=== PATIENT | female | born 1955 | race Caucasian/White ===

== ENCOUNTER → 2016-12-16 | Outpatient (CLI) | payer MEDICARE, BC ==
--- NOTE | 2016-12-16 14:08 | XR ---
EXAMINATION TYPE: XR chest 2V DATE OF EXAM: 12/16/2016 2:02 PM HISTORY: J20.9 Acute bronchitis. REFERENCE: Previous study dated 07/08/2013. FINDINGS: The lungs are overinflated. The heart is enlarged. There is some scarring in the right midl jaz. Lungs otherwise clear. Pleural spaces are clear. IMPRESSION: 1. COPD. 2. CARDIOMEGALY.
== END | disposition home or self-care (01) ==
LOC: RADXRMAIN 13:45
PROVIDERS: ATTEND Family Medicine
DX: J44.9 Chronic obstructive pulmonary disease, unspecified (principal); I51.7 Cardiomegaly
CPT/HCPCS: 71020

== ENCOUNTER 2017-05-22 16:06 | Inpatient (IN) | payer MEDICARE, BC ==
[2017-05-22] MEDS ORDERED: SODIUM CHLORIDE 0.9% 1,000 ML IV STA (16:34)
[2017-05-22] MEDS ORDERED: methylPREDNISolone SOD SUCCI 125 MG/2 ML VIAL IV STA (16:34)
[2017-05-22] MEDS ORDERED: ALBUTEROL NEBULIZED 15 MG, IPRATROPIUM NEBULIZED 0.5 MG INHALATION ONE ×2 (16:35)
--- NOTE | 2017-05-22 16:39 | ED ---
General Adult HPI - General Chief complaint: Shortness of Breath Stated complaint: SOB Time Seen by Provider: 05/22/17 16:29 Source: EMS, RN notes reviewed Mode of arrival: EMS Limitations: no limitations - History of Present Illness Initial comments: Patient 61-year-old female significant past ALLERGIC for COPD, who presents emergency room today with chief complaint of increased cough congestion. Does not that she saw her family doctor yesterday was started on antibiotics for sinus infection. States not started antibiotic. Patient does have breathing treatments at home has not used one at home. States she did call EMS because she has had increased cough congestion and some chest pain that started this morning approximately 10:30 AM. States breathing treatment given by EMS to give her some relief. States still feeling short of breath still having cough with positive sputum production that is green in color. Patient denies any recent fever, chills, chest pain, back pain, abdominal pain, nausea or vomiting , numbness or tingling, dysuria or hematuria, constipation or diarrhea, headaches or visual changes, or any other complaints. - Related Data Home Medications Medication Instructions Recorded Confirmed Digoxin [Lanoxin] 125 mcg PO DAILY 05/22/17 05/22/17 Escitalopram [Lexapro] 10 mg PO DAILY 05/22/17 05/22/17 Furosemide [Lasix] 40 mg PO BID 05/22/17 05/22/17 Loratadine [Claritin] 10 mg PO DAILY 05/22/17 05/22/17 Temazepam [Restoril] 30 mg PO HS 05/22/17 05/22/17 Warfarin [Coumadin] 2 mg PO DAILY 05/22/17 05/22/17 oxyCODONE-APAP 10-325MG [Percocet 1 tab PO Q4H PRN 05/22/17 05/22/17 10-325 mg] Allergies Allergy/AdvReac Type Severity Reaction Status Date / Time ciprofloxacin [From Cipro] Allergy Rash/Hives Verified 05/22/17 16:28 Sulfa (Sulfonamide Allergy Rash/Hives Verified 05/22/17 16:28 Antibiotics) Review of Systems ROS Statement: Those systems with pertinent positive or pertinent negative responses have been documented in the HPI. ROS Other: All systems not noted in ROS Statement are negative. Past Medical History Past Medical History: Heart Failure, CVA/TIA, Hypertension Additional Past Medical History / Comment(s): COPD, Back issues History of Any Multi-Drug Resistant Organisms: None Reported Past Surgical History: Cholecystectomy Additional Past Surgical History / Comment(s): ankle surgery (right ankle), Bilateral hand surgery- Carap Tunnel. D'C for miscarriage. Past Psychological History: No Psychological Hx Reported Smoking Status: Current every day smoker Past Alcohol Use History: None Reported Past Drug Use History: None Reported General Exam - General Exam Comments Initial Comments: General: The patient is awake and alert, in no distress, and does not appear acutely ill. Eye: Pupils are equal, round and reactive to light, extra-ocular movements are intact. No nystagmus. There is normal conjunctiva bilaterally. No signs of icterus. Ears, nose, mouth and throat: There are moist mucous membranes and no oral lesions. Neck: The neck is supple, there is no tenderness or JVD. Cardiovascular: There is a regular rate and rhythm. No murmur, rub or gallop is appreciated. Respiratory: Bilateral expiratory wheeze and scattered rhonchi. respirations are non-labored, breath sounds are equal. No stridor, rales. Musculoskeletal: Normal ROM, no tenderness. Strength 5/5. Sensation intact. Pulses equal bilaterally 2+. Neurological: A&O x 3. CN II-XII intact, There are no obvious motor or sensory deficits. Coordination appears grossly intact. Speech is normal. Skin: Skin is warm and dry and no rashes or lesions are noted. Psychiatric: Cooperative, appropriate mood & affect, normal judgment. Limitations: no limitations Course Vital Signs 05/22/17 05/22/17 05/22/17 16:23 16:46 16:59 Temperature 98.1 F Pulse Rate 83 85 83 Respiratory 24 18 Rate Blood Pressure 131/86 117/75 O2 Sat by Pulse 91 L 97 Oximetry 05/22/17 05/22/17 05/22/17 17:02 17:18 17:50 Temperature Pulse Rate 95 94 103 H Respiratory Rate Blood Pressure O2 Sat by Pulse Oximetry 05/22/17 05/22/17 17:59 18:29 Temperature 98.6 F Pulse Rate 114 H 125 H Respiratory 26 H 30 H Rate Blood Pressure 139/90 144/63 O2 Sat by Pulse 96 94 L Oximetry EKG Findings - EKG Comments: EKG Findings:: EKG performed at 1619: Shows atrial fibrillation at 89 bpm. QRS 78. QT/QTC 368/447. No acute ST changes. Medical Decision Making - Medical Decision Making Patient's chest x-ray does show an infiltrate. Patient's labs been reviewed. Patient was given breathing treatment here in the emergency room does admit some improvement. Patient will be admitted or on antibiotics and continued on steroids and breathing treatments. - Lab Data Result diagrams: 05/22/17 16:51 05/22/17 16:51 Lab Results 05/22/17 05/22/17 05/22/17 Range/Units 16:51 16:51 16:51 WBC 9.6 (3.8-10.6) k/uL RBC 4.90 (3.80-5.40) m/uL Hgb 15.5 (11.4-16.0) gm/dL Hct 45.2 (34.0-46.0) % MCV 92.1 (80.0-100.0) fL MCH 31.6 (25.0-35.0) pg MCHC 34.3 (31.0-37.0) g/dL RDW 14.1 (11.5-15.5) % Plt Count 198 (150-450) k/uL Neutrophils % 81 % Lymphocytes % 10 % Monocytes % 7 % Eosinophils % 0 % Basophils % 1 % Neutrophils # 7.8 H (1.3-7.7) k/uL Lymphocytes # 1.0 (1.0-4.8) k/uL Monocytes # 0.6 (0-1.0) k/uL Eosinophils # 0.0 (0-0.7) k/uL Basophils # 0.1 (0-0.2) k/uL PT (9.0-12.0) sec INR (<1.2) APTT (22.0-30.0) sec Sodium 143 (137-145) mmol/L Potassium 4.0 (3.5-5.1) mmol/L Chloride 107 (98-107) mmol/L Carbon Dioxide 24 (22-30) mmol/L Anion Gap 12 mmol/L BUN 8 (7-17) mg/dL Creatinine 0.69 (0.52-1.04) mg/dL Est GFR (MDRD) Af Amer >60 (>60 ml/min/1.73 sqM) Est GFR (MDRD) Non-Af >60 (>60 ml/min/1.73 sqM) Glucose 109 H (74-99) mg/dL Calcium 9.4 (8.4-10.2) mg/dL Total Bilirubin 2.2 H (0.2-1.3) mg/dL AST 44 H (14-36) U/L ALT 35 (9-52) U/L Alkaline Phosphatase 140 H (38-126) U/L Total Creatine Kinase 255 H (30-135) U/L CK-MB (CK-2) 1.0 (0.0-2.4) ng/mL CK-MB (CK-2) Rel Index 0.4 Troponin I <0.012 (0.000-0.034) ng/mL Total Protein 7.5 (6.3-8.2) g/dL Albumin 4.5 (3.5-5.0) g/dL 05/22/17 Range/Units 16:51 WBC (3.8-10.6) k/uL RBC (3.80-5.40) m/uL Hgb (11.4-16.0) gm/dL Hct (34.0-46.0) % MCV (80.0-100.0) fL MCH (25.0-35.0) pg MCHC (31.0-37.0) g/dL RDW (11.5-15.5) % Plt Count (150-450) k/uL Neutrophils % % Lymphocytes % % Monocytes % % Eosinophils % % Basophils % % Neutrophils # (1.3-7.7) k/uL Lymphocytes # (1.0-4.8) k/uL Monocytes # (0-1.0) k/uL Eosinophils # (0-0.7) k/uL Basophils # (0-0.2) k/uL PT 19.3 H (9.0-12.0) sec INR 2.0 H (<1.2) APTT 31.1 H (22.0-30.0) sec Sodium (137-145) mmol/L Potassium (3.5-5.1) mmol/L Chloride (98-107) mmol/L Carbon Dioxide (22-30) mmol/L Anion Gap mmol/L BUN (7-17) mg/dL Creatinine (0.52-1.04) mg/dL Est GFR (MDRD) Af Amer (>60 ml/min/1.73 sqM) Est GFR (MDRD) Non-Af (>60 ml/min/1.73 sqM) Glucose (74-99) mg/dL Calcium (8.4-10.2) mg/dL Total Bilirubin (0.2-1.3) mg/dL AST (14-36) U/L ALT (9-52) U/L Alkaline Phosphatase (38-126) U/L Total Creatine Kinase (30-135) U/L CK-MB (CK-2) (0.0-2.4) ng/mL CK-MB (CK-2) Rel Index Troponin I (0.000-0.034) ng/mL Total Protein (6.3-8.2) g/dL Albumin (3.5-5.0) g/dL Disposition Clinical Impression: Community acquired pneumonia, COPD (chronic obstructive pulmonary disease) Disposition: ADMITTED IP TO THIS HOSP Condition: Stable Referrals: Raphael Egan MD [Primary Care Provider] - 1-2 days Time of Disposition: 18:56
[2017-05-22 17:58] LABS: Basophils # (A) 0.1 k/uL (0-0.2); Basophils % (A) 1 %; CH 30.9; CHCM 33.8; Eosinophils % (A) 0 %; HCT 45.2 % (34.0-46.0); HDW 2.73; HGB 15.5 gm/dL (11.4-16.0); Luc # (Auto) 0.15; Luc % (Auto) 2; Lymphocytes % (A) 10 %; MCH 31.6 pg (25.0-35.0); MCHC 34.3 g/dL (31.0-37.0); MCV 92.1 fL (80.0-100.0); Mean Platelet Volume 7.9; Monocytes # (A) 0.6 k/uL (0-1.0); Monocytes % (A) 7 %; Neutrophils # (A) 7.8 k/uL (1.3-7.7); Neutrophils % (A) 81 %; RDW 14.1 % (11.5-15.5); WBC 9.6 k/uL (3.8-10.6)
[2017-05-22] MEDS ORDERED: oxyCODONE-APAP 10-325MG 1 EACH TAB PO STA (18:01)
[2017-05-22 18:09] LABS: Partial Thromboplastin Time 31.1 sec (22.0-30.0); Prothrombin Time 19.3 sec (9.0-12.0)
[2017-05-22 18:14] LABS: ALT 35 U/L (9-52); AST 44 U/L (14-36); Alkaline Phosphatase 140 U/L (38-126); Anion Gap 12 mmol/L; Blood Urea Nitrogen 8 mg/dL (7-17); Calcium 9.4 mg/dL (8.4-10.2); Carbon Dioxide 24 mmol/L (22-30); Chloride 107 mmol/L (98-107); Creatine Kinase 255 U/L (30-135); Glucose 109 mg/dL (74-99); Non-African American GFR(MDRD) >60 (>60 ml/min/1.73 sqM); Sodium 143 mmol/L (137-145); Total Bilirubin 2.2 mg/dL (0.2-1.3); Total Protein 7.5 g/dL (6.3-8.2)
[2017-05-22 18:26] LABS: Troponin I <0.012 ng/mL (0.000-0.034)
--- NOTE | 2017-05-22 18:29 | XR ---
EXAMINATION TYPE: XR chest 2V DATE OF EXAM: 05/22/2017 COMPARISON: 12/16/2016 HISTORY: Cough TECHNIQUE: Frontal and lateral views of the chest are obtained. FINDINGS: Heart is enlarged. There is coarsening of interstitial markings. There is some patchy infi ltrate in the right lower lobe. There is also a 2 cm infiltrate in the right midlung. There is no hea rt failure. There is no definite pleural effusion. Bony thorax is intact. IMPRESSION: New Pulmonary infiltrates in the right lung compared to last exam. Pulmonary fibrotic changes. Stable cardiomegaly. No gross heart failure.
[2017-05-22] MEDS ORDERED: PNEUMONIA PROTOCOL UTILIZED 1 EACH MISC PO PRN (19:06)
[2017-05-22] MEDS ORDERED: AZITHROMYCIN 500 MG in SODIUM CHLORIDE 0.9% 250 ML IVPB STA (19:06)
[2017-05-22] MEDS: SODIUM CHLORIDE 0.9% 1,000 ML IV SCH (19:36)
[2017-05-22] MEDS ORDERED: FUROSEMIDE 40 MG TAB PO SCH (19:45)
[2017-05-22 20:12] LABS: VBG PH 7.4 (7.31-7.41)
[2017-05-22] MEDS: IPRATROPIUM-ALBUTEROL 3 ML NEB INHALATION SCH (20:17)
[2017-05-22] MEDS: TEMAZEPAM 30 MG CAP PO SCH (22:09)
[2017-05-22] MEDS: WARFARIN 2 MG TAB PO SCH (22:10)
[2017-05-22] MEDS: oxyCODONE-APAP 10-325MG 1 EACH TAB PO PRN (22:12)
[2017-05-23] MEDS: methylPREDNISolone SOD SUCCI 125 MG/2 ML VIAL IV SCH ×5 (00:23→23:49)
[2017-05-23] MEDS: IPRATROPIUM-ALBUTEROL 3 ML NEB INHALATION SCH ×7 (00:33→22:35)
[2017-05-23] MEDS ORDERED: SODIUM CHLORIDE 0.9% 1,000 ML IV ONE (01:15)
[2017-05-23 01:32] LABS: Glucose,Whole Blood 219 mg/dL (75-99)
[2017-05-23 01:57] LABS: Glucose,Whole Blood 173 mg/dL (75-99)
[2017-05-23] MEDS: oxyCODONE-APAP 10-325MG 1 EACH TAB PO PRN ×6 (02:17→23:50)
[2017-05-23] MEDS: ALPRAZolam 0.25 MG TAB PO PRN ×3 (02:17→18:46)
[2017-05-23] MEDS: SODIUM CHLORIDE 0.9% 1,000 ML IV SCH (02:19)
[2017-05-23] MEDS ORDERED: NALOXONE 0.4 MG/ML 1 ML VIAL IV PRN (04:02)
[2017-05-23 04:23] LABS: Basophils % (A) 0 %; CH 31.9; CHCM 33.8; Eosinophils % (A) 1 %; HCT 39.7 % (34.0-46.0); HDW 2.77; HGB 13.1 gm/dL (11.4-16.0); Luc # (Auto) 0.04; Luc % (Auto) 1; Lymphocytes # (A) 0.5 k/uL (1.0-4.8); Lymphocytes % (A) 7 %; MCH 31.4 pg (25.0-35.0); MCV 94.9 fL (80.0-100.0); Mean Platelet Volume 8.4; Monocytes # (A) 0.1 k/uL (0-1.0); Monocytes % (A) 2 %; Neutrophils # (A) 5.7 k/uL (1.3-7.7); Neutrophils % (A) 90 %; RBC 4.19 m/uL (3.80-5.40); RDW 15.1 % (11.5-15.5); WBC 6.3 k/uL (3.8-10.6); WBC (Perox) 6.73
[2017-05-23 04:29] LABS: INR 2.2 (<1.2)
[2017-05-23 04:43] LABS: ALT 31 U/L (9-52); AST 30 U/L (14-36); Alkaline Phosphatase 110 U/L (38-126); Anion Gap 9 mmol/L; Blood Urea Nitrogen 11 mg/dL (7-17); Calcium 8.1 mg/dL (8.4-10.2); Carbon Dioxide 22 mmol/L (22-30); Chloride 111 mmol/L (98-107); Glucose 178 mg/dL (74-99); Magnesium 1.8 mg/dL (1.6-2.3); Non-African American GFR(MDRD) >60 (>60 ml/min/1.73 sqM); Phosphorous 3.5 mg/dL (2.5-4.5); Potassium 3.3 mmol/L (3.5-5.1); Sodium 142 mmol/L (137-145); Total Bilirubin 0.9 mg/dL (0.2-1.3); Total Protein 5.9 g/dL (6.3-8.2)
[2017-05-23] MEDS: MAGNESIUM SULFATE-D5W PMX 1 GM in DEXTROSE/WATER 1 100ML.BAG IVPB SCH ×2 (06:13→07:19)
[2017-05-23] MEDS: POTASSIUM CHLORIDE 10 MEQ, LIDOCAINE 2% INJ 10 MG in SODIUM CHLORIDE 0.9% 100 ML IV SCH ×2 (06:14→07:19)
--- NOTE | 2017-05-23 07:14 | XR ---
EXAMINATION TYPE: XR chest 1V DATE OF EXAM: 05/23/2017 CLINICAL HISTORY: Difficulty breathing progress study. TECHNIQUE: Single AP portable upright view of the chest is obtained. COMPARISON: Chest x-ray from one day earlier FINDINGS: Cardiac silhouette size is stable and enlarged. There is chronic minimal change with right midlung and bibasilar opacity redemonstrated. Increased central vascular congestion is present. Osse ous structures are intact. IMPRESSION: Overall stable findings, cardiomegaly and chronic parenchymal change with mild central vascular congestion and bibasilar infiltrate and/or atelectasis with small bilateral pleural effusion s and patchy right midlung infiltrate all redemonstrated.
[2017-05-23] MEDS: INSULIN LISPRO (humaLOG) 300 UNIT/3 ML VIAL SQ SCH ×4 (09:38→21:22)
[2017-05-23] MEDS: NICOTINE 14MG/24HR PATCH TRANSDERM SCH ×2 (09:40→10:33)
[2017-05-23] MEDS: DIGOXIN 125 MCG TAB PO SCH (09:41)
[2017-05-23] MEDS: PANTOPRAZOLE 40 MG TABLET PO SCH (09:41)
--- NOTE | 2017-05-23 10:05 | P.CNPUL ---
History of Present Illness Consult date: 05/23/17 Reason for consult: dyspnea History of present illness: A 61-year-old female patient, previous history of mitral valve stenosis and chronic atrial fibrillation and COPD, presented to the hospital because of increased shortness of breath, cough and chest congestion. No reported fever or chills. She started off with some sinus infection for which she was given antibiotics on outpatient basis through her primary care physician. Subsequently she started having increased dyspnea. No pleurisy. No hemoptysis. Denied having any fever or chills. Denied having any chest pain or back pain or shoulder pain. Her chest x-ray shows right upper lobe and the right infrahilar pulmonary infiltrate. The patient was placed on a BiPAP initially and she got moved to the intensive care unit. This morning the BiPAP is off and she is currently on oxygen at 2 L and pulse ox around 98%. Hemodynamically stable. No nausea. No vomiting. No change in mental status. No other complaints otherwise. She remains in atrial fibrillation with a controlled rate. Her PT/INR is therapeutic for now. Review of Systems Constitutional: Reports weakness Eyes: denies blurred vision, denies bulging eye, denies decreased vision Ears: deny: decreased hearing, ear discharge, earache Ears, nose, mouth and throat: Denies headache, Denies sore throat Cardiovascular: Reports dyspnea on exertion, Reports shortness of breath Respiratory: Reports cough, Reports dyspnea, Reports wheezing Gastrointestinal: Denies abdominal pain, Denies diarrhea, Denies nausea, Denies vomiting Genitourinary: Denies dysuria, Denies hematuria Musculoskeletal: Denies myalgias Musculoskeletal: absent: ankle pain, ankle stiffness, ankle swelling Integumentary: Denies pruritus, Denies rash Neurological: Reports weakness, Denies numbness Psychiatric: Denies anxiety, Denies depression Endocrine: Denies fatigue, Denies weight change Past Medical History Past Medical History: Heart Failure, CVA/TIA, Hypertension Additional Past Medical History / Comment(s): COPD, chronic atrial fibrillation , chronic back pain, CVA/multiple TIA, and issues weakness and shuffling of bilateral feet due to previous stroke, CHF, valvular heart disease-possibly Mitral valve stenosis post valvuloplasty (2012), ASD closure, depression, previous pneumonias 2011 and 2015 History of Any Multi-Drug Resistant Organisms: None Reported Past Surgical History: Cholecystectomy Additional Past Surgical History / Comment(s): ankle surgery (right ankle), Bilateral hand surgery- Carap Tunnel. D'C for miscarriage. Past Anesthesia/Blood Transfusion Reactions: No Reported Reaction Past Psychological History: No Psychological Hx Reported Smoking Status: Current every day smoker Past Alcohol Use History: None Reported Past Drug Use History: None Reported - Past Family History Mother Family Medical History: No Reported History Father Additional Family Medical History / Comment(s): heart failure, from heart attack at 74 Medications and Allergies Home Medications Medication Instructions Recorded Confirmed Type Digoxin [Lanoxin] 125 mcg PO DAILY 05/22/17 05/22/17 History Escitalopram [Lexapro] 10 mg PO DAILY 05/22/17 05/22/17 History Furosemide [Lasix] 40 mg PO BID 05/22/17 05/22/17 History Loratadine [Claritin] 10 mg PO DAILY 05/22/17 05/22/17 History Temazepam [Restoril] 30 mg PO HS 05/22/17 05/22/17 History Warfarin [Coumadin] 2 mg PO DAILY 05/22/17 05/22/17 History oxyCODONE-APAP 10-325MG [Percocet 1 tab PO Q4H PRN 05/22/17 05/22/17 History 10-325 mg] Allergies Allergy/AdvReac Type Severity Reaction Status Date / Time ciprofloxacin [From Cipro] Allergy Rash/Hives Verified 05/22/17 16:28 Sulfa (Sulfonamide Allergy Rash/Hives Verified 05/22/17 16:28 Antibiotics) Physical Exam Vitals: Vital Signs Temp Pulse Pulse Resp BP BP Pulse Ox 05/23/17 08:03 75 05/23/17 07:52 97 05/23/17 06:00 83 13 98/53 99 05/23/17 05:00 69 20 80/55 98 05/23/17 04:00 97.9 F 70 86 21 84/55 97 05/23/17 03:32 76 05/23/17 03:23 76 05/23/17 03:00 73 13 105/64 98 05/23/17 02:00 97.9 F 95 21 104/58 99 05/23/17 01:53 92 05/23/17 01:16 97.6 F 86 14 99/61 97 05/23/17 01:00 97.4 F L 100 14 95/57 100 05/23/17 00:52 97 05/23/17 00:34 96 05/23/17 00:07 98.1 F 101 H 14 74/50 97 05/23/17 00:00 104 H 05/22/17 23:05 107 H 05/22/17 23:00 98.1 F 107 H 18 93/56 97 05/22/17 20:34 90 05/22/17 20:30 98.1 F 107 H 18 109/65 100 05/22/17 20:24 98 05/22/17 19:37 98.2 F 115 H 26 H 158/88 95 05/22/17 19:11 95 26 H 92 L 05/22/17 19:09 95 05/22/17 18:29 98.6 F 125 H 30 H 144/63 94 L 05/22/17 17:59 114 H 26 H 139/90 96 05/22/17 17:50 103 H 05/22/17 17:18 94 05/22/17 17:02 95 05/22/17 16:59 83 18 117/75 97 05/22/17 16:46 85 05/22/17 16:23 98.1 F 83 24 131/86 91 L Intake and Output 05/22/17 05/23/17 05/23/17 22:59 06:59 14:59 Intake Total 0 1225 200 Output Total 200 40 Balance 0 1025 160 Intake: IV 1225 200 Magnesium Sulfate-D5w Pmx 100 1 gm In Dextrose/Water 1 100ml.bag @ 100 mls/hr IVPB Q1H JUAN A Rx#: [id number] Potassium Chloride 10 meq 100 Lidocaine 2% Inj 10 mg In Sodium Chloride 0.9% 100 ml @ 100 mls/hr IV Q1HR JUAN A Rx#:[id number] Sodium Chloride 0.9% 1, 1225 000 ml @ 75 mls/hr IV . [id number] STA Rx#:[id number] Oral 0 Output: Urine 200 40 Other: Voiding Method Indwelling Catheter Weight 64.41 kg 68.6 kg The patient appeared well nourished and normally developed. Vital signs as documented. Head exam is unremarkable. No scleral icterus or corneal arcus noted. Neck is without jugular venous distension, thyromegaly, or carotid bruits. Carotid upstrokes are brisk bilaterally. Lungs are diminished bilaterally and there are some scattered expiratory wheezes.. Cardiac exam reveals the PMI to be normally sized and situated. Rhythm is irregular. First and second heart sounds normal. No murmurs, rubs or gallops. There is a faint systolic ejection murmur/diastolic murmur related to mitral stenosis. Abdominal exam reveals normal bowel sounds, no masses, no organomegaly and no aortic enlargement. Extremities are nonedematous and both femoral and pedal pulses are normal. Neurologically the patient is awake and alert. There is some chronic left-sided weakness compared to the right. Speech is within normal. No confusion. No change in mental status. Results - Laboratory Findings CBC and BMP: 05/23/17 04:16 05/23/17 04:12 PT/INR, D-dimer PT 21.0 sec (9.0-12.0) H 05/23/17 04:12 INR 2.2 (<1.2) H 05/23/17 04:12 Abnormal lab findings: Abnormal Labs 05/22/17 05/22/17 05/22/17 16:51 16:51 16:51 Neutrophils # 7.8 H Lymphocytes # PT INR APTT VBG pCO2 VBG HCO3 Potassium Chloride Glucose 109 H POC Glucose (mg/dL) Plasma Lactic Acid Ulises Calcium Total Bilirubin 2.2 H AST 44 H Alkaline Phosphatase 140 H Total Creatine Kinase 255 H Total Protein 05/22/17 05/22/17 05/23/17 16:51 19:50 00:04 Neutrophils # Lymphocytes # PT 19.3 H INR 2.0 H APTT 31.1 H VBG pCO2 35 L VBG HCO3 21 L Potassium Chloride Glucose POC Glucose (mg/dL) Plasma Lactic Acid Ulises 5.1 H* Calcium Total Bilirubin AST Alkaline Phosphatase Total Creatine Kinase Total Protein 05/23/17 05/23/17 05/23/17 01:12 01:53 04:12 Neutrophils # Lymphocytes # PT INR APTT VBG pCO2 VBG HCO3 Potassium 3.3 L Chloride 111 H Glucose 178 H POC Glucose (mg/dL) 219 H 173 H Plasma Lactic Acid Ulises Calcium 8.1 L Total Bilirubin AST Alkaline Phosphatase Total Creatine Kinase Total Protein 5.9 L 05/23/17 05/23/17 05/23/17 04:12 04:12 04:16 Neutrophils # Lymphocytes # 0.5 L PT 21.0 H INR 2.2 H APTT VBG pCO2 VBG HCO3 Potassium Chloride Glucose POC Glucose (mg/dL) Plasma Lactic Acid Ulises 2.3 H* Calcium Total Bilirubin AST Alkaline Phosphatase Total Creatine Kinase Total Protein - Diagnostic Findings Chest x-ray: image reviewed Assessment and Plan Plan: Assessment 1 acute COPD exacerbation with secondary shortness of breath 2 acute right lung pneumonia with patchy infiltration involving the right midlung of the right lower lobe infrahilar area. 3 chronic atrial fibrillation, rate controlled and the patient is fully anticoagulated 4 chronic mitral stenosis 5 history of CVA and multiple TIAs with some residual left-sided weakness 6 smoker 7 history of ASD closure 8 lactic acidosis improving Plan The patient is improving. The patient would have a sputum Gram stain and culture. We will have a blood culture. We will continue Rocephin and Zithromax. Continue bronchodilator [id number]. IV Solu-Medrol. Discontinue the BiPAP. Smoking cessation counseling. Nicotine patch. Lactic acid level is improved and the patient can be transferred out of the intensive care unit. We'll continue warfarin with daily PT/INR monitoring. Repeat chest x-ray with next 24-48 hours. We'll follow.
[2017-05-23] MEDS: ESCITALOPRAM 10 MG TAB PO SCH (10:28)
[2017-05-23] MEDS: LORATADINE 10 MG TAB PO SCH (10:28)
[2017-05-23 10:40] LABS: Appearance,Urine Clear (Clear); Bacteria,Urine Rare /hpf; Bilirubin,Urine Negative (Negative); Glucose,Urine (UA) Trace (Negative); Ketones,Urine 1+ (Negative); Leukocyte Esterase,Urine Small (Negative); Mucus,Urine Rare /hpf; Nitrite,Urine Negative (Negative); PH, Urine 5.5 (5.0-8.0); Particle Count 4367; Protein,Urine Trace (Negative); RBC,Urine 20 /hpf (0-5); UA Billing (MACRO vs. MICRO) MICRO; Urobilinogen,Urine <2.0 mg/dL (<2.0); WBC,Urine 9 /hpf (0-5)
[2017-05-23 11:01] LABS: Hemoglobin A1C 5.7 % (4.2-6.1)
--- NOTE | 2017-05-23 11:14 | HP ---
HISTORY AND PHYSICAL I am covering for Dr. Raphael Egan DATE OF SERVICE: 05/23/2017 CHIEF COMPLAINT: Shortness of breath and cough. HISTORY OF PRESENT ILLNESS: This 61-year-old woman with a past history of CVA, TIA, hypertension, history of CHF, history of COPD, history cholecystectomy being followed by Dr. Raphael Egan in the outpatient setting, was not feeling well over the past 3 days. The patient had increasing cough and congestion. The patient was recently started on antibiotics for sinus infection. Because the lack of improvement the patient came to [facility] Emergency Room and was admitted for further evaluation and treatment. Admission chest x-ray, which was personally reviewed by me, showed evidence of possible right-sided pneumonia. The patient admitted for further evaluation and treatment. The patient is on BiPAP also. The BiPAP settings are EPAP of 10 and IPAP of 5 with and 40% FIO2. There is no history of fever or rigors. No history of headache, loss of consciousness or seizures. PAST MEDICAL HISTORY: History of CHF, history of CVA, TIA, hypertension, COPD and back pain. MEDICATIONS: Medications prior to admission include: 1. Coumadin 2 mg p.o. daily. 2. Restoril 30 mg a day. 3. Claritin 10 mg p.o. daily. 4. Lasix 40 mg b.i.d. 5. Lexapro 10 mg daily. 6. Lanoxin 120 mcg p.o. daily. 7. Oxycodone 10 mg q.4h p.r.n. ALLERGIES: CIPRO AND SULFA. FAMILY HISTORY: History of CHF. SOCIAL HISTORY: History of smoking. No history of alcohol intake. REVIEW OF SYSTEMS: ENT: No diminished hearing or vision. CARDIOVASCULAR: As mentioned earlier. RESPIRATORY: As mentioned earlier. GI: No nausea, vomiting or diarrhea. : No dysuria. NERVOUS SYSTEM: No numbness or weakness. ALLERGY/IMMUNOLOGY: No asthma or hayfever. MUSCULOSKELETAL: As mentioned earlier. HEMATOLOGY/ONCOLOGY: No history of anemia. ENDOCRINE: No history of diabetes or hypothyroidism. CONSTITUTIONAL: As mentioned earlier. DERMATOLOGY: Negative. RHEUMATOLOGY: Negative. PSYCHIATRY: As mentioned earlier. PHYSICAL EXAM: Patient is alert, oriented x3. The pulse is 107, blood pressure 93/56, respiration 18, temperature is 98.1, pulse ox 97% on BiPAP settings as above. HEENT: Conjunctivae normal. Oral mucosa moist. NECK: No jugular venous distention. No thyroid enlargement. No carotid bruit. Axillary muscle of respirations are acting. CARDIOVASCULAR: S1, S2 irregular. Ejection systolic murmur present. No S3 or S4. RESPIRATORY: Breathing efforts are markedly increased. Bilateral scattered rhonchi and expiratory wheezing and prolonged wheezing also present. Crackles also present. ABDOMEN: Soft, nontender, no mass palpable. LEGS: No edema, no swelling. NERVOUS SYSTEM: Higher function as mentioned. Moves all four limbs. No focal motor sensory deficits. LYMPHATICS: No lymphadenopathy in the neck, axillae or groin. SKIN: No rash, ulcer or bleeding. LABS: CBC within normal limits. INR is 2, otherwise bilirubin is 2.2. AST is 44, alkaline phosphatase 140. ASSESSMENT: 1. Chronic obstructive pulmonary disease acute exacerbation with acute right lower lobe pneumonia possibly gram-negative present on admission with failure of outpatient treatment with acute hypoxic respiratory failure on BiPAP. 2. History of Cerebrovascular accident, transient ischemic attack. 3. Hypertension. 4. History of back pain. 5. History of congestive heart failure. 6. History cholecystectomy. 7. History of continued ongoing nicotine dependence. RECOMMENDATIONS AND DISCUSSION: I recommend to continue current medication. Continue symptomatic treatment. The patient was started on broad-spectrum IV antibiotics. I will follow the cultures and also consult Dr. Wiley as well. IV steroids. Monitor blood sugars closely. Otherwise continue the BiPAP at this time. Guarded prognosis because of multiple complex medication. DVT prophylaxis. Further recommendations to follow. Will also check a lactate and if it is high we will continue with IV fluids and continue the antibiotics. Further recommendations to follow. Copy of dictation being forwarded to Dr. Egan who is the primary care physician. Smoking cessation advised. We will monitor PT and INRs closely. MMODL / IJN: [id number] / DERRELL
[2017-05-23] MEDS: AZITHROMYCIN 500 MG in SODIUM CHLORIDE 0.9% 250 ML IVPB SCH (12:07)
[2017-05-23 12:50] LABS: Glucose,Whole Blood 155 mg/dL (75-99)
[2017-05-23] MEDS: guaiFENesin SYRUP 100MG/5ML 200 MG/10 ML CUP PO PRN (16:53)
[2017-05-23 17:28] LABS: Glucose,Whole Blood 145 mg/dL (75-99)
[2017-05-23] MEDS ORDERED: WARFARIN 2 MG TAB PO SCH (18:00)
[2017-05-23 20:50] LABS: Glucose,Whole Blood 183 mg/dL (75-99)
[2017-05-23] MEDS: WARFARIN 2 MG TAB PO SCH (21:21)
[2017-05-23] MEDS: TEMAZEPAM 30 MG CAP PO SCH (21:21)
[2017-05-24] MEDS: ALPRAZolam 0.25 MG TAB PO PRN ×3 (01:51→20:13)
[2017-05-24] MEDS: guaiFENesin SYRUP 100MG/5ML 200 MG/10 ML CUP PO PRN ×4 (01:53→20:13)
[2017-05-24] MEDS: IPRATROPIUM-ALBUTEROL 3 ML NEB INHALATION PRN (02:28)
[2017-05-24 05:40] LABS: Glucose,Whole Blood 164 mg/dL (75-99)
[2017-05-24] MEDS: oxyCODONE-APAP 10-325MG 1 EACH TAB PO PRN ×4 (05:40→20:13)
[2017-05-24] MEDS: methylPREDNISolone SOD SUCCI 125 MG/2 ML VIAL IV SCH ×3 (05:45→17:11)
[2017-05-24] MEDS: INSULIN LISPRO (humaLOG) 300 UNIT/3 ML VIAL SQ SCH ×4 (05:48→21:37)
[2017-05-24] MEDS ORDERED: FUROSEMIDE 10 MG/ML 4 ML VIAL IV STA (05:52)
[2017-05-24] MEDS: PANTOPRAZOLE 40 MG TABLET PO SCH (05:59)
[2017-05-24 06:23] LABS: Basophils % (A) 0 %; CH 31.7; CHCM 32.9; Eosinophils % (A) 0 %; HCT 41.3 % (34.0-46.0); HDW 2.86; HGB 13.2 gm/dL (11.4-16.0); Luc # (Auto) 0.15; Luc % (Auto) 1; Lymphocytes # (A) 0.8 k/uL (1.0-4.8); Lymphocytes % (A) 4 %; MCH 30.9 pg (25.0-35.0); MCHC 31.9 g/dL (31.0-37.0); MCV 96.9 fL (80.0-100.0); Monocytes # (A) 0.7 k/uL (0-1.0); Monocytes % (A) 3 %; Neutrophils # (A) 19.6 k/uL (1.3-7.7); Neutrophils % (A) 93 %; RBC 4.26 m/uL (3.80-5.40); RDW 15.4 % (11.5-15.5); WBC 21.2 k/uL (3.8-10.6); WBC (Perox) 21.76
[2017-05-24] MEDS: DIGOXIN 125 MCG TAB PO SCH (06:32)
[2017-05-24 06:43] LABS: INR 3.4 (<1.2); Prothrombin Time 33.2 sec (9.0-12.0)
[2017-05-24 06:48] LABS: ALT 35 U/L (9-52); AST 43 U/L (14-36); Alkaline Phosphatase 106 U/L (38-126); Anion Gap 12 mmol/L; Blood Urea Nitrogen 18 mg/dL (7-17); Calcium 8.8 mg/dL (8.4-10.2); Carbon Dioxide 20 mmol/L (22-30); Chloride 104 mmol/L (98-107); Glucose 140 mg/dL (74-99); Magnesium 2.2 mg/dL (1.6-2.3); Non-African American GFR(MDRD) >60 (>60 ml/min/1.73 sqM); Phosphorous 3.5 mg/dL (2.5-4.5); Potassium 4.3 mmol/L (3.5-5.1); Sodium 136 mmol/L (137-145); Total Bilirubin 0.6 mg/dL (0.2-1.3); Total Protein 6.4 g/dL (6.3-8.2)
[2017-05-24] MEDS: IPRATROPIUM-ALBUTEROL 3 ML NEB INHALATION SCH ×4 (07:41→19:21)
--- NOTE | 2017-05-24 07:43 | XR ---
EXAMINATION TYPE: XR chest 1V DATE OF EXAM: 05/24/2017 CLINICAL HISTORY: Difficulty breathing and pneumonia progress study. TECHNIQUE: Single AP portable upright view of the chest is obtained. COMPARISON: Chest x-ray from one day earlier and older studies. FINDINGS: Cardiac silhouette size is stable and enlarged. There is chronic parenchymal change with r ight midlung and right greater than left bibasilar opacity redemonstrated. Increased central vascular congestion is present. Osseous structures are demineralized. IMPRESSION: Overall stable findings, chronic parenchymal change and cardiomegaly with mild central vascular congestion as well as right greater than left and right midlung infiltrate and/or atelectasi s with probable small bilateral pleural effusions all redemonstrated.
[2017-05-24] MEDS: LORATADINE 10 MG TAB PO SCH (08:34)
[2017-05-24] MEDS: NICOTINE 14MG/24HR PATCH TRANSDERM SCH (08:34)
[2017-05-24] MEDS: ESCITALOPRAM 10 MG TAB PO SCH (08:34)
--- NOTE | 2017-05-24 09:00 | CONS ---
CONSULTATION DATE OF SERVICE: 05/23/2017. REASON FOR CONSULTATION: Pneumonia. HISTORY OF PRESENT ILLNESS: The patient is 61 -year-old female with past medical history significant for COPD who came to the [facility] ER on 05/22/2017 with chief complaints of increasing shortness of breath, cough and congestion. Her symptoms have been going on for a day or 2 prior to admission to the Hospital. Initially started with a sinus infection. The patient did have sinus congestion and sore throat. Subsequently went down to her chest and the patient was having more shortness of breath. She did have a cough and productive phlegm. Greenish sputum and no hemoptysis. She did have some left lower chest pain especially the patient taking deep breath and coughing. With these symptoms, the patient has been evaluated by the ER physician. The patient did have a chest x-ray that was reported to be a new infiltrate in the right mid lung compared to the previous exam. The patient has been admitted to the hospital. She has been started on the Rocephin and azithromycin. ID was consulted for further recommendation regarding antibiotic therapy. REVIEW OF SYSTEMS: Constitutional: Positive for weakness and chills. Eyes no complaint. ENT as per HPI. RESPIRATORY: Per HPI. Cardiovascular: No complaint. Genitourinary: No complaint. Gastrointestinal: No complaint. MUSCULOSKELETAL: No complaint. Integument: No complaint. Psychological: No complaint. Endocrine: No complaint. Neurological: No complaint. PAST MEDICAL HISTORY: Significant for hypertension, CVA, TIA, COPD, chronic back pain . PAST SURGICAL HISTORY: Cholecystectomy, carpal tunnel release, D&C for miscarriage, right ankle surgery. SOCIAL HISTORY: The patient is currently an everyday smoker. No drinking or any drug use. FAMILY HISTORY: No pertinent findings noted. ALLERGIES: CIPROFLOXACIN AND SULFA DRUGS. MEDICATIONS: Include the patient is currently on: 1. Rocephin 1 g daily. 2. She is on azithromycin. 3. Narcan. 4. Nicotine patch. 5. Percocet. 6. Protonix. 7. Restoril. 8. Coumadin. 9. Lexapro. 10.Lanoxin. 11.Xanax. PHYSICAL EXAMINATION: Blood pressure is 115/79 with a pulse of 100, temperature 96.5, she is 97% on 3 L nasal cannula. General description is a middle aged female, lying in bed, in no distress. No tachypnea or accessory muscles of respiration use. HEENT examination no pallor or scleral icterus. Oral mucosa membranes dry. Neck trachea is central. No thyromegaly. Lungs unlabored breathing. Some coarse breath sounds bilaterally. Occasional wheeze. Heart is S1, S2. Regular rate and rhythm. ABDOMEN: Soft, no tenderness. No guarding or rigidity. EXTREMITIES: No edema of feet. Skin examination: No rash or mass palpable. Neurological: Patient is awake, alert, oriented times three. Mood and affect normal. LABS: Hemoglobin is 13.1 with a white count of 6.3, BUN of 11, creatinine 0.70. The potassium was 3.3, lactic acid was 2.3. Liver enzymes are normal. Urine has been slightly positive. Blood culture obtained currently pending. Chest x-ray report as mentioned above. DIAGNOSTIC IMPRESSION AND PLAN: Patient admitted to the hospital with increasing shortness of breath. She did have a cough productive of sputum with right middle infiltrates likely a community-acquired pneumonia in patient who did have apparent response to initial antibiotic therapy started by the primary team in the form of Rocephin and azithromycin. PLAN: 1. We will try to obtain sputum for Gram stain, culture and sensitivity. 2. The patient continue Rocephin 1 g daily. In addition to Azithromycin. 3. Depending upon clinical response and culture, we will adjust her medications further if needed. Thank you for this consultation. Will follow this patient along with you. MMODL / IJN: [id number] /
--- NOTE | 2017-05-24 10:15 | PN ---
PROGRESS NOTE DATE OF SERVICE: 05/23/17 I am covering for Dr. Egan. This 61-year-old woman who was admitted with COPD exacerbation also had right lower lobe pneumonia. Patient also had features of acute hypoxic respiratory failure. Patient is on BiPAP at this time. The patient is slightly improved and the patient has been closely monitored, still in ICU. Blood sugars are being monitored. Patient started on broad-spectrum IV antibiotics. The cultures are negative so far. Dr. Wiley is consulted. PAST MEDICAL HISTORY: Reviewed. REVIEW OF SYSTEMS: Cardiovascular system: No angina or palpitations. Respiratory: As mentioned earlier. GI: No nausea or vomiting. : No dysuria. Central nervous system: No numbness or weakness. MEDICATIONS: Reviewed and include: 1. DuoNeb q.i.d. and p.r.n. 2. Xanax. 3. Zithromax. 4. Rocephin. 5. Lanoxin 125 mcg. 6. Lexapro 10 mg. 7. Robitussin. 8. Claritin. 9. Solu-Medrol 60 IV q.6h. 10.Narcan. 11.Habitrol. 12.Percocet. 13.Protonix. 14.Restoril. 15.Coumadin. PHYSICAL EXAMINATION: The patient is alert and oriented times three. Pulse 100, blood pressure 115/76 , respirations 22, temperature 98.4, pulse ox 97% on 2 L. HEENT: Conjunctivae normal. Oral mucosa moist. Neck is no jugular venous distention. No carotid bruit. No lymph node enlargement. Cardiovascular system is S1, S2 muffled. Respirations: Breath sounds diminished at the bases and scattered rhonchi and crackles. ABDOMEN: Soft, nontender. No mass palpable. Legs no edema. No swelling. Nervous system: Higher functions as mentioned earlier. Moves all four extremities. No focal deficits. Lymphatics: No lymph nodes palpable in the neck, axillae or groin. SKIN: No ulcer, rash or bleeding. LABS: WBC 6.2, hemoglobin 13.1. Other labs and glucose noted. ASSESSMENT: 1. Chronic obstructive pulmonary disease acute exacerbation with acute right lower lobe pneumonia possibly gram-negative present on admission with failure of outpatient treatment with acute hypoxic respiratory failure status post BiPAP. 2. History cerebrovascular accident/transient ischemic attack. 3. Hypertension. 4. Back pain. 5. History of congestive heart failure. 6. History of cholecystectomy. 7. Continued ongoing nicotine dependence. RECOMMENDATIONS AND DISCUSSION: Continue current medications. Continue broad-spectrum IV antibiotics. Monitor blood pressures closely. Continue the high-dose IV steroids. Monitor closely in ICU. Further recommendations to follow. BILL / GABRIELLAN: [id number] / DERRELL
[2017-05-24] MEDS: AZITHROMYCIN 500 MG in SODIUM CHLORIDE 0.9% 250 ML IVPB SCH (11:54)
[2017-05-24 12:01] LABS: Glucose,Whole Blood 178 mg/dL (75-99)
[2017-05-24] MEDS ORDERED: SODIUM CHLORIDE 0.9% 1,000 ML IV ONE (12:18)
--- NOTE | 2017-05-24 14:31 | P.PN ---
Subjective A 61-year-old female patient, previous history of mitral valve stenosis and chronic atrial fibrillation and COPD, presented to the hospital because of increased shortness of breath, cough and chest congestion. No reported fever or chills. She started off with some sinus infection for which she was given antibiotics on outpatient basis through her primary care physician. Subsequently she started having increased dyspnea. No pleurisy. No hemoptysis. Denied having any fever or chills. Denied having any chest pain or back pain or shoulder pain. Her chest x-ray shows right upper lobe and the right infrahilar pulmonary infiltrate. The patient was placed on a BiPAP initially and she got moved to the intensive care unit. This morning the BiPAP is off and she is currently on oxygen at 2 L and pulse ox around 98%. Hemodynamically stable. No nausea. No vomiting. No change in mental status. No other complaints otherwise. She remains in atrial fibrillation with a controlled rate. Her PT/INR is therapeutic for now. On 05/24/2017, the patient is being seen in the follow-up. The patient is still somewhat short of breath and bronchospastic and wheezy secondary to COPD exacerbation. She also has a right lung pneumonia and follow-up chest x-ray from today still showing a right mid/basilar pulmonary infiltrate and small bilateral pleural effusion is again demonstrated. He also has chronic parenchymal change with some background cardiomegaly and pulmonary vessel congestion. As mentioned earlier the patient suffers from chronic microvascular noted and she is feeling chronic atrial fibrillation. Her white cell count came up to 21,000. INR is therapeutic at 3.4. The patient is on broad-spectrum antibiotics and she is receiving Rocephin and Zithromax. Objective - Vital Signs Vital signs: Vital Signs Temp 97.7 F 05/24/17 12:00 Pulse 90 05/24/17 12:00 Resp 24 05/24/17 12:00 BP 98/52 05/24/17 12:00 Pulse Ox 95 05/24/17 12:00 Intake & Output 05/23/17 05/24/17 05/24/17 18:59 06:59 18:59 Intake Total 1770 760 Output Total 510 800 Balance 1260 -40 Weight 68.6 kg 78 kg Intake: IV 950 760 Magnesium Sulfate-D5w Pmx 100 1 gm In Dextrose/Water 1 100ml.bag @ 100 mls/hr IVPB Q1H JUAN A Rx#: [id number] Potassium Chloride 10 meq 100 Lidocaine 2% Inj 10 mg In Sodium Chloride 0.9% 100 ml @ 100 mls/hr IV Q1HR JUAN A Rx#:[id number] Sodium Chloride 0.9% 1, 160 000 ml @ 20 mls/hr IV . Q24H JUAN A Rx#:[id number] Sodium Chloride 0.9% 1, 750 600 000 ml @ 75 mls/hr IV . [id number] STA Rx#:[id number] Intake, IV Titration 100 Amount cefTRIAXone 1,000 mg In 100 Sodium Chloride 0.9% 50 ml @ 100 mls/hr IVPB Q24HR@1800 JUAN A Rx#: [id number] Oral 720 Output: Urine 510 800 Straight 500 Uretheral ([place]) 300 Other: Voiding Method Indwelling Catheter Indwelling Catheter - Exam The patient appeared well nourished and normally developed. Vital signs as documented. Head exam is unremarkable. No scleral icterus or corneal arcus noted. Neck is without jugular venous distension, thyromegaly, or carotid bruits. Carotid upstrokes are brisk bilaterally. Lungs are diminished bilaterally and there are some scattered expiratory wheezes.. Cardiac exam reveals the PMI to be normally sized and situated. Rhythm is irregular. First and second heart sounds normal. No murmurs, rubs or gallops. There is a faint systolic ejection murmur/diastolic murmur related to mitral stenosis. Abdominal exam reveals normal bowel sounds, no masses, no organomegaly and no aortic enlargement. Extremities are nonedematous and both femoral and pedal pulses are normal. Neurologically the patient is awake and alert. There is some chronic left-sided weakness compared to the right. Speech is within normal. No confusion. No change in mental status. - Labs CBC & Chem 7: 05/24/17 05:29 05/24/17 05:29 Labs: Abnormal Lab Results - Last 24 Hours (Table) 05/23/17 05/23/17 05/24/17 Range/Units 17:27 20:48 05:29 WBC 21.2 H (3.8-10.6) k/uL Neutrophils # 19.6 H (1.3-7.7) k/uL Lymphocytes # 0.8 L (1.0-4.8) k/uL PT (9.0-12.0) sec INR (<1.2) Sodium (137-145) mmol/L Carbon Dioxide (22-30) mmol/L BUN (7-17) mg/dL Glucose (74-99) mg/dL POC Glucose (mg/dL) 145 H 183 H (75-99) mg/dL Plasma Lactic Acid Ulises (0.7-2.0) mmol/L AST (14-36) U/L 05/24/17 05/24/17 05/24/17 Range/Units 05:29 05:29 05:39 WBC (3.8-10.6) k/uL Neutrophils # (1.3-7.7) k/uL Lymphocytes # (1.0-4.8) k/uL PT 33.2 H (9.0-12.0) sec INR 3.4 H (<1.2) Sodium 136 L (137-145) mmol/L Carbon Dioxide 20 L (22-30) mmol/L BUN 18 H (7-17) mg/dL Glucose 140 H (74-99) mg/dL POC Glucose (mg/dL) 164 H (75-99) mg/dL Plasma Lactic Acid Ulises (0.7-2.0) mmol/L AST 43 H (14-36) U/L 05/24/17 05/24/17 05/24/17 Range/Units 07:07 11:17 11:49 WBC (3.8-10.6) k/uL Neutrophils # (1.3-7.7) k/uL Lymphocytes # (1.0-4.8) k/uL PT (9.0-12.0) sec INR (<1.2) Sodium (137-145) mmol/L Carbon Dioxide (22-30) mmol/L BUN (7-17) mg/dL Glucose (74-99) mg/dL POC Glucose (mg/dL) 178 H (75-99) mg/dL Plasma Lactic Acid Ulises 2.5 H* 3.2 H* (0.7-2.0) mmol/L AST (14-36) U/L Microbiology - Last 24 Hours (Table) 05/23/17 03:36 Urine Culture - Final Urine,Catheterized 05/22/17 16:51 Blood Culture - Preliminary Blood No Growth after 24 hours Assessment and Plan Plan: Assessment 1 acute COPD exacerbation with secondary shortness of breath 2 acute right lung pneumonia with patchy infiltration involving the right midlung of the right lower lobe infrahilar area. 3 chronic atrial fibrillation, rate controlled and the patient is fully anticoagulated 4 chronic mitral stenosis 5 history of CVA and multiple TIAs with some residual left-sided weakness 6 smoker 7 history of ASD closure 8 lactic acidosis improving Plan Continue same treatment for now. Continue DuoNeb neb last treatments, IV Rocephin and Zithromax, IV Solu-Medrol. Continue articulation with warfarin. Chest x-ray was noted. Improvement is limited for now. The patient is still bronchospastic and wheezy. For that reason we'll continue the treatment I will anticipate some improvement over the next 24-48 hours.
--- NOTE | 2017-05-24 16:26 | XR ---
Three-view lumbar spine INDICATION: Pain FINDINGS: Lumbar spine is examined in 3 projections. Adjacent to the right L5 transverse processes 0.95 cm calc ification. A mid ureteral stone could be considered. Right side surgical clips are present. Psoas mar gins are normal. There 5 lumbar-type vertebral bodies. The pedicles are intact. There is loss of disc height L4-5 and L5-S1. Vascular calcification is aorta. Vertebral body heights are preserved. IMPRESSIONS: 1. Degenerative disc changes L4-5 L5-S1. 2. Possible right ureteral stone.
[2017-05-24 17:05] LABS: Glucose,Whole Blood 173 mg/dL (75-99)
[2017-05-24] MEDS: PIPERACILLIN-TAZOBACTAM 3.375 GM in DEXTROSE/WATER 1 50ML.BAG IVPB SCH (17:10)
--- NOTE | 2017-05-24 20:15 | PN ---
PROGRESS NOTE DATE OF SERVICE: 05/24/2017 I am covering for Dr. Egan. This 61-year-old woman was admitted to the hospital with COPD exacerbation and right lower lobe pneumonia possibly gram-negative. Still complaining of increasing shortness of breath. The patient was complaining of back pain also. The patient on broad-spectrum IV antibiotics. Lactate is still elevated. PAST MEDICAL HISTORY: Past medical history reviewed. REVIEW OF SYSTEMS: Cardio system: No angina or palpations. Respiratory: As mentioned. GI: No nausea, vomiting, diarrhea. no dysuria, or retention. Nervous system: No numbness. Generalized weakness present. Musculoskeletal as mentioned earlier. CURRENT MEDICATIONS ARE: Reviewed which include the current medications reviewed include: 1. DuoNeb q.i.d. and p.r.n. 2. Xanax 0.5 t.i.d. 3. Zithromax 5 mg daily. 4. Rocephin. 5. Lanoxin. 6. Lexapro 10 mg daily. 7. Robitussin. 8. Humalog. 9. Claritin. 10.Solu-Medrol 60 IV q.6h. 11.Pneumonia protocol. 12.Habitrol. 13.Percocet. 14.Protonix. 15.Zestril. 16.Coumadin. PHYSICAL EXAMINATION: Patient is alert and oriented times three. Pulse 98, blood pressure 98/52, respirations 16, temp 97.7, pulse ox 94% on 2 L. HEENT: Conjunctivae normal. Oral mucosa moist. Neck is no jugular venous distention. No carotid bruit. No lymph node enlargement. Cardio system: S1, S2 muffled. Breath sounds diminished at the bases. A few scattered rhonchi and crackles. Abdomen is soft, nontender. Legs no edema. No swelling. Central nervous system: No focal deficits. LABS: WBC 21.2, sodium 133, lactate noted. ASSESSMENT: 1. Chronic obstructive pulmonary disease acute exacerbation secondary to pneumonia possibly gram-negative with sepsis present on admission with failure of outpatient treatment with acute hypoxic respiratory failure status post BiPAP. 2. History cerebrovascular accident, transient ischemic attack. 3. Hypertension. 4. History back surgery. 5. History of congestive heart failure. 6. History of cholecystectomy. 7. Continued ongoing nicotine dependence. RECOMMENDATIONS AND DISCUSSION: Continue current management and treatment. Continue symptomatic treatment. Otherwise at this time recommend antibiotics changed to Zosyn. Continue follow the cultures. Guarded prognosis because of multiple complex medical issues. Further recommendations to follow. MMODL / IJN: [id number] /
[2017-05-24 20:36] LABS: Glucose,Whole Blood 135 mg/dL (75-99)
[2017-05-24] MEDS: SODIUM CHLORIDE 0.9% 1,000 ML IV SCH (21:37)
[2017-05-24] MEDS: TEMAZEPAM 30 MG CAP PO SCH (21:38)
[2017-05-24] MEDS: WARFARIN 2 MG TAB PO SCH (21:38)
[2017-05-25] MEDS: oxyCODONE-APAP 10-325MG 1 EACH TAB PO PRN ×5 (00:11→23:47)
[2017-05-25] MEDS: PIPERACILLIN-TAZOBACTAM 3.375 GM in DEXTROSE/WATER 1 50ML.BAG IVPB SCH ×4 (00:12→23:47)
[2017-05-25] MEDS: methylPREDNISolone SOD SUCCI 125 MG/2 ML VIAL IV SCH ×5 (00:12→23:41)
[2017-05-25] MEDS: guaiFENesin SYRUP 100MG/5ML 200 MG/10 ML CUP PO PRN ×2 (04:45→11:52)
[2017-05-25 05:44] LABS: Glucose,Whole Blood 145 mg/dL (75-99)
[2017-05-25] MEDS: INSULIN LISPRO (humaLOG) 300 UNIT/3 ML VIAL SQ SCH ×4 (06:30→20:50)
[2017-05-25] MEDS: PANTOPRAZOLE 40 MG TABLET PO SCH (06:31)
[2017-05-25 06:34] LABS: Basophils % (A) 0 %; CH 30.5; CHCM 32.3; Eosinophils % (A) 0 %; HCT 40.2 % (34.0-46.0); HDW 2.85; HGB 13.2 gm/dL (11.4-16.0); Luc # (Auto) 0.12; Luc % (Auto) 1; Lymphocytes # (A) 0.6 k/uL (1.0-4.8); Lymphocytes % (A) 4 %; MCH 31.2 pg (25.0-35.0); MCHC 32.8 g/dL (31.0-37.0); MCV 95.3 fL (80.0-100.0); Mean Platelet Volume 8.4; Monocytes # (A) 0.4 k/uL (0-1.0); Monocytes % (A) 3 %; Neutrophils # (A) 13.1 k/uL (1.3-7.7); Neutrophils % (A) 92 %; RBC 4.22 m/uL (3.80-5.40); RDW 14.7 % (11.5-15.5); WBC 14.2 k/uL (3.8-10.6); WBC (Perox) 15.56
[2017-05-25 06:45] LABS: ALT 46 U/L (9-52); AST 52 U/L (14-36); Alkaline Phosphatase 113 U/L (38-126); Anion Gap 9 mmol/L; Blood Urea Nitrogen 17 mg/dL (7-17); Carbon Dioxide 23 mmol/L (22-30); Chloride 107 mmol/L (98-107); Glucose 134 mg/dL (74-99); Magnesium 2.2 mg/dL (1.6-2.3); Non-African American GFR(MDRD) >60 (>60 ml/min/1.73 sqM); Phosphorous 3.1 mg/dL (2.5-4.5); Sodium 139 mmol/L (137-145); Total Protein 6.2 g/dL (6.3-8.2)
[2017-05-25 06:54] LABS: Prothrombin Time 51.4 sec (9.0-12.0)
[2017-05-25 07:00] LABS: INR 5.2 (<1.2)
--- NOTE | 2017-05-25 07:42 | XR ---
EXAMINATION TYPE: XR chest 1V DATE OF EXAM: 05/25/2017 CLINICAL HISTORY: Difficulty breathing and cough progress study. TECHNIQUE: Single AP portable upright view of the chest is obtained. COMPARISON: Chest x-ray from one day earlier and older studies. FINDINGS: Cardiac silhouette size is stable and enlarged. There is chronic parenchymal change with i mproved aeration right midlung and persistent right greater than left bibasilar opacity redemonstrate d. Increased central vascular congestion is felt redemonstrated. Osseous structures are demineralized . IMPRESSION: Persistent cardiomegaly with suspected mild central vascular congestion and right greater than left bibasilar atelectasis and/or infiltrate. Improved aeration right midlung is noted.
[2017-05-25] MEDS: IPRATROPIUM-ALBUTEROL 3 ML NEB INHALATION SCH ×4 (08:25→19:58)
[2017-05-25] MEDS: LORATADINE 10 MG TAB PO SCH (09:14)
[2017-05-25] MEDS: ESCITALOPRAM 10 MG TAB PO SCH (09:14)
[2017-05-25] MEDS: NICOTINE 14MG/24HR PATCH TRANSDERM SCH (09:14)
[2017-05-25] MEDS: AZITHROMYCIN 500 MG TAB PO SCH (09:14)
[2017-05-25] MEDS: DIGOXIN 125 MCG TAB PO SCH (09:14)
[2017-05-25] MEDS ORDERED: FUROSEMIDE 10 MG/ML 4 ML VIAL IV STA (11:19)
[2017-05-25 11:42] LABS: Glucose,Whole Blood 152 mg/dL (75-99)
[2017-05-25] MEDS: ALPRAZolam 0.25 MG TAB PO PRN ×2 (11:53→20:50)
--- NOTE | 2017-05-25 12:52 | PN ---
PROGRESS NOTE DATE OF SERVICE: 05/24/2017 REASON FOR FOLLOWUP: Pneumonia. INTERVAL HISTORY: The patient is afebrile. She is breathing comfortably. Still having a cough but less productive. No new chest pain. No abdominal pain. No nausea, vomiting, diarrhea. EXAMINATION: Blood pressure 130/75 with a pulse of 121, temperature of 96.9. She is 96% on 2 liters nasal cannula. GENERAL DESCRIPTION: Middle-aged female lying in bed, in no distress. RESPIRATORY SYSTEM: Unlabored breathing. Bilateral expiratory wheeze. Heart is S1, S2 regular. ABDOMEN: Soft. No tenderness. LAB: Hemoglobin is 13 with a white cell count of 21.2. DIAGNOSTIC IMPRESSION: Patient admitted to the hospital with difficulty breathing, likely multifactorial with a component of chronic obstructive pulmonary exacerbation, tracheobronchitis and pneumonia, community acquired. Still has significant wheeze. Blood cultures negative. The patient mentioned sputum was provided, unfortunately, not finalized bu the micro lab. Will follow the results. Keep the patient on the Rocephin and erythromycin. Still has elevated white count, likely secondary to steroid effect. MMODL / IJN: [id number] /
--- NOTE | 2017-05-25 13:19 | P.PN ---
Subjective A 61-year-old female patient, previous history of mitral valve stenosis and chronic atrial fibrillation and COPD, presented to the hospital because of increased shortness of breath, cough and chest congestion. No reported fever or chills. She started off with some sinus infection for which she was given antibiotics on outpatient basis through her primary care physician. Subsequently she started having increased dyspnea. No pleurisy. No hemoptysis. Denied having any fever or chills. Denied having any chest pain or back pain or shoulder pain. Her chest x-ray shows right upper lobe and the right infrahilar pulmonary infiltrate. The patient was placed on a BiPAP initially and she got moved to the intensive care unit. This morning the BiPAP is off and she is currently on oxygen at 2 L and pulse ox around 98%. Hemodynamically stable. No nausea. No vomiting. No change in mental status. No other complaints otherwise. She remains in atrial fibrillation with a controlled rate. Her PT/INR is therapeutic for now. On 05/24/2017, the patient is being seen in the follow-up. The patient is still somewhat short of breath and bronchospastic and wheezy secondary to COPD exacerbation. She also has a right lung pneumonia and follow-up chest x-ray from today still showing a right mid/basilar pulmonary infiltrate and small bilateral pleural effusion is again demonstrated. He also has chronic parenchymal change with some background cardiomegaly and pulmonary vessel congestion. As mentioned earlier the patient suffers from chronic microvascular noted and she is feeling chronic atrial fibrillation. Her white cell count came up to 21,000. INR is therapeutic at 3.4. The patient is on broad-spectrum antibiotics and she is receiving Rocephin and Zithromax. On 05/25/2017 I'm seeing this patient in follow-up. She is doing slightly better compared to yesterday. The chest x-ray shows improvement in the aeration of the right lung and resolution of the right midlung pulmonary infiltrate. There is however still some pulmonary vessel congestion. The patient will be given another dose of IV Lasix. She currently has a Owusu catheter in place. She remains in atrial fibrillation. PT/INR is subtherapeutic. The Coumadin is currently on hold. She remains on broad- spectrum antibiotics and she still covered with a combination of Zosyn and Zithromax. She is also on DuoNeb nebulized treatments around the clock and she is also on IV Solu-Medrol. Her white cell count is dropping down to 14.2. INR is at 5.2. Objective - Vital Signs Vital signs: Vital Signs Temp 96.8 F L 05/25/17 08:00 Pulse 118 H 05/25/17 12:39 Resp 20 05/25/17 08:00 BP 139/69 05/25/17 08:00 Pulse Ox 92 L 05/25/17 08:28 Intake & Output 05/24/17 05/25/17 05/25/17 18:59 06:59 18:59 Intake Total 1970 607 240 Output Total 3500 3600 Balance -1530 -2993 240 Weight 78 kg Intake: IV 140 320 Sodium Chloride 0.9% 1, 140 320 000 ml @ 20 mls/hr IV . Q24H [facility] Rx#:[id number] Intake, IV Titration 1250 50 Amount Azithromycin 500 mg In 250 Sodium Chloride 0.9% 250 ml @ 125 mls/hr IVPB DAILY@1200 [facility] Rx#: [id number] Piperacillin-Tazobactam 3 50 .375 gm In Dextrose/Water 1 50ml.bag @ 12.5 mls/hr IVPB Q8HR [facility] Rx#: [id number] Sodium Chloride 0.9% 1, 1000 000 ml @ 999 mls/hr IV . Q1H1M [facility] Rx#:[id number] Oral 580 237 240 Output: Urine 3500 3600 Other: Voiding Method Indwelling Catheter Indwelling Catheter Indwelling Catheter - Exam The patient appeared well nourished and normally developed. Vital signs as documented. Head exam is unremarkable. No scleral icterus or corneal arcus noted. Neck is without jugular venous distension, thyromegaly, or carotid bruits. Carotid upstrokes are brisk bilaterally. Lungs are diminished bilaterally and there are some scattered expiratory wheezes.. Cardiac exam reveals the PMI to be normally sized and situated. Rhythm is irregular. First and second heart sounds normal. No murmurs, rubs or gallops. There is a faint systolic ejection murmur/diastolic murmur related to mitral stenosis. Abdominal exam reveals normal bowel sounds, no masses, no organomegaly and no aortic enlargement. Extremities are nonedematous and both femoral and pedal pulses are normal. Neurologically the patient is awake and alert. There is some chronic left-sided weakness compared to the right. Speech is within normal. No confusion. No change in mental status. - Labs CBC & Chem 7: 05/25/17 05:09 05/25/17 05:09 Labs: Abnormal Lab Results - Last 24 Hours (Table) 05/24/17 05/24/17 05/25/17 Range/Units 16:59 20:34 05:09 WBC 14.2 H (3.8-10.6) k/uL Neutrophils # 13.1 H (1.3-7.7) k/uL Lymphocytes # 0.6 L (1.0-4.8) k/uL PT (9.0-12.0) sec INR (<1.2) Glucose (74-99) mg/dL POC Glucose (mg/dL) 173 H 135 H (75-99) mg/dL Plasma Lactic Acid Ulises (0.7-2.0) mmol/L AST (14-36) U/L Total Protein (6.3-8.2) g/dL 05/25/17 05/25/17 05/25/17 Range/Units 05:09 05:09 05:26 WBC (3.8-10.6) k/uL Neutrophils # (1.3-7.7) k/uL Lymphocytes # (1.0-4.8) k/uL PT 51.4 H (9.0-12.0) sec INR 5.2 H* (<1.2) Glucose 134 H (74-99) mg/dL POC Glucose (mg/dL) (75-99) mg/dL Plasma Lactic Acid Ulises 2.5 H* (0.7-2.0) mmol/L AST 52 H (14-36) U/L Total Protein 6.2 L (6.3-8.2) g/dL 05/25/17 05/25/17 05/25/17 Range/Units 05:38 09:05 11:39 WBC (3.8-10.6) k/uL Neutrophils # (1.3-7.7) k/uL Lymphocytes # (1.0-4.8) k/uL PT (9.0-12.0) sec INR (<1.2) Glucose (74-99) mg/dL POC Glucose (mg/dL) 145 H 152 H (75-99) mg/dL Plasma Lactic Acid Ulises 3.2 H* (0.7-2.0) mmol/L AST (14-36) U/L Total Protein (6.3-8.2) g/dL Microbiology - Last 24 Hours (Table) 05/24/17 04:25 Gram Stain - Preliminary Sputum Sputum Culture - Preliminary Gram Neg Bacilli 05/22/17 16:51 Blood Culture - Preliminary Blood No Growth after 48 hours 05/23/17 03:36 Urine Culture - Final Urine,Catheterized Assessment and Plan Plan: Assessment 1 acute COPD exacerbation with secondary shortness of breath, improving slowly 2 acute right lung pneumonia with patchy infiltration involving the right midlung of the right lower lobe infrahilar area, and today's chest x-ray shows improvement of the aeration of the right lung and there is some residual pulmonary vascular congestion/CHF picture on today's chest x-ray. The patient is being diuresis with IV Lasix. 3 chronic atrial fibrillation, rate controlled and the patient is fully anticoagulated, in fact the PT/INR is supratherapeutic 4 chronic mitral stenosis 5 history of CVA and multiple TIAs with some residual left-sided weakness 6 smoker 7 history of ASD closure 8 lactic acidosis improving Plan Continue same treatment for now. Continue DuoNeb neb last treatments, IV Rocephin and Zithromax, IV Solu-Medrol. Give the patient an additional dose of 40 mg of IV Lasix. Keep the Coumadin on hold and monitor the PT/INR. Start tapering steroids as of tomorrow. We'll continue to follow. She will need a cardiothoracic evaluation to later stage regarding her chronic mitral stenosis.
[2017-05-25 17:02] LABS: Glucose,Whole Blood 205 mg/dL (75-99)
[2017-05-25] MEDS: SENNOSIDES 8.6 MG TAB PO PRN (17:13)
[2017-05-25] MEDS ORDERED: PHYTONADIONE ORAL 5 MG/5 ML ORAL.SYRG PO STA (17:38)
[2017-05-25] MEDS: SODIUM CHLORIDE 0.9% 1,000 ML IV SCH ×2 (19:42→20:51)
[2017-05-25 20:27] LABS: Glucose,Whole Blood 122 mg/dL (75-99)
[2017-05-25] MEDS: TEMAZEPAM 30 MG CAP PO SCH (20:50)
[2017-05-26] MEDS: IPRATROPIUM-ALBUTEROL 3 ML NEB INHALATION PRN (00:26)
[2017-05-26] MEDS: oxyCODONE-APAP 10-325MG 1 EACH TAB PO PRN ×5 (04:03→21:14)
[2017-05-26] MEDS: ALPRAZolam 0.25 MG TAB PO PRN ×3 (04:04→21:14)
[2017-05-26] MEDS: guaiFENesin SYRUP 100MG/5ML 200 MG/10 ML CUP PO PRN ×3 (04:11→21:14)
[2017-05-26 05:40] LABS: Glucose,Whole Blood 149 mg/dL (75-99)
[2017-05-26 06:05] LABS: Basophils % (A) 0 %; CHCM 34.2; Eosinophils % (A) 0 %; HCT 41.4 % (34.0-46.0); HGB 13.5 gm/dL (11.4-16.0); Luc # (Auto) 0.14; Luc % (Auto) 1; Lymphocytes # (A) 0.7 k/uL (1.0-4.8); Lymphocytes % (A) 7 %; MCH 30.7 pg (25.0-35.0); MCHC 32.6 g/dL (31.0-37.0); MCV 94.2 fL (80.0-100.0); Mean Platelet Volume 8.8; Monocytes # (A) 0.4 k/uL (0-1.0); Monocytes % (A) 4 %; Neutrophils # (A) 9.5 k/uL (1.3-7.7); Neutrophils % (A) 88 %; RDW 15.1 % (11.5-15.5); WBC 10.8 k/uL (3.8-10.6); WBC (Perox) 11.11
[2017-05-26] MEDS: INSULIN LISPRO (humaLOG) 300 UNIT/3 ML VIAL SQ SCH ×4 (06:11→22:21)
[2017-05-26] MEDS: methylPREDNISolone SOD SUCCI 125 MG/2 ML VIAL IV SCH ×4 (06:11→23:38)
[2017-05-26 06:12] LABS: INR 4.5 (<1.2)
[2017-05-26] MEDS: PANTOPRAZOLE 40 MG TABLET PO SCH (06:12)
[2017-05-26 06:24] LABS: ALT 57 U/L (9-52); AST 60 U/L (14-36); Alkaline Phosphatase 102 U/L (38-126); Anion Gap 11 mmol/L; Blood Urea Nitrogen 18 mg/dL (7-17); Calcium 9.2 mg/dL (8.4-10.2); Carbon Dioxide 26 mmol/L (22-30); Chloride 101 mmol/L (98-107); Glucose 134 mg/dL (74-99); Non-African American GFR(MDRD) >60 (>60 ml/min/1.73 sqM); Phosphorous 3.5 mg/dL (2.5-4.5); Potassium 3.9 mmol/L (3.5-5.1); Sodium 138 mmol/L (137-145); Total Bilirubin 1.2 mg/dL (0.2-1.3); Total Protein 6.3 g/dL (6.3-8.2)
[2017-05-26] MEDS: PIPERACILLIN-TAZOBACTAM 3.375 GM in DEXTROSE/WATER 1 50ML.BAG IVPB SCH ×3 (08:10→23:39)
[2017-05-26] MEDS: ESCITALOPRAM 10 MG TAB PO SCH (08:11)
[2017-05-26] MEDS: LORATADINE 10 MG TAB PO SCH (08:11)
[2017-05-26] MEDS: AZITHROMYCIN 500 MG TAB PO SCH (08:11)
[2017-05-26] MEDS: DIGOXIN 125 MCG TAB PO SCH (08:11)
[2017-05-26] MEDS: NICOTINE 14MG/24HR PATCH TRANSDERM SCH (08:40)
[2017-05-26] MEDS: IPRATROPIUM-ALBUTEROL 3 ML NEB INHALATION SCH ×4 (08:41→19:40)
--- NOTE | 2017-05-26 09:15 | XR ---
EXAMINATION TYPE: XR chest 1V DATE OF EXAM: 05/26/2017 COMPARISON: Prior chest x-ray 05/25/2017 HISTORY: Pneumonia, COPD TECHNIQUE: Single frontal view of the chest is obtained. FINDINGS: The heart remains enlarged. Patient is rotated. No evident pneumothorax. Patchy basilar de nsity persists on the right. There are overlying cardiac leads. Pulmonary vascularity and trini are st able. IMPRESSION: Right lower lobe atelectasis versus pneumonia, correlate. Stable cardiomegaly. Follow-up recommended.
--- NOTE | 2017-05-26 10:05 | PN ---
PROGRESS NOTE DATE OF SERVICE: 05/25/2017 I am covering for Dr. Egan. This 61-year-old woman was admitted with COPD acute exacerbation. Also, had pneumonia. The patient is feeling slightly better. Patient is on broad spectrum IV antibiotics. No chest pain, no palpitation. PHYSICAL EXAM: Alert and oriented x3. Pulse is 98, blood pressure 1/48/100, temperature 96.8, pulse ox 98% on 2 L. HEENT: Conjunctivae normal. Oral mucosa moist. NECK: No jugular venous distention. No carotid bruit. No lymph node enlargement. CARDIOVASCULAR: S1/S2 normal RESPIRATORY: Diminished breath sounds especially at the bases. A few scattered rhonchi and crackles. ABDOMEN: Soft, nontender. LEGS: No swelling. NERVOUS SYSTEM: No focal deficits. LABS: INR is 5.2. Lactic acid still elevated. ASSESSMENT: 1. Chronic obstructive pulmonary disease acute exacerbation secondary to right-sided pneumonia, possibly gram-negative with sepsis, present on admission with failure of outpatient treatment. 2. Acute hypoxic respiratory failure status post BiPAP. 3. History of cerebrovascular accident, transient ischemic attack. 4. Coumadin coagulopathy. 5. Hypertension. 6. History back pain. 7. History of congestive heart failure. 8. History of cholecystectomy. 9. Continued ongoing nicotine dependence. RECOMMENDATION AND DISCUSSION: Recommend to continue current medication, continue to monitor, continue symptomatic treatment. Otherwise, at this time I would recommend continue with antibiotics, continue with the rest of the medications. I would also recommend 2.5 mg vitamin K once and continue to monitor. The patient is at high risk for coagulopathy. Otherwise, continue the rest of medications and Dr. Egan will follow. See orders for further details. MMODL / IJN: [id number] /
--- NOTE | 2017-05-26 10:11 | PN ---
PROGRESS NOTE DATE OF SERVICE: 05/25/2017. REASON FOR FOLLOWUP: Pneumonia. INTERVAL HISTORY: The patient is afebrile. Her breathing has slightly improved. She does have a cough, but bringing anything very minimal sputum and no hemoptysis. No chest pain. No abdominal pain or any diarrhea. EXAMINATION: Blood pressure 117/67 with a pulse of 62, temperature 96.4. She is 100% on 2L nasal cannula. General description is an elderly female lying in bed in no distress. RESPIRATORY SYSTEM: Unlabored breathing. Bilateral expiratory wheeze. HEART: S1, S2. Regular rate and rhythm. ABDOMEN: Soft. No tenderness. LAB: Hemoglobin 13.2, white count is down to 14.2. DIAGNOSTIC IMPRESSION AND PLAN: Patient with pneumonia with sputum culture showed a gram-negative. Antibiotic has been adjusted to Zosyn. That will be continued. Will discontinue Zithromax. Adjust antibiotics further based on the culture report. Continue supportive care. MMODL / IJN: [id number] /
--- NOTE | 2017-05-26 10:19 | P.PN ---
Subjective Patient resting comfortably in bed states some improvement in respiratory status patient has had consultation with Dr. Wiley and infectious disease Objective - Vital Signs Vital signs: Vital Signs Temp 98.1 F 05/26/17 08:00 Pulse 130 H 05/26/17 10:00 Resp 16 05/26/17 08:00 BP 107/70 05/26/17 08:00 Pulse Ox 91 L 05/26/17 10:00 Intake & Output 05/25/17 05/26/17 05/26/17 18:59 06:59 18:59 Intake Total 960 732 240 Output Total 2900 3875 Balance -1940 -3143 240 Weight 77.8 kg Intake: IV 160 Sodium Chloride 0.9% 1, 160 000 ml @ 20 mls/hr IV . Q24H [facility] Rx#:[id number] Intake, IV Titration 50 Amount Piperacillin-Tazobactam 3 50 .375 gm In Dextrose/Water 1 50ml.bag @ 12.5 mls/hr IVPB Q8HR [facility] Rx#: [id number] Oral 960 522 240 Output: Urine 2900 3875 Other: Voiding Method Indwelling Catheter Indwelling Catheter Indwelling Catheter # Bowel Movements 0 - Constitutional General appearance: Present: mild distress - EENT Eyes: Present: PERRLA Ears: bilateral: normal - Neck Neck: Present: normal ROM - Respiratory Respiratory: bilateral: diminished, rhonchi - Cardiovascular Rhythm: irregularly irregular - Gastrointestinal General gastrointestinal: Present: soft - Integumentary Integumentary: Present: normal - Neurologic Neurologic: Present: CNII-XII intact - Musculoskeletal Musculoskeletal: Present: generalized weakness - Psychiatric Psychiatric: Present: A&O x's 3, appropriate affect, intact judgment & insight - Labs CBC & Chem 7: 05/26/17 05:21 05/26/17 05:21 Labs: Abnormal Lab Results - Last 24 Hours (Table) 05/25/17 05/25/17 05/25/17 Range/Units 11:39 17:00 20:25 WBC (3.8-10.6) k/uL Neutrophils # (1.3-7.7) k/uL Lymphocytes # (1.0-4.8) k/uL PT (9.0-12.0) sec INR (<1.2) BUN (7-17) mg/dL Glucose (74-99) mg/dL POC Glucose (mg/dL) 152 H 205 H 122 H (75-99) mg/dL AST (14-36) U/L ALT (9-52) U/L 05/26/17 05/26/17 05/26/17 Range/Units 05:21 05:21 05:21 WBC 10.8 H (3.8-10.6) k/uL Neutrophils # 9.5 H (1.3-7.7) k/uL Lymphocytes # 0.7 L (1.0-4.8) k/uL PT 44.0 H (9.0-12.0) sec INR 4.5 H (<1.2) BUN 18 H (7-17) mg/dL Glucose 134 H (74-99) mg/dL POC Glucose (mg/dL) (75-99) mg/dL AST 60 H (14-36) U/L ALT 57 H (9-52) U/L 05/26/17 Range/Units 05:39 WBC (3.8-10.6) k/uL Neutrophils # (1.3-7.7) k/uL Lymphocytes # (1.0-4.8) k/uL PT (9.0-12.0) sec INR (<1.2) BUN (7-17) mg/dL Glucose (74-99) mg/dL POC Glucose (mg/dL) 149 H (75-99) mg/dL AST (14-36) U/L ALT (9-52) U/L Microbiology - Last 24 Hours (Table) 05/24/17 04:25 Gram Stain - Final Sputum Sputum Culture - Final Barbara albicans Pseudomonas fluorescens/putida 05/22/17 16:51 Blood Culture - Preliminary Blood No Growth after 72 hours - Imaging and Cardiology Chest x-ray: report reviewed Assessment and Plan Plan: Assessment Acute on chronic COPD with pneumonia with sepsis with hypoxic respiratory failure post BiPAP History of a CVA/TIA with left-sided weakness Hypertension history of back surgery lumbar opioid dependence History of congestive heart failure diastolic dysfunction acute on chronic pulmonary hypertension Chronic atrial fibrillation mitral valve stenosis Plan Continue consultation with pulmonology and infectious disease Patient on Rocephin and Zithromax and steroids
[2017-05-26 11:49] LABS: Glucose,Whole Blood 147 mg/dL (75-99)
--- NOTE | 2017-05-26 13:43 | P.PN ---
Subjective Principal diagnosis: Acute exacerbation of COPD and right lung pneumonia A 61-year-old female patient, previous history of mitral valve stenosis and chronic atrial fibrillation and COPD, presented to the hospital because of increased shortness of breath, cough and chest congestion. No reported fever or chills. She started off with some sinus infection for which she was given antibiotics on outpatient basis through her primary care physician. Subsequently she started having increased dyspnea. No pleurisy. No hemoptysis. Denied having any fever or chills. Denied having any chest pain or back pain or shoulder pain. Her chest x-ray shows right upper lobe and the right infrahilar pulmonary infiltrate. The patient was placed on a BiPAP initially and she got moved to the intensive care unit. This morning the BiPAP is off and she is currently on oxygen at 2 L and pulse ox around 98%. Hemodynamically stable. No nausea. No vomiting. No change in mental status. No other complaints otherwise. She remains in atrial fibrillation with a controlled rate. Her PT/INR is therapeutic for now. On 05/24/2017, the patient is being seen in the follow-up. The patient is still somewhat short of breath and bronchospastic and wheezy secondary to COPD exacerbation. She also has a right lung pneumonia and follow-up chest x-ray from today still showing a right mid/basilar pulmonary infiltrate and small bilateral pleural effusion is again demonstrated. He also has chronic parenchymal change with some background cardiomegaly and pulmonary vessel congestion. As mentioned earlier the patient suffers from chronic microvascular noted and she is feeling chronic atrial fibrillation. Her white cell count came up to 21,000. INR is therapeutic at 3.4. The patient is on broad-spectrum antibiotics and she is receiving Rocephin and Zithromax. On 05/25/2017 I'm seeing this patient in follow-up. She is doing slightly better compared to yesterday. The chest x-ray shows improvement in the aeration of the right lung and resolution of the right midlung pulmonary infiltrate. There is however still some pulmonary vessel congestion. The patient will be given another dose of IV Lasix. She currently has a Owusu catheter in place. She remains in atrial fibrillation. PT/INR is subtherapeutic. The Coumadin is currently on hold. She remains on broad- spectrum antibiotics and she still covered with a combination of Zosyn and Zithromax. She is also on DuoNeb nebulized treatments around the clock and she is also on IV Solu-Medrol. Her white cell count is dropping down to 14.2. INR is at 5.2. On 05/26/2017, I'm seeing this patient on follow-up. She is doing a bit better, she is gradually improving, but not quite ready for discharge at this point. Chest x-ray is also showing some improvement. Clinically she is about 40% better. Continues to have intermittent cough and wheezing. No fever no chills no hemoptysis and no chest pain. CBC is relatively unremarkable, basic metabolic profile is relatively normal. Chest x-ray continues to show some opacity in the right lower lobe suspicious for pneumonia, doubt atelectasis. Objective - Vital Signs Vital signs: Vital Signs Temp 97.2 F L 05/26/17 11:57 Pulse 94 05/26/17 12:44 Resp 20 05/26/17 11:57 BP 133/73 05/26/17 11:57 Pulse Ox 97 05/26/17 11:57 Intake & Output 05/25/17 05/26/17 05/26/17 18:59 06:59 18:59 Intake Total 960 732 690 Output Total 2900 3875 Balance -1940 -0984 690 Weight 77.8 kg Intake: IV 160 160 Sodium Chloride 0.9% 1, 160 160 000 ml @ 20 mls/hr IV . Q24H [facility] Rx#:[id number] Intake, IV Titration 50 50 Amount Piperacillin-Tazobactam 3 50 50 .375 gm In Dextrose/Water 1 50ml.bag @ 12.5 mls/hr IVPB Q8HR [facility] Rx#: [id number] Oral 960 522 480 Output: Urine 2900 3875 Other: Voiding Method Indwelling Catheter Indwelling Catheter Indwelling Catheter # Bowel Movements 0 - Exam Physical Exam: Revealed a 61-year-old female in no distress. HEENT:[Neck is supple.] [No neck masses.] [No thyromegaly.] [No JVD.] Chest: [Crackles and rhonchi and wheezes noted bilaterally more so on the right side.] Cardiac Exam: Irregular irregular rhythm [Normal S1 and S2, no S3 gallop, no murmur.] Abdomen: [Soft, nontender, no megaly, no rebound, no guarding, normal bowel sounds.] Extremities: [No clubbing, no edema, no cyanosis.] Neurological Exam: [No focal neurologic deficit.] - Labs CBC & Chem 7: 05/26/17 05:21 05/26/17 05:21 Labs: Abnormal Lab Results - Last 24 Hours (Table) 05/25/17 05/25/17 05/26/17 Range/Units 17:00 20:25 05:21 WBC 10.8 H (3.8-10.6) k/uL Neutrophils # 9.5 H (1.3-7.7) k/uL Lymphocytes # 0.7 L (1.0-4.8) k/uL PT (9.0-12.0) sec INR (<1.2) BUN (7-17) mg/dL Glucose (74-99) mg/dL POC Glucose (mg/dL) 205 H 122 H (75-99) mg/dL AST (14-36) U/L ALT (9-52) U/L 05/26/17 05/26/17 05/26/17 Range/Units 05:21 05:21 05:39 WBC (3.8-10.6) k/uL Neutrophils # (1.3-7.7) k/uL Lymphocytes # (1.0-4.8) k/uL PT 44.0 H (9.0-12.0) sec INR 4.5 H (<1.2) BUN 18 H (7-17) mg/dL Glucose 134 H (74-99) mg/dL POC Glucose (mg/dL) 149 H (75-99) mg/dL AST 60 H (14-36) U/L ALT 57 H (9-52) U/L 05/26/17 Range/Units 11:46 WBC (3.8-10.6) k/uL Neutrophils # (1.3-7.7) k/uL Lymphocytes # (1.0-4.8) k/uL PT (9.0-12.0) sec INR (<1.2) BUN (7-17) mg/dL Glucose (74-99) mg/dL POC Glucose (mg/dL) 147 H (75-99) mg/dL AST (14-36) U/L ALT (9-52) U/L Microbiology - Last 24 Hours (Table) 05/24/17 04:25 Gram Stain - Final Sputum Sputum Culture - Final Barbara albicans Pseudomonas fluorescens/putida 05/22/17 16:51 Blood Culture - Preliminary Blood No Growth after 72 hours Assessment and Plan Plan: 1 acute COPD exacerbation with secondary shortness of breath, improving slowly 2 acute right lung pneumonia with patchy infiltration involving the right midlung of the right lower lobe infrahilar area, and today's chest x-ray shows improvement of the aeration of the right lung and there is some residual pulmonary vascular congestion/CHF picture on today's chest x-ray. The patient is being diuresis with IV Lasix. Pneumonia is most likely community-acquired in nature. Possibly gram-negative pneumonia considering her underlying COPD. 3 chronic atrial fibrillation, rate controlled and the patient is fully anticoagulated, in fact the PT/INR is supratherapeutic 4 chronic mitral stenosis 5 history of CVA and multiple TIAs with some residual left-sided weakness 6 smoker 7 history of ASD closure 8 lactic acidosis improving Recommendation: Continue present treatment plan, antibiotics, bronchodilators, steroids, diuretics, Coumadin, will possibly clear for discharge in the next 24 or 48 hours. Time with Patient: Less than 30
[2017-05-26 16:56] LABS: Glucose,Whole Blood 127 mg/dL (75-99)
[2017-05-26 21:07] LABS: Glucose,Whole Blood 177 mg/dL (75-99)
--- NOTE | 2017-05-26 22:58 | PN ---
PROGRESS NOTE DATE OF SERVICE: 05/26/2017. REASON FOR FOLLOWUP: Pneumonia. INTERVAL HISTORY: The patient is afebrile. He is still complaining of shortness of breath. He did have a cough, bringing up some sputum. No hemoptysis and no chest pain. No abdominal pain. No diarrhea. EXAMINATION: Blood pressure is 124/80 with a pulse of 100, temperature 98.2, she is 96% on 2 L nasal cannula. General description is a middle aged female sitting up in bed, in no distress. RESPIRATORY SYSTEM: Unlabored breathing. Coarse breath sounds bilaterally. Occasional wheeze. Heart is S1, S2. Regular rate and rhythm. Abdomen soft, no tenderness. LABORATORY DATA: Hemoglobin 13.5, white count 10.8 with a BUN of 18, creatinine 0.90. Sputum with Barbara and Pseudomonas fluorescens. DIAGNOSTIC IMPRESSION AND PLAN: Patient admitted to the hospital with pneumonia sputum showing Barbara and pseudomonas fluorescens more likely contamination, repeat sputum cultures was ordered. Keep the patient on Zosyn that was started yesterday. Continue supportive care. MMODL / IJN: [id number] /
[2017-05-26] MEDS: SODIUM CHLORIDE 0.9% 1,000 ML IV SCH (23:39)
[2017-05-26] MEDS: TEMAZEPAM 30 MG CAP PO SCH (23:39)
[2017-05-27] MEDS: SENNOSIDES 8.6 MG TAB PO PRN ×3 (03:56→21:05)
[2017-05-27] MEDS: guaiFENesin SYRUP 100MG/5ML 200 MG/10 ML CUP PO PRN ×3 (03:56→21:04)
[2017-05-27] MEDS: oxyCODONE-APAP 10-325MG 1 EACH TAB PO PRN ×5 (03:56→21:04)
[2017-05-27 06:21] LABS: Glucose,Whole Blood 139 mg/dL (75-99)
[2017-05-27 06:22] LABS: Basophils % (A) 0 %; CHCM 34.1; Eosinophils % (A) 0 %; HCT 40.1 % (34.0-46.0); HGB 13.6 gm/dL (11.4-16.0); Luc % (Auto) 1; Lymphocytes # (A) 0.7 k/uL (1.0-4.8); Lymphocytes % (A) 8 %; MCH 31.9 pg (25.0-35.0); MCHC 33.8 g/dL (31.0-37.0); MCV 94.4 fL (80.0-100.0); Mean Platelet Volume 8.8; Monocytes # (A) 0.4 k/uL (0-1.0); Monocytes % (A) 4 %; Neutrophils # (A) 8.2 k/uL (1.3-7.7); Neutrophils % (A) 87 %; RBC 4.25 m/uL (3.80-5.40); RDW 14.8 % (11.5-15.5); WBC 9.5 k/uL (3.8-10.6); WBC (Perox) 9.45
[2017-05-27 06:29] LABS: ALT 70 U/L (9-52); AST 54 U/L (14-36); Alkaline Phosphatase 91 U/L (38-126); Anion Gap 12 mmol/L; Blood Urea Nitrogen 19 mg/dL (7-17); Calcium 9.1 mg/dL (8.4-10.2); Carbon Dioxide 25 mmol/L (22-30); Chloride 102 mmol/L (98-107); Glucose 154 mg/dL (74-99); Magnesium 2.2 mg/dL (1.6-2.3); Non-African American GFR(MDRD) >60 (>60 ml/min/1.73 sqM); Phosphorous 3.7 mg/dL (2.5-4.5); Potassium 4.1 mmol/L (3.5-5.1); Sodium 139 mmol/L (137-145); Total Protein 6.4 g/dL (6.3-8.2)
[2017-05-27] MEDS: PANTOPRAZOLE 40 MG TABLET PO SCH (06:30)
[2017-05-27] MEDS: ALPRAZolam 0.25 MG TAB PO PRN ×3 (06:30→23:59)
[2017-05-27] MEDS: INSULIN LISPRO (humaLOG) 300 UNIT/3 ML VIAL SQ SCH ×4 (06:30→22:35)
[2017-05-27] MEDS: methylPREDNISolone SOD SUCCI 125 MG/2 ML VIAL IV SCH ×4 (06:30→23:59)
[2017-05-27 06:34] LABS: INR 1.8 (<1.2); Prothrombin Time 17.7 sec (9.0-12.0)
--- NOTE | 2017-05-27 07:41 | XR ---
EXAMINATION TYPE: XR chest 1V DATE OF EXAM: 05/27/2017 COMPARISON: 05/26/2017 INDICATION: Pneumonia TECHNIQUE: Single frontal view of the chest is obtained. FINDINGS: The heart size is mildly prominent. The pulmonary vasculature is slightly prominent. Mild infiltrate is at the right base. Mild resolving pneumonia or atelectasis could be considered. IMPRESSION: 1. Resolving right lower lobe pneumonia. 2. Cardiomegaly with prominent pulmonary vascular markings. Clinical consideration for volume overloa d or developing congestive heart failure is recommended
[2017-05-27] MEDS: IPRATROPIUM-ALBUTEROL 3 ML NEB INHALATION SCH ×4 (08:18→20:33)
--- NOTE | 2017-05-27 08:35 | P.CRDCN ---
History of Present Illness Consult date: 05/27/17 Consult reason: atrial fibrillation History of present illness: 61-year-old lady with history of rheumatic heart disease with mitral stenosis and chronic atrial fibrillation is admitted to hospital with possible pneumonia. She developed worsening shortness of breath and is admitted to hospital because of failed outpatient therapy. Cardiology is consulted because of atrial fibrillation with rapid ventricular rate. At the time of my evaluation this morning she appears comfortable at rest. She has had an episode of fluid overload yesterday when she went into congestive heart failure probably acute diastolic heart failure secondary to fluid overload and underlying valvular heart disease and atrial fibrillation. She was treated with IV diuretics with resolution of her symptoms. Patient was on oral Lasix at home which was not resumed on this admission. She is on Coumadin INR was elevated on admission this morning it is 1.8 and I will resume Coumadin. I'm going to adjust her medications to better control her heart rate. I will review her outpatient records. Patient had a JACLYN and cardiac catheterization and is awaiting mitral valve surgery. Review of Systems Constitutional: Denies chills. Denies fever. Eyes: Denies blurred vision. Denies pain. Ears, nose, mouth and throat: Denies headache. Denies sore throat. Cardiovascular: Denies chest pain. shortness of breath. Respiratory: Denies cough.#shortness of breath Gastrointestinal: Denies abdominal pain. Denies diarrhea. Denies nausea. Denies vomiting. Musculoskeletal: Denies myalgias. Integumentary: Denies pruritus. Denies rash. Neurological: Denies numbness. Denies weakness. Psychiatric: Denies anxiety. Denies depression. Endocrine: Denies fatigue. Denies weight change. Genitourinary: Denies burning, hematuria, frequency of urination. Hematological: No anemia or excess bleeding. Past Medical History Past Medical History: Heart Failure, CVA/TIA, Hypertension Additional Past Medical History / Comment(s): COPD, chronic atrial fibrillation , chronic back pain, CVA/multiple TIA, and issues weakness and shuffling of bilateral feet due to previous stroke, CHF, valvular heart disease-possibly Mitral valve stenosis post valvuloplasty (2012), ASD closure, depression, previous pneumonias 2011 and 2016 History of Any Multi-Drug Resistant Organisms: None Reported Past Surgical History: Cholecystectomy Additional Past Surgical History / Comment(s): ankle surgery (right ankle), Bilateral hand surgery- Carap Tunnel. D'C for miscarriage. Past Anesthesia/Blood Transfusion Reactions: No Reported Reaction Past Psychological History: No Psychological Hx Reported Smoking Status: Current every day smoker Past Alcohol Use History: None Reported Past Drug Use History: None Reported - Past Family History Mother Family Medical History: No Reported History Father Additional Family Medical History / Comment(s): heart failure, from heart attack at 74 Medications and Allergies Home Medications Medication Instructions Recorded Confirmed Type Digoxin [Lanoxin] 125 mcg PO DAILY 05/22/17 05/22/17 History Escitalopram [Lexapro] 10 mg PO DAILY 05/22/17 05/22/17 History Furosemide [Lasix] 40 mg PO BID 05/22/17 05/22/17 History Loratadine [Claritin] 10 mg PO DAILY 05/22/17 05/22/17 History Temazepam [Restoril] 30 mg PO HS 05/22/17 05/22/17 History Warfarin [Coumadin] 2 mg PO DAILY 05/22/17 05/22/17 History oxyCODONE-APAP 10-325MG [Percocet 1 tab PO Q4H PRN 05/22/17 05/22/17 History 10-325 mg] Allergies Allergy/AdvReac Type Severity Reaction Status Date / Time ciprofloxacin [From Cipro] Allergy Rash/Hives Verified 05/22/17 16:28 Sulfa (Sulfonamide Allergy Rash/Hives Verified 05/22/17 16:28 Antibiotics) Physical Exam Vitals: Vital Signs Temp Pulse Pulse Resp BP Pulse Ox 05/27/17 08:18 94 18 05/27/17 04:00 96.4 F L 86 18 112/80 96 05/26/17 23:30 96.5 F L 104 H 18 141/85 95 05/26/17 20:50 97.0 F L 98 18 142/84 97 05/26/17 19:57 98 05/26/17 19:41 98 05/26/17 16:00 100 20 05/26/17 15:59 98.2 F 100 20 124/80 96 05/26/17 12:44 94 05/26/17 12:30 96 05/26/17 11:57 97.2 F L 93 20 133/73 97 05/26/17 10:00 130 H 91 L 05/26/17 08:51 92 05/26/17 08:45 80 97 Intake and Output 05/26/17 05/27/17 05/27/17 22:59 06:59 14:59 Intake Total 222 160 240 Output Total 1700 2600 Balance -1478 -2440 240 Intake: IV 160 Sodium Chloride 0.9% 1, 160 000 ml @ 20 mls/hr IV . Q24H [facility] Rx#:[id number] Oral 222 240 Output: Urine 1700 2600 Other: Voiding Method Indwelling Catheter Indwelling Catheter Weight 73.1 kg General: The patient is awake and alert, in no distress, and does not appear acutely ill. Skin: Skin is warm and dry and no rashes or lesions are noted. Eye: Pupils are equal, round and reactive to light, extra-ocular movements are intact; there is normal conjunctiva bilaterally. Ears, nose, mouth and throat: There are moist mucous membranes and no oral lesions. Neck: The neck is supple, there is no tenderness or JVD. Cardiovascular: [irregular][ diastolic murmur at the apex systolic murmur at the left lower sternal border.] Respiratory: Lungs are clear to auscultation, respirations are non-labored, breath sounds are equal. Gastrointestinal: Soft, non-distended, non-tender abdomen without masses or organomegaly noted. There is no rebound or guarding present. Bowel sounds are unremarkable. Back: There is no tenderness to palpation in the midline. There is no obvious deformity. Musculoskeletal: Normal ROM, no tenderness, There is no pedal edema. There is no calf tenderness or swelling. Extremities:[ No edema.] Vascular: [Femoral pulse is normal.][ Posterior tibial pulses are normal .][ Dorsalis pedis is palpable.] Neurological: CN II-XII intact. There are no obvious motor or sensory deficits. Speech is normal. Psychiatric: Cooperative, appropriate mood & affect, normal judgment. Results 05/27/17 05:33 05/27/17 05:33 Cardiac Enzymes 05/27/17 Range/Units 05:33 AST 54 H (14-36) U/L Coagulation 05/27/17 Range/Units 05:33 PT 17.7 H (9.0-12.0) sec CBC 05/27/17 Range/Units 05:33 WBC 9.5 (3.8-10.6) k/uL RBC 4.25 (3.80-5.40) m/uL Hgb 13.6 (11.4-16.0) gm/dL Hct 40.1 (34.0-46.0) % Plt Count 206 (150-450) k/uL Comprehensive Metabolic Panel 05/27/17 Range/Units 05:33 Sodium 139 (137-145) mmol/L Potassium 4.1 (3.5-5.1) mmol/L Chloride 102 (98-107) mmol/L Carbon Dioxide 25 (22-30) mmol/L BUN 19 H (7-17) mg/dL Creatinine 0.88 (0.52-1.04) mg/dL Glucose 154 H (74-99) mg/dL Calcium 9.1 (8.4-10.2) mg/dL AST 54 H (14-36) U/L ALT 70 H (9-52) U/L Alkaline Phosphatase 91 (38-126) U/L Total Protein 6.4 (6.3-8.2) g/dL Albumin 3.9 (3.5-5.0) g/dL Current Medications Generic Name Dose Route Start Last Admin Trade Name Freq PRN Reason Stop Dose Admin Albuterol/Ipratropium 3 ml 05/24/17 08:00 05/27/17 08:18 Duoneb 0.5 Mg-3 Mg/3 Ml Soln INHALATION 3 ml RT-QID JUAN A Administration Albuterol/Ipratropium 3 ml 05/23/17 22:35 05/26/17 00:26 Duoneb 0.5 Mg-3 Mg/3 Ml Soln INHALATION 3 ml RT-Q2H PRN Administration Shortness Of Breath Or Wheezing Alprazolam 0.25 mg 05/23/17 00:32 05/27/17 06:30 Xanax PO 0.25 mg TID PRN Administration Anxiety Azithromycin 500 mg 05/25/17 09:00 05/26/17 08:11 Zithromax PO 500 mg DAILY JUAN A Administration Digoxin 125 mcg 05/23/17 09:00 05/26/17 08:11 Lanoxin PO 125 mcg DAILY JUAN A Administration Escitalopram Oxalate 10 mg 05/23/17 09:00 05/26/17 08:11 Lexapro PO 10 mg DAILY JUAN A Administration Furosemide 40 mg 05/27/17 09:00 Lasix PO DAILY JUAN A Guaifenesin 200 mg 05/23/17 15:25 05/27/17 03:56 Robitussin PO 200 mg Q6H PRN Administration Cough Sodium Chloride 1,000 mls @ 20 mls/hr 05/22/17 19:15 05/26/17 23:39 Saline 0.9% IV 20 mls/hr .Q24H JUAN A Administration Piperacillin/Tazobactam/ 50 mls @ 12.5 mls/hr 05/24/17 16:00 05/26/17 23:39 Dextrose 3.375 gm/ IV Solution IVPB 12.5 mls/hr Q8HR JUAN A Administration Insulin Human Lispro 0 unit 05/23/17 07:30 05/27/17 06:30 Humalog SQ 1 unit ACHS JUAN A Administration Protocol Loratadine 10 mg 05/23/17 09:00 05/26/17 08:11 Claritin PO 10 mg DAILY JUAN A Administration Methylprednisolone Sodium Succinate 60 mg 05/23/17 00:00 05/27/17 06:30 Solu-Medrol IV 60 mg Q6HR JUAN A Administration Metoprolol Succinate 25 mg 05/27/17 09:00 Toprol Xl PO DAILY [facility] Miscellaneous Information 1 each 05/22/17 19:06 Pneumonia Protocol Utilized PO ONCE PRN Per Protocol Naloxone HCl 0.2 mg 05/23/17 04:02 Narcan IV Q2M PRN Opioid Reversal Nicotine 1 patch 05/23/17 09:00 05/26/17 08:40 Habitrol 14mg/24hr Patch TRANSDERM 1 patch DAILY JUAN A Administration Oxycodone/Acetaminophen 1 each 05/22/17 19:15 05/27/17 03:56 Percocet 10-325 PO 1 each Q4H PRN Administration Pain Pantoprazole Sodium 40 mg 05/23/17 07:30 05/27/17 06:30 Protonix PO 40 mg AC-[id number] JUAN A Administration Senna 8.6 mg 05/25/17 12:38 05/27/17 03:56 Senokot PO 8.6 mg BID PRN Administration Constipation Temazepam 30 mg 05/22/17 21:00 05/26/17 23:39 Restoril PO 30 mg HS JUAN A Administration Warfarin Sodium 2.5 mg 05/27/17 18:00 Coumadin PO 05/27/17 18:01 ONCE@1800 ONE Intake and Output 05/26/17 05/27/17 05/27/17 22:59 06:59 14:59 Intake Total 222 160 240 Output Total 1700 2600 Balance -1478 -2440 240 Intake: IV 160 Sodium Chloride 0.9% 1, 160 000 ml @ 20 mls/hr IV . Q24H [facility] Rx#:[id number] Oral 222 240 Output: Urine 1700 2600 Other: Voiding Method Indwelling Catheter Indwelling Catheter Weight 73.1 kg 05/27/17 05:33 05/27/17 05:33 EKG Interpretations (text) atrial fibrillation with nonspecific ST-T wave changes Assessment and Plan Plan: chronic atrial fibrillation with poorly controlled ventricular rate Rheumatic heart disease with mitral stenosis Acute exacerbation of chronic diastolic heart failure Pneumonia I'm going to review outpatient records. Start the patient on a beta tay for better rate control. Resume Coumadin. Resume by mouth Lasix.
[2017-05-27] MEDS: DIGOXIN 125 MCG TAB PO SCH (08:52)
[2017-05-27] MEDS: ESCITALOPRAM 10 MG TAB PO SCH (08:52)
[2017-05-27] MEDS: AZITHROMYCIN 500 MG TAB PO SCH (08:52)
[2017-05-27] MEDS: NICOTINE 14MG/24HR PATCH TRANSDERM SCH (08:52)
[2017-05-27] MEDS: LORATADINE 10 MG TAB PO SCH (08:53)
[2017-05-27] MEDS: FUROSEMIDE 40 MG TAB PO SCH (08:56)
[2017-05-27] MEDS: METOPROLOL SUCCINATE (ER) 25 MG TAB.ER.24H PO SCH (08:56)
[2017-05-27] MEDS: PIPERACILLIN-TAZOBACTAM 3.375 GM in DEXTROSE/WATER 1 50ML.BAG IVPB SCH ×3 (09:30→23:59)
--- NOTE | 2017-05-27 10:52 | P.PN ---
Subjective Principal diagnosis: Patient sitting at side of bed. Had cardiology consultation regarding Carly prince with RVR and heart failure. Beta tay and Lasix adjusted Objective - Vital Signs Vital signs: Vital Signs Temp 98 F 05/27/17 08:45 Pulse 83 05/27/17 08:45 Resp 16 05/27/17 08:45 BP 131/89 05/27/17 08:45 Pulse Ox 97 05/27/17 08:45 Intake & Output 05/26/17 05/27/17 05/27/17 18:59 06:59 18:59 Intake Total 912 160 240 Output Total 1700 2600 Balance -788 -2440 240 Weight 73.1 kg Intake: IV 160 160 Sodium Chloride 0.9% 1, 160 160 000 ml @ 20 mls/hr IV . Q24H [facility] Rx#:[id number] Intake, IV Titration 50 Amount Piperacillin-Tazobactam 3 50 .375 gm In Dextrose/Water 1 50ml.bag @ 12.5 mls/hr IVPB Q8HR JUAN A Rx#: [id number] Oral 702 240 Output: Urine 1700 2600 Other: Voiding Method Indwelling Catheter Indwelling Catheter Indwelling Catheter - Constitutional General appearance: Present: mild distress - EENT Eyes: Present: PERRLA Ears: bilateral: normal - Neck Neck: Present: normal ROM - Respiratory Respiratory: bilateral: diminished - Cardiovascular Rhythm: irregularly irregular - Peripheral edema ankle Peripheral Edema: bilateral: 1+ - Gastrointestinal General gastrointestinal: Present: soft - Integumentary Integumentary: Present: normal - Neurologic Neurologic: Present: CNII-XII intact - Musculoskeletal Musculoskeletal: Present: generalized weakness - Psychiatric Psychiatric: Present: A&O x's 3, appropriate affect, intact judgment & insight - Labs CBC & Chem 7: 05/27/17 05:33 05/27/17 05:33 Labs: Abnormal Lab Results - Last 24 Hours (Table) 05/26/17 05/26/17 05/26/17 Range/Units 11:46 16:47 21:06 Neutrophils # (1.3-7.7) k/uL Lymphocytes # (1.0-4.8) k/uL PT (9.0-12.0) sec INR (<1.2) BUN (7-17) mg/dL Glucose (74-99) mg/dL POC Glucose (mg/dL) 147 H 127 H 177 H (75-99) mg/dL AST (14-36) U/L ALT (9-52) U/L 05/27/17 05/27/17 05/27/17 Range/Units 05:33 05:33 05:33 Neutrophils # 8.2 H (1.3-7.7) k/uL Lymphocytes # 0.7 L (1.0-4.8) k/uL PT 17.7 H (9.0-12.0) sec INR 1.8 H (<1.2) BUN 19 H (7-17) mg/dL Glucose 154 H (74-99) mg/dL POC Glucose (mg/dL) (75-99) mg/dL AST 54 H (14-36) U/L ALT 70 H (9-52) U/L 05/27/17 Range/Units 06:19 Neutrophils # (1.3-7.7) k/uL Lymphocytes # (1.0-4.8) k/uL PT (9.0-12.0) sec INR (<1.2) BUN (7-17) mg/dL Glucose (74-99) mg/dL POC Glucose (mg/dL) 139 H (75-99) mg/dL AST (14-36) U/L ALT (9-52) U/L Microbiology - Last 24 Hours (Table) 05/22/17 16:51 Blood Culture - Preliminary Blood No Growth after 96 hours 05/24/17 04:25 Gram Stain - Final Sputum Sputum Culture - Final Barbara albicans Pseudomonas fluorescens/putida - Imaging and Cardiology Chest x-ray: report reviewed Assessment and Plan Plan: Assessment Chronic obstructive pulmonary disease with acute exacerbation secondary to pneumonia with sepsis acute hypoxic respiratory failure post BiPAP History of CVA/TIA with left-sided weakness Hypertension History of back surgery opioid dependence Congestive heart failure diastolic dysfunction pulmonary hypertension acute on chronic Continued nicotine dependence Atrial flutter with RVR mitral valve stenosis Plan Continue consultation with pulmonology infectious disease and cardiology Patient requesting physical therapy for weakness
--- NOTE | 2017-05-27 11:03 | P.PN ---
Subjective Principal diagnosis: Acute exacerbation of COPD and right lung pneumonia A 61-year-old female patient, previous history of mitral valve stenosis and chronic atrial fibrillation and COPD, presented to the hospital because of increased shortness of breath, cough and chest congestion. No reported fever or chills. She started off with some sinus infection for which she was given antibiotics on outpatient basis through her primary care physician. Subsequently she started having increased dyspnea. No pleurisy. No hemoptysis. Denied having any fever or chills. Denied having any chest pain or back pain or shoulder pain. Her chest x-ray shows right upper lobe and the right infrahilar pulmonary infiltrate. The patient was placed on a BiPAP initially and she got moved to the intensive care unit. This morning the BiPAP is off and she is currently on oxygen at 2 L and pulse ox around 98%. Hemodynamically stable. No nausea. No vomiting. No change in mental status. No other complaints otherwise. She remains in atrial fibrillation with a controlled rate. Her PT/INR is therapeutic for now. On 05/24/2017, the patient is being seen in the follow-up. The patient is still somewhat short of breath and bronchospastic and wheezy secondary to COPD exacerbation. She also has a right lung pneumonia and follow-up chest x-ray from today still showing a right mid/basilar pulmonary infiltrate and small bilateral pleural effusion is again demonstrated. He also has chronic parenchymal change with some background cardiomegaly and pulmonary vessel congestion. As mentioned earlier the patient suffers from chronic microvascular noted and she is feeling chronic atrial fibrillation. Her white cell count came up to 21,000. INR is therapeutic at 3.4. The patient is on broad-spectrum antibiotics and she is receiving Rocephin and Zithromax. On 05/25/2017 I'm seeing this patient in follow-up. She is doing slightly better compared to yesterday. The chest x-ray shows improvement in the aeration of the right lung and resolution of the right midlung pulmonary infiltrate. There is however still some pulmonary vessel congestion. The patient will be given another dose of IV Lasix. She currently has a Owusu catheter in place. She remains in atrial fibrillation. PT/INR is subtherapeutic. The Coumadin is currently on hold. She remains on broad- spectrum antibiotics and she still covered with a combination of Zosyn and Zithromax. She is also on DuoNeb nebulized treatments around the clock and she is also on IV Solu-Medrol. Her white cell count is dropping down to 14.2. INR is at 5.2. On 05/26/2017, I'm seeing this patient on follow-up. She is doing a bit better, she is gradually improving, but not quite ready for discharge at this point. Chest x-ray is also showing some improvement. Clinically she is about 40% better. Continues to have intermittent cough and wheezing. No fever no chills no hemoptysis and no chest pain. CBC is relatively unremarkable, basic metabolic profile is relatively normal. Chest x-ray continues to show some opacity in the right lower lobe suspicious for pneumonia, doubt atelectasis. Patient was reevaluated today on 05/27/2017, continues to have intermittent episodes of cough wheezing and shortness of breath. Cough is productive with whitish phlegm, no fever no chills no hemoptysis and no chest pain. CBC was relatively normal. INR is still subtherapeutic at 1.8. Basic metabolic profile is normal. Objective - Vital Signs Vital signs: Vital Signs Temp 98 F 05/27/17 08:45 Pulse 83 05/27/17 08:45 Resp 16 05/27/17 08:45 BP 131/89 05/27/17 08:45 Pulse Ox 97 05/27/17 08:45 Intake & Output 05/26/17 05/27/17 05/27/17 18:59 06:59 18:59 Intake Total 912 160 240 Output Total 1700 2600 Balance -788 -2440 240 Weight 73.1 kg Intake: IV 160 160 Sodium Chloride 0.9% 1, 160 160 000 ml @ 20 mls/hr IV . Q24H [facility] Rx#:[id number] Intake, IV Titration 50 Amount Piperacillin-Tazobactam 3 50 .375 gm In Dextrose/Water 1 50ml.bag @ 12.5 mls/hr IVPB Q8HR [facility] A Rx#: [id number] Oral 702 240 Output: Urine 1700 2600 Other: Voiding Method Indwelling Catheter Indwelling Catheter Indwelling Catheter - Exam Physical Exam: Revealed a 61-year-old female in no distress. HEENT:[Neck is supple.] [No neck masses.] [No thyromegaly.] [No JVD.] Chest: [Crackles and rhonchi and wheezes noted bilaterally more so on the right side.] Cardiac Exam: Irregular irregular rhythm [Normal S1 and S2, no S3 gallop, no murmur.] Abdomen: [Soft, nontender, no megaly, no rebound, no guarding, normal bowel sounds.] Extremities: [No clubbing, no edema, no cyanosis.] Neurological Exam: [No focal neurologic deficit.] - Labs CBC & Chem 7: 05/27/17 05:33 05/27/17 05:33 Labs: Abnormal Lab Results - Last 24 Hours (Table) 05/26/17 05/26/17 05/26/17 Range/Units 11:46 16:47 21:06 Neutrophils # (1.3-7.7) k/uL Lymphocytes # (1.0-4.8) k/uL PT (9.0-12.0) sec INR (<1.2) BUN (7-17) mg/dL Glucose (74-99) mg/dL POC Glucose (mg/dL) 147 H 127 H 177 H (75-99) mg/dL AST (14-36) U/L ALT (9-52) U/L 05/27/17 05/27/17 05/27/17 Range/Units 05:33 05:33 05:33 Neutrophils # 8.2 H (1.3-7.7) k/uL Lymphocytes # 0.7 L (1.0-4.8) k/uL PT 17.7 H (9.0-12.0) sec INR 1.8 H (<1.2) BUN 19 H (7-17) mg/dL Glucose 154 H (74-99) mg/dL POC Glucose (mg/dL) (75-99) mg/dL AST 54 H (14-36) U/L ALT 70 H (9-52) U/L 05/27/17 Range/Units 06:19 Neutrophils # (1.3-7.7) k/uL Lymphocytes # (1.0-4.8) k/uL PT (9.0-12.0) sec INR (<1.2) BUN (7-17) mg/dL Glucose (74-99) mg/dL POC Glucose (mg/dL) 139 H (75-99) mg/dL AST (14-36) U/L ALT (9-52) U/L Microbiology - Last 24 Hours (Table) 05/22/17 16:51 Blood Culture - Preliminary Blood No Growth after 96 hours 05/24/17 04:25 Gram Stain - Final Sputum Sputum Culture - Final Barbara albicans Pseudomonas fluorescens/putida Assessment and Plan Plan: 1 acute COPD exacerbation with secondary shortness of breath, improving slowly 2 acute right lung pneumonia with patchy infiltration involving the right midlung of the right lower lobe infrahilar area, improving. 3 chronic atrial fibrillation, rate controlled and the patient is fully anticoagulated, in fact the PT/INR is supratherapeutic 4 chronic mitral stenosis 5 history of CVA and multiple TIAs with some residual left-sided weakness 6 smoker 7 history of ASD closure 8 lactic acidosis improving Recommendation: Continue present treatment plan, antibiotics, bronchodilators, steroids, diuretics, Coumadin. Symbicort was added today. Patient will remain on Solu-Medrol, not ready for discharge planning at this point. Time with Patient: Less than 30
--- NOTE | 2017-05-27 11:33 | ECHOF ---
Referral Reason:sob MEASUREMENTS -------- HEIGHT: 167.6 cm WEIGHT: 73.0 kg BP: 112/80 RVIDd: 2.8 cm (< 3.3) IVSd: 0.9 cm (0.6 - 1.1) LVIDd: 4.9 cm (3.9 - 5.3) LVPWd: 1.1 cm (0.6 - 1.1) IVSs: 1.7 cm LVIDs: 2.9 cm LVPWs: 1.5 cm LA Diam: 5.4 cm (2.7 - 3.8) LAESV Index (A-L): 75.90 ml/m Ao Diam: 3.2 cm (2.0 - 3.7) AV Cusp: 2.1 cm (1.5 - 2.6) MV EXCURSION: 13.015 mm (> 18.000) MV EF SLOPE: 16 mm/s (70 - 150) EPSS: 0.3 cm AV maxP.91 mmHg AV meanP.19 mmHg RAP: 5.00 mmHg RVSP: 81.61 mmHg FINDINGS -------- This was a technically good study. The left ventricular size is normal. There is borderline concentric left ventricular hypertrophy. Overall left ventricular systolic function is low-normal with, an EF between 50 - 55 %. The right ventricle is normal in size. LA is severely dilated >40 ml/m2 The right atrium is normal in size. There is an interatrial closure device in place without evidence of shunt. There is mild aortic valve sclerosis. There is mild aortic regurgitation. The mitral valve leaflets are moderately thickened. Moderate mitral annular calcification present. Moderate mitral regurgitation is present. The peak and mean MV gradients are 38.13mmHg 17.15mmHg as measured by doppler. Severe mitral stenosis. Moderate to severe tricuspid regurgitation present. There is severe pulmonary hypertension. The right ventricular systolic pressure, as measured by Doppler, is 81.61mmHg. Trace/mild (physiologic) pulmonic regurgitation. The aortic root size is normal. CONCLUSIONS -------- 1. This was a technically good study. 2. There is mild aortic regurgitation. 3. The mitral valve leaflets are moderately thickened. 4. Moderate mitral annular calcification present. 5. Moderate mitral regurgitation is present. 6. The peak and mean MV gradients are 38.13mmHg 17.15mmHg as measured by doppler. 7. Severe mitral stenosis. 8. Moderate to severe tricuspid regurgitation present. 9. There is severe pulmonary hypertension. 10. The right ventricular systolic pressure, as measured by Doppler, is 81.61mmHg. 11. Trace/mild (physiologic) pulmonic regurgitation. 12. The left ventricular size is normal. 13. The aortic root size is normal. 14. There is borderline concentric left ventricular hypertrophy. 15. Overall left ventricular systolic function is low-normal with, an EF between 50 - 55 %. 16. The right ventricle is normal in size. 17. LA is severely dilated >40 ml/m2 18. The right atrium is normal in size. 19. There is an interatrial closure device in place without evidence of shunt. 20. There is mild aortic valve sclerosis. [employer]NAL OFFICER: Wilma Warner RDCS
[2017-05-27 12:14] LABS: Glucose,Whole Blood 155 mg/dL (75-99)
[2017-05-27 16:35] LABS: Glucose,Whole Blood 131 mg/dL (75-99)
[2017-05-27] MEDS ORDERED: WARFARIN 2.5 MG TAB PO ONE (18:00)
[2017-05-27] MEDS: SYMBICORT 160-4.5 MCG INHALER INHALATION SCH (20:33)
[2017-05-27 21:11] LABS: Glucose,Whole Blood 154 mg/dL (75-99)
[2017-05-27] MEDS ORDERED: WARFARIN 2 MG TAB PO SCH ×2 (22:00)
[2017-05-27] MEDS: TEMAZEPAM 30 MG CAP PO SCH (23:59)
[2017-05-28 06:06] LABS: Glucose,Whole Blood 132 mg/dL (75-99)
[2017-05-28] MEDS: methylPREDNISolone SOD SUCCI 125 MG/2 ML VIAL IV SCH ×4 (06:27→23:52)
[2017-05-28] MEDS: PANTOPRAZOLE 40 MG TABLET PO SCH (06:27)
[2017-05-28] MEDS: INSULIN LISPRO (humaLOG) 300 UNIT/3 ML VIAL SQ SCH ×4 (06:27→21:33)
[2017-05-28] MEDS: oxyCODONE-APAP 10-325MG 1 EACH TAB PO PRN ×4 (06:27→21:40)
[2017-05-28 06:46] LABS: Basophils % (A) 0 %; CHCM 34.2; Eosinophils % (A) 0 %; HDW 2.61; HGB 14.3 gm/dL (11.4-16.0); Luc # (Auto) 0.12; Luc % (Auto) 1; Lymphocytes # (A) 0.8 k/uL (1.0-4.8); Lymphocytes % (A) 7 %; MCH 31.2 pg (25.0-35.0); MCHC 33.2 g/dL (31.0-37.0); MCV 93.9 fL (80.0-100.0); Mean Platelet Volume 8.9; Monocytes # (A) 0.5 k/uL (0-1.0); Monocytes % (A) 5 %; Neutrophils # (A) 9.4 k/uL (1.3-7.7); Neutrophils % (A) 87 %; RBC 4.58 m/uL (3.80-5.40); RDW 14.8 % (11.5-15.5); WBC 10.8 k/uL (3.8-10.6); WBC (Perox) 10.79
[2017-05-28 06:58] LABS: Anion Gap 12 mmol/L; Blood Urea Nitrogen 26 mg/dL (7-17); Calcium 9.2 mg/dL (8.4-10.2); Carbon Dioxide 24 mmol/L (22-30); Chloride 100 mmol/L (98-107); Glucose 122 mg/dL (74-99); Magnesium 2.2 mg/dL (1.6-2.3); Non-African American GFR(MDRD) >60 (>60 ml/min/1.73 sqM); Phosphorous 4.4 mg/dL (2.5-4.5); Potassium 4.1 mmol/L (3.5-5.1); Sodium 136 mmol/L (137-145)
[2017-05-28] MEDS: SYMBICORT 160-4.5 MCG INHALER INHALATION SCH ×2 (07:14→21:10)
[2017-05-28] MEDS: IPRATROPIUM-ALBUTEROL 3 ML NEB INHALATION SCH ×4 (07:14→21:10)
--- NOTE | 2017-05-28 08:56 | PN ---
PROGRESS NOTE DATE OF SERVICE: 05/27/2017 REASON FOR FOLLOWUP: Pneumonia. INTERVAL HISTORY: The patient is afebrile. She is breathing slightly comfortably, continues to have some cough but bringing up less sputum. No chest pain. No abdominal pain. Repeat sputum was ordered, not done and no diarrhea. PHYSICAL EXAMINATION: Blood pressure is 130/73 with a pulse of 70, temperature 97.6. She is 95% on 2 L nasal cannula. General description is a middle-aged female up in the bed, in no distress. RESPIRATORY SYSTEM: Unlabored breathing with bilateral expiratory wheeze. HEART: S1, S2. Regular rate and rhythm. ABDOMEN: Soft, no tenderness. LABS: Hemoglobin is 13.6, white count of 9.5. BUN of 19, creatinine of 0.88. DIAGNOSTIC IMPRESSION AND PLAN: Patient with a right lower lobe pneumonia. Sputum with Barbara pseudomonas but likely contamination. Repeat sputum has been ordered as chest x-ray did show improvement. Continue the patient on Zosyn. Continue supportive care. MMODL / IJN: [id number] /
[2017-05-28] MEDS: PIPERACILLIN-TAZOBACTAM 3.375 GM in DEXTROSE/WATER 1 50ML.BAG IVPB SCH ×3 (09:09→23:51)
[2017-05-28] MEDS: ESCITALOPRAM 10 MG TAB PO SCH (09:09)
[2017-05-28] MEDS: LORATADINE 10 MG TAB PO SCH (09:09)
[2017-05-28] MEDS: NICOTINE 14MG/24HR PATCH TRANSDERM SCH (09:09)
[2017-05-28] MEDS: FUROSEMIDE 40 MG TAB PO SCH (09:09)
[2017-05-28] MEDS: guaiFENesin SYRUP 100MG/5ML 200 MG/10 ML CUP PO PRN ×3 (09:09→21:40)
[2017-05-28] MEDS: DIGOXIN 125 MCG TAB PO SCH (09:09)
[2017-05-28] MEDS: METOPROLOL SUCCINATE (ER) 25 MG TAB.ER.24H PO SCH (09:09)
[2017-05-28] MEDS: ALPRAZolam 0.25 MG TAB PO PRN ×3 (09:53→21:40)
--- NOTE | 2017-05-28 10:43 | P.PN ---
Subjective Principal diagnosis: Acute exacerbation of COPD and right lung pneumonia A 61-year-old female patient, previous history of mitral valve stenosis and chronic atrial fibrillation and COPD, presented to the hospital because of increased shortness of breath, cough and chest congestion. No reported fever or chills. She started off with some sinus infection for which she was given antibiotics on outpatient basis through her primary care physician. Subsequently she started having increased dyspnea. No pleurisy. No hemoptysis. Denied having any fever or chills. Denied having any chest pain or back pain or shoulder pain. Her chest x-ray shows right upper lobe and the right infrahilar pulmonary infiltrate. The patient was placed on a BiPAP initially and she got moved to the intensive care unit. This morning the BiPAP is off and she is currently on oxygen at 2 L and pulse ox around 98%. Hemodynamically stable. No nausea. No vomiting. No change in mental status. No other complaints otherwise. She remains in atrial fibrillation with a controlled rate. Her PT/INR is therapeutic for now. On 05/24/2017, the patient is being seen in the follow-up. The patient is still somewhat short of breath and bronchospastic and wheezy secondary to COPD exacerbation. She also has a right lung pneumonia and follow-up chest x-ray from today still showing a right mid/basilar pulmonary infiltrate and small bilateral pleural effusion is again demonstrated. He also has chronic parenchymal change with some background cardiomegaly and pulmonary vessel congestion. As mentioned earlier the patient suffers from chronic microvascular noted and she is feeling chronic atrial fibrillation. Her white cell count came up to 21,000. INR is therapeutic at 3.4. The patient is on broad-spectrum antibiotics and she is receiving Rocephin and Zithromax. On 05/25/2017 I'm seeing this patient in follow-up. She is doing slightly better compared to yesterday. The chest x-ray shows improvement in the aeration of the right lung and resolution of the right midlung pulmonary infiltrate. There is however still some pulmonary vessel congestion. The patient will be given another dose of IV Lasix. She currently has a Owusu catheter in place. She remains in atrial fibrillation. PT/INR is subtherapeutic. The Coumadin is currently on hold. She remains on broad- spectrum antibiotics and she still covered with a combination of Zosyn and Zithromax. She is also on DuoNeb nebulized treatments around the clock and she is also on IV Solu-Medrol. Her white cell count is dropping down to 14.2. INR is at 5.2. On 05/26/2017, I'm seeing this patient on follow-up. She is doing a bit better, she is gradually improving, but not quite ready for discharge at this point. Chest x-ray is also showing some improvement. Clinically she is about 40% better. Continues to have intermittent cough and wheezing. No fever no chills no hemoptysis and no chest pain. CBC is relatively unremarkable, basic metabolic profile is relatively normal. Chest x-ray continues to show some opacity in the right lower lobe suspicious for pneumonia, doubt atelectasis. Patient was reevaluated today on 05/27/2017, continues to have intermittent episodes of cough wheezing and shortness of breath. Cough is productive with whitish phlegm, no fever no chills no hemoptysis and no chest pain. CBC was relatively normal. INR is still subtherapeutic at 1.8. Basic metabolic profile is normal. The patient is seen again today 05/28/2017 in follow-up on the selective care unit. She is awake and alert in no acute distress. She states she is breathing easier today as compared to yesterday. She continues with a loose nonproductive cough. She is maintaining O2 saturations in the low 90s on room air. She's been hemodynamically stable. Afebrile. White count 10.8. Her sputum was positive for Pseudomonas fluorescens/[place] which is sensitive to Zosyn. Azithromycin was discontinued. Her chest x-ray does show evidence of central venous congestion. She's currently in a negative balance. She is on Lasix 40 mg daily. Objective - Vital Signs Vital signs: Vital Signs Temp 97.3 F L 05/28/17 04:00 Pulse 84 05/28/17 07:25 Resp 20 05/28/17 04:00 BP 136/66 05/28/17 04:00 Pulse Ox 93 L 05/28/17 04:00 Intake & Output 05/27/17 05/28/17 05/28/17 18:59 06:59 18:59 Intake Total 702 700 360 Output Total 1750 700 Balance -1048 0 360 Weight 73.3 kg Intake: Intake, IV Titration 100 Amount Piperacillin-Tazobactam 3 100 .375 gm In Dextrose/Water 1 50ml.bag @ 12.5 mls/hr IVPB Q8HR [facility] Rx#: [id number] Oral 702 600 360 Output: Urine 1750 700 Uretheral (Owusu) 350 Other: Voiding Method Indwelling Catheter Toilet - Exam GENERAL EXAM: Alert, comfortable in no apparent distress. HEAD: Normocephalic. EYES: Normal reaction of pupils, equal size. NOSE: Clear with pink turbinates. THROAT: No erythema or exudates. NECK: No masses, no JVD. CHEST: No chest wall deformity. LUNGS: Equal air entry with basilar crackles more so on the right. Diminished. CVS: S1 and S2 normal with an audible murmurs, irregular rhythm. ABDOMEN: No hepatosplenomegaly, normal bowel sounds, no guarding or rigidity. SPINE: No scoliosis or deformity SKIN: No rashes CENTRAL NERVOUS SYSTEM: No focal deficits, tone is normal in all 4 extremities. Extremities: There is no significant peripheral edema. No clubbing, no cyanosis. Peripheral pulses are intact. - Labs CBC & Chem 7: 05/28/17 05:42 05/28/17 05:42 Labs: Abnormal Lab Results - Last 24 Hours (Table) 05/27/17 05/27/17 05/27/17 Range/Units 12:07 16:28 21:09 WBC (3.8-10.6) k/uL Neutrophils # (1.3-7.7) k/uL Lymphocytes # (1.0-4.8) k/uL Sodium (137-145) mmol/L BUN (7-17) mg/dL Glucose (74-99) mg/dL POC Glucose (mg/dL) 155 H 131 H 154 H (75-99) mg/dL 05/28/17 05/28/17 05/28/17 Range/Units 05:42 05:42 06:03 WBC 10.8 H (3.8-10.6) k/uL Neutrophils # 9.4 H (1.3-7.7) k/uL Lymphocytes # 0.8 L (1.0-4.8) k/uL Sodium 136 L (137-145) mmol/L BUN 26 H (7-17) mg/dL Glucose 122 H (74-99) mg/dL POC Glucose (mg/dL) 132 H (75-99) mg/dL Microbiology - Last 24 Hours (Table) 05/27/17 12:55 Gram Stain - Preliminary Sputum Sputum Culture - Preliminary 05/22/17 16:51 Blood Culture - Preliminary Blood No Growth after 120 hours Assessment and Plan Plan: Impression: #1 Acute exacerbation of chronic obstructive pulmonary disease complicated by acute right lung pneumonia secondary to Pseudomonas fluorescens/putida, sensitive to Zosyn. #2 Acute exacerbation of diastolic congestive heart failure. Preserved left ventricular systolic function with estimated ejection fraction 50-55%. #3 Acute hypoxic respiratory failure secondary to above. #4 Severe mitral stenosis. #5 Severe pulmonary hypertension with an RVSP of 81 mmHg. #6 Chronic atrial fibrillation, anticoagulated with warfarin, last INR 1.8. #7 Chronic and ongoing tobacco dependence. 8 History of CVA/TIA with residual left-sided weakness. #9 History of ASD closure. Plan: The patient was seen and evaluated by Dr. Vu. We'll continue with her COPD treatment. She is still dyspneic on minimal exertion. We'll continue with her bronchodilators, Symbicort, IV Solu-Medrol, antibiotics in the form of Zosyn. Continue with diuretics. Continue with anticoagulation.
[2017-05-28 10:47] VITALS: BMI 26.0
--- NOTE | 2017-05-28 11:03 | XR ---
EXAMINATION TYPE: XR chest 1V DATE OF EXAM: 05/28/2017 HISTORY: Shortness of breath. COMPARISON: 05/27/2017 TECHNIQUE: Single view of the chest is submitted. FINDINGS: Demonstrated are scattered senescent parenchymal change. Persistent right lower lobe infiltrate and/or atelectasis. No significant change. The heart is stable. Hilar and mediastinal structures are within normal limits. Degenerative changes are seen of the dorsal spine. IMPRESSION: 1. Persistent right lower lobe infiltrate and/or atelectasis. No significant change.
--- NOTE | 2017-05-28 11:23 | P.PN ---
Subjective Patient up ambulating noted to have a shuffling gait lung sounds improving. Chest x-ray continues to show pneumonia. Patient had evaluation by physical therapy for her weakness Objective - Vital Signs Vital signs: Vital Signs Temp 97.8 F 05/28/17 08:00 Pulse 80 05/28/17 10:57 Resp 18 05/28/17 08:00 BP 144/68 05/28/17 08:00 Pulse Ox 96 05/28/17 08:00 Intake & Output 05/27/17 05/28/17 05/28/17 18:59 06:59 18:59 Intake Total 702 700 480 Output Total 1750 700 Balance -1048 0 480 Weight 73.3 kg 73.3 kg Intake: IV 120 Sodium Chloride 0.9% 1, 120 000 ml @ 20 mls/hr IV . Q24H [facility] Rx#:[id number] Intake, IV Titration 100 Amount Piperacillin-Tazobactam 3 100 .375 gm In Dextrose/Water 1 50ml.bag @ 12.5 mls/hr IVPB Q8HR [facility] Rx#: [id number] Oral 702 600 360 Output: Urine 1750 700 Uretheral (Owusu) 350 Other: Voiding Method Indwelling Catheter Toilet # Voids 1 - Constitutional General appearance: Present: mild distress - EENT Eyes: Present: PERRLA Ears: bilateral: normal - Neck Neck: Present: normal ROM - Respiratory Respiratory: bilateral: diminished, wheezing - Cardiovascular Rhythm: irregularly irregular - Gastrointestinal General gastrointestinal: Present: soft - Integumentary Integumentary: Present: normal - Neurologic Neurologic: Present: CNII-XII intact - Musculoskeletal Musculoskeletal Comment(s): Shuffling gait noted - Psychiatric Psychiatric: Present: A&O x's 3, appropriate affect, intact judgment & insight - Labs CBC & Chem 7: 05/28/17 05:42 05/28/17 05:42 Labs: Abnormal Lab Results - Last 24 Hours (Table) 05/27/17 05/27/17 05/27/17 Range/Units 12:07 16:28 21:09 WBC (3.8-10.6) k/uL Neutrophils # (1.3-7.7) k/uL Lymphocytes # (1.0-4.8) k/uL Sodium (137-145) mmol/L BUN (7-17) mg/dL Glucose (74-99) mg/dL POC Glucose (mg/dL) 155 H 131 H 154 H (75-99) mg/dL 05/28/17 05/28/17 05/28/17 Range/Units 05:42 05:42 06:03 WBC 10.8 H (3.8-10.6) k/uL Neutrophils # 9.4 H (1.3-7.7) k/uL Lymphocytes # 0.8 L (1.0-4.8) k/uL Sodium 136 L (137-145) mmol/L BUN 26 H (7-17) mg/dL Glucose 122 H (74-99) mg/dL POC Glucose (mg/dL) 132 H (75-99) mg/dL Microbiology - Last 24 Hours (Table) 05/27/17 12:55 Gram Stain - Preliminary Sputum Sputum Culture - Preliminary 05/22/17 16:51 Blood Culture - Preliminary Blood No Growth after 120 hours - Imaging and Cardiology Chest x-ray: report reviewed Assessment and Plan Plan: Assessment Chronic obstructive pulmonary disease acute exacerbation secondary to pneumonia with sepsis acute hypoxic respiratory failure post BiPAP History of CVA/TIA with left-sided weakness Hypertension History of back surgery opioid dependent Congestive heart failure diastolic dysfunction acute on chronic with pulmonary hypertension Continued ongoing nicotine dependence Atrial fibrillation Severe mitral valve stenosis Plan Continue consultation with pulmonology and infectious disease and cardiology Patient on Zosyn at this time
--- NOTE | 2017-05-28 11:26 | P.PN ---
Subjective Principal diagnosis: COPD exacerbation and pneumonia This is a 61-year-old female with history of mitral valve stenosis and chronic atrial fibrillation, COPD, who presented to the hospital with symptoms of progressively worsening shortness of breath. Chest x-ray revealed right upper lobe infiltrate, repeat chest x-ray this morning revealed persistent right lobe infiltrate. She did have some mild congestive heart failure, currently on by mouth Lasix. Sputum positive for Pseudomonas, sensitive to Zosyn, patient has chronic persistent atrial fibrillation, continues to be in atrial fibrillation this morning. Heart rate in the 80s to 90s. INR yesterday was 1.8 we will check an INR today as well. Patient seen and examined this morning, sitting up at bedside. States that her breathing is significantly improved. Still coughing up mild amounts of productive sputum. Echocardiogram with Doppler study was performed which revealed an ejection fraction of 50-55%, moderate to severe TR, severe pulmonary hypertension, moderate mitral regurgitation. Severe mitral stenosis. Blood pressure this morning 142/68 with a heart rate in the 80s. Objective - Vital Signs Vital signs: Vital Signs Temp 97.8 F 05/28/17 08:00 Pulse 80 05/28/17 10:57 Resp 18 05/28/17 08:00 BP 144/68 05/28/17 08:00 Pulse Ox 96 05/28/17 08:00 Intake & Output 05/27/17 05/28/17 05/28/17 18:59 06:59 18:59 Intake Total 702 700 480 Output Total 1750 700 Balance -1048 0 480 Weight 73.3 kg 73.3 kg Intake: IV 120 Sodium Chloride 0.9% 1, 120 000 ml @ 20 mls/hr IV . Q24H [facility] Rx#:[id number] Intake, IV Titration 100 Amount Piperacillin-Tazobactam 3 100 .375 gm In Dextrose/Water 1 50ml.bag @ 12.5 mls/hr IVPB Q8HR [facility] Rx#: [id number] Oral 702 600 360 Output: Urine 1750 700 Uretheral (Owusu) 350 Other: Voiding Method Indwelling Catheter Toilet # Voids 1 - Exam PHYSICAL EXAMINATION: HEENT: Head is atraumatic, normocephalic. Pupils equal, round. Neck is supple. There is no elevated jugular venous pressure. HEART EXAMINATION: Heart S1 and S2 irregularly irregular systolic and diastolic murmur heard. CHEST EXAMINATION: Lungs reveal expiratory wheezes. With coarse rales to bilateral bases. ABDOMEN: Soft, nontender. Bowel sounds are heard. No organomegaly noted. EXTREMITIES: 2+ peripheral pulses with no evidence of peripheral edema and no calf tenderness noted. NEUROLOGIC patient is awake, alert and oriented -3. . - Labs CBC & Chem 7: 05/28/17 05:42 05/28/17 05:42 Labs: Abnormal Lab Results - Last 24 Hours (Table) 05/27/17 05/27/17 05/27/17 Range/Units 12:07 16:28 21:09 WBC (3.8-10.6) k/uL Neutrophils # (1.3-7.7) k/uL Lymphocytes # (1.0-4.8) k/uL Sodium (137-145) mmol/L BUN (7-17) mg/dL Glucose (74-99) mg/dL POC Glucose (mg/dL) 155 H 131 H 154 H (75-99) mg/dL 05/28/17 05/28/17 05/28/17 Range/Units 05:42 05:42 06:03 WBC 10.8 H (3.8-10.6) k/uL Neutrophils # 9.4 H (1.3-7.7) k/uL Lymphocytes # 0.8 L (1.0-4.8) k/uL Sodium 136 L (137-145) mmol/L BUN 26 H (7-17) mg/dL Glucose 122 H (74-99) mg/dL POC Glucose (mg/dL) 132 H (75-99) mg/dL Microbiology - Last 24 Hours (Table) 05/27/17 12:55 Gram Stain - Preliminary Sputum Sputum Culture - Preliminary 05/22/17 16:51 Blood Culture - Preliminary Blood No Growth after 120 hours Assessment and Plan (1) COPD exacerbation Status: Acute (2) Pneumonia Status: Acute (3) Diastolic CHF, acute on chronic Status: Acute (4) Mitral valve stenosis, severe Status: Acute (5) Pulmonary HTN Status: Acute (6) Chronic a-fib Status: Acute (7) Nicotine dependence Status: Acute (8) History of CVA (cerebrovascular accident) Status: Acute (9) Status post patch closure of ASD Status: Acute Plan: From cardiology's perspective, we'll continue current dose of beta tay. Give the patient 2-1/2 mg of Coumadin today. Continue dose of by mouth Lasix. DNP note has been reviewed, I agree with a documented findings and plan of care. Patient was seen and examined.
[2017-05-28 12:04] LABS: Glucose,Whole Blood 120 mg/dL (75-99)
[2017-05-28 12:23] LABS: Prothrombin Time 18.9 sec (9.0-12.0)
[2017-05-28 17:08] LABS: Glucose,Whole Blood 137 mg/dL (75-99)
[2017-05-28] MEDS: SODIUM CHLORIDE 0.9% 1,000 ML IV SCH (17:27)
[2017-05-28] MEDS: SENNOSIDES 8.6 MG TAB PO PRN (17:27)
[2017-05-28 20:50] LABS: Glucose,Whole Blood 133 mg/dL (75-99)
[2017-05-28] MEDS: TEMAZEPAM 30 MG CAP PO SCH (21:33)
[2017-05-29] MEDS: guaiFENesin SYRUP 100MG/5ML 200 MG/10 ML CUP PO PRN (05:38)
[2017-05-29] MEDS: ALPRAZolam 0.25 MG TAB PO PRN (05:38)
[2017-05-29] MEDS: oxyCODONE-APAP 10-325MG 1 EACH TAB PO PRN ×3 (05:38→14:08)
[2017-05-29] MEDS: methylPREDNISolone SOD SUCCI 125 MG/2 ML VIAL IV SCH (05:38)
[2017-05-29 05:44] LABS: Prothrombin Time 19.5 sec (9.0-12.0)
[2017-05-29 05:45] LABS: Glucose,Whole Blood 130 mg/dL (75-99)
[2017-05-29] MEDS: INSULIN LISPRO (humaLOG) 300 UNIT/3 ML VIAL SQ SCH (05:50)
[2017-05-29 05:53] LABS: ALT 103 U/L (9-52); AST 69 U/L (14-36); Alkaline Phosphatase 102 U/L (38-126); Anion Gap 11 mmol/L; Blood Urea Nitrogen 27 mg/dL (7-17); Calcium 9.2 mg/dL (8.4-10.2); Carbon Dioxide 30 mmol/L (22-30); Chloride 96 mmol/L (98-107); Glucose 126 mg/dL (74-99); Magnesium 2.4 mg/dL (1.6-2.3); Non-African American GFR(MDRD) >60 (>60 ml/min/1.73 sqM); Potassium 3.6 mmol/L (3.5-5.1); Sodium 137 mmol/L (137-145); Total Bilirubin 1.6 mg/dL (0.2-1.3)
[2017-05-29 06:05] LABS: Basophils % (A) 0 %; CH 30.4; CHCM 32.7; Eosinophils % (A) 0 %; HCT 45.7 % (34.0-46.0); HDW 2.58; HGB 15.3 gm/dL (11.4-16.0); Luc # (Auto) 0.13; Luc % (Auto) 1; Lymphocytes # (A) 0.7 k/uL (1.0-4.8); Lymphocytes % (A) 6 %; MCH 31.3 pg (25.0-35.0); MCHC 33.4 g/dL (31.0-37.0); MCV 93.6 fL (80.0-100.0); Mean Platelet Volume 7.5; Monocytes # (A) 0.6 k/uL (0-1.0); Monocytes % (A) 5 %; Neutrophils # (A) 10.1 k/uL (1.3-7.7); Neutrophils % (A) 87 %; RBC 4.88 m/uL (3.80-5.40); RDW 14.1 % (11.5-15.5); WBC 11.6 k/uL (3.8-10.6); WBC (Perox) 11.93
[2017-05-29] MEDS: PANTOPRAZOLE 40 MG TABLET PO SCH (06:07)
[2017-05-29] MEDS: IPRATROPIUM-ALBUTEROL 3 ML NEB INHALATION SCH ×2 (08:41→12:06)
[2017-05-29] MEDS: SYMBICORT 160-4.5 MCG INHALER INHALATION SCH (08:41)
--- NOTE | 2017-05-29 08:57 | PN ---
PROGRESS NOTE DATE OF SERVICE: 05/28/2017. REASON FOR FOLLOWUP VISIT: Pneumonia. INTERVAL HISTORY: The patient is afebrile. She is breathing comfortably. The cough has decreased in intensity. No chest pain. No abdominal pain. No nausea, vomiting, or any diarrhea. EXAMINATION: Blood pressure 135/86 with a pulse of 79, temperature 97.8%. She is 99% on room air. General description is a middle-aged female up in the bed in no distress. RESPIRATORY SYSTEM: Unlabored breathing with some expiratory wheeze. HEART: S1, S2. Regular rate and rhythm. ABDOMEN: Soft, no tenderness. LABS: Hemoglobin is 14.8, white count 10.8 with a BUN of 26, creatinine 0.90. Initial sputum with Barbara and Pseudomonas fluorescens. DIAGNOSTIC IMPRESSION AND PLAN: Patient admitted to the hospital with pneumonia right-sided with question of possible gram negative. Sputum with Barbara and Pseudomonas fluorescens usually a colonizer rather than true pathogen. Repeat sputum culture currently pending. She will continue Zosyn with adjustment further based on the repeat culture. Continue supportive care. MMODL / IJN: [id number] /
[2017-05-29] MEDS: PIPERACILLIN-TAZOBACTAM 3.375 GM in DEXTROSE/WATER 1 50ML.BAG IVPB SCH (09:07)
[2017-05-29] MEDS: DIGOXIN 125 MCG TAB PO SCH (09:18)
[2017-05-29] MEDS: ESCITALOPRAM 10 MG TAB PO SCH (09:19)
[2017-05-29] MEDS: FUROSEMIDE 40 MG TAB PO SCH (09:19)
[2017-05-29] MEDS: LORATADINE 10 MG TAB PO SCH (09:19)
[2017-05-29] MEDS: METOPROLOL SUCCINATE (ER) 25 MG TAB.ER.24H PO SCH (09:19)
[2017-05-29] MEDS: NICOTINE 14MG/24HR PATCH TRANSDERM SCH (09:19)
[2017-05-29 11:33] LABS: Glucose,Whole Blood 147 mg/dL (75-99)
--- NOTE | 2017-05-29 12:40 | P.PN ---
Subjective Principal diagnosis: COPD exacerbation This is a pleasant 61-year-old female with history of mitral valve stenosis, chronic atrial fibrillation and COPD. She presented to the hospital with symptoms of progressively worsening shortness of breath. Chest chest revealed right upper lobe infiltrate with some mild congestive heart failure. Sputum was positive for Pseudomonas. She's been on IV antibiotics. Her INR is therapeutic at 2.0. Echocardiogram with Doppler study revealed an ejection fraction of 55%, moderate to severe TR, severe pulmonary hypertension, severe mitral stenosis and moderate mitral regurgitation. Vital signs stable. Upon examination, the patient is sitting up in bed. She is feeling quite a bit better today. Denies complaints of palpitations, dizziness or chest discomfort. She feels her breathing is better compared to Yesterday. Objective - Vital Signs Vital signs: Vital Signs Temp 97.0 F L 05/29/17 04:00 Pulse 91 05/29/17 12:18 Resp 20 05/29/17 04:00 BP 137/70 05/29/17 04:00 Pulse Ox 100 05/29/17 04:00 Intake & Output 05/28/17 05/29/17 05/29/17 18:59 06:59 18:59 Intake Total 480 1220 180 Balance 480 1220 180 Weight 73.3 kg 73.5 kg Intake: IV 120 240 Sodium Chloride 0.9% 1, 120 240 000 ml @ 20 mls/hr IV . Q24H [facility] Rx#:[id number] Oral 360 980 180 Other: Voiding Method Toilet # Voids 4 1 # Bowel Movements 3 - Exam PHYSICAL EXAMINATION: HEENT: Head is atraumatic, normocephalic. Pupils equal, round. Neck is supple. There is no elevated jugular venous pressure. HEART EXAMINATION: Heart sounds irregularly irregular, S1 and S2 normal, with a systolic and diastolic murmur heard. CHEST EXAMINATION: Lungs reveal expiratory wheezing throughout. No chest wall tenderness is noted on palpation or with deep breathing. ABDOMEN: Soft, nontender. Bowel sounds are heard. No organomegaly noted. EXTREMITIES: 2+ peripheral pulses with no evidence of peripheral edema and no calf tenderness noted. NEUROLOGIC patient is awake, alert and oriented x3. . - Labs CBC & Chem 7: 05/29/17 05:22 05/29/17 05:22 Labs: Abnormal Lab Results - Last 24 Hours (Table) 05/28/17 05/28/17 05/29/17 Range/Units 17:05 20:49 05:22 WBC (3.8-10.6) k/uL Neutrophils # (1.3-7.7) k/uL Lymphocytes # (1.0-4.8) k/uL PT 19.5 H (9.0-12.0) sec INR 2.0 H (<1.2) Chloride (98-107) mmol/L BUN (7-17) mg/dL Glucose (74-99) mg/dL POC Glucose (mg/dL) 137 H 133 H (75-99) mg/dL Magnesium (1.6-2.3) mg/dL Total Bilirubin (0.2-1.3) mg/dL AST (14-36) U/L ALT (9-52) U/L 05/29/17 05/29/17 05/29/17 Range/Units 05:22 05:22 05:43 WBC 11.6 H (3.8-10.6) k/uL Neutrophils # 10.1 H (1.3-7.7) k/uL Lymphocytes # 0.7 L (1.0-4.8) k/uL PT (9.0-12.0) sec INR (<1.2) Chloride 96 L (98-107) mmol/L BUN 27 H (7-17) mg/dL Glucose 126 H (74-99) mg/dL POC Glucose (mg/dL) 130 H (75-99) mg/dL Magnesium 2.4 H (1.6-2.3) mg/dL Total Bilirubin 1.6 H (0.2-1.3) mg/dL AST 69 H (14-36) U/L ALT 103 H (9-52) U/L 05/29/17 Range/Units 11:24 WBC (3.8-10.6) k/uL Neutrophils # (1.3-7.7) k/uL Lymphocytes # (1.0-4.8) k/uL PT (9.0-12.0) sec INR (<1.2) Chloride (98-107) mmol/L BUN (7-17) mg/dL Glucose (74-99) mg/dL POC Glucose (mg/dL) 147 H (75-99) mg/dL Magnesium (1.6-2.3) mg/dL Total Bilirubin (0.2-1.3) mg/dL AST (14-36) U/L ALT (9-52) U/L Microbiology - Last 24 Hours (Table) 05/22/17 16:51 Blood Culture - Final Blood No Growth after 144 hours Assessment and Plan Plan: Assessment and plan #1 COPD exacerbation #2 pneumonia, sputum positive for Pseudomonas #3 acute on chronic diastolic congestive heart failure #4 mitral valve stenosis, severe #5 pulmonary hypertension #6 chronic atrial fibrillation, anticoagulated on Coumadin #7 nicotine dependence From Cardiology's perspective, we will continue digoxin 125 g by mouth daily, Lasix 40 mg by mouth daily, Toprol succinate 25 mg by mouth daily and Coumadin to keep INR between 2 and 3. Follow-up with the patient. The above dictated assessment and findings were discussed with signing physician. The impression and plan of care have been directed as dictated. Yelena Soria, Nurse Practitioner, acting as scribe for signing physician.
--- NOTE | 2017-05-29 13:36 | P.PN ---
Subjective Principal diagnosis: Acute exacerbation of COPD and right lung pneumonia A 61-year-old female patient, previous history of mitral valve stenosis and chronic atrial fibrillation and COPD, presented to the hospital because of increased shortness of breath, cough and chest congestion. No reported fever or chills. She started off with some sinus infection for which she was given antibiotics on outpatient basis through her primary care physician. Subsequently she started having increased dyspnea. No pleurisy. No hemoptysis. Denied having any fever or chills. Denied having any chest pain or back pain or shoulder pain. Her chest x-ray shows right upper lobe and the right infrahilar pulmonary infiltrate. The patient was placed on a BiPAP initially and she got moved to the intensive care unit. This morning the BiPAP is off and she is currently on oxygen at 2 L and pulse ox around 98%. Hemodynamically stable. No nausea. No vomiting. No change in mental status. No other complaints otherwise. She remains in atrial fibrillation with a controlled rate. Her PT/INR is therapeutic for now. On 05/24/2017, the patient is being seen in the follow-up. The patient is still somewhat short of breath and bronchospastic and wheezy secondary to COPD exacerbation. She also has a right lung pneumonia and follow-up chest x-ray from today still showing a right mid/basilar pulmonary infiltrate and small bilateral pleural effusion is again demonstrated. He also has chronic parenchymal change with some background cardiomegaly and pulmonary vessel congestion. As mentioned earlier the patient suffers from chronic microvascular noted and she is feeling chronic atrial fibrillation. Her white cell count came up to 21,000. INR is therapeutic at 3.4. The patient is on broad-spectrum antibiotics and she is receiving Rocephin and Zithromax. On 05/25/2017 I'm seeing this patient in follow-up. She is doing slightly better compared to yesterday. The chest x-ray shows improvement in the aeration of the right lung and resolution of the right midlung pulmonary infiltrate. There is however still some pulmonary vessel congestion. The patient will be given another dose of IV Lasix. She currently has a Owusu catheter in place. She remains in atrial fibrillation. PT/INR is subtherapeutic. The Coumadin is currently on hold. She remains on broad- spectrum antibiotics and she still covered with a combination of Zosyn and Zithromax. She is also on DuoNeb nebulized treatments around the clock and she is also on IV Solu-Medrol. Her white cell count is dropping down to 14.2. INR is at 5.2. On 05/26/2017, I'm seeing this patient on follow-up. She is doing a bit better, she is gradually improving, but not quite ready for discharge at this point. Chest x-ray is also showing some improvement. Clinically she is about 40% better. Continues to have intermittent cough and wheezing. No fever no chills no hemoptysis and no chest pain. CBC is relatively unremarkable, basic metabolic profile is relatively normal. Chest x-ray continues to show some opacity in the right lower lobe suspicious for pneumonia, doubt atelectasis. Patient was reevaluated today on 05/27/2017, continues to have intermittent episodes of cough wheezing and shortness of breath. Cough is productive with whitish phlegm, no fever no chills no hemoptysis and no chest pain. CBC was relatively normal. INR is still subtherapeutic at 1.8. Basic metabolic profile is normal. The patient is seen again today 05/28/2017 in follow-up on the selective care unit. She is awake and alert in no acute distress. She states she is breathing easier today as compared to yesterday. She continues with a loose nonproductive cough. She is maintaining O2 saturations in the low 90s on room air. She's been hemodynamically stable. Afebrile. White count 10.8. Her sputum was positive for Pseudomonas fluorescens/[place] which is sensitive to Zosyn. Azithromycin was discontinued. Her chest x-ray does show evidence of central venous congestion. She's currently in a negative balance. She is on Lasix 40 mg daily. Reevaluated on 05/29/2017, patient seems to be doing better, breathing a lot easier, less cough and less wheezing less shortness of breath. Her Zosyn will be changed to Augmentin, and possibly the patient could be discharged home today. Must have follow-up on outpatient basis. However because of the cost of the drugs, we'll arrange for social secretary to evaluate the patient to help with the cost of the drugs. Labs were reviewed and they seem to be relatively unremarkable. Objective - Vital Signs Vital signs: Vital Signs Temp 97.0 F L 05/29/17 04:00 Pulse 91 05/29/17 12:18 Resp 20 05/29/17 04:00 BP 137/70 05/29/17 04:00 Pulse Ox 100 05/29/17 04:00 Intake & Output 05/28/17 05/29/17 05/29/17 18:59 06:59 18:59 Intake Total 480 1220 180 Balance 480 1220 180 Weight 73.3 kg 73.5 kg Intake: IV 120 240 Sodium Chloride 0.9% 1, 120 240 000 ml @ 20 mls/hr IV . Q24H [facility] Rx#:[id number] Oral 360 980 180 Other: Voiding Method Toilet # Voids 4 1 # Bowel Movements 3 - Exam Physical Exam: Revealed a 61-year-old female in no distress. HEENT:[Neck is supple.] [No neck masses.] [No thyromegaly.] [No JVD.] Chest: [Wheezing on forced expiratory maneuver was noted.] Cardiac Exam: Irregular irregular rhythm [Normal S1 and S2, no S3 gallop, no murmur.] Abdomen: [Soft, nontender, no megaly, no rebound, no guarding, normal bowel sounds.] Extremities: [No clubbing, no edema, no cyanosis.] Neurological Exam: [No focal neurologic deficit.] - Labs CBC & Chem 7: 05/29/17 05:22 05/29/17 05:22 Labs: Abnormal Lab Results - Last 24 Hours (Table) 05/28/17 05/28/17 05/29/17 Range/Units 17:05 20:49 05:22 WBC (3.8-10.6) k/uL Neutrophils # (1.3-7.7) k/uL Lymphocytes # (1.0-4.8) k/uL PT 19.5 H (9.0-12.0) sec INR 2.0 H (<1.2) Chloride (98-107) mmol/L BUN (7-17) mg/dL Glucose (74-99) mg/dL POC Glucose (mg/dL) 137 H 133 H (75-99) mg/dL Magnesium (1.6-2.3) mg/dL Total Bilirubin (0.2-1.3) mg/dL AST (14-36) U/L ALT (9-52) U/L 05/29/17 05/29/17 05/29/17 Range/Units 05:22 05:22 05:43 WBC 11.6 H (3.8-10.6) k/uL Neutrophils # 10.1 H (1.3-7.7) k/uL Lymphocytes # 0.7 L (1.0-4.8) k/uL PT (9.0-12.0) sec INR (<1.2) Chloride 96 L (98-107) mmol/L BUN 27 H (7-17) mg/dL Glucose 126 H (74-99) mg/dL POC Glucose (mg/dL) 130 H (75-99) mg/dL Magnesium 2.4 H (1.6-2.3) mg/dL Total Bilirubin 1.6 H (0.2-1.3) mg/dL AST 69 H (14-36) U/L ALT 103 H (9-52) U/L 05/29/17 Range/Units 11:24 WBC (3.8-10.6) k/uL Neutrophils # (1.3-7.7) k/uL Lymphocytes # (1.0-4.8) k/uL PT (9.0-12.0) sec INR (<1.2) Chloride (98-107) mmol/L BUN (7-17) mg/dL Glucose (74-99) mg/dL POC Glucose (mg/dL) 147 H (75-99) mg/dL Magnesium (1.6-2.3) mg/dL Total Bilirubin (0.2-1.3) mg/dL AST (14-36) U/L ALT (9-52) U/L Microbiology - Last 24 Hours (Table) 05/22/17 16:51 Blood Culture - Final Blood No Growth after 144 hours Assessment and Plan Plan: 1 acute COPD exacerbation with secondary shortness of breath, improving slowly 2 acute right lung pneumonia with patchy infiltration involving the right midlung of the right lower lobe infrahilar area, improving. 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 Follow-up on outpatient basis. Time with Patient: Less than 30
[2017-05-29 14:02] VITALS: BP 114/72; PULSE 83; RESP 16; TEMP 97
--- NOTE | 2017-05-29 15:24 | PN ---
PROGRESS NOTE DATE OF SERVICE: 05/29/2017 REASON FOR FOLLOWUP: Pneumonia. INTERVAL HISTORY: The patient was seen on rounds early this afternoon. The patient's overall breathing has improved. The patient denies having any chest pain. Cough has decreased in intensity. No abdominal pain. No diarrhea. PHYSICAL EXAMINATION: Blood pressure is 114/72 with a pulse of 83, temperature 97. She is 100% on 2 L nasal cannula. General description is a middle-aged female up in the bed in no distress. RESPIRATORY SYSTEM: Unlabored breathing. Minimal wheeze. HEART: S1, S2. Regular rate and rhythm. ABDOMEN: Soft. No tenderness. LABS: Hemoglobin 15.3, white count 11.6 with a BUN of 27, creatinine 0.90. Repeat sputum so far was contaminated. Initial sputum with blessing and Pseudomonas fluorescens, likely a colonizer or contamination. DIAGNOSTIC IMPRESSION AND PLAN: Patient admitted to hospital with right lower lobe pneumonia with chronic obstructive pulmonary disease exacerbation has shown overall improvement with Zosyn. Plan to finish therapy with p.o. Augmentin 875 b.i.d. for another 10 days with close outpatient followup. MMODL / IJN: [id number] /
[2017-05-29] MEDS ORDERED: WARFARIN 2.5 MG TAB PO ONE (18:00)
--- NOTE | 2017-05-29 19:49 | P.DS ---
Providers Date of admission: 05/22/17 19:12 Attending physician: Raphael Egan Consults: 05/22/17 19:06 Consult Physician Stat Consulting Provider: Katy Wiley Consult Reason/Comments: Pneumonia, COPD Do you want consulting provider notified?: Yes 05/23/17 14:05 Consult Physician Routine Consulting Provider: Elida Trevino Consult Reason/Comments: sepsis Do you want consulting provider notified?: Yes 05/26/17 13:35 Consult Physician Urgent Consulting Provider: Fidel Mehta Consult Reason/Comments: afib rvr Do you want consulting provider notified?: Yes Primary care physician: Raphael Egan Hospital Course: 21-year-old woman who was admitted with COPD acute exacerbation as well as CHF acute exacerbation was treated symptomatically. Patient was seen by pulmonology and cardiology. Patient improved significantly. Patient had significant right stenosis. Recommended close outpatient follow-up. The patient also apparently had needed dental workup before any surgical procedures be contemplated. On exam vitals are stable. S1 and S2 normal. Respiratory system few crackles. Abdomen soft nontender. Patient be discharged in a stable condition with guarded prognosis. Patient is cleared by cardiology and pulmonology. Final diagnoses 1. Shortness with multifactorial with a COPD acute exacerbation as well as CHF exacerbation with acute on chronic diastolic dysfunction. 2. pneumonia possibly gram-negative sepsis present on admission to failure of outpatient treatment 3. acute hypoxic respiratory failure status post BiPAP present on admission multifactorial 4. History of CVA TIA 5. Mitral stenosis 6. Coumadin variably 7. Hypertension 8. History of back pain 9. History of CHF 10. History of cholecystectomy 11. Continue nicotine dependence Patient Condition at Discharge: Stable Plan - Discharge Summary New Discharge Prescriptions: New ALPRAZolam [Xanax] 0.25 mg PO TID PRN #20 tab PRN Reason: Anxiety Amoxic-Pot Clav 875-125Mg [Augmentin 875-125] 1 tab PO Q12HR #14 tablet Budesonide-Formot 160-4.5 Mcg [Symbicort 160-4.5 Mcg Inhaler] 2 puff INHALATION RT-BID #1 inh Ipratropium-Albuterol Nebulize [Duoneb 0.5 mg-3 mg/3 ml Soln] 3 ml INHALATION RT-QID #120 neb Metoprolol Succinate (ER) [Toprol XL] 25 mg PO DAILY #30 tab Nicotine 14Mg/24Hr Patch [Habitrol] 1 patch TRANSDERM DAILY #30 patch Pantoprazole [Protonix] 40 mg PO AC-BRKFST #30 tab predniSONE 10 mg PO DIRECTED #30 tab Sennosides [Senokot] 8.6 mg PO BID PRN #60 tab PRN Reason: Constipation Continue oxyCODONE-APAP 10-325MG [Percocet 10-325 mg] 1 tab PO Q4H PRN PRN Reason: Pain Warfarin [Coumadin] 2 mg PO DAILY Temazepam [Restoril] 30 mg PO HS Loratadine [Claritin] 10 mg PO DAILY Digoxin [Lanoxin] 125 mcg PO DAILY Escitalopram [Lexapro] 10 mg PO DAILY #30 Changed Furosemide [Lasix] 40 mg PO DAILY #0 Discharge Medication List Digoxin [Lanoxin] 125 mcg PO DAILY 05/22/17 [History] Loratadine [Claritin] 10 mg PO DAILY 05/22/17 [History] Temazepam [Restoril] 30 mg PO HS 05/22/17 [History] Warfarin [Coumadin] 2 mg PO DAILY 05/22/17 [History] oxyCODONE-APAP 10-325MG [Percocet 10-325 mg] 1 tab PO Q4H PRN 05/22/17 [History] ALPRAZolam [Xanax] 0.25 mg PO TID PRN #20 tab 05/29/17 [Rx] Amoxic-Pot Clav 875-125Mg [Augmentin 875-125] 1 tab PO Q12HR #14 tablet [Rx] Budesonide-Formot 160-4.5 Mcg [Symbicort 160-4.5 Mcg Inhaler] 2 puff INHALATION RT-BID #1 inh 05/29/17 [Rx] Escitalopram [Lexapro] 10 mg PO DAILY #30 05/29/17 [Rx] Furosemide [Lasix] 40 mg PO DAILY #0 05/29/17 [Rx] Ipratropium-Albuterol Nebulize [Duoneb 0.5 mg-3 mg/3 ml Soln] 3 ml INHALATION RT -QID #120 neb 05/29/17 [Rx] Metoprolol Succinate (ER) [Toprol XL] 25 mg PO DAILY #30 tab 05/29/17 [Rx] Nicotine 14Mg/24Hr Patch [Habitrol] 1 patch TRANSDERM DAILY #30 patch 05/29/17 [ Rx] Pantoprazole [Protonix] 40 mg PO AC-BRKFST #30 tab 05/29/17 [Rx] Sennosides [Senokot] 8.6 mg PO BID PRN #60 tab 05/29/17 [Rx] predniSONE 10 mg PO DIRECTED #30 tab 05/29/17 [Rx] Follow up Appointment(s)/Referral(s): Raphael Egan MD [Primary Care Provider] - 06/02/17 12:30 pm Tanmay Dave MD [STAFF PHYSICIAN] - 06/11/17 1:00 pm Margarita Nichole MD [STAFF PHYSICIAN] - 1 Week (Office will call to make appointment) [facility], [NON-STAFF] - Ambulatory/Diagnostic Orders: Prothrombin Time INR [LAB.AMB] Time Frame: 06/01/17, Location: Determined By Patient Activity/Diet/Wound Care/Special Instructions: Confirm cardiology follow-up appointment per to discharge. Diet"Coumadin diet" Activity: Limited until follow up Discharge Disposition: HOME SELF-CARE
== END 2017-05-29 14:23 | disposition home or self-care (01) | DRG 871 ==
LOC: EC 16:06 → 4MS4W 19:12 → 6ICU 05-23 01:07 → 6SEL 05-23 19:17
PROVIDERS: ADMIT Family Medicine; ATTEND Family Medicine
PROC: 0T9B70Z Drainage of Bladder with Drainage Device, Via Natural or Artificial Opening (ICD-10-PCS; principal; 2017-05-23)
DX: A41.50 Gram-negative sepsis, unspecified (principal); J96.01 Acute respiratory failure with hypoxia; I50.33 Acute on chronic diastolic (congestive) heart failure; E87.2 Acidosis; J18.9 Pneumonia, unspecified organism; F11.20 Opioid dependence, uncomplicated; I27.2 Other secondary pulmonary hypertension; I11.0 Hypertensive heart disease with heart failure; J44.0 Chronic obstructive pulmonary disease with (acute) lower respiratory infection; J44.1 Chronic obstructive pulmonary disease with (acute) exacerbation; I48.1 Persistent atrial fibrillation; I69.354 Hemiplegia and hemiparesis following cerebral infarction affecting left non-dominant side; I48.2 Chronic atrial fibrillation; I08.1 Rheumatic disorders of both mitral and tricuspid valves; G89.29 Other chronic pain; M54.9 Dorsalgia, unspecified; F32.9 Major depressive disorder, single episode, unspecified; T38.0X5A Adverse effect of glucocorticoids and synthetic analogues, initial encounter; T45.515A Adverse effect of anticoagulants, initial encounter; F17.200 Nicotine dependence, unspecified, uncomplicated; Z71.3 Dietary counseling and surveillance; Z88.1 Allergy status to other antibiotic agents; Z88.2 Allergy status to sulfonamides; Z86.19 Personal history of other infectious and parasitic diseases; Z87.01 Personal history of pneumonia (recurrent); Z90.49 Acquired absence of other specified parts of digestive tract; Z79.899 Other long term (current) drug therapy; Z79.01 Long term (current) use of anticoagulants; Z82.49 Family history of ischemic heart disease and other diseases of the circulatory system; Z87.74 Personal history of (corrected) congenital malformations of heart and circulatory system; Z71.6 Tobacco abuse counseling; Z51.81 Encounter for therapeutic drug level monitoring; Z87.39 Personal history of other diseases of the musculoskeletal system and connective tissue
CPT/HCPCS: 36415; 71010; 71020; 72100; 77063; 80048; 80053; 80162; 81001; 82550; 82553; 82803; 83036; 83605; 83735; 84100; 84484; 85025; 85610; 85730; 87040; 87070; 87077; 87086; 87186; 87205; 87449; 93005; 93306; 94640; 94644; 94660; 94760; 96361; 96374; 96375; 99285

== ENCOUNTER → 2017-05-29 | Outpatient (CLI) | payer MEDICARE, BC ==
--- NOTE | 2017-06-01 10:54 | MM ---
Reason for exam: screening (asymptomatic). Last mammogram was performed 1 year and 2 months ago. History: Patient is postmenopausal. Took hormonal contraceptives for 1 year beginning at age 20. Physical Findings: A clinical breast exam by your physician is recommended on an annual basis and results should be correlated with mammographic findings. MG 3D Screening Mammo W/Cad Bilateral CC and MLO view(s) were taken. Prior study comparison: April 02, 2016, bilateral MG 3d screening mammo w/cad. March 08, 2013, bilateral digital screening mammo w/CAD. March 20, 2011, bilateral digital screening mammo w/CAD. The breast tissue is heterogeneously dense. This may lower the sensitivity of mammography. No significant changes when compared with prior studies. ASSESSMENT: Benign, BI-RAD 2 RECOMMENDATION: Routine screening mammogram of both breasts in 1 year.
== END | disposition home or self-care (01) ==
LOC: RADMAMWWP 14:17
PROVIDERS: ATTEND Family Medicine
DX: Z12.31 Encounter for screening mammogram for malignant neoplasm of breast (principal); Z80.3 Family history of malignant neoplasm of breast
CPT/HCPCS: 77063; G0202

== ENCOUNTER 2017-07-04 13:55 | Inpatient (IN) | payer MEDICARE, BC ==
[2017-07-04] MEDS ORDERED: ALBUTEROL NEBULIZED 2.5 MG/3 ML INHALATION STA (14:08)
[2017-07-04] MEDS ORDERED: DEXAMETHASONE SOD PHOSPHATE 10 MG/ML 1 ML VIAL IV STA (14:08)
[2017-07-04] MEDS ORDERED: ACETAMINOPHEN TAB 500 MG TAB PO STA (14:20)
[2017-07-04] MEDS ORDERED: DILTIAZEM 125 MG in SODIUM CHLORIDE 0.9% 100 ML IV ONE (14:27)
--- NOTE | 2017-07-04 14:27 | ED ---
General Adult HPI - General Chief complaint: Shortness of Breath Stated complaint: ANN Time Seen by Provider: 07/04/17 14:00 Source: patient, EMS, RN notes reviewed, old records reviewed Mode of arrival: EMS - History of Present Illness Initial comments: 61-year-old female with history COPD, atrial fibrillation on Coumadin, congestive heart failure, and current tobacco smoker presents with 2 days of worsening cough and dyspnea. Patient has had subjective fever and chills. She was recently admitted for pneumonia. States her cough has been productive. She also complains of some intermittent chest tightness. She does have chest pain which is worse with cough. Denies any radiating symptoms. Patient also complains of some abdominal fullness, she states she believes she may be , however she states she has had a tubal ligation and is postmenopausal. Patient does report lower extremity swelling over the past several days. - Related Data Home Medications Medication Instructions Recorded Confirmed Digoxin [Lanoxin] 125 mcg PO DAILY 05/22/17 07/04/17 Loratadine [Claritin] 10 mg PO DAILY 05/22/17 07/04/17 Temazepam [Restoril] 30 mg PO HS 05/22/17 07/04/17 Warfarin [Coumadin] 2 mg PO HS 05/22/17 07/04/17 oxyCODONE-APAP 10-325MG [Percocet 1 tab PO Q4H PRN 05/22/17 07/04/17 10-325 mg] L.acidoph,Paracasei, B.lactis 1 cap PO DAILY 07/04/17 07/04/17 [Probiotic] Previous Rx's Medication Instructions Recorded ALPRAZolam [Xanax] 0.25 mg PO TID PRN #20 tab 05/29/17 Budesonide-Formot 160-4.5 Mcg 2 puff INHALATION RT-BID #1 inh 05/29/17 [Symbicort 160-4.5 Mcg Inhaler] Escitalopram [Lexapro] 10 mg PO DAILY #30 05/29/17 Furosemide [Lasix] 40 mg PO DAILY #0 05/29/17 Ipratropium-Albuterol Nebulize 3 ml INHALATION RT-QID #120 neb 05/29/17 [Duoneb 0.5 mg-3 mg/3 ml Soln] Metoprolol Succinate (ER) [Toprol 25 mg PO DAILY #30 tab 05/29/17 XL] Nicotine 14Mg/24Hr Patch [Habitrol] 1 patch TRANSDERM DAILY #30 patch 05/29/17 Pantoprazole [Protonix] 40 mg PO AC-BRKFST #30 tab 05/29/17 Sennosides [Senokot] 8.6 mg PO BID PRN #60 tab 05/29/17 Allergies Allergy/AdvReac Type Severity Reaction Status Date / Time ciprofloxacin [From Cipro] Allergy Rash/Hives Verified 07/04/17 14:49 Sulfa (Sulfonamide Allergy Rash/Hives Verified 07/04/17 14:49 Antibiotics) Review of Systems ROS Statement: Those systems with pertinent positive or pertinent negative responses have been documented in the HPI. ROS Other: All systems not noted in ROS Statement are negative. Past Medical History Past Medical History: Heart Failure, CVA/TIA, Hypertension Additional Past Medical History / Comment(s): COPD, chronic atrial fibrillation , chronic back pain, CVA/multiple TIA, and issues weakness and shuffling of bilateral feet due to previous stroke, CHF, valvular heart disease-possibly Mitral valve stenosis post valvuloplasty (2012), ASD closure, depression, previous pneumonias 2011 and 2015 History of Any Multi-Drug Resistant Organisms: None Reported Past Surgical History: Cholecystectomy Additional Past Surgical History / Comment(s): ankle surgery (right ankle), Bilateral hand surgery- Carap Tunnel. D'C for miscarriage. Past Anesthesia/Blood Transfusion Reactions: No Reported Reaction Past Psychological History: No Psychological Hx Reported Smoking Status: Current every day smoker Past Alcohol Use History: None Reported Past Drug Use History: None Reported - Past Family History Mother Family Medical History: No Reported History Father Additional Family Medical History / Comment(s): heart failure, from heart attack at 74 General Exam General appearance: alert, in distress Head exam: Present: atraumatic, normocephalic Eye exam: Present: normal appearance ENT exam: Present: normal exam, mucous membranes dry Neck exam: Present: normal inspection. Absent: tenderness, meningismus Respiratory exam: Present: respiratory distress, wheezes, rhonchi, accessory muscle use, decreased breath sounds, prolonged expiratory Cardiovascular Exam: Present: tachycardia, irregular rhythm GI/Abdominal exam: Present: soft. Absent: distended, tenderness, guarding, rebound Extremities exam: Present: normal capillary refill, pedal edema (Trace) Neurological exam: Present: alert, oriented X3, CN II-XII intact. Absent: motor sensory deficit Psychiatric exam: Present: normal affect, normal mood Skin exam: Present: warm, dry, intact. Absent: cyanosis, diaphoretic Course Vital Signs 07/04/17 07/04/17 07/04/17 14:00 15:02 15:24 Temperature 101.9 F H Pulse Rate 122 H 122 H Respiratory 117 H 26 H Rate Blood Pressure 148/70 146/80 O2 Sat by Pulse 95 91 L Oximetry 07/04/17 07/04/17 07/04/17 15:46 15:50 15:52 Temperature 101.5 F H Pulse Rate 123 H 107 H Respiratory 26 H Rate Blood Pressure 120/74 O2 Sat by Pulse 92 L Oximetry - Reevaluation(s) Reevaluation #1: 07/04/17 17:07 Patient's R rate improves with Cardizem drip, breathing improves with albuterol Atrovent and steroids. EKG Findings - EKG Comments: EKG Findings:: EKG shows atrial fibrillation with rapid ventricular response, there is rightward axis, ventricular rate 1:30, castration 74, QTC 456, no ST segment elevation or depression Medical Decision Making - Medical Decision Making 61-year-old female presenting with dyspnea and cough. She is found to be in A. fib with RVR, ventricular rate 1:30 to 150. Patient is in severe respiratory distress, decreased breath sounds, and extremely wheeze, diffuse rhonchi. Patient had recent diagnosis of pneumonia. Repeat chest x-ray does show right lower lobe pneumonia. Patient is febrile. She is started on antibiotics for healthcare associated pneumonia. She is treated with Cardizem regarding her atrial fibrillation with rapid ventricular response. INR is subtherapeutic at 1.3. She is started on heparin drip. Potassium is 3.2 and is replaced. Troponin is elevated at 0.042, this will be trended. Diagnosis: Healthcare associated pneumonia, A. fib with RVR, troponin elevation likely demand ischemia, hypokalemia - Lab Data Result diagrams: 07/04/17 15:07 07/04/17 15:07 Lab Results 07/04/17 07/04/17 07/04/17 Range/Units 15:07 15:07 15:07 WBC 5.1 (3.8-10.6) k/uL RBC 3.90 (3.80-5.40) m/uL Hgb 12.0 D (11.4-16.0) gm/dL Hct 37.4 (34.0-46.0) % MCV 96.1 (80.0-100.0) fL MCH 30.9 (25.0-35.0) pg MCHC 32.2 (31.0-37.0) g/dL RDW 16.5 H (11.5-15.5) % Plt Count 201 (150-450) k/uL Neutrophils % 77 % Lymphocytes % 12 % Monocytes % 7 % Eosinophils % 0 % Basophils % 1 % Neutrophils # 3.9 (1.3-7.7) k/uL Lymphocytes # 0.6 L (1.0-4.8) k/uL Monocytes # 0.4 (0-1.0) k/uL Eosinophils # 0.0 (0-0.7) k/uL Basophils # 0.0 (0-0.2) k/uL Anisocytosis Slight PT (9.0-12.0) sec INR (<1.2) APTT (22.0-30.0) sec VBG pH (7.31-7.41) VBG pCO2 (37-51) mmHg VBG HCO3 (24-28) mmol/L Sodium 139 (137-145) mmol/L Potassium 3.2 L (3.5-5.1) mmol/L Chloride 105 (98-107) mmol/L Carbon Dioxide 22 (22-30) mmol/L Anion Gap 12 mmol/L BUN 7 (7-17) mg/dL Creatinine 0.70 (0.52-1.04) mg/dL Est GFR (MDRD) Af Amer >60 (>60 ml/min/1.73 sqM) Est GFR (MDRD) Non-Af >60 (>60 ml/min/1.73 sqM) Glucose 103 H (74-99) mg/dL Plasma Lactic Acid Ulises (0.7-2.0) mmol/L Calcium 8.5 (8.4-10.2) mg/dL Magnesium 1.8 (1.6-2.3) mg/dL Total Bilirubin 0.8 (0.2-1.3) mg/dL AST 42 H (14-36) U/L ALT 35 (9-52) U/L Alkaline Phosphatase 89 (38-126) U/L Total Creatine Kinase 90 (30-135) U/L CK-MB (CK-2) 1.3 (0.0-2.4) ng/mL CK-MB (CK-2) Rel Index 1.4 Troponin I 0.042 H* (0.000-0.034) ng/mL NT-Pro-B Natriuret Pep pg/mL Total Protein 6.1 L (6.3-8.2) g/dL Albumin 3.4 L (3.5-5.0) g/dL Lipase 59 (23-300) U/L HCG, Quant 6.3 mIU/mL Stool Occult Blood (Negative) 07/04/17 07/04/17 07/04/17 Range/Units 15:07 15:07 15:07 WBC (3.8-10.6) k/uL RBC (3.80-5.40) m/uL Hgb (11.4-16.0) gm/dL Hct (34.0-46.0) % MCV (80.0-100.0) fL MCH (25.0-35.0) pg MCHC (31.0-37.0) g/dL RDW (11.5-15.5) % Plt Count (150-450) k/uL Neutrophils % % Lymphocytes % % Monocytes % % Eosinophils % % Basophils % % Neutrophils # (1.3-7.7) k/uL Lymphocytes # (1.0-4.8) k/uL Monocytes # (0-1.0) k/uL Eosinophils # (0-0.7) k/uL Basophils # (0-0.2) k/uL Anisocytosis PT 12.6 H (9.0-12.0) sec INR 1.3 H (<1.2) APTT 24.8 (22.0-30.0) sec VBG pH (7.31-7.41) VBG pCO2 (37-51) mmHg VBG HCO3 (24-28) mmol/L Sodium (137-145) mmol/L Potassium (3.5-5.1) mmol/L Chloride (98-107) mmol/L Carbon Dioxide (22-30) mmol/L Anion Gap mmol/L BUN (7-17) mg/dL Creatinine (0.52-1.04) mg/dL Est GFR (MDRD) Af Amer (>60 ml/min/1.73 sqM) Est GFR (MDRD) Non-Af (>60 ml/min/1.73 sqM) Glucose (74-99) mg/dL Plasma Lactic Acid Ulises 2.5 H* (0.7-2.0) mmol/L Calcium (8.4-10.2) mg/dL Magnesium (1.6-2.3) mg/dL Total Bilirubin (0.2-1.3) mg/dL AST (14-36) U/L ALT (9-52) U/L Alkaline Phosphatase (38-126) U/L Total Creatine Kinase (30-135) U/L CK-MB (CK-2) (0.0-2.4) ng/mL CK-MB (CK-2) Rel Index Troponin I (0.000-0.034) ng/mL NT-Pro-B Natriuret Pep 5460 pg/mL Total Protein (6.3-8.2) g/dL Albumin (3.5-5.0) g/dL Lipase (23-300) U/L HCG, Quant mIU/mL Stool Occult Blood (Negative) 07/04/17 07/04/17 Range/Units 15:07 15:46 WBC (3.8-10.6) k/uL RBC (3.80-5.40) m/uL Hgb (11.4-16.0) gm/dL Hct (34.0-46.0) % MCV (80.0-100.0) fL MCH (25.0-35.0) pg MCHC (31.0-37.0) g/dL RDW (11.5-15.5) % Plt Count (150-450) k/uL Neutrophils % % Lymphocytes % % Monocytes % % Eosinophils % % Basophils % % Neutrophils # (1.3-7.7) k/uL Lymphocytes # (1.0-4.8) k/uL Monocytes # (0-1.0) k/uL Eosinophils # (0-0.7) k/uL Basophils # (0-0.2) k/uL Anisocytosis PT (9.0-12.0) sec INR (<1.2) APTT (22.0-30.0) sec VBG pH 7.29 L (7.31-7.41) VBG pCO2 49 (37-51) mmHg VBG HCO3 23 L (24-28) mmol/L Sodium (137-145) mmol/L Potassium (3.5-5.1) mmol/L Chloride (98-107) mmol/L Carbon Dioxide (22-30) mmol/L Anion Gap mmol/L BUN (7-17) mg/dL Creatinine (0.52-1.04) mg/dL Est GFR (MDRD) Af Amer (>60 ml/min/1.73 sqM) Est GFR (MDRD) Non-Af (>60 ml/min/1.73 sqM) Glucose (74-99) mg/dL Plasma Lactic Acid Ulises (0.7-2.0) mmol/L Calcium (8.4-10.2) mg/dL Magnesium (1.6-2.3) mg/dL Total Bilirubin (0.2-1.3) mg/dL AST (14-36) U/L ALT (9-52) U/L Alkaline Phosphatase (38-126) U/L Total Creatine Kinase (30-135) U/L CK-MB (CK-2) (0.0-2.4) ng/mL CK-MB (CK-2) Rel Index Troponin I (0.000-0.034) ng/mL NT-Pro-B Natriuret Pep pg/mL Total Protein (6.3-8.2) g/dL Albumin (3.5-5.0) g/dL Lipase (23-300) U/L HCG, Quant mIU/mL Stool Occult Blood Negative (Negative) Critical Care Time Critical Care Time: Yes Total Critical Care Time: 35 Disposition Clinical Impression: Acute exacerbation of chronic obstructive airways disease, HCAP (healthcare- associated pneumonia), Atrial fibrillation with rapid ventricular response Disposition: ADMITTED IP TO THIS [facility] Condition: Serious Referrals: Raphael Egan MD [Primary Care Provider] - 1-2 days Decision to Admit Reason: Admit from EC Decision Date: 07/04/17 Decision Time: 16:45
[2017-07-04] MEDS ORDERED: CEFEPIME 2 GM in SODIUM CHLORIDE 0.9% 50 ML IVPB STA (15:07)
[2017-07-04] MEDS ORDERED: IV VANCOMYCIN PER PHARMACY 1 EACH MISC MISCELLANE PRN (15:07)
[2017-07-04] MEDS ORDERED: VANCOMYCIN 1,250 MG in SODIUM CHLORIDE 0.9% 250 ML IVPB STA (15:10)
[2017-07-04 15:17] LABS: Anisocytosis Slight; Basophils % (A) 1 %; CH 32.2; CHCM 33.8; Eosinophils % (A) 0 %; HCT 37.4 % (34.0-46.0); HDW 3.32; Luc % (Auto) 2; Lymphocytes # (A) 0.6 k/uL (1.0-4.8); Lymphocytes % (A) 12 %; MCH 30.9 pg (25.0-35.0); MCHC 32.2 g/dL (31.0-37.0); MCV 96.1 fL (80.0-100.0); Mean Platelet Volume 8.9; Monocytes # (A) 0.4 k/uL (0-1.0); Monocytes % (A) 7 %; Neutrophils # (A) 3.9 k/uL (1.3-7.7); Neutrophils % (A) 77 %; RDW 16.5 % (11.5-15.5); VBG PH 7.29 (7.31-7.41); WBC 5.1 k/uL (3.8-10.6); WBC (Perox) 5.56
[2017-07-04 15:26] LABS: ALT 35 U/L (9-52); AST 42 U/L (14-36); Alkaline Phosphatase 89 U/L (38-126); Anion Gap 12 mmol/L; Blood Urea Nitrogen 7 mg/dL (7-17); Calcium 8.5 mg/dL (8.4-10.2); Carbon Dioxide 22 mmol/L (22-30); Chloride 105 mmol/L (98-107); Glucose 103 mg/dL (74-99); Magnesium 1.8 mg/dL (1.6-2.3); Non-African American GFR(MDRD) >60 (>60 ml/min/1.73 sqM); Potassium 3.2 mmol/L (3.5-5.1); Sodium 139 mmol/L (137-145); Total Bilirubin 0.8 mg/dL (0.2-1.3); Total Protein 6.1 g/dL (6.3-8.2)
[2017-07-04 15:27] LABS: INR 1.3 (<1.2); Partial Thromboplastin Time 24.8 sec (22.0-30.0); Prothrombin Time 12.6 sec (9.0-12.0)
[2017-07-04] MEDS ORDERED: SODIUM CHLORIDE 0.9% 250 ML IV SCH (15:45)
[2017-07-04] MEDS: SODIUM CHLORIDE 0.9% 1,000 ML IV SCH (15:50)
[2017-07-04 15:56] LABS: Creatine Kinase MB 1.3 ng/mL (0.0-2.4)
[2017-07-04] MEDS ORDERED: MORPHINE SULFATE 2 MG/ML SYRINGE IVP STA (15:57)
[2017-07-04 16:05] LABS: Troponin I 0.042 ng/mL (0.000-0.034)
[2017-07-04] MEDS ORDERED: HEPARIN SODIUM,PORCINE 5,000 UNIT/ML 1 ML VIAL IV ONE (16:23)
[2017-07-04] MEDS ORDERED: HEPARIN SODIUM,PORCINE 5,000 UNIT/ML 1 ML VIAL IV PRN (16:23)
[2017-07-04] MEDS: POTASSIUM CHLORIDE 10 MEQ, LIDOCAINE 2% INJ 10 MG in SODIUM CHLORIDE 0.9% 100 ML IVPB SCH ×4 (16:51→20:47)
[2017-07-04] MEDS ORDERED: MORPHINE SULFATE 2 MG/ML SYRINGE IV PRN (17:03)
[2017-07-04] MEDS ORDERED: ONDANSETRON 4 MG/2 ML VIAL IVP PRN (17:03)
[2017-07-04] MEDS ORDERED: IPRATROPIUM-ALBUTEROL 3 ML NEB INHALATION PRN (17:03)
[2017-07-04] MEDS ORDERED: NALOXONE 0.4 MG/ML 1 ML VIAL IV PRN (17:03)
[2017-07-04] MEDS ORDERED: ACETAMINOPHEN TAB 325 MG TAB PO PRN (17:03)
--- NOTE | 2017-07-04 17:09 | XR ---
EXAMINATION TYPE: XR chest 1V portable DATE OF EXAM: 07/04/2017 Comparison: 06/30/2017 Clinical History: 61-year-old female chest pain Findings: Heart remains mild to moderately enlarged. Diffuse interstitial prominence and hyperinflation. Bands of probable scarring are present in the mid to lower lungs. Prominence to the pulmonary vasculature. Impression: Moderate cardiomegaly and extensive interstitial changes which appear to be in part chronic. Correlat e to exclude mild CHF, possible superimposed on COPD. Severe bronchitis or interstitial pneumonitis a re additional considerations.
[2017-07-04] MEDS: HEPARIN SODIUM,PORCINE/D5W PMX 25,000 UNIT in DEXTROSE/WATER 1 500ML.BAG IV SCH (17:45)
[2017-07-04] MEDS: methylPREDNISolone SOD SUCCI 125 MG/2 ML VIAL IV SCH (18:54)
[2017-07-04 22:06] LABS: Troponin I 0.031 ng/mL (0.000-0.034)
[2017-07-04] MEDS: oxyCODONE-APAP 10-325MG 1 EACH TAB PO PRN (22:17)
[2017-07-04] MEDS: ALPRAZolam 0.25 MG TAB PO PRN (22:17)
[2017-07-04] MEDS: FUROSEMIDE 40 MG TAB PO SCH (22:18)
[2017-07-05] MEDS: CEFEPIME 2 GM in SODIUM CHLORIDE 0.9% 50 ML IVPB SCH ×3 (00:33→17:08)
[2017-07-05] MEDS: methylPREDNISolone SOD SUCCI 125 MG/2 ML VIAL IV SCH ×4 (00:35→18:43)
[2017-07-05] MEDS: oxyCODONE-APAP 10-325MG 1 EACH TAB PO PRN ×5 (00:52→21:34)
[2017-07-05 03:03] LABS: Basophils % (A) 0 %; CH 31.3; CHCM 32.6; Eosinophils % (A) 0 %; HCT 35.2 % (34.0-46.0); HDW 3.59; HGB 11.1 gm/dL (11.4-16.0); Hypochromasia Slight; Luc # (Auto) 0.05; Luc % (Auto) 2; Lymphocytes # (A) 0.4 k/uL (1.0-4.8); Lymphocytes % (A) 15 %; MCH 30.7 pg (25.0-35.0); MCHC 31.6 g/dL (31.0-37.0); MCV 97.2 fL (80.0-100.0); Mean Platelet Volume 7.9; Monocytes # (A) 0.1 k/uL (0-1.0); Monocytes % (A) 3 %; Neutrophils # (A) 2.2 k/uL (1.3-7.7); Neutrophils % (A) 80 %; Poikilocytosis Slight; RBC 3.63 m/uL (3.80-5.40); RDW 15.6 % (11.5-15.5); WBC 2.8 k/uL (3.8-10.6); WBC (Perox) 2.72
[2017-07-05 03:16] LABS: ALT 39 U/L (9-52); AST 37 U/L (14-36); Alkaline Phosphatase 85 U/L (38-126); Anion Gap 11 mmol/L; Blood Urea Nitrogen 7 mg/dL (7-17); Carbon Dioxide 18 mmol/L (22-30); Chloride 109 mmol/L (98-107); Glucose 218 mg/dL (74-99); Non-African American GFR(MDRD) >60 (>60 ml/min/1.73 sqM); Potassium 3.6 mmol/L (3.5-5.1); Sodium 138 mmol/L (137-145); Total Bilirubin 0.6 mg/dL (0.2-1.3); Total Protein 5.4 g/dL (6.3-8.2)
[2017-07-05 03:37] LABS: Troponin I 0.019 ng/mL (0.000-0.034)
[2017-07-05 03:48] LABS: Creatine Kinase MB 2.6 ng/mL (0.0-2.4)
[2017-07-05] MEDS: SODIUM CHLORIDE 0.9% 1,000 ML IV SCH (04:26)
[2017-07-05] MEDS: VANCOMYCIN 1,250 MG in SODIUM CHLORIDE 0.9% 250 ML IVPB SCH ×2 (05:42→18:44)
[2017-07-05] MEDS: guaiFENesin-DM 100-10MG/5ML 10 ML CUP PO PRN ×2 (05:42→18:44)
[2017-07-05 06:03] LABS: Glucose,Whole Blood 222 mg/dL (75-99)
[2017-07-05] MEDS: INSULIN LISPRO (humaLOG) 300 UNIT/3 ML VIAL SQ SCH ×4 (06:48→21:35)
[2017-07-05] MEDS: FUROSEMIDE 40 MG TAB PO SCH (09:39)
[2017-07-05] MEDS: IPRATROPIUM-ALBUTEROL 3 ML NEB INHALATION SCH ×4 (09:52→21:38)
[2017-07-05 11:42] LABS: Glucose,Whole Blood 96 mg/dL (75-99)
[2017-07-05] MEDS ORDERED: SENNOSIDES 8.6 MG TAB PO PRN (12:04)
[2017-07-05] MEDS ORDERED: METOPROLOL SUCCINATE (ER) 25 MG TAB.ER.24H PO SCH (12:15)
--- NOTE | 2017-07-05 12:30 | P.CRDCN ---
History of Present Illness Consult date: 07/05/17 Requesting physician: Kayla Adorno Consult reason: atrial fibrillation Chief complaint: Shortness of breath with productive cough History of present illness: This is a 61-year-old female with history of hypertension, prior CVA, multiple TIAs, chronic persistent atrial fibrillation, COPD, rheumatic heart disease, hypertension, mitral valve stenosis with prior valvoplasty in 2013, prior ASD closure, depression. Patient also went a cardiac catheterization as well as transesophageal echocardiographic study, and was told that she will require a valve replacement. She also stated that her heart catheterization did not reveal any significant obstructive disease. She states that she needs to have several teeth fixed prior to the surgery and is waiting for insurance to kick in. who presented to the hospital with symptoms of progressively worsening shortness of breath with associated productive cough of yellow to green sputum and fever and chills at home. Blood pressure on arrival here 148/ 70, heart rate 120, temperature 101.9, 95% on 4 L of oxygen. White blood cell count on admission 5.1, 2.8 this morning, hemoglobin 12.0, 11.1 this morning, platelet count 201 on admission, 174 this morning. PH 7.2, HCO3 23, pCO2 49. Potassium on admission 3.2, 3.6 this morning. BUN 7, creatinine 0.5. INR 1.3. Troponin 0.042, 0.031. 0.019. BNP level 5460. Stool for occult blood negative. EKG on admission shows atrial fibrillation with a rapid ventricular response and occasional PVC. Chest x-ray shows moderate cardiomegaly and extensive interstitial changes which appear to be in part chronic. Correlate to exclude mild congestive heart failure, possible superimposed on COPD. Severe bronchitis or interstitial pneumonitis additional considerations. Patient is currently on IV heparin. She has also been initiated on IV antibiotics. On Cardizem drip at 5 mg per hour. Patient was taking 2 mg of Coumadin daily at home, INR subtherapeutic, we will give her 5 mg of Coumadin today. Continue IV heparin. Past Medical History Past Medical History: Atrial Fibrillation, Coronary Artery Disease (CAD), Heart Failure, CVA/TIA, Hypertension, Pneumonia Additional Past Medical History / Comment(s): COPD, chronic atrial fibrillation , chronic back pain, CVA/multiple TIA, and issues weakness and shuffling of bilateral feet due to previous stroke, CHF, valvular heart disease-possibly Mitral valve stenosis post valvuloplasty (2013), ASD closure, depression, previous pneumonias 2011 and 2016 History of Any Multi-Drug Resistant Organisms: None Reported Past Surgical History: Cholecystectomy, Heart Catheterization, Orthopedic Surgery, Tonsillectomy Additional Past Surgical History / Comment(s): ankle surgery (right ankle), Bilateral hand surgery- Carap Tunnel. D'C for miscarriage. Past Anesthesia/Blood Transfusion Reactions: No Reported Reaction Past Psychological History: Depression Additional Psychological History / Comment(s): Depression since 2013 due to her son overdosing on her pain medication. Smoking Status: Current every day smoker Past Alcohol Use History: None Reported Past Drug Use History: None Reported - Past Family History Mother Family Medical History: No Reported History, Blood Disorder, Dementia Additional Family Medical History / Comment(s): at age 84 from dementia and blood infection Father Family Medical History: Congestive Heart Failure (CHF), Myocardial Infarction ( MS) Additional Family Medical History / Comment(s): heart failure, from heart attack at 74 in 1999 Sister(s) Family Medical History: No Reported History Additional Family Medical History / Comment(s): from car accident Medications and Allergies Home Medications Medication Instructions Recorded Confirmed Type Digoxin [Lanoxin] 125 mcg PO DAILY 05/22/17 07/04/17 History Loratadine [Claritin] 10 mg PO DAILY 05/22/17 07/04/17 History Temazepam [Restoril] 30 mg PO HS 05/22/17 07/04/17 History Warfarin [Coumadin] 2 mg PO HS 05/22/17 07/04/17 History oxyCODONE-APAP 10-325MG [Percocet 1 tab PO Q4H PRN 05/22/17 07/04/17 History 10-325 mg] ALPRAZolam [Xanax] 0.25 mg PO TID PRN #20 tab 05/29/17 07/04/17 Rx Budesonide-Formot 160-4.5 Mcg 2 puff INHALATION RT-BID #1 inh 05/29/17 07/04/17 Rx [Symbicort 160-4.5 Mcg Inhaler] Escitalopram [Lexapro] 10 mg PO DAILY #30 05/29/17 07/04/17 Rx Furosemide [Lasix] 40 mg PO DAILY #0 05/29/17 07/04/17 Rx Ipratropium-Albuterol Nebulize 3 ml INHALATION RT-QID #120 neb 05/29/17 Rx [Duoneb 0.5 mg-3 mg/3 ml Soln] Metoprolol Succinate (ER) [Toprol 25 mg PO DAILY #30 tab 05/29/17 07/04/17 Rx XL] Nicotine 14Mg/24Hr Patch [Habitrol] 1 patch TRANSDERM DAILY #30 patch 05/29/17 07/04/17 Rx Pantoprazole [Protonix] 40 mg PO AC-BRKFST #30 tab 05/29/17 07/04/17 Rx Sennosides [Senokot] 8.6 mg PO BID PRN #60 tab 05/29/17 07/04/17 Rx L.acidoph,Paracasei, B.lactis 1 cap PO DAILY 07/04/17 07/04/17 History [Probiotic] Allergies Allergy/AdvReac Type Severity Reaction Status Date / Time ciprofloxacin [From Cipro] Allergy Rash/Hives Verified 07/04/17 14:49 Sulfa (Sulfonamide Allergy Rash/Hives Verified 07/04/17 14:49 Antibiotics) Physical Exam Vitals: Vital Signs Temp Pulse Pulse Resp BP BP Pulse Ox 07/05/17 11:34 96 07/05/17 08:00 98.3 F 78 20 98/58 92 L 07/05/17 04:00 97.3 F L 52 L 16 99/55 92 L 07/05/17 00:00 97.1 F L 77 19 126/76 97 07/04/17 21:54 108 H 07/04/17 21:44 104 H 07/04/17 20:00 97.0 F L 100 19 111/71 90 L 07/04/17 17:36 97.0 F L 100 18 111/71 90 L 07/04/17 17:22 98.8 F 116 H 24 156/95 91 L 07/04/17 15:52 101.5 F H 07/04/17 15:50 107 H 26 H 120/74 92 L 07/04/17 15:46 123 H 07/04/17 15:24 122 H 07/04/17 15:02 122 H 26 H 146/80 91 L 07/04/17 14:00 101.9 F H 117 H 148/70 95 Intake and Output 07/04/17 07/05/17 07/05/17 22:59 06:59 14:59 Intake Total 1143.385 Output Total 1600 0 Balance -456.615 0 Intake: Intake, IV Titration 1143.385 Amount Cefepime 2 gm In Sodium 50 Chloride 0.9% 50 ml @ 100 mls/hr IVPB Q8HR [facility] Rx# :[id number] Diltiazem 125 mg In 35 Sodium Chloride 0.9% 100 ml @ 5 MG/HR 5 mls/hr IV .Q24H ONE Rx#:[id number] Heparin Sodium,Porcine/ 133.385 D5w Pmx 25,000 unit In Dextrose/Water 1 500ml. bag @ 12 UNITS/KG/HR 15. 45 mls/hr IV .Q24H [facility] Rx #:[id number] Potassium Chloride 10 meq 400 Lidocaine 2% Inj 10 mg In Sodium Chloride 0.9% 100 ml @ 100 mls/hr IVPB Q1HR [facility] Rx#:[id number] Sodium Chloride 0.9% 1, 525 000 ml @ 75 mls/hr IV . [id number] [facility] Rx#:[id number] Output: Urine 1600 0 Straight 800 Other: Voiding Method Bedside Commode Bedside Commode Bedside Commode # Voids 1 Weight 64.41 kg 69.5 kg PHYSICAL EXAMINATION: HEENT: Head is atraumatic, normocephalic. Pupils equal, round. Neck is supple. There is no elevated jugular venous pressure. HEART EXAMINATION: Heart S1 and S2 irregularly irregular, diastolic murmur heard , systolic murmur also heard. CHEST EXAMINATION: Lungs reveal crackles bilaterally with expiratory wheezes bilaterally. ABDOMEN: Soft, nontender. Bowel sounds are heard. No organomegaly noted. EXTREMITIES: 2+ peripheral pulses with no evidence of peripheral edema and no calf tenderness noted. NEUROLOGIC patient is awake, alert and oriented -3. . Results 07/05/17 02:44 07/05/17 02:44 Cardiac Enzymes 07/04/17 07/04/17 07/04/17 Range/Units 15:07 15:07 21:03 AST 42 H (14-36) U/L CK-MB (CK-2) 1.3 2.0 (0.0-2.4) ng/mL Troponin I 0.042 H* 0.031 (0.000-0.034) ng/mL 07/05/17 07/05/17 Range/Units 02:44 02:44 AST 37 H (14-36) U/L CK-MB (CK-2) 2.6 H* (0.0-2.4) ng/mL Troponin I 0.019 (0.000-0.034) ng/mL Coagulation 07/04/17 07/04/17 07/05/17 Range/Units 15:07 23:34 08:16 PT 12.6 H (9.0-12.0) sec APTT 24.8 37.4 H 49.1 H (22.0-30.0) sec CBC 07/04/17 07/05/17 Range/Units 15:07 02:44 WBC 5.1 2.8 L (3.8-10.6) k/uL RBC 3.90 3.63 L (3.80-5.40) m/uL Hgb 12.0 D 11.1 L (11.4-16.0) gm/dL Hct 37.4 35.2 (34.0-46.0) % Plt Count 201 174 (150-450) k/uL Comprehensive Metabolic Panel 07/04/17 07/05/17 Range/Units 15:07 02:44 Sodium 139 138 (137-145) mmol/L Potassium 3.2 L 3.6 (3.5-5.1) mmol/L Chloride 105 109 H (98-107) mmol/L Carbon Dioxide 22 18 L (22-30) mmol/L BUN 7 7 (7-17) mg/dL Creatinine 0.70 0.50 L (0.52-1.04) mg/dL Glucose 103 H 218 H (74-99) mg/dL Calcium 8.5 8.0 L (8.4-10.2) mg/dL AST 42 H 37 H (14-36) U/L ALT 35 39 (9-52) U/L Alkaline Phosphatase 89 85 (38-126) U/L Total Protein 6.1 L 5.4 L (6.3-8.2) g/dL Albumin 3.4 L 2.9 L (3.5-5.0) g/dL Current Medications Generic Name Dose Route Start Last Admin Trade Name Freq PRN Reason Stop Dose Admin Acetaminophen 650 mg 07/04/17 17:03 Tylenol Tab PO Q6HR PRN Mild Pain or Fever > 100.5 Albuterol/Ipratropium 3 ml 07/04/17 17:03 07/04/17 21:44 Duoneb 0.5 Mg-3 Mg/3 Ml Soln INHALATION 3 ml RT-Q4H PRN Administration Shortness Of Breath Or Wheezing Albuterol/Ipratropium 3 ml 07/05/17 08:00 07/05/17 11:27 Duoneb 0.5 Mg-3 Mg/3 Ml Soln INHALATION 3 ml RT-QID JUAN A Administration Alprazolam 0.25 mg 07/04/17 21:30 07/04/17 22:17 Xanax PO 0.25 mg TID PRN Administration Anxiety Furosemide 40 mg 07/04/17 21:30 07/05/17 09:39 Lasix PO 40 mg DAILY JUAN A Administration Guaifenesin/Dextromethorphan 10 ml 07/05/17 01:11 07/05/17 05:42 Robitussin Dm PO 10 ml Q6H PRN Administration Cough Heparin Sodium (Porcine) 0 unit 07/04/17 16:23 Heparin IV PER PROTOCOL PRN Low PTT Protocol Diltiazem HCl 125 mg/ Sodium 125 mls @ 5 mls/hr 07/04/17 14:27 07/04/17 15:02 Chloride IV 07/05/17 14:26 5 mg/hr .Q24H ONE 5 mls/hr Protocol Administration 5 MG/HR Cefepime HCl 2 gm/ Sodium 50 mls @ 100 mls/hr 07/05/17 00:00 07/05/17 09:40 Chloride IVPB 100 mls/hr Q8HR JUAN A Administration Vancomycin HCl 1,250 mg/ 250 mls @ 125 mls/hr 07/05/17 06:00 07/05/17 05:42 Sodium Chloride IVPB 125 mls/hr Q12H JUAN A Administration Sodium Chloride 1,000 mls @ 75 mls/hr 07/04/17 15:45 07/05/17 04:26 Saline 0.9% IV Not Given .[id number] JUAN A Heparin Sodium/Dextrose 25,000 500 mls @ 15.45 mls/hr 07/04/17 16:30 02:23 unit/ IV Solution IV 15 units/kg/hr .Q24H [facility] 19.32 mls/hr Protocol Titration 12 UNITS/KG/HR Insulin Human Lispro 0 unit 07/05/17 07:30 07/05/17 06:48 Humalog SQ 7 unit ACHS JUAN A Administration Protocol Methylprednisolone Sodium Succinate 60 mg 07/04/17 18:00 07/05/17 05:42 Solu-Medrol IV 60 mg Q6HR JUAN A Administration Morphine Sulfate 4 mg 07/04/17 17:03 Morphine Sulfate (Inj) IV Q4HR PRN Severe Pain Naloxone HCl 0.2 mg 07/04/17 17:03 Narcan IV Q2M PRN Opioid Reversal Ondansetron HCl 4 mg 07/04/17 17:03 Zofran IVP Q8HR PRN Nausea And Vomiting Oxycodone/Acetaminophen 1 each 07/04/17 21:30 07/05/17 09:39 Percocet 10-325 PO 1 each Q4H PRN Administration Pain Intake and Output 07/04/17 07/05/17 07/05/17 22:59 06:59 14:59 Intake Total 1143.385 Output Total 1600 0 Balance -456.615 0 Intake: Intake, IV Titration 1143.385 Amount Cefepime 2 gm In Sodium 50 Chloride 0.9% 50 ml @ 100 mls/hr IVPB Q8HR [facility] Rx# :[id number] Diltiazem 125 mg In 35 Sodium Chloride 0.9% 100 ml @ 5 MG/HR 5 mls/hr IV .Q24H ONE Rx#:[id number] Heparin Sodium,Porcine/ 133.385 D5w Pmx 25,000 unit In Dextrose/Water 1 500ml. bag @ 12 UNITS/KG/HR 15. 45 mls/hr IV .Q24H [facility] Rx #:[id number] Potassium Chloride 10 meq 400 Lidocaine 2% Inj 10 mg In Sodium Chloride 0.9% 100 ml @ 100 mls/hr IVPB Q1HR [facility] Rx#:[id number] Sodium Chloride 0.9% 1, 525 000 ml @ 75 mls/hr IV . [id number] [facility] Rx#:[id number] Output: Urine 1600 0 Straight 800 Other: Voiding Method Bedside Commode Bedside Commode Bedside Commode # Voids 1 Weight 64.41 kg 69.5 kg 07/05/17 02:44 07/05/17 02:44 EKG Interpretations (text) EKG shows atrial fibrillation with nonspecific ST-T wave changes and occasional PVC Assessment and Plan Plan: Assessment and plan #1 symptoms of progressively worsening shortness of breath with associated productive cough of yellow and green sputum, positive associated fever and chills. Evidence of pneumonia on chest x-ray, currently on IV antibiotics. Temperature 101.9 on admission #2 mild congestive heart failure, diastolic in nature, acute and chronic #3 nicotine dependence #4 COPD #5 chronic persistent atrial fibrillation, on Coumadin for anticoagulation, subtherapeutic INR #6 prior CVA and TIAs #7 hypertension #8 history of ASD closure #9 prior mitral valvoplasty, patient did undergo a cardiac catheterization and JACLYN, this was performed in June 2016 and revealed evidence of severe degree of mitral stenosis and moderate degree of tricuspid regurg. Patient is scheduled to undergo mitral valve surgery once her teeth have been fixed, she's also awaiting health insurance coverage. Plan We'll give the patient 5 mg of Coumadin today, continue heparin until her INR is therapeutic. We will also give the patient some IV Lasix, increase dose of beta tay to 50 mg daily and discontinue the IV Cardizem drip. We will also obtain blood cultures 3 check daily lytes BUN and creatinine, daily weights and intake and output. Further recommendations to follow. DNP note has been reviewed, I agree with a documented findings and plan of care. Patient was seen and examined.
[2017-07-05 13:09] LABS: Appearance,Urine Clear (Clear); Bilirubin,Urine Negative (Negative); Glucose,Urine (UA) Negative (Negative); Ketones,Urine Negative (Negative); Leukocyte Esterase,Urine Negative (Negative); Nitrite,Urine Negative (Negative); Protein,Urine Negative (Negative); Specific Gravity,Urine 1.007 (1.001-1.035); UA Billing (MACRO vs. MICRO) CHEM; Urobilinogen,Urine <2.0 mg/dL (<2.0)
--- NOTE | 2017-07-05 13:40 | P.HPIM ---
History of Present Illness 61-year-old female came in with comments of shortness of breath cough fever has been going on for 3-4 days patient is found to have pneumonia, patient does have diffuse infiltrate concerns of congestive heart failure as well chronic diastolic dysfunction although patient had fever and leukopenia because of which patient was started on treatment with transfer antibiotics cefepime and vancomycin which I believe is appropriate patient denied any dysuria, urinalysis is negative cardiology a valid the patient and they started patient on IV Lasix. IV fluids will be discontinued. Patient does have history of COPD was comparing of shortness of breath when she came in denied any significant orthopnea PND patient is on systemic steroids and nasal treatments patient does have expiratory wheezing patient can use to actively smoke patient was apparently smoking even the hospital with oxygen. Patient does wear 2 L of oxygen at home. Patient was complaining of cough with greenish sputum production Review of Systems REVIEW OF SYSTEMS: CONSTITUTIONAL: No fever, no malaise, no fatigue. HEENT: No recent visual problems or hearing problems. Denied any sore throat. CARDIOVASCULAR: No chest pain, orthopnea, PND, no palpitations, no syncope. PULMONARY: As mentioned in HPI GASTROINTESTINAL: No diarrhea, no nausea, no vomiting, no abdominal pain. Normoactive bowel sounds. NEUROLOGICAL: No headaches, no weakness, no numbness. HEMATOLOGICAL: Denies any bleeding or petechiae. GENITOURINARY: Denies any burning micturition, frequency, or urgency. MUSCULOSKELETAL/RHEUMATOLOGICAL: Denies any joint pain, swelling, or any muscle pain. ENDOCRINE: Denies any polyuria or polydipsia. The rest of the 14-point review of systems is negative. Past Medical History Past Medical History: Atrial Fibrillation, Coronary Artery Disease (CAD), Heart Failure, CVA/TIA, Hypertension, Pneumonia Additional Past Medical History / Comment(s): COPD, chronic atrial fibrillation , chronic back pain, CVA/multiple TIA, and issues weakness and shuffling of bilateral feet due to previous stroke, CHF, valvular heart disease-possibly Mitral valve stenosis post valvuloplasty (2012), ASD closure, depression, previous pneumonias 2011 and 2015 History of Any Multi-Drug Resistant Organisms: None Reported Past Surgical History: Cholecystectomy, Heart Catheterization, Orthopedic Surgery, Tonsillectomy Additional Past Surgical History / Comment(s): ankle surgery (right ankle), Bilateral hand surgery- Carap Tunnel. D'C for miscarriage. Past Anesthesia/Blood Transfusion Reactions: No Reported Reaction Past Psychological History: Depression Additional Psychological History / Comment(s): Depression since 2013 due to her son overdosing on her pain medication. Smoking Status: Current every day smoker Past Alcohol Use History: None Reported Past Drug Use History: None Reported - Past Family History Mother Family Medical History: No Reported History, Blood Disorder, Dementia Additional Family Medical History / Comment(s): at age 84 from dementia and blood infection Father Family Medical History: Congestive Heart Failure (CHF), Myocardial Infarction ( ND) Additional Family Medical History / Comment(s): heart failure, from heart attack at 74 in 1999 Sister(s) Family Medical History: No Reported History Additional Family Medical History / Comment(s): from car accident Medications and Allergies Home Medications Medication Instructions Recorded Confirmed Type Digoxin [Lanoxin] 125 mcg PO DAILY 05/22/17 07/04/17 History Loratadine [Claritin] 10 mg PO DAILY 05/22/17 07/04/17 History Temazepam [Restoril] 30 mg PO HS 05/22/17 07/04/17 History Warfarin [Coumadin] 2 mg PO HS 05/22/17 07/04/17 History oxyCODONE-APAP 10-325MG [Percocet 1 tab PO Q4H PRN 05/22/17 07/04/17 History 10-325 mg] ALPRAZolam [Xanax] 0.25 mg PO TID PRN #20 tab 05/29/17 07/04/17 Rx Budesonide-Formot 160-4.5 Mcg 2 puff INHALATION RT-BID #1 inh 05/29/17 07/04/17 Rx [Symbicort 160-4.5 Mcg Inhaler] Escitalopram [Lexapro] 10 mg PO DAILY #30 05/29/17 07/04/17 Rx Furosemide [Lasix] 40 mg PO DAILY #0 05/29/17 07/04/17 Rx Ipratropium-Albuterol Nebulize 3 ml INHALATION RT-QID #120 neb 05/29/17 Rx [Duoneb 0.5 mg-3 mg/3 ml Soln] Metoprolol Succinate (ER) [Toprol 25 mg PO DAILY #30 tab 05/29/17 07/04/17 Rx XL] Nicotine 14Mg/24Hr Patch [Habitrol] 1 patch TRANSDERM DAILY #30 patch 05/29/17 07/04/17 Rx Pantoprazole [Protonix] 40 mg PO AC-BRKFST #30 tab 05/29/17 07/04/17 Rx Sennosides [Senokot] 8.6 mg PO BID PRN #60 tab 05/29/17 07/04/17 Rx L.acidoph,Paracasei, B.lactis 1 cap PO DAILY 07/04/17 07/04/17 History [Probiotic] Allergies Allergy/AdvReac Type Severity Reaction Status Date / Time ciprofloxacin [From Cipro] Allergy Rash/Hives Verified 07/04/17 14:49 Sulfa (Sulfonamide Allergy Rash/Hives Verified 07/04/17 14:49 Antibiotics) Physical Exam Vitals: Vital Signs Temp Pulse Pulse Resp BP BP Pulse Ox 07/05/17 11:46 96 07/05/17 11:34 96 07/05/17 08:00 98.3 F 78 20 98/58 92 L 07/05/17 04:00 97.3 F L 52 L 16 99/55 92 L 07/05/17 00:00 97.1 F L 77 19 126/76 97 07/04/17 21:54 108 H 07/04/17 21:44 104 H 07/04/17 20:00 97.0 F L 100 19 111/71 90 L 07/04/17 17:36 97.0 F L 100 18 111/71 90 L 07/04/17 17:22 98.8 F 116 H 24 156/95 91 L 07/04/17 15:52 101.5 F H 07/04/17 15:50 107 H 26 H 120/74 92 L 07/04/17 15:46 123 H 07/04/17 15:24 122 H 07/04/17 15:02 122 H 26 H 146/80 91 L 07/04/17 14:00 101.9 F H 117 H 148/70 95 Intake and Output 07/04/17 07/05/17 07/05/17 22:59 06:59 14:59 Intake Total 1143.385 240 Output Total 1600 300 Balance -456.615 -60 Intake: Intake, IV Titration 1143.385 Amount Cefepime 2 gm In Sodium 50 Chloride 0.9% 50 ml @ 100 mls/hr IVPB Q8HR [facility] Rx# :[id number] Diltiazem 125 mg In 35 Sodium Chloride 0.9% 100 ml @ 5 MG/HR 5 mls/hr IV .Q24H [facility] Rx#:[id number] Heparin Sodium,Porcine/ 133.385 D5w Pmx 25,000 unit In Dextrose/Water 1 500ml. bag @ 12 UNITS/KG/HR 15. 45 mls/hr IV .Q24H [facility] Rx #:[id number] Potassium Chloride 10 meq 400 Lidocaine 2% Inj 10 mg In Sodium Chloride 0.9% 100 ml @ 100 mls/hr IVPB Q1HR [facility] Rx#:[id number] Sodium Chloride 0.9% 1, 525 000 ml @ 75 mls/hr IV . [id number] [facility] Rx#:[id number] Oral 240 Output: Urine 1600 300 Straight 800 Other: Voiding Method Bedside Commode Bedside Commode Bedside Commode # Voids 1 # Bowel Movements 0 Weight 64.41 kg 69.5 kg PHYSICAL EXAMINATION: GENERAL: The patient is alert and oriented x3, not in any acute distress. Well developed, well nourished. HEENT: Pupils are round and equally reacting to light. EOMI. No scleral icterus. No conjunctival pallor. Normocephalic, atraumatic. No pharyngeal erythema. No thyromegaly. CARDIOVASCULAR: S1 and S2 present. No murmurs, rubs, or gallops. PULMONARY: Expiratory wheezing and bibasilar crackles were appreciated. ABDOMEN: Soft, nontender, nondistended, normoactive bowel sounds. No palpable organomegaly. MUSCULOSKELETAL: No joint swelling or deformity. EXTREMITIES: No cyanosis, clubbing, or pedal edema. NEUROLOGICAL: Gross neurological examination did not reveal any focal deficits. SKIN: No rashes. Results CBC & Chem 7: 07/05/17 02:44 07/05/17 02:44 Labs: Abnormal Lab Results - Last 24 Hours (Table) 07/04/17 07/04/17 07/04/17 Range/Units 15:07 15:07 15:07 WBC (3.8-10.6) k/uL RBC (3.80-5.40) m/uL Hgb (11.4-16.0) gm/dL RDW 16.5 H (11.5-15.5) % Lymphocytes # 0.6 L (1.0-4.8) k/uL PT (9.0-12.0) sec INR (<1.2) APTT (22.0-30.0) sec VBG pH (7.31-7.41) VBG HCO3 (24-28) mmol/L Potassium 3.2 L (3.5-5.1) mmol/L Chloride (98-107) mmol/L Carbon Dioxide (22-30) mmol/L Creatinine (0.52-1.04) mg/dL Glucose 103 H (74-99) mg/dL POC Glucose (mg/dL) (75-99) mg/dL Plasma Lactic Acid Ulises (0.7-2.0) mmol/L Calcium (8.4-10.2) mg/dL AST 42 H (14-36) U/L CK-MB (CK-2) (0.0-2.4) ng/mL Troponin I 0.042 H* (0.000-0.034) ng/mL Total Protein 6.1 L (6.3-8.2) g/dL Albumin 3.4 L (3.5-5.0) g/dL TSH (0.465-4.680) mIU/L 07/04/17 07/04/17 07/04/17 Range/Units 15:07 15:07 15:07 WBC (3.8-10.6) k/uL RBC (3.80-5.40) m/uL Hgb (11.4-16.0) gm/dL RDW (11.5-15.5) % Lymphocytes # (1.0-4.8) k/uL PT 12.6 H (9.0-12.0) sec INR 1.3 H (<1.2) APTT (22.0-30.0) sec VBG pH 7.29 L (7.31-7.41) VBG HCO3 23 L (24-28) mmol/L Potassium (3.5-5.1) mmol/L Chloride (98-107) mmol/L Carbon Dioxide (22-30) mmol/L Creatinine (0.52-1.04) mg/dL Glucose (74-99) mg/dL POC Glucose (mg/dL) (75-99) mg/dL Plasma Lactic Acid Ulises 2.5 H* (0.7-2.0) mmol/L Calcium (8.4-10.2) mg/dL AST (14-36) U/L CK-MB (CK-2) (0.0-2.4) ng/mL Troponin I (0.000-0.034) ng/mL Total Protein (6.3-8.2) g/dL Albumin (3.5-5.0) g/dL TSH (0.465-4.680) mIU/L 07/04/17 07/05/17 07/05/17 Range/Units 23:34 02:44 02:44 WBC 2.8 L (3.8-10.6) k/uL RBC 3.63 L (3.80-5.40) m/uL Hgb 11.1 L (11.4-16.0) gm/dL RDW 15.6 H (11.5-15.5) % Lymphocytes # 0.4 L (1.0-4.8) k/uL PT (9.0-12.0) sec INR (<1.2) APTT 37.4 H (22.0-30.0) sec VBG pH (7.31-7.41) VBG HCO3 (24-28) mmol/L Potassium (3.5-5.1) mmol/L Chloride (98-107) mmol/L Carbon Dioxide (22-30) mmol/L Creatinine (0.52-1.04) mg/dL Glucose (74-99) mg/dL POC Glucose (mg/dL) (75-99) mg/dL Plasma Lactic Acid Ulises (0.7-2.0) mmol/L Calcium (8.4-10.2) mg/dL AST (14-36) U/L CK-MB (CK-2) 2.6 H* (0.0-2.4) ng/mL Troponin I (0.000-0.034) ng/mL Total Protein (6.3-8.2) g/dL Albumin (3.5-5.0) g/dL TSH (0.465-4.680) mIU/L 07/05/17 07/05/17 07/05/17 Range/Units 02:44 02:44 05:59 WBC (3.8-10.6) k/uL RBC (3.80-5.40) m/uL Hgb (11.4-16.0) gm/dL RDW (11.5-15.5) % Lymphocytes # (1.0-4.8) k/uL PT (9.0-12.0) sec INR (<1.2) APTT (22.0-30.0) sec VBG pH (7.31-7.41) VBG HCO3 (24-28) mmol/L Potassium (3.5-5.1) mmol/L Chloride 109 H (98-107) mmol/L Carbon Dioxide 18 L (22-30) mmol/L Creatinine 0.50 L (0.52-1.04) mg/dL Glucose 218 H (74-99) mg/dL POC Glucose (mg/dL) 222 H (75-99) mg/dL Plasma Lactic Acid Ulises (0.7-2.0) mmol/L Calcium 8.0 L (8.4-10.2) mg/dL AST 37 H (14-36) U/L CK-MB (CK-2) (0.0-2.4) ng/mL Troponin I (0.000-0.034) ng/mL Total Protein 5.4 L (6.3-8.2) g/dL Albumin 2.9 L (3.5-5.0) g/dL TSH 0.270 L (0.465-4.680) mIU/L 07/05/17 Range/Units 08:16 WBC (3.8-10.6) k/uL RBC (3.80-5.40) m/uL Hgb (11.4-16.0) gm/dL RDW (11.5-15.5) % Lymphocytes # (1.0-4.8) k/uL PT (9.0-12.0) sec INR (<1.2) APTT 49.1 H (22.0-30.0) sec VBG pH (7.31-7.41) VBG HCO3 (24-28) mmol/L Potassium (3.5-5.1) mmol/L Chloride (98-107) mmol/L Carbon Dioxide (22-30) mmol/L Creatinine (0.52-1.04) mg/dL Glucose (74-99) mg/dL POC Glucose (mg/dL) (75-99) mg/dL Plasma Lactic Acid Ulises (0.7-2.0) mmol/L Calcium (8.4-10.2) mg/dL AST (14-36) U/L CK-MB (CK-2) (0.0-2.4) ng/mL Troponin I (0.000-0.034) ng/mL Total Protein (6.3-8.2) g/dL Albumin (3.5-5.0) g/dL TSH (0.465-4.680) mIU/L Thrombosis Risk Factor Assmnt - Choose All That Apply Any of the Below Risk Factors Present?: Yes Each Factor Represents 1 point: Abnormal pulmonary function (COPD), Age 41-60 years, Swollen legs (current) Other Risk Factors: No Other congenital or acquired thrombophilia - If yes, enter type in comment: No Thrombosis Risk Factor Assessment Total Risk Factor Score: 3 Thrombosis Risk Factor Assessment Level: Moderate Risk Assessment and Plan Plan: #1 sepsis: Possibility of healthcare associated pneumonia patient on broad spectrum antibiotics, obtain blood cultures and sputum cultures. #2 acute on chronic hypercapnic respiratory failure secondary to COPD exacerbation continue with systemic steroids inhalational treatments. #3 possible congestive heart failure chronic diastolic dysfunction with acute exacerbation patient is on IV Lasix #4 atrial fibrillation: Presently rate controlled resume her rate control medications and patient was started back on Coumadin patient missed a couple doses of Coumadin because of which her INR is subtherapeutic and repeat INR tomorrow. #5 continued nicotine dependence: Counseling was provided #6 prior CVAs and TIAs next and #1 hypertension For above-mentioned chronic medical problems patient will be continued on appropriate medications from home
[2017-07-05 16:45] LABS: Glucose,Whole Blood 197 mg/dL (75-99)
[2017-07-05] MEDS: ALPRAZolam 0.25 MG TAB PO PRN (17:08)
[2017-07-05] MEDS: HEPARIN SODIUM,PORCINE/D5W PMX 25,000 UNIT in DEXTROSE/WATER 1 500ML.BAG IV SCH ×2 (17:09→21:29)
[2017-07-05] MEDS: FUROSEMIDE 10 MG/ML 4 ML VIAL IV SCH (18:49)
[2017-07-05 20:45] LABS: Glucose,Whole Blood 166 mg/dL (75-99)
[2017-07-05] MEDS ORDERED: WARFARIN 2 MG TAB PO SCH (21:00)
[2017-07-05] MEDS: TEMAZEPAM 30 MG CAP PO SCH (21:34)
[2017-07-05] MEDS: SYMBICORT 160-4.5 MCG INHALER INHALATION SCH (21:38)
[2017-07-06] MEDS: CEFEPIME 2 GM in SODIUM CHLORIDE 0.9% 50 ML IVPB SCH ×3 (00:56→16:17)
[2017-07-06] MEDS: methylPREDNISolone SOD SUCCI 125 MG/2 ML VIAL IV SCH ×4 (00:56→17:34)
[2017-07-06] MEDS: oxyCODONE-APAP 10-325MG 1 EACH TAB PO PRN ×3 (04:33→22:05)
[2017-07-06] MEDS: guaiFENesin-DM 100-10MG/5ML 10 ML CUP PO PRN ×2 (05:21→22:15)
[2017-07-06] MEDS: FUROSEMIDE 10 MG/ML 4 ML VIAL IV SCH ×2 (05:21→17:34)
[2017-07-06] MEDS: VANCOMYCIN 1,250 MG in SODIUM CHLORIDE 0.9% 250 ML IVPB SCH ×2 (05:21→17:33)
[2017-07-06 06:01] LABS: Basophils % (A) 0 %; CH 31.2; Eosinophils % (A) 0 %; HCT 36.4 % (34.0-46.0); HDW 3.53; HGB 11.9 gm/dL (11.4-16.0); Hypochromasia Slight; Luc # (Auto) 0.17; Luc % (Auto) 1; Lymphocytes # (A) 0.7 k/uL (1.0-4.8); Lymphocytes % (A) 5 %; MCH 31.1 pg (25.0-35.0); MCHC 32.7 g/dL (31.0-37.0); MCV 95.4 fL (80.0-100.0); Mean Platelet Volume 8.4; Monocytes # (A) 0.5 k/uL (0-1.0); Monocytes % (A) 4 %; Neutrophils # (A) 11.3 k/uL (1.3-7.7); Neutrophils % (A) 90 %; Poikilocytosis Slight; RBC 3.82 m/uL (3.80-5.40); RDW 15.7 % (11.5-15.5); WBC 12.6 k/uL (3.8-10.6); WBC (Perox) 12.99
[2017-07-06 06:04] LABS: Glucose,Whole Blood 162 mg/dL (75-99)
[2017-07-06 06:11] LABS: Anion Gap 13 mmol/L; Blood Urea Nitrogen 15 mg/dL (7-17); Carbon Dioxide 22 mmol/L (22-30); Chloride 103 mmol/L (98-107); Glucose 154 mg/dL (74-99); Non-African American GFR(MDRD) >60 (>60 ml/min/1.73 sqM); Potassium 3.4 mmol/L (3.5-5.1); Sodium 138 mmol/L (137-145)
[2017-07-06 06:16] LABS: INR 1.5 (<1.2); Partial Thromboplastin Time 30.1 sec (22.0-30.0); Prothrombin Time 14.2 sec (9.0-12.0)
[2017-07-06] MEDS: PANTOPRAZOLE 40 MG TABLET PO SCH (06:50)
[2017-07-06] MEDS: INSULIN LISPRO (humaLOG) 300 UNIT/3 ML VIAL SQ SCH ×4 (06:50→22:05)
[2017-07-06] MEDS: SYMBICORT 160-4.5 MCG INHALER INHALATION SCH ×2 (08:20→19:47)
[2017-07-06] MEDS: IPRATROPIUM-ALBUTEROL 3 ML NEB INHALATION SCH ×4 (08:20→19:47)
[2017-07-06] MEDS ORDERED: METOPROLOL SUCCINATE (ER) 50 MG TAB.ER.24H PO SCH (09:00)
[2017-07-06] MEDS: ESCITALOPRAM 10 MG TAB PO SCH (09:26)
[2017-07-06] MEDS: DIGOXIN 125 MCG TAB PO SCH (09:26)
[2017-07-06] MEDS: NICOTINE 14MG/24HR PATCH TRANSDERM SCH (09:27)
--- NOTE | 2017-07-06 10:51 | ECHOF ---
Referral Reason:afib MEASUREMENTS -------- HEIGHT: 167.6 cm WEIGHT: 70.8 kg BP: 128/76 RVIDd: 3.0 cm (< 3.3) IVSd: 1.0 cm (0.6 - 1.1) LVIDd: 4.1 cm (3.9 - 5.3) LVPWd: 1.0 cm (0.6 - 1.1) IVSs: 1.5 cm LVIDs: 3.0 cm LVPWs: 1.5 cm LA Diam: 5.6 cm (2.7 - 3.8) LAESV Index (A-L): 76.53 ml/m Ao Diam: 2.7 cm (2.0 - 3.7) AV Cusp: 1.6 cm (1.5 - 2.6) AV maxP.12 mmHg AV meanP.20 mmHg AR PHT: 213 ms RAP: 5.00 mmHg RVSP: 71.99 mmHg FINDINGS -------- Atrial fibrillation. This was a technically good study. The left ventricular size is normal. Left ventricular wall thickness is normal. Overall left ventricular systolic function is normal with, an EF between 55 - 60 %. There is septal flattening in diastole and systole which is consistent with right ventricular pressure and volume overload. The right ventricle is normal in size. LA is severely dilated >40 ml/m2 The right atrium is normal in size. There is an interatrial closure device in place without evidence of shunt. Aortic valve is trileaflet and is mildly thickened. The mitral valve leaflets are moderately thickened. Moderate mitral annular calcification present. Severe mitral regurgitation is present. The peak and mean MV gradients are 28.46mmHg 15.21mmHg as measured by doppler. Severe mitral stenosis. Severe tricuspid regurgitation present. There is severe pulmonary hypertension. The right ventricular systolic pressure, as measured by Doppler, is 71.99mmHg. Trace/mild (physiologic) pulmonic regurgitation. The aortic root size is normal. The inferior vena cava is mildly dilated. There is no pericardial effusion. CONCLUSIONS -------- 1. Atrial fibrillation. 2. There is an interatrial closure device in place without evidence of shunt. 3. Aortic valve is trileaflet and is mildly thickened. 4. The mitral valve leaflets are moderately thickened. 5. Moderate mitral annular calcification present. 6. Severe mitral regurgitation is present. 7. The peak and mean MV gradients are 28.46mmHg 15.21mmHg as measured by doppler. 8. Severe mitral stenosis. 9. Severe tricuspid regurgitation present. 10. There is severe pulmonary hypertension. 11. The right ventricular systolic pressure, as measured by Doppler, is 71.99mmHg. 12. This was a technically good study. 13. Trace/mild (physiologic) pulmonic regurgitation. 14. The aortic root size is normal. 15. The inferior vena cava is mildly dilated. 16. There is no pericardial effusion. 17. The left ventricular size is normal. 18. Left ventricular wall thickness is normal. 19. Overall left ventricular systolic function is normal with, an EF between 55 - 60 %. 20. There is septal flattening in diastole and systole which is consistent with right ventricular pressure and volume overload. 21. The right ventricle is normal in size. 22. LA is severely dilated >40 ml/m2 23. The right atrium is normal in size. [employer] SUPERVISOR: Wilma Warner RDCS
[2017-07-06 11:52] LABS: Glucose,Whole Blood 172 mg/dL (75-99)
--- NOTE | 2017-07-06 14:32 | PN ---
PROGRESS NOTE This patient is admitted with symptoms suggestive of acute bronchitis and underlying mild failure. Patient has a history of severe mitral stenosis and moderate to severe regurgitation. Left ventricular systolic function is normal. The patient's heart rate is remaining in the range of 90-120, first and second heart sounds are normal. There is a systolic murmur noted. Lungs examination reveals bilateral scattered wheezes. IMPRESSION: 1. This patient is admitted with acute respiratory distress and cough. The patient may have underlying mild heart failure. The patient has a severe mitral stenosis. 2. Atrial fibrillation with a moderately rapid ventricular response. I will increase the metoprolol to 50 mg in the morning and 25 mg in the evening. Continue the rest of the medications. INR still remains in the subtherapeutic range. MMODL / IJN: [id number] /
--- NOTE | 2017-07-06 14:49 | P.PN ---
Subjective 61-year-old female was admitted for COPD exacerbation has come associated pneumonia and mild can start failure exacerbation chronic diastolic dysfunction. Patient's EF is 50-55% with the mildly dilated inferior vena cava. Patient IV Lasix which probably can be switched to oral now. Patient is doing much better patient is not wearing oxygen wheezing completely resolved. Constitutional: Denied any fatigue denied any fever. Cardio vascular: denied any chest pain, palpitations Gastrointestinal denied any nausea vomiting Pulmonary: Denied any shortness of breath cough Neurologic denied any new focal deficits Objective - Vital Signs Vital signs: Vital Signs Temp 97.8 F 07/06/17 08:00 Pulse 98 07/06/17 12:00 Resp 18 07/06/17 12:00 BP 111/63 07/06/17 12:00 Pulse Ox 95 07/06/17 12:00 Intake & Output 07/05/17 07/06/17 07/06/17 18:59 06:59 18:59 Intake Total 240 956.615 557.386 Output Total 1100 450 Balance -860 956.615 107.386 Weight 69.5 kg 71 kg Intake: Intake, IV Titration 476.615 197.386 Amount Cefepime 2 gm In Sodium 50 Chloride 0.9% 50 ml @ 100 mls/hr IVPB Q8HR [facility] Rx# :[id number] Heparin Sodium,Porcine/ 366.615 197.386 D5w Pmx 25,000 unit In Dextrose/Water 1 500ml. bag @ 12 UNITS/KG/HR 15. 45 mls/hr IV .Q24H [facility] Rx #:[id number] Vancomycin 1,250 mg In 60 Sodium Chloride 0.9% 250 ml @ 125 mls/hr IVPB Q12H [facility] Rx#:[id number] Oral 240 480 360 Output: Urine 1100 450 Stool 0 0 Other: Voiding Method Bedside Commode Bedside Commode Bedside Commode # Voids 4 # Bowel Movements 0 1 - Exam PHYSICAL EXAMINATION: GENERAL: The patient is alert and oriented x3, not in any acute distress. Well developed, well nourished. HEENT: Pupils are round and equally reacting to light. EOMI. No scleral icterus. No conjunctival pallor. Normocephalic, atraumatic. No pharyngeal erythema. No thyromegaly. CARDIOVASCULAR: S1 and S2 present. No murmurs, rubs, or gallops. PULMONARY: Chest is clear to auscultation, no wheezing or crackles. ABDOMEN: Soft, nontender, nondistended, normoactive bowel sounds. No palpable organomegaly. MUSCULOSKELETAL: No joint swelling or deformity. EXTREMITIES: No cyanosis, clubbing, or pedal edema. NEUROLOGICAL: Gross neurological examination did not reveal any focal deficits. SKIN: No rashes. - Labs CBC & Chem 7: 07/06/17 05:28 07/06/17 05:28 Labs: Abnormal Lab Results - Last 24 Hours (Table) 07/05/17 07/05/17 07/06/17 Range/Units 16:20 20:44 05:28 WBC 12.6 H (3.8-10.6) k/uL RDW 15.7 H (11.5-15.5) % Neutrophils # 11.3 H (1.3-7.7) k/uL Lymphocytes # 0.7 L (1.0-4.8) k/uL PT (9.0-12.0) sec INR (<1.2) APTT (22.0-30.0) sec Potassium (3.5-5.1) mmol/L Glucose (74-99) mg/dL POC Glucose (mg/dL) 197 H 166 H (75-99) mg/dL 07/06/17 07/06/17 07/06/17 Range/Units 05:28 05:28 06:02 WBC (3.8-10.6) k/uL RDW (11.5-15.5) % Neutrophils # (1.3-7.7) k/uL Lymphocytes # (1.0-4.8) k/uL PT 14.2 H (9.0-12.0) sec INR 1.5 H (<1.2) APTT 30.1 H (22.0-30.0) sec Potassium 3.4 L (3.5-5.1) mmol/L Glucose 154 H (74-99) mg/dL POC Glucose (mg/dL) 162 H (75-99) mg/dL 07/06/17 Range/Units 11:32 WBC (3.8-10.6) k/uL RDW (11.5-15.5) % Neutrophils # (1.3-7.7) k/uL Lymphocytes # (1.0-4.8) k/uL PT (9.0-12.0) sec INR (<1.2) APTT (22.0-30.0) sec Potassium (3.5-5.1) mmol/L Glucose (74-99) mg/dL POC Glucose (mg/dL) 172 H (75-99) mg/dL Microbiology - Last 24 Hours (Table) 07/04/17 15:07 Blood Culture - Preliminary Blood No Growth after 24 hours Assessment and Plan Plan: #1 sepsis: Possibility of healthcare associated pneumonia patient on broad spectrum antibiotics, obtain blood cultures and sputum cultures.patient probably can be discharged on Augmentin for a week tomorrow #2 acute on chronic hypercapnic respiratory failure secondary to COPD exacerbation continue with systemic steroids inhalational treatments. #3 possible congestive heart failure chronic diastolic dysfunction with acute exacerbation patient is on IV Lasix, can be switched to oral Lasix with addition to cardiology #4 atrial fibrillation: Presently rate controlled resume her rate control medications and patient was started back on Coumadin patient missed a couple doses of Coumadin because of which her INR is subtherapeutic and repeat INR tomorrow. #5 continued nicotine dependence: Counseling was provided #6 prior CVAs and TIAs #7 hypertension For above-mentioned chronic medical problems patient will be continued on appropriate medications from home
[2017-07-06 17:23] LABS: Glucose,Whole Blood 126 mg/dL (75-99)
[2017-07-06] MEDS ORDERED: WARFARIN 5 MG TAB PO ONE (18:00)
[2017-07-06 21:05] LABS: Glucose,Whole Blood 130 mg/dL (75-99)
[2017-07-06] MEDS: TEMAZEPAM 30 MG CAP PO SCH (22:04)
[2017-07-06] MEDS: METOPROLOL SUCCINATE (ER) 25 MG TAB.ER.24H PO SCH (22:04)
[2017-07-06] MEDS: HEPARIN SODIUM,PORCINE/D5W PMX 25,000 UNIT in DEXTROSE/WATER 1 500ML.BAG IV SCH (22:15)
[2017-07-07] MEDS: CEFEPIME 2 GM in SODIUM CHLORIDE 0.9% 50 ML IVPB SCH ×4 (01:31→23:12)
[2017-07-07] MEDS: methylPREDNISolone SOD SUCCI 125 MG/2 ML VIAL IV SCH ×5 (01:32→23:12)
[2017-07-07] MEDS: oxyCODONE-APAP 10-325MG 1 EACH TAB PO PRN ×4 (03:13→21:57)
[2017-07-07 04:49] LABS: Basophils % (A) 0 %; CH 31.2; CHCM 32.8; Eosinophils % (A) 0 %; HCT 35.8 % (34.0-46.0); HDW 3.51; HGB 11.6 gm/dL (11.4-16.0); Hypochromasia Slight; Luc # (Auto) 0.38; Luc % (Auto) 3; Lymphocytes # (A) 0.8 k/uL (1.0-4.8); Lymphocytes % (A) 6 %; MCH 31.3 pg (25.0-35.0); MCHC 32.6 g/dL (31.0-37.0); Monocytes # (A) 0.6 k/uL (0-1.0); Monocytes % (A) 5 %; Neutrophils # (A) 11.4 k/uL (1.3-7.7); Neutrophils % (A) 86 %; Poikilocytosis Slight; RBC 3.73 m/uL (3.80-5.40); RDW 15.7 % (11.5-15.5); WBC 13.3 k/uL (3.8-10.6); WBC (Perox) 13.63
[2017-07-07 04:54] LABS: INR 2.7 (<1.2)
[2017-07-07] MEDS ORDERED: VANCOMYCIN TROUGH DUE 1 EACH MISC MISCELLANE ONE (05:00)
[2017-07-07] MEDS: FUROSEMIDE 10 MG/ML 4 ML VIAL IV SCH ×2 (06:04→16:59)
[2017-07-07] MEDS: VANCOMYCIN 1,000 MG in SODIUM CHLORIDE 0.9% 250 ML IVPB SCH ×2 (07:09→19:57)
[2017-07-07 07:21] LABS: Glucose,Whole Blood 144 mg/dL (75-99)
[2017-07-07] MEDS: NICOTINE 14MG/24HR PATCH TRANSDERM SCH (07:56)
[2017-07-07] MEDS: INSULIN LISPRO (humaLOG) 300 UNIT/3 ML VIAL SQ SCH ×4 (07:57→21:51)
[2017-07-07] MEDS: ESCITALOPRAM 10 MG TAB PO SCH (07:57)
[2017-07-07] MEDS: DIGOXIN 125 MCG TAB PO SCH (07:57)
[2017-07-07] MEDS: PANTOPRAZOLE 40 MG TABLET PO SCH (07:57)
[2017-07-07] MEDS: METOPROLOL SUCCINATE (ER) 50 MG TAB.ER.24H PO SCH (07:59)
[2017-07-07] MEDS ORDERED: METOPROLOL SUCCINATE (ER) 25 MG TAB.ER.24H PO SCH (09:00)
[2017-07-07] MEDS: IPRATROPIUM-ALBUTEROL 3 ML NEB INHALATION SCH ×4 (09:32→20:21)
[2017-07-07] MEDS: SYMBICORT 160-4.5 MCG INHALER INHALATION SCH ×2 (09:33→20:21)
[2017-07-07 11:29] LABS: Glucose,Whole Blood 151 mg/dL (75-99)
--- NOTE | 2017-07-07 12:20 | P.PN ---
Subjective Principal diagnosis: Patient resting in bed continues with scattered rhonchi and wheezing. States edema improving to lower extremities Objective - Vital Signs Vital signs: Vital Signs Temp 97.5 F L 07/07/17 07:00 Pulse 96 07/07/17 09:38 Resp 18 07/07/17 08:00 BP 106/82 07/07/17 07:00 Pulse Ox 93 L 07/07/17 07:00 Intake & Output 07/06/17 07/07/17 07/07/17 18:59 06:59 18:59 Intake Total 872.484 107.516 Output Total 850 400 Balance 22.484 -292.484 Intake: Intake, IV Titration 392.484 107.516 Amount Heparin Sodium,Porcine/ 392.484 107.516 D5w Pmx 25,000 unit In Dextrose/Water 1 500ml. bag @ 12 UNITS/KG/HR 15. 45 mls/hr IV .Q24H [facility] Rx #:[id number] Oral 480 0 Output: Urine 850 400 Stool 0 Other: Voiding Method Bedside Commode Toilet Toilet # Voids 2 # Bowel Movements 0 - Constitutional General appearance: Present: mild distress - EENT Eyes: Present: PERRLA Ears: bilateral: normal - Respiratory Respiratory: bilateral: rhonchi, wheezing - Cardiovascular Rhythm: irregularly irregular - Peripheral edema leg Peripheral Edema: bilateral: 1+ - Gastrointestinal General gastrointestinal: Present: soft - Integumentary Integumentary: Present: normal - Neurologic Neurologic: Present: CNII-XII intact - Musculoskeletal Musculoskeletal: Present: generalized weakness - Psychiatric Psychiatric: Present: A&O x's 3, appropriate affect, intact judgment & insight - Labs CBC & Chem 7: 07/07/17 04:31 07/06/17 05:28 Labs: Abnormal Lab Results - Last 24 Hours (Table) 07/06/17 07/06/17 07/06/17 Range/Units 14:49 17:00 21:01 WBC (3.8-10.6) k/uL RBC (3.80-5.40) m/uL RDW (11.5-15.5) % Neutrophils # (1.3-7.7) k/uL Lymphocytes # (1.0-4.8) k/uL PT (9.0-12.0) sec INR (<1.2) APTT 41.1 H (22.0-30.0) sec POC Glucose (mg/dL) 126 H 130 H (75-99) mg/dL 07/06/17 07/07/17 07/07/17 Range/Units 22:21 04:31 04:31 WBC 13.3 H (3.8-10.6) k/uL RBC 3.73 L (3.80-5.40) m/uL RDW 15.7 H (11.5-15.5) % Neutrophils # 11.4 H (1.3-7.7) k/uL Lymphocytes # 0.8 L (1.0-4.8) k/uL PT 26.0 H (9.0-12.0) sec INR 2.7 H (<1.2) APTT 57.6 H (22.0-30.0) sec POC Glucose (mg/dL) (75-99) mg/dL 07/07/17 07/07/17 Range/Units 07:01 11:06 WBC (3.8-10.6) k/uL RBC (3.80-5.40) m/uL RDW (11.5-15.5) % Neutrophils # (1.3-7.7) k/uL Lymphocytes # (1.0-4.8) k/uL PT (9.0-12.0) sec INR (<1.2) APTT (22.0-30.0) sec POC Glucose (mg/dL) 144 H 151 H (75-99) mg/dL Microbiology - Last 24 Hours (Table) 07/04/17 15:07 Blood Culture - Preliminary Blood No Growth after 48 hours 07/05/17 13:13 Blood Culture - Preliminary Blood No Growth after 24 hours - Imaging and Cardiology Chest x-ray: report reviewed Assessment and Plan Plan: Assessment Sepsis secondary to pneumonia Acute on chronic hypercapnic respiratory failure secondary to COPD exacerbation Chronic diastolic dysfunction pulmonary hypertension Chronic atrial fibrillation Nicotine dependence History of CVA/TIA Hypertension Severe mitral stenosis Plan Continue consultation with cardiology Consultation requested for Dr. Dave regarding pneumonia and COPD
--- NOTE | 2017-07-07 13:46 | P.PN ---
Subjective Progress Note Date: 07/07/17 Mrs Gordon is being seen today in follow-up. She follows regularly with Dr. Nichole as an outpatient. She was admitted with symptoms of acute bronchitis and underlying exacerbation of heart failure. She had severe lower extremity edema that is improving. She has been maintained on lasix 40 mg IV BID. She is -270 for diuresis and her weight has remained relatively the same. She has past medical history significant for mitral stenosis with previous balloon valvuloplasty, chronic persistent atrial fibrillation, pulmonary hypertension, prior ASD closure, rheumatic heart disease and chronic tobacco abuse. Upon exam she is seen sitting up in bed talking on her phone. She is in no acute distress. Her lower extremity edema is still evident but greatly improved. Objective - Vital Signs Vital signs: Vital Signs Temp 97.5 F L 07/07/17 07:00 Pulse 96 07/07/17 09:38 Resp 18 07/07/17 08:00 BP 106/82 07/07/17 07:00 Pulse Ox 93 L 07/07/17 07:00 Intake & Output 07/06/17 07/07/17 07/07/17 18:59 06:59 18:59 Intake Total 872.484 107.516 Output Total 850 400 Balance 22.484 -292.484 Intake: Intake, IV Titration 392.484 107.516 Amount Heparin Sodium,Porcine/ 392.484 107.516 D5w Pmx 25,000 unit In Dextrose/Water 1 500ml. bag @ 12 UNITS/KG/HR 15. 45 mls/hr IV .Q24H JUAN A Rx #:[id number] Oral 480 0 Output: Urine 850 400 Stool 0 Other: Voiding Method Bedside Commode Toilet Toilet # Voids 2 # Bowel Movements 0 - Exam GENERAL: Well-appearing, well-nourished and in no acute distress. NECK: Supple without JVD or thyromegaly. LUNGS: Respiration equal and unlabored. Diminished air entry. Bibasilar rales with faint expiratory wheeze. HEART: Irregular rate and rhythm with systolic ejection type murmur at the apex , rubs or gallops. S1 and S2 heard. Unable to hear diastolic mitral murmur secondary to wheezing. Will reassess tomorrow. EXTREMITIES: Normal range of motion, b/l lower extremity non-pitting edema. No clubbing or cyanosis. Peripheral pulses intact and strong. - Labs CBC & Chem 7: 07/07/17 04:31 07/06/17 05:28 Labs: Abnormal Lab Results - Last 24 Hours (Table) 07/06/17 07/06/17 07/06/17 Range/Units 11:32 14:49 17:00 WBC (3.8-10.6) k/uL RBC (3.80-5.40) m/uL RDW (11.5-15.5) % Neutrophils # (1.3-7.7) k/uL Lymphocytes # (1.0-4.8) k/uL PT (9.0-12.0) sec INR (<1.2) APTT 41.1 H (22.0-30.0) sec POC Glucose (mg/dL) 172 H 126 H (75-99) mg/dL 07/06/17 07/06/17 07/07/17 Range/Units 21:01 22:21 04:31 WBC 13.3 H (3.8-10.6) k/uL RBC 3.73 L (3.80-5.40) m/uL RDW 15.7 H (11.5-15.5) % Neutrophils # 11.4 H (1.3-7.7) k/uL Lymphocytes # 0.8 L (1.0-4.8) k/uL PT (9.0-12.0) sec INR (<1.2) APTT 57.6 H (22.0-30.0) sec POC Glucose (mg/dL) 130 H (75-99) mg/dL 07/07/17 07/07/17 Range/Units 04:31 07:01 WBC (3.8-10.6) k/uL RBC (3.80-5.40) m/uL RDW (11.5-15.5) % Neutrophils # (1.3-7.7) k/uL Lymphocytes # (1.0-4.8) k/uL PT 26.0 H (9.0-12.0) sec INR 2.7 H (<1.2) APTT (22.0-30.0) sec POC Glucose (mg/dL) 144 H (75-99) mg/dL Microbiology - Last 24 Hours (Table) 07/04/17 15:07 Blood Culture - Preliminary Blood No Growth after 48 hours 07/05/17 13:13 Blood Culture - Preliminary Blood No Growth after 24 hours Assessment and Plan Plan: ASSESSMENT 1. Acute on chronic diastolic heart failure 2. Chronic persistent atrial fibrillation on watermelon inspector anticoagulation 3. Mitral stenosis with prior balloon valvuloplasty 4. History of ASD closure 5. Chronic tobacco abuse 6. Pulmonary hypertension RSVP 71.99 mmHg PLAN INR therapeutic at 2.7, heparin drip can be discontinued. Continue with coumadin at 2 mg daily as was previously ordered. Continue with active diuresis with lasix 40 mg IV BID. Keep legs elevated while sitting. Increase ambulation and activity as tolerated. Nurse Practitioner note has been reviewed, I agree with a documented findings and plan of care. Patient was seen and examined.
[2017-07-07] MEDS: guaiFENesin-DM 100-10MG/5ML 10 ML CUP PO PRN (14:35)
--- NOTE | 2017-07-07 16:36 | P.CNPUL ---
History of Present Illness Consult date: 07/07/17 Requesting physician: Raphael Egan Reason for consult: COPD, pneumonia Chief complaint: Shortness of breath and productive cough History of present illness: This is a 61-year-old female with history of severe COPD, FEV1 is in the range of 57% at best, patient continues to smoke in spite of her COPD, she was last seen in my office about a week ago, and she was seen mostly for follow-up on her previous episode of pneumonia involving the right lower lobe and episode of exacerbation of COPD. Patient was doing quite well, clinically she recovered fully from her pneumonia, but her chest x-ray continued to show some postinflammatory changes in the right lower lobe. Patient did not require any further courses of antibiotics, and she was treated for a two-week period with Augmentin. On 07/04/2017, patient was readmitted with 1 day history of fever, cough, cough is productive with yellow phlegm, shortness of breath, and wheezing. Patient had a follow-up chest x-ray showing as a disease involving the right lower lobe, not clear whether this is a postinflammatory change or actually recurrent pneumonia involving the right lower lobe again. Patient was placed on antibiotics, bronchodilators, steroids, does not seem to be improving much over the last a few days. Hence this consult was initiated. I evaluated the patient, I felt that the patient needs to be bronchoscoped. However considering the patient is on Coumadin, will hold the Coumadin for the next few days, and I will tentatively planned bronchoscopy on Thursday of this week. In the meantime patient could be given Lovenox as a bridge, will replace Coumadin temporarily. Unfortunately, the patient continues to smoke in spite of her severe COPD and recurrent symptoms of possible right lower lobe pneumonia. Review of Systems 14 point review of systems were obtained, patient is mostly complaining of cough , fever , wheezing. No weight loss, no hemoptysis, no chest pain, remaining review of systems are negative unless stated in the HPI. Past Medical History Past Medical History: Atrial Fibrillation, Coronary Artery Disease (CAD), Heart Failure, CVA/TIA, Hypertension, Pneumonia Additional Past Medical History / Comment(s): COPD, chronic atrial fibrillation , chronic back pain, CVA/multiple TIA, and issues weakness and shuffling of bilateral feet due to previous stroke, CHF, valvular heart disease-possibly Mitral valve stenosis post valvuloplasty (2012), ASD closure, depression, previous pneumonias 2011 and 2015 History of Any Multi-Drug Resistant Organisms: None Reported Past Surgical History: Cholecystectomy, Heart Catheterization, Orthopedic Surgery, Tonsillectomy Additional Past Surgical History / Comment(s): ankle surgery (right ankle), Bilateral hand surgery- Carap Tunnel. D'C for miscarriage. Past Anesthesia/Blood Transfusion Reactions: No Reported Reaction Past Psychological History: Depression Additional Psychological History / Comment(s): Depression since 2013 due to her son overdosing on her pain medication. Smoking Status: Current every day smoker Past Alcohol Use History: None Reported Past Drug Use History: None Reported - Past Family History Mother Family Medical History: No Reported History, Blood Disorder, Dementia Additional Family Medical History / Comment(s): at age 84 from dementia and blood infection Father Family Medical History: Congestive Heart Failure (CHF), Myocardial Infarction ( MA) Additional Family Medical History / Comment(s): heart failure, from heart attack at 74 in 1999 Sister(s) Family Medical History: No Reported History Additional Family Medical History / Comment(s): from car accident Medications and Allergies Home Medications Medication Instructions Recorded Confirmed Type Digoxin [Lanoxin] 125 mcg PO DAILY 05/22/17 07/04/17 History Loratadine [Claritin] 10 mg PO DAILY 05/22/17 07/04/17 History Temazepam [Restoril] 30 mg PO HS 05/22/17 07/04/17 History Warfarin [Coumadin] 2 mg PO HS 05/22/17 07/04/17 History oxyCODONE-APAP 10-325MG [Percocet 1 tab PO Q4H PRN 05/22/17 07/04/17 History 10-325 mg] ALPRAZolam [Xanax] 0.25 mg PO TID PRN #20 tab 05/29/17 07/04/17 Rx Budesonide-Formot 160-4.5 Mcg 2 puff INHALATION RT-BID #1 inh 05/29/17 07/04/17 Rx [Symbicort 160-4.5 Mcg Inhaler] Escitalopram [Lexapro] 10 mg PO DAILY #30 05/29/17 07/04/17 Rx Furosemide [Lasix] 40 mg PO DAILY #0 05/29/17 07/04/17 Rx Ipratropium-Albuterol Nebulize 3 ml INHALATION RT-QID #120 neb 05/29/17 Rx [Duoneb 0.5 mg-3 mg/3 ml Soln] Metoprolol Succinate (ER) [Toprol 25 mg PO DAILY #30 tab 05/29/17 07/04/17 Rx XL] Nicotine 14Mg/24Hr Patch [Habitrol] 1 patch TRANSDERM DAILY #30 patch 05/29/17 07/04/17 Rx Pantoprazole [Protonix] 40 mg PO AC-BRKFST #30 tab 05/29/17 07/04/17 Rx Sennosides [Senokot] 8.6 mg PO BID PRN #60 tab 05/29/17 07/04/17 Rx L.acidoph,Paracasei, B.lactis 1 cap PO DAILY 07/04/17 07/04/17 History [Probiotic] Allergies Allergy/AdvReac Type Severity Reaction Status Date / Time ciprofloxacin [From Cipro] Allergy Rash/Hives Verified 07/04/17 14:49 Sulfa (Sulfonamide Allergy Rash/Hives Verified 07/04/17 14:49 Antibiotics) Physical Exam Vitals: Vital Signs Temp Pulse Pulse Resp BP BP Pulse Ox 07/07/17 16:10 98 07/07/17 15:26 89 20 07/07/17 14:20 97.9 F 89 20 110/78 94 L 07/07/17 13:18 100 07/07/17 13:06 100 07/07/17 09:38 96 07/07/17 09:26 92 07/07/17 08:00 98 18 07/07/17 07:00 97.5 F L 98 18 106/82 93 L 07/07/17 04:00 97.1 F L 81 18 112/62 90 L 07/07/17 00:00 97.0 F L 88 18 97/65 93 L 07/06/17 20:01 110 H 07/06/17 20:00 97.3 F L 100 20 90/50 94 L 07/06/17 19:47 108 H 07/06/17 16:17 110 H Intake and Output 07/07/17 07/07/17 07/07/17 06:59 14:59 22:59 Intake Total 0 300 Balance 0 300 Intake: Intake, IV Titration 300 Amount Cefepime 2 gm In Sodium 50 Chloride 0.9% 50 ml @ 100 mls/hr IVPB Q8HR JUAN A Rx# :[id number] Vancomycin 1,000 mg In 250 Sodium Chloride 0.9% 250 ml @ 125 mls/hr IVPB Q12H JUAN A Rx#:[id number] Oral 0 Other: Voiding Method Toilet Toilet # Voids 6 Physical Exam: Revealed a 61-year-old female in no distress. HEENT:[Neck is supple.] [No neck masses.] [No thyromegaly.] [No JVD.] Chest: [Diffuse rhonchi and wheezes noted bilaterally, crackles and rhonchi were more prominent over the right lower lobe area. No chest wall tenderness, symmetrical expansion noted.] Cardiac Exam: [Irregular irregular Normal S1 and S2, no S3 gallop, 2/6 systolic murmur throughout the precordium.] Abdomen: [Soft, nontender, no megaly, no rebound, no guarding, normal bowel sounds.] Extremities: [No clubbing, no edema, no cyanosis.] Neurological Exam: [No focal neurologic deficit.] Psychiatric: Normal mood, normal affect, normal mental status examination Lymphatics: No lymphadenopathy. Results - Laboratory Findings CBC and BMP: 07/07/17 04:31 07/06/17 05:28 PT/INR, D-dimer PT 26.0 sec (9.0-12.0) H 07/07/17 04:31 INR 2.7 (<1.2) H 07/07/17 04:31 Abnormal lab findings: Abnormal Labs 07/04/17 07/04/17 07/04/17 15:07 15:07 15:07 WBC RBC Hgb RDW 16.5 H Neutrophils # Lymphocytes # 0.6 L PT INR APTT VBG pH VBG HCO3 Potassium 3.2 L Chloride Carbon Dioxide Creatinine Glucose 103 H POC Glucose (mg/dL) Plasma Lactic Acid Ulises Calcium AST 42 H CK-MB (CK-2) Troponin I 0.042 H* Total Protein 6.1 L Albumin 3.4 L TSH 07/04/17 07/04/17 07/04/17 15:07 15:07 15:07 WBC RBC Hgb RDW Neutrophils # Lymphocytes # PT 12.6 H INR 1.3 H APTT VBG pH 7.29 L VBG HCO3 23 L Potassium Chloride Carbon Dioxide Creatinine Glucose POC Glucose (mg/dL) Plasma Lactic Acid Ulises 2.5 H* Calcium AST CK-MB (CK-2) Troponin I Total Protein Albumin TSH 07/04/17 07/05/17 07/05/17 23:34 02:44 02:44 WBC 2.8 L RBC 3.63 L Hgb 11.1 L RDW 15.6 H Neutrophils # Lymphocytes # 0.4 L PT INR APTT 37.4 H VBG pH VBG HCO3 Potassium Chloride Carbon Dioxide Creatinine Glucose POC Glucose (mg/dL) Plasma Lactic Acid Ulises Calcium AST CK-MB (CK-2) 2.6 H* Troponin I Total Protein Albumin TSH 07/05/17 07/05/17 07/05/17 02:44 02:44 05:59 WBC RBC Hgb RDW Neutrophils # Lymphocytes # PT INR APTT VBG pH VBG HCO3 Potassium Chloride 109 H Carbon Dioxide 18 L Creatinine 0.50 L Glucose 218 H POC Glucose (mg/dL) 222 H Plasma Lactic Acid Ulises Calcium 8.0 L AST 37 H CK-MB (CK-2) Troponin I Total Protein 5.4 L Albumin 2.9 L TSH 0.270 L 07/05/17 07/05/17 07/05/17 08:16 16:20 20:44 WBC RBC Hgb RDW Neutrophils # Lymphocytes # PT INR APTT 49.1 H VBG pH VBG HCO3 Potassium Chloride Carbon Dioxide Creatinine Glucose POC Glucose (mg/dL) 197 H 166 H Plasma Lactic Acid Ulises Calcium AST CK-MB (CK-2) Troponin I Total Protein Albumin TSH 07/06/17 07/06/17 07/06/17 05:28 05:28 05:28 WBC 12.6 H RBC Hgb RDW 15.7 H Neutrophils # 11.3 H Lymphocytes # 0.7 L PT 14.2 H INR 1.5 H APTT 30.1 H VBG pH VBG HCO3 Potassium 3.4 L Chloride Carbon Dioxide Creatinine Glucose 154 H POC Glucose (mg/dL) Plasma Lactic Acid Ulises Calcium AST CK-MB (CK-2) Troponin I Total Protein Albumin TSH 07/06/17 07/06/17 07/06/17 06:02 11:32 14:49 WBC RBC Hgb RDW Neutrophils # Lymphocytes # PT INR APTT 41.1 H VBG pH VBG HCO3 Potassium Chloride Carbon Dioxide Creatinine Glucose POC Glucose (mg/dL) 162 H 172 H Plasma Lactic Acid Ulises Calcium AST CK-MB (CK-2) Troponin I Total Protein Albumin [facility] 07/06/17 07/06/17 07/06/17 17:00 21:01 22:21 WBC RBC Hgb RDW Neutrophils # Lymphocytes # PT INR APTT 57.6 H VBG pH VBG HCO3 Potassium Chloride Carbon Dioxide Creatinine Glucose POC Glucose (mg/dL) 126 H 130 H Plasma Lactic Acid Ulises Calcium AST CK-MB (CK-2) Troponin I Total Protein Albumin [facility] 07/07/17 07/07/17 07/07/17 04:31 04:31 07:01 WBC 13.3 H RBC 3.73 L Hgb RDW 15.7 H Neutrophils # 11.4 H Lymphocytes # 0.8 L PT 26.0 H INR 2.7 H APTT VBG pH VBG HCO3 Potassium Chloride Carbon Dioxide Creatinine Glucose POC Glucose (mg/dL) 144 H Plasma Lactic Acid Ulises Calcium AST CK-MB (CK-2) Troponin I Total Protein Albumin [facility] 07/07/17 11:06 WBC RBC Hgb RDW Neutrophils # Lymphocytes # PT INR APTT VBG pH VBG HCO3 Potassium Chloride Carbon Dioxide Creatinine Glucose POC Glucose (mg/dL) 151 H Plasma Lactic Acid Ulises Calcium AST CK-MB (CK-2) Troponin I Total Protein Albumin TSH - Diagnostic Findings Chest x-ray: image reviewed (Estimated disease noted in the right lower lobe, possible postinflammatory, cannot rule out acute pneumonia in the right lower lobe.) Assessment and Plan Plan: Impression: 1 acute exacerbation of COPD 2 possible acute and recurrent right lower lobe pneumonia 3 chronic atrial fibrillation, strongly doubt congestive heart failure. 4 tobacco dependence syndrome, patient was counseled regarding smoking cessation 5 history of previous CVAs and TIAs. 6 history of ASD closure 7 history of chronic mitral stenosis Recommendation: Considering the persistent abnormality in the right lower lobe, although improved, but I'm a bit concerned about the possibility of postobstructive pneumonitis, we'll arrange for the patient to have a high- resolution CT of the chest, we'll hold Coumadin, and I would likely arrange for bronchoscopy and lavage of the right lower lobe once INR is below 1.5. We'll continue to follow, continue present antibiotics including cefepime continue bronchodilators and steroids. Time with Patient: Greater than 30
[2017-07-07 17:02] LABS: Glucose,Whole Blood 149 mg/dL (75-99)
--- NOTE | 2017-07-07 17:07 | CT ---
EXAMINATION TYPE: CT chest wo con DATE OF EXAM: 07/07/2017 COMPARISON: 07/02/2013 HISTORY: cough for 2-[address] DLP: 412 mGycm. Automated Exposure Control for Dose Reduction was Utilized. TECHNIQUE: CT scan of the thorax is performed without IV contrast. FINDINGS: Exam significantly limited due to lack of contrast. LUNGS: There are vague areas of groundglass peribronchial subsegmental consolidation somewhat there i s nodular component. Findings are greatest noted in the upper lobe lung zones. More confluent density seen in the lower lung field. Dural based mass or density along the lateral chest on the right measu ring 1.4 cm. Additional areas of linear changes are more typical of scar or atelectasis. No overt failure. The hea rt is markedly enlarged. Correlate for previous valvular intervention. Aorta of normal caliber. Coronary artery calcification noted. There is a stable tiny right pleural ef fusion. IMPRESSION: 1. Bilateral ill-defined infiltrate with a nodular pattern. Differential diagnosis would include an o pportunistic infection or granulomatous disease. Atypical pneumonia or neoplasm not entirely excluded . Follow-up to resolution. 2. Marked cardiomegaly correlate clinically. A density seen in the heart likely related to previous v alvular replacement surgery correlate clinically for confirmation. 3. there is a more masslike or nodular peripheral based 1.4 cm lesion. Located in the lower upper lob e. Although this could perhaps be postinflammatory but recommend a short-term follow-up is seen. Neop lasm also be in the differential diagnosis.
[2017-07-07 20:54] LABS: Glucose,Whole Blood 184 mg/dL (75-99)
[2017-07-07] MEDS: METOPROLOL SUCCINATE (ER) 25 MG TAB.ER.24H PO SCH (21:51)
[2017-07-07] MEDS: TEMAZEPAM 30 MG CAP PO SCH (21:57)
[2017-07-08] MEDS: oxyCODONE-APAP 10-325MG 1 EACH TAB PO PRN ×4 (02:06→22:39)
[2017-07-08] MEDS: FUROSEMIDE 10 MG/ML 4 ML VIAL IV SCH ×2 (05:54→19:45)
[2017-07-08] MEDS: methylPREDNISolone SOD SUCCI 125 MG/2 ML VIAL IV SCH ×3 (06:17→19:42)
[2017-07-08 07:14] LABS: Glucose,Whole Blood 153 mg/dL (75-99)
[2017-07-08] MEDS: IPRATROPIUM-ALBUTEROL 3 ML NEB INHALATION SCH ×4 (07:51→20:25)
[2017-07-08] MEDS: SYMBICORT 160-4.5 MCG INHALER INHALATION SCH ×2 (07:51→20:25)
[2017-07-08 07:56] LABS: Basophils % (A) 0 %; CH 31.7; CHCM 33.4; Eosinophils % (A) 0 %; HCT 39.2 % (34.0-46.0); HDW 3.36; HGB 12.8 gm/dL (11.4-16.0); Luc # (Auto) 0.52; Luc % (Auto) 4; Lymphocytes # (A) 0.8 k/uL (1.0-4.8); Lymphocytes % (A) 6 %; MCH 31.2 pg (25.0-35.0); MCHC 32.6 g/dL (31.0-37.0); MCV 95.7 fL (80.0-100.0); Mean Platelet Volume 7.9; Monocytes # (A) 0.7 k/uL (0-1.0); Monocytes % (A) 5 %; Neutrophils # (A) 11.4 k/uL (1.3-7.7); Neutrophils % (A) 85 %; RDW 15.2 % (11.5-15.5); WBC 13.5 k/uL (3.8-10.6); WBC (Perox) 13.52
[2017-07-08 08:02] LABS: INR 3.9 (<1.2); Prothrombin Time 38.5 sec (9.0-12.0)
[2017-07-08] MEDS: NICOTINE 14MG/24HR PATCH TRANSDERM SCH (08:04)
[2017-07-08] MEDS: VANCOMYCIN 1,000 MG in SODIUM CHLORIDE 0.9% 250 ML IVPB SCH ×2 (08:05→19:43)
[2017-07-08] MEDS: INSULIN LISPRO (humaLOG) 300 UNIT/3 ML VIAL SQ SCH ×4 (08:06→22:40)
[2017-07-08] MEDS: PANTOPRAZOLE 40 MG TABLET PO SCH (08:07)
[2017-07-08] MEDS: DIGOXIN 125 MCG TAB PO SCH (08:09)
[2017-07-08] MEDS: ESCITALOPRAM 10 MG TAB PO SCH (08:09)
[2017-07-08] MEDS: ENOXAPARIN 60 MG/0.6 ML SYRINGE SQ SCH ×2 (08:09→22:40)
[2017-07-08] MEDS: METOPROLOL SUCCINATE (ER) 50 MG TAB.ER.24H PO SCH (08:10)
[2017-07-08] MEDS: ALPRAZolam 0.25 MG TAB PO PRN ×3 (08:22→22:45)
[2017-07-08] MEDS: CEFEPIME 2 GM in SODIUM CHLORIDE 0.9% 50 ML IVPB SCH ×2 (10:37→15:28)
--- NOTE | 2017-07-08 10:48 | P.PN ---
Subjective Patient resting in bed states she is at some improvement rest her status. Patient is booked for a bronchoscopy today noted INR 3.9 maybe on hold Objective - Vital Signs Vital signs: Vital Signs Temp 98.1 F 07/08/17 08:40 Pulse 98 07/08/17 08:41 Resp 18 07/08/17 07:00 BP 112/65 07/08/17 07:00 Pulse Ox 88 L 07/08/17 07:00 Intake & Output 07/07/17 07/08/17 07/08/17 18:59 06:59 18:59 Intake Total 300 Balance 300 Intake: Intake, IV Titration 300 Amount Cefepime 2 gm In Sodium 50 Chloride 0.9% 50 ml @ 100 mls/hr IVPB Q8HR JUAN A Rx# :[id number] Vancomycin 1,000 mg In 250 Sodium Chloride 0.9% 250 ml @ 125 mls/hr IVPB Q12H JUAN A Rx#:[id number] Other: Voiding Method Toilet Toilet Toilet # Voids 6 2 - Constitutional General appearance: Present: mild distress - EENT Eyes: Present: PERRLA Ears: bilateral: normal - Neck Neck: Present: normal ROM - Respiratory Respiratory: bilateral: diminished, rhonchi - Cardiovascular Rhythm: irregularly irregular - Gastrointestinal General gastrointestinal: Present: soft - Integumentary Integumentary: Present: normal - Neurologic Neurologic: Present: CNII-XII intact - Psychiatric Psychiatric: Present: A&O x's 3, appropriate affect, intact judgment & insight - Labs CBC & Chem 7: 07/08/17 07:28 07/06/17 05:28 Labs: Abnormal Lab Results - Last 24 Hours (Table) 07/07/17 07/07/17 07/07/17 Range/Units 11:06 17:00 20:52 WBC (3.8-10.6) k/uL Neutrophils # (1.3-7.7) k/uL Lymphocytes # (1.0-4.8) k/uL PT (9.0-12.0) sec INR (<1.2) POC Glucose (mg/dL) 151 H 149 H 184 H (75-99) mg/dL 07/08/17 07/08/17 07/08/17 Range/Units 07:11 07:28 07:28 WBC 13.5 H (3.8-10.6) k/uL Neutrophils # 11.4 H (1.3-7.7) k/uL Lymphocytes # 0.8 L (1.0-4.8) k/uL PT 38.5 H (9.0-12.0) sec INR 3.9 H (<1.2) POC Glucose (mg/dL) 153 H (75-99) mg/dL Microbiology - Last 24 Hours (Table) 07/04/17 15:07 Blood Culture - Preliminary Blood No Growth after 72 hours 07/05/17 13:13 Blood Culture - Preliminary Blood No Growth after 48 hours - Imaging and Cardiology CT scan - chest: report reviewed Assessment and Plan Assessment: Assessment Pneumonia sepsis Acute on chronic hypercapnic rest trach failure secondary to COPD exacerbation History of congestive heart failure chronic diastolic dysfunction pulmonary hypertension Chronic atrial fibrillation Continued nicotine dependence History of CVA/TIA Hypertension Severe mitral stenosis Plan Continue consultation with cardiology and pulmonology Bronchoscopy scheduled
--- NOTE | 2017-07-08 11:43 | P.PN ---
Subjective Progress Note Date: 07/08/17 Mrs Gordon is being seen today in follow-up. She follows regularly with Dr. Nichole as an outpatient. She was admitted with symptoms of acute bronchitis and underlying exacerbation of heart failure. She had severe lower extremity edema that is improving. She has been maintained on lasix 40 mg IV BID. She has past medical history significant for severe mitral stenosis with previous balloon valvuloplasty, chronic persistent atrial fibrillation, pulmonary hypertension, prior ASD closure, rheumatic heart disease and chronic tobacco abuse. Upon exam she is seen sitting up in bed talking on her phone. She is scheduled for a bronchoscopy today with pulmonology. She is in no acute distress. Her lower extremity edema is still evident but greatly improved. INR today is 3.9. Heparin was discontinued yesterday. Objective - Vital Signs Vital signs: Vital Signs Temp 98.1 F 07/08/17 08:40 Pulse 98 07/08/17 08:41 Resp 18 07/08/17 07:00 BP 112/65 07/08/17 07:00 Pulse Ox 88 L 07/08/17 07:00 Intake & Output 07/07/17 07/08/17 07/08/17 18:59 06:59 18:59 Intake Total 300 Balance 300 Weight 71 kg Intake: Intake, IV Titration 300 Amount Cefepime 2 gm In Sodium 50 Chloride 0.9% 50 ml @ 100 mls/hr IVPB Q8HR JUAN A Rx# :[id number] Vancomycin 1,000 mg In 250 Sodium Chloride 0.9% 250 ml @ 125 mls/hr IVPB Q12H JUAN A Rx#:[id number] Other: Voiding Method Toilet Toilet Toilet # Voids 6 2 2 - Exam GENERAL: Well-appearing, well-nourished and in no acute distress. NECK: Supple without JVD or thyromegaly. LUNGS: Respiration equal and unlabored. Diminished air entry. Bibasilar rales with expiratory wheeze. Course rhonchi. HEART: Irregular rate and rhythm with systolic ejection type murmur at the apex , no rubs or gallops. S1 and S2 heard. EXTREMITIES: Normal range of motion, b/l lower extremity non-pitting edema improving from previous exam. No clubbing or cyanosis. Peripheral pulses intact and strong. - Labs CBC & Chem 7: 07/08/17 07:28 07/06/17 05:28 Labs: Abnormal Lab Results - Last 24 Hours (Table) 07/07/17 07/07/17 07/07/17 Range/Units 11:06 17:00 20:52 WBC (3.8-10.6) k/uL Neutrophils # (1.3-7.7) k/uL Lymphocytes # (1.0-4.8) k/uL PT (9.0-12.0) sec INR (<1.2) POC Glucose (mg/dL) 151 H 149 H 184 H (75-99) mg/dL 07/08/17 07/08/17 07/08/17 Range/Units 07:11 07:28 07:28 WBC 13.5 H (3.8-10.6) k/uL Neutrophils # 11.4 H (1.3-7.7) k/uL Lymphocytes # 0.8 L (1.0-4.8) k/uL PT 38.5 H (9.0-12.0) sec INR 3.9 H (<1.2) POC Glucose (mg/dL) 153 H (75-99) mg/dL Microbiology - Last 24 Hours (Table) 07/04/17 15:07 Blood Culture - Preliminary Blood No Growth after 72 hours 07/05/17 13:13 Blood Culture - Preliminary Blood No Growth after 48 hours Assessment and Plan Plan: ASSESSMENT 1. Acute on chronic diastolic heart failure 2. Chronic persistent atrial fibrillation on terminologist anticoagulation 3. Mitral stenosis with prior balloon valvuloplasty 4. History of ASD closure 5. Chronic tobacco abuse 6. Pulmonary hypertension RSVP 71.99 mmHg PLAN Coumadin dosing pharmacy. Continue with diuresis as previously ordered. Keep legs elevated while sitting. Increase ambulation and activity as tolerated. Nurse Practitioner note has been reviewed, I agree with a documented findings and plan of care. Patient was seen and examined.
[2017-07-08 12:00] LABS: Glucose,Whole Blood 140 mg/dL (75-99)
--- NOTE | 2017-07-08 13:58 | P.PN ---
Subjective Progress Note Date: 07/08/17 Principal diagnosis: Shortness of breath and productive cough This is a 61-year-old female with history of severe COPD, FEV1 is in the range of 57% at best, patient continues to smoke in spite of her COPD, she was last seen in my office about a week ago, and she was seen mostly for follow-up on her previous episode of pneumonia involving the right lower lobe and episode of exacerbation of COPD. Patient was doing quite well, clinically she recovered fully from her pneumonia, but her chest x-ray continued to show some postinflammatory changes in the right lower lobe. Patient did not require any further courses of antibiotics, and she was treated for a two-week period with Augmentin. On 07/04/2017, patient was readmitted with 1 day history of fever, cough, cough is productive with yellow phlegm, shortness of breath, and wheezing. Patient had a follow-up chest x-ray showing as a disease involving the right lower lobe, not clear whether this is a postinflammatory change or actually recurrent pneumonia involving the right lower lobe again. Patient was placed on antibiotics, bronchodilators, steroids, does not seem to be improving much over the last a few days. Hence this consult was initiated. I evaluated the patient, I felt that the patient needs to be bronchoscoped. However considering the patient is on Coumadin, will hold the Coumadin for the next few days, and I will tentatively planned bronchoscopy on Thursday of this week. In the meantime patient could be given Lovenox as a bridge, will replace Coumadin temporarily. Unfortunately, the patient continues to smoke in spite of her severe COPD and recurrent symptoms of possible right lower lobe pneumonia. On 07/08/2017 patient is seen in follow-up. She states some improvement in her chest congestion, she still has productive cough with moderate amount of thin yellow sputum. Microbiology results were reviewed and showed no growth in the blood cultures after 72 hours. Patient did desaturate to 88% on room air this morning. She is currently on 2 L of oxygen per nasal cannula with O2 saturation of 96%. Her respirations are even and unlabored, but she does become dyspneic with activity. On the examination lung sounds are positive for few scattered wheezes and rhonchi bilaterally however this is much improved improved from previous exam. CT of the chest from 07/07/2017 was reviewed and showed bilateral infiltrates with a nodular pattern, cardiomegaly and a left upper lobe nodule or a mass 1.4 cm. The exam was significantly limited due to the lack of contrast. Patient will be scheduled for bronchoscopy on Thursday, pending INR is down to 1.2-1.4 range. Coumadin is on hold, Lovenox was initiated for prophylaxis for chronic A. fib. Objective - Vital Signs Vital signs: Vital Signs Temp 98.1 F 07/08/17 08:40 Pulse 102 H 07/08/17 11:42 Resp 18 07/08/17 07:00 BP 112/65 07/08/17 07:00 Pulse Ox 88 L 07/08/17 07:00 Intake & Output 07/07/17 07/08/17 07/08/17 18:59 06:59 18:59 Intake Total 300 Balance 300 Weight 71 kg Intake: Intake, IV Titration 300 Amount Cefepime 2 gm In Sodium 50 Chloride 0.9% 50 ml @ 100 mls/hr IVPB Q8HR JUAN A Rx# :[id number] Vancomycin 1,000 mg In 250 Sodium Chloride 0.9% 250 ml @ 125 mls/hr IVPB Q12H JUAN A Rx#:[id number] Other: Voiding Method Toilet Toilet Toilet # Voids 6 2 2 - Exam Physical Exam: Revealed a 61-year-old female in no distress. HEENT:[Neck is supple.] [No neck masses.] [No thyromegaly.] [No JVD.] Chest: [Diffuse rhonchi and wheezes noted bilaterally, crackles and rhonchi were more prominent over the right lower lobe area. No chest wall tenderness, symmetrical expansion noted.] Cardiac Exam: [Irregular irregular Normal S1 and S2, no S3 gallop, 2/6 systolic murmur throughout the precordium.] Abdomen: [Soft, nontender, no megaly, no rebound, no guarding, normal bowel sounds.] Extremities: [No clubbing, no edema, no cyanosis.] Neurological Exam: [No focal neurologic deficit.] Psychiatric: Normal mood, normal affect, normal mental status examination Lymphatics: No lymphadenopathy. - Labs CBC & Chem 7: 07/08/17 07:28 07/06/17 05:28 Labs: Abnormal Lab Results - Last 24 Hours (Table) 07/07/17 07/07/1707/08/17 Range/Units 17:00 20:52 07:11 WBC (3.8-10.6) k/uL Neutrophils # (1.3-7.7) k/uL Lymphocytes # (1.0-4.8) k/uL PT (9.0-12.0) sec INR (<1.2) POC Glucose (mg/dL) 149 H 184 H 153 H (75-99) mg/dL 07/08/17 07/08/17 07/08/17 Range/Units 07:28 07:28 11:37 WBC 13.5 H (3.8-10.6) k/uL Neutrophils # 11.4 H (1.3-7.7) k/uL Lymphocytes # 0.8 L (1.0-4.8) k/uL PT 38.5 H (9.0-12.0) sec INR 3.9 H (<1.2) POC Glucose (mg/dL) 140 H (75-99) mg/dL Microbiology - Last 24 Hours (Table) 07/04/17 15:07 Blood Culture - Preliminary Blood No Growth after 72 hours 07/05/17 13:13 Blood Culture - Preliminary Blood No Growth after 48 hours - Imaging and Cardiology Chest x-ray: report reviewed CT scan - chest: report reviewed Assessment and Plan Plan: Impression: 1 acute exacerbation of COPD 2 possible acute and recurrent right lower lobe pneumonia 3 chronic atrial fibrillation, strongly doubt congestive heart failure. 4 tobacco dependence syndrome, patient was counseled regarding smoking cessation 5 history of previous CVAs and TIAs. 6 history of ASD closure 7 history of chronic mitral stenosis Recommendation: Patient is making modest improvement from pulmonary standpoint, she continues with chest congestion although slightly better from yesterday. Patient's sputum culture from 05/24/2017 was positive for Barbara albicans and Pseudomonas fluorescence/putida, which showed sensitivity to cefepime. Hence we 'll continue with IV cefepime at this time until new sputum culture results are available. Continue holding coumadin, and I would likely arrange for bronchoscopy and lavage of the right lower lobe once INR is below 1.5. We'll continue to follow, continue bronchodilators and steroids. I performed a history & physical examination of the patient and discussed their management with my nurse practitioner, Noemi Donald. I reviewed the nurse practitioner's note and agree with the documented findings and plan of care. Lung sounds are positive for scattered rhonchi and rales with some diffuse wheezing. I attest the documentation by the nurse practitioner
[2017-07-08 17:12] LABS: Glucose,Whole Blood 174 mg/dL (75-99)
[2017-07-08] MEDS: METOPROLOL SUCCINATE (ER) 25 MG TAB.ER.24H PO SCH (22:40)
[2017-07-08 22:50] LABS: Glucose,Whole Blood 144 mg/dL (75-99)
[2017-07-09] MEDS: TEMAZEPAM 30 MG CAP PO SCH (03:09)
[2017-07-09] MEDS: CEFEPIME 2 GM in SODIUM CHLORIDE 0.9% 50 ML IVPB SCH ×4 (03:14→23:23)
[2017-07-09] MEDS: methylPREDNISolone SOD SUCCI 125 MG/2 ML VIAL IV SCH ×5 (03:16→23:23)
[2017-07-09] MEDS: oxyCODONE-APAP 10-325MG 1 EACH TAB PO PRN ×2 (03:41→20:17)
[2017-07-09] MEDS ORDERED: VANCOMYCIN TROUGH DUE 1 EACH MISC MISCELLANE ONE (06:00)
[2017-07-09] MEDS: FUROSEMIDE 10 MG/ML 4 ML VIAL IV SCH (06:17)
[2017-07-09] MEDS: ALPRAZolam 0.25 MG TAB PO PRN (06:21)
[2017-07-09 06:47] LABS: Basophils % (A) 0 %; CH 31.5; CHCM 33.4; Eosinophils % (A) 0 %; HCT 38.4 % (34.0-46.0); HDW 3.28; HGB 12.6 gm/dL (11.4-16.0); Luc # (Auto) 0.23; Luc % (Auto) 2; Lymphocytes # (A) 0.8 k/uL (1.0-4.8); Lymphocytes % (A) 8 %; MCH 31.1 pg (25.0-35.0); MCHC 32.8 g/dL (31.0-37.0); MCV 94.8 fL (80.0-100.0); Mean Platelet Volume 7.9; Monocytes # (A) 0.6 k/uL (0-1.0); Monocytes % (A) 6 %; Neutrophils # (A) 8.7 k/uL (1.3-7.7); Neutrophils % (A) 84 %; RBC 4.05 m/uL (3.80-5.40); RDW 14.8 % (11.5-15.5); WBC 10.5 k/uL (3.8-10.6); WBC (Perox) 10.47
[2017-07-09 06:53] LABS: INR 3.4 (<1.2); Prothrombin Time 33.3 sec (9.0-12.0)
[2017-07-09 07:08] LABS: Non-African American GFR(MDRD) >60 (>60 ml/min/1.73 sqM)
[2017-07-09] MEDS: SYMBICORT 160-4.5 MCG INHALER INHALATION SCH ×2 (07:18→19:36)
[2017-07-09] MEDS: IPRATROPIUM-ALBUTEROL 3 ML NEB INHALATION SCH ×4 (07:18→19:36)
[2017-07-09] MEDS: PANTOPRAZOLE 40 MG TABLET PO SCH (07:36)
[2017-07-09] MEDS: ENOXAPARIN 60 MG/0.6 ML SYRINGE SQ SCH ×2 (07:37→07:41)
[2017-07-09] MEDS: METOPROLOL SUCCINATE (ER) 50 MG TAB.ER.24H PO SCH (07:37)
[2017-07-09] MEDS: ESCITALOPRAM 10 MG TAB PO SCH (07:37)
[2017-07-09] MEDS: DIGOXIN 125 MCG TAB PO SCH (07:38)
[2017-07-09] MEDS: NICOTINE 14MG/24HR PATCH TRANSDERM SCH (07:38)
[2017-07-09 07:51] LABS: Glucose,Whole Blood 162 mg/dL (75-99)
[2017-07-09] MEDS: VANCOMYCIN 1,000 MG in SODIUM CHLORIDE 0.9% 250 ML IVPB SCH ×2 (08:58→19:20)
[2017-07-09] MEDS: INSULIN LISPRO (humaLOG) 300 UNIT/3 ML VIAL SQ SCH ×4 (09:03→21:19)
[2017-07-09 11:30] LABS: Glucose,Whole Blood 143 mg/dL (75-99)
--- NOTE | 2017-07-09 12:22 | P.PN ---
Subjective Patient sitting at side of bed noted improvement with rest her status. Awaiting for INR to decrease to 1.[address] Dave to do bronchoscopy Objective - Vital Signs Vital signs: Vital Signs Temp 97.6 F 07/09/17 07:00 Pulse 88 07/09/17 11:32 Resp 16 07/09/17 07:00 BP 105/76 07/09/17 07:00 Pulse Ox 94 L 07/09/17 07:00 Intake & Output 07/08/17 07/09/17 07/09/17 18:59 06:59 18:59 Intake Total 450 Output Total 0 0 Balance 0 450 0 Weight 71 kg 71 kg Intake: IV 450 Vancomycin 1,000 mg In 250 Sodium Chloride 0.9% 250 ml @ 125 mls/hr IVPB Q12H JUAN A Rx#:[id number] ns@20 200 Output: Stool 0 0 Other: Voiding Method Toilet Toilet # Voids 2 2 - Constitutional General appearance: Present: mild distress - EENT Eyes: Present: PERRLA Ears: bilateral: normal - Neck Neck: Present: normal ROM - Respiratory Respiratory: bilateral: diminished, rhonchi - Cardiovascular Rhythm: irregularly irregular - Peripheral edema leg Peripheral Edema: bilateral: 1+ - Gastrointestinal General gastrointestinal: Present: soft - Integumentary Integumentary: Present: normal - Neurologic Neurologic: Present: CNII-XII intact - Psychiatric Psychiatric: Present: A&O x's 3, appropriate affect, intact judgment & insight - Labs CBC & Chem 7: 07/09/17 06:22 07/09/17 06:22 Labs: Abnormal Lab Results - Last 24 Hours (Table) 07/08/17 07/08/17 07/09/17 Range/Units 17:09 22:38 06:22 Neutrophils # 8.7 H (1.3-7.7) k/uL Lymphocytes # 0.8 L (1.0-4.8) k/uL PT (9.0-12.0) sec INR (<1.2) POC Glucose (mg/dL) 174 H 144 H (75-99) mg/dL 07/09/17 07/09/17 07/09/17 Range/Units 06:22 07:48 11:28 Neutrophils # (1.3-7.7) k/uL Lymphocytes # (1.0-4.8) k/uL PT 33.3 H (9.0-12.0) sec INR 3.4 H (<1.2) POC Glucose (mg/dL) 162 H 143 H (75-99) mg/dL Microbiology - Last 24 Hours (Table) 07/04/17 15:07 Blood Culture - Preliminary Blood No Growth after 96 hours 07/05/17 13:13 Blood Culture - Preliminary Blood No Growth after 72 hours - Imaging and Cardiology CT scan - chest: report reviewed Assessment and Plan Assessment: Assessment Sepsis associated with pneumonia Acute on chronic hypercapnic respiratory failure secondary to COPD exacerbation History of chronic diastolic dysfunction with acute exacerbation pulmonary hypertension Chronic atrial fibrillation controlled RVR Continued nicotine dependence History of CVA/TIA Hypertension Severe mitral stenosis Plan Continue consultation with cardiology and pulmonology Bronchoscopy when INR 1.5 or less
--- NOTE | 2017-07-09 12:30 | P.PN ---
Subjective Progress Note Date: 07/09/17 Mrs Gordon is being seen today in follow-up. She follows regularly with Dr. Nichole as an outpatient. She was admitted with symptoms of acute bronchitis and underlying exacerbation of heart failure. She had severe lower extremity edema that is improving. She has been maintained on lasix 40 mg IV BID. She has past medical history significant for severe mitral stenosis with previous balloon valvuloplasty, chronic persistent atrial fibrillation, pulmonary hypertension, prior ASD closure, rheumatic heart disease and chronic tobacco abuse. Upon exam she is seen sitting up in the chair in no acute distress. Her lower extremity edema is still evident but greatly improved. INR today is 3.4. Coumadin has been on hold for possible bronchoscopy with Dr. García once INR less than 1.5. She is on SQ lovenox to bridge. Blood pressure today 105/76 with heart rate of 97. She has been controlled rate atrial fibrillation on telemetry with no episodes of rapid ventricular response. She is currently chest pain free, denies palpitations, denies dizziness, denies extreme shortness of breath. She is currently maintained on room air. Objective - Vital Signs Vital signs: Vital Signs Temp 97.6 F 07/09/17 07:00 Pulse 94 07/09/17 07:28 Resp 16 07/09/17 07:00 BP 105/76 07/09/17 07:00 Pulse Ox 94 L 07/09/17 07:00 Intake & Output 07/08/17 07/09/17 07/09/17 18:59 06:59 18:59 Intake Total 450 Output Total 0 Balance 0 450 Weight 71 kg Intake: IV 450 Vancomycin 1,000 mg In 250 Sodium Chloride 0.9% 250 ml @ 125 mls/hr IVPB Q12H JUAN A Rx#:[id number] ns@20 200 Output: Stool 0 Other: Voiding Method Toilet Toilet # Voids 2 - Exam GENERAL: Well-appearing, well-nourished and in no acute distress. NECK: Supple without JVD or thyromegaly. LUNGS: Respiration equal and unlabored. Diminished air entry. No wheezes. Scattered rhonchi left lower lobe. Right clear to auscultation. HEART: Irregular rate and rhythm with systolic ejection type murmur at the apex , no rubs or gallops. S1 and S2 heard. EXTREMITIES: Normal range of motion, b/l lower extremity non-pitting edema improving from previous exam. No clubbing or cyanosis. Peripheral pulses intact and strong. - Labs CBC & Chem 7: 07/09/17 06:22 07/09/17 06:22 Labs: Abnormal Lab Results - Last 24 Hours (Table) 07/08/17 07/08/17 07/08/17 Range/Units 11:37 17:09 22:38 Neutrophils # (1.3-7.7) k/uL Lymphocytes # (1.0-4.8) k/uL PT (9.0-12.0) sec INR (<1.2) POC Glucose (mg/dL) 140 H 174 H 144 H (75-99) mg/dL 07/09/17 07/09/17 07/09/17 Range/Units 06:22 06:22 07:48 Neutrophils # 8.7 H (1.3-7.7) k/uL Lymphocytes # 0.8 L (1.0-4.8) k/uL PT 33.3 H (9.0-12.0) sec INR 3.4 H (<1.2) POC Glucose (mg/dL) 162 H (75-99) mg/dL Microbiology - Last 24 Hours (Table) 07/04/17 15:07 Blood Culture - Preliminary Blood No Growth after 96 hours 07/05/17 13:13 Blood Culture - Preliminary Blood No Growth after 72 hours Assessment and Plan Plan: ASSESSMENT 1. Acute on chronic diastolic heart failure 2. 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 Mitral stenosis with prior balloon valvuloplasty 4. History of ASD closure 5. Chronic tobacco abuse 6. Pulmonary hypertension RSVP 71.99 mmHg PLAN Change lasix to PO at home dose. Recommend to the patient that she continue with ROSALIE hose and elevate her legs while she is sitting or in bed. She is agreeable and has been compliant with this. She has been in controlled rate atrial fibrillation with no ectopy or rapid rate. Telemetry can be discontinued at this time. Continue with medical management. We will continue to see her on an as needed basis. Nurse Practitioner note has been reviewed, I agree with a documented findings and plan of care. Patient was seen and examined.
--- NOTE | 2017-07-09 14:24 | P.PN ---
Subjective Progress Note Date: 07/09/17 Principal diagnosis: Shortness of breath and productive cough This is a 61-year-old female with history of severe COPD, FEV1 is in the range of 57% at best, patient continues to smoke in spite of her COPD, she was last seen in my office about a week ago, and she was seen mostly for follow-up on her previous episode of pneumonia involving the right lower lobe and episode of exacerbation of COPD. Patient was doing quite well, clinically she recovered fully from her pneumonia, but her chest x-ray continued to show some postinflammatory changes in the right lower lobe. Patient did not require any further courses of antibiotics, and she was treated for a two-week period with Augmentin. On 07/04/2017, patient was readmitted with 1 day history of fever, cough, cough is productive with yellow phlegm, shortness of breath, and wheezing. Patient had a follow-up chest x-ray showing as a disease involving the right lower lobe, not clear whether this is a postinflammatory change or actually recurrent pneumonia involving the right lower lobe again. Patient was placed on antibiotics, bronchodilators, steroids, does not seem to be improving much over the last a few days. Hence this consult was initiated. I evaluated the patient, I felt that the patient needs to be bronchoscoped. However considering the patient is on Coumadin, will hold the Coumadin for the next few days, and I will tentatively planned bronchoscopy on Thursday of this week. In the meantime patient could be given Lovenox as a bridge, will replace Coumadin temporarily. Unfortunately, the patient continues to smoke in spite of her severe COPD and recurrent symptoms of possible right lower lobe pneumonia. On 07/08/2017 patient is seen in follow-up. She states some improvement in her chest congestion, she still has productive cough with moderate amount of thin yellow sputum. Microbiology results were reviewed and showed no growth in the blood cultures after 72 hours. Patient did desaturate to 88% on room air this morning. She is currently on 2 L of oxygen per nasal cannula with O2 saturation of 96%. Her respirations are even and unlabored, but she does become dyspneic with activity. On the examination lung sounds are positive for few scattered wheezes and rhonchi bilaterally however this is much improved improved from previous exam. CT of the chest from 07/07/2017 was reviewed and showed bilateral infiltrates with a nodular pattern, cardiomegaly and a left upper lobe nodule or a mass 1.4 cm. The exam was significantly limited due to the lack of contrast. Patient will be scheduled for bronchoscopy on Thursday, pending INR is down to 1.2-1.4 range. Coumadin is on hold, Lovenox was initiated for prophylaxis for chronic A. fib. On 07/09/2017 patient continues to improve from pulmonary standpoint. Lung sounds are positive for inspiratory crackles bilaterally, more so on the right posterior lung cuadra. She states her cough has subsided with significantly less sputum production. No febrile episodes, she remains on 3 L oxygen with O2 sat at 94%. Less short of breath. INR today is 3.4, in view of patient's continued improvement the bronchoscopy will be held. Coumadin will be restarted today continue on oral Ceftin, and nebulized treatments. Objective - Vital Signs Vital signs: Vital Signs Temp 97.6 F 07/09/17 07:00 Pulse 88 07/09/17 11:32 Resp 16 07/09/17 08:00 BP 105/76 07/09/17 07:00 Pulse Ox 94 L 07/09/17 07:00 Intake & Output 07/08/17 07/09/17 07/09/17 18:59 06:59 18:59 Intake Total 450 1475 Output Total 0 0 Balance 0 450 1475 Weight 71 kg 71 kg Intake: IV 450 Vancomycin 1,000 mg In 250 Sodium Chloride 0.9% 250 ml @ 125 mls/hr IVPB Q12H JUAN A Rx#:[id number] ns@20 200 Intake, IV Titration 975 Amount Cefepime 2 gm In Sodium 100 Chloride 0.9% 50 ml @ 100 mls/hr IVPB Q8HR JUAN A Rx# :[id number] Vancomycin 1,000 mg In 875 Sodium Chloride 0.9% 250 ml @ 125 mls/hr IVPB Q12H JUAN A Rx#:[id number] Oral 500 Output: Stool 0 0 Other: Voiding Method Toilet Toilet Toilet # Voids 2 3 - Exam Physical Exam: Revealed a 61-year-old female in no distress. HEENT:[Neck is supple.] [No neck masses.] [No thyromegaly.] [No JVD.] Chest: [Inspiratory crackles and more prominent over the right lower lobe area. No chest wall tenderness, symmetrical expansion noted.] Cardiac Exam: [Irregular irregular Normal S1 and S2, no S3 gallop, 2/6 systolic murmur throughout the precordium.] Abdomen: [Soft, nontender, no megaly, no rebound, no guarding, normal bowel sounds.] Extremities: [No clubbing, no edema, no cyanosis.] Neurological Exam: [No focal neurologic deficit.] Psychiatric: Normal mood, normal affect, normal mental status examination Lymphatics: No lymphadenopathy. - Labs CBC & Chem 7: 07/09/17 06:22 07/09/17 06:22 Labs: Abnormal Lab Results - Last 24 Hours (Table) 07/08/17 07/08/17 07/09/17 Range/Units 17:09 22:38 06:22 Neutrophils # 8.7 H (1.3-7.7) k/uL Lymphocytes # 0.8 L (1.0-4.8) k/uL PT (9.0-12.0) sec INR (<1.2) POC Glucose (mg/dL) 174 H 144 H (75-99) mg/dL 07/09/17 07/09/17 07/09/17 Range/Units 06:22 07:48 11:28 Neutrophils # (1.3-7.7) k/uL Lymphocytes # (1.0-4.8) k/uL PT 33.3 H (9.0-12.0) sec INR 3.4 H (<1.2) POC Glucose (mg/dL) 162 H 143 H (75-99) mg/dL Microbiology - Last 24 Hours (Table) 07/04/17 15:07 Blood Culture - Preliminary Blood No Growth after 96 hours 07/05/17 13:13 Blood Culture - Preliminary Blood No Growth after 72 hours Assessment and Plan Plan: Impression: 1 acute exacerbation of COPD 2 possible acute and recurrent right lower lobe pneumonia 3 chronic atrial fibrillation, strongly doubt congestive heart failure. 4 tobacco dependence syndrome, patient was counseled regarding smoking cessation 5 history of previous CVAs and TIAs. 6 history of ASD closure 7 history of chronic mitral stenosis Recommendation: Patient is making improvement from pulmonary standpoint, decreased chest congestion with decreased sputum production. Patient's sputum culture from 05/24/2017 was positive for Barbara albicans and Pseudomonas fluorescence/putida, which showed sensitivity to cefepime. Hence we'll continue with IV cefepime at this time until new sputum culture results are available. Coumadin will be restarted today, hold bronchoscopy for now as the patient improving. Continue with oral prednisone. I performed a history & physical examination of the patient and discussed their management with my nurse practitioner, Noemi Donald. I reviewed the nurse practitioner's note and agree with the documented findings and plan of care. Lung sounds are positive for respiratory crackles more prominent on the right. Improved air entry noted today. I attest the documentation by the nurse practitioner
[2017-07-09 17:22] LABS: Glucose,Whole Blood 220 mg/dL (75-99)
[2017-07-09] MEDS: WARFARIN 2 MG TAB PO SCH ×2 (19:03→19:50)
[2017-07-09] MEDS: METOPROLOL TARTRATE 50 MG TAB PO SCH (20:17)
[2017-07-09 20:27] LABS: Glucose,Whole Blood 163 mg/dL (75-99)
[2017-07-09] MEDS: guaiFENesin-DM 100-10MG/5ML 10 ML CUP PO PRN (21:19)
[2017-07-10] MEDS: TEMAZEPAM 30 MG CAP PO SCH (00:44)
[2017-07-10] MEDS: ALPRAZolam 0.25 MG TAB PO PRN ×2 (03:41→12:57)
[2017-07-10] MEDS: oxyCODONE-APAP 10-325MG 1 EACH TAB PO PRN ×4 (03:41→17:03)
[2017-07-10] MEDS: methylPREDNISolone SOD SUCCI 125 MG/2 ML VIAL IV SCH ×3 (06:11→17:33)
[2017-07-10] MEDS: SYMBICORT 160-4.5 MCG INHALER INHALATION SCH (07:26)
[2017-07-10] MEDS: IPRATROPIUM-ALBUTEROL 3 ML NEB INHALATION SCH ×3 (07:27→16:10)
[2017-07-10 07:38] LABS: Glucose,Whole Blood 114 mg/dL (75-99)
[2017-07-10 07:47] VITALS: RESP 18
[2017-07-10] MEDS: INSULIN LISPRO (humaLOG) 300 UNIT/3 ML VIAL SQ SCH ×3 (07:48→17:33)
[2017-07-10 08:05] LABS: Basophils % (A) 0 %; CH 32.8; CHCM 33.6; Eosinophils % (A) 0 %; HCT 38.7 % (34.0-46.0); HDW 3.11; HGB 12.3 gm/dL (11.4-16.0); Luc # (Auto) 0.19; Luc % (Auto) 2; Lymphocytes # (A) 0.6 k/uL (1.0-4.8); Lymphocytes % (A) 5 %; MCH 31.3 pg (25.0-35.0); MCHC 31.9 g/dL (31.0-37.0); MCV 98.3 fL (80.0-100.0); Macrocytosis Slight; Mean Platelet Volume 8.4; Monocytes # (A) 0.8 k/uL (0-1.0); Monocytes % (A) 7 %; Neutrophils # (A) 10.4 k/uL (1.3-7.7); Neutrophils % (A) 86 %; RBC 3.94 m/uL (3.80-5.40); RDW 15.8 % (11.5-15.5); WBC 12.1 k/uL (3.8-10.6); WBC (Perox) 12.49
[2017-07-10 08:36] LABS: INR 2.3 (<1.2); Prothrombin Time 22.2 sec (9.0-12.0)
[2017-07-10] MEDS: NICOTINE 14MG/24HR PATCH TRANSDERM SCH (08:54)
[2017-07-10] MEDS: METOPROLOL TARTRATE 50 MG TAB PO SCH (08:59)
[2017-07-10] MEDS ORDERED: FUROSEMIDE 40 MG TAB PO SCH (09:00)
[2017-07-10] MEDS: PANTOPRAZOLE 40 MG TABLET PO SCH (09:00)
[2017-07-10] MEDS: ESCITALOPRAM 10 MG TAB PO SCH (09:00)
[2017-07-10] MEDS: DIGOXIN 125 MCG TAB PO SCH (09:00)
[2017-07-10 10:40] VITALS: BMI 25.2
[2017-07-10] MEDS: VANCOMYCIN 1,000 MG in SODIUM CHLORIDE 0.9% 250 ML IVPB SCH (11:11)
[2017-07-10] MEDS: CEFEPIME 2 GM in SODIUM CHLORIDE 0.9% 50 ML IVPB SCH ×2 (11:12→16:55)
[2017-07-10 11:27] LABS: Glucose,Whole Blood 106 mg/dL (75-99)
--- NOTE | 2017-07-10 13:28 | P.PN ---
Subjective Progress Note Date: 07/10/17 Principal diagnosis: Shortness of breath and productive cough This is a 61-year-old female with history of severe COPD, FEV1 is in the range of 57% at best, patient continues to smoke in spite of her COPD, she was last seen in my office about a week ago, and she was seen mostly for follow-up on her previous episode of pneumonia involving the right lower lobe and episode of exacerbation of COPD. Patient was doing quite well, clinically she recovered fully from her pneumonia, but her chest x-ray continued to show some postinflammatory changes in the right lower lobe. Patient did not require any further courses of antibiotics, and she was treated for a two-week period with Augmentin. On 07/04/2017, patient was readmitted with 1 day history of fever, cough, cough is productive with yellow phlegm, shortness of breath, and wheezing. Patient had a follow-up chest x-ray showing as a disease involving the right lower lobe, not clear whether this is a postinflammatory change or actually recurrent pneumonia involving the right lower lobe again. Patient was placed on antibiotics, bronchodilators, steroids, does not seem to be improving much over the last a few days. Hence this consult was initiated. I evaluated the patient, I felt that the patient needs to be bronchoscoped. However considering the patient is on Coumadin, will hold the Coumadin for the next few days, and I will tentatively planned bronchoscopy on Thursday of this week. In the meantime patient could be given Lovenox as a bridge, will replace Coumadin temporarily. Unfortunately, the patient continues to smoke in spite of her severe COPD and recurrent symptoms of possible right lower lobe pneumonia. On 07/08/2017 patient is seen in follow-up. She states some improvement in her chest congestion, she still has productive cough with moderate amount of thin yellow sputum. Microbiology results were reviewed and showed no growth in the blood cultures after 72 hours. Patient did desaturate to 88% on room air this morning. She is currently on 2 L of oxygen per nasal cannula with O2 saturation of 96%. Her respirations are even and unlabored, but she does become dyspneic with activity. On the examination lung sounds are positive for few scattered wheezes and rhonchi bilaterally however this is much improved improved from previous exam. CT of the chest from 07/07/2017 was reviewed and showed bilateral infiltrates with a nodular pattern, cardiomegaly and a left upper lobe nodule or a mass 1.4 cm. The exam was significantly limited due to the lack of contrast. Patient will be scheduled for bronchoscopy on Thursday, pending INR is down to 1.2-1.4 range. Coumadin is on hold, Lovenox was initiated for prophylaxis for chronic A. fib. On 07/09/2017 patient continues to improve from pulmonary standpoint. Lung sounds are positive for inspiratory crackles bilaterally, more so on the right posterior lung cuadra. She states her cough has subsided with significantly less sputum production. No febrile episodes, she remains on 3 L oxygen with O2 sat at 94%. Less short of breath. INR today is 3.4, in view of patient's continued improvement the bronchoscopy will be held. Coumadin will be restarted today continue on oral Ceftin, and nebulized treatments. On 07/10/2017 patient has made a significant improvement in her pulmonary status since admission. Lung sounds are with a few scattered crackles over left lower base, but no wheezing, no rhonchi. No cough. No febrile episodes. She is on room air, sats around 90-93%. Signs of respiratory difficulty. Patient is stable for discharge home today from pulmonary standpoint. Objective - Vital Signs Vital signs: Vital Signs Temp 98.9 F 07/10/17 07:00 Pulse 80 07/10/17 11:27 Resp 18 07/10/17 07:00 BP 121/72 07/10/17 07:00 Pulse Ox 90 L 07/10/17 07:00 Intake & Output 07/09/17 07/10/17 07/10/17 18:59 06:59 18:59 Intake Total 1475 290 Output Total 0 0 Balance 1475 290 0 Weight 71 kg 71 kg Intake: IV 290 Vancomycin 1,000 mg In 250 Sodium Chloride 0.9% 250 ml @ 125 mls/hr IVPB Q12H JUAN A Rx#:[id number] ns@20 40 Intake, IV Titration 975 Amount Cefepime 2 gm In Sodium 100 Chloride 0.9% 50 ml @ 100 mls/hr IVPB Q8HR JUAN A Rx# :[id number] Vancomycin 1,000 mg In 875 Sodium Chloride 0.9% 250 ml @ 125 mls/hr IVPB Q12H JUAN A Rx#:[id number] Oral 500 Output: Stool 0 0 Other: Voiding Method Toilet Toilet Toilet # Voids 2 1 3 - Exam Physical Exam: Revealed a 61-year-old female in no distress. HEENT:[Neck is supple.] [No neck masses.] [No thyromegaly.] [No JVD.] Chest: [Inspiratory crackles and more prominent over the right lower lobe area. No chest wall tenderness, symmetrical expansion noted.] Cardiac Exam: [Irregular irregular Normal S1 and S2, no S3 gallop, 2/6 systolic murmur throughout the precordium.] Abdomen: [Soft, nontender, no megaly, no rebound, no guarding, normal bowel sounds.] Extremities: [No clubbing, no edema, no cyanosis.] Neurological Exam: [No focal neurologic deficit.] Psychiatric: Normal mood, normal affect, normal mental status examination Lymphatics: No lymphadenopathy. - Labs CBC & Chem 7: 07/10/17 07:41 07/09/17 06:22 Labs: Abnormal Lab Results - Last 24 Hours (Table) 07/09/17 07/09/17 07/10/17 Range/Units 17:20 20:25 07:34 WBC (3.8-10.6) k/uL RDW (11.5-15.5) % Neutrophils # (1.3-7.7) k/uL Lymphocytes # (1.0-4.8) k/uL PT (9.0-12.0) sec INR (<1.2) POC Glucose (mg/dL) 220 H 163 H 114 H (75-99) mg/dL 07/10/17 07/10/17 07/10/17 Range/Units 07:41 07:41 11:25 WBC 12.1 H (3.8-10.6) k/uL RDW 15.8 H (11.5-15.5) % Neutrophils # 10.4 H (1.3-7.7) k/uL Lymphocytes # 0.6 L (1.0-4.8) k/uL PT 22.2 H (9.0-12.0) sec INR 2.3 H (<1.2) POC Glucose (mg/dL) 106 H (75-99) mg/dL Microbiology - Last 24 Hours (Table) 07/04/17 15:07 Blood Culture - Preliminary Blood No Growth after 120 hours 07/05/17 13:13 Blood Culture - Preliminary Blood No Growth after 96 hours Assessment and Plan Plan: Impression: 1 acute exacerbation of COPD 2 possible acute and recurrent right lower lobe pneumonia 3 chronic atrial fibrillation, strongly doubt congestive heart failure. 4 tobacco dependence syndrome, patient was counseled regarding smoking cessation 5 history of previous CVAs and TIAs. 6 history of ASD closure 7 history of chronic mitral stenosis Recommendation: Patient is making improvement from pulmonary standpoint, decreased chest congestion with decreased sputum production. Patient is stable for discharge home today from pulmonary standpoint on 10 day course of Ceftin 500 mg by mouth twice a day and prednisone taper. Follow-up with Dr. Arellano in the office in one week I performed a history & physical examination of the patient and discussed their management with my nurse practitioner, Noemi Donald. I reviewed the nurse practitioner's note and agree with the documented findings and plan of care. Lung sounds are positive for respiratory crackles more prominent on the right. Improved air entry noted today. I attest the documentation by the nurse practitioner
[2017-07-10] MEDS ORDERED: MORPHINE SULFATE 10 MG/ML SYRINGE IV PRN (13:50)
[2017-07-10 14:34] VITALS: BP 113/64; TEMP 98
--- NOTE | 2017-07-10 16:17 | P.DS ---
Providers Date of admission: 07/04/17 17:03 Expected date of discharge: 07/10/17 Attending physician: Raphael Madrid Consults: 07/07/17 12:17 Consult Physician Urgent Consulting Provider: Tanmay Dave Consult Reason/Comments: copd pneumonia Do you want consulting provider notified?: Yes Primary care physician: Raphael Egan Hospital Course: Final Diagnoses: 1. Acute COPD exacerbation 2. Possible acute, recurrent right lower lobe pneumonia 3. Chronic atrial fibrillation, doubt congestive heart failure 4. Nicotine dependence, 5. Chronic mitral stenosis with prior balloon valvuloplasty, history of ASD closure 6. History of CVAs and TIAs 7. Pulmonary hypertension Hospital course: This is a 61-year-old female admitted with acute COPD exacerbation, possible recurrent right lower lobe pneumonia and multiple other medical issues. Maintained on IV antibiotics, IV steroids, nebulized bronchodilators. Evaluated by pulmonary and cardiology. Significant clinical improvement. Patient has been cleared for discharge by all consults. Patient is being discharged home in a stable condition with guarded prognosis. The impression and plan of care has been dictated as directed. : I performed a history and examination of this patient, discussed the same with the dictator. I agree with the dictator's note ,documented as a scribe. Any additional findings or plans will be noted. Plan - Discharge Summary Discharge Rx Participant: No New Discharge Prescriptions: New Cefuroxime Axetil [Ceftin] 500 mg PO BID #20 tab Metoprolol Tartrate [Lopressor] 50 mg PO BID #60 tab predniSONE 10 mg PO DIRECTED #30 tab Continue oxyCODONE-APAP 10-325MG [Percocet 10-325 mg] 1 tab PO Q4H PRN PRN Reason: Pain Warfarin [Coumadin] 2 mg PO HS Temazepam [Restoril] 30 mg PO HS Loratadine [Claritin] 10 mg PO DAILY Digoxin [Lanoxin] 125 mcg PO DAILY ALPRAZolam [Xanax] 0.25 mg PO TID PRN #20 tab PRN Reason: Anxiety Budesonide-Formot 160-4.5 Mcg [Symbicort 160-4.5 Mcg Inhaler] 2 puff INHALATION RT-BID #1 inh Ipratropium-Albuterol Nebulize [Duoneb 0.5 mg-3 mg/3 ml Soln] 3 ml INHALATION RT-QID #120 neb Nicotine 14Mg/24Hr Patch [Habitrol] 1 patch TRANSDERM DAILY #30 patch Pantoprazole [Protonix] 40 mg PO AC-BRKFST #30 tab Sennosides [Senokot] 8.6 mg PO BID PRN #60 tab PRN Reason: Constipation Escitalopram [Lexapro] 10 mg PO DAILY #30 Furosemide [Lasix] 40 mg PO DAILY #0 L.acidoph,Paracasei, B.lactis [Probiotic] 1 cap PO DAILY Discontinued Metoprolol Succinate (ER) [Toprol XL] 25 mg PO DAILY #30 tab Discharge Medication List Digoxin [Lanoxin] 125 mcg PO DAILY 05/22/17 [History] Loratadine [Claritin] 10 mg PO DAILY 05/22/17 [History] Temazepam [Restoril] 30 mg PO HS 05/22/17 [History] Warfarin [Coumadin] 2 mg PO HS 05/22/17 [History] oxyCODONE-APAP 10-325MG [Percocet 10-325 mg] 1 tab PO Q4H PRN 05/22/17 [History] ALPRAZolam [Xanax] 0.25 mg PO TID PRN #20 tab 05/29/17 [Rx] Budesonide-Formot 160-4.5 Mcg [Symbicort 160-4.5 Mcg Inhaler] 2 puff INHALATION RT-BID #1 inh 05/29/17 [Rx] Escitalopram [Lexapro] 10 mg PO DAILY #30 05/29/17 [Rx] Furosemide [Lasix] 40 mg PO DAILY #0 05/29/17 [Rx] Ipratropium-Albuterol Nebulize [Duoneb 0.5 mg-3 mg/3 ml Soln] 3 ml INHALATION RT -QID #120 neb 05/29/17 [Rx] Nicotine 14Mg/24Hr Patch [Habitrol] 1 patch TRANSDERM DAILY #30 patch 05/29/17 [ Rx] Pantoprazole [Protonix] 40 mg PO AC-BRKFST #30 tab 05/29/17 [Rx] Sennosides [Senokot] 8.6 mg PO BID PRN #60 tab 05/29/17 [Rx] L.acidoph,Paracasei, B.lactis [Probiotic] 1 cap PO DAILY 07/04/17 [History] Cefuroxime Axetil [Ceftin] 500 mg PO BID #20 tab 07/10/17 [Rx] Metoprolol Tartrate [Lopressor] 50 mg PO BID #60 tab 07/10/17 [Rx] predniSONE 10 mg PO DIRECTED #30 tab 07/10/17 [Rx] Follow up Appointment(s)/Referral(s): Raphael Egan MD [Primary Care Provider] - 3 Days Tanmay Dave MD [STAFF PHYSICIAN] - [facility], [NON-STAFF] - 1 Week Ambulatory/Diagnostic Orders: Complete Blood Count w/diff [LAB.AMB] Time Frame: 3 Days, Location: Determined By Patient Patient Instructions/Handouts: COPD (Chronic Obstructive Pulmonary Disease) (DC ), Chronic Lung Disease and Infection Prevention (DC) Activity/Diet/Wound Care/Special Instructions: Confirm cardiology follow up appointment prior to discharge.
[2017-07-10 16:19] VITALS: PULSE 79
[2017-07-10 16:52] LABS: Glucose,Whole Blood 115 mg/dL (75-99)
[2017-07-10] MEDS: WARFARIN 2 MG TAB PO SCH (17:34)
--- NOTE | 2017-07-12 16:02 | CONS ---
CONSULTATION Mrs. Warren is a 61-year-old female, who was seen in the emergency room early in the morning for consideration of possible STEMI. This patient presented to the emergency room with a complaint of back pain and chest pain. The patient also has been having cough with whitish yellow expectoration. She denied any fever or chills. EKG showed evidence of atrial fibrillation with diffuse ST-segment depression. On further questioning, this patient has a known history of mitral stenosis. She was recently admitted in the hospital with acute exacerbation of COPD. The patient has a prior history of mitral valvuloplasty. Echocardiogram done during the last admission showed evidence of severe mitral stenosis. The patient does not have any history of coronary artery disease. Last cardiac catheterization done in June of 2016 revealing normal coronary arteries. The patient's overall picture was not suggestive for acute myocardial infarction. ST-segment depression is probably due to atrial fibrillation and rapid ventricular response. In view of that the patient was not taken for the cardiac catheterization. The patient has been having some difficulty in shortness of breath. This patient has a prior history of stroke, chronic persistent atrial fibrillation, ASD closure, valvuloplasty. The patient has a severe mitral stenosis. She was supposed to have mitral valve replacement but it has been delayed for over the last several months. PAST MEDICAL HISTORY: Includes COPD, chronic atrial fibrillation. The patient has a chronic back pain. History of CVA and multiple TIAs. Prior history of mitral valvuloplasty, cholecystectomy, cardiac catheterization in June of 2016, bilateral hand surgery and ankle surgery. HOME MEDICATIONS: Include prednisone, Coumadin, Restoril, Senokot, Claritin, Lasix 40 mg daily, Lexapro, Lanoxin, and Xanax. The patient was also on Lopressor 50 mg b.i.d. PHYSICAL EXAMINATION: At present reveals a 61-year-old female, who is thinly built, in the emergency room. The patient's heart rate initially was 130-140. Blood pressure was 110/65 mmHg. HEENT examination was negative. Neck was supple. Jugular venous pressure was elevated. HEART: There was a mild left parasternal heave. First and second heart sounds are normal. There is a systolic murmur heard. Lungs examination reveals bilateral scattered wheezes. Abdomen is soft. EXTREMITIES: Peripheral pulses 1+. EKG showed evidence of atrial fibrillation with diffuse ST-T changes. LABORATORY TESTS: Done in the emergency room reveals hemoglobin of 14.4. INR was 1.3. Electrolytes were normal. Creatinine was 0.6. An initial troponin was 0.085. Chest x-ray was suggestive of mild congestive heart failure. IMPRESSION: This patient is admitted with atypical back pain and chest pain. EKG is suggestive of atrial fibrillation with rapid ventricular response and ST changes secondary to it. Overall picture is not suggestive of acute ST-segment elevation myocardial infarction. The patient has evidence of severe mitral stenosis and pulmonary hypertension. The patient has a probably acute bronchitis and mild congestive cardiac failure. RECOMMENDATIONS: We will recommend to start the patient on heparin drip as her INR is low and we will start her on Cardizem drip to control the rate. The patient will be started on antibiotics as well as the Lasix. Patient's overall long-term prognosis is poor. BILL / FATOUMATA: [id number] /
--- NOTE | 2017-07-15 09:31 | CDI ---
In responding to this query, please exercise your independent professional judgment. The [facility] Coding Staff and Clinical Documentation Specialists appreciate your assistance in clarifying documentation, maintaining compliance with coding guidelines, accurately documenting patients condition and capturing severity of illness. The fact that a question is asked does not imply that any particular answer is desired or expected. Communication forms are a method of clarifying documentation and are not made part of the Legal Health Record. Thank you in advance for your clarification. Last Revision, July 2015 Rach Lizarraga [address] [facility] [place] [address] Documentation Clarification Form Date: 07/15/2017 8:40:00 AM From: Destini Sanchez Phone: Admit Date: 07/04/2017 5:03:00 PM Patient Name: Vinicio Warren Visit Number: [id number] Discharge Date: Pauline Sue Sepsis was documented in the H&P, Dr. Baumann's 07/06 progress note and Vaishali Chavez's 07/07 - 07/09 progress notes but not in the discharge summary. Patient history/risk factors: Patient was admitted with possible healthcare associated pneumonia. and COPD exacerbation. Clinical Indicators: fever and cough Lab findings: WBCs 5.1 on admission and down to 2.8 the next morning, Lactic acid was 2.5 on admission, Blood cultures showed no growth. Vital Signs: T. 101.9, P. 102, R. 117, BP 111/71 Treatment: IV Cefepime on 07/04 changed to IV Vancomycin on 07/04 In your professional opinion, can you please clarify if Sepsis was Ruled In or Ruled Out? Other Unable to determine Please document in your discharge summary in order to capture severity of illness and risk of mortality. Include clinical findings that support your diagnosis. FYI: Press F11 to launch patient chart. If you have a question about this query, please contact Yael Sargent territory account manager at [phone] between 8am and 5pm. DERRELL
--- NOTE | 2017-07-15 09:50 | CDI ---
In responding to this query, please exercise your independent professional judgment. The [facility] Coding Staff and Clinical Documentation Specialists appreciate your assistance in clarifying documentation, maintaining compliance with coding guidelines, accurately documenting patients condition and capturing severity of illness. The fact that a question is asked does not imply that any particular answer is desired or expected. Communication forms are a method of clarifying documentation and are not made part of the Legal Health Record. Thank you in advance for your clarification. Last Revision, July 2015 Rachbetty Lizarraga [address] [facility] [place] [address] Documentation Clarification Form Date: 07/15/2017 9:34:00 AM From: Destini Laura Phone: Admit Date: 07/04/2017 5:03:00 PM Patient Name: Vinicio Warren Visit Number: [id number] Discharge Date: Pauline Sue Pneumonia was documented throughout the chart. History/Risk Factors: Patient has a history of COPD which was exacerbated on admission. Patient is on oxygen at home. Patient has had pneumonia previously but not on antibiotics on admit. Clinical Indicators: fever and cough. WBC/Left shift: WBCs on admit were 5.1 then down to 2.8 the next morning, Neutrophils 3.9 on admit then up to 11.3 on 07/06. X-ray: Moderate cardiomegaly and extensive interstitial changes which appear to be in part chronic. Correlate to exclude mild CHF, possible superimposed on COPD. Severe bronchitis or interstitial pneumonitis are additional considerations. Lung/Breathing assessment: Shortness of breath on admission, expiratory wheezing, bibasilar crackles, rhonchi and accessory muscle use. Treatment: Antibiotics: IV Cefepime on 07/04 and changed to IV Vancomycin on 07/04. O2: 4 liters Breathing Tx: Ventolin nebulized and Duoneb inhalation on 07/04 then Symbicort inhalation. In order to capture the severity of condition, please clarify if the condition signifies and you are treating for: Aspiration Pneumonia, identify if: Due to solids or liquids Due to anesthesia during L/D Due to anesthesia during puerperium Bacterial Pneumonia, specify causal organism (if known) Gram Negative Pneumonia Due to Strep Due to Staph Due to E. Coli Other bacteria (specify) Viral Pneumonia, specify casual organism (if known) Ventilator Associated Pneumonia Healthcare Acquired Pneumonia/Pneumonia, unspecified Unable to determine Link any associated conditions to the pneumonia: Influenza with secondary gram negative pneumonia Sepsis due to pneumonia Acute respiratory failure due to pneumonia Other, please specify Please document in your discharge summary in order to capture severity of illness and risk of mortality. Include clinical findings that support your diagnosis. FYI: Press F11 to launch patient chart. If you have a question about this query, please contact Yael Sargent, capacity manager at [phone]. [facility]
== END 2017-07-10 18:21 | disposition home health service (06) | DRG 871 ==
LOC: EC 13:55 → 6SEL 17:03 → 5MS5E 07-07 05:27
PROVIDERS: ADMIT Family Medicine; ATTEND Family Medicine
DX: A41.9 Sepsis, unspecified organism (principal); J18.9 Pneumonia, unspecified organism; J96.22 Acute and chronic respiratory failure with hypercapnia; I50.32 Chronic diastolic (congestive) heart failure; J44.1 Chronic obstructive pulmonary disease with (acute) exacerbation; I48.1 Persistent atrial fibrillation; J44.0 Chronic obstructive pulmonary disease with (acute) lower respiratory infection; I11.0 Hypertensive heart disease with heart failure; I27.20 Pulmonary hypertension, unspecified; I48.2 Chronic atrial fibrillation; I08.1 Rheumatic disorders of both mitral and tricuspid valves; F17.200 Nicotine dependence, unspecified, uncomplicated; F32.9 Major depressive disorder, single episode, unspecified; I25.10 Atherosclerotic heart disease of native coronary artery without angina pectoris; G89.29 Other chronic pain; M54.9 Dorsalgia, unspecified; R91.1 Solitary pulmonary nodule; E87.6 Hypokalemia; R74.8 Abnormal levels of other serum enzymes; I69.998 Other sequelae following unspecified cerebrovascular disease; Z99.81 Dependence on supplemental oxygen; Z79.01 Long term (current) use of anticoagulants; Z79.899 Other long term (current) drug therapy; Z88.1 Allergy status to other antibiotic agents; Z88.2 Allergy status to sulfonamides; Z82.49 Family history of ischemic heart disease and other diseases of the circulatory system
CPT/HCPCS: 36415; 71010; 71250; 80048; 80053; 80202; 81003; 82272; 82550; 82553; 82565; 82803; 83605; 83690; 83735; 83880; 84443; 84484; 84702; 85025; 85610; 85730; 87040; 93005; 93306; 94640; 94760; 96365; 96366; 96368; 96375; 96376; 99291

== ENCOUNTER 2017-07-26 18:30 | Inpatient (IN) | payer MEDICARE, BC ==
[2017-07-26] MEDS ORDERED: SODIUM CHLORIDE 0.9% 1,000 ML IV STA (18:32)
[2017-07-26] MEDS ORDERED: MAGNESIUM SULFATE-D5W PMX 1 GM in DEXTROSE/WATER 1 100ML.BAG IVPB STA (18:32)
[2017-07-26] MEDS ORDERED: ALBUTEROL NEBULIZED 2.5 MG/3 ML INHALATION STA (18:32)
[2017-07-26] MEDS ORDERED: IPRATROPIUM 0.5 MG/2.5 ML NEBU INHALATION STA (18:32)
--- NOTE | 2017-07-26 18:43 | ED ---
SOB HPI - General Stated Complaint: Chest Pain Time Seen by Provider: 07/26/17 18:32 Source: patient, EMS Mode of arrival: EMS - History of Present Illness Initial Comments: This is a 61-year-old female with a history of bronchitis smoker who started developing some chest pains or set of her chest and shortness of breath while driving. She also has a history of atrial fibrillation. She was brought in by EMS and noted to be in rapid ventricular response. She was given 2 updrafts as well as IV Solu-Medrol with minimal relief. She states she still feels very short of breath. She barely does seek desaturate easily. He does complaints of fevers chills and sweats. She has been coughing up white phlegm. She recently was treated for bronchitis. MD Complaint: shortness of breath, cough - Related Data Home Medications Medication Instructions Recorded Confirmed Digoxin [Lanoxin] 125 mcg PO DAILY 05/22/17 07/26/17 Loratadine [Claritin] 10 mg PO DAILY 05/22/17 07/26/17 Temazepam [Restoril] 30 mg PO HS 05/22/17 07/26/17 Warfarin [Coumadin] 2 mg PO HS 05/22/17 07/26/17 L.acidoph,Paracasei, B.lactis 1 cap PO DAILY 07/04/17 07/26/17 [Probiotic] methylPREDNISolone [Medrol Dose See Taper PO DIRECTED 07/26/17 07/26/17 Pack] Previous Rx's Medication Instructions Recorded ALPRAZolam [Xanax] 0.25 mg PO TID PRN #20 tab 05/29/17 Escitalopram [Lexapro] 10 mg PO DAILY #30 05/29/17 Furosemide [Lasix] 40 mg PO DAILY #0 05/29/17 Ipratropium-Albuterol Nebulize 3 ml INHALATION RT-QID #120 neb 05/29/17 [Duoneb 0.5 mg-3 mg/3 ml Soln] Nicotine 14Mg/24Hr Patch [Habitrol] 1 patch TRANSDERM DAILY #30 patch 05/29/17 Pantoprazole [Protonix] 40 mg PO AC-BRKFST #30 tab 05/29/17 Sennosides [Senokot] 8.6 mg PO BID PRN #60 tab 05/29/17 Metoprolol Tartrate [Lopressor] 50 mg PO BID #60 tab 07/10/17 Budesonide-Formot 160-4.5 Mcg 2 puff INHALATION RT-BID #1 inh 07/16/17 [Symbicort 160-4.5 Mcg Inhaler] Calcium Carbonate [Tums] 500 mg PO TID PRN chew 07/16/17 Levofloxacin [Levaquin] 500 mg PO DAILY #5 tab 07/16/17 guaiFENesin SYRUP 100MG/5ML 200 mg PO Q6H PRN cup 07/16/17 [Robitussin] traMADol HCl [Ultram] 50 mg PO Q6H PRN #20 tab 07/16/17 Allergies Allergy/AdvReac Type Severity Reaction Status Date / Time ciprofloxacin [From Cipro] Allergy Rash/Hives Verified 07/26/17 19:46 Sulfa (Sulfonamide Allergy Rash/Hives Verified 07/26/17 19:46 Antibiotics) Review of Systems ROS Statement: Those systems with pertinent positive or pertinent negative responses have been documented in the HPI. ROS Other: All systems not noted in ROS Statement are negative. Past Medical History Past Medical History: Atrial Fibrillation, Coronary Artery Disease (CAD), Heart Failure, CVA/TIA, Hypertension, Pneumonia Additional Past Medical History / Comment(s): COPD, chronic atrial fibrillation , chronic back pain, CVA/multiple TIA, and issues weakness and shuffling of bilateral feet due to previous stroke, CHF, valvular heart disease-possibly Mitral valve stenosis post valvuloplasty (2012), ASD closure, depression, previous pneumonias 2011 and 2015 History of Any Multi-Drug Resistant Organisms: None Reported Past Surgical History: Cholecystectomy, Heart Catheterization, Orthopedic Surgery, Tonsillectomy Additional Past Surgical History / Comment(s): ankle surgery (right ankle), Bilateral hand surgery- Carap Tunnel. D'C for miscarriage. Past Anesthesia/Blood Transfusion Reactions: No Reported Reaction Past Psychological History: No Psychological Hx Reported, Depression Smoking Status: Current every day smoker Past Alcohol Use History: None Reported Past Drug Use History: None Reported - Past Family History Mother Family Medical History: No Reported History, Blood Disorder, Dementia Additional Family Medical History / Comment(s): at age 84 from dementia and blood infection Father Family Medical History: Congestive Heart Failure (CHF), Myocardial Infarction ( [place]) Additional Family Medical History / Comment(s): heart failure, from heart attack at 74 in 1999 Sister(s) Family Medical History: No Reported History Additional Family Medical History / Comment(s): from car accident General Exam - General Exam Comments Initial Comments: This is a well-developed well-nourished awake alert oriented 3 female she is in obvious respiratory distress General appearance: alert, anxious, in distress Head exam: Present: atraumatic, normocephalic, normal inspection Eye exam: Present: normal appearance, PERRL, EOMI. Absent: scleral icterus, conjunctival injection, periorbital swelling ENT exam: Present: normal exam, mucous membranes moist Neck exam: Present: normal inspection. Absent: tenderness, meningismus, lymphadenopathy Respiratory exam: Present: wheezes, chest wall tenderness, accessory muscle use , decreased breath sounds. Absent: respiratory distress, rales, rhonchi, stridor Cardiovascular Exam: Present: regular rate, normal rhythm, tachycardia, normal heart sounds. Absent: systolic murmur, diastolic murmur, rubs, gallop, clicks GI/Abdominal exam: Present: soft, normal bowel sounds. Absent: distended, tenderness, guarding, rebound, rigid Extremities exam: Present: normal inspection, full ROM, normal capillary refill. Absent: tenderness, pedal edema, joint swelling, calf tenderness Back exam: Present: normal inspection Neurological exam: Present: alert, oriented X3, CN II-XII intact Psychiatric exam: Present: normal affect, normal mood Skin exam: Present: warm, intact, normal color, diaphoretic. Absent: rash Course Vital Signs 07/26/17 07/26/17 07/26/17 18:35 18:40 18:55 Temperature 99.4 F Pulse Rate 132 H 150 H 140 H Respiratory 28 H Rate Blood Pressure O2 Sat by Pulse 94 L Oximetry 07/26/17 07/26/17 07/26/17 19:04 19:21 19:40 Temperature Pulse Rate 131 H 122 H 130 H Respiratory 40 H Rate Blood Pressure 162/103 O2 Sat by Pulse 90 L Oximetry 07/26/17 07/26/17 07/26/17 20:00 20:11 20:17 Temperature Pulse Rate 147 H 134 H 121 H Respiratory 36 H 36 H 38 H Rate Blood Pressure 191/102 182/139 113/66 O2 Sat by Pulse 88 L 89 L 92 L Oximetry 07/26/17 07/26/17 20:21 21:26 Temperature 98.9 F Pulse Rate 132 H 140 H Respiratory 38 H 42 H Rate Blood Pressure 111/72 136/66 O2 Sat by Pulse 91 L 90 L Oximetry - Reevaluation(s) Reevaluation #1: 07/26/17 22:12 Reevaluation patient reveals she was still dyspneic initially. IV Lasix and nitro paste started as it was suspected that the patient has CHF in addition to A. fib RVR. Her rate was variable. Reevaluation #2: 07/26/17 22:14 I did discuss smoking cessation with the patient and 2 occasions the total time 3.1 minutes. We did discuss risks and benefits. Medical Decision Making - Medical Decision Making I did discuss findings with patient and with Dr. Manning who is covering Dr. Egan. Patient be admitted with cardiology consultation. - Lab Data Result diagrams: 07/26/17 19:51 07/26/17 19:08 Lab Results 07/26/17 07/26/17 07/26/17 Range/Units 19:08 19:08 19:08 WBC (3.8-10.6) k/uL RBC (3.80-5.40) m/uL Hgb (11.4-16.0) gm/dL Hct (34.0-46.0) % MCV (80.0-100.0) fL MCH (25.0-35.0) pg MCHC (31.0-37.0) g/dL RDW (11.5-15.5) % Plt Count (150-450) k/uL Neutrophils % % Lymphocytes % % Monocytes % % Eosinophils % % Basophils % % Neutrophils # (1.3-7.7) k/uL Lymphocytes # (1.0-4.8) k/uL Monocytes # (0-1.0) k/uL Eosinophils # (0-0.7) k/uL Basophils # (0-0.2) k/uL Hypochromasia Macrocytosis PT 11.4 (9.0-12.0) sec INR 1.1 (<1.2) APTT 18.5 L (22.0-30.0) sec D-Dimer 1.28 H (<0.60) mg/L FEU Sodium 141 (137-145) mmol/L Potassium 4.6 (3.5-5.1) mmol/L Chloride 113 H (98-107) mmol/L Carbon Dioxide 17 L (22-30) mmol/L Anion Gap 11 mmol/L BUN 10 (7-17) mg/dL Creatinine 0.70 (0.52-1.04) mg/dL Est GFR (MDRD) Af Amer >60 (>60 ml/min/1.73 sqM) Est GFR (MDRD) Non-Af >60 (>60 ml/min/1.73 sqM) Glucose 226 H (74-99) mg/dL Calcium 8.9 (8.4-10.2) mg/dL Magnesium 1.9 (1.6-2.3) mg/dL Total Bilirubin 1.2 (0.2-1.3) mg/dL AST 41 H (14-36) U/L ALT 38 (9-52) U/L Alkaline Phosphatase 123 (38-126) U/L Total Creatine Kinase 44 (30-135) U/L CK-MB (CK-2) 1.9 (0.0-2.4) ng/mL CK-MB (CK-2) Rel Index 4.3 Troponin I 0.018 (0.000-0.034) ng/mL NT-Pro-B Natriuret Pep pg/mL Total Protein 6.9 (6.3-8.2) g/dL Albumin 4.0 (3.5-5.0) g/dL Digoxin ng/mL 07/26/17 07/26/17 07/26/17 Range/Units 19:08 19:51 19:51 WBC 21.4 H (3.8-10.6) k/uL RBC 4.33 (3.80-5.40) m/uL Hgb 13.7 (11.4-16.0) gm/dL Hct 44.2 (34.0-46.0) % MCV 101.9 H (80.0-100.0) fL MCH 31.6 (25.0-35.0) pg MCHC 31.0 (31.0-37.0) g/dL RDW 15.5 (11.5-15.5) % Plt Count 171 (150-450) k/uL Neutrophils % 93 % Lymphocytes % 2 % Monocytes % 4 % Eosinophils % 1 % Basophils % 0 % Neutrophils # 19.9 H (1.3-7.7) k/uL Lymphocytes # 0.5 L (1.0-4.8) k/uL Monocytes # 0.8 (0-1.0) k/uL Eosinophils # 0.1 (0-0.7) k/uL Basophils # 0.1 (0-0.2) k/uL Hypochromasia Slight Macrocytosis Slight PT (9.0-12.0) sec INR (<1.2) APTT (22.0-30.0) sec D-Dimer (<0.60) mg/L FEU Sodium (137-145) mmol/L Potassium (3.5-5.1) mmol/L Chloride (98-107) mmol/L Carbon Dioxide (22-30) mmol/L Anion Gap mmol/L BUN (7-17) mg/dL Creatinine (0.52-1.04) mg/dL Est GFR (MDRD) Af Amer (>60 ml/min/1.73 sqM) Est GFR (MDRD) Non-Af (>60 ml/min/1.73 sqM) Glucose (74-99) mg/dL Calcium (8.4-10.2) mg/dL Magnesium (1.6-2.3) mg/dL Total Bilirubin (0.2-1.3) mg/dL AST (14-36) U/L ALT (9-52) U/L Alkaline Phosphatase (38-126) U/L Total Creatine Kinase (30-135) U/L CK-MB (CK-2) (0.0-2.4) ng/mL CK-MB (CK-2) Rel Index Troponin I (0.000-0.034) ng/mL NT-Pro-B Natriuret Pep 4460 pg/mL Total Protein (6.3-8.2) g/dL Albumin (3.5-5.0) g/dL Digoxin 0.5 ng/mL - EKG Data -: EKG Interpreted by Me (Atrial fibrillation rate of 143 QRS 80 QT since QTC of 314/484 right scott a) - Radiology Data Radiology results: report reviewed (Imaging shows evidence of congestive failure CT showed no evidence of PE though was a poor study there is evidence of pulmonary edema CHF.), image reviewed Critical Care Time Critical Care Time: Yes Critical Care Time: 39 minutes of critical care time which includes initial monitoring of the EMS run and discussed with paramedics history physical labs x-rays. Multiple reevaluation the patient to responsive therapy. Documentation the above. Discussion with the admitting physician. Admission orders. Disposition Clinical Impression: Pulmonary edema, Congestive heart failure, Rapid atrial fibrillation, COPD exacerbation, Hypoxemia, Bronchospasm, acute Disposition: ADMITTED IP TO THIS HOSP Condition: Stable Referrals: Raphael Egan MD [Primary Care Provider] - 1-2 days
[2017-07-26] MEDS ORDERED: LORazepam 2 MG/ML INJ IV STA (19:23)
--- NOTE | 2017-07-26 19:28 | XR ---
EXAMINATION TYPE: XR chest 1V portable DATE OF EXAM: 07/26/2017 Comparison: 07/14/2017 Clinical History: 61 year-old female shortness of breath and dyspnea Findings: Heart is borderline to mildly enlarged. Diffuse interstitial and patchy confluent airspace opacity pa rticularly in the right perihilar region. Suggestion of some septal lines suggest that the peripheral left lower lung. There may be a trace right effusion. Impression: Interstitial developing patchy airspace opacity, right greater than left. There may be a trace right effusion. Correlate for moderate CHF.
[2017-07-26 19:32] LABS: ALT 38 U/L (9-52); AST 41 U/L (14-36); Alkaline Phosphatase 123 U/L (38-126); Anion Gap 11 mmol/L; Blood Urea Nitrogen 10 mg/dL (7-17); Calcium 8.9 mg/dL (8.4-10.2); Carbon Dioxide 17 mmol/L (22-30); Chloride 113 mmol/L (98-107); Glucose 226 mg/dL (74-99); Magnesium 1.9 mg/dL (1.6-2.3); Non-African American GFR(MDRD) >60 (>60 ml/min/1.73 sqM); Potassium 4.6 mmol/L (3.5-5.1); Sodium 141 mmol/L (137-145); Total Bilirubin 1.2 mg/dL (0.2-1.3); Total Protein 6.9 g/dL (6.3-8.2)
[2017-07-26] MEDS ORDERED: HYDROcodone/APAP 5-325MG 1 EACH TAB PO STA (19:42)
[2017-07-26 19:57] LABS: Creatine Kinase MB 1.9 ng/mL (0.0-2.4); Troponin I 0.018 ng/mL (0.000-0.034)
[2017-07-26 20:01] LABS: Basophils # (A) 0.1 k/uL (0-0.2); Basophils % (A) 0 %; CH 31.6; CHCM 31.2; Eosinophils # (A) 0.1 k/uL (0-0.7); Eosinophils % (A) 1 %; HCT 44.2 % (34.0-46.0); HDW 2.77; HGB 13.7 gm/dL (11.4-16.0); Hypochromasia Slight; Luc # (Auto) 0.06; Luc % (Auto) 0; Lymphocytes # (A) 0.5 k/uL (1.0-4.8); Lymphocytes % (A) 2 %; MCH 31.6 pg (25.0-35.0); MCV 101.9 fL (80.0-100.0); Macrocytosis Slight; Mean Platelet Volume 7.7; Monocytes # (A) 0.8 k/uL (0-1.0); Monocytes % (A) 4 %; Neutrophils # (A) 19.9 k/uL (1.3-7.7); Neutrophils % (A) 93 %; RBC 4.33 m/uL (3.80-5.40); RDW 15.5 % (11.5-15.5); WBC 21.4 k/uL (3.8-10.6); WBC (Perox) 22.07
[2017-07-26] MEDS ORDERED: FUROSEMIDE 10 MG/ML 4 ML VIAL IV STA (20:03)
[2017-07-26] MEDS ORDERED: DIGOXIN 250 MCG/ML 2 ML AMP IVP ONE (20:04)
[2017-07-26] MEDS ORDERED: NITROGLYCERIN OINT 1 INCH/GM PACKET TOPICAL STA (20:04)
[2017-07-26 20:15] LABS: INR 1.1 (<1.2); Prothrombin Time 11.4 sec (9.0-12.0)
[2017-07-26 20:29] LABS: Partial Thromboplastin Time 18.5 sec (22.0-30.0)
[2017-07-26] MEDS ORDERED: RX INFO: IV CONTRAST WAS GIVEN 1 EACH MISC MISCELLANE PRN (20:35)
--- NOTE | 2017-07-26 21:27 | CT ---
EXAMINATION TYPE: CT angio chest DATE OF EXAM: 07/26/2017 COMPARISON: Radiograph same day and CT 07/07/2017 HISTORY: 61 year-old female shortness of breath and chest pain TECHNIQUE: Contiguous axial scanning of the chest performed with IV Contrast, patient injected with 8 5 mL of Omnipaque 350. Coronal/sagittal MIP reconstructions performed. CT DLP: 191.7 mGycm Automated exposure control for dose reduction was used. FINDINGS: The heart is enlarged but there is marked left atrial dilatation. Coronary vessel calcifications are present in remarkable for coronary artery disease. Aorta is normal caliber with conventional arch vessel branching anatomy. Mediastinal lymph nodes measure up to 1.2 cm in the pretracheal region, slightly larger from prior, p robably reactive. Large caliber to the main right and left pulmonary arteries is 3.4 and 3.2 cm, respectively, suggesti ve of pulmonary arterial hypertension. There is motion artifact at the lung bases. Many of the basilar segmental lower lobe arterial branche s are nondiagnostic. Otherwise, no evidence for pulmonary embolus in the upper midlungs. There are small effusions, right greater than left and mild diffuse anasarca-type change. Focal right middle lobe opacity. Strandy areas of scarring in the lower lungs. Septal lines with patc hy and confluent right greater than left groundglass opacities. Mild diffuse anasarca type changes. Visualized upper abdomen shows cholecystectomy clips. Cortical defect lateral left kidney suggests pr ior vascular or infectious insult. Bones: No osseous destructive process. Motion artifacts along the sternum. IMPRESSION: 1. MOTION ARTIFACTS DEGRADING ASSESSMENT FOR PULMONARY EMBOLUS. MANY OF THE SEGMENTAL BASILAR LOWER L OBE BRANCHES ARE NONDIAGNOSTIC. NO EVIDENCE FOR PULMONARY EMBOLUS IN THE UPPER AND MIDLUNGS. 2. CARDIOMEGALY ESPECIALLY WITH MARKED LEFT ATRIAL DILATATION, PULMONARY ARTERIAL HYPERTENSION, SMALL RIGHT GREATER THAN LEFT EFFUSIONS, ANASARCA-TYPE CHANGE, AND PATCHY AND CONFLUENT GROUNDGLASS. CONST ELLATION OF FINDINGS SUGGEST CHF WITH MILD PULMONARY EDEMA. 3. FOCAL OPACITY RIGHT MIDDLE LOBE COULD REPRESENT A MORE CONFLUENT AREA OF PULMONARY EDEMA. CORRELAT E TO EXCLUDE PNEUMONIA. FOLLOW-UP AFTER TREATMENT TO ASSESS FOR CLEARANCE.
[2017-07-26] MEDS ORDERED: FUROSEMIDE 10 MG/ML 4 ML VIAL IV SCH (22:15)
[2017-07-26] MEDS ORDERED: CALCIUM CARBONATE 500 MG CHEWABLE PO PRN (22:18)
[2017-07-26] MEDS ORDERED: SENNOSIDES 8.6 MG TAB PO PRN (22:18)
[2017-07-26] MEDS ORDERED: traMADol 50 MG TAB PO PRN (22:18)
[2017-07-26] MEDS ORDERED: guaiFENesin SYRUP 100MG/5ML 200 MG/10 ML CUP PO PRN (22:18)
[2017-07-26] MEDS ORDERED: DILTIAZEM 125 MG in SODIUM CHLORIDE 0.9% 100 ML IV ONE (22:20)
[2017-07-26] MEDS ORDERED: KETOROLAC 30 MG/ML 1 ML VIAL IVP STA (22:44)
[2017-07-26] MEDS ORDERED: HYDROmorphone 1 MG/ML 1 ML SYRINGE IVP STA (22:44)
[2017-07-26] MEDS ORDERED: IPRATROPIUM-ALBUTEROL 3 ML NEB INHALATION PRN (23:00)
[2017-07-26] MEDS: SODIUM CHLORIDE 0.9% 1,000 ML IV SCH (23:28)
[2017-07-27] MEDS ORDERED: IPRATROPIUM-ALBUTEROL 3 ML NEB INHALATION SCH
[2017-07-27 00:12] VITALS: BMI 22.7
[2017-07-27] MEDS: ALPRAZolam 0.25 MG TAB PO PRN ×2 (00:20→17:31)
[2017-07-27] MEDS: methylPREDNISolone SOD SUCCI 125 MG/2 ML VIAL IV SCH ×2 (00:20→06:18)
[2017-07-27] MEDS: FUROSEMIDE 10 MG/ML 4 ML VIAL IV SCH ×3 (03:47→21:24)
[2017-07-27] MEDS: PANTOPRAZOLE 40 MG TABLET PO SCH (06:19)
[2017-07-27 06:32] LABS: Glucose,Whole Blood 258 mg/dL (75-99)
[2017-07-27] MEDS: INSULIN LISPRO (humaLOG) 300 UNIT/3 ML VIAL SQ SCH ×4 (06:50→21:24)
[2017-07-27] MEDS: IPRATROPIUM-ALBUTEROL 3 ML NEB INHALATION SCH ×4 (07:21→21:02)
[2017-07-27] MEDS: oxyCODONE-APAP 5-325MG 1 EACH TAB PO PRN ×3 (08:16→23:30)
[2017-07-27] MEDS: LEVOFLOXACIN 500 MG TAB PO SCH (08:17)
[2017-07-27] MEDS: NICOTINE 14MG/24HR PATCH TRANSDERM SCH (08:17)
[2017-07-27] MEDS: ESCITALOPRAM 10 MG TAB PO SCH (08:17)
[2017-07-27] MEDS: LACTOBACILLUS ACIDOPH & BULGAR 1 EACH PACKET PO SCH (08:17)
[2017-07-27] MEDS: DIGOXIN 125 MCG TAB PO SCH (08:17)
[2017-07-27] MEDS: LORATADINE 10 MG TAB PO SCH (08:17)
[2017-07-27] MEDS: METOPROLOL TARTRATE 50 MG TAB PO SCH ×2 (08:17→21:24)
[2017-07-27] MEDS: NITROGLYCERIN OINT 1 INCH/GM PACKET TOPICAL SCH ×4 (08:18→21:32)
[2017-07-27] MEDS ORDERED: FUROSEMIDE 40 MG TAB PO SCH (09:00)
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
[2017-07-27 11:49] LABS: Glucose,Whole Blood 92 mg/dL (75-99)
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
[2017-07-27 16:47] LABS: Glucose,Whole Blood 183 mg/dL (75-99)
[2017-07-27] MEDS: methylPREDNISolone SOD SUCCI 40 MG/ML 1 ML VIAL IV SCH ×2 (17:30→23:33)
[2017-07-27] MEDS: WARFARIN 2 MG TAB PO SCH (17:31)
[2017-07-27 20:50] LABS: Glucose,Whole Blood 145 mg/dL (75-99)
[2017-07-27] MEDS: TEMAZEPAM 30 MG CAP PO SCH (21:23)
[2017-07-27] MEDS ORDERED: ASPIRIN 325 MG TAB PO SCH (22:16)
[2017-07-27] MEDS: SODIUM CHLORIDE 0.9% 1,000 ML IV SCH (23:29)
[2017-07-28] MEDS: FUROSEMIDE 10 MG/ML 4 ML VIAL IV SCH ×3 (05:16→21:43)
[2017-07-28] MEDS: oxyCODONE-APAP 5-325MG 1 EACH TAB PO PRN ×4 (05:23→21:41)
[2017-07-28] MEDS: ALPRAZolam 0.25 MG TAB PO PRN ×2 (05:45→21:41)
[2017-07-28 06:06] LABS: Glucose,Whole Blood 156 mg/dL (75-99)
[2017-07-28 06:21] LABS: Basophils % (A) 0 %; CH 31.6; CHCM 32.4; Eosinophils % (A) 0 %; HCT 37.5 % (34.0-46.0); HDW 2.85; HGB 11.9 gm/dL (11.4-16.0); Luc # (Auto) 0.07; Luc % (Auto) 0; Lymphocytes # (A) 0.5 k/uL (1.0-4.8); Lymphocytes % (A) 3 %; MCH 31.1 pg (25.0-35.0); MCHC 31.7 g/dL (31.0-37.0); MCV 98.2 fL (80.0-100.0); Macrocytosis Slight; Mean Platelet Volume 7.8; Monocytes # (A) 0.6 k/uL (0-1.0); Monocytes % (A) 3 %; Neutrophils # (A) 17.4 k/uL (1.3-7.7); Neutrophils % (A) 93 %; RBC 3.81 m/uL (3.80-5.40); RDW 15.5 % (11.5-15.5); WBC 18.7 k/uL (3.8-10.6); WBC (Perox) 19.36
[2017-07-28 06:32] LABS: Prothrombin Time 10.6 sec (9.0-12.0)
[2017-07-28 06:42] LABS: Anion Gap 12 mmol/L; Blood Urea Nitrogen 20 mg/dL (7-17); Calcium 9.2 mg/dL (8.4-10.2); Carbon Dioxide 24 mmol/L (22-30); Chloride 103 mmol/L (98-107); Glucose 123 mg/dL (74-99); Non-African American GFR(MDRD) >60 (>60 ml/min/1.73 sqM); Sodium 139 mmol/L (137-145)
[2017-07-28] MEDS: INSULIN LISPRO (humaLOG) 300 UNIT/3 ML VIAL SQ SCH ×4 (06:47→21:39)
[2017-07-28] MEDS: PANTOPRAZOLE 40 MG TABLET PO SCH (06:47)
[2017-07-28] MEDS: IPRATROPIUM-ALBUTEROL 3 ML NEB INHALATION SCH ×4 (08:26→21:23)
[2017-07-28] MEDS: METOPROLOL TARTRATE 50 MG TAB PO SCH ×2 (09:10→21:42)
[2017-07-28] MEDS: NICOTINE 14MG/24HR PATCH TRANSDERM SCH (09:10)
[2017-07-28] MEDS: LACTOBACILLUS ACIDOPH & BULGAR 1 EACH PACKET PO SCH (09:10)
[2017-07-28] MEDS: LORATADINE 10 MG TAB PO SCH (09:10)
[2017-07-28] MEDS: NITROGLYCERIN OINT 1 INCH/GM PACKET TOPICAL SCH ×4 (09:10→21:51)
[2017-07-28] MEDS: DIGOXIN 125 MCG TAB PO SCH (09:11)
[2017-07-28] MEDS: LEVOFLOXACIN 500 MG TAB PO SCH (09:11)
[2017-07-28] MEDS: ESCITALOPRAM 10 MG TAB PO SCH (09:11)
[2017-07-28] MEDS: methylPREDNISolone SOD SUCCI 40 MG/ML 1 ML VIAL IV SCH ×3 (09:11→23:14)
--- NOTE | 2017-07-28 10:47 | P.PN ---
Subjective patient resting in bed without complaint at this time. Discussed mitral valve repair replacement. Patient states she needs dental care and needs to quit smoking. States she has plans to go to dental clinic after discharge Objective - Vital Signs Vital signs: Vital Signs Temp 97.2 F L 07/28/17 08:00 Pulse 92 07/28/17 08:38 Resp 18 07/28/17 08:00 BP 115/52 07/28/17 08:00 Pulse Ox 93 L 07/28/17 08:00 Intake & Output 07/27/17 07/28/17 07/28/17 18:59 06:59 18:59 Intake Total 720 20 200 Output Total 2800 2500 Balance -2080 -2480 200 Weight 64 kg 61.6 kg Intake: Intake, IV Titration 20 Amount Sodium Chloride 0.9% 1, 20 000 ml @ 20 mls/hr IV . Q24H [facility] Rx#:[id number] Oral 720 200 Output: Urine 2800 2500 Other: Voiding Method Bedside Commode - Constitutional General appearance: Present: mild distress - EENT Eyes: Present: PERRLA Ears: bilateral: normal - Neck Neck: Present: normal ROM - Respiratory Respiratory: bilateral: wheezing - Cardiovascular Rhythm: irregularly irregular Abnormal Heart Sounds: Present: systolic murmur - Gastrointestinal General gastrointestinal: Present: soft - Integumentary Integumentary: Present: normal - Neurologic Neurologic: Present: CNII-XII intact - Musculoskeletal Musculoskeletal: Present: generalized weakness - Psychiatric Psychiatric: Present: A&O x's 3, appropriate affect, intact judgment & insight - Labs CBC & Chem 7: 07/28/17 05:53 07/28/17 05:53 Labs: Abnormal Lab Results - Last 24 Hours (Table) 07/27/17 07/27/17 07/28/17 Range/Units 16:42 20:49 05:53 WBC 18.7 H (3.8-10.6) k/uL Neutrophils # 17.4 H (1.3-7.7) k/uL Lymphocytes # 0.5 L (1.0-4.8) k/uL BUN (7-17) mg/dL Glucose (74-99) mg/dL POC Glucose (mg/dL) 183 H 145 H (75-99) mg/dL 07/28/17 07/28/17 Range/Units 05:53 06:03 WBC (3.8-10.6) k/uL Neutrophils # (1.3-7.7) k/uL Lymphocytes # (1.0-4.8) k/uL BUN 20 H (7-17) mg/dL Glucose 123 H (74-99) mg/dL POC Glucose (mg/dL) 156 H (75-99) mg/dL - Imaging and Cardiology Chest x-ray: report reviewed CT scan - chest: report reviewed Assessment and Plan Plan: assessment Acute on chronic congestive heart failure with diastolic dysfunction Severe mitral valve regurgitation Chronic severe mitral stenosis Atrial fibrillation with RVR Acute exacerbation of severe COPD right middle lobe pneumonia History of CVA and chronic weakness and ataxia ASD closure Impression Plan Continue cardiology consultation Discussed future of valve replacement or repair mitral valve
[2017-07-28 12:00] LABS: Glucose,Whole Blood 128 mg/dL (75-99)
--- NOTE | 2017-07-28 14:29 | P.PN ---
Subjective Progress Note Date: 07/28/17 Principal diagnosis: Congestive heart failure This is a 61-year-old female who follows with Dr. Susannah Nichole in the office. She has a history of persistent atrial fibrillation, severe mitral stenosis and severe mitral regurgitation with preserved left ventricular systolic function, she's had multiple readmissions to the hospital with difficulty in breathing. Patient still has yet to follow-up with a dentist as an outpatient, but she does state that she has an appointment with one week. She diuresed well on IV Lasix. Admitted with congestive cardiac failure, diastolic in nature. She also was noted to be in atrial fibrillation with rapid ventricular response on presentation here. diuresed well through the night last night, her weight today is down 3 kg from admission. White blood cell count 18.7, hemoglobin 11.9, platelet count 166. Sodium 139, potassium 4.0, BUN 20, creatinine 0.7. Blood pressure 116/50 heart rate in the 80s. Objective - Vital Signs Vital signs: Vital Signs Temp 97.2 F L 07/28/17 08:00 Pulse 88 07/28/17 12:22 Resp 18 07/28/17 08:00 BP 115/52 07/28/17 08:00 Pulse Ox 93 L 07/28/17 08:00 Intake & Output 07/27/17 07/28/17 07/28/17 18:59 06:59 18:59 Intake Total 720 20 200 Output Total 2800 2500 850 Balance -2387 -0919 -665 Weight 64 kg 61.6 kg Intake: Intake, IV Titration 20 Amount Sodium Chloride 0.9% 1, 20 000 ml @ 20 mls/hr IV . Q24H [facility] Rx#:[id number] Oral 720 200 Output: Urine 2800 2500 850 Other: Voiding Method Bedside Commode Toilet # Voids 2 - Exam PHYSICAL EXAMINATION: HEENT: [Head is atraumatic, normocephalic. Pupils equal, round. Neck is supple. There is no elevated jugular venous pressure.] HEART EXAMINATION: Heart S1 and S2 irregularly irregular systolic murmur is heard. Mild left parasternal heave noted CHEST EXAMINATION: Lungs reveal rales to bilateral bases. ABDOMEN: [ Soft, nontender. Bowel sounds are heard. No organomegaly noted]. EXTREMITIES:[ 2+ peripheral pulses with no evidence of peripheral edema and no calf tenderness noted]. NEUROLOGIC [patient is awake, alert and oriented -3.] . - Labs CBC & Chem 7: 07/28/17 05:53 07/28/17 05:53 Labs: Abnormal Lab Results - Last 24 Hours (Table) 07/27/17 07/27/17 07/28/17 Range/Units 16:42 20:49 05:53 WBC 18.7 H (3.8-10.6) k/uL Neutrophils # 17.4 H (1.3-7.7) k/uL Lymphocytes # 0.5 L (1.0-4.8) k/uL BUN (7-17) mg/dL Glucose (74-99) mg/dL POC Glucose (mg/dL) 183 H 145 H (75-99) mg/dL 07/28/17 07/28/17 07/28/17 Range/Units 05:53 06:03 11:38 WBC (3.8-10.6) k/uL Neutrophils # (1.3-7.7) k/uL Lymphocytes # (1.0-4.8) k/uL BUN 20 H (7-17) mg/dL Glucose 123 H (74-99) mg/dL POC Glucose (mg/dL) 156 H 128 H (75-99) mg/dL Assessment and Plan Plan: Assessment and plan #1 diastolic congestive heart failure acute on chronic #2 severe mitral regurg and mitral stenosis. #3 persistent atrial fibrillation #4 htn #5 COPD Plan We will continue current dose of IV Lasix. We will also repeat the chest x-ray in the morning. DNP note has been reviewed, I agree with a documented findings and plan of care. Patient was seen and examined.
--- NOTE | 2017-07-28 14:55 | XR ---
EXAMINATION TYPE: XR chest 2V DATE OF EXAM: 07/28/2017 COMPARISON: Prior chest x-ray and CT 07/26/2017 HISTORY: Congestive heart failure, chest pain and shortness of breath TECHNIQUE: Frontal and lateral views of the chest are obtained. FINDINGS: The heart remains enlarged. There is improvement in aeration as compared to previous exam. Bandlike area of increased density the right lung base may reflect atelectasis. Patient is rotated. No evident pneumothorax or sizable effusion. There are overlying cardiac leads. Atrial septal defect repair device present over the heart is on prior exam. Hyperinflation compatible with underlying COPD . IMPRESSION: Improvement in patient's volume status.
[2017-07-28 17:06] LABS: Glucose,Whole Blood 161 mg/dL (75-99)
[2017-07-28] MEDS: WARFARIN 2 MG TAB PO SCH (17:28)
[2017-07-28 20:48] LABS: Glucose,Whole Blood 130 mg/dL (75-99)
[2017-07-28] MEDS: TEMAZEPAM 30 MG CAP PO SCH (21:41)
[2017-07-28] MEDS: SODIUM CHLORIDE 0.9% 1,000 ML IV SCH (23:03)
[2017-07-29] MEDS: oxyCODONE-APAP 5-325MG 1 EACH TAB PO PRN ×2 (01:48→06:50)
[2017-07-29] MEDS: FUROSEMIDE 10 MG/ML 4 ML VIAL IV SCH (04:31)
[2017-07-29 06:04] LABS: Glucose,Whole Blood 180 mg/dL (75-99)
[2017-07-29] MEDS: PANTOPRAZOLE 40 MG TABLET PO SCH (06:09)
[2017-07-29] MEDS: INSULIN LISPRO (humaLOG) 300 UNIT/3 ML VIAL SQ SCH ×2 (06:10→12:05)
[2017-07-29 06:26] LABS: Anisocytosis Slight; Basophils % (A) 0 %; CH 30.8; CHCM 32.4; Eosinophils % (A) 0 %; HCT 35.8 % (34.0-46.0); HDW 2.79; Luc # (Auto) 0.06; Luc % (Auto) 1; Lymphocytes # (A) 0.4 k/uL (1.0-4.8); Lymphocytes % (A) 3 %; MCH 32.1 pg (25.0-35.0); MCHC 33.5 g/dL (31.0-37.0); MCV 95.8 fL (80.0-100.0); Mean Platelet Volume 8.4; Monocytes # (A) 0.4 k/uL (0-1.0); Monocytes % (A) 3 %; Neutrophils # (A) 11.7 k/uL (1.3-7.7); Neutrophils % (A) 93 %; RBC 3.74 m/uL (3.80-5.40); RDW 16.5 % (11.5-15.5); WBC 12.5 k/uL (3.8-10.6); WBC (Perox) 13.51
[2017-07-29 06:35] LABS: Anion Gap 11 mmol/L; Blood Urea Nitrogen 24 mg/dL (7-17); Carbon Dioxide 30 mmol/L (22-30); Chloride 99 mmol/L (98-107); Glucose 149 mg/dL (74-99); Non-African American GFR(MDRD) >60 (>60 ml/min/1.73 sqM); Potassium 3.5 mmol/L (3.5-5.1); Sodium 140 mmol/L (137-145)
[2017-07-29 06:36] LABS: INR 1.2 (<1.2); Prothrombin Time 12.1 sec (9.0-12.0)
[2017-07-29] MEDS: IPRATROPIUM-ALBUTEROL 3 ML NEB INHALATION SCH ×2 (08:06→11:25)
[2017-07-29] MEDS: NITROGLYCERIN OINT 1 INCH/GM PACKET TOPICAL SCH ×3 (08:24→12:05)
[2017-07-29] MEDS: methylPREDNISolone SOD SUCCI 40 MG/ML 1 ML VIAL IV SCH (08:24)
[2017-07-29] MEDS: ESCITALOPRAM 10 MG TAB PO SCH (08:25)
[2017-07-29] MEDS: LEVOFLOXACIN 500 MG TAB PO SCH (08:25)
[2017-07-29] MEDS: NICOTINE 14MG/24HR PATCH TRANSDERM SCH (08:25)
[2017-07-29] MEDS: METOPROLOL TARTRATE 50 MG TAB PO SCH (08:25)
[2017-07-29] MEDS: LACTOBACILLUS ACIDOPH & BULGAR 1 EACH PACKET PO SCH (08:25)
[2017-07-29] MEDS: LORATADINE 10 MG TAB PO SCH (08:25)
[2017-07-29] MEDS: DIGOXIN 125 MCG TAB PO SCH (08:25)
[2017-07-29 08:33] VITALS: RESP 18
--- NOTE | 2017-07-29 10:29 | P.PN ---
Subjective Principal diagnosis: Resting in bed sitting up. Complaining of epigastric pain that radiates to the neck note nurse notified EKG ordered. Reinforced the need for getting dental work done and cessation of smoking so that she can have the valve replacement and repair Objective - Vital Signs Vital signs: Vital Signs Temp 97.4 F L 07/29/17 10:07 Pulse 82 07/29/17 10:07 Resp 18 07/29/17 10:07 BP 118/71 07/29/17 10:07 Pulse Ox 97 07/29/17 10:07 Intake & Output 07/28/17 07/29/17 07/29/17 18:59 06:59 18:59 Intake Total 450 240 Output Total 850 1800 Balance -400 -1800 240 Weight 60.7 kg Intake: Oral 450 240 Output: Urine 850 1800 Other: Voiding Method Toilet Toilet Toilet Bedside Commode Bedside Commode # Voids 2 - Constitutional General appearance: Present: mild distress - EENT Eyes: Present: PERRLA Ears: bilateral: normal - Neck Neck: Present: normal ROM - Respiratory Respiratory: bilateral: CTA - Cardiovascular Rhythm: irregularly irregular Abnormal Heart Sounds: Present: systolic murmur - Gastrointestinal General gastrointestinal: Present: soft - Integumentary Integumentary: Present: normal - Neurologic Neurologic: Present: CNII-XII intact - Musculoskeletal Musculoskeletal: Present: generalized weakness - Psychiatric Psychiatric: Present: A&O x's 3, appropriate affect, intact judgment & insight - Labs CBC & Chem 7: 07/29/17 05:40 07/29/17 05:40 Labs: Abnormal Lab Results - Last 24 Hours (Table) 07/28/17 07/28/17 07/28/17 Range/Units 11:38 16:37 20:46 WBC (3.8-10.6) k/uL RBC (3.80-5.40) m/uL RDW (11.5-15.5) % Neutrophils # (1.3-7.7) k/uL Lymphocytes # (1.0-4.8) k/uL PT (9.0-12.0) sec INR (<1.2) BUN (7-17) mg/dL Glucose (74-99) mg/dL POC Glucose (mg/dL) 128 H 161 H 130 H (75-99) mg/dL 07/29/17 07/29/17 07/29/17 Range/Units 05:40 05:40 05:40 WBC 12.5 H (3.8-10.6) k/uL RBC 3.74 L (3.80-5.40) m/uL RDW 16.5 H (11.5-15.5) % Neutrophils # 11.7 H (1.3-7.7) k/uL Lymphocytes # 0.4 L (1.0-4.8) k/uL PT 12.1 H (9.0-12.0) sec INR 1.2 H (<1.2) BUN 24 H (7-17) mg/dL Glucose 149 H (74-99) mg/dL POC Glucose (mg/dL) (75-99) mg/dL 07/29/17 Range/Units 06:03 WBC (3.8-10.6) k/uL RBC (3.80-5.40) m/uL RDW (11.5-15.5) % Neutrophils # (1.3-7.7) k/uL Lymphocytes # (1.0-4.8) k/uL PT (9.0-12.0) sec INR (<1.2) BUN (7-17) mg/dL Glucose (74-99) mg/dL POC Glucose (mg/dL) 180 H (75-99) mg/dL - Imaging and Cardiology Chest x-ray: report reviewed Assessment and Plan Plan: Assessment Acute on chronic congestive heart failure with diastolic dysfunction Atrial fibrillation with RVR Acute exacerbation is to severe COPD Right middle lobe pneumonia History of CVA with chronic weakness and ataxia Chronic mitral stenosis mitral regurgitation severe Nicotine use Depression Plan Continued consultation with cardiology Patient has plan to get dental work done and smoking sensation Needs mitral valve repair or replacement
[2017-07-29 11:41] VITALS: BP 112/70; PULSE 90; TEMP 97
[2017-07-29 11:41] LABS: Glucose,Whole Blood 179 mg/dL (75-99)
--- NOTE | 2017-07-29 12:45 | P.PN ---
Subjective Progress Note Date: 07/29/17 Principal diagnosis: Congestive heart failure This is a 61-year-old female who follows with Dr. Susannah Nichole in the office. She has a history of persistent atrial fibrillation, severe mitral stenosis and severe mitral regurgitation with preserved left ventricular systolic function, she's had multiple readmissions to the hospital with difficulty in breathing. Patient still has yet to follow-up with a dentist as an outpatient, but she does state that she has an appointment with one week. She diuresed well on IV Lasix. Admitted with congestive cardiac failure, diastolic in nature. She also was noted to be in atrial fibrillation with rapid ventricular response on presentation here. Patient diuresed well through the night last night, her weight today is down 3 kg from admission. White blood cell count 18.7, hemoglobin 11.9, platelet count 166. Sodium 139, potassium 4.0, BUN 20, creatinine 0.7. Blood pressure 116/50 heart rate in the 80s. 07/29/2017 Patient seen and examined this morning, feeling much better overall. Breathing is stable. Pressure 118/70, heart rate in the 80s. Weight is down 1 kg today. WBC 12.5, hemoglobin 12.0, platelet count 189, potassium 3.5, BUN 24, creatinine 0.9. We will discontinue the IV Lasix today and start the patient on oral diuretics. Cardiology's perspective she should be able to be discharged home today to follow-up post discharge. She's also been instructed to keep her dental appointment. Objective - Vital Signs Vital signs: Vital Signs Temp 97 F L 07/29/17 11:41 Pulse 90 07/29/17 11:41 Resp 18 07/29/17 11:41 BP 112/70 07/29/17 11:41 Pulse Ox 96 07/29/17 11:41 Intake & Output 07/28/17 07/29/17 07/29/17 18:59 06:59 18:59 Intake Total 450 240 Output Total 850 1800 Balance -400 -1800 240 Weight 60.7 kg Intake: Oral 450 240 Output: Urine 850 1800 Other: Voiding Method Toilet Toilet Toilet Bedside Commode Bedside Commode # Voids 2 - Exam PHYSICAL EXAMINATION: HEENT: [Head is atraumatic, normocephalic. Pupils equal, round. Neck is supple. There is no elevated jugular venous pressure.] HEART EXAMINATION: Heart S1 and S2 irregularly irregular systolic murmur is heard. Mild left parasternal heave noted CHEST EXAMINATION: Lungs reveal rales to bilateral bases. ABDOMEN: [ Soft, nontender. Bowel sounds are heard. No organomegaly noted]. EXTREMITIES:[ 2+ peripheral pulses with no evidence of peripheral edema and no calf tenderness noted]. NEUROLOGIC [patient is awake, alert and oriented -3.] . - Labs CBC & Chem 7: 07/29/17 05:40 07/29/17 05:40 Labs: Abnormal Lab Results - Last 24 Hours (Table) 07/28/17 07/28/17 07/29/17 Range/Units 16:37 20:46 05:40 WBC 12.5 H (3.8-10.6) k/uL RBC 3.74 L (3.80-5.40) m/uL RDW 16.5 H (11.5-15.5) % Neutrophils # 11.7 H (1.3-7.7) k/uL Lymphocytes # 0.4 L (1.0-4.8) k/uL PT (9.0-12.0) sec INR (<1.2) BUN (7-17) mg/dL Glucose (74-99) mg/dL POC Glucose (mg/dL) 161 H 130 H (75-99) mg/dL 07/29/17 07/29/17 07/29/17 Range/Units 05:40 05:40 06:03 WBC (3.8-10.6) k/uL RBC (3.80-5.40) m/uL RDW (11.5-15.5) % Neutrophils # (1.3-7.7) k/uL Lymphocytes # (1.0-4.8) k/uL PT 12.1 H (9.0-12.0) sec INR 1.2 H (<1.2) BUN 24 H (7-17) mg/dL Glucose 149 H (74-99) mg/dL POC Glucose (mg/dL) 180 H (75-99) mg/dL 07/29/17 Range/Units 11:27 WBC (3.8-10.6) k/uL RBC (3.80-5.40) m/uL RDW (11.5-15.5) % Neutrophils # (1.3-7.7) k/uL Lymphocytes # (1.0-4.8) k/uL PT (9.0-12.0) sec INR (<1.2) BUN (7-17) mg/dL Glucose (74-99) mg/dL POC Glucose (mg/dL) 179 H (75-99) mg/dL Assessment and Plan Plan: Assessment and plan #1 diastolic congestive heart failure acute on chronic #2 severe mitral regurg and mitral stenosis. #3 persistent atrial fibrillation #4 htn #5 COPD Plan We'll discontinue the IV Lasix and start the patient on oral diuretics today. Follow-up appointment will be made with Dr. Susannah Nichole in the office post discharge. Patient has been advised to keep her outpatient scheduled dental appointment. DNP note has been reviewed, I agree with a documented findings and plan of care. Patient was seen and examined.
--- NOTE | 2017-07-29 13:06 | P.DS ---
Providers Date of admission: 07/26/17 22:15 Expected date of discharge: 07/29/17 Attending physician: Raphael Egan Consults: 07/26/17 22:15 Consult Physician Routine Consulting Provider: [place] Shankar Consult Reason/Comments: Rapid atrial fibrillation and CHF Do you want consulting provider notified?: Yes Primary care physician: Raphael Egan Hospital Course: 61-year-old female presented to the emergency room with complaints of increasing shortness of breath and chest discomfort patient was evaluated by cardiology patient was stabilized and ready for discharge. Assessment acute and chronic congestive heart failure diastolic dysfunction atrial fit with RVR acute exacerbations severe COPD history of the CVA chronic weakness ataxia pneumonia excluded severe mitral valve regurgitation and stenosis depression Plan stable for discharge follow up with cardiology family physician was encouraged to have dental visit stop smoking plan for mitral valve replacement or repair Patient Condition at Discharge: Stable Plan - Discharge Summary Discharge Rx Participant: Yes New Discharge Prescriptions: New Furosemide [Lasix] 40 mg PO BID@0900,1600 tab INSULIN LISPRO (humaLOG) [humaLOG (formulary)] 0 unit SQ ACHS vial Continue Warfarin [Coumadin] 2 mg PO HS Temazepam [Restoril] 30 mg PO HS Loratadine [Claritin] 10 mg PO DAILY Digoxin [Lanoxin] 125 mcg PO DAILY ALPRAZolam [Xanax] 0.25 mg PO TID PRN #20 tab PRN Reason: Anxiety Ipratropium-Albuterol Nebulize [Duoneb 0.5 mg-3 mg/3 ml Soln] 3 ml INHALATION RT-QID #120 neb Nicotine 14Mg/24Hr Patch [Habitrol] 1 patch TRANSDERM DAILY #30 patch Pantoprazole [Protonix] 40 mg PO AC-BRKFST #30 tab Sennosides [Senokot] 8.6 mg PO BID PRN #60 tab PRN Reason: Constipation Escitalopram [Lexapro] 10 mg PO DAILY #30 L.acidoph,Paracasei, B.lactis [Probiotic] 1 cap PO DAILY Metoprolol Tartrate [Lopressor] 50 mg PO BID #60 tab traMADol HCl [Ultram] 50 mg PO Q6H PRN #20 tab PRN Reason: Moderate Pain Calcium Carbonate [Tums] 500 mg PO TID PRN chew PRN Reason: Heartburn Budesonide-Formot 160-4.5 Mcg [Symbicort 160-4.5 Mcg Inhaler] 2 puff INHALATION RT-BID #1 inh oxyCODONE-APAP 5-325MG [Percocet 5-325 mg] 1 tab PO Q6HR PRN PRN Reason: Pain Scale 1 To 5 Discontinued Furosemide [Lasix] 40 mg PO DAILY #0 Levofloxacin [Levaquin] 500 mg PO DAILY #5 tab guaiFENesin SYRUP 100MG/5ML [Robitussin] 200 mg PO Q6H PRN cup PRN Reason: Cough methylPREDNISolone [Medrol Dose Pack] See Taper PO DIRECTED Discharge Medication List Digoxin [Lanoxin] 125 mcg PO DAILY 05/22/17 [History] Loratadine [Claritin] 10 mg PO DAILY 05/22/17 [History] Temazepam [Restoril] 30 mg PO HS 05/22/17 [History] Warfarin [Coumadin] 2 mg PO HS 05/22/17 [History] ALPRAZolam [Xanax] 0.25 mg PO TID PRN #20 tab 05/29/17 [Rx] Escitalopram [Lexapro] 10 mg PO DAILY #30 05/29/17 [Rx] Ipratropium-Albuterol Nebulize [Duoneb 0.5 mg-3 mg/3 ml Soln] 3 ml INHALATION RT -QID #120 neb 05/29/17 [Rx] Nicotine 14Mg/24Hr Patch [Habitrol] 1 patch TRANSDERM DAILY #30 patch 05/29/17 [ Rx] Pantoprazole [Protonix] 40 mg PO AC-BRKFST #30 tab 05/29/17 [Rx] Sennosides [Senokot] 8.6 mg PO BID PRN #60 tab 05/29/17 [Rx] L.acidoph,Paracasei, B.lactis [Probiotic] 1 cap PO DAILY 07/04/17 [History] Metoprolol Tartrate [Lopressor] 50 mg PO BID #60 tab 07/10/17 [Rx] Budesonide-Formot 160-4.5 Mcg [Symbicort 160-4.5 Mcg Inhaler] 2 puff INHALATION RT-BID #1 inh 07/16/17 [Rx] Calcium Carbonate [Tums] 500 mg PO TID PRN chew 07/16/17 [Rx] traMADol HCl [Ultram] 50 mg PO Q6H PRN #20 tab 07/16/17 [Rx] oxyCODONE-APAP 5-325MG [Percocet 5-325 mg] 1 tab PO Q6HR PRN 07/27/17 [History] Furosemide [Lasix] 40 mg PO BID@0900,1600 tab 07/29/17 [Rx] INSULIN LISPRO (humaLOG) [humaLOG (formulary)] 0 unit SQ ACHS vial 07/29/17 [Rx ] Follow up Appointment(s)/Referral(s): Raphael Egan MD [Primary Care Provider] - 1-2 days Margarita Nichole MD [STAFF PHYSICIAN] - 1 Week [facility], [NON-STAFF] -
[2017-07-29] MEDS ORDERED: FUROSEMIDE 40 MG TAB PO SCH (16:00)
== END 2017-07-29 14:30 | disposition home or self-care (01) | DRG 291 ==
LOC: EC 18:30 → 6SEL 22:15
PROVIDERS: ADMIT Family Medicine; ATTEND Family Medicine
DX: I11.0 Hypertensive heart disease with heart failure (principal); J96.21 Acute and chronic respiratory failure with hypoxia; I48.1 Persistent atrial fibrillation; J44.1 Chronic obstructive pulmonary disease with (acute) exacerbation; I50.33 Acute on chronic diastolic (congestive) heart failure; I48.2 Chronic atrial fibrillation; I34.0 Nonrheumatic mitral (valve) insufficiency; R00.0 Tachycardia, unspecified; F17.200 Nicotine dependence, unspecified, uncomplicated; F32.9 Major depressive disorder, single episode, unspecified; I25.10 Atherosclerotic heart disease of native coronary artery without angina pectoris; Z79.51 Long term (current) use of inhaled steroids; Z79.899 Other long term (current) drug therapy; I69.959 Hemiplegia and hemiparesis following unspecified cerebrovascular disease affecting unspecified side; Z79.01 Long term (current) use of anticoagulants; Z82.49 Family history of ischemic heart disease and other diseases of the circulatory system; I69.993 Ataxia following unspecified cerebrovascular disease; Z88.1 Allergy status to other antibiotic agents; Z88.2 Allergy status to sulfonamides; Z81.8 Family history of other mental and behavioral disorders; Z71.6 Tobacco abuse counseling; Z90.49 Acquired absence of other specified parts of digestive tract
CPT/HCPCS: 36415; 71010; 71020; 71275; 80048; 80053; 80162; 82550; 82553; 83036; 83735; 83880; 84484; 85025; 85379; 85610; 85730; 93005; 94640; 94644; 94760; 96361; 96365; 96375; 99291

== ENCOUNTER 2017-09-27 06:00 | Inpatient (IN) | payer MEDICARE ==
[2017-09-27] MEDS ORDERED: ALBUTEROL NEBULIZED 2.5 MG/3 ML INHALATION STA (06:20)
[2017-09-27] MEDS ORDERED: AZITHROMYCIN 500 MG in SODIUM CHLORIDE 0.9% 250 ML IVPB STA (06:20)
[2017-09-27] MEDS ORDERED: methylPREDNISolone SOD SUCCI 125 MG/2 ML VIAL IV STA (06:20)
[2017-09-27] MEDS ORDERED: IPRATROPIUM 0.5 MG/2.5 ML NEBU INHALATION STA (06:20)
[2017-09-27] MEDS ORDERED: MORPHINE SULFATE 5 MG/ML SYRINGE IVP STA (06:28)
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
[2017-09-27 06:49] LABS: Basophils # (A) 0.1 k/uL (0-0.2); Basophils % (A) 2 %; Eosinophils # (A) 0.1 k/uL (0-0.7); Eosinophils % (A) 1 %; HCT 47.9 % (34.0-46.0); HGB 14.7 gm/dL (11.4-16.0); Hypochromasia Slight; Lymphocytes # (A) 0.9 k/uL (1.0-4.8); Lymphocytes % (A) 10 %; MCH 28.7 pg (25.0-35.0); MCHC 30.6 g/dL (31.0-37.0); Monocytes # (A) 0.8 k/uL (0-1.0); Monocytes % (A) 10 %; Neutrophils # (A) 6.4 k/uL (1.3-7.7); Neutrophils % (A) 73 %; Platelet Count 313 k/uL (150-450); RBC 5.11 m/uL (3.80-5.40); RDW 15.8 % (11.5-15.5); WBC 8.7 k/uL (3.8-10.6)
[2017-09-27] MEDS ORDERED: DILTIAZEM 5 MG/ML 5 ML VIAL IVP STA (06:49)
[2017-09-27 06:54] LABS: MCV 93.8 fL (80.0-100.0)
--- NOTE | 2017-09-27 07:06 | XR ---
EXAMINATION TYPE: XR chest 1V portable DATE OF EXAM: 09/27/2017 HISTORY: sob. REFERENCE: Previous study dated 09/18/2017. FINDINGS: Lung volumes are prominent. The heart is enlarged. The lungs appear clear. Pleural spaces a re clear. IMPRESSION: 1. COPD. 2. MILD CARDIOMEGALY.
[2017-09-27 07:10] LABS: ALT 34 U/L (9-52); AST 31 U/L (14-36); Albumin 4.3 g/dL (3.5-5.0); Alkaline Phosphatase 137 U/L (38-126); Anion Gap 10 mmol/L; Blood Urea Nitrogen 17 mg/dL (7-17); Calcium 9.9 mg/dL (8.4-10.2); Carbon Dioxide 26 mmol/L (22-30); Chloride 103 mmol/L (98-107); Glucose 112 mg/dL (74-99); INR 1.6 (<1.2); Magnesium 1.7 mg/dL (1.6-2.3); Partial Thromboplastin Time 25.6 sec (22.0-30.0); Potassium 3.9 mmol/L (3.5-5.1); Prothrombin Time 14.7 sec (9.0-12.0); Sodium 139 mmol/L (137-145); Total Bilirubin 1.1 mg/dL (0.2-1.3); Total Protein 7.3 g/dL (6.3-8.2)
[2017-09-27] MEDS ORDERED: SODIUM CHLORIDE 0.9% 1,000 ML IV SCH (07:30)
[2017-09-27 07:35] LABS: Creatine Kinase MB 0.4 ng/mL (0.0-2.4); Troponin I 0.024 ng/mL (0.000-0.034)
[2017-09-27] MEDS: NICOTINE 21MG/24HR PATCH TRANSDERM SCH (10:16)
[2017-09-27] MEDS: IPRATROPIUM-ALBUTEROL 3 ML NEB INHALATION SCH ×3 (11:16→19:13)
[2017-09-27] MEDS ORDERED: ALPRAZolam 0.25 MG TAB PO PRN (11:16)
[2017-09-27 12:02] LABS: Glucose,Whole Blood 245 mg/dL (75-99)
[2017-09-27] MEDS: cefTRIAXone IN SWFI 1,000 MG/10 ML SYRINGE IVP SCH (13:42)
[2017-09-27] MEDS: DIGOXIN 125 MCG TAB PO SCH (13:42)
[2017-09-27] MEDS: AMIODARONE 200 MG TAB PO SCH ×2 (13:42→20:45)
[2017-09-27] MEDS: INSULIN ASPART 100 UNIT/ML 1 ML 10 ML VIAL SQ SCH ×3 (13:50→22:11)
[2017-09-27] MEDS: guaiFENesin SYRUP 100MG/5ML 200 MG/10 ML CUP PO PRN ×2 (14:58→22:23)
[2017-09-27] MEDS: methylPREDNISolone SOD SUCCI 125 MG/2 ML VIAL IV SCH ×3 (14:58→23:53)
--- NOTE | 2017-09-27 15:16 | P.CNPUL ---
History of Present Illness Consult date: 09/27/17 Reason for consult: dyspnea History of present illness: 61-year-old female patient who is well-known to us. The patient is known to have COPD, mitral stenosis, chronic atrial fibrillation, severe pulmonary hypertension, was coming into the hospital because of worsening shortness of breath. The patient was being Complaint for valvular surgery and mitral valve replacement however based on her COPD and her comorbidities and her poor dental condition the surgery got delayed at this point. The patient has had multiple hospitalization for CHF, A. fib and complications of heart failure and COPD exacerbation. She came into the ED last night because of increased shortness of breath and she was mainly bronchospastic and wheezy during this current hospitalization. The BNP was mildly elevated. The patient's INR was subtherapeutic at 1.6. The chest x-ray was stable with COPD and mild cardiomegaly. The patient apparently had seen Dr. Hare and she was told that her teeth condition has been adequate at this point for any form of cardiac or valve surgery. Review of Systems Constitutional: Reports fatigue, Reports poor appetite Eyes: denies blurred vision, denies bulging eye, denies decreased vision Ears: deny: decreased hearing, ear discharge, earache Ears, nose, mouth and throat: Denies headache, Denies sore throat Cardiovascular: Reports decreased exercise tolerance, Reports dyspnea on exertion, Reports palpitations, Reports rapid heart beat, Reports shortness of breath Respiratory: Reports cough, Reports dyspnea, Reports wheezing Gastrointestinal: Denies abdominal pain, Denies diarrhea, Denies nausea, Denies vomiting Genitourinary: Denies dysuria, Denies hematuria Musculoskeletal: Denies myalgias Musculoskeletal: absent: ankle pain, ankle stiffness, ankle swelling Integumentary: Denies pruritus, Denies rash Neurological: Denies numbness, Denies weakness Psychiatric: Denies anxiety, Denies depression Endocrine: Denies fatigue, Denies weight change Past Medical History Past Medical History: Atrial Fibrillation, Coronary Artery Disease (CAD), Heart Failure, COPD, CVA/TIA, Hypertension, Osteoarthritis (OA), Pneumonia Additional Past Medical History / Comment(s): Chronic atrial fibrillation, COPD , mitral stenosis, chronic low back pain, DDD, CVA/multiple TIAs and issues with weakness and shuffling of bilateral feet due to previous stroke, mitral valve heart disease-valve stenosis/regurg previous valvuloplasty (2012), ASD closure, pneumonias, R ankle fracture x 2 with chronic edema. History of Any Multi-Drug Resistant Organisms: None Reported Past Surgical History: Cholecystectomy, Heart Catheterization, Orthopedic Surgery, Tonsillectomy Additional Past Surgical History / Comment(s): 06/2017 cardiac cath, 2013 mitral valvuloplasty/ASD closure, R ankle surgery with pins, bilateral carpal tunnel sx, D&C for miscarriage, colonoscopy. Past Anesthesia/Blood Transfusion Reactions: No Reported Reaction Past Psychological History: Depression Additional Psychological History / Comment(s): Pt resides with her spouse. She uses a cane or walker to ambulate. She drives. She has a nebulizer. She receives home care thru [facility]. Depression since 2013 due to her son overdosing on her pain medication. Smoking Status: Current every day smoker Past Alcohol Use History: None Reported Additional Past Alcohol Use History / Comment(s): Pt started smoking in 1971 and is less than a ppd smoker. Past Drug Use History: None Reported - Past Family History Mother Family Medical History: Blood Disorder, Dementia Additional Family Medical History / Comment(s): at age 84 from dementia and blood infection Father Family Medical History: Congestive Heart Failure (CHF), Myocardial Infarction ( MS) Additional Family Medical History / Comment(s): heart failure, from heart attack at 74 in 1999 Sister(s) Family Medical History: No Reported History Additional Family Medical History / Comment(s): from car accident Medications and Allergies Home Medications Medication Instructions Recorded Confirmed Type Digoxin [Lanoxin] 125 mcg PO DAILY 05/22/17 09/27/17 History Loratadine [Claritin] 10 mg PO DAILY 05/22/17 09/27/17 History Pantoprazole [Protonix] 40 mg PO AC-BRKFST #30 tab 05/29/17 09/27/17 Rx Budesonide-Formot 160-4.5 Mcg 2 puff INHALATION RT-BID #1 inh 07/16/17 09/27/17 Rx [Symbicort 160-4.5 Mcg Inhaler] Albuterol Inhaler [Ventolin Hfa 1 - 2 puff INHALATION RT-QID PRN 09/01/17 History Inhaler] Furosemide [Lasix] 40 mg PO DAILY 09/01/17 09/27/17 History Oxycontin Er 5mg 5 mg PO DAILY 09/01/17 09/27/17 History clonazePAM [Klonopin ODT Wafer] 0.25 mg PO TID PRN 09/01/17 09/27/17 History ALPRAZolam [Xanax] 0.25 mg PO TID PRN #15 tab 09/06/17 09/27/17 Rx Amiodarone [Cordarone] 200 mg PO BID #60 tab 09/06/17 09/27/17 Rx Cefuroxime Axetil [Ceftin] 500 mg PO BID #8 tab 09/06/17 09/27/17 Rx Escitalopram [Lexapro] 10 mg PO HS #30 09/06/17 09/27/17 Rx Ipratropium-Albuterol Nebulize 3 ml INHALATION RT-QID #120 09/06/17 09/27/17 Rx [Duoneb 0.5 mg-3 mg/3 ml Soln] ampul.neb Metoprolol Tartrate [Lopressor] 25 mg PO DAILY #30 tab 09/06/17 09/27/17 Rx Temazepam [Restoril] 15 mg PO HS #1 09/06/17 09/27/17 Rx Warfarin [Coumadin] 1 mg PO HS #30 09/06/17 09/27/17 Rx oxyCODONE-APAP 5-325MG [Percocet 1 tab PO Q6HR PRN 09/27/17 09/27/17 History 5-325 mg] Allergies Allergy/AdvReac Type Severity Reaction Status Date / Time ciprofloxacin [From Cipro] Allergy Rash/Hives Verified 09/27/17 08:48 Sulfa (Sulfonamide Allergy Rash/Hives Verified 09/27/17 08:48 Antibiotics) tramadol [From Ultram] AdvReac Rash/Hives Verified 09/27/17 08:48 Physical Exam Vitals: Vital Signs Temp Pulse Pulse Resp BP BP Pulse Ox 09/27/17 11:28 76 09/27/17 11:19 68 92 L 09/27/17 11:16 98.9 F 107 H 18 108/63 91 L 09/27/17 09:36 99 F 99 20 126/80 90 L 09/27/17 09:18 99 20 126/80 90 L 09/27/17 07:50 64 09/27/17 07:35 62 01/07/18 07:32 94 18 111/67 95 09/27/17 07:20 64 09/27/17 07:05 66 09/27/17 06:50 64 09/27/17 06:09 99 F 97 22 113/81 92 L Intake and Output 09/27/17 09/27/17 09/27/17 06:59 14:59 22:59 Other: # Voids 1 Weight 58.967 kg 58.96 kg Patient Weight 09/28/17 06:59 Weight 58.96 kg GENERAL EXAM: Alert, active, comfortable in no apparent distress. HEAD: Normocephalic. EYES: Normal reaction of pupils, equal size. NOSE: Clear with pink turbinates. THROAT: No erythema or exudates. NECK: No masses, no JVD. CHEST: No chest wall deformity. LUNGS: Equal air entry with crackles in the posterior bases. Diminished.. There are diffuse expiratory wheezes throughout the lung cuadra bilaterally. CVS: Irregular S1 and S2 normal with an audible murmur, and a diastolic rumble and the patient's cardiac rhythm is irregular secondary his atrial fibrillation. ABDOMEN: No hepatosplenomegaly, normal bowel sounds, no guarding or rigidity. SPINE: No scoliosis or deformity SKIN: No rashes CENTRAL NERVOUS SYSTEM: No focal deficits, tone is normal in all 4 extremities. EXTREMITIES: There is trace peripheral edema. No clubbing, no cyanosis. Peripheral pulses are intact. Results - Laboratory Findings CBC and BMP: 09/27/17 06:32 09/27/17 06:32 PT/INR, D-dimer PT 14.7 sec (9.0-12.0) H 09/27/17 06:32 INR 1.6 (<1.2) H 09/27/17 06:32 Abnormal lab findings: Abnormal Labs 09/27/17 09/27/17 09/27/17 06:32 06:32 06:32 Hct 47.9 H MCHC 30.6 L RDW 15.8 H Lymphocytes # 0.9 L PT 14.7 H INR 1.6 H Glucose 112 H POC Glucose (mg/dL) Alkaline Phosphatase 137 H 09/27/17 12:00 Hct MCHC RDW Lymphocytes # PT INR Glucose POC Glucose (mg/dL) 245 H Alkaline Phosphatase - Diagnostic Findings Chest x-ray: image reviewed Assessment and Plan Plan: Assessment 1 acute COPD exacerbation with secondary shortness of breath. The patient has chronic dyspnea and her shortness of breath is multifactorial knowing that she has also severe mitral stenosis, severe pulmonary hypertension and diastolic heart failure in addition to her COPD. Nevertheless, the acute exacerbating factor for now as the COPD exacerbation. CHF seems to be currently inactive and stable. 2 CHF with diastolic dysfunction 3 severe mitral stenosis with previous valvuloplasty. The patient was being contemplated for mitral valve replacement. She has severe pulmonary hypertension with a PA pressure estimated to be in the mid 70s. 4 chronic atrial fibrillation, rate is controlled and the patient is anticoagulated with a subtherapeutic PT/INR 5 chronic smoker and the patient claims that she hasn't smoked for the past 2 weeks 6 CVA/TIA, history of 7 severe pulmonary hypertension with a right ventricular systolic pressure of 71.9 mmHg 8 poor dental condition and the patient has been given clearance by dental surgery 9 hypertension 10 history of ASD closure Plan Proceed the acute COPD exacerbation. Put the patient on DuoNeb nebulized treatment and IV Solu-Medrol. Empiric antibiotic coverage. Management of chronic exacerbation and CHF. Reconsult cardiology early consult cardiothoracic surgery in regards to further input regarding this patient mitral valve disease and surgery. I'm convinced that this patient carries an increased risk based on her comorbidities. However it's reasonable to be reevaluated by cardiothoracic surgery at this point. We'll continue to follow.
[2017-09-27] MEDS ORDERED: METOPROLOL SUCCINATE (ER) 25 MG TAB.ER.24H PO STA (15:52)
--- NOTE | 2017-09-27 16:30 | HP ---
HISTORY AND PHYSICAL I am covering for Dr. Egan. DATE OF SERVICE: 09/27/2017 CHIEF COMPLAINT: Shortness of breath. HISTORY OF PRESENT ILLNESS: This 61-year-old woman with a past medical history of severe mitral stenosis, CHF, and respiratory problems with multiple admissions recently. The patient had significant history of noncompliance also. Apparently the cardiothoracic surgery would like to have dental clearance before the surgery for severe mitral stenosis, but apparently patient has not compliant of late. I discussed with daughter during the past admission and of late there is a dental consultation on of this month. Currently the patient is complaining of shortness of breath and cough and congestion. The patient is significantly short of breath. After a period of improvement the patient came to the ER and was admitted for further evaluation and treatment. The chest x-ray on admission showed evidence of significant mitral stenosis, very prominent pulmonary window and as well as COPD and mild cardiomegaly also. There is no history of fevers, rigors. No history of headache, loss of consciousness, seizures at this time. Mostly COPD acute exacerbation has been suspected at this time. PAST MEDICAL HISTORY: History atrial fibrillation, CHF, COPD, history of CVA, TIA, hypertension, history of DJD, history of pneumonia, cholecystectomy, cardiac catheterization, history of depression. MEDICATIONS: Prior to admission include home medications are: 1. Oxycodone 5 mg q.6h p.r.n. 2. Klonopin 0.5 mg t.i.d. p.r.n. 3. Coumadin 1 mg p.o. q.h.s. 4. Restoril 15 mg q.h.s. 5. Protonix 40 mg at breakfast. 6. Oxycodone 5 mg p.o. daily. 7. Lopressor 25 mg p.o. daily. 8. Claritin 10 mg p.o. daily. 9. DuoNeb q.i.d. 10.Lasix 40 mg daily. 12.Lanoxin 125 mcg p.o. daily. 13.Ceftin 500 mg p.o. b.i.d. 14.Symbicort 160/4.5 two puffs b.i.d. 15.Cordarone 200 mg p.o. b.i.d. 16.Albuterol 1-2 puffs q.i.d. p.r.n. 17.Xanax 0.5 t.i.d. p.r.n. ALLERGIES: CIPRO, SULFA, ULTRAM. FAMILY HISTORY: History of dementia in the family. SOCIAL HISTORY: History of smoking. REVIEW OF SYSTEMS: ENT: No diminished hearing or vision. CARDIOVASCULAR: As mentioned. RESPIRATORY: As mentioned earlier. GI: No nausea. : No dysuria. NERVOUS SYSTEM: No numbness, weakness. ALLERGY/IMMUNOLOGY: No history of asthma. MUSCULOSKELETAL: As mentioned earlier. HEMATOLOGY/ONCOLOGY: No history of anemia. ENDOCRINE: No history of diabetes or hypothyroidism. CONSTITUTIONAL: As mentioned. DERMATOLOGY: Negative. RHEUMATOLOGY: Negative. PSYCHIATRY: As mentioned earlier. EXAMINATION: Alert and oriented x3. Pulse is 76, blood pressure is 108/60, respiration 18, temperature 98.2, pulse ox 91% on room air. HEENT: Conjunctivae normal. Oral mucosa moist. Neck is no jugular venous distention. No carotid bruit. No lymph node enlargement. CARDIOVASCULAR: S1, S2. Ejection systolic murmur. No S3, no S4. RESPIRATORY: Breath sounds diminished in the bases. Bilateral scattered rhonchi and crackles. Expiratory wheezing also present. ABDOMEN: Soft, nontender. No mass palpable. LEGS: No edema, no swelling. NERVOUS SYSTEM: Higher functions as mentioned earlier, moves all 4 limbs, no focal motor deficits. LYMPHATICS: No lymphadenopathy in the neck, axillae, groin. SKIN: No ulcer, rash, bleeding. LABS: At this time shows WBC 8.2, hemoglobin 14.7. INR is 1.6. ASSESSMENT: 1. Chronic obstructive pulmonary disease acute exacerbation with acute purulent tracheobronchitis. 2. History of congestive heart failure with chronic diastolic dysfunction. 3. Severe mitral stenosis. 4. History of nicotine dependence. 5. History of noncompliance. 6. History of persistent atrial fibrillation with rapid ventricular rate. 7. History of severe mitral regurgitation. 8. History of pulmonary hypertension. 9. Cerebrovascular accident, transient ischemic attack. RECOMMENDATIONS AND DISCUSSION: This 61-year-old woman presented with multiple complex medical issues, will monitor the patient closely. Continue the current management and symptomatic treatment. The patient also possibly also has steroid induced diabetes mellitus also. At this time I recommend continue bronchodilators, empiric antibiotics. Closely follow with Dr. Wiley. Cardiothoracic Surgery also will be consulted. Otherwise resume the home medications. Guarded prognosis because of multiple complex medical issues. Further recommendations to follow. MMODL / IJN: [id number] / DERRELL
[2017-09-27 16:34] LABS: Appearance,Urine Clear (Clear); Bilirubin,Urine Negative (Negative); Blood,Urine Negative (Negative); Color,Urine Yellow; Glucose,Urine (UA) Negative (Negative); Hyaline Casts,Urine 19 /lpf (0-2); Ketones,Urine Negative (Negative); Leukocyte Esterase,Urine Negative (Negative); Mucus,Urine Rare /hpf; Nitrite,Urine Negative (Negative); PH, Urine 5.5 (5.0-8.0); Protein,Urine 1+ (Negative); RBC,Urine <1 /hpf (0-5); Urobilinogen,Urine <2.0 mg/dL (<2.0); WBC,Urine 5 /hpf (0-5)
[2017-09-27 17:03] LABS: Glucose,Whole Blood 205 mg/dL (75-99)
[2017-09-27] MEDS: SYMBICORT 160-4.5 MCG INHALER INHALATION SCH (19:13)
[2017-09-27 19:40] LABS: Hemoglobin A1C 5.1 % (4.0-6.0)
[2017-09-27] MEDS: ESCITALOPRAM 10 MG TAB PO SCH (20:45)
[2017-09-27] MEDS: TEMAZEPAM 30 MG CAP PO SCH (20:45)
[2017-09-27] MEDS: METOPROLOL TARTRATE 25 MG TAB PO SCH (20:46)
[2017-09-27] MEDS: WARFARIN 1 MG TAB PO SCH (20:46)
[2017-09-27 21:08] LABS: Glucose,Whole Blood 203 mg/dL (75-99)
[2017-09-27] MEDS: oxyCODONE-APAP 5-325MG 1 EACH TAB PO PRN (22:25)
[2017-09-28] MEDS: guaiFENesin SYRUP 100MG/5ML 200 MG/10 ML CUP PO PRN ×3 (04:53→17:48)
[2017-09-28] MEDS: oxyCODONE-APAP 5-325MG 1 EACH TAB PO PRN ×3 (04:53→19:43)
[2017-09-28] MEDS: methylPREDNISolone SOD SUCCI 125 MG/2 ML VIAL IV SCH ×4 (05:08→23:54)
[2017-09-28 07:17] LABS: Glucose,Whole Blood 139 mg/dL (75-99)
[2017-09-28] MEDS: IPRATROPIUM-ALBUTEROL 3 ML NEB INHALATION SCH ×4 (07:27→21:01)
[2017-09-28] MEDS: SYMBICORT 160-4.5 MCG INHALER INHALATION SCH ×2 (07:27→21:01)
[2017-09-28] MEDS: METOPROLOL TARTRATE 25 MG TAB PO SCH ×2 (08:12→20:59)
[2017-09-28] MEDS: AZITHROMYCIN 500 MG TAB PO SCH (08:12)
[2017-09-28] MEDS: INSULIN ASPART 100 UNIT/ML 1 ML 10 ML VIAL SQ SCH ×4 (08:13→21:09)
[2017-09-28] MEDS: LORATADINE 10 MG TAB PO SCH (08:13)
[2017-09-28] MEDS: AMIODARONE 200 MG TAB PO SCH ×2 (08:13→20:59)
[2017-09-28] MEDS: NICOTINE 21MG/24HR PATCH TRANSDERM SCH (08:13)
[2017-09-28] MEDS: DIGOXIN 125 MCG TAB PO SCH (08:13)
[2017-09-28] MEDS: PANTOPRAZOLE 40 MG TABLET PO SCH (08:13)
[2017-09-28] MEDS: clonazePAM 0.5 MG TAB PO PRN ×2 (08:18→19:49)
[2017-09-28] MEDS: OXYCONTIN PO SCH (08:19)
[2017-09-28] MEDS ORDERED: METOPROLOL TARTRATE 25 MG TAB PO SCH (09:00)
[2017-09-28 09:16] LABS: Anion Gap 14 mmol/L; Blood Urea Nitrogen 16 mg/dL (7-17); Calcium 9.6 mg/dL (8.4-10.2); Carbon Dioxide 20 mmol/L (22-30); Chloride 105 mmol/L (98-107); Glucose 167 mg/dL (74-99); Sodium 139 mmol/L (137-145)
[2017-09-28 09:23] LABS: Potassium 4.5 mmol/L (3.5-5.1)
[2017-09-28 09:36] LABS: Basophils % (A) 0 %; Eosinophils % (A) 0 %; Hypochromasia Slight; Lymphocytes # (A) 0.8 k/uL (1.0-4.8); Lymphocytes % (A) 8 %; MCH 30.3 pg (25.0-35.0); MCHC 31.6 g/dL (31.0-37.0); Mean Platelet Volume 7.5; Monocytes # (A) 0.3 k/uL (0-1.0); Monocytes % (A) 3 %; Neutrophils % (A) 88 %; Platelet Count 251 k/uL (150-450); Poikilocytosis Slight; RBC 4.27 m/uL (3.80-5.40); RDW 14.3 % (11.5-15.5); WBC 10.2 k/uL (3.8-10.6)
--- NOTE | 2017-09-28 10:50 | P.GSCN ---
<Toya Keating - Last Filed: 09/28/17 10:29> History of Present Illness Consult date: 09/28/17 Reason for Consult: Severe mitral stenosis, surgical recommendations. Requesting physician: Kayla Adorno History of present illness: This 61-year-old female who follows with Dr. Frias on an outpatient basis and has a history of mitral valve stenosis, mitral valve valvuloplasty in 2012, ASD closure, chronic atrial fibrillation on Coumadin for anticoagulation, CVA 2 with residual left-sided weakness, hypertension, hyperlipidemia, CHF, myocardial infarction, chronic tobacco dependence, pneumonia requiring intubation, and noncompliance presented to the emergency room with complaints of increasing shortness of breath associated with a productive cough and intermittent chest pain. She states her shortness of breath has been progressive over the last month and occurs at rest. She has a known history of severe mitral valve stenosis and was seen by cardiothoracic surgery in August 2016, she was told to obtain dental clearance, she has seen a dentist but to date does not have clearance for surgery. She denies any fevers, syncope, palpitations, or sick contacts. She was admitted for treatment with antibiotics and steroids. Dr. Nunn from cardiothoracic surgery was consulted regarding her mitral stenosis and further recommendations for surgery. Review of Systems 14 point review systems was completed and was negative except as noted. - Constitutional Reports fatigue - Cardiovascular Reports as per HPI, Reports irregular heart beat - Respiratory Reports as per HPI, Reports congestion, Reports cough with sputum, Reports respiratory infections - Neurological Reports weakness Past Medical History Past Medical History: Atrial Fibrillation, Coronary Artery Disease (CAD), Heart Failure, COPD, CVA/TIA, Hypertension, Myocardial Infarction ([place]), Osteoarthritis (OA), Pneumonia, Respiratory Disorder Additional Past Medical History / Comment(s): Chronic atrial fibrillation, COPD , mitral stenosis, chronic low back pain, DDD, CVA/multiple TIAs and issues with weakness and shuffling of bilateral feet due to previous stroke, mitral valve heart disease-valve stenosis/regurg previous valvuloplasty (2012), ASD closure, pneumonias, R ankle fracture x 2 with chronic edema. History of Any Multi-Drug Resistant Organisms: None Reported Past Surgical History: Cholecystectomy, Heart Catheterization, Orthopedic Surgery, Tonsillectomy Additional Past Surgical History / Comment(s): 06/2017 cardiac cath, 2013 mitral valvuloplasty/ASD closure, R ankle surgery with pins, bilateral carpal tunnel sx, D&C for miscarriage, colonoscopy. Past Anesthesia/Blood Transfusion Reactions: No Reported Reaction Past Psychological History: Depression Additional Psychological History / Comment(s): Pt resides with her spouse. She uses a cane or walker to ambulate. She drives. She has a nebulizer. She receives home care thru [facility]. Depression since 2013 due to her son overdosing on her pain medication. Smoking Status: Current every day smoker Past Alcohol Use History: None Reported Additional Past Alcohol Use History / Comment(s): Pt started smoking in 1971 and is less than a ppd smoker. Past Drug Use History: None Reported - Past Family History Mother Family Medical History: Blood Disorder, Dementia Additional Family Medical History / Comment(s): at age 84 from dementia and blood infection Father Family Medical History: Congestive Heart Failure (CHF), Myocardial Infarction ( [place]) Additional Family Medical History / Comment(s): heart failure, from heart attack at 74 in 1999 Sister(s) Family Medical History: No Reported History Additional Family Medical History / Comment(s): from car accident Medications and Allergies Home Medications Medication Instructions Recorded Confirmed Type Digoxin [Lanoxin] 125 mcg PO DAILY 05/22/17 09/27/17 History Loratadine [Claritin] 10 mg PO DAILY 05/22/17 09/27/17 History Pantoprazole [Protonix] 40 mg PO AC-BRKFST #30 tab 05/29/17 09/27/17 Rx Budesonide-Formot 160-4.5 Mcg 2 puff INHALATION RT-BID #1 inh 07/16/17 09/27/17 Rx [Symbicort 160-4.5 Mcg Inhaler] Albuterol Inhaler [Ventolin Hfa 1 - 2 puff INHALATION RT-QID PRN 09/01/17 History Inhaler] Furosemide [Lasix] 40 mg PO DAILY 09/01/17 09/27/17 History Oxycontin Er 5mg 5 mg PO DAILY 09/01/17 09/27/17 History clonazePAM [Klonopin ODT Wafer] 0.25 mg PO TID PRN 09/01/17 09/27/17 History ALPRAZolam [Xanax] 0.25 mg PO TID PRN #15 tab 09/06/17 09/27/17 Rx Amiodarone [Cordarone] 200 mg PO BID #60 tab 09/06/17 09/27/17 Rx Cefuroxime Axetil [Ceftin] 500 mg PO BID #8 tab 09/06/17 09/27/17 Rx Escitalopram [Lexapro] 10 mg PO HS #30 09/06/17 09/27/17 Rx Ipratropium-Albuterol Nebulize 3 ml INHALATION RT-QID #120 09/06/17 09/27/17 Rx [Duoneb 0.5 mg-3 mg/3 ml Soln] ampul.neb Metoprolol Tartrate [Lopressor] 25 mg PO DAILY #30 tab 09/06/17 09/27/17 Rx Temazepam [Restoril] 15 mg PO HS #1 09/06/17 09/27/17 Rx Warfarin [Coumadin] 1 mg PO HS #30 09/06/17 09/27/17 Rx oxyCODONE-APAP 5-325MG [Percocet 1 tab PO Q6HR PRN 09/27/17 09/27/17 History 5-325 mg] Allergies Allergy/AdvReac Type Severity Reaction Status Date / Time ciprofloxacin [From Cipro] Allergy Rash/Hives Verified 09/27/17 08:48 Sulfa (Sulfonamide Allergy Rash/Hives Verified 09/27/17 08:48 Antibiotics) tramadol [From Ultram] AdvReac Rash/Hives Verified 09/27/17 08:48 Surgical - Exam Vital Signs Temp Pulse Resp BP Pulse Ox 99 F 97 22 113/81 92 L 09/27/17 06:09 09/27/17 06:09 09/27/17 06:09 09/27/17 06:09 09/27/17 06:09 - General well developed, no distress, no pain, chronically ill - Eyes PERRL, normal ocular movement - ENT no hearing loss, poor fpc - Neck trachea midline - Respiratory Lungs sounds diminished bilaterally with coarse breath sounds at the bases and expiratory wheezes present. Respirations even, nonlabored. Currently on 3 L nasal cannula with oxygen saturation 93%. - Cardiovascular S1, S2 present. Irregular rate and rhythm, controlled atrial fibrillation on telemetry. Palpable peripheral pulses bilaterally. No edema present. - Abdomen Abdomen: soft, non tender, bowel sounds - Genitourinary Deferred - Rectum Deferred - Integumentary no rash, no growths - Musculoskeletal Left-sided is slightly weaker than the right side, patient walks with a cane. - Psychiatric oriented to time, oriented to person, oriented to place, speech is normal, memory intact Results - Labs 09/28/17 08:12 09/28/17 08:12 Abnormal Lab Results - Last 24 Hours (Table) 09/27/17 09/27/17 09/27/17 Range/Units 12:00 16:00 17:02 Neutrophils # (1.3-7.7) k/uL Lymphocytes # (1.0-4.8) k/uL PT (9.0-12.0) sec INR (<1.2) Carbon Dioxide (22-30) mmol/L Glucose (74-99) mg/dL POC Glucose (mg/dL) 245 H 205 H (75-99) mg/dL Urine Protein 1+ H (Negative) Hyaline Casts 19 H (0-2) /lpf Urine Mucus Rare H (None) /hpf 09/27/17 09/28/17 09/28/17 Range/Units 20:44 07:07 08:12 Neutrophils # 9.0 H (1.3-7.7) k/uL Lymphocytes # 0.8 L (1.0-4.8) k/uL PT (9.0-12.0) sec INR (<1.2) Carbon Dioxide (22-30) mmol/L Glucose (74-99) mg/dL POC Glucose (mg/dL) 203 H 139 H (75-99) mg/dL Urine Protein (Negative) Hyaline Casts (0-2) /lpf Urine Mucus (None) /hpf 09/28/17 09/28/17 Range/Units 08:12 08:12 Neutrophils # (1.3-7.7) k/uL Lymphocytes # (1.0-4.8) k/uL PT 18.0 H (9.0-12.0) sec INR 2.0 H (<1.2) Carbon Dioxide 20 L (22-30) mmol/L Glucose 167 H (74-99) mg/dL POC Glucose (mg/dL) (75-99) mg/dL Urine Protein (Negative) Hyaline Casts (0-2) /lpf Urine Mucus (None) /hpf Microbiology - Last 24 Hours (Table) 09/27/17 06:32 Blood Culture - Preliminary Blood No Growth after 24 hours 09/27/17 16:00 Urine Culture - Preliminary Urine,Catheterized Diabetes panel 09/27/17 09/28/17 Range/Units 06:32 08:12 Sodium 139 (137-145) mmol/L Potassium 4.5 (3.5-5.1) mmol/L Chloride 105 (98-107) mmol/L Carbon Dioxide 20 L (22-30) mmol/L BUN 16 (7-17) mg/dL Creatinine 0.64 (0.52-1.04) mg/dL Glucose 167 H (74-99) mg/dL Hemoglobin A1c 5.1 (4.0-6.0) % Calcium 9.6 (8.4-10.2) mg/dL Calcium panel 09/28/17 Range/Units 08:12 Calcium 9.6 (8.4-10.2) mg/dL Pituitary panel 09/28/17 Range/Units 08:12 Sodium 139 (137-145) mmol/L Potassium 4.5 (3.5-5.1) mmol/L Chloride 105 (98-107) mmol/L Carbon Dioxide 20 L (22-30) mmol/L BUN 16 (7-17) mg/dL Creatinine 0.64 (0.52-1.04) mg/dL Glucose 167 H (74-99) mg/dL Calcium 9.6 (8.4-10.2) mg/dL Adrenal panel 09/28/17 Range/Units 08:12 Sodium 139 (137-145) mmol/L Potassium 4.5 (3.5-5.1) mmol/L Chloride 105 (98-107) mmol/L Carbon Dioxide 20 L (22-30) mmol/L BUN 16 (7-17) mg/dL Creatinine 0.64 (0.52-1.04) mg/dL Glucose 167 H (74-99) mg/dL Calcium 9.6 (8.4-10.2) mg/dL - Imaging Chest x-ray: report reviewed, image reviewed EKG: image reviewed Assessment and Plan (1) History of pneumonia Current Visit: Yes Status: Acute Code(s): Z87.01 - PERSONAL HISTORY OF PNEUMONIA (RECURRENT) SNOMED Code(s): 148297335 (2) COPD (chronic obstructive pulmonary disease) Current Visit: Yes Status: Chronic Code(s): J44.9 - CHRONIC OBSTRUCTIVE PULMONARY DISEASE, UNSPECIFIED SNOMED Code(s): 65040884 (3) Chronic a-fib Current Visit: Yes Status: Chronic Code(s): I48.2 - CHRONIC ATRIAL FIBRILLATION SNOMED Code(s): 530980936 (4) History of CVA (cerebrovascular accident) Current Visit: Yes Status: Chronic Code(s): Z86.73 - PRSNL HX OF TIA (TIA), AND CEREB INFRC W/O RESID DEFICITS SNOMED Code(s): 321740646 (5) Mitral valve stenosis, severe Current Visit: Yes Status: Chronic Code(s): I05.0 - RHEUMATIC MITRAL STENOSIS SNOMED Code(s): 27477459 (6) Nicotine dependence Current Visit: No Status: Resolved Code(s): F17.200 - NICOTINE DEPENDENCE, UNSPECIFIED, UNCOMPLICATED SNOMED Code(s): 73083657 (7) Noncompliance Current Visit: Yes Status: Chronic Code(s): Z91.19 - PATIENT'S NONCOMPLIANCE W OTH MEDICAL TREATMENT AND REGIMEN SNOMED Code(s): 7141583 Plan: The patient was seen and examined at the bedside. Chart/diagnostics are reviewed. Recommend maximizing her respiratory status. I did call the patient' s dentist, [facility] at [phone]. They stated that the patient had been in to see them in August but did not receive dental clearance. In fact, she has an appointment October 01 for cleaning and recommendations for further workup. Again, patient will need dental clearance prior to any valve surgery. This has been discussed with the patient. She may follow-up with us once dental clearance is obtained to make further plans for mitral valve surgery. She's been counseled to refrain from smoking. Thank you Dr. Adorno for this consult. Please call us with any further questions. Time with Patient: Greater than 30 <Yann Nunn - Last Filed: 09/29/17 10:26> Surgical - Exam Vital Signs Temp Pulse Resp BP Pulse Ox 99 F 97 22 113/81 92 L 09/27/17 06:09 09/27/17 06:09 09/27/17 06:09 09/27/17 06:09 09/27/17 06:09 Results - Labs 09/29/17 08:21 09/29/17 08:21 Abnormal Lab Results - Last 24 Hours (Table) 09/28/17 09/28/17 09/28/17 Range/Units 11:50 16:41 20:32 WBC (3.8-10.6) k/uL RDW (11.5-15.5) % Neutrophils # (1.3-7.7) k/uL Lymphocytes # (1.0-4.8) k/uL PT (9.0-12.0) sec INR (<1.2) Glucose (74-99) mg/dL POC Glucose (mg/dL) 144 H 192 H 184 H (75-99) mg/dL 09/29/17 09/29/17 09/29/17 Range/Units 06:49 08:21 08:21 WBC 14.9 H (3.8-10.6) k/uL RDW 15.7 H (11.5-15.5) % Neutrophils # 13.6 H (1.3-7.7) k/uL Lymphocytes # 0.6 L (1.0-4.8) k/uL PT 23.1 H (9.0-12.0) sec INR 2.6 H (<1.2) Glucose (74-99) mg/dL POC Glucose (mg/dL) 168 H (75-99) mg/dL 09/29/17 Range/Units 08:21 WBC (3.8-10.6) k/uL RDW (11.5-15.5) % Neutrophils # (1.3-7.7) k/uL Lymphocytes # (1.0-4.8) k/uL PT (9.0-12.0) sec INR (<1.2) Glucose 160 H (74-99) mg/dL POC Glucose (mg/dL) (75-99) mg/dL Microbiology - Last 24 Hours (Table) 09/27/17 06:32 Blood Culture - Preliminary Blood No Growth after 48 hours 09/27/17 16:00 Urine Culture - Final Urine,Catheterized Diabetes panel 09/29/17 Range/Units 08:21 Sodium 139 (137-145) mmol/L Potassium 4.2 (3.5-5.1) mmol/L Chloride 102 (98-107) mmol/L Carbon Dioxide 25 (22-30) mmol/L BUN 17 (7-17) mg/dL Creatinine 0.74 (0.52-1.04) mg/dL Glucose 160 H (74-99) mg/dL Calcium 9.7 (8.4-10.2) mg/dL Calcium panel 09/29/17 Range/Units 08:21 Calcium 9.7 (8.4-10.2) mg/dL Pituitary panel 09/29/17 Range/Units 08:21 Sodium 139 (137-145) mmol/L Potassium 4.2 (3.5-5.1) mmol/L Chloride 102 (98-107) mmol/L Carbon Dioxide 25 (22-30) mmol/L BUN 17 (7-17) mg/dL Creatinine 0.74 (0.52-1.04) mg/dL Glucose 160 H (74-99) mg/dL Calcium 9.7 (8.4-10.2) mg/dL Adrenal panel 09/29/17 Range/Units 08:21 Sodium 139 (137-145) mmol/L Potassium 4.2 (3.5-5.1) mmol/L Chloride 102 (98-107) mmol/L Carbon Dioxide 25 (22-30) mmol/L BUN 17 (7-17) mg/dL Creatinine 0.74 (0.52-1.04) mg/dL Glucose 160 H (74-99) mg/dL Calcium 9.7 (8.4-10.2) mg/dL Assessment and Plan Plan: The patient was seen and examined. I agree with the above assessment and plan. The patient is a 61-year-old female, well-known to our service, who was initially evaluated over one year ago for mitral stenosis and tricuspid regurgitation. At that point there was discussion regarding surgery however the patient was lost to follow-up. In the meantime she has had multiple admissions to the hospital for CHF. She reports shortness of breath with minimal exertion. She is currently on antibiotics and steroids per the primary service. Overall, the patient has multiple medical problems including previous strokes, atrial fibrillation on Coumadin, tobacco use, and noncompliance. We will continue with medical management for now. Upon discharge from the hospital she will need dental clearance. She may follow-up with me in the office as an outpatient for discussion regarding mitral valve replacement and tricuspid valve repair.
--- NOTE | 2017-09-28 11:29 | P.CRDCN ---
History of Present Illness Consult date: 09/28/17 History of present illness: Mrs. Kirkland is a pleasant 61-year-old female with past medical history significant for severe mitral stenosis s/p valvuloplasty (2012) , diastolic heart failure, COPD, chronic persistent atrial fibrillation on fpc anti-coagulation with coumadin, severe pulmonary hypertension, CVA/TIA and mild non-obstructive coronary artery disease. She is awaiting mitral valve repair once she completes necessary dental repair. She follows with Dr. BRODIE Nichole as an outpatient. She has presented to the hospital with increased shortness of breath with exertion and cough. Upon arrival she was in atrial fibrillation with mildly elevated ventricular response. Beta tay has been adjusted per medical team by discontinuing toprol and ordering lopressor 25 mg BID. Heart rate has been much better controlled 60-80's. Lasix was not continued on admission for some reason and she had an episode of urinary retention yesterday which required straight cath of 800cc. She denies chest pain, palpitations, dizziness, nausea or vomiting. She states her next dental cleaning is scheduled for 10/01. EKG on arrival shows atrial fibrillation with non-specific ST changes may be secondary to fast rate, will repeat. Most recent echocardiogram 06/2017 revealed preserved LV function with severe mitral stenosis, mitral regurgitation, tricuspid regurgitation, interarterial closure device without evidence of shunt, mildly thickened aortic valve and severe pulmonary hypertension with RVSP 71.99 mmHg. Chest xray shows evidence of COPD and cardiomegaly. Laboratory data reviewed, INR 2.0, hgb 14.7, plt 313, potassium 3.9, cr 0.88, proBNP 2850, magnesium 1.7. Current cardiac medications include coumadin 1mg, lopressor 25mg, lasix 40mg, digoxin 125mcg, amiodarone 200mg BID. Review of Systems At the time of my exam CONSTITUTIONAL: Denies fever. Denies chills. EYES: Denies blurred vision. Denies vision changes. Denies eye pain. EARS, NOSE, MOUTH & THROAT: Denies headache. Denies sore throat. Denies ear pain. CARDIOVASCULAR: Denies chest pain. Complains of exertional shortness of breath. Denies orthopnea. Denies PND. Denies palpitations. RESPIRATORY: Complains of dry cough. GASTROINTESTINAL: Denies abdominal pain. Denies diarrhea. Denies constipation. Denies nausea. Denies vomiting. MUSCULOSKELETAL: Denies myalgias. INTEGUMENTARY: Denies pruitis. Denies rash. NEUROLOGIC: Denies numbness. Denies tingling. Denies weakness. PSYCHIATRIC: Denies anxiety. Denies depression. ENDOCRINE: Denies fatigue. Denies weight change. Denies polydipsia. Denies polyurina. GENITOURINARY: Denies burning, hematuria or urgency with micturation. Complains of inability to urinate. HEMATOLOGIC: Denies history of anemia. Denies bleeding. Past Medical History Past Medical History: Atrial Fibrillation, Coronary Artery Disease (CAD), Heart Failure, COPD, CVA/TIA, Hypertension, Osteoarthritis (OA), Pneumonia Additional Past Medical History / Comment(s): Chronic atrial fibrillation, COPD , mitral stenosis, chronic low back pain, DDD, CVA/multiple TIAs and issues with weakness and shuffling of bilateral feet due to previous stroke, mitral valve heart disease-valve stenosis/regurg previous valvuloplasty (2012), ASD closure, pneumonias, R ankle fracture x 2 with chronic edema. History of Any Multi-Drug Resistant Organisms: None Reported Past Surgical History: Cholecystectomy, Heart Catheterization, Orthopedic Surgery, Tonsillectomy Additional Past Surgical History / Comment(s): 06/2017 cardiac cath, 2013 mitral valvuloplasty/ASD closure, R ankle surgery with pins, bilateral carpal tunnel sx, D&C for miscarriage, colonoscopy. Past Anesthesia/Blood Transfusion Reactions: No Reported Reaction Past Psychological History: Depression Additional Psychological History / Comment(s): Pt resides with her spouse. She uses a cane or walker to ambulate. She drives. She has a nebulizer. She receives home care thru [facility]. Depression since 2013 due to her son overdosing on her pain medication. Smoking Status: Current every day smoker Past Alcohol Use History: None Reported Additional Past Alcohol Use History / Comment(s): Pt started smoking in 1971 and is less than a ppd smoker. Past Drug Use History: None Reported - Past Family History Mother Family Medical History: Blood Disorder, Dementia Additional Family Medical History / Comment(s): at age 84 from dementia and blood infection Father Family Medical History: Congestive Heart Failure (CHF), Myocardial Infarction ( PR) Additional Family Medical History / Comment(s): heart failure, from heart attack at 74 in 1999 Sister(s) Family Medical History: No Reported History Additional Family Medical History / Comment(s): from car accident Medications and Allergies Home Medications Medication Instructions Recorded Confirmed Type Digoxin [Lanoxin] 125 mcg PO DAILY 05/22/17 09/27/17 History Loratadine [Claritin] 10 mg PO DAILY 05/22/17 09/27/17 History Pantoprazole [Protonix] 40 mg PO AC-BRKFST #30 tab 05/29/17 09/27/17 Rx Budesonide-Formot 160-4.5 Mcg 2 puff INHALATION RT-BID #1 inh 07/16/17 09/27/17 Rx [Symbicort 160-4.5 Mcg Inhaler] Albuterol Inhaler [Ventolin Hfa 1 - 2 puff INHALATION RT-QID PRN 09/01/17 History Inhaler] Furosemide [Lasix] 40 mg PO DAILY 09/01/17 09/27/17 History Oxycontin Er 5mg 5 mg PO DAILY 09/01/17 09/27/17 History clonazePAM [Klonopin ODT Wafer] 0.25 mg PO TID PRN 09/01/17 09/27/17 History ALPRAZolam [Xanax] 0.25 mg PO TID PRN #15 tab 09/06/17 09/27/17 Rx Amiodarone [Cordarone] 200 mg PO BID #60 tab 09/06/17 09/27/17 Rx Cefuroxime Axetil [Ceftin] 500 mg PO BID #8 tab 09/06/17 09/27/17 Rx Escitalopram [Lexapro] 10 mg PO HS #30 09/06/17 09/27/17 Rx Ipratropium-Albuterol Nebulize 3 ml INHALATION RT-QID #120 09/06/17 09/27/17 Rx [Duoneb 0.5 mg-3 mg/3 ml Soln] ampul.neb Metoprolol Tartrate [Lopressor] 25 mg PO DAILY #30 tab 09/06/17 09/27/17 Rx Temazepam [Restoril] 15 mg PO HS #1 09/06/17 09/27/17 Rx Warfarin [Coumadin] 1 mg PO HS #30 09/06/17 09/27/17 Rx oxyCODONE-APAP 5-325MG [Percocet 1 tab PO Q6HR PRN 09/27/17 09/27/17 History 5-325 mg] Allergies Allergy/AdvReac Type Severity Reaction Status Date / Time ciprofloxacin [From Cipro] Allergy Rash/Hives Verified 09/27/17 08:48 Sulfa (Sulfonamide Allergy Rash/Hives Verified 09/27/17 08:48 Antibiotics) tramadol [From Ultram] AdvReac Rash/Hives Verified 09/27/17 08:48 Physical Exam Vitals: Vital Signs Temp Pulse Pulse Resp BP BP BP 09/28/17 08:11 101/61 09/28/17 07:43 76 09/28/17 07:28 76 09/28/17 06:45 09/28/17 06:40 96.9 F L 71 18 85/61 09/27/17 23:00 97.3 F L 76 18 97/56 09/27/17 20:40 92 121/68 09/27/17 19:30 70 09/27/17 19:13 72 09/27/17 15:33 74 09/27/17 15:21 72 09/27/17 15:00 97.1 F L 107 H 18 141/67 09/27/17 11:28 76 09/27/17 11:19 68 09/27/17 11:16 98.9 F 107 H 18 108/63 09/27/17 09:36 99 F 99 20 126/80 09/27/17 09:18 99 20 126/80 Pulse Ox 09/28/17 08:11 09/28/17 07:43 09/28/17 07:28 09/28/17 06:45 93 L 09/28/17 06:40 85 L 09/27/17 23:00 90 L 09/27/17 20:40 09/27/17 19:30 09/27/17 19:13 09/27/17 15:33 09/27/17 15:21 09/27/17 15:00 93 L 09/27/17 11:28 09/27/17 11:19 92 L 09/27/17 11:16 91 L 09/27/17 09:36 90 L 09/27/17 09:18 90 L Intake and Output 09/27/17 09/28/1709/28/18 22:59 06:59 14:59 Intake Total 300 400 Balance 300 400 Intake: Oral 300 400 Other: # Voids 0 2 Blood pressure 101/61, heart rate of 76 afebrile GENERAL: This is a 61-year-old female in no apparent distress at the time of my examination. HEENT: Head is atraumatic, normocephalic. Pupils are equal, round. Sclerae anicteric. Conjunctivae are clear. Mucous membranes of the mouth are moist. Neck is supple. There is no jugular venous distention. No carotid bruit is heard. LUNGS: Expiratory wheezes throughout, no rales or rhonchi. No chest wall tenderness is noted on palpation or with deep breathing. HEART: Irregular rate and rhythm with systolic murmur at the base and diastolic murmur at the apex. No rubs or gallops. S1 and S2 heard. ABDOMEN: Soft, nontender. Bowel sounds are heard. No organomegaly noted. EXTREMITIES: 1+ peripheral pulses with no evidence of peripheral edema and no calf tenderness noted. NEUROLOGIC: Patient is awake, alert and oriented x3. Results 09/28/17 08:12 09/28/17 08:12 Current Medications Generic Name Dose Route Start Last Admin Trade Name Freq PRN Reason Stop Dose Admin Albuterol/Ipratropium 3 ml 09/27/17 12:00 09/28/17 07:27 Duoneb 0.5 Mg-3 Mg/3 Ml Soln INHALATION 3 ml RT-QID JUAN A Administration Alprazolam 0.25 mg 09/27/17 11:16 Xanax PO TID PRN Anxiety Amiodarone HCl 200 mg 09/27/17 11:30 09/28/17 08:13 Cordarone PO 200 mg BID JUAN A Administration Azithromycin 500 mg 09/28/17 09:00 09/28/17 08:12 Zithromax PO 500 mg DAILY JUAN A Administration Budesonide/Formoterol Fumarate 2 puff 09/27/17 20:00 09/28/17 07:27 Symbicort 160-4.5 Mcg Inhaler INHALATION 2 puff RT-BID JUAN A Administration Ceftriaxone Sodium 1,000 mg 09/27/17 12:00 09/27/17 13:42 Rocephin IVP 1,000 mg Q24H JUAN A Administration Clonazepam 0.25 mg 09/27/17 11:17 09/28/17 08:18 Klonopin PO 0.25 mg TID PRN Administration Anxiety Digoxin 125 mcg 09/27/17 11:30 09/28/17 08:13 Lanoxin PO 125 mcg DAILY JUAN A Administration Escitalopram Oxalate 10 mg 09/27/17 21:00 09/27/17 20:45 Lexapro PO 10 mg HS JUAN A Administration Guaifenesin 200 mg 09/27/17 14:46 09/28/17 04:53 Robitussin PO 200 mg Q6H PRN Administration Cough Insulin Aspart 0 unit 09/27/17 12:30 09/28/17 08:13 Novolog SQ 1 unit ACHS JUAN A Administration Protocol Loratadine 10 mg 09/28/17 09:00 09/28/17 08:13 Claritin PO 10 mg DAILY JUAN A Administration Methylprednisolone Sodium Succinate 60 mg 09/27/17 12:00 09/28/17 05:08 Solu-Medrol IV 60 mg Q6HR JUAN A Administration Metoprolol Tartrate 25 mg 09/27/17 21:00 09/28/17 08:12 Lopressor PO 25 mg BID JUAN A Administration Nicotine 1 patch 09/27/17 09:00 09/28/17 08:13 Habitrol 21mg/24hr Patch TRANSDERM 1 patch DAILY [facility] Administration Non-Formulary Medication 5 mg 09/28/17 09:00 09/28/17 08:19 Oxycontin Er 5mg PO Not Given DAILY [facility] Oxycodone/Acetaminophen 1 each 09/27/17 11:17 09/28/17 04:53 Percocet 5-325 PO 1 each Q6HR PRN Administration Pain Pantoprazole Sodium 40 mg 09/28/17 07:30 09/28/17 08:13 Protonix PO 40 mg AC-BRKFST JUAN A Administration Temazepam 15 mg 09/27/17 21:00 09/27/17 20:45 Restoril PO 15 mg HS JUAN A Administration Warfarin Sodium 1 mg 09/27/17 21:00 09/27/17 20:46 Coumadin PO 1 mg HS JUAN A Administration Intake and Output 09/27/17 09/28/17 09/28/17 22:59 06:59 14:59 Intake Total 300 400 Balance 300 400 Intake: Oral 300 400 Other: # Voids 0 2 09/27/17 06:32 09/27/17 06:32 Assessment and Plan Assessment: ASSESSMENT 1. Chronic persistent atrial fibrillation with poorly controlled ventricular response on long-term anticoagulation with Coumadin 2. Multi-valvular heart disease with severe mitral stenosis and regurgitation s /p valvuloplasty. Currently awaiting valve repair. 3. Severe pulmonary hypertension, RVSP 71.99 mmHg 4. Chronic stable non-obstructive coronary artery disease PLAN Repeat manual blood pressure. Resume lasix 40 mg PO daily. Continue with amiodarone, digoxin and lopressor for heart rate control. Thank you kindly for this consultation. The above impression and plan of care have been discussed and directed by the signing physician. Sofía Hubbard, nurse practitioner, acting as a scribe for signing physician.
[2017-09-28] MEDS: FUROSEMIDE 40 MG TAB PO SCH (11:44)
[2017-09-28 11:52] LABS: Glucose,Whole Blood 144 mg/dL (75-99)
[2017-09-28] MEDS: cefTRIAXone IN SWFI 1,000 MG/10 ML SYRINGE IVP SCH (12:07)
--- NOTE | 2017-09-28 12:27 | P.PN ---
Subjective Progress Note Date: 09/28/17 Principal diagnosis: Acute COPD exacerbation. Dyspnea, multifactorial, history of severe mitral stenosis, severe pulmonary hypertension, diastolic heart failure, COPD. 61-year-old female patient who is well-known to us. The patient is known to have COPD, mitral stenosis, chronic atrial fibrillation, severe pulmonary hypertension, was coming into the hospital because of worsening shortness of breath. The patient was being Complaint for valvular surgery and mitral valve replacement however based on her COPD and her comorbidities and her poor dental condition the surgery got delayed at this point. The patient has had multiple hospitalization for CHF, A. fib and complications of heart failure and COPD exacerbation. She came into the ED last night because of increased shortness of breath and she was mainly bronchospastic and wheezy during this current hospitalization. The BNP was mildly elevated. The patient's INR was subtherapeutic at 1.6. The chest x-ray was stable with COPD and mild cardiomegaly. The patient apparently had seen Dr. Hare and she was told that her teeth condition has been adequate at this point for any form of cardiac or valve surgery. On 09/28/2017 patient seen in follow-up on medical surgical floor. Denies any acute distress. She is currently resting comfortably in bed, no signs of discomfort, oral residue distress noted. Lung sounds are positive for faint wheezes, and crackles over posterior bases. Become short of breath with any activity. Continues to be hypoxemic, on room air her O2 sat is 85%. On 3 L she is up to 93%. Afebrile, blood pressure this morning is marginally low, 85/ 61. Patient is asymptomatic with that. Microbiology results have been reviewed , urine and blood culture show no growth. Today's lab work shows no evidence of leukocytosis, WBCs 10.2, hemoglobin is 13, INR is 2.0, B1 is 16, creatinine 0.64. Patient remains in A. fib with a controlled rate. Patient was seen in consultation by cardiology, who will be resuming her home dose oral Lasix, patient continues on amiodarone, digoxin and Lopressor for heart rate control. Cardiothoracic surgery has also seen patient in evaluation, patient is still in need of dental clearance. Objective - Vital Signs Vital signs: Vital Signs Temp 96.9 F L 09/28/17 06:40 Pulse 72 09/28/17 11:38 Resp 18 09/28/17 06:40 BP 92/60 09/28/17 10:44 Pulse Ox 93 L 09/28/17 06:45 Intake & Output 09/27/17 09/28/17 09/28/17 18:59 06:59 18:59 Intake Total 700 Balance 700 Weight 58.96 kg Intake: Oral 700 Other: # Voids 1 2 - Exam GENERAL EXAM: Alert, active, comfortable in no apparent distress. HEAD: Normocephalic. EYES: Normal reaction of pupils, equal size. NOSE: Clear with pink turbinates. THROAT: No erythema or exudates. NECK: No masses, no JVD. CHEST: No chest wall deformity. LUNGS: Equal air entry with crackles in the posterior bases. Diminished.. There are diffuse expiratory wheezes throughout the lung cuadra bilaterally. CVS: Irregular S1 and S2 normal with an audible murmur, and a diastolic rumble and the patient's cardiac rhythm is irregular secondary his atrial fibrillation. ABDOMEN: No hepatosplenomegaly, normal bowel sounds, no guarding or rigidity. SPINE: No scoliosis or deformity SKIN: No rashes CENTRAL NERVOUS SYSTEM: No focal deficits, tone is normal in all 4 extremities. EXTREMITIES: There is trace peripheral edema. No clubbing, no cyanosis. Peripheral pulses are intact. - Labs CBC & Chem 7: 09/28/17 08:12 09/28/17 08:12 Labs: Abnormal Lab Results - Last 24 Hours (Table) 09/27/17 09/27/17 09/27/17 Range/Units 16:00 17:02 20:44 Neutrophils # (1.3-7.7) k/uL Lymphocytes # (1.0-4.8) k/uL PT (9.0-12.0) sec INR (<1.2) Carbon Dioxide (22-30) mmol/L Glucose (74-99) mg/dL POC Glucose (mg/dL) 205 H 203 H (75-99) mg/dL Urine Protein 1+ H (Negative) Hyaline Casts 19 H (0-2) /lpf Urine Mucus Rare H (None) /hpf 09/28/17 09/28/17 09/28/17 Range/Units 07:07 08:12 08:12 Neutrophils # 9.0 H (1.3-7.7) k/uL Lymphocytes # 0.8 L (1.0-4.8) k/uL PT 18.0 H (9.0-12.0) sec INR 2.0 H (<1.2) Carbon Dioxide (22-30) mmol/L Glucose (74-99) mg/dL POC Glucose (mg/dL) 139 H (75-99) mg/dL Urine Protein (Negative) Hyaline Casts (0-2) /lpf Urine Mucus (None) /hpf 09/28/17 09/28/17 Range/Units 08:12 11:50 Neutrophils # (1.3-7.7) k/uL Lymphocytes # (1.0-4.8) k/uL PT (9.0-12.0) sec INR (<1.2) Carbon Dioxide 20 L (22-30) mmol/L Glucose 167 H (74-99) mg/dL POC Glucose (mg/dL) 144 H (75-99) mg/dL Urine Protein (Negative) Hyaline Casts (0-2) /lpf Urine Mucus (None) /hpf Microbiology - Last 24 Hours (Table) 09/27/17 06:32 Blood Culture - Preliminary Blood No Growth after 24 hours 09/27/17 16:00 Urine Culture - Preliminary Urine,Catheterized Assessment and Plan Plan: Assessment 1 acute COPD exacerbation with secondary shortness of breath. The patient has chronic dyspnea and her shortness of breath is multifactorial knowing that she has also severe mitral stenosis, severe pulmonary hypertension and diastolic heart failure in addition to her COPD. Nevertheless, the acute exacerbating factor for now as the COPD exacerbation. CHF seems to be currently inactive and stable. 2 CHF with diastolic dysfunction 3 severe mitral stenosis with previous valvuloplasty. The patient was being contemplated for mitral valve replacement. She has severe pulmonary hypertension with a PA pressure estimated to be in the mid 70s. 4 chronic atrial fibrillation, rate is controlled and the patient is anticoagulated with a subtherapeutic PT/INR 5 chronic smoker and the patient claims that she hasn't smoked for the past 2 weeks 6 CVA/TIA, history of 7 severe pulmonary hypertension with a right ventricular systolic pressure of 71.9 mmHg 8 poor dental condition and the patient has been given clearance by dental surgery 9 hypertension 10 history of ASD closure Plan We will continue with treatment of her acute COPD exacerbation. Continue nebulized treatments, continue IV Solu-Medrol at 60 mg every 6 hours. Empiric antibiotic coverage in the form of Rocephin and Zithromax. Management of chronic exacerbation and CHF. Her INR is therapeutic today, 2.0, she remains in A. fib, with a controlled rate. Cardiology and cardiothoracic surgery input were noted and appreciated. Patient is still in need of dental clearance before proceeding with valve surgery I performed a history & physical examination of the patient and discussed their management with my nurse practitioner, Noemi Donald. I reviewed the nurse practitioner's note and agree with the documented findings and plan of care. Lung sounds are positive for diffuse wheezes and bibasilar crackles. The findings and the impression was discussed with the patient. I attest to the documentation by the nurse practitioner. Time with Patient: Less than 30
[2017-09-28 16:47] LABS: Glucose,Whole Blood 192 mg/dL (75-99)
[2017-09-28 20:51] LABS: Glucose,Whole Blood 184 mg/dL (75-99)
[2017-09-28] MEDS: WARFARIN 1 MG TAB PO SCH (20:59)
[2017-09-28] MEDS: ESCITALOPRAM 10 MG TAB PO SCH (20:59)
[2017-09-28] MEDS ORDERED: TEMAZEPAM 15 MG CAP PO SCH (21:09)
[2017-09-29] MEDS ORDERED: TEMAZEPAM 30 MG CAP PO ONE (00:10)
[2017-09-29] MEDS: TEMAZEPAM 30 MG CAP PO SCH ×2 (01:29→22:53)
[2017-09-29] MEDS: oxyCODONE-APAP 5-325MG 1 EACH TAB PO PRN ×4 (02:07→22:52)
[2017-09-29] MEDS: methylPREDNISolone SOD SUCCI 125 MG/2 ML VIAL IV SCH ×4 (06:08→22:59)
[2017-09-29] MEDS: guaiFENesin SYRUP 100MG/5ML 200 MG/10 ML CUP PO PRN ×3 (06:11→18:04)
[2017-09-29] MEDS: IPRATROPIUM-ALBUTEROL 3 ML NEB INHALATION SCH ×4 (07:07→19:06)
[2017-09-29] MEDS: SYMBICORT 160-4.5 MCG INHALER INHALATION SCH ×2 (07:07→19:06)
[2017-09-29 07:25] LABS: Glucose,Whole Blood 168 mg/dL (75-99)
[2017-09-29] MEDS: PANTOPRAZOLE 40 MG TABLET PO SCH (08:08)
[2017-09-29] MEDS: INSULIN ASPART 100 UNIT/ML 1 ML 10 ML VIAL SQ SCH ×4 (08:08→21:09)
[2017-09-29] MEDS: AMIODARONE 200 MG TAB PO SCH ×2 (08:08→21:08)
[2017-09-29] MEDS: DIGOXIN 125 MCG TAB PO SCH (08:09)
[2017-09-29] MEDS: AZITHROMYCIN 500 MG TAB PO SCH (08:09)
[2017-09-29] MEDS: LORATADINE 10 MG TAB PO SCH (08:09)
[2017-09-29] MEDS: FUROSEMIDE 40 MG TAB PO SCH (08:09)
[2017-09-29] MEDS: METOPROLOL TARTRATE 25 MG TAB PO SCH ×2 (08:10→21:08)
[2017-09-29] MEDS: NICOTINE 21MG/24HR PATCH TRANSDERM SCH (08:10)
[2017-09-29] MEDS: OXYCONTIN PO SCH (08:11)
[2017-09-29] MEDS: clonazePAM 0.5 MG TAB PO PRN (08:15)
--- NOTE | 2017-09-29 08:15 | P.PN ---
Subjective Progress Note Date: 09/29/17 Principal diagnosis: Severe mitral valve stenosis. 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 Patient's currently sitting up in bed in no acute distress. Denies chest pain, shortness of breath. Still has a productive cough. No new concerns. Objective - Vital Signs Vital signs: Vital Signs Temp 96.2 F L 09/29/17 07:00 Pulse 64 09/29/17 07:07 Resp 16 09/29/17 07:07 BP 117/64 09/29/17 07:00 Pulse Ox 94 L 09/29/17 07:07 Intake & Output 09/28/17 09/29/17 09/29/17 18:59 06:59 18:59 Intake Total 400 Output Total 2500 1800 Balance -2500 -1400 Intake: Oral 400 Output: Urine 2500 1800 Uretheral (Owusu) 1000 Other: Voiding Method Indwelling Catheter # Voids 1 # Bowel Movements 0 - Constitutional General appearance: Present: cooperative, no acute distress - Respiratory Details: Lungs sounds coarse bilaterally with expiratory wheezes present. Respirations even, nonlabored. Currently on 1 L nasal cannula with oxygen saturation 91%. - Cardiovascular Details: S1, S2 present. Irregular rate and rhythm, controlled atrial fibrillation on telemetry. Palpable pulses peripherally. No edema present. - Gastrointestinal Gastrointestinal Comment(s): Abdomen soft, nontender, nondistended. Active bowel sounds 4 quadrants. Tolerating diet. - Genitourinary Genitourinary Comment(s): Owusu placed last night for retention, clear yellow urine return. - Integumentary Integumentary Comment(s): Skin warm, dry, pink with evidence of good perfusion. - Neurologic Neurologic: Present: CNII-XII intact - Musculoskeletal Musculoskeletal: Present: gait normal, strength equal bilaterally - Psychiatric Psychiatric: Present: A&O x's 3, appropriate affect, intact judgment & insight - Allied health notes Allied health notes reviewed: nursing - Labs CBC & Chem 7: 09/28/17 08:12 09/28/17 08:12 Labs: Abnormal Lab Results - Last 24 Hours (Table) 09/28/17 09/28/17 09/28/17 Range/Units 08:12 08:12 08:12 Neutrophils # 9.0 H (1.3-7.7) k/uL Lymphocytes # 0.8 L (1.0-4.8) k/uL PT 18.0 H (9.0-12.0) sec INR 2.0 H (<1.2) Carbon Dioxide 20 L (22-30) mmol/L Glucose 167 H (74-99) mg/dL POC Glucose (mg/dL) (75-99) mg/dL 09/28/17 09/28/17 09/28/17 Range/Units 11:50 16:41 20:32 Neutrophils # (1.3-7.7) k/uL Lymphocytes # (1.0-4.8) k/uL PT (9.0-12.0) sec INR (<1.2) Carbon Dioxide (22-30) mmol/L Glucose (74-99) mg/dL POC Glucose (mg/dL) 144 H 192 H 184 H (75-99) mg/dL 09/29/17 Range/Units 06:49 Neutrophils # (1.3-7.7) k/uL Lymphocytes # (1.0-4.8) k/uL PT (9.0-12.0) sec INR (<1.2) Carbon Dioxide (22-30) mmol/L Glucose (74-99) mg/dL POC Glucose (mg/dL) 168 H (75-99) mg/dL Microbiology - Last 24 Hours (Table) 09/27/17 16:00 Urine Culture - Final Urine,Catheterized 09/27/17 06:32 Blood Culture - Preliminary Blood No Growth after 24 hours Assessment and Plan (1) History of pneumonia Current Visit: Yes Status: Acute Code(s): Z87.01 - PERSONAL HISTORY OF PNEUMONIA (RECURRENT) SNOMED Code(s): 560059144 (2) COPD (chronic obstructive pulmonary disease) Current Visit: Yes Status: Chronic Code(s): J44.9 - CHRONIC OBSTRUCTIVE PULMONARY DISEASE, UNSPECIFIED SNOMED Code(s): 65731620 (3) Chronic a-fib Current Visit: Yes Status: Chronic Code(s): I48.2 - CHRONIC ATRIAL FIBRILLATION SNOMED Code(s): 610199166 (4) History of CVA (cerebrovascular accident) Current Visit: Yes Status: Chronic Code(s): Z86.73 - PRSNL HX OF TIA (TIA), AND CEREB INFRC W/O RESID DEFICITS SNOMED Code(s): 413374651 (5) Mitral valve stenosis, severe Current Visit: Yes Status: Chronic Code(s): I05.0 - RHEUMATIC MITRAL STENOSIS SNOMED Code(s): 84507161 (6) Nicotine dependence Current Visit: No Status: Resolved Code(s): F17.200 - NICOTINE DEPENDENCE, UNSPECIFIED, UNCOMPLICATED SNOMED Code(s): 11754218 (7) Noncompliance Current Visit: Yes Status: Chronic Code(s): Z91.19 - PATIENT'S NONCOMPLIANCE W OTH MEDICAL TREATMENT AND REGIMEN SNOMED Code(s): 7450805 Plan: 1. Continue amiodarone, digoxin, Lopressor, Lasix. 2. Antibiotics, steroids per pulmonology. 3. Medical comorbidities who managed by primary care service. 4. Wean O2 as tolerated. Encourage incentive spirometry use. 5. Increase activity, ambulate as tolerated. 6. Encourage smoking cessation. 7. Discussion had with the patient's daughter regarding need for dental clearance as patient's dentist office has not cleared her. Patient has appointment October 01, however she may still be in the hospital. Daughter Jovanna states she will make sure patient sees a dentist, gets clearance, and she will go with the patient to future physician appointments. 8. More recommendations as patient progresses. Time with Patient: Greater than 30
[2017-09-29 08:50] LABS: Basophils # (A) 0.1 k/uL (0-0.2); Basophils % (A) 0 %; Eosinophils % (A) 0 %; HCT 39.6 % (34.0-46.0); HGB 12.4 gm/dL (11.4-16.0); Hypochromasia Moderate; Lymphocytes # (A) 0.6 k/uL (1.0-4.8); Lymphocytes % (A) 4 %; MCH 29.9 pg (25.0-35.0); MCHC 31.4 g/dL (31.0-37.0); MCV 95.3 fL (80.0-100.0); Mean Platelet Volume 8.3; Monocytes # (A) 0.4 k/uL (0-1.0); Monocytes % (A) 3 %; Neutrophils # (A) 13.6 k/uL (1.3-7.7); Neutrophils % (A) 92 %; Platelet Count 258 k/uL (150-450); RBC 4.16 m/uL (3.80-5.40); RDW 15.7 % (11.5-15.5); WBC 14.9 k/uL (3.8-10.6)
[2017-09-29 08:54] LABS: INR 2.6 (<1.2); Prothrombin Time 23.1 sec (9.0-12.0)
[2017-09-29 09:11] LABS: Anion Gap 12 mmol/L; Blood Urea Nitrogen 17 mg/dL (7-17); Calcium 9.7 mg/dL (8.4-10.2); Carbon Dioxide 25 mmol/L (22-30); Chloride 102 mmol/L (98-107); Glucose 160 mg/dL (74-99); Potassium 4.2 mmol/L (3.5-5.1); Sodium 139 mmol/L (137-145)
--- NOTE | 2017-09-29 10:41 | PN ---
PROGRESS NOTE DATE OF SERVICE: 09/28/2017. I am covering for Dr. Egan. This 61-year-old woman who was admitted with COPD exacerbation also had significant mitral stenosis. The patient had significant history of noncompliance and the patient was seen by Cardiology, cardiothoracic surgery, as well as pulmonology. No chest pain. No palpitations. No fever. PHYSICAL EXAM: Alert and oriented x3. Pulse 80, blood pressure 115/63, respiration 20, temperature 97 degrees, pulse ox 92% on 1 L. HEENT: Conjunctivae normal. Oral mucosa moist. Neck is no jugular venous distention. No carotid bruit. No lymph node enlargement. Cardiovascular system: S1, S2 muffled. No S3, no S4. Respiratory: Breath sounds diminished in the bases. No rhonchi. No crackles. ABDOMEN: Soft, nontender. Legs are no edema. No swelling. Central nervous system: No focal deficits. LABS: INR is 2. Accu-Cheks are noted. ASSESSMENT: 1. Chronic obstructive pulmonary disease acute exacerbation with acute purulent tracheobronchitis. 2. History of congestive heart failure with chronic diastolic dysfunction. 3. Severe mitral stenosis. 4. History of nicotine dependence. 5. History of noncompliance. 6. History of persistent atrial fibrillation with rapid ventricular rate. 7. History of severe mitral regurgitation. 8. History of pulmonary hypertension. 9. History of cerebrovascular accident, transient ischemic attack. RECOMMENDATIONS AND DISCUSSION: Recommend to continue current medications, continue current management and symptomatic treatment. Otherwise discussed with cardiovascular surgery. Continue to monitor. Closely follow with Cardiology and pulmonology. The patient will require emergent surgery for mitral stenosis. Continue to follow with dental consultations. Further recommendations to follow. As discussed with the family previously. MMODL / IJN: [id number] /
[2017-09-29] MEDS: cefTRIAXone IN SWFI 1,000 MG/10 ML SYRINGE IVP SCH (11:11)
[2017-09-29 11:58] LABS: Glucose,Whole Blood 180 mg/dL (75-99)
--- NOTE | 2017-09-29 12:39 | P.PN ---
Subjective Patient resting in bed continues with cough and wheeze. at bedside continued. Patient had an evaluation by cardiac surgeon need clearance from dentist for on discussion regarding dental care and smoking sensation Objective - Vital Signs Vital signs: Vital Signs Temp 96.2 F L 09/29/17 07:00 Pulse 68 09/29/17 11:32 Resp 16 09/29/17 11:32 BP 117/64 09/29/17 07:00 Pulse Ox 94 L 09/29/17 07:07 Intake & Output 09/28/17 09/29/17 09/29/17 18:59 06:59 18:59 Intake Total 400 240 Output Total 2500 1800 1000 Balance -2500 -1400 -760 Intake: Oral 400 240 Output: Urine 2500 1800 1000 Uretheral ([place]u) 1000 Other: Voiding Method Indwelling Catheter Indwelling Catheter # Voids 1 # Bowel Movements 0 - Constitutional General appearance: Present: mild distress - EENT Eyes: Present: PERRLA Ears: bilateral: normal - Neck Neck: Present: normal ROM - Respiratory Respiratory: bilateral: wheezing - Cardiovascular Rhythm: irregularly irregular - Gastrointestinal General gastrointestinal: Present: soft - Integumentary Integumentary: Present: normal - Neurologic Neurologic: Present: CNII-XII intact - Musculoskeletal Musculoskeletal: Present: generalized weakness - Psychiatric Psychiatric: Present: A&O x's 3, appropriate affect - Labs CBC & Chem 7: 09/29/17 08:21 09/29/17 08:21 Labs: Abnormal Lab Results - Last 24 Hours (Table) 09/28/17 09/28/17 09/29/17 Range/Units 16:41 20:32 06:49 WBC (3.8-10.6) k/uL RDW (11.5-15.5) % Neutrophils # (1.3-7.7) k/uL Lymphocytes # (1.0-4.8) k/uL PT (9.0-12.0) sec INR (<1.2) Glucose (74-99) mg/dL POC Glucose (mg/dL) 192 H 184 H 168 H (75-99) mg/dL 09/29/17 09/29/17 09/29/17 Range/Units 08:21 08:21 08:21 WBC 14.9 H (3.8-10.6) k/uL RDW 15.7 H (11.5-15.5) % Neutrophils # 13.6 H (1.3-7.7) k/uL Lymphocytes # 0.6 L (1.0-4.8) k/uL PT 23.1 H (9.0-12.0) sec INR 2.6 H (<1.2) Glucose 160 H (74-99) mg/dL POC Glucose (mg/dL) (75-99) mg/dL 09/29/17 Range/Units 11:51 WBC (3.8-10.6) k/uL RDW (11.5-15.5) % Neutrophils # (1.3-7.7) k/uL Lymphocytes # (1.0-4.8) k/uL PT (9.0-12.0) sec INR (<1.2) Glucose (74-99) mg/dL POC Glucose (mg/dL) 180 H (75-99) mg/dL Microbiology - Last 24 Hours (Table) 09/27/17 06:32 Blood Culture - Preliminary Blood No Growth after 48 hours 09/27/17 16:00 Urine Culture - Final Urine,Catheterized - Imaging and Cardiology Chest x-ray: report reviewed Assessment and Plan Plan: Assessment COPD with acute exacerbation with acute purulent tracheobronchitis Congestive heart failure with chronic diastolic dysfunction Severe mitral stenosis Nicotine dependence Noncompliance with medications History of persistent atrial fibrillation with RVR Severe mitral regurgitation Pulmonary hypertension History of CVA/TIA with residual weakness Plan Continue consultation with cardiology, cardiac surgeon, and pulmonology Patient does have a date for dental visits Patient on Rocephin and Zithromax
--- NOTE | 2017-09-29 14:45 | P.PN ---
Subjective Progress Note Date: 09/29/16 Mrs. Kirkland is a pleasant 61-year-old female with past medical history significant for severe mitral stenosis s/p valvuloplasty (2012) , diastolic heart failure, COPD, chronic persistent atrial fibrillation on moth exterminator anti-coagulation with coumadin, severe pulmonary hypertension, CVA/TIA and mild non-obstructive coronary artery disease. She is awaiting mitral valve repair once she completes necessary dental repair. She follows with Dr. BORDIE Nichole as an outpatient. She has presented to the hospital with increased shortness of breath with exertion and cough. Upon arrival she was in atrial fibrillation with mildly elevated ventricular response. Beta tay has been adjusted per medical team by discontinuing toprol and ordering lopressor 25 mg BID. Heart rate has been much better controlled 60-80's. Lasix was not continued on admission for some reason and she had an episode of urinary retention yesterday which required straight cath of 800cc. She denies chest pain, palpitations, dizziness, nausea or vomiting. She states her next dental cleaning is scheduled for 10/01. EKG on arrival shows atrial fibrillation with non-specific ST changes may be secondary to fast rate, will repeat. Most recent echocardiogram 06/2017 revealed preserved LV function with severe mitral stenosis, mitral regurgitation, tricuspid regurgitation, interarterial closure device without evidence of shunt, mildly thickened aortic valve and severe pulmonary hypertension with RVSP 71.99 mmHg. 09/29/2017 Patient is seen today in follow-up from initial consultation. Heart continues in atrial fibrillation with controlled ventricular response. She is tolerating lopressor BID without incident. She continues to deny chest pain, palpitations, dizziness or syncope. She complains of increasing shortness of breath. Lungs sound worse today and she appears increasingly tired and weak. CO2 25. She has a carreno catheter in place secondary to urinary retention. INR therapeutic at 2.6. Objective - Vital Signs Vital signs: Vital Signs Temp 96.2 F L 09/29/17 07:00 Pulse 68 09/29/17 11:32 Resp 16 09/29/17 11:32 BP 117/64 09/29/17 07:00 Pulse Ox 94 L 09/29/17 07:07 Intake & Output 09/28/17 09/29/17 09/29/17 18:59 06:59 18:59 Intake Total 400 240 Output Total 2500 1800 1000 Balance -2500 -1400 -760 Intake: Oral 400 240 Output: Urine 2500 1800 1000 Uretheral ([place]) 1000 Other: Voiding Method Indwelling Catheter Indwelling Catheter # Voids 1 # Bowel Movements 0 - Exam Blood pressure 117/64 heart rate 60 afebrile NECK: Supple without JVD or thyromegaly. LUNGS: Respirations equal and unlabored. Expiratory wheezes with increased rhonchi throughout and bibasilar crackles. HEART: Irregular rate and rhythm with systolic murmur at the base and diastolic murmur at the apex. No rubs or gallops. S1 and S2 heard. EXTREMITIES: Normal range of motion, no edema. No clubbing or cyanosis. Peripheral pulses intact. - Labs CBC & Chem 7: 09/29/17 08:21 09/29/17 08:21 Labs: Abnormal Lab Results - Last 24 Hours (Table) 09/28/17 09/28/17 09/29/17 Range/Units 16:41 20:32 06:49 WBC (3.8-10.6) k/uL RDW (11.5-15.5) % Neutrophils # (1.3-7.7) k/uL Lymphocytes # (1.0-4.8) k/uL PT (9.0-12.0) sec INR (<1.2) Glucose (74-99) mg/dL POC Glucose (mg/dL) 192 H 184 H 168 H (75-99) mg/dL 09/29/17 09/29/17 09/29/17 Range/Units 08:21 08:21 08:21 WBC 14.9 H (3.8-10.6) k/uL RDW 15.7 H (11.5-15.5) % Neutrophils # 13.6 H (1.3-7.7) k/uL Lymphocytes # 0.6 L (1.0-4.8) k/uL PT 23.1 H (9.0-12.0) sec INR 2.6 H (<1.2) Glucose 160 H (74-99) mg/dL POC Glucose (mg/dL) (75-99) mg/dL 09/29/17 Range/Units 11:51 WBC (3.8-10.6) k/uL RDW (11.5-15.5) % Neutrophils # (1.3-7.7) k/uL Lymphocytes # (1.0-4.8) k/uL PT (9.0-12.0) sec INR (<1.2) Glucose (74-99) mg/dL POC Glucose (mg/dL) 180 H (75-99) mg/dL Microbiology - Last 24 Hours (Table) 09/27/17 06:32 Blood Culture - Preliminary Blood No Growth after 48 hours 09/27/17 16:00 Urine Culture - Final Urine,Catheterized Assessment and Plan Assessment: ASSESSMENT 1. Chronic persistent atrial fibrillation with poorly controlled ventricular response on long-term anticoagulation with Coumadin 2. Multi-valvular heart disease with severe mitral stenosis and regurgitation s /p valvuloplasty. Currently awaiting valve repair. 3. Severe pulmonary hypertension, RVSP 71.99 mmHg 4. Chronic stable non-obstructive coronary artery disease PLAN Continue with amiodarone, digoxin, Lasix and lopressor as previously ordered. Continue with daily PT/INR with pharmacy to dose coumadin as needed. Continue with medical management and surgical recommendations. We will see her as needed for the remainder of this admission. Please feel free to call with any questions or concerns. The above impression and plan of care have been discussed and directed by the signing physician. Sofía Hubbard, nurse practitioner, acting as a scribe for signing physician.
--- NOTE | 2017-09-29 14:48 | P.PN ---
Subjective Progress Note Date: 09/29/17 Principal diagnosis: Acute COPD exacerbation. Dyspnea, multifactorial, history of severe mitral stenosis, severe pulmonary hypertension, diastolic heart failure, COPD. 61-year-old female patient who is well-known to us. The patient is known to have COPD, mitral stenosis, chronic atrial fibrillation, severe pulmonary hypertension, was coming into the hospital because of worsening shortness of breath. The patient was being Complaint for valvular surgery and mitral valve replacement however based on her COPD and her comorbidities and her poor dental condition the surgery got delayed at this point. The patient has had multiple hospitalization for CHF, A. fib and complications of heart failure and COPD exacerbation. She came into the ED last night because of increased shortness of breath and she was mainly bronchospastic and wheezy during this current hospitalization. The BNP was mildly elevated. The patient's INR was subtherapeutic at 1.6. The chest x-ray was stable with COPD and mild cardiomegaly. The patient apparently had seen Dr. Haer and she was told that her teeth condition has been adequate at this point for any form of cardiac or valve surgery. On 09/28/2017 patient seen in follow-up on medical surgical floor. Denies any acute distress. She is currently resting comfortably in bed, no signs of discomfort, oral residue distress noted. Lung sounds are positive for faint wheezes, and crackles over posterior bases. Become short of breath with any activity. Continues to be hypoxemic, on room air her O2 sat is 85%. On 3 L she is up to 93%. Afebrile, blood pressure this morning is marginally low, 85/ 61. Patient is asymptomatic with that. Microbiology results have been reviewed , urine and blood culture show no growth. Today's lab work shows no evidence of leukocytosis, WBCs 10.2, hemoglobin is 13, INR is 2.0, B1 is 16, creatinine 0.64. Patient remains in A. fib with a controlled rate. Patient was seen in consultation by cardiology, who will be resuming her home dose oral Lasix, patient continues on amiodarone, digoxin and Lopressor for heart rate control. Cardiothoracic surgery has also seen patient in evaluation, patient is still in need of dental clearance. On 09/29/2017 patient seen in follow-up. She remains wheezy, with congested bronchospastic cough. There is some scattered rhonchi throughout the lung cuadra. Oxygen is currently on standby, with her O2 sat is 94%. She is afebrile, hemodynamically stable. Urine and blood cultures show no growth. She continues on IV Solu-Medrol, Robitussin Cough syrup, Rocephin and Zithromax , Symbicort, and DuoNeb nebulized treatments. Lab work was reviewed, WBC of 14.9, hemoglobin of 12.4, INR today is 2.6, no electrolyte abnormality, renal profile is within normal limits. Patient has been ambulating to the bathroom, tolerating it fairly well. Objective - Vital Signs Vital signs: Vital Signs Temp 96.2 F L 09/29/17 07:00 Pulse 68 09/29/17 11:32 Resp 16 09/29/17 11:32 BP 117/64 09/29/17 07:00 Pulse Ox 94 L 09/29/17 07:07 Intake & Output 09/28/17 09/29/17 09/29/17 18:59 06:59 18:59 Intake Total 400 240 Output Total 2500 1800 1000 Balance -2500 -1400 -760 Intake: Oral 400 240 Output: Urine 2500 1800 1000 Uretheral ([place]u) 1000 Other: Voiding Method Indwelling Catheter Indwelling Catheter # Voids 1 # Bowel Movements 0 - Exam GENERAL EXAM: Alert, active, comfortable in no apparent distress. HEAD: Normocephalic. EYES: Normal reaction of pupils, equal size. NOSE: Clear with pink turbinates. THROAT: No erythema or exudates. NECK: No masses, no JVD. CHEST: No chest wall deformity. LUNGS: Equal air entry with crackles in the posterior bases. Diminished.. There are diffuse expiratory wheezes throughout the lung cuadra bilaterally. CVS: Irregular S1 and S2 normal with an audible murmur, and a diastolic rumble and the patient's cardiac rhythm is irregular secondary his atrial fibrillation. ABDOMEN: No hepatosplenomegaly, normal bowel sounds, no guarding or rigidity. SPINE: No scoliosis or deformity SKIN: No rashes CENTRAL NERVOUS SYSTEM: No focal deficits, tone is normal in all 4 extremities. EXTREMITIES: There is trace peripheral edema. No clubbing, no cyanosis. Peripheral pulses are intact. - Labs CBC & Chem 7: 09/29/17 08:21 09/29/17 08:21 Labs: Abnormal Lab Results - Last 24 Hours (Table) 09/28/17 09/28/17 09/29/17 Range/Units 16:41 20:32 06:49 WBC (3.8-10.6) k/uL RDW (11.5-15.5) % Neutrophils # (1.3-7.7) k/uL Lymphocytes # (1.0-4.8) k/uL PT (9.0-12.0) sec INR (<1.2) Glucose (74-99) mg/dL POC Glucose (mg/dL) 192 H 184 H 168 H (75-99) mg/dL 09/29/17 09/29/17 09/29/17 Range/Units 08:21 08:21 08:21 WBC 14.9 H (3.8-10.6) k/uL RDW 15.7 H (11.5-15.5) % Neutrophils # 13.6 H (1.3-7.7) k/uL Lymphocytes # 0.6 L (1.0-4.8) k/uL PT 23.1 H (9.0-12.0) sec INR 2.6 H (<1.2) Glucose 160 H (74-99) mg/dL POC Glucose (mg/dL) (75-99) mg/dL 09/29/17 Range/Units 11:51 WBC (3.8-10.6) k/uL RDW (11.5-15.5) % Neutrophils # (1.3-7.7) k/uL Lymphocytes # (1.0-4.8) k/uL PT (9.0-12.0) sec INR (<1.2) Glucose (74-99) mg/dL POC Glucose (mg/dL) 180 H (75-99) mg/dL Microbiology - Last 24 Hours (Table) 09/27/17 06:32 Blood Culture - Preliminary Blood No Growth after 48 hours 09/27/17 16:00 Urine Culture - Final Urine,Catheterized Assessment and Plan Plan: Assessment 1 acute COPD exacerbation with secondary shortness of breath. The patient has chronic dyspnea and her shortness of breath is multifactorial knowing that she has also severe mitral stenosis, severe pulmonary hypertension and diastolic heart failure in addition to her COPD. Nevertheless, the acute exacerbating factor for now as the COPD exacerbation. CHF seems to be currently inactive and stable. 2 CHF with diastolic dysfunction 3 severe mitral stenosis with previous valvuloplasty. The patient was being contemplated for mitral valve replacement. She has severe pulmonary hypertension with a PA pressure estimated to be in the mid 70s. 4 chronic atrial fibrillation, rate is controlled and the patient is anticoagulated with a subtherapeutic PT/INR 5 chronic smoker and the patient claims that she hasn't smoked for the past 2 weeks 6 CVA/TIA, history of 7 severe pulmonary hypertension with a right ventricular systolic pressure of 71.9 mmHg 8 poor dental condition and the patient has been given clearance by dental surgery 9 hypertension 10 history of ASD closure Plan She still continues with diffuse wheezing, chest congestion and cough. Continue nebulized treatments, continue IV Solu-Medrol at 60 mg every 6 hours. Empiric antibiotic coverage in the form of Rocephin and Zithromax. Her INR is therapeutic today, 2.6, she remains in A. fib, with a controlled rate. Cardiology and cardiothoracic surgery input were noted and appreciated. Patient is still in need of dental clearance before proceeding with valve surgery, and still having the acute exacerbation of COPD. We will have to optimize her pulmonary condition before considering any surgery. I performed a history & physical examination of the patient and discussed their management with my nurse practitioner, Noemi Donald. I reviewed the nurse practitioner's note and agree with the documented findings and plan of care. Lung sounds are positive for diffuse wheezes and bibasilar crackles. The findings and the impression was discussed with the patient. I attest to the documentation by the nurse practitioner. Time with Patient: Less than 30
[2017-09-29 17:39] LABS: Glucose,Whole Blood 175 mg/dL (75-99)
[2017-09-29 21:01] LABS: Glucose,Whole Blood 214 mg/dL (75-99)
[2017-09-29] MEDS: WARFARIN 1 MG TAB PO SCH (21:08)
[2017-09-29] MEDS: ESCITALOPRAM 10 MG TAB PO SCH (21:08)
[2017-09-30] MEDS: guaiFENesin SYRUP 100MG/5ML 200 MG/10 ML CUP PO PRN (00:19)
[2017-09-30] MEDS: oxyCODONE-APAP 5-325MG 1 EACH TAB PO PRN ×3 (04:42→23:51)
[2017-09-30] MEDS: clonazePAM 0.5 MG TAB PO PRN ×2 (04:43→20:29)
[2017-09-30] MEDS: methylPREDNISolone SOD SUCCI 125 MG/2 ML VIAL IV SCH ×4 (06:02→23:51)
[2017-09-30] MEDS: SYMBICORT 160-4.5 MCG INHALER INHALATION SCH ×2 (07:14→19:46)
[2017-09-30] MEDS: IPRATROPIUM-ALBUTEROL 3 ML NEB INHALATION SCH ×4 (07:14→19:46)
[2017-09-30 07:31] LABS: Glucose,Whole Blood 136 mg/dL (75-99)
[2017-09-30] MEDS: OXYCONTIN PO SCH (07:34)
[2017-09-30] MEDS: AZITHROMYCIN 500 MG TAB PO SCH (08:08)
[2017-09-30] MEDS: AMIODARONE 200 MG TAB PO SCH ×2 (08:08→20:29)
[2017-09-30] MEDS: DIGOXIN 125 MCG TAB PO SCH (08:08)
[2017-09-30] MEDS: METOPROLOL TARTRATE 25 MG TAB PO SCH ×2 (08:08→20:29)
[2017-09-30] MEDS: FUROSEMIDE 40 MG TAB PO SCH (08:08)
[2017-09-30] MEDS: INSULIN ASPART 100 UNIT/ML 1 ML 10 ML VIAL SQ SCH ×4 (08:08→21:42)
[2017-09-30] MEDS: PANTOPRAZOLE 40 MG TABLET PO SCH (08:08)
[2017-09-30] MEDS: LORATADINE 10 MG TAB PO SCH (08:08)
[2017-09-30] MEDS: NICOTINE 21MG/24HR PATCH TRANSDERM SCH (08:08)
[2017-09-30 08:32] LABS: INR 2.9 (<1.2); Prothrombin Time 25.7 sec (9.0-12.0)
[2017-09-30 08:44] LABS: Anion Gap 11 mmol/L; Basophils # (A) 0.1 k/uL (0-0.2); Basophils % (A) 0 %; Blood Urea Nitrogen 19 mg/dL (7-17); Carbon Dioxide 31 mmol/L (22-30); Chloride 99 mmol/L (98-107); Eosinophils % (A) 0 %; Glucose 129 mg/dL (74-99); HCT 42.1 % (34.0-46.0); HGB 13.2 gm/dL (11.4-16.0); Hypochromasia Slight; Lymphocytes # (A) 0.8 k/uL (1.0-4.8); Lymphocytes % (A) 6 %; MCH 30.2 pg (25.0-35.0); MCHC 31.4 g/dL (31.0-37.0); MCV 96.4 fL (80.0-100.0); Mean Platelet Volume 7.9; Monocytes # (A) 0.5 k/uL (0-1.0); Monocytes % (A) 3 %; Neutrophils # (A) 11.7 k/uL (1.3-7.7); Neutrophils % (A) 88 %; Platelet Count 282 k/uL (150-450); Poikilocytosis Slight; Potassium 4.2 mmol/L (3.5-5.1); RBC 4.37 m/uL (3.80-5.40); RDW 14.2 % (11.5-15.5); Sodium 141 mmol/L (137-145); WBC 13.4 k/uL (3.8-10.6)
[2017-09-30 08:45] LABS: Calcium 9.8 mg/dL (8.4-10.2)
[2017-09-30] MEDS: cefTRIAXone IN SWFI 1,000 MG/10 ML SYRINGE IVP SCH (11:18)
[2017-09-30 11:54] LABS: Glucose,Whole Blood 224 mg/dL (75-99)
--- NOTE | 2017-09-30 12:08 | P.PN ---
Subjective Principal diagnosis: Patient resting in bed continues with cough. Continued teaching again regarding smoking cessation and dental work. Patient needs valve repair for mitral stenosis Objective - Vital Signs Vital signs: Vital Signs Temp 96.7 F L 09/30/17 07:00 Pulse 74 09/30/17 11:32 Resp 18 09/30/17 07:00 BP 129/78 09/30/17 07:00 Pulse Ox 93 L 09/30/17 07:00 Intake & Output 09/29/17 09/30/17 09/30/17 18:59 06:59 18:59 Intake Total 240 500 Output Total 2150 1200 Balance -1910 -700 Intake: Oral 240 500 Output: Urine 2150 1200 Other: Voiding Method Indwelling Catheter Indwelling Catheter Indwelling Catheter # Bowel Movements 0 - Constitutional General appearance: Present: mild distress - EENT Eyes: Present: PERRLA Ears: bilateral: normal - Neck Neck: Present: normal ROM - Respiratory Respiratory: bilateral: rhonchi, wheezing - Cardiovascular Rhythm: irregularly irregular - Gastrointestinal General gastrointestinal: Present: soft - Genitourinary Genitourinary Comment(s): Patient has indwelling catheter secondary to urinary retention - Integumentary Integumentary: Present: normal - Neurologic Neurologic: Present: CNII-XII intact - Musculoskeletal Musculoskeletal: Present: left sided weakness - Psychiatric Psychiatric: Present: A&O x's 3, appropriate affect, intact judgment & insight - Labs CBC & Chem 7: 09/30/17 07:34 09/30/17 07:34 Labs: Abnormal Lab Results - Last 24 Hours (Table) 09/29/17 09/29/17 09/30/17 Range/Units 17:06 20:48 07:29 WBC (3.8-10.6) k/uL Neutrophils # (1.3-7.7) k/uL Lymphocytes # (1.0-4.8) k/uL PT (9.0-12.0) sec INR (<1.2) Carbon Dioxide (22-30) mmol/L BUN (7-17) mg/dL Glucose (74-99) mg/dL POC Glucose (mg/dL) 175 H 214 H 136 H (75-99) mg/dL 09/30/17 09/30/17 09/30/17 Range/Units 07:34 07:34 07:34 WBC 13.4 H (3.8-10.6) k/uL Neutrophils # 11.7 H (1.3-7.7) k/uL Lymphocytes # 0.8 L (1.0-4.8) k/uL PT 25.7 H (9.0-12.0) sec INR 2.9 H (<1.2) Carbon Dioxide 31 H (22-30) mmol/L BUN 19 H (7-17) mg/dL Glucose 129 H (74-99) mg/dL POC Glucose (mg/dL) (75-99) mg/dL 09/30/17 Range/Units 11:49 WBC (3.8-10.6) k/uL Neutrophils # (1.3-7.7) k/uL Lymphocytes # (1.0-4.8) k/uL PT (9.0-12.0) sec INR (<1.2) Carbon Dioxide (22-30) mmol/L BUN (7-17) mg/dL Glucose (74-99) mg/dL POC Glucose (mg/dL) 224 H (75-99) mg/dL Microbiology - Last 24 Hours (Table) 09/27/17 06:32 Blood Culture - Preliminary Blood No Growth after 72 hours Assessment and Plan Plan: Assessment Chronic obstructive pulmonary disease acute exacerbation with acute purulent tracheobronchitis Urinary retention with Ow[place]u catheter History of congestive heart failure with chronic diastolic dysfunction Severe mitral stenosis Nicotine dependence noncompliance Persistent atrial flutter with RVR Severe mitral regurgitation Pulmonary hypertension History of CVA/TIA with left-sided weakness Plan continue consultation with pulmonology cardiac surgeon and cardiology Patient on Zithromax and Rocephin
--- NOTE | 2017-09-30 12:29 | P.PN ---
Subjective Progress Note Date: 09/30/17 Principal diagnosis: Acute COPD exacerbation. Dyspnea, multifactorial, history of severe mitral stenosis, severe pulmonary hypertension, diastolic heart failure, COPD. 61-year-old female patient who is well-known to us. The patient is known to have COPD, mitral stenosis, chronic atrial fibrillation, severe pulmonary hypertension, was coming into the hospital because of worsening shortness of breath. The patient was being Complaint for valvular surgery and mitral valve replacement however based on her COPD and her comorbidities and her poor dental condition the surgery got delayed at this point. The patient has had multiple hospitalization for CHF, A. fib and complications of heart failure and COPD exacerbation. She came into the ED last night because of increased shortness of breath and she was mainly bronchospastic and wheezy during this current hospitalization. The BNP was mildly elevated. The patient's INR was subtherapeutic at 1.6. The chest x-ray was stable with COPD and mild cardiomegaly. The patient apparently had seen Dr. Hare and she was told that her teeth condition has been adequate at this point for any form of cardiac or valve surgery. On 09/28/2017 patient seen in follow-up on medical surgical floor. Denies any acute distress. She is currently resting comfortably in bed, no signs of discomfort, oral residue distress noted. Lung sounds are positive for faint wheezes, and crackles over posterior bases. Become short of breath with any activity. Continues to be hypoxemic, on room air her O2 sat is 85%. On 3 L she is up to 93%. Afebrile, blood pressure this morning is marginally low, 85/ 61. Patient is asymptomatic with that. Microbiology results have been reviewed , urine and blood culture show no growth. Today's lab work shows no evidence of leukocytosis, WBCs 10.2, hemoglobin is 13, INR is 2.0, B1 is 16, creatinine 0.64. Patient remains in A. fib with a controlled rate. Patient was seen in consultation by cardiology, who will be resuming her home dose oral Lasix, patient continues on amiodarone, digoxin and Lopressor for heart rate control. Cardiothoracic surgery has also seen patient in evaluation, patient is still in need of dental clearance. On 09/29/2017 patient seen in follow-up. She remains wheezy, with congested bronchospastic cough. There is some scattered rhonchi throughout the lung cuadra. Oxygen is currently on standby, with her O2 sat is 94%. She is afebrile, hemodynamically stable. Urine and blood cultures show no growth. She continues on IV Solu-Medrol, Robitussin Cough syrup, Rocephin and Zithromax , Symbicort, and DuoNeb nebulized treatments. Lab work was reviewed, WBC of 14.9, hemoglobin of 12.4, INR today is 2.6, no electrolyte abnormality, renal profile is within normal limits. Patient has been ambulating to the bathroom, tolerating it fairly well. On 09/30/2017 patient seen in follow-up. She is resting quietly in bed, in no acute distress. Lung sounds still remain very wheezy, still has the loose congested cough. she has been afebrile. She denies any acute distress. She has been ambulating to the bathroom, tolerating activity well. She was advised to increase her activity further, walk in the hallway. Urine and blood cultures show no growth. today's lab work reviewed, WBC of 13.4, INR is 2.9, sodium is 141, potassium is 4.2, chloride is 99, carbon dioxide is 31, BUN is 19, creatinine is 0.81, no new chest x-rays. Patient would like to go home today, she states she has a dental appointment tomorrow. She was advised to get up and and ambulate, we will follow-up with her through the day and decide whether she can be safely discharged home today. Objective - Vital Signs Vital signs: Vital Signs Temp 96.7 F L 09/30/17 07:00 Pulse 74 09/30/17 11:32 Resp 18 09/30/17 07:00 BP 129/78 09/30/17 07:00 Pulse Ox 93 L 09/30/17 07:00 Intake & Output 09/29/17 09/30/17 09/30/17 18:59 06:59 18:59 Intake Total 240 500 Output Total 2150 1200 Balance -1910 -700 Intake: Oral 240 500 Output: Urine 2150 1200 Other: Voiding Method Indwelling Catheter Indwelling Catheter Indwelling Catheter # Bowel Movements 0 - Exam GENERAL EXAM: Alert, active, comfortable in no apparent distress. HEAD: Normocephalic. EYES: Normal reaction of pupils, equal size. NOSE: Clear with pink turbinates. THROAT: No erythema or exudates. NECK: No masses, no JVD. CHEST: No chest wall deformity. LUNGS: Equal air entry with crackles in the posterior bases. Diminished.. There are diffuse expiratory wheezes throughout the lung cuadra bilaterally. CVS: Irregular S1 and S2 normal with an audible murmur, and a diastolic rumble and the patient's cardiac rhythm is irregular secondary his atrial fibrillation. ABDOMEN: No hepatosplenomegaly, normal bowel sounds, no guarding or rigidity. SPINE: No scoliosis or deformity SKIN: No rashes CENTRAL NERVOUS SYSTEM: No focal deficits, tone is normal in all 4 extremities. EXTREMITIES: There is trace peripheral edema. No clubbing, no cyanosis. Peripheral pulses are intact. - Labs CBC & Chem 7: 09/30/17 07:34 09/30/17 07:34 Labs: Abnormal Lab Results - Last 24 Hours (Table) 09/29/17 09/29/17 09/30/17 Range/Units 17:06 20:48 07:29 WBC (3.8-10.6) k/uL Neutrophils # (1.3-7.7) k/uL Lymphocytes # (1.0-4.8) k/uL PT (9.0-12.0) sec INR (<1.2) Carbon Dioxide (22-30) mmol/L BUN (7-17) mg/dL Glucose (74-99) mg/dL POC Glucose (mg/dL) 175 H 214 H 136 H (75-99) mg/dL 09/30/17 09/30/17 09/30/17 Range/Units 07:34 07:34 07:34 WBC 13.4 H (3.8-10.6) k/uL Neutrophils # 11.7 H (1.3-7.7) k/uL Lymphocytes # 0.8 L (1.0-4.8) k/uL PT 25.7 H (9.0-12.0) sec INR 2.9 H (<1.2) Carbon Dioxide 31 H (22-30) mmol/L BUN 19 H (7-17) mg/dL Glucose 129 H (74-99) mg/dL POC Glucose (mg/dL) (75-99) mg/dL 09/30/17 Range/Units 11:49 WBC (3.8-10.6) k/uL Neutrophils # (1.3-7.7) k/uL Lymphocytes # (1.0-4.8) k/uL PT (9.0-12.0) sec INR (<1.2) Carbon Dioxide (22-30) mmol/L BUN (7-17) mg/dL Glucose (74-99) mg/dL POC Glucose (mg/dL) 224 H (75-99) mg/dL Microbiology - Last 24 Hours (Table) 09/27/17 06:32 Blood Culture - Preliminary Blood No Growth after 72 hours Assessment and Plan Plan: Assessment 1 acute COPD exacerbation with secondary shortness of breath. The patient has chronic dyspnea and her shortness of breath is multifactorial knowing that she has also severe mitral stenosis, severe pulmonary hypertension and diastolic heart failure in addition to her COPD. Nevertheless, the acute exacerbating factor for now as the COPD exacerbation. CHF seems to be currently inactive and stable. 2 CHF with diastolic dysfunction 3 severe mitral stenosis with previous valvuloplasty. The patient was being contemplated for mitral valve replacement. She has severe pulmonary hypertension with a PA pressure estimated to be in the mid 70s. 4 chronic atrial fibrillation, rate is controlled and the patient is anticoagulated with a subtherapeutic PT/INR 5 chronic smoker and the patient claims that she hasn't smoked for the past 2 weeks 6 CVA/TIA, history of 7 severe pulmonary hypertension with a right ventricular systolic pressure of 71.9 mmHg 8 poor dental condition and the patient has been given clearance by dental surgery 9 hypertension 10 history of ASD closure Plan Patient continues to sound very wheezy, still has the congestive nonproductive cough. She was advised to increase her activity through the day today, and monitor how she tolerates her activity as well as her level of dyspnea with it. Continue nebulized treatments, continue IV Solu-Medrol at 60 mg every 6 hours. continue same medical treatment. Patient would like to go home today, will follow up with her through the day to see if she can be safely discharged home today. Patient is still in need of dental clearance, and optimization of her pulmonary status before proceeding with surgery. I performed a history & physical examination of the patient and discussed their management with my nurse practitioner, Noemi Donald. I reviewed the nurse practitioner's note and agree with the documented findings and plan of care. Lung sounds are positive for diffuse wheezes. The findings and the impression was discussed with the patient. I attest to the documentation by the nurse practitioner. Time with Patient: Less than 30
[2017-09-30 17:24] LABS: Glucose,Whole Blood 135 mg/dL (75-99)
[2017-09-30] MEDS: SENNOSIDES-DOCUSATE SODIUM 1 EACH TAB PO SCH (20:28)
[2017-09-30] MEDS: ESCITALOPRAM 10 MG TAB PO SCH (20:29)
[2017-09-30] MEDS: TEMAZEPAM 30 MG CAP PO SCH (20:29)
[2017-09-30] MEDS: WARFARIN 1 MG TAB PO SCH (20:29)
[2017-09-30 20:56] LABS: Glucose,Whole Blood 204 mg/dL (75-99)
[2017-10-01] MEDS: oxyCODONE-APAP 5-325MG 1 EACH TAB PO PRN ×2 (05:05→17:09)
[2017-10-01] MEDS: methylPREDNISolone SOD SUCCI 125 MG/2 ML VIAL IV SCH ×3 (05:32→17:08)
[2017-10-01] MEDS: IPRATROPIUM-ALBUTEROL 3 ML NEB INHALATION SCH ×4 (07:31→20:16)
[2017-10-01] MEDS: SYMBICORT 160-4.5 MCG INHALER INHALATION SCH ×2 (07:31→20:15)
[2017-10-01 07:33] LABS: Glucose,Whole Blood 163 mg/dL (75-99)
[2017-10-01] MEDS: AMIODARONE 200 MG TAB PO SCH ×2 (07:39→21:09)
[2017-10-01] MEDS: PANTOPRAZOLE 40 MG TABLET PO SCH (07:39)
[2017-10-01] MEDS: INSULIN ASPART 100 UNIT/ML 1 ML 10 ML VIAL SQ SCH ×4 (07:39→21:25)
[2017-10-01] MEDS: METOPROLOL TARTRATE 25 MG TAB PO SCH ×2 (07:40→21:09)
[2017-10-01] MEDS: FUROSEMIDE 40 MG TAB PO SCH (07:40)
[2017-10-01] MEDS: LORATADINE 10 MG TAB PO SCH (07:40)
[2017-10-01] MEDS: DIGOXIN 125 MCG TAB PO SCH (07:40)
[2017-10-01] MEDS: AZITHROMYCIN 500 MG TAB PO SCH (07:40)
[2017-10-01] MEDS: NICOTINE 21MG/24HR PATCH TRANSDERM SCH (07:41)
[2017-10-01] MEDS: OXYCONTIN PO SCH (07:41)
[2017-10-01] MEDS: SENNOSIDES-DOCUSATE SODIUM 1 EACH TAB PO SCH ×2 (07:42→21:09)
[2017-10-01] MEDS: clonazePAM 0.5 MG TAB PO PRN (07:42)
[2017-10-01 09:29] LABS: Basophils # (A) 0.1 k/uL (0-0.2); Basophils % (A) 1 %; Eosinophils % (A) 0 %; HCT 41.9 % (34.0-46.0); HGB 13.3 gm/dL (11.4-16.0); Hypochromasia Slight; Lymphocytes # (A) 0.8 k/uL (1.0-4.8); Lymphocytes % (A) 7 %; MCH 29.9 pg (25.0-35.0); MCHC 31.7 g/dL (31.0-37.0); MCV 94.3 fL (80.0-100.0); Mean Platelet Volume 7.8; Monocytes # (A) 0.5 k/uL (0-1.0); Monocytes % (A) 4 %; Neutrophils # (A) 10.6 k/uL (1.3-7.7); Neutrophils % (A) 86 %; Platelet Count 279 k/uL (150-450); Poikilocytosis Slight; RBC 4.44 m/uL (3.80-5.40); RDW 14.2 % (11.5-15.5); WBC 12.2 k/uL (3.8-10.6)
[2017-10-01 09:34] LABS: INR 2.7 (<1.2); Prothrombin Time 24.3 sec (9.0-12.0)
[2017-10-01 09:43] LABS: Anion Gap 16 mmol/L; Blood Urea Nitrogen 23 mg/dL (7-17); Calcium 9.7 mg/dL (8.4-10.2); Carbon Dioxide 27 mmol/L (22-30); Chloride 97 mmol/L (98-107); Glucose 180 mg/dL (74-99); Potassium 3.6 mmol/L (3.5-5.1); Sodium 140 mmol/L (137-145)
--- NOTE | 2017-10-01 10:07 | P.PN ---
Subjective Progress Note Date: 10/01/17 Principal diagnosis: Severe mitral valve stenosis. 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 Patient's currently sitting up in bed in no acute distress. Denies chest pain, shortness of breath. No new concerns. States her daughter has rescheduled her dental appointment. Objective - Vital Signs Vital signs: Vital Signs Temp 96.9 F L 10/01/17 07:00 Pulse 72 10/01/17 07:41 Resp 18 10/01/17 07:00 BP 141/89 10/01/17 07:00 Pulse Ox 93 L 10/01/17 07:00 Intake & Output 09/30/17 10/01/17 10/01/17 18:59 06:59 18:59 Output Total 1999 650 Balance -1999 -650 Weight 66.678 kg Output: Urine 1999 650 Other: Voiding Method Indwelling Catheter Indwelling Catheter Indwelling Catheter # Bowel Movements 1 - Constitutional General appearance: Present: cooperative, no acute distress - Respiratory Details: Sounds coarse bilaterally with expiratory wheezes present. Respirations even, nonlabored. Still has wet sounding cough. Currently on room air with oxygen saturation 93%. - Cardiovascular Details: S1, S2 present. Regular rate and rhythm. Palpable peripheral pulses bilaterally. No edema present. - Gastrointestinal Gastrointestinal Comment(s): Abdomen soft, nontender, nondistended. Active bowel sounds 4 quadrants. Tolerating diet. - Genitourinary Genitourinary Comment(s): Owusu present draining clear, yellow urine. - Integumentary Integumentary Comment(s): Skin warm, pink, dry, with evidence of good perfusion. - Neurologic Neurologic: Present: CNII-XII intact - Musculoskeletal Musculoskeletal: Present: gait normal, strength equal bilaterally - Psychiatric Psychiatric: Present: A&O x's 3, appropriate affect, intact judgment & insight - Allied health notes Allied health notes reviewed: nursing - Labs CBC & Chem 7: 10/01/17 08:33 10/01/17 08:33 Labs: Abnormal Lab Results - Last 24 Hours (Table) 09/30/17 09/30/17 09/30/17 Range/Units 11:49 17:17 20:52 WBC (3.8-10.6) k/uL Neutrophils # (1.3-7.7) k/uL Lymphocytes # (1.0-4.8) k/uL PT (9.0-12.0) sec INR (<1.2) Chloride (98-107) mmol/L BUN (7-17) mg/dL Glucose (74-99) mg/dL POC Glucose (mg/dL) 224 H 135 H 204 H (75-99) mg/dL 10/01/17 10/01/17 10/01/17 Range/Units 06:48 08:33 08:33 WBC 12.2 H (3.8-10.6) k/uL Neutrophils # 10.6 H (1.3-7.7) k/uL Lymphocytes # 0.8 L (1.0-4.8) k/uL PT 24.3 H (9.0-12.0) sec INR 2.7 H (<1.2) Chloride (98-107) mmol/L BUN (7-17) mg/dL Glucose (74-99) mg/dL POC Glucose (mg/dL) 163 H (75-99) mg/dL 10/01/17 Range/Units 08:33 WBC (3.8-10.6) k/uL Neutrophils # (1.3-7.7) k/uL Lymphocytes # (1.0-4.8) k/uL PT (9.0-12.0) sec INR (<1.2) Chloride 97 L (98-107) mmol/L BUN 23 H (7-17) mg/dL Glucose 180 H (74-99) mg/dL POC Glucose (mg/dL) (75-99) mg/dL Microbiology - Last 24 Hours (Table) 09/27/17 06:32 Blood Culture - Preliminary Blood No Growth after 96 hours Assessment and Plan (1) History of pneumonia Current Visit: Yes Status: Acute Code(s): Z87.01 - PERSONAL HISTORY OF PNEUMONIA (RECURRENT) SNOMED Code(s): 036791957 (2) COPD (chronic obstructive pulmonary disease) Current Visit: Yes Status: Chronic Code(s): J44.9 - CHRONIC OBSTRUCTIVE PULMONARY DISEASE, UNSPECIFIED SNOMED Code(s): 88451581 (3) Chronic a-fib Current Visit: Yes Status: Chronic Code(s): I48.2 - CHRONIC ATRIAL FIBRILLATION SNOMED Code(s): 611668384 (4) History of CVA (cerebrovascular accident) Current Visit: Yes Status: Chronic Code(s): Z86.73 - PRSNL HX OF TIA (TIA), AND CEREB INFRC W/O RESID DEFICITS SNOMED Code(s): 435781918 (5) Mitral valve stenosis, severe Current Visit: Yes Status: Chronic Code(s): I05.0 - RHEUMATIC MITRAL STENOSIS SNOMED Code(s): 87988766 (6) Nicotine dependence Current Visit: No Status: Resolved Code(s): F17.200 - NICOTINE DEPENDENCE, UNSPECIFIED, UNCOMPLICATED SNOMED Code(s): 12983812 (7) Noncompliance Current Visit: Yes Status: Chronic Code(s): Z91.19 - PATIENT'S NONCOMPLIANCE W OTH MEDICAL TREATMENT AND REGIMEN SNOMED Code(s): 9975594 Plan: 1. Continue amiodarone, digoxin, Lopressor, Lasix. 2. Antibiotics, steroids per pulmonology. 3. Medical comorbidities who managed by primary care service. 4. Encourage incentive spirometry use. 5. Increase activity, ambulate as tolerated. 6. Encourage smoking cessation. 7. Discussion had with the patient's daughter regarding need for dental clearance as patient's dentist office has not cleared her. Patient had appointment for today, however since she is still in the hospital her daughter remade the appointment. Daughter Jovanna states she will make sure patient sees a dentist, gets clearance, and she will go with the patient to future physician appointments. 8. More recommendations as patient progresses. Time with Patient: Greater than 30
--- NOTE | 2017-10-01 11:19 | P.PN ---
Subjective Principal diagnosis: Patient resting in bed. Lethargic easily arousable. Continues with expiratory wheeze bilateral Objective - Vital Signs Vital signs: Vital Signs Temp 96.9 F L 10/01/17 07:00 Pulse 66 10/01/17 11:05 Resp 18 10/01/17 07:00 BP 141/89 10/01/17 07:00 Pulse Ox 93 L 10/01/17 07:00 Intake & Output 09/30/17 10/01/17 10/01/17 18:59 06:59 18:59 Output Total 1999 650 Balance -1999 -650 Weight 66.678 kg Output: Urine 1999 650 Other: Voiding Method Indwelling Catheter Indwelling Catheter Indwelling Catheter # Bowel Movements 1 - Constitutional General appearance: Present: mild distress - EENT Eyes: Present: PERRLA Ears: bilateral: normal - Neck Neck: Present: normal ROM - Respiratory Respiratory: bilateral: wheezing - Cardiovascular Rhythm: irregularly irregular - Gastrointestinal General gastrointestinal: Present: soft - Integumentary Integumentary: Present: normal - Neurologic Neurologic: Present: CNII-XII intact - Musculoskeletal Musculoskeletal: Present: left sided weakness - Psychiatric Psychiatric: Present: A&O x's 3, appropriate affect, intact judgment & insight - Labs CBC & Chem 7: 10/01/17 08:33 10/01/17 08:33 Labs: Abnormal Lab Results - Last 24 Hours (Table) 09/30/17 09/30/17 09/30/17 Range/Units 11:49 17:17 20:52 WBC (3.8-10.6) k/uL Neutrophils # (1.3-7.7) k/uL Lymphocytes # (1.0-4.8) k/uL PT (9.0-12.0) sec INR (<1.2) Chloride (98-107) mmol/L BUN (7-17) mg/dL Glucose (74-99) mg/dL POC Glucose (mg/dL) 224 H 135 H 204 H (75-99) mg/dL 10/01/17 10/01/17 10/01/17 Range/Units 06:48 08:33 08:33 WBC 12.2 H (3.8-10.6) k/uL Neutrophils # 10.6 H (1.3-7.7) k/uL Lymphocytes # 0.8 L (1.0-4.8) k/uL PT 24.3 H (9.0-12.0) sec INR 2.7 H (<1.2) Chloride (98-107) mmol/L BUN (7-17) mg/dL Glucose (74-99) mg/dL POC Glucose (mg/dL) 163 H (75-99) mg/dL 10/01/17 Range/Units 08:33 WBC (3.8-10.6) k/uL Neutrophils # (1.3-7.7) k/uL Lymphocytes # (1.0-4.8) k/uL PT (9.0-12.0) sec INR (<1.2) Chloride 97 L (98-107) mmol/L BUN 23 H (7-17) mg/dL Glucose 180 H (74-99) mg/dL POC Glucose (mg/dL) (75-99) mg/dL Microbiology - Last 24 Hours (Table) 09/27/17 06:32 Blood Culture - Preliminary Blood No Growth after 96 hours Assessment and Plan Plan: Assessment COPD acute exacerbation with acute purulent tracheobronchitis Urinary retention with Owusu History of congestive heart failure with chronic diastolic dysfunction Severe mitral stenosis Severe pain mitral regurgitation Pulmonary hypertension Nicotine dependence History of noncompliance with medication Persistent atrial fibrillation with RVR History of CVA with left-sided weakness Plan Hopeful dental clearance for surgery soon to daughter is arranging appointments Continue consultation with pulmonology cardiac surgeon and cardiology Patient continues on Rocephin and Zithromax hopeful discharge soon
[2017-10-01] MEDS: cefTRIAXone IN SWFI 1,000 MG/10 ML SYRINGE IVP SCH (11:30)
[2017-10-01 11:56] LABS: Glucose,Whole Blood 188 mg/dL (75-99)
[2017-10-01] MEDS ORDERED: FUROSEMIDE 10 MG/ML 4 ML VIAL IV STA (12:27)
--- NOTE | 2017-10-01 13:12 | XR ---
EXAMINATION TYPE: XR chest 2V DATE OF EXAM: 10/01/2017 COMPARISON: Chest x-ray September 27, 2017 and older x-rays. CTA chest July 26, 2017 HISTORY: Wheezing and shortness of breath. TECHNIQUE: Frontal and lateral views of the chest are obtained. FINDINGS: There is chronic parenchymal change without suspicious focal air space opacity, pleural ef fusion, or pneumothorax seen. The cardiac silhouette size remains enlarged. There is new central vas cular congestion seen. There is bilateral hilar prominence likely reflecting product of underlying pu lmonary artery hypertension. The osseous structures are intact. IMPRESSION: Chronic emphysematous change and cardiomegaly with developing central vascular congestion felt present, correlate for CHF exacerbation.
--- NOTE | 2017-10-01 14:02 | P.PN ---
Subjective Progress Note Date: 10/01/17 Principal diagnosis: Acute COPD exacerbation. Dyspnea, multifactorial, history of severe mitral stenosis, severe pulmonary hypertension, diastolic heart failure, COPD. 61-year-old female patient who is well-known to us. The patient is known to have COPD, mitral stenosis, chronic atrial fibrillation, severe pulmonary hypertension, was coming into the hospital because of worsening shortness of breath. The patient was being Complaint for valvular surgery and mitral valve replacement however based on her COPD and her comorbidities and her poor dental condition the surgery got delayed at this point. The patient has had multiple hospitalization for CHF, A. fib and complications of heart failure and COPD exacerbation. She came into the ED last night because of increased shortness of breath and she was mainly bronchospastic and wheezy during this current hospitalization. The BNP was mildly elevated. The patient's INR was subtherapeutic at 1.6. The chest x-ray was stable with COPD and mild cardiomegaly. The patient apparently had seen Dr. Hare and she was told that her teeth condition has been adequate at this point for any form of cardiac or valve surgery. On 09/28/2017 patient seen in follow-up on medical surgical floor. Denies any acute distress. She is currently resting comfortably in bed, no signs of discomfort, oral residue distress noted. Lung sounds are positive for faint wheezes, and crackles over posterior bases. Become short of breath with any activity. Continues to be hypoxemic, on room air her O2 sat is 85%. On 3 L she is up to 93%. Afebrile, blood pressure this morning is marginally low, 85/ 61. Patient is asymptomatic with that. Microbiology results have been reviewed , urine and blood culture show no growth. Today's lab work shows no evidence of leukocytosis, WBCs 10.2, hemoglobin is 13, INR is 2.0, B1 is 16, creatinine 0.64. Patient remains in A. fib with a controlled rate. Patient was seen in consultation by cardiology, who will be resuming her home dose oral Lasix, patient continues on amiodarone, digoxin and Lopressor for heart rate control. Cardiothoracic surgery has also seen patient in evaluation, patient is still in need of dental clearance. On 09/29/2017 patient seen in follow-up. She remains wheezy, with congested bronchospastic cough. There is some scattered rhonchi throughout the lung cuadra. Oxygen is currently on standby, with her O2 sat is 94%. She is afebrile, hemodynamically stable. Urine and blood cultures show no growth. She continues on IV Solu-Medrol, Robitussin Cough syrup, Rocephin and Zithromax , Symbicort, and DuoNeb nebulized treatments. Lab work was reviewed, WBC of 14.9, hemoglobin of 12.4, INR today is 2.6, no electrolyte abnormality, renal profile is within normal limits. Patient has been ambulating to the bathroom, tolerating it fairly well. On 09/30/2017 patient seen in follow-up. She is resting quietly in bed, in no acute distress. Lung sounds still remain very wheezy, still has the loose congested cough. she has been afebrile. She denies any acute distress. She has been ambulating to the bathroom, tolerating activity well. She was advised to increase her activity further, walk in the hallway. Urine and blood cultures show no growth. today's lab work reviewed, WBC of 13.4, INR is 2.9, sodium is 141, potassium is 4.2, chloride is 99, carbon dioxide is 31, BUN is 19, creatinine is 0.81, no new chest x-rays. Patient would like to go home today, she states she has a dental appointment tomorrow. She was advised to get up and and ambulate, we will follow-up with her through the day and decide whether she can be safely discharged home today. On 10/01/2017 patient seen in follow-up on medical surgical floor. Remains wheezy, not much improvement despite the maximized medical treatment. Patient has been on high-dose steroids at 60 mg every 6 hours, on Zithromax and Rocephin , Symbicort, nebulized treatments. She is on oral Lasix daily, she is in -650 mL fluid balance over the last 24 hours. Not ready for discharge, follow-up chest x-ray from this morning showed chronic emphysematous change and cardiomegaly with developing central vascular congestion, consistent with CHF exacerbation. We will give additional 40 of Lasix IV. Continue with the rest of the medical treatments. Objective - Vital Signs Vital signs: Vital Signs Temp 96.9 F L 01/11/18 07:00 Pulse 68 10/01/17 11:15 Resp 18 10/01/17 07:00 BP 141/89 10/01/17 07:00 Pulse Ox 93 L 10/01/17 07:00 Intake & Output 09/30/17 10/01/17 10/01/17 18:59 06:59 18:59 Output Total 1999 650 1000 Balance -2000 -650 -1000 Weight 66.678 kg Output: Urine 1999 650 1000 Other: Voiding Method Indwelling Catheter Indwelling Catheter Indwelling Catheter # Bowel Movements 1 1 - Exam GENERAL EXAM: Alert, active, comfortable in no apparent distress. HEAD: Normocephalic. EYES: Normal reaction of pupils, equal size. NOSE: Clear with pink turbinates. THROAT: No erythema or exudates. NECK: No masses, no JVD. CHEST: No chest wall deformity. LUNGS: Equal air entry. There are diffuse expiratory wheezes throughout the lung cuadra bilaterally. CVS: Irregular S1 and S2 normal with an audible murmur, and a diastolic rumble and the patient's cardiac rhythm is irregular secondary his atrial fibrillation. ABDOMEN: No hepatosplenomegaly, normal bowel sounds, no guarding or rigidity. SPINE: No scoliosis or deformity SKIN: No rashes CENTRAL NERVOUS SYSTEM: No focal deficits, tone is normal in all 4 extremities. EXTREMITIES: There is trace peripheral edema. No clubbing, no cyanosis. Peripheral pulses are intact. - Labs CBC & Chem 7: 10/01/17 08:33 10/01/17 08:33 Labs: Abnormal Lab Results - Last 24 Hours (Table) 09/30/17 09/30/17 10/01/17 Range/Units 17:17 20:52 06:48 WBC (3.8-10.6) k/uL Neutrophils # (1.3-7.7) k/uL Lymphocytes # (1.0-4.8) k/uL PT (9.0-12.0) sec INR (<1.2) Chloride (98-107) mmol/L BUN (7-17) mg/dL Glucose (74-99) mg/dL POC Glucose (mg/dL) 135 H 204 H 163 H (75-99) mg/dL 10/01/17 10/01/17 10/01/17 Range/Units 08:33 08:33 08:33 WBC 12.2 H (3.8-10.6) k/uL Neutrophils # 10.6 H (1.3-7.7) k/uL Lymphocytes # 0.8 L (1.0-4.8) k/uL PT 24.3 H (9.0-12.0) sec INR 2.7 H (<1.2) Chloride 97 L (98-107) mmol/L BUN 23 H (7-17) mg/dL Glucose 180 H (74-99) mg/dL POC Glucose (mg/dL) (75-99) mg/dL 10/01/17 Range/Units 11:54 WBC (3.8-10.6) k/uL Neutrophils # (1.3-7.7) k/uL Lymphocytes # (1.0-4.8) k/uL PT (9.0-12.0) sec INR (<1.2) Chloride (98-107) mmol/L BUN (7-17) mg/dL Glucose (74-99) mg/dL POC Glucose (mg/dL) 188 H (75-99) mg/dL Microbiology - Last 24 Hours (Table) 09/27/17 06:32 Blood Culture - Preliminary Blood No Growth after 96 hours Assessment and Plan Plan: Assessment 1 acute COPD exacerbation with secondary shortness of breath. The patient has chronic dyspnea and her shortness of breath is multifactorial knowing that she has also severe mitral stenosis, severe pulmonary hypertension and diastolic heart failure in addition to her COPD. Nevertheless, the acute exacerbating factor for now as the COPD exacerbation. CHF seems to be currently inactive and stable. 2 CHF with diastolic dysfunction, today's chest x-ray shows cardiomegaly with developing central vascular congestion, consistent with CHF exacerbation 3 severe mitral stenosis with previous valvuloplasty. The patient was being contemplated for mitral valve replacement. She has severe pulmonary hypertension with a PA pressure estimated to be in the mid 70s. 4 chronic atrial fibrillation, rate is controlled and the patient is anticoagulated with a subtherapeutic PT/INR 5 chronic smoker and the patient claims that she hasn't smoked for the past 2 weeks 6 CVA/TIA, history of 7 severe pulmonary hypertension with a right ventricular systolic pressure of 71.9 mmHg 8 poor dental condition and the patient is still in need of dental clearance for the mitral valve surgery 9 hypertension 10 history of ASD closure Plan Patient still sounds very wheezy, despite the maximized medical treatment for her COPD. We'll obtain a repeat chest x-ray, this has been reviewed, shows increasing central vascular congestion, consistent with CHF exacerbation. We will give a dose of IV Lasix in addition to her oral Lasix. Not ready for discharge, continue with the rest of the medical treatments. I performed a history & physical examination of the patient and discussed their management with my nurse practitioner, Noemi Donald. I reviewed the nurse practitioner's note and agree with the documented findings and plan of care. Lung sounds are positive for diffuse wheezes. The findings and the impression was discussed with the patient. I attest to the documentation by the nurse practitioner. Time with Patient: Less than 30
[2017-10-01 17:33] LABS: Glucose,Whole Blood 221 mg/dL (75-99)
[2017-10-01 20:52] LABS: Glucose,Whole Blood 189 mg/dL (75-99)
[2017-10-01] MEDS: ESCITALOPRAM 10 MG TAB PO SCH (21:09)
[2017-10-01] MEDS: WARFARIN 1 MG TAB PO SCH (21:26)
[2017-10-01] MEDS: TEMAZEPAM 30 MG CAP PO SCH (21:26)
[2017-10-02] MEDS: methylPREDNISolone SOD SUCCI 125 MG/2 ML VIAL IV SCH ×3 (00:13→11:30)
[2017-10-02] MEDS: oxyCODONE-APAP 5-325MG 1 EACH TAB PO PRN ×3 (02:55→20:38)
[2017-10-02] MEDS: SYMBICORT 160-4.5 MCG INHALER INHALATION SCH ×2 (06:56→21:29)
[2017-10-02] MEDS: IPRATROPIUM-ALBUTEROL 3 ML NEB INHALATION SCH ×4 (06:56→21:29)
[2017-10-02 07:34] LABS: Glucose,Whole Blood 134 mg/dL (75-99)
[2017-10-02] MEDS: INSULIN ASPART 100 UNIT/ML 1 ML 10 ML VIAL SQ SCH ×4 (07:55→20:54)
[2017-10-02] MEDS: NICOTINE 21MG/24HR PATCH TRANSDERM SCH (07:56)
[2017-10-02] MEDS: PANTOPRAZOLE 40 MG TABLET PO SCH (07:56)
[2017-10-02] MEDS: guaiFENesin SYRUP 100MG/5ML 200 MG/10 ML CUP PO PRN (07:56)
[2017-10-02] MEDS: LORATADINE 10 MG TAB PO SCH (07:56)
[2017-10-02] MEDS: AZITHROMYCIN 500 MG TAB PO SCH (07:56)
[2017-10-02] MEDS: METOPROLOL TARTRATE 25 MG TAB PO SCH ×2 (07:57→20:45)
[2017-10-02] MEDS: AMIODARONE 200 MG TAB PO SCH ×2 (07:57→20:45)
[2017-10-02] MEDS: DIGOXIN 125 MCG TAB PO SCH (07:57)
[2017-10-02] MEDS: FUROSEMIDE 40 MG TAB PO SCH (07:57)
[2017-10-02] MEDS: SENNOSIDES-DOCUSATE SODIUM 1 EACH TAB PO SCH ×2 (07:58→20:45)
[2017-10-02] MEDS: OXYCONTIN PO SCH (07:58)
[2017-10-02] MEDS: clonazePAM 0.5 MG TAB PO PRN ×2 (08:46→20:40)
[2017-10-02 08:54] LABS: Anion Gap 11 mmol/L; Blood Urea Nitrogen 26 mg/dL (7-17); Calcium 9.5 mg/dL (8.4-10.2); Carbon Dioxide 36 mmol/L (22-30); Chloride 94 mmol/L (98-107); Glucose 132 mg/dL (74-99); Potassium 3.4 mmol/L (3.5-5.1); Sodium 141 mmol/L (137-145)
[2017-10-02 08:59] LABS: Basophils % (A) 0 %; Eosinophils % (A) 0 %; HCT 40.6 % (34.0-46.0); HGB 13.4 gm/dL (11.4-16.0); Lymphocytes # (A) 0.7 k/uL (1.0-4.8); Lymphocytes % (A) 7 %; MCH 30.4 pg (25.0-35.0); MCHC 33.1 g/dL (31.0-37.0); MCV 91.9 fL (80.0-100.0); Monocytes # (A) 0.4 k/uL (0-1.0); Monocytes % (A) 5 %; Neutrophils # (A) 8.1 k/uL (1.3-7.7); Neutrophils % (A) 87 %; Platelet Count 256 k/uL (150-450); RBC 4.41 m/uL (3.80-5.40); WBC 9.3 k/uL (3.8-10.6)
--- NOTE | 2017-10-02 10:04 | XR ---
EXAMINATION TYPE: XR chest 1V portable DATE OF EXAM: 10/02/2017 COMPARISON: Prior chest x-ray 10/01/2017 HISTORY: Follow-up congestive heart failure TECHNIQUE: Single frontal view of the chest is obtained. FINDINGS: The heart remains enlarged. Patchy density again noted in the left lung base. No evident p neumothorax or pleural effusion. There are overlying cardiac leads. Atrial septal defect closure bart ce is in place. Patient is rotated. IMPRESSION: Findings are similar to prior exam. Cardiomegaly. There may be basilar atelectasis, daniel elate to exclude pneumonia versus edema. Follow-up PA and lateral chest x-ray suggested as indicated.
[2017-10-02] MEDS ORDERED: POTASSIUM CHLORIDE ER 20 MEQ TAB.ER PO STA (11:08)
[2017-10-02] MEDS: cefTRIAXone IN SWFI 1,000 MG/10 ML SYRINGE IVP SCH (11:30)
[2017-10-02 12:46] LABS: Glucose,Whole Blood 115 mg/dL (75-99)
[2017-10-02] MEDS ORDERED: FUROSEMIDE 10 MG/ML 4 ML VIAL IV STA (14:43)
[2017-10-02 14:47] VITALS: BMI 22.6
--- NOTE | 2017-10-02 15:07 | P.PN ---
Subjective Progress Note Date: 10/02/17 Principal diagnosis: Acute COPD exacerbation. Dyspnea, multifactorial, history of severe mitral stenosis, severe pulmonary hypertension, diastolic heart failure, COPD. 61-year-old female patient who is well-known to us. The patient is known to have COPD, mitral stenosis, chronic atrial fibrillation, severe pulmonary hypertension, was coming into the hospital because of worsening shortness of breath. The patient was being Complaint for valvular surgery and mitral valve replacement however based on her COPD and her comorbidities and her poor dental condition the surgery got delayed at this point. The patient has had multiple hospitalization for CHF, A. fib and complications of heart failure and COPD exacerbation. She came into the ED last night because of increased shortness of breath and she was mainly bronchospastic and wheezy during this current hospitalization. The BNP was mildly elevated. The patient's INR was subtherapeutic at 1.6. The chest x-ray was stable with COPD and mild cardiomegaly. The patient apparently had seen Dr. Hare and she was told that her teeth condition has been adequate at this point for any form of cardiac or valve surgery. On 09/28/2017 patient seen in follow-up on medical surgical floor. Denies any acute distress. She is currently resting comfortably in bed, no signs of discomfort, oral residue distress noted. Lung sounds are positive for faint wheezes, and crackles over posterior bases. Become short of breath with any activity. Continues to be hypoxemic, on room air her O2 sat is 85%. On 3 L she is up to 93%. Afebrile, blood pressure this morning is marginally low, 85/ 61. Patient is asymptomatic with that. Microbiology results have been reviewed , urine and blood culture show no growth. Today's lab work shows no evidence of leukocytosis, WBCs 10.2, hemoglobin is 13, INR is 2.0, B1 is 16, creatinine 0.64. Patient remains in A. fib with a controlled rate. Patient was seen in consultation by cardiology, who will be resuming her home dose oral Lasix, patient continues on amiodarone, digoxin and Lopressor for heart rate control. Cardiothoracic surgery has also seen patient in evaluation, patient is still in need of dental clearance. On 09/29/2017 patient seen in follow-up. She remains wheezy, with congested bronchospastic cough. There is some scattered rhonchi throughout the lung cuadra. Oxygen is currently on standby, with her O2 sat is 94%. She is afebrile, hemodynamically stable. Urine and blood cultures show no growth. She continues on IV Solu-Medrol, Robitussin Cough syrup, Rocephin and Zithromax , Symbicort, and DuoNeb nebulized treatments. Lab work was reviewed, WBC of 14.9, hemoglobin of 12.4, INR today is 2.6, no electrolyte abnormality, renal profile is within normal limits. Patient has been ambulating to the bathroom, tolerating it fairly well. On 09/30/2017 patient seen in follow-up. She is resting quietly in bed, in no acute distress. Lung sounds still remain very wheezy, still has the loose congested cough. she has been afebrile. She denies any acute distress. She has been ambulating to the bathroom, tolerating activity well. She was advised to increase her activity further, walk in the hallway. Urine and blood cultures show no growth. today's lab work reviewed, WBC of 13.4, INR is 2.9, sodium is 141, potassium is 4.2, chloride is 99, carbon dioxide is 31, BUN is 19, creatinine is 0.81, no new chest x-rays. Patient would like to go home today, she states she has a dental appointment tomorrow. She was advised to get up and and ambulate, we will follow-up with her through the day and decide whether she can be safely discharged home today. On 10/01/2017 patient seen in follow-up on medical surgical floor. Remains wheezy, not much improvement despite the maximized medical treatment. Patient has been on high-dose steroids at 60 mg every 6 hours, on Zithromax and Rocephin , Symbicort, nebulized treatments. She is on oral Lasix daily, she is in -650 mL fluid balance over the last 24 hours. Not ready for discharge, follow-up chest x-ray from this morning showed chronic emphysematous change and cardiomegaly with developing central vascular congestion, consistent with CHF exacerbation. We will give additional 40 of Lasix IV. Continue with the rest of the medical treatments. On 10/02/2017 patient seen in follow-up. Lung sounds are significantly improved , hardly any wheezing, today they're just diminished overall, the few scattered crackles. She is currently on room air, 2 sat 97%. He brown, hemodynamically stable. She is in -4.2 L fluid balance today, her weight is down by 3.1 kg last 24 hours. Follow-up chest x-ray from this morning shows cardiomegaly, basilar atelectasis, there is improvement noted in the appearance of the central vascular congestion. There is improvement of patient's wheezing overnight in response to diuresis. Blood and urine culture show no growth. Remains afebrile, vital signs are stable. We will give additional dose of 40 mg of Lasix today, and patient can be discharged home today. Objective - Vital Signs Vital signs: Vital Signs Temp 97.6 F 10/02/17 07:00 Pulse 62 10/02/17 11:03 Resp 18 10/02/17 10:53 BP 143/85 10/02/17 07:00 Pulse Ox 97 10/02/17 07:00 Intake & Output 10/01/17 10/02/17 10/02/17 18:59 06:59 18:59 Output Total 3500 750 Balance -3500 -750 Weight 63.503 kg Output: Urine 3500 750 Other: Voiding Method Indwelling Catheter Indwelling Catheter Indwelling Catheter # Voids 2 # Bowel Movements 1 - Exam GENERAL EXAM: Alert, active, comfortable in no apparent distress. HEAD: Normocephalic. EYES: Normal reaction of pupils, equal size. NOSE: Clear with pink turbinates. THROAT: No erythema or exudates. NECK: No masses, no JVD. CHEST: No chest wall deformity. LUNGS: Equal air entry. Lung sounds show significant improvement in terms of wheezing, hardly any wheezing today, generally diminished with some scattered rales bilaterally CVS: Irregular S1 and S2 normal with an audible murmur, and a diastolic rumble and the patient's cardiac rhythm is irregular secondary his atrial fibrillation. ABDOMEN: No hepatosplenomegaly, normal bowel sounds, no guarding or rigidity. SPINE: No scoliosis or deformity SKIN: No rashes CENTRAL NERVOUS SYSTEM: No focal deficits, tone is normal in all 4 extremities. EXTREMITIES: There is trace peripheral edema. No clubbing, no cyanosis. Peripheral pulses are intact. - Labs CBC & Chem 7: 10/02/17 07:41 01/12/18 07:41 Labs: Abnormal Lab Results - Last 24 Hours (Table) 10/01/17 10/01/17 10/02/17 Range/Units 17:17 20:48 07:02 Neutrophils # (1.3-7.7) k/uL Lymphocytes # (1.0-4.8) k/uL PT (9.0-12.0) sec INR (<1.2) Potassium (3.5-5.1) mmol/L Chloride (98-107) mmol/L Carbon Dioxide (22-30) mmol/L BUN (7-17) mg/dL Glucose (74-99) mg/dL POC Glucose (mg/dL) 221 H 189 H 134 H (75-99) mg/dL 10/02/17 10/02/17 10/02/17 Range/Units 07:41 07:41 07:41 Neutrophils # 8.1 H (1.3-7.7) k/uL Lymphocytes # 0.7 L (1.0-4.8) k/uL PT 27.0 H (9.0-12.0) sec INR 3.0 H (<1.2) Potassium 3.4 L (3.5-5.1) mmol/L Chloride 94 L (98-107) mmol/L Carbon Dioxide 36 H (22-30) mmol/L BUN 26 H (7-17) mg/dL Glucose 132 H (74-99) mg/dL POC Glucose (mg/dL) (75-99) mg/dL 10/02/17 Range/Units 12:33 Neutrophils # (1.3-7.7) k/uL Lymphocytes # (1.0-4.8) k/uL PT (9.0-12.0) sec INR (<1.2) Potassium (3.5-5.1) mmol/L Chloride (98-107) mmol/L Carbon Dioxide (22-30) mmol/L BUN (7-17) mg/dL Glucose (74-99) mg/dL POC Glucose (mg/dL) 115 H (75-99) mg/dL Microbiology - Last 24 Hours (Table) 09/27/17 06:32 Blood Culture - Preliminary Blood No Growth after 120 hours Assessment and Plan Plan: Assessment 1 acute COPD exacerbation with secondary shortness of breath. The patient has chronic dyspnea and her shortness of breath is multifactorial knowing that she has also severe mitral stenosis, severe pulmonary hypertension and diastolic heart failure in addition to her COPD. Nevertheless, the acute exacerbating factor for now as the COPD exacerbation. 2 CHF with diastolic dysfunction, chest x-ray from 10/01/2017 shows cardiomegaly with developing central vascular congestion, consistent with CHF exacerbation. Follow-up chest x-ray from today on 10/02/2017 with similar findings with cardiomegaly, basilar atelectasis, pneumonia versus CHF. Patient is given additional dose of IV diuretics yesterday, with significant improvement in her wheezing, shortness of breath, and oxygenation. 3 severe mitral stenosis with previous valvuloplasty. The patient was being contemplated for mitral valve replacement. She has severe pulmonary hypertension with a PA pressure estimated to be in the mid 70s. 4 chronic atrial fibrillation, rate is controlled and the patient is anticoagulated with a subtherapeutic PT/INR 5 chronic smoker and the patient claims that she hasn't smoked for the past 2 weeks 6 CVA/TIA, history of 7 severe pulmonary hypertension with a right ventricular systolic pressure of 71.9 mmHg 8 poor dental condition and the patient is still in need of dental clearance for the mitral valve surgery 9 hypertension 10 history of ASD closure Plan There is significant improvement in terms of wheezing and oxygenation noted on today's physical exam. She is afebrile, hemodynamically stable. Patient responded well to diuretics, we will give additional dose of 40 mg of Lasix IV push today, and patient can be discharged home from pulmonary standpoint, she can complete outpatient course Ceftin, prednisone taper and oral Lasix. Continue maintenance inhalers. Follow-up with Dr. Arellano in the office in one week I performed a history & physical examination of the patient and discussed their management with my nurse practitioner, Noemi Donald. I reviewed the nurse practitioner's note and agree with the documented findings and plan of care. Lung sounds are diminished, with scattered crackles. The findings and the impression was discussed with the patient. I attest to the documentation by the nurse practitioner. Time with Patient: Less than 30
[2017-10-02 17:29] LABS: Glucose,Whole Blood 143 mg/dL (75-99)
[2017-10-02] MEDS: ESCITALOPRAM 10 MG TAB PO SCH (20:45)
[2017-10-02 20:46] LABS: Glucose,Whole Blood 233 mg/dL (75-99)
[2017-10-02] MEDS: methylPREDNISolone SOD SUCCI 40 MG/ML 1 ML VIAL IV SCH (20:46)
[2017-10-02] MEDS: WARFARIN 1 MG TAB PO SCH (20:48)
[2017-10-02] MEDS: TEMAZEPAM 30 MG CAP PO SCH (20:57)
[2017-10-03] MEDS: guaiFENesin SYRUP 100MG/5ML 200 MG/10 ML CUP PO PRN ×2 (03:51→10:50)
[2017-10-03] MEDS: IPRATROPIUM-ALBUTEROL 3 ML NEB INHALATION SCH ×3 (06:58→15:40)
[2017-10-03] MEDS: SYMBICORT 160-4.5 MCG INHALER INHALATION SCH (06:58)
[2017-10-03 07:33] LABS: Glucose,Whole Blood 116 mg/dL (75-99)
[2017-10-03] MEDS: INSULIN ASPART 100 UNIT/ML 1 ML 10 ML VIAL SQ SCH ×2 (07:43→13:16)
[2017-10-03 07:50] VITALS: RESP 18
--- NOTE | 2017-10-03 08:17 | P.PN ---
Subjective Progress Note Date: 10/03/17 Principal diagnosis: Severe mitral valve stenosis. 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 Patient's currently laying in bed in no acute distress. Denies chest pain, shortness of breath. No new concerns. Objective - Vital Signs Vital signs: Vital Signs Temp 97.5 F L 10/03/17 07:00 Pulse 64 10/03/17 07:12 Resp 18 10/03/17 07:00 BP 131/71 10/03/17 07:00 Pulse Ox 95 10/03/17 07:01 Intake & Output 10/02/17 10/03/17 10/03/17 18:59 06:59 18:59 Output Total 1250 700 Balance -1250 -700 Weight 63.503 kg 64 kg Output: Urine 1250 700 Other: Voiding Method Indwelling Catheter Indwelling Catheter # Voids 2 1 # Bowel Movements 1 0 - Constitutional General appearance: Present: cooperative, no acute distress - Respiratory Details: Lungs sounds diminished bilaterally with faint expiratory wheezes present. Respirations even, nonlabored. Currently on room air with oxygen saturation 95% . - Cardiovascular Details: S1, S2 present. Regular rate and rhythm. Palpable peripheral pulses bilaterally. No edema present. No calf pain or tenderness noted. - Gastrointestinal Gastrointestinal Comment(s): Abdomen soft, nontender, nondistended. Active bowel sounds 4 quadrants. Tolerating diet. - Genitourinary Genitourinary Comment(s): Voiding clear, yellow urine. - Integumentary Integumentary Comment(s): Skin warm, pink, dry with evidence of good perfusion. - Neurologic Neurologic: Present: CNII-XII intact - Musculoskeletal Musculoskeletal: Present: gait normal, strength equal bilaterally - Psychiatric Psychiatric: Present: A&O x's 3, appropriate affect, intact judgment & insight - Allied health notes Allied health notes reviewed: nursing - Labs CBC & Chem 7: 10/02/17 07:41 10/02/17 07:41 Labs: Abnormal Lab Results - Last 24 Hours (Table) 10/02/17 10/02/17 10/02/17 Range/Units 07:41 07:41 07:41 Neutrophils # 8.1 H (1.3-7.7) k/uL Lymphocytes # 0.7 L (1.0-4.8) k/uL PT 27.0 H (9.0-12.0) sec INR 3.0 H (<1.2) Potassium 3.4 L (3.5-5.1) mmol/L Chloride 94 L (98-107) mmol/L Carbon Dioxide 36 H (22-30) mmol/L BUN 26 H (7-17) mg/dL Glucose 132 H (74-99) mg/dL POC Glucose (mg/dL) (75-99) mg/dL 10/02/17 10/02/17 10/02/17 Range/Units 12:33 17:07 20:39 Neutrophils # (1.3-7.7) k/uL Lymphocytes # (1.0-4.8) k/uL PT (9.0-12.0) sec INR (<1.2) Potassium (3.5-5.1) mmol/L Chloride (98-107) mmol/L Carbon Dioxide (22-30) mmol/L BUN (7-17) mg/dL Glucose (74-99) mg/dL POC Glucose (mg/dL) 115 H 143 H 233 H (75-99) mg/dL 10/03/17 Range/Units 07:02 Neutrophils # (1.3-7.7) k/uL Lymphocytes # (1.0-4.8) k/uL PT (9.0-12.0) sec INR (<1.2) Potassium (3.5-5.1) mmol/L Chloride (98-107) mmol/L Carbon Dioxide (22-30) mmol/L BUN (7-17) mg/dL Glucose (74-99) mg/dL POC Glucose (mg/dL) 116 H (75-99) mg/dL Microbiology - Last 24 Hours (Table) 09/27/17 06:32 Blood Culture - Preliminary Blood No Growth after 120 hours Assessment and Plan (1) History of pneumonia Current Visit: Yes Status: Acute Code(s): Z87.01 - PERSONAL HISTORY OF PNEUMONIA (RECURRENT) SNOMED Code(s): 104401971 (2) COPD (chronic obstructive pulmonary disease) Current Visit: Yes Status: Chronic Code(s): J44.9 - CHRONIC OBSTRUCTIVE PULMONARY DISEASE, UNSPECIFIED SNOMED Code(s): 65559904 (3) Chronic a-fib Current Visit: Yes Status: Chronic Code(s): I48.2 - CHRONIC ATRIAL FIBRILLATION SNOMED Code(s): 824420552 (4) History of CVA (cerebrovascular accident) Current Visit: Yes Status: Chronic Code(s): Z86.73 - PRSNL HX OF TIA (TIA), AND CEREB INFRC W/O RESID DEFICITS SNOMED Code(s): 447695927 (5) Mitral valve stenosis, severe Current Visit: Yes Status: Chronic Code(s): I05.0 - RHEUMATIC MITRAL STENOSIS SNOMED Code(s): 11404222 (6) Nicotine dependence Current Visit: No Status: Resolved Code(s): F17.200 - NICOTINE DEPENDENCE, UNSPECIFIED, UNCOMPLICATED SNOMED Code(s): 29220348 (7) Noncompliance Current Visit: Yes Status: Chronic Code(s): Z91.19 - PATIENT'S NONCOMPLIANCE W OTH MEDICAL TREATMENT AND REGIMEN SNOMED Code(s): 6452621 Plan: 1. Continue amiodarone, digoxin, Lopressor, Lasix. 2. Antibiotics, steroids per pulmonology. 3. Medical comorbidities who managed by primary care service. 4. Encourage incentive spirometry use. 5. Increase activity, ambulate as tolerated. 6. Encourage smoking cessation. 7. May discharge to home from our standpoint. Patient verbalizes understanding of need to obtain dental clearance and then to follow up in our office to schedule surgery. This has been discussed at length with the patient' s daughter as well. Time with Patient: Greater than 30
[2017-10-03] MEDS: AMIODARONE 200 MG TAB PO SCH (08:19)
[2017-10-03] MEDS: methylPREDNISolone SOD SUCCI 40 MG/ML 1 ML VIAL IV SCH (08:19)
[2017-10-03] MEDS: NICOTINE 21MG/24HR PATCH TRANSDERM SCH (08:19)
[2017-10-03] MEDS: METOPROLOL TARTRATE 25 MG TAB PO SCH (08:19)
[2017-10-03] MEDS: AZITHROMYCIN 500 MG TAB PO SCH (08:20)
[2017-10-03] MEDS: DIGOXIN 125 MCG TAB PO SCH (08:20)
[2017-10-03] MEDS: FUROSEMIDE 40 MG TAB PO SCH (08:20)
[2017-10-03] MEDS: SENNOSIDES-DOCUSATE SODIUM 1 EACH TAB PO SCH (08:20)
[2017-10-03] MEDS: LORATADINE 10 MG TAB PO SCH (08:20)
[2017-10-03] MEDS: PANTOPRAZOLE 40 MG TABLET PO SCH (08:20)
[2017-10-03] MEDS: OXYCONTIN PO SCH (08:21)
[2017-10-03] MEDS: oxyCODONE-APAP 5-325MG 1 EACH TAB PO PRN (10:50)
[2017-10-03] MEDS: cefTRIAXone IN SWFI 1,000 MG/10 ML SYRINGE IVP SCH (10:51)
--- NOTE | 2017-10-03 10:54 | P.DS ---
Providers Date of admission: 09/27/17 07:25 Attending physician: Raphael Egan Consults: 09/27/17 07:25 Consult Physician Routine Consulting Provider: Tanmay Dave Consult Reason/Comments: copd Do you want consulting provider notified?: Yes 09/27/17 12:31 Consult Physician Routine Consulting Provider: Yann Nunn Consult Reason/Comments: mitral stenosis Do you want consulting provider notified?: Yes 09/27/17 15:51 Consult Physician Routine Consulting Provider: Ike Kahn Consult Reason/Comments: afib with rvr Do you want consulting provider notified?: Yes Primary care physician: Raphael Egan Hospital Course: 61-year-old female had multiple hospitalization for respiratory failure continues to smoke came in with COPD exacerbation patient was treated for COPD exacerbation and bronchitis patient is clinically doing well patient does have a mitral stenosis for which patient will follow with the cardiovascular thoracic surgery patient also has chronic diastolic dysfunction patient was treated for a chronic diastolic dysfunction with acute exacerbation as well patient is otherwise clinically significantly improved respiratory status. PHYSICAL EXAMINATION: GENERAL: The patient is alert and oriented x3, not in any acute distress. Well developed, well nourished. HEENT: Pupils are round and equally reacting to light. EOMI. No scleral icterus. No conjunctival pallor. Normocephalic, atraumatic. No pharyngeal erythema. No thyromegaly. CARDIOVASCULAR: S1 and S2 present. No rubs, or gallops. She does have a diastolic murmur in mitral area PULMONARY: Chest is clear to auscultation, no wheezing or crackles. ABDOMEN: Soft, nontender, nondistended, normoactive bowel sounds. No palpable organomegaly. MUSCULOSKELETAL: No joint swelling or deformity. EXTREMITIES: No cyanosis, clubbing, or pedal edema. NEUROLOGICAL: Gross neurological examination did not reveal any focal deficits. SKIN: No rashes. Assessment and Plan Plan: Assessment 1 acute COPD exacerbation with secondary shortness of breath. She was treated for acute hypercapnic respiratory failure 2 CHF with diastolic dysfunction, 3 severe mitral stenosis with previous valvuloplasty. The patient was being contemplated for mitral valve replacement. She has severe pulmonary hypertension with a PA pressure estimated to be in the mid 70s. 4 chronic atrial fibrillation, rate is controlled and the patient is anticoagulated therapeutic INR is being discharged on 1 mg of Coumadin 5 CVA/TIA, history of 6 severe pulmonary hypertension with a right ventricular systolic pressure of 71.9 mmHg 7 hypertension Patient Condition at Discharge: Good Plan - Discharge Summary Discharge Rx Participant: No New Discharge Prescriptions: New predniSONE 10 mg PO DAILY #30 tab Warfarin [Coumadin] 1 mg PO HS tab Continue Loratadine [Claritin] 10 mg PO DAILY Digoxin [Lanoxin] 125 mcg PO DAILY Pantoprazole [Protonix] 40 mg PO AC-BRKFST #30 tab Budesonide-Formot 160-4.5 Mcg [Symbicort 160-4.5 Mcg Inhaler] 2 puff INHALATION RT-BID #1 inh Albuterol Inhaler [Ventolin Hfa Inhaler] 1 - 2 puff INHALATION RT-QID PRN PRN Reason: Shortness Of Breath clonazePAM [Klonopin ODT Wafer] 0.25 mg PO TID PRN PRN Reason: Anxiety Furosemide [Lasix] 40 mg PO DAILY Oxycontin Er 5mg 5 mg PO DAILY Amiodarone [Cordarone] 200 mg PO BID #60 tab Ipratropium-Albuterol Nebulize [Duoneb 0.5 mg-3 mg/3 ml Soln] 3 ml INHALATION RT-QID #120 ampul.neb Metoprolol Tartrate [Lopressor] 25 mg PO DAILY #30 tab ALPRAZolam [Xanax] 0.25 mg PO TID PRN #15 tab PRN Reason: Anxiety Escitalopram [Lexapro] 10 mg PO HS #30 Temazepam [Restoril] 15 mg PO HS #1 oxyCODONE-APAP 5-325MG [Percocet 5-325 mg] 1 tab PO Q6HR PRN PRN Reason: Pain Cefuroxime Axetil [Ceftin] 500 mg PO BID #8 tab Discontinued Warfarin [Coumadin] 1 mg PO HS #30 Discharge Medication List Digoxin [Lanoxin] 125 mcg PO DAILY 05/22/17 [History] Loratadine [Claritin] 10 mg PO DAILY 05/22/17 [History] Pantoprazole [Protonix] 40 mg PO AC-BRKFST #30 tab 05/29/17 [Rx] Budesonide-Formot 160-4.5 Mcg [Symbicort 160-4.5 Mcg Inhaler] 2 puff INHALATION RT-BID #1 inh 10/26/17 [Rx] Albuterol Inhaler [Ventolin Hfa Inhaler] 1 - 2 puff INHALATION RT-QID PRN [History] Furosemide [Lasix] 40 mg PO DAILY 09/01/17 [History] Oxycontin Er 5mg 5 mg PO DAILY 09/01/17 [History] clonazePAM [Klonopin ODT Wafer] 0.25 mg PO TID PRN 09/01/17 [History] ALPRAZolam [Xanax] 0.25 mg PO TID PRN #15 tab 09/06/17 [Rx] Amiodarone [Cordarone] 200 mg PO BID #60 tab 09/06/17 [Rx] Escitalopram [Lexapro] 10 mg PO HS #30 09/06/17 [Rx] Ipratropium-Albuterol Nebulize [Duoneb 0.5 mg-3 mg/3 ml Soln] 3 ml INHALATION RT -QID #120 ampul.neb 09/06/17 [Rx] Metoprolol Tartrate [Lopressor] 25 mg PO DAILY #30 tab 09/06/17 [Rx] Temazepam [Restoril] 15 mg PO HS #1 09/06/17 [Rx] oxyCODONE-APAP 5-325MG [Percocet 5-325 mg] 1 tab PO Q6HR PRN 09/27/17 [History] Cefuroxime Axetil [Ceftin] 500 mg PO BID #8 tab 10/03/17 [Rx] Warfarin [Coumadin] 1 mg PO HS tab 10/03/17 [Rx] predniSONE 10 mg PO DAILY #30 tab 10/03/17 [Rx] Follow up Appointment(s)/Referral(s): Raphael Egan MD [Primary Care Provider] - 1 Week Tanmay Dave MD [STAFF PHYSICIAN] - 1 Week Song Hare DDS [STAFF PHYSICIAN] - As Needed [facility], [NON-STAFF] - Yann Nunn MD [STAFF PHYSICIAN] - As Needed (Please call to make follow-up appointment once dental clearance is obtained) Patient Instructions/Handouts: Heart Failure (DC), Carreno Catheter Placement and Care (DC), COPD (Chronic Obstructive Pulmonary Disease) (DC), Pulmonary Rehabilitation (DC) Activity/Diet/Wound Care/Special Instructions: COPD stoplight form given. Cardiac diet. NO smoking, cessation information provided. Activity as tolerated. Fall precautions. Maintain carreno until primary doctor removes. Keep clean and empty when 3\4 full. Discharge Disposition: HOME SELF-CARE
--- NOTE | 2017-10-03 11:37 | P.PN ---
Subjective Progress Note Date: 10/03/17 Principal diagnosis: Dyspnea, multifactorial, history of severe mitral stenosis, severe pulmonary hypertension, diastolic congestive heart failure, COPD. 61-year-old female patient who is well-known to us. The patient is known to have COPD, mitral stenosis, chronic atrial fibrillation, severe pulmonary hypertension, was coming into the hospital because of worsening shortness of breath. The patient was being Complaint for valvular surgery and mitral valve replacement however based on her COPD and her comorbidities and her poor dental condition the surgery got delayed at this point. The patient has had multiple hospitalization for CHF, A. fib and complications of heart failure and COPD exacerbation. She came into the ED last night because of increased shortness of breath and she was mainly bronchospastic and wheezy during this current hospitalization. The BNP was mildly elevated. The patient's INR was subtherapeutic at 1.6. The chest x-ray was stable with COPD and mild cardiomegaly. The patient apparently had seen Dr. Hare and she was told that her teeth condition has been adequate at this point for any form of cardiac or valve surgery. On 09/28/2017 patient seen in follow-up on medical surgical floor. Denies any acute distress. She is currently resting comfortably in bed, no signs of discomfort, oral residue distress noted. Lung sounds are positive for faint wheezes, and crackles over posterior bases. Become short of breath with any activity. Continues to be hypoxemic, on room air her O2 sat is 85%. On 3 L she is up to 93%. Afebrile, blood pressure this morning is marginally low, 85/ 61. Patient is asymptomatic with that. Microbiology results have been reviewed , urine and blood culture show no growth. Today's lab work shows no evidence of leukocytosis, WBCs 10.2, hemoglobin is 13, INR is 2.0, B1 is 16, creatinine 0.64. Patient remains in A. fib with a controlled rate. Patient was seen in consultation by cardiology, who will be resuming her home dose oral Lasix, patient continues on amiodarone, digoxin and Lopressor for heart rate control. Cardiothoracic surgery has also seen patient in evaluation, patient is still in need of dental clearance. On 09/29/2017 patient seen in follow-up. She remains wheezy, with congested bronchospastic cough. There is some scattered rhonchi throughout the lung cuadra. Oxygen is currently on standby, with her O2 sat is 94%. She is afebrile, hemodynamically stable. Urine and blood cultures show no growth. She continues on IV Solu-Medrol, Robitussin Cough syrup, Rocephin and Zithromax , Symbicort, and DuoNeb nebulized treatments. Lab work was reviewed, WBC of 14.9, hemoglobin of 12.4, INR today is 2.6, no electrolyte abnormality, renal profile is within normal limits. Patient has been ambulating to the bathroom, tolerating it fairly well. On 09/30/2017 patient seen in follow-up. She is resting quietly in bed, in no acute distress. Lung sounds still remain very wheezy, still has the loose congested cough. she has been afebrile. She denies any acute distress. She has been ambulating to the bathroom, tolerating activity well. She was advised to increase her activity further, walk in the hallway. Urine and blood cultures show no growth. today's lab work reviewed, WBC of 13.4, INR is 2.9, sodium is 141, potassium is 4.2, chloride is 99, carbon dioxide is 31, BUN is 19, creatinine is 0.81, no new chest x-rays. Patient would like to go home today, she states she has a dental appointment tomorrow. She was advised to get up and and ambulate, we will follow-up with her through the day and decide whether she can be safely discharged home today. On 10/01/2017 patient seen in follow-up on medical surgical floor. Remains wheezy, not much improvement despite the maximized medical treatment. Patient has been on high-dose steroids at 60 mg every 6 hours, on Zithromax and Rocephin , Symbicort, nebulized treatments. She is on oral Lasix daily, she is in -650 mL fluid balance over the last 24 hours. Not ready for discharge, follow-up chest x-ray from this morning showed chronic emphysematous change and cardiomegaly with developing central vascular congestion, consistent with CHF exacerbation. We will give additional 40 of Lasix IV. Continue with the rest of the medical treatments. On 10/02/2017 patient seen in follow-up. Lung sounds are significantly improved , hardly any wheezing, today they're just diminished overall, the few scattered crackles. She is currently on room air, 2 sat 97%. He brown, hemodynamically stable. She is in -4.2 L fluid balance today, her weight is down by 3.1 kg last 24 hours. Follow-up chest x-ray from this morning shows cardiomegaly, basilar atelectasis, there is improvement noted in the appearance of the central vascular congestion. There is improvement of patient's wheezing overnight in response to diuresis. Blood and urine culture show no growth. Remains afebrile, vital signs are stable. We will give additional dose of 40 mg of Lasix today, and patient can be discharged home today. Seen again today 10/08/2017 in follow-up on the regular medical floor. She is awake and alert in no acute distress. Denies any worsening shortness of breath , cough or congestion. She is maintaining O2 saturations in the mid 90s on room air. She's been afebrile. No tachycardia. No tachypnea. Remains in negative balance. The plan is for discharge home with the indwelling catheter to remain in place. Objective - Vital Signs Vital signs: Vital Signs Temp 97.5 F L 10/03/17 07:00 Pulse 72 10/03/17 11:07 Resp 18 10/03/17 08:00 BP 131/71 10/03/17 07:00 Pulse Ox 95 10/03/17 07:01 Intake & Output 10/02/17 10/03/17 10/03/17 18:59 06:59 18:59 Intake Total 480 Output Total 1250 700 300 Balance -1250 -700 180 Weight 63.503 kg 64 kg Intake: Oral 480 Output: Urine 1250 700 300 Other: Voiding Method Indwelling Catheter Indwelling Catheter Indwelling Catheter # Voids 2 1 # Bowel Movements 1 0 - Exam GENERAL EXAM: Alert, active, comfortable in no apparent distress. HEAD: Normocephalic. EYES: Normal reaction of pupils, equal size. NOSE: Clear with pink turbinates. THROAT: No erythema or exudates. NECK: No masses, no JVD. CHEST: No chest wall deformity. LUNGS: Equal air entry. Lung sounds show significant improvement in terms of wheezing, hardly any wheezing today, generally diminished with some scattered rales bilaterally CVS: Irregular S1 and S2 normal with an audible murmur, and a diastolic rumble and the patient's cardiac rhythm is irregular secondary his atrial fibrillation. ABDOMEN: No hepatosplenomegaly, normal bowel sounds, no guarding or rigidity. SPINE: No scoliosis or deformity SKIN: No rashes CENTRAL NERVOUS SYSTEM: No focal deficits, tone is normal in all 4 extremities. EXTREMITIES: There is trace peripheral edema. No clubbing, no cyanosis. Peripheral pulses are intact. - Labs CBC & Chem 7: 10/02/17 07:41 10/02/17 07:41 Labs: Abnormal Lab Results - Last 24 Hours (Table) 10/02/17 10/02/17 10/02/17 Range/Units 12:33 17:07 20:39 POC Glucose (mg/dL) 115 H 143 H 233 H (75-99) mg/dL 10/03/17 Range/Units 07:02 POC Glucose (mg/dL) 116 H (75-99) mg/dL Microbiology - Last 24 Hours (Table) 09/27/17 06:32 Blood Culture - Final Blood No Growth after 144 hours Assessment and Plan Assessment: Assessment 1 acute COPD exacerbation with secondary shortness of breath. The patient has chronic dyspnea and her shortness of breath is multifactorial knowing that she has also severe mitral stenosis, severe pulmonary hypertension and diastolic heart failure in addition to her COPD. Nevertheless, the acute exacerbating factor for now as the COPD exacerbation. 2 CHF with diastolic dysfunction, chest x-ray from 10/01/2017 shows cardiomegaly with developing central vascular congestion, consistent with CHF exacerbation. Follow-up chest x-ray from today on 10/02/2017 with similar findings with cardiomegaly, basilar atelectasis, pneumonia versus CHF. Patient is given additional dose of IV diuretics yesterday, with significant improvement in her wheezing, shortness of breath, and oxygenation. 3 severe mitral stenosis with previous valvuloplasty. The patient was being contemplated for mitral valve replacement. She has severe pulmonary hypertension with a PA pressure estimated to be in the mid 70s. 4 chronic atrial fibrillation, rate is controlled and the patient is anticoagulated with a subtherapeutic PT/INR 5 chronic smoker and the patient claims that she hasn't smoked for the past 2 weeks 6 CVA/TIA, history of 7 severe pulmonary hypertension with a right ventricular systolic pressure of 71.9 mmHg 8 poor dental condition and the patient is still in need of dental clearance for the mitral valve surgery 9 hypertension 10 history of ASD closure Plan: The patient was seen and evaluated by Dr. Dave. She is again cleared for discharge from the pulmonary standpoint. She'll be going home and staying with her daughter for now. There is plan for dental appointment. She will follow- up in our office in 1-2 weeks' time. She is however encouraged to call sooner with any recurrence of symptoms or other questions or concerns. I, the cosigning physician, have performed a history and physical examination on the patient. Lung sounds are clear. Maintaining good O2 saturations in the 90s on room air. I have discussed the assessment and plan of care with my nurse practitioner, Stacie Mohamud. I attest to the above note as dictated by her.
[2017-10-03 12:58] LABS: Glucose,Whole Blood 110 mg/dL (75-99)
[2017-10-03 15:26] VITALS: BP 123/76; TEMP 96.6
[2017-10-03 15:42] VITALS: PULSE 70
[2017-10-03 16:28] LABS: INR 3.6 (<1.2); Prothrombin Time 32.7 sec (9.0-12.0)
--- NOTE | 2017-10-09 12:58 | P.PN ---
Subjective Progress Note Date: 10/02/17 Progress note being dictated for Dr. Baumann Interval history: This is a 61-year-old female with multiple hospitalizations for respiratory failure, continues to smoke, admitted with acute COPD exacerbation, acute chf exacerbation and bronchitis. Patient does has mitral stenosis, following with cardiovascular thoracic surgery. Breathing significantly improved, less wheezing. Chest x-ray reporting improvement in central vascular congestion. Diuresing well with 24-hour I&O reflecting a negative fluid balance. Afebrile, urine and blood cultures negative. Objective - Vital Signs Vital signs: Vital Signs Temp 97.1 F L 10/02/17 15:00 Pulse 81 10/02/17 15:51 Resp 16 10/02/17 16:00 BP 136/80 10/02/17 15:00 Pulse Ox 91 L 10/02/17 15:40 Intake & Output 10/01/17 10/02/17 10/02/17 18:59 06:59 18:59 Output Total 3500 750 1250 Balance -3500 -750 -1250 Weight 63.503 kg 63.503 kg Output: Urine 3500 750 1250 Other: Voiding Method Indwelling Catheter Indwelling Catheter Indwelling Catheter # Voids 2 2 # Bowel Movements 1 1 - Exam GENERAL: The patient is alert and oriented x3, not in any acute distress. Well developed, well nourished. HEENT: Pupils are round and equally reacting to light. EOMI. No scleral icterus. No conjunctival pallor. Normocephalic, atraumatic. No pharyngeal erythema. No thyromegaly. CARDIOVASCULAR: S1 and S2 present. No rubs, or gallops. She does have a diastolic murmur in mitral area PULMONARY: Chest is clear to auscultation, minimal expiratory wheezing, occasional scattered fine crackles. ABDOMEN: Soft, nontender, nondistended, normoactive bowel sounds. No palpable organomegaly. MUSCULOSKELETAL: No joint swelling or deformity. EXTREMITIES: No cyanosis, clubbing, or pedal edema. NEUROLOGICAL: Gross neurological examination did not reveal any focal deficits. SKIN: No rashes. - Labs CBC & Chem 7: 10/02/17 07:41 10/02/17 07:41 Labs: Abnormal Lab Results - Last 24 Hours (Table) 10/01/17 10/02/17 10/02/17 Range/Units 20:48 07:02 07:41 Neutrophils # 8.1 H (1.3-7.7) k/uL Lymphocytes # 0.7 L (1.0-4.8) k/uL PT (9.0-12.0) sec INR (<1.2) Potassium (3.5-5.1) mmol/L Chloride (98-107) mmol/L Carbon Dioxide (22-30) mmol/L BUN (7-17) mg/dL Glucose (74-99) mg/dL POC Glucose (mg/dL) 189 H 134 H (75-99) mg/dL 10/02/17 10/02/17 10/02/17 Range/Units 07:41 07:41 12:33 Neutrophils # (1.3-7.7) k/uL Lymphocytes # (1.0-4.8) k/uL PT 27.0 H (9.0-12.0) sec INR 3.0 H (<1.2) Potassium 3.4 L (3.5-5.1) mmol/L Chloride 94 L (98-107) mmol/L Carbon Dioxide 36 H (22-30) mmol/L BUN 26 H (7-17) mg/dL Glucose 132 H (74-99) mg/dL POC Glucose (mg/dL) 115 H (75-99) mg/dL 10/02/17 Range/Units 17:07 Neutrophils # (1.3-7.7) k/uL Lymphocytes # (1.0-4.8) k/uL PT (9.0-12.0) sec INR (<1.2) Potassium (3.5-5.1) mmol/L Chloride (98-107) mmol/L Carbon Dioxide (22-30) mmol/L BUN (7-17) mg/dL Glucose (74-99) mg/dL POC Glucose (mg/dL) 143 H (75-99) mg/dL Microbiology - Last 24 Hours (Table) 09/27/17 06:32 Blood Culture - Preliminary Blood No Growth after 120 hours Assessment and Plan Assessment: 1 acute COPD exacerbation with secondary acute hypercapnic respiratory failure 2 CHF with diastolic dysfunction, 3 severe mitral stenosis with previous valvuloplasty. The patient was being contemplated for mitral valve replacement. She has severe pulmonary hypertension with a PA pressure estimated to be in the mid 70s. 4 chronic atrial fibrillation, CVR controlled 5 CVA/TIA, history of 6 severe pulmonary hypertension with a right ventricular systolic pressure of 71.9 mmHg 7 hypertension Plan: Continue current medication regime,monitoring and symptomatic treatment. Additional Lasix today as per pulmonary, Wheezing improving. Smoking cessation readdressed. Discharge planning in progress for tomorrow. The impression and plan of care has been dictated as directed. : I performed a history and examination of this patient, discussed the same with the dictator. I agree with the dictator's note ,documented as a scribe. Any additional findings or plans will be noted.
== END 2017-10-03 16:58 | disposition home health service (06) | DRG 190 ==
LOC: EC 06:00 → 4MS4W 07:25
PROVIDERS: ADMIT Family Medicine; ATTEND Family Medicine
DX: J44.0 Chronic obstructive pulmonary disease with (acute) lower respiratory infection (principal); J96.02 Acute respiratory failure with hypercapnia; I27.20 Pulmonary hypertension, unspecified; I48.1 Persistent atrial fibrillation; I48.92 Unspecified atrial flutter; I50.32 Chronic diastolic (congestive) heart failure; I69.354 Hemiplegia and hemiparesis following cerebral infarction affecting left non-dominant side; I08.1 Rheumatic disorders of both mitral and tricuspid valves; I11.0 Hypertensive heart disease with heart failure; E78.5 Hyperlipidemia, unspecified; J44.1 Chronic obstructive pulmonary disease with (acute) exacerbation; F17.200 Nicotine dependence, unspecified, uncomplicated; I25.10 Atherosclerotic heart disease of native coronary artery without angina pectoris; I25.2 Old myocardial infarction; I48.2 Chronic atrial fibrillation; R09.02 Hypoxemia; Z79.01 Long term (current) use of anticoagulants; Z79.51 Long term (current) use of inhaled steroids; Z79.899 Other long term (current) drug therapy; Z82.49 Family history of ischemic heart disease and other diseases of the circulatory system; Z87.01 Personal history of pneumonia (recurrent); Z91.14 Patient's other noncompliance with medication regimen; Z91.19 Patient's noncompliance with other medical treatment and regimen; Z95.2 Presence of prosthetic heart valve; Z79.891 Long term (current) use of opiate analgesic; Z88.6 Allergy status to analgesic agent; Z88.1 Allergy status to other antibiotic agents; Z88.2 Allergy status to sulfonamides; F32.9 Major depressive disorder, single episode, unspecified; R33.9 Retention of urine, unspecified; J20.9 Acute bronchitis, unspecified; K08.9 Disorder of teeth and supporting structures, unspecified
CPT/HCPCS: 36415; 71045; 71046; 80048; 80053; 81001; 82550; 82553; 83036; 83735; 83880; 84484; 85025; 85610; 85730; 87040; 87086; 93005; 94640; 94644; 94760; 96365; 96366; 96375; 99285

== ENCOUNTER → 2018-01-12 | Outpatient (CLI) | payer MEDICARE ==
[2018-01-12 09:43] LABS: HCT 40.6 % (34.0-46.0); HGB 13.7 gm/dL (11.4-16.0); MCH 29.9 pg (25.0-35.0); MCHC 33.7 g/dL (31.0-37.0); MCV 88.8 fL (80.0-100.0); Mean Platelet Volume 7.6; Platelet Count 285 k/uL (150-450); RBC 4.58 m/uL (3.80-5.40); RDW 14.6 % (11.5-15.5); WBC 7.3 k/uL (3.8-10.6)
[2018-01-12 09:50] LABS: INR 1.2 (<1.2); Partial Thromboplastin Time 24.5 sec (22.0-30.0); Prothrombin Time 11.3 sec (9.0-12.0)
[2018-01-12 09:56] LABS: ALT 19 U/L (9-52); AST 26 U/L (14-36); Albumin 4.1 g/dL (3.5-5.0); Alkaline Phosphatase 142 U/L (38-126); Anion Gap 14 mmol/L; Blood Urea Nitrogen 19 mg/dL (7-17); Calcium 9.2 mg/dL (8.4-10.2); Carbon Dioxide 28 mmol/L (22-30); Chloride 103 mmol/L (98-107); Cholesterol 230 mg/dL (<200); Glucose 100 mg/dL (74-99); HDL Cholesterol 59 mg/dL (40-60); LDL Cholesterol,Calculated 126 mg/dL (0-99); Potassium 3.8 mmol/L (3.5-5.1); Sodium 145 mmol/L (137-145); Total Bilirubin 0.6 mg/dL (0.2-1.3); Total Protein 6.8 g/dL (6.3-8.2); Triglycerides 224 mg/dL (<150)
[2018-01-12 10:55] LABS: T4, Free (Free Thyroxine) 0.86 ng/dL (0.78-2.19)
--- NOTE | 2018-01-12 11:52 | XR ---
EXAMINATION TYPE: XR chest 2V DATE OF EXAM: 01/12/2018 COMPARISON: 10/26/2017 HISTORY: Shortness of breath TECHNIQUE: Frontal and lateral views of the chest are obtained. FINDINGS: Scattered senescent parenchymal changes noted. Hyperinflation compatible with COPD. No evidence for infiltrate. No evidence for atelectasis. Heart size is enlarged. Mediastinal structures are stable and grossly unremarkable. No evidence for hilar prominence. Degenerative changes dorsal spine. IMPRESSION: 1. No evidence for acute pulmonary disease.
[2018-01-12 12:09] LABS: Appearance,Urine Cloudy (Clear); Bacteria,Urine Rare /hpf; Bilirubin,Urine Negative (Negative); Blood,Urine Trace (Negative); Color,Urine Yellow; Glucose,Urine (UA) Negative (Negative); Ketones,Urine Negative (Negative); Leukocyte Esterase,Urine Large (Negative); Nitrite,Urine Negative (Negative); Protein,Urine Trace (Negative); RBC,Urine 3 /hpf (0-5); Specific Gravity,Urine 1.015 (1.001-1.035); Squamous Epithelial Cell,Urine 13 /hpf (0-4); WBC,Urine >182 /hpf (0-5)
[2018-01-12 17:20] LABS: Hepatitis A Antibody IgM Non-Reactive (Non-Reactive)
[2018-01-12 18:38] LABS: Hepatitis B Core IgM Non-Reactive (Non-Reactive)
[2018-01-12 18:49] LABS: Hemoglobin A1C 5.1 % (4.0-6.0)
--- NOTE | 2018-01-16 11:47 | P.PN ---
Progress Note - Text Progress Note Date: 01/12/18 5 meter walk completed 01/12/18 #1 6.69 sec #2 4.83 sec #3 4.86 sec
== END | disposition home or self-care (01) ==
LOC: LABPAT 08:36
PROVIDERS: ATTEND Thoracic Surgery (Cardiothoracic Vascular Surgery)
DX: Z01.810 Encounter for preprocedural cardiovascular examination (principal); R94.31 Abnormal electrocardiogram [ECG] [EKG]; I48.91 Unspecified atrial fibrillation; J44.9 Chronic obstructive pulmonary disease, unspecified; I50.9 Heart failure, unspecified; I25.10 Atherosclerotic heart disease of native coronary artery without angina pectoris; E78.5 Hyperlipidemia, unspecified; I07.1 Rheumatic tricuspid insufficiency; I05.0 Rheumatic mitral stenosis; Z01.812 Encounter for preprocedural laboratory examination
CPT/HCPCS: 36415; 71046; 80053; 80061; 80074; 81001; 83036; 83735; 83880; 84439; 84443; 84484; 85027; 85610; 85730; 87070; 87086; 93005; 93970

== ENCOUNTER 2018-01-18 05:54 | Inpatient (IN) | payer MEDICARE ==
[~2018-01-18 05:54] MED LIST: ALBUMIN HUMAN 25% 50 ML IV ONE; ALBUMIN HUMAN 5% 500 ML IVPB ONE; ASPIRIN 325 MG TAB PO ONE; CALCIUM CHLORIDE 100 MG/ML 10 ML SYRINGE IV ONE; CHLORHEXIDINE GLUCONATE 15 ML CUP MUCOUS MEM ONE; CLEVIDIPINE BUTYRATE 25 MG in EMPTY BAG 1 BAG IV ONE; DEXTROSE 5% IN WATER 1,000 ML with POTASSIUM CHLORIDE 110 MEQ, MAGNESIUM SULFATE 16 MEQ... IV ONE; DEXTROSE 5% IN WATER 1,000 ML with POTASSIUM CHLORIDE 25 MEQ, SODIUM CHLORIDE 2.5MEQ/ML... IV ONE; HEPARIN SODIUM 1,000 UN/ML (10ML VL) IV ONE; HEPARIN SODIUM,PORCINE 5,000 UNIT in SODIUM CHLORIDE 0.9% 500 ML IV ONE; INSULIN REGULAR 100 UNIT in SODIUM CHLORIDE 0.9% 100 ML IV ONE; MAGNESIUM SULFATE MG 500 MG/ML VIAL IV ONE; MANNITOL 25% 12.5 GM/50 ML VIAL IV ONE; MUPIROCIN 2% OINT 22 GM TUBE NASAL ONE; NITROGLYCERIN-D5W PMX 25 MG/250 ML BTL IV ONE; NITROGLYCERIN-D5W PMX 50 MG in DEXTROSE/WATER 1 250ML.BAG IV ONE; NOREPINEPHRIN 4 MG-0.9% NS PMX 4 MG/250 ML ML IV ONE; PHENYLEPHRINE 40 MG in SODIUM CHLORIDE 0.9% 250 ML IV ONE; PHENYLEPHRINE-0.9% NACL SYG 1 MG/10 ML SYRINGE IV ONE; PROPOFOL 1,000 MG/100 ML VIAL IV ONE; PROTAMINE SULFATE 10 MG/ML 25 ML VIAL IV ONE; PROTAMINE SULFATE 250 MG in EMPTY BAG 1 BAG IV ONE; SODIUM BICARB 8.4% 50 ML SYR (1 MEQ/ML) IV ONE; TRANEXAMIC ACID 2,000 MG in SODIUM CHLORIDE 0.9% 180 ML IV ONE; ceFAZolin 1,000 MG in SODIUM CHLORIDE 0.9% IRRIGATIO 1,000 ML IRRIGATION ONE; ceFAZolin 2,000 MG in SODIUM CHLORIDE 0.9% 30 ML IVPB ONE
[2018-01-18] MEDS: ATORVASTATIN 10 MG TAB PO ONE ×2 (06:40→13:27)
[2018-01-18] MEDS: METOPROLOL TARTRATE 12.5 MG TAB PO ONE ×2 (06:42→13:27)
[2018-01-18 06:56] LABS: Glucose,Whole Blood 97 mg/dL (75-99)
[2018-01-18] MEDS ORDERED: ePHEDrine SULFATE/0.9% NACL/PF 50 MG/5 ML SYRINGE IV ONE (08:16)
[2018-01-18] MEDS ORDERED: LACTATED RINGERS 1,000 ML BAG IV ONE (08:16)
[2018-01-18] MEDS ORDERED: ELECTROLYTE-R (PH 7.4) 1,000 ML IV.SOLN IV ONE (08:16)
[2018-01-18] MEDS ORDERED: fentaNYL (PF) 50 MCG/ML 50 ML VIAL ONE (08:16)
[2018-01-18] MEDS ORDERED: PHENYLEPHRINE-0.9% NACL SYG 1 MG/10 ML SYRINGE ONE (08:16)
[2018-01-18] MEDS ORDERED: PROTAMINE SULFATE 10 MG/ML 25 ML VIAL IV ONE (08:16)
[2018-01-18] MEDS ORDERED: PROPOFOL 10 MG/ML 20 ML VIAL IV ONE (08:16)
[2018-01-18] MEDS ORDERED: SODIUM CHLORIDE 0.9% 250 ML BAG ONE (08:16)
[2018-01-18] MEDS ORDERED: TRANEXAMIC ACID 1,000 MG/10 ML VIAL ONE (08:16)
[2018-01-18] MEDS ORDERED: LIDOCAINE 1% INJ 10MG/ML (20 ML MDV) ONE (08:16)
[2018-01-18] MEDS ORDERED: ALBUMIN HUMAN 5% 250 ML BOTTLE IVPB ONE (08:16)
[2018-01-18] MEDS ORDERED: MIDAZOLAM 2 MG/2 ML VIAL ONE (08:16)
[2018-01-18] MEDS ORDERED: VECURONIUM 10 MG VIAL IV ONE (08:16)
[2018-01-18] MEDS ORDERED: SUCCINYLCHOLINE CHLORIDE 100 MG/5 ML SYR IV ONE (08:16)
[2018-01-18] MEDS ORDERED: HEPARIN SODIUM,PORCINE 10,000 UNIT/ML 1 ML VIAL ONE (08:16)
[2018-01-18] MEDS ORDERED: ceFAZolin 1,000 MG VIAL ONE (08:16)
[2018-01-18 08:18] LABS: INR 1.1 (<1.2); Prothrombin Time 10.4 sec (9.0-12.0)
[2018-01-18 09:00] LABS: ABG Base Excess 2.4 mmol/L; ABG HCO3 26 mmol/L (21-25); ABG PCO2 37 mmHg (35-45); ABG PH 7.46 (7.35-7.45); ABG PO2 175 mmHg (83-108); ABG Potassium Whole Blood 3.8 mmol/L (3.4-4.5); ABG Sodium Whole Blood 140 mmol/L (135-146); ABG TCO2 27 mmol/L (19-24)
[2018-01-18 09:37] LABS: ABG Base Excess 1.7 mmol/L; ABG HCO3 25 mmol/L (21-25); ABG PCO2 36 mmHg (35-45); ABG PH 7.46 (7.35-7.45); ABG PO2 201 mmHg (83-108); ABG Potassium Whole Blood 3.5 mmol/L (3.4-4.5); ABG Sodium Whole Blood 140 mmol/L (135-146); ABG TCO2 27 mmol/L (19-24)
[2018-01-18 10:12] LABS: ABG Base Excess -0.1 mmol/L; ABG HCO3 26 mmol/L (21-25); ABG PCO2 45 mmHg (35-45); ABG PH 7.36 (7.35-7.45); ABG PO2 332 mmHg (83-108); ABG Potassium Whole Blood 4.2 mmol/L (3.4-4.5); ABG Sodium Whole Blood 135 mmol/L (135-146); ABG TCO2 27 mmol/L (19-24)
[2018-01-18 10:39] LABS: ABG Base Excess 0.8 mmol/L; ABG HCO3 26 mmol/L (21-25); ABG PCO2 41 mmHg (35-45); ABG PH 7.41 (7.35-7.45); ABG PO2 305 mmHg (83-108); ABG Potassium Whole Blood 4.1 mmol/L (3.4-4.5); ABG Sodium Whole Blood 138 mmol/L (135-146); ABG TCO2 27 mmol/L (19-24)
[2018-01-18 11:12] LABS: ABG Base Excess -0.6 mmol/L; ABG HCO3 25 mmol/L (21-25); ABG PCO2 45 mmHg (35-45); ABG PH 7.36 (7.35-7.45); ABG PO2 366 mmHg (83-108); ABG Potassium Whole Blood 4.3 mmol/L (3.4-4.5); ABG Sodium Whole Blood 139 mmol/L (135-146); ABG TCO2 26 mmol/L (19-24)
[2018-01-18 12:17] LABS: ABG Base Excess 0.9 mmol/L; ABG HCO3 26 mmol/L (21-25); ABG Oxygen Saturation 98.6 % (94-97); ABG PCO2 43 mmHg (35-45); ABG PH 7.39 (7.35-7.45); ABG PO2 114 mmHg (83-108); ABG Potassium Whole Blood 3.9 mmol/L (3.4-4.5); ABG Sodium Whole Blood 142 mmol/L (135-146); ABG TCO2 27 mmol/L (19-24)
[2018-01-18] MEDS ORDERED: ALBUMIN HUMAN 5% 250 ML IVPB ONE ×2 (12:34→13:28)
[2018-01-18] MEDS ORDERED: Phosphorus Replacement Protoco 1 EACH MISC MISCELLANE PRN (13:06)
[2018-01-18] MEDS ORDERED: BENZOCAINE/MENTHOL LOZENG 1 EACH LOZENGE MUCOUS MEM PRN (13:06)
[2018-01-18] MEDS ORDERED: PROPOFOL 1,000 MG in EMPTY BAG 1 BAG IV SCH (13:06)
[2018-01-18] MEDS ORDERED: INSULIN REGULAR 100 UNIT in SODIUM CHLORIDE 0.9% 100 ML IV SCH (13:06)
[2018-01-18] MEDS ORDERED: ONDANSETRON 4 MG/2 ML VIAL IVP PRN (13:06)
[2018-01-18] MEDS ORDERED: Magnesium Replacement Protocol 1 EACH MISC MISCELLANE PRN (13:06)
[2018-01-18] MEDS ORDERED: CALCIUM GLUCONATE 2,000 MG in SODIUM CHLORIDE 0.9% 100 ML IVPB PRN (13:06)
[2018-01-18] MEDS ORDERED: METOCLOPRAMIDE 5 MG/ML 2 ML VIAL IVP PRN (13:06)
[2018-01-18] MEDS ORDERED: Potassium Replacement Protocol 1 EACH MISC MISCELLANE PRN (13:06)
[2018-01-18 13:08] LABS: Glucose,Whole Blood 124 mg/dL (75-99)
--- NOTE | 2018-01-18 13:11 | OP ---
OPERATIVE REPORT DATE OF THE OPERATION: 01/18/2018. ATTENDING SURGEON: Dr. Dominic Ibrahim. ASSIST: Nas Kendall and Destini Betancourt PA-C. PREOPERATIVE DIAGNOSES: 1. Severe mitral stenosis. 2. Moderate to severe tricuspid regurgitation. 3. Long-standing atrial fibrillation. POSTOPERATIVE DIAGNOSES: 1. Severe mitral stenosis. 2. Moderate to severe tricuspid regurgitation. 3. Longstanding atrial fibrillation. PROCEDURES: 1. Mitral valve replacement with a #31-33 on X mechanical mitral valve. 2. Tricuspid valve repair with a #32 mm MC 3 tricuspid ring. 3. Clip ligation of left atrial appendage with a #32 x 45 mm AtriClip. 4. Intraoperative JACLYN. ANESTHESIA: General. BLOOD LOSS: 500 mL. SUMMARY: The patient brought to the operating room and placed in supine position. After administration of general endotracheal anesthetic, placement of a Shell-See catheter, arterial line adequate IV access, Owusu catheter, patient carefully prepped and draped in normal sterile fashion using Betadine paint and sterile towels. A midline incision to the chest made, sternum divided. Pericardium was opened. Heart size was enlarged. The aorta was soft. The patient was heparinized, . The aorta and vena cava were cannulated. Antegrade and retrograde cardioplegic catheters were positioned in the ascending aorta and the coronary sinus. The patient was placed on bypass cross-clamp placed. The heart arrested with followed by 500 mL retrograde cardioplegia. Retrograde cardioplegia was delivered 3-500 mL at the end of each 20 minutes interval. First the left atrium was entered at the junction of the right superior pulmonary vein. Prior to this, the base of the left atrial appendage was measured and measured to a 35 mm AtriClip. The clip was opened, brought into the field, opened, secured at the base, officially obliterating the left atrial appendage. Next, attention was directed inside the left atrium to the mitral valve. There was a classic fishmouth mitral valve consistent with mitral stenosis. The mitral valve was excised down to the heavily calcified thickened chordae down to the tip of the papillary muscle. At this point, the mitral valve with thickened chordae were then carefully excised and sent to pathology. At this point, there was no need to resuspend the papillary muscles as both posterior papillary muscles were already still kind of adhesed to the lateral wall and distal to the anulus. It then sized to a 31/33 on-X mechanical mitral valve. The valve was brought into the field as 2-0 Tycron pledgeted sutures were placed circumferentially atrially based in an everting fashion. These were then passed through the cuff of the mechanical valve which was seated and seated well. All sutures were then secured using the core knot ligature system. It was then irrigated out again copiously with 2 L of cold saline and the atrium was closed in a double layered pledget of 4-0 Prolene vertical mattress followed by an over- end over stitch. Please make note that the button of the previous ASD closure in the left atrial side was intact. Next, both caval snares were snared down and the right atrium was opened horizontally and at this point, the tricuspid valve was identified. Tricuspid valve was identified. The subvalvular apparatus appeared to be within normal limits and appeared to have a dilated anulus. 2-0 Tycron non pledgeted sutures were placed along the anulus except at the area of the bundle of Hiss. It sized to a 32 mm MC 3 ring. Tricuspid ring. The ring was brought into the field. All sutures passed through the ring. The ring was then seated, seated well and all sutures were secured and tied down using the core knot ligature system. At this point, the atrium was then closed in a double layered pledgeted 4 Prolene vertical mattress followed by an over- end over stitch on both sides. The button of the ASD closure appeared to be within normal limits. MMODL / IJN: [id number] /
[2018-01-18 13:17] LABS: Basophils # (A) 0.1 k/uL (0-0.2); Basophils % (A) 0 %; Eosinophils # (A) 0.1 k/uL (0-0.7); Eosinophils % (A) 1 %; HCT 30.8 % (34.0-46.0); Lymphocytes # (A) 1.1 k/uL (1.0-4.8); Lymphocytes % (A) 8 %; MCH 29.5 pg (25.0-35.0); MCHC 33.2 g/dL (31.0-37.0); MCV 88.7 fL (80.0-100.0); Mean Platelet Volume 8.7; Monocytes # (A) 0.8 k/uL (0-1.0); Monocytes % (A) 6 %; Neutrophils # (A) 11.7 k/uL (1.3-7.7); Neutrophils % (A) 85 %; Platelet Count 180 k/uL (150-450); RBC 3.47 m/uL (3.80-5.40); RDW 14.6 % (11.5-15.5); WBC 13.8 k/uL (3.8-10.6)
[2018-01-18 13:25] LABS: ABG Base Excess -0.5 mmol/L; ABG HCO3 26 mmol/L (21-25); ABG Oxygen Saturation 99.5 % (94-97); ABG PCO2 54 mmHg (35-45); ABG PH 7.29 (7.35-7.45); ABG PO2 180 mmHg (83-108); ABG TCO2 28 mmol/L (19-24)
[2018-01-18 13:28] LABS: INR 1.2 (<1.2); Prothrombin Time 11.7 sec (9.0-12.0)
[2018-01-18] MEDS: LACTATED RINGERS 1,000 ML IV SCH (13:29)
[2018-01-18 13:32] LABS: HGB 10.2 gm/dL (11.4-16.0)
[2018-01-18 13:33] LABS: Ionized Calcium 4.7 mg/dL (4.5-5.3)
--- NOTE | 2018-01-18 13:37 | XR ---
EXAMINATION TYPE: XR chest 1V portable DATE OF EXAM: 01/18/2018 COMPARISON: 01/12/2018 HISTORY: Post cardiac surgery. TECHNIQUE: Single frontal view of the chest is obtained. FINDINGS: Right-sided Ambrose-See catheter terminates in the pulmonary outflow tract region. Median st ernotomy wires, mediastinal clips, prosthetic cardiac valve, aortic closure device, and right upper q uadrant surgical clips are noted. Mediastinal drains are present in the midline. Enteric tube courses beyond the distal [id number] and was appropriately placed. Endotracheal tube terminates at the le leticia of the aortic arch, also appropriately placed. Epicardial pacing leads are noted. Cardiac silhoue tte is enlarged. Scattered areas of linear subsegmental atelectasis are platelike and seen peripherally. New opacity i s seen in the retrocardiac airspace and blunting the right costophrenic angle. There appears to be mi ld generalized osseous demineralization. IMPRESSION: 1. Lines and tubes as described above. 2. New small left and trace right pleural effusions and scattered platelike subsegmental atelectasis.
[2018-01-18] MEDS: CLEVIDIPINE BUTYRATE 25 MG in EMPTY BAG 1 BAG IV SCH (13:40)
[2018-01-18] MEDS: NITROGLYCERIN-D5W PMX 50 MG in DEXTROSE/WATER 1 250ML.BAG IV SCH (13:41)
[2018-01-18 13:43] LABS: ALT 43 U/L (9-52); AST 170 U/L (14-36); Alkaline Phosphatase 109 U/L (38-126); Anion Gap 9 mmol/L; Blood Urea Nitrogen 12 mg/dL (7-17); Carbon Dioxide 27 mmol/L (22-30); Chloride 106 mmol/L (98-107); Glucose 101 mg/dL (74-99); Potassium 3.8 mmol/L (3.5-5.1); Sodium 142 mmol/L (137-145)
[2018-01-18] MEDS: ALBUMIN HUMAN 5% 250 ML in EMPTY BAG 1 BAG IVPB PRN ×3 (13:51→15:30)
[2018-01-18] MEDS: MILRINONE-D5W PMX 20 MG in DEXTROSE/WATER 1 100ML.BAG IV SCH (13:53)
[2018-01-18 14:13] LABS: Glucose,Whole Blood 106 mg/dL (75-99)
[2018-01-18] MEDS: NOREPINEPHRINE 4 MG in SODIUM CHLORIDE 0.9% 250 ML IV SCH (14:31)
[2018-01-18 15:12] LABS: Glucose,Whole Blood 160 mg/dL (75-99)
[2018-01-18] MEDS: IPRATROPIUM-ALBUTEROL 3 ML NEB INHALATION SCH ×2 (15:31→19:39)
[2018-01-18 16:06] LABS: Glucose,Whole Blood 126 mg/dL (75-99)
[2018-01-18 16:34] LABS: Basophils % (A) 0 %; Eosinophils # (A) 0.1 k/uL (0-0.7); Eosinophils % (A) 1 %; HCT 23.1 % (34.0-46.0); Lymphocytes # (A) 0.6 k/uL (1.0-4.8); Lymphocytes % (A) 4 %; MCH 29.7 pg (25.0-35.0); MCHC 33.2 g/dL (31.0-37.0); MCV 89.5 fL (80.0-100.0); Mean Platelet Volume 10.9; Monocytes # (A) 0.9 k/uL (0-1.0); Monocytes % (A) 7 %; Neutrophils # (A) 11.8 k/uL (1.3-7.7); Neutrophils % (A) 88 %; Platelet Count 185 k/uL (150-450); RBC 2.58 m/uL (3.80-5.40); RDW 14.8 % (11.5-15.5); WBC 13.4 k/uL (3.8-10.6)
[2018-01-18 16:40] LABS: HGB 7.7 gm/dL (11.4-16.0)
[2018-01-18] MEDS: ceFAZolin IN SWFI 2 GM/20 ML SYRINGE IVP SCH ×2 (16:45→23:21)
[2018-01-18 17:02] LABS: Glucose,Whole Blood 131 mg/dL (75-99)
[2018-01-18] MEDS: ACETAMINOPHEN IV (For NPO) 1,000 MG in EMPTY BAG 1 BAG IVPB SCH ×2 (17:25→23:21)
[2018-01-18 17:41] LABS: Anion Gap 15 mmol/L; Blood Urea Nitrogen 14 mg/dL (7-17); Calcium 8.1 mg/dL (8.4-10.2); Carbon Dioxide 26 mmol/L (22-30); Chloride 104 mmol/L (98-107); Glucose 131 mg/dL (74-99); Magnesium 2.7 mg/dL (1.6-2.3); Phosphorus 4.8 mg/dL (2.5-4.5); Potassium 4.6 mmol/L (3.5-5.1); Sodium 145 mmol/L (137-145)
[2018-01-18 18:03] LABS: Glucose,Whole Blood 138 mg/dL (75-99)
--- NOTE | 2018-01-18 18:12 | P.CONS ---
History of Present Illness - Reason for Consult COPD, mitral stenosis post valve replacement. - History of Present Illness Patient 62-year-old female admitted for elective mitral valve replacement patient underwent mechanical mitral valve replacement with tricuspid valve repair patient is presently intubated. Chest x-ray looks good patient is on basic vent setting will be extubated today patient is on propofol drip which will be soon tapered off patient has mediastinal chest tube, is on milrinone, levo fed has a Mendon-See in place. Gestation is showing trace pleural effusions and atelectasis no other significant abdominal was appreciated. Pulmonary wedge pressures are bit elevated. Review of Systems Unable to obtain Past Medical History Past Medical History: Atrial Fibrillation, Coronary Artery Disease (CAD), Heart Failure, COPD, CVA/TIA, Hyperlipidemia, Hypertension, Myocardial Infarction (SD) , Osteoarthritis (OA), Pneumonia Additional Past Medical History / Comment(s): Steroids Oct 2017,DDD,chronic back pain, urinary incontience, pne multiple times and once being sepsic and on vent for 4 months at [place], incont of urine/wears breif. emphysema, bronchits ,,per pt's daughter- issue w/ shuffling gait won't life her feet when she walk, uses cane when up, mitral valve heart disease-valve stenosis/regurg/previous valvuloplasty 2012/asd closure Last Myocardial Infarction Date:: History of Any Multi-Drug Resistant Organisms: None Reported Past Surgical History: Adenoidectomy, Cholecystectomy, Heart Catheterization, Orthopedic Surgery, Tonsillectomy Additional Past Surgical History / Comment(s): bilateral hands, ankle, D and C d /t miscarriage,previously charted- mitral valvuloplasty/asd closure, orif rt ankle, micheal carpal tunnel Past Anesthesia/Blood Transfusion Reactions: No Reported Reaction Smoking Status: Current some day smoker - Past Family History Mother Family Medical History: Dementia Additional Family Medical History / Comment(s): at age 84 from dementia and blood infection Father Family Medical History: Congestive Heart Failure (CHF), Myocardial Infarction ( SD) Additional Family Medical History / Comment(s): heart failure, from heart attack at 74 in 1999 Sister(s) Family Medical History: No Reported History Additional Family Medical History / Comment(s): from car accident Medications and Allergies Home Medications Medication Instructions Recorded Confirmed Type Digoxin [Lanoxin] 125 mcg PO DAILY 05/22/17 01/18/18 History Loratadine [Claritin] 10 mg PO DAILY 05/22/17 01/18/18 History Budesonide-Formot 160-4.5 Mcg 2 puff INHALATION RT-BID #1 inh 07/16/17 01/18/18 Rx [Symbicort 160-4.5 Mcg Inhaler] Furosemide [Lasix] 40 mg PO DAILY 09/01/17 01/18/18 History Ipratropium-Albuterol Nebulize 3 ml INHALATION RT-QID #120 09/06/17 01/18/18 Rx [Duoneb 0.5 mg-3 mg/3 ml Soln] ampul.neb Alendronate Sodium [Fosamax] 70 mg PO DAVIS 09/17/17 01/18/18 History Escitalopram [Lexapro] 10 mg PO HS 09/17/17 01/18/18 History Metoprolol Tartrate [Lopressor] 25 mg PO DAILY 09/17/17 01/18/18 History Oxybutynin Xl [Ditropan XL] 5 mg PO DAILY 09/17/17 01/18/18 History Pantoprazole Sodium [Protonix] 40 mg PO QAM 09/17/17 01/18/18 History Acetaminophen Tab [Tylenol] 500 mg PO Q6HR PRN tab 09/22/17 01/18/18 Rx Warfarin [Coumadin] 1 mg PO HS tab 10/03/17 01/18/18 Rx Albuterol Inhaler [Ventolin Hfa 1 - 2 puff INHALATION RT-BID 01/13/18 01/18/18 History Inhaler] Mupirocin 2% Nasal Oint [Bactroban 1 applic NASAL BID 01/13/18 01/18/18 History 2% Nasal Oint] Ondansetron Odt [Zofran Odt] 8 mg PO Q12HR PRN 01/13/18 01/18/18 History clonazePAM [Klonopin ODT Wafer] 0.25 mg PO BID 01/13/18 01/18/18 History Aspirin EC [Ecotrin Low Dose] 324 mg PO ONCE 01/18/18 01/18/18 History Allergies Allergy/AdvReac Type Severity Reaction Status Date / Time ciprofloxacin [From Cipro] Allergy Rash/Hives Verified 01/18/18 13:03 Sulfa (Sulfonamide Allergy Rash/Hives Verified 01/18/18 13:03 Antibiotics) tramadol [From [facility]] AdvReac Rash/Hives Verified 01/18/18 13:03 Physical Exam Vitals: Vital Signs Temp Pulse Pulse Pulse Resp BP BP 01/18/18 15:56 59 L 01/18/18 15:36 59 L 01/18/18 15:13 97.2 F L 59 L 16 91/49 01/18/18 14:49 96.8 F L 59 L 16 88/49 01/18/18 14:47 96.8 F L 60 16 87/49 01/18/18 14:27 69.3 F L 59 L 16 100/56 01/18/18 14:20 96.8 F L 59 L 16 86/48 01/18/18 14:00 59 L 17 01/18/18 13:57 95.5 F L 60 16 01/18/18 13:50 60 12 01/18/18 13:48 95.4 F L 60 16 01/18/18 13:40 60 16 01/18/18 13:30 60 16 01/18/18 13:20 60 14 01/18/18 13:10 59 L 13 01/18/18 13:06 01/18/18 13:00 95.4 F L 60 60 10 L 01/18/18 06:36 97.6 F 63 18 118/71 BP BP Pulse Ox 01/18/18 15:56 01/18/18 15:36 01/18/18 15:13 100 01/18/18 14:49 100 01/18/18 14:47 01/18/18 14:27 100 01/18/18 14:20 01/18/18 14:00 98 01/18/18 13:57 104/56 100 01/18/18 13:50 100 01/18/18 13:48 88/47 100 01/18/18 13:40 99 01/18/18 13:30 100 01/18/18 13:20 100 01/18/18 13:10 100 01/18/18 13:06 100 01/18/18 13:00 122/60 100 01/18/18 06:36 116/61 96 Intake and Output 01/18/18 01/18/18 01/18/18 06:59 14:59 22:59 Intake Total 655.572 308.546 Output Total 2926 130 Balance -2270.428 178.546 Intake: IV 30 Intake, IV Titration 50.572 0.546 Amount Insulin Regular 100 unit 0.546 In Sodium Chloride 0.9% 100 ml @ Per Protocol IV .Q0M JUAN A Rx#:[id number] Lactated Ringers 1,000 ml 50 @ 50 mls/hr IV .Q20H JUAN A Rx#:[id number] Norepinephrine 4 mg In 0.572 Sodium Chloride 0.9% 250 ml @ Titrate IV .Q0M JUAN A Rx#:[id number] Blood Product 575 308 Ffp 24 Cpd Unit 0 308 [id number] Ffp 24 Cpd Unit 323 [id number] Platelet Pheresis Acda1 252 Unit [id number] Output: Chest Tube Drainage 400 130 Lt and [address]t [address] 400 130 Urine 1526 Estimated Blood Loss 1000 Other: Weight 63.1 kg ABP, PAP, CO, CI - Last 8 Hours Arterial Blood Pressure 108/58 Arterial Blood Pressure 107/60 Arterial Blood Pressure 89/48 Arterial Blood Pressure 85/46 Arterial Blood Pressure 101/55 Arterial Blood Pressure 94/52 Pulmonary Artery Pressure 80/40 Pulmonary Artery Pressure 63/33 Pulmonary Artery Pressure 61/30 Pulmonary Artery Pressure 55/28 Pulmonary Artery Pressure 60/33 Pulmonary Artery Pressure 65/30 Pulmonary Artery Pressure 61/34 Cardiac Output 3.9 Cardiac Output 3.9 Cardiac Output 3.9 Cardiac Index 2.4 PHYSICAL EXAMINATION: GENERAL: Intubated sedated sedation score of around 0-1, on propofol drip for above-mentioned drips chest tube in place Mendon-See in place HEENT: Pupils are round and equally reacting to light. EOMI. No scleral icterus. No conjunctival pallor. Normocephalic, atraumatic. No pharyngeal erythema. No thyromegaly. CARDIOVASCULAR: S1 and S2 present. No murmurs, rubs, or gallops. PULMONARY: Chest is clear to auscultation, no wheezing or crackles. ABDOMEN: Soft, nontender, nondistended, normoactive bowel sounds. No palpable organomegaly. MUSCULOSKELETAL: No joint swelling or deformity. EXTREMITIES: No cyanosis, clubbing, or pedal edema. NEUROLOGICAL: Gross neurological examination did not reveal any focal deficits. SKIN: No rashes. Results CBC & Chem 7: 01/18/18 16:20 01/18/18 16:20 Labs: Abnormal Lab Results - Last 24 Hours (Table) 01/12/18 01/18/18 01/18/18 Range/Units 08:44 09:00 09:36 WBC (3.8-10.6) k/uL RBC (3.80-5.40) m/uL Hgb (11.4-16.0) gm/dL Hct (34.0-46.0) % Neutrophils # (1.3-7.7) k/uL Lymphocytes # (1.0-4.8) k/uL INR (<1.2) ABG pH 7.46 H 7.46 H (7.35-7.45) ABG pCO2 (35-45) mmHg ABG pO2 175 H 201 H (83-108) mmHg ABG HCO3 26 H (21-25) mmol/L ABG Total CO2 27 H 27 H (19-24) mmol/L ABG O2 Saturation 100.0 H 100.0 H (94-97) % ABG Hematocrit (34.0-46.0) % ABG Ionized Calcium 4.4 L 4.4 L (4.5-5.3) mg/dL ABG Glucose 109 H (75-99) mg/dL ABG Lactic Acid 2.1 H 2.4 H* (0.5-1.6) mmol/L Hemoglobin (11.4-16.0) gm/dL Glucose (74-99) mg/dL POC Glucose (mg/dL) (75-99) mg/dL Calcium (8.4-10.2) mg/dL Phosphorus (2.5-4.5) mg/dL Magnesium (1.6-2.3) mg/dL AST (14-36) U/L Total Protein (6.3-8.2) g/dL Albumin (3.5-5.0) g/dL Arterial Blood Glucose 109 H (75-99) mg/dL Crossmatch See Detail 01/18/18 01/18/18 01/18/18 Range/Units 10:12 10:39 11:10 WBC (3.8-10.6) k/uL RBC (3.80-5.40) m/uL Hgb (11.4-16.0) gm/dL Hct (34.0-46.0) % Neutrophils # (1.3-7.7) k/uL Lymphocytes # (1.0-4.8) k/uL INR (<1.2) ABG pH (7.35-7.45) ABG pCO2 (35-45) mmHg ABG pO2 332 H 305 H 366 H (83-108) mmHg ABG HCO3 26 H 26 H (21-25) mmol/L ABG Total CO2 27 H 27 H 26 H (19-24) mmol/L ABG O2 Saturation 100.0 H 100.0 H 100.0 H (94-97) % ABG Hematocrit 28 L 30 L 30 L (34.0-46.0) % ABG Ionized Calcium 3.9 L 4.1 L 4.2 L (4.5-5.3) mg/dL ABG Glucose 202 H 172 H 155 H (75-99) mg/dL ABG Lactic Acid 2.4 H* 2.9 H* 3.7 H* (0.5-1.6) mmol/L Hemoglobin 9.2 L 9.8 L 9.7 L (11.4-16.0) gm/dL Glucose (74-99) mg/dL POC Glucose (mg/dL) (75-99) mg/dL Calcium (8.4-10.2) mg/dL Phosphorus (2.5-4.5) mg/dL Magnesium (1.6-2.3) mg/dL AST (14-36) U/L Total Protein (6.3-8.2) g/dL Albumin (3.5-5.0) g/dL Arterial Blood Glucose 202 H 172 H 155 H (75-99) mg/dL Crossmatch 01/18/18 01/18/18 01/18/18 Range/Units 12:17 13:00 13:00 WBC 13.8 H (3.8-10.6) k/uL RBC 3.47 L (3.80-5.40) m/uL Hgb 10.2 L D (11.4-16.0) gm/dL Hct 30.8 L (34.0-46.0) % Neutrophils # 11.7 H (1.3-7.7) k/uL Lymphocytes # (1.0-4.8) k/uL INR (<1.2) ABG pH (7.35-7.45) ABG pCO2 (35-45) mmHg ABG pO2 114 H (83-108) mmHg ABG HCO3 26 H (21-25) mmol/L ABG Total CO2 27 H (19-24) mmol/L ABG O2 Saturation 98.6 H (94-97) % ABG Hematocrit 33 L (34.0-46.0) % ABG Ionized Calcium (4.5-5.3) mg/dL ABG Glucose (75-99) mg/dL ABG Lactic Acid 1.9 H (0.5-1.6) mmol/L Hemoglobin 10.7 L (11.4-16.0) gm/dL Glucose 101 H (74-99) mg/dL POC Glucose (mg/dL) (75-99) mg/dL Calcium 8.0 L (8.4-10.2) mg/dL Phosphorus (2.5-4.5) mg/dL Magnesium 3.0 H (1.6-2.3) mg/dL AST 170 H (14-36) U/L Total Protein 5.0 L (6.3-8.2) g/dL Albumin 3.0 L (3.5-5.0) g/dL Arterial Blood Glucose (75-99) mg/dL Crossmatch 01/18/18 01/18/18 01/18/18 Range/Units 13:00 13:03 13:19 WBC (3.8-10.6) k/uL RBC (3.80-5.40) m/uL Hgb (11.4-16.0) gm/dL Hct (34.0-46.0) % Neutrophils # (1.3-7.7) k/uL Lymphocytes # (1.0-4.8) k/uL INR 1.2 H (<1.2) ABG pH 7.29 L (7.35-7.45) ABG pCO2 54 H (35-45) mmHg ABG pO2 180 H (83-108) mmHg ABG HCO3 26 H (21-25) mmol/L ABG Total CO2 28 H (19-24) mmol/L ABG O2 Saturation 99.5 H (94-97) % ABG Hematocrit (34.0-46.0) % ABG Ionized Calcium (4.5-5.3) mg/dL ABG Glucose (75-99) mg/dL ABG Lactic Acid (0.5-1.6) mmol/L Hemoglobin (11.4-16.0) gm/dL Glucose (74-99) mg/dL POC Glucose (mg/dL) 124 H (75-99) mg/dL Calcium (8.4-10.2) mg/dL Phosphorus (2.5-4.5) mg/dL Magnesium (1.6-2.3) mg/dL AST (14-36) U/L Total Protein (6.3-8.2) g/dL Albumin (3.5-5.0) g/dL Arterial Blood Glucose (75-99) mg/dL Crossmatch 01/18/18 01/18/18 01/18/18 Range/Units 14:04 15:10 16:04 WBC (3.8-10.6) k/uL RBC (3.80-5.40) m/uL Hgb (11.4-16.0) gm/dL Hct (34.0-46.0) % Neutrophils # (1.3-7.7) k/uL Lymphocytes # (1.0-4.8) k/uL INR (<1.2) ABG pH (7.35-7.45) ABG pCO2 (35-45) mmHg ABG pO2 (83-108) mmHg ABG HCO3 (21-25) mmol/L ABG Total CO2 (19-24) mmol/L ABG O2 Saturation (94-97) % ABG Hematocrit (34.0-46.0) % ABG Ionized Calcium (4.5-5.3) mg/dL ABG Glucose (75-99) mg/dL ABG Lactic Acid (0.5-1.6) mmol/L Hemoglobin (11.4-16.0) gm/dL Glucose (74-99) mg/dL POC Glucose (mg/dL) 106 H 160 H 126 H (75-99) mg/dL Calcium (8.4-10.2) mg/dL Phosphorus (2.5-4.5) mg/dL Magnesium (1.6-2.3) mg/dL AST (14-36) U/L Total Protein (6.3-8.2) g/dL Albumin (3.5-5.0) g/dL Arterial Blood Glucose (75-99) mg/dL Crossmatch 01/18/18 01/18/18 01/18/18 Range/Units 16:20 16:20 17:00 WBC 13.4 H (3.8-10.6) k/uL RBC 2.58 L (3.80-5.40) m/uL Hgb 7.7 L D (11.4-16.0) gm/dL Hct 23.1 L (34.0-46.0) % Neutrophils # 11.8 H (1.3-7.7) k/uL Lymphocytes # 0.6 L (1.0-4.8) k/uL INR (<1.2) ABG pH (7.35-7.45) ABG pCO2 (35-45) mmHg ABG pO2 (83-108) mmHg ABG HCO3 (21-25) mmol/L ABG Total CO2 (19-24) mmol/L ABG O2 Saturation (94-97) % ABG Hematocrit (34.0-46.0) % ABG Ionized Calcium (4.5-5.3) mg/dL ABG Glucose (75-99) mg/dL ABG Lactic Acid (0.5-1.6) mmol/L Hemoglobin (11.4-16.0) gm/dL Glucose 131 H (74-99) mg/dL POC Glucose (mg/dL) 131 H (75-99) mg/dL Calcium 8.1 L (8.4-10.2) mg/dL Phosphorus 4.8 H (2.5-4.5) mg/dL Magnesium 2.7 H (1.6-2.3) mg/dL AST (14-36) U/L Total Protein (6.3-8.2) g/dL Albumin (3.5-5.0) g/dL Arterial Blood Glucose (75-99) mg/dL Crossmatch 01/18/18 Range/Units 18:02 WBC (3.8-10.6) k/uL RBC (3.80-5.40) m/uL Hgb (11.4-16.0) gm/dL Hct (34.0-46.0) % Neutrophils # (1.3-7.7) k/uL Lymphocytes # (1.0-4.8) k/uL INR (<1.2) ABG pH (7.35-7.45) ABG pCO2 (35-45) mmHg ABG pO2 (83-108) mmHg ABG HCO3 (21-25) mmol/L ABG Total CO2 (19-24) mmol/L ABG O2 Saturation (94-97) % ABG Hematocrit (34.0-46.0) % ABG Ionized Calcium (4.5-5.3) mg/dL ABG Glucose (75-99) mg/dL ABG Lactic Acid (0.5-1.6) mmol/L Hemoglobin (11.4-16.0) gm/dL Glucose (74-99) mg/dL POC Glucose (mg/dL) 138 H (75-99) mg/dL Calcium (8.4-10.2) mg/dL Phosphorus (2.5-4.5) mg/dL Magnesium (1.6-2.3) mg/dL AST (14-36) U/L Total Protein (6.3-8.2) g/dL Albumin (3.5-5.0) g/dL Arterial Blood Glucose (75-99) mg/dL Crossmatch Assessment and Plan Plan: -Respiratory failure acute, hypoxic secondary to post cardiac surgery and mitral valve repair surgery postoperative day 0: Continue with the above- mentioned medications, these medications are being managed with cardio thoracic surgery. Patient is expected to be extubated today. -COPD patient is not wheezing at this point of time no further intervention at this point of time -Congestive heart failure chronic diastolic dysfunction without any acute exacerbation patient is not receiving any IV fluids at this point of time and continue to monitor for any heart failure exacerbation -Mitral stenosis status post mitral valve replacement as mentioned above -Atrial fibrillation patient will be resumed on anticoagulation with Coumadin whenever cardio thoracic surgery team 8 appropriate -CVA/TIA in the past -Hypertension
[2018-01-18 18:58] LABS: Glucose,Whole Blood 156 mg/dL (75-99)
[2018-01-18 19:03] LABS: Basophils % (A) 0 %; Eosinophils % (A) 0 %; HGB 7.3 gm/dL (11.4-16.0); Lymphocytes # (A) 0.4 k/uL (1.0-4.8); Lymphocytes % (A) 3 %; MCH 29.5 pg (25.0-35.0); MCHC 33.2 g/dL (31.0-37.0); MCV 88.8 fL (80.0-100.0); Mean Platelet Volume 10.6; Monocytes # (A) 0.8 k/uL (0-1.0); Monocytes % (A) 7 %; Neutrophils # (A) 10.7 k/uL (1.3-7.7); Neutrophils % (A) 89 %; Platelet Count 170 k/uL (150-450); RBC 2.48 m/uL (3.80-5.40); RDW 14.8 % (11.5-15.5)
[2018-01-18 19:47] LABS: Glucose,Whole Blood 154 mg/dL (75-99)
[2018-01-18 19:48] LABS: ABG HCO3 27 mmol/L (21-25); ABG PCO2 45 mmHg (35-45); ABG PH 7.39 (7.35-7.45); ABG PO2 73 mmHg (83-108); ABG TCO2 28 mmol/L (19-24)
[2018-01-18] MEDS: HEPARIN SODIUM,PORCINE 5,000 UNIT/ML 1 ML VIAL SQ SCH (20:34)
[2018-01-18] MEDS: IPRATROPIUM-ALBUTEROL 3 ML NEB INHALATION PRN (20:48)
[2018-01-18 21:13] LABS: Glucose,Whole Blood 134 mg/dL (75-99)
[2018-01-18] MEDS: MUPIROCIN 2% OINT 22 GM TUBE NASAL SCH (21:18)
[2018-01-18 22:01] LABS: Glucose,Whole Blood 118 mg/dL (75-99)
[2018-01-18 23:08] LABS: Glucose,Whole Blood 131 mg/dL (75-99)
[2018-01-18 23:59] LABS: Glucose,Whole Blood 140 mg/dL (75-99)
[2018-01-19 01:13] LABS: Glucose,Whole Blood 155 mg/dL (75-99)
[2018-01-19 02:01] LABS: Glucose,Whole Blood 140 mg/dL (75-99)
[2018-01-19 04:47] LABS: Glucose,Whole Blood 132 mg/dL (75-99)
[2018-01-19 04:57] LABS: Basophils % (A) 0 %; Eosinophils % (A) 0 %; HCT 22.9 % (34.0-46.0); HGB 7.7 gm/dL (11.4-16.0); Lymphocytes # (A) 0.5 k/uL (1.0-4.8); Lymphocytes % (A) 4 %; MCH 29.8 pg (25.0-35.0); MCHC 33.7 g/dL (31.0-37.0); MCV 88.5 fL (80.0-100.0); Mean Platelet Volume 10.6; Monocytes # (A) 0.9 k/uL (0-1.0); Monocytes % (A) 8 %; Neutrophils # (A) 10.9 k/uL (1.3-7.7); Neutrophils % (A) 87 %; Platelet Count 170 k/uL (150-450); RBC 2.58 m/uL (3.80-5.40); RDW 14.5 % (11.5-15.5); WBC 12.5 k/uL (3.8-10.6)
[2018-01-19] MEDS ORDERED: CARDIOPLEGIC SOLN (K+ 16 MEQ/L 1,000 ML with SODIUM BICARB (1 MEQ/ML) 20 ML, LIDOCAINE ... PERFUSION ONE ×3 (05:00)
[2018-01-19] MEDS: ACETAMINOPHEN IV (For NPO) 1,000 MG in EMPTY BAG 1 BAG IVPB SCH ×3 (05:02→18:23)
[2018-01-19] MEDS: NOREPINEPHRINE 4 MG in SODIUM CHLORIDE 0.9% 250 ML IV SCH ×3 (05:04→20:31)
[2018-01-19 05:05] LABS: Ionized Calcium 4.5 mg/dL (4.5-5.3)
[2018-01-19] MEDS: MILRINONE-D5W PMX 20 MG in DEXTROSE/WATER 1 100ML.BAG IV SCH ×2 (05:05→23:29)
[2018-01-19 05:14] LABS: Partial Thromboplastin Time 23.3 sec (22.0-30.0); Prothrombin Time 10.2 sec (9.0-12.0)
[2018-01-19 05:15] LABS: Albumin 4.1 g/dL (3.5-5.0); Calcium 8.5 mg/dL (8.4-10.2); Magnesium 2.4 mg/dL (1.6-2.3); Potassium 4.2 mmol/L (3.5-5.1); Total Bilirubin 1.9 mg/dL (0.2-1.3); Total Protein 5.9 g/dL (6.3-8.2)
[2018-01-19 06:11] LABS: Glucose,Whole Blood 132 mg/dL (75-99)
[2018-01-19 07:09] LABS: Glucose,Whole Blood 140 mg/dL (75-99)
--- NOTE | 2018-01-19 07:33 | P.CNPUL ---
History of Present Illness Consult date: 01/19/18 Reason for consult: other Chief complaint: Status post mitral valve replacement and tricuspid valve repair History of present illness: Consult dated 01/19/2018 62-year-old female postop day #1 status post mitral valve replacement and tricuspid valve repair. The surgery was done by Dr. Ibrahim. Currently, the patient's on O2 at 4 L by nasal cannula. Her IVs include norepinephrine at 6 mcg/m, insulin drip at 1.5 units per hour, lactated Ringer's at 50 mL an hour and Primacor 0.375 mcg/kg/m. The patient had excellent weaning parameters and blood gas and a positive cuff leak test and she was extubated last night. She has a history of atrial fibrillation valvular heart disease CAD heart failure COPD CVA hyperlipidemia hypertension myocardial infarction DJD and pneumonia. She also suffers from degenerative disc disease and chronic back pain and urinary incontinence and number of other major medical problems. Surgically, she status post thyroidectomy cholecystectomy heart catheterization with pretty procedures and tonsillectomy. Review of Systems A 12 point review of system is positive for distress or pain at the sternal wound site and surgical site Past Medical History Past Medical History: Atrial Fibrillation, Coronary Artery Disease (CAD), Heart Failure, COPD, CVA/TIA, Hyperlipidemia, Hypertension, Myocardial Infarction ([place]) , Osteoarthritis (OA), Pneumonia Additional Past Medical History / Comment(s): Steroids Oct 2017,DDD,chronic back pain, urinary incontience, pne multiple times and once being sepsic and on vent for 4 months at [facility], incont of urine/wears breif. emphysema, bronchits ,,per pt's daughter- issue w/ shuffling gait won't life her feet when she walk, uses cane when up, mitral valve heart disease-valve stenosis/regurg/previous valvuloplasty 2012/asd closure Last Myocardial Infarction Date:: History of Any Multi-Drug Resistant Organisms: None Reported Past Surgical History: Adenoidectomy, Cholecystectomy, Heart Catheterization, Orthopedic Surgery, Tonsillectomy Additional Past Surgical History / Comment(s): bilateral hands, ankle, D and C d /t miscarriage,previously charted- mitral valvuloplasty/asd closure, orif rt ankle, micheal carpal tunnel Past Anesthesia/Blood Transfusion Reactions: No Reported Reaction Smoking Status: Current some day smoker - Past Family History Mother Family Medical History: Dementia Additional Family Medical History / Comment(s): at age 84 from dementia and blood infection Father Family Medical History: Congestive Heart Failure (CHF), Myocardial Infarction ( [place]) Additional Family Medical History / Comment(s): heart failure, from heart attack at 74 in 1999 Sister(s) Family Medical History: No Reported History Additional Family Medical History / Comment(s): from car accident Medications and Allergies Home Medications Medication Instructions Recorded Confirmed Type Digoxin [Lanoxin] 125 mcg PO DAILY 05/22/17 01/18/18 History Loratadine [Claritin] 10 mg PO DAILY 05/22/17 01/18/18 History Budesonide-Formot 160-4.5 Mcg 2 puff INHALATION RT-BID #1 inh 07/16/17 01/18/18 Rx [Symbicort 160-4.5 Mcg Inhaler] Furosemide [Lasix] 40 mg PO DAILY 09/01/17 01/18/18 History Ipratropium-Albuterol Nebulize 3 ml INHALATION RT-QID #120 09/06/17 01/18/18 Rx [Duoneb 0.5 mg-3 mg/3 ml Soln] ampul.neb Alendronate Sodium [Fosamax] 70 mg PO DAVIS 09/17/17 01/18/18 History Escitalopram [Lexapro] 10 mg PO HS 09/17/17 01/18/18 History Metoprolol Tartrate [Lopressor] 25 mg PO DAILY 09/17/17 01/18/18 History Oxybutynin Xl [Ditropan XL] 5 mg PO DAILY 09/17/17 01/18/18 History Pantoprazole Sodium [Protonix] 40 mg PO QAM 09/17/17 01/18/18 History Acetaminophen Tab [Tylenol] 500 mg PO Q6HR PRN tab 09/22/17 01/18/18 Rx Warfarin [Coumadin] 1 mg PO HS tab 10/03/17 01/18/18 Rx Albuterol Inhaler [Ventolin Hfa 1 - 2 puff INHALATION RT-BID 01/13/18 01/18/18 History Inhaler] Mupirocin 2% Nasal Oint [Bactroban 1 applic NASAL BID 01/13/18 01/18/18 History 2% Nasal Oint] Ondansetron Odt [Zofran Odt] 8 mg PO Q12HR PRN 01/13/18 01/18/18 History clonazePAM [Klonopin ODT Wafer] 0.25 mg PO BID 01/13/18 01/18/18 History Aspirin EC [Ecotrin Low Dose] 324 mg PO ONCE 01/18/18 01/18/18 History Allergies Allergy/AdvReac Type Severity Reaction Status Date / Time ciprofloxacin [From Cipro] Allergy Rash/Hives Verified 01/18/18 13:03 Sulfa (Sulfonamide Allergy Rash/Hives Verified 01/18/18 13:03 Antibiotics) tramadol [From Ultram] AdvReac Rash/Hives Verified 01/18/18 13:03 Physical Exam Osteopathic Statement: *. No significant issues noted on an osteopathic structural exam other than those noted in the History and Physical/Consult. Vitals: Vital Signs Temp Pulse Pulse Pulse Resp BP BP 01/19/18 07:00 59 L 18 100/50 01/19/18 06:00 99.5 F 59 L 22 93/47 01/19/18 05:00 59 L 18 83/46 01/19/18 04:00 99.3 F 59 L 60 63 20 88/49 01/19/18 03:00 59 L 16 86/47 01/19/18 02:00 59 L 13 98/46 01/19/18 01:00 98.6 F 60 12 86/47 01/19/18 00:00 98.6 F 62 13 91/50 01/18/18 23:27 60 63 12 01/18/18 23:00 98.6 F 60 12 90/48 01/18/18 22:00 60 12 86/46 01/18/18 21:00 98.6 F 59 L 14 90/47 01/18/18 20:59 59 L 01/18/18 20:48 55 L 01/18/18 20:00 99 F 59 L 14 101/60 01/18/18 19:05 01/18/18 19:03 60 63 26 H 01/18/18 19:00 98.4 F 59 L 26 H 01/18/18 18:00 98.1 F 59 L 19 80/50 01/18/18 17:00 98.4 F 59 L 27 H 90/54 01/18/18 16:00 98.1 F 59 L 60 63 26 H 91/52 01/18/18 15:56 59 L 01/18/18 15:36 59 L 01/18/18 15:13 97.2 F L 59 L 16 91/49 01/18/18 15:00 96.8 F L 60 24 01/18/18 14:49 96.8 F L 59 L 16 88/49 01/18/18 14:47 96.8 F L 60 16 87/49 01/18/18 14:27 69.3 F L 59 L 16 100/56 01/18/18 14:20 96.8 F L 59 L 16 86/48 01/18/18 14:00 59 L 17 01/18/18 13:57 95.5 F L 60 16 104/56 01/18/18 13:50 60 12 01/18/18 13:48 95.4 F L 60 16 88/47 01/18/18 13:40 60 16 01/18/18 13:30 60 16 01/18/18 13:20 60 14 01/18/18 13:10 59 L 13 01/18/18 13:06 01/18/18 13:00 95.4 F L 60 60 10 L 122/60 Pulse Ox 01/19/18 07:00 99 01/19/18 06:00 01/19/18 05:00 97 01/19/18 04:00 97 01/19/18 03:00 96 01/19/18 02:00 96 01/19/18 01:00 96 01/19/18 00:00 95 01/18/18 23:27 01/18/18 23:00 98 01/18/18 22:00 98 01/18/18 21:00 99 01/18/18 20:59 01/18/18 20:48 01/18/18 20:00 95 01/18/18 19:05 98 01/18/18 19:03 01/18/18 19:00 98 01/18/18 18:00 100 01/18/18 17:00 98 01/18/18 16:00 56 L 01/18/18 15:56 01/18/18 15:36 01/18/18 15:13 100 01/18/18 15:00 95 01/18/18 14:49 100 04/30/18 14:47 01/18/18 14:27 100 01/18/18 14:20 01/18/18 14:00 98 01/18/18 13:57 100 01/18/18 13:50 100 01/18/18 13:48 100 01/18/18 13:40 99 01/18/18 13:30 100 01/18/18 13:20 100 01/18/18 13:10 100 01/18/18 13:06 100 01/18/18 13:00 100 Intake and Output 01/18/18 01/19/18 01/19/18 22:59 06:59 14:59 Intake Total 1139.114 983.460 59 Output Total 640 525 65 Balance 499.114 458.460 -6 Intake: IV 823 712 59 ACETAMINOPHEN IV (For NPO 100 200 ) 1,000 mg In Empty Bag 1 bag @ 400 mls/hr IVPB Q6HR JUAN A Rx#:[id number] Albumin Human 5% 250 ml 250 In Empty Bag 1 bag @ 250 mls/hr IVPB Q1HR PRN Rx#: [id number] CO/CI 60 40 0 Lactated Ringers 1,000 ml 350 400 50 @ 50 mls/hr IV .Q20H JUAN A Rx#:[id number] Pressure Bag 63 72 9 Intake, IV Titration 8.114 271.460 Amount Insulin Regular 100 unit 8.114 1.558 In Sodium Chloride 0.9% 100 ml @ Per Protocol IV .Q0M JUAN A Rx#:[id number] Milrinone-D5w Pmx 20 mg 71.147 In Dextrose/Water 1 100ml .bag @ Per Protocol IV . Q0M JUAN A Rx#:[id number] Norepinephrine 4 mg In 198.755 Sodium Chloride 0.9% 250 ml @ Titrate IV .Q0M JUAN A Rx#:[id number] Blood Product 308 Ffp 24 Cpd Unit 308 [id number] Output: Chest Tube Drainage 290 200 30 Lt and Rt medistinal CT 290 200 30 Urine 350 325 35 Other: Voiding Method Indwelling Catheter Indwelling Catheter Weight 71 kg ABP, PAP, CO, CI - Last 8 Hours Arterial Blood Pressure 89/41 Arterial Blood Pressure 90/54 Arterial Blood Pressure 103/49 Arterial Blood Pressure 98/47 Arterial Blood Pressure 97/50 Arterial Blood Pressure 112/49 Arterial Blood Pressure 91/45 Arterial Blood Pressure 108/50 Pulmonary Artery Pressure 61/23 Pulmonary Artery Pressure 64/19 Pulmonary Artery Pressure 70/29 Pulmonary Artery Pressure 67/29 Pulmonary Artery Pressure 76/34 Pulmonary Artery Pressure 74/31 Pulmonary Artery Pressure 69/29 Pulmonary Artery Pressure 77/32 Cardiac Output 4.2 Cardiac Output 4.2 Cardiac Output 4.9 Cardiac Output 4.9 Cardiac Output 4.9 Cardiac Output 4.9 Cardiac Output 4.9 Cardiac Output 4.9 Cardiac Index 2.6 Cardiac Index 3 No acute distress, oriented 3. Nasal O2 in place. HEENT examination is grossly unremarkable. Mucous membranes are moist. No oral lesions. Neck supple. Full range of motion. No adenopathy thyromegaly or neck vein distention. Cardiovascular examination reveals regular rhythm rate. S1-S2 normal. No S3 or S4. No discernible murmur noted. Lungs reveal coarse expiratory rhonchi. Breath sounds equal. No crackles. No wheezes. She does not take deep breaths. Abdomen soft bowel sounds are heard. No masses or tenderness. Extremities are intact. No cyanosis clubbing or edema. Skin is without rash or lesion. Neurologic examination is brief but nonfocal. Results - Laboratory Findings CBC and BMP: 01/19/18 04:45 01/19/18 04:45 ABG ABG pH 7.39 (7.35-7.45) 01/18/18 19:47 ABG pCO2 45 mmHg (35-45) 01/18/18 19:47 ABG pO2 73 mmHg (83-108) L 01/18/18 19:47 ABG O2 Saturation 97.0 % (94-97) 01/18/18 19:47 PT/INR, D-dimer PT 10.2 sec (9.0-12.0) 01/19/18 04:45 INR 1.0 (<1.2) 01/19/18 04:45 Abnormal lab findings: Abnormal Labs 01/12/18 01/18/18 01/18/18 08:44 09:00 09:36 WBC RBC Hgb Hct Neutrophils # Lymphocytes # INR ABG pH 7.46 H 7.46 H ABG pCO2 ABG pO2 175 H 201 H ABG HCO3 26 H ABG Total CO2 27 H 27 H ABG O2 Saturation 100.0 H 100.0 H ABG Hematocrit ABG Ionized Calcium 4.4 L 4.4 L ABG Glucose 109 H ABG Lactic Acid 2.1 H 2.4 H* Hemoglobin Sodium Glucose POC Glucose (mg/dL) Calcium Phosphorus Magnesium Total Bilirubin AST Total Protein Albumin Arterial Blood Glucose 109 H Crossmatch See Detail 01/18/18 01/18/18 01/18/18 10:12 10:39 11:10 WBC RBC Hgb Hct Neutrophils # Lymphocytes # INR ABG pH ABG pCO2 ABG pO2 332 H 305 H 366 H ABG HCO3 26 H 26 H ABG Total CO2 27 H 27 H 26 H ABG O2 Saturation 100.0 H 100.0 H 100.0 H ABG Hematocrit 28 L 30 L 30 L ABG Ionized Calcium 3.9 L 4.1 L 4.2 L ABG Glucose 202 H 172 H 155 H ABG Lactic Acid 2.4 H* 2.9 H* 3.7 H* Hemoglobin 9.2 L 9.8 L 9.7 L Sodium Glucose POC Glucose (mg/dL) Calcium Phosphorus Magnesium Total Bilirubin AST Total Protein Albumin Arterial Blood Glucose 202 H 172 H 155 H Crossmatch 01/18/18 01/18/18 01/18/18 12:17 13:00 13:00 WBC 13.8 H RBC 3.47 L Hgb 10.2 L D Hct 30.8 L Neutrophils # 11.7 H Lymphocytes # INR ABG pH ABG pCO2 ABG pO2 114 H ABG HCO3 26 H ABG Total CO2 27 H ABG O2 Saturation 98.6 H ABG Hematocrit 33 L ABG Ionized Calcium ABG Glucose ABG Lactic Acid 1.9 H Hemoglobin 10.7 L Sodium Glucose 101 H POC Glucose (mg/dL) Calcium 8.0 L Phosphorus Magnesium 3.0 H Total Bilirubin AST 170 H Total Protein 5.0 L Albumin 3.0 L Arterial Blood Glucose Crossmatch 01/18/18 01/18/18 01/18/18 13:00 13:03 13:19 WBC RBC Hgb Hct Neutrophils # Lymphocytes # INR 1.2 H ABG pH 7.29 L ABG pCO2 54 H ABG pO2 180 H ABG HCO3 26 H ABG Total CO2 28 H ABG O2 Saturation 99.5 H ABG Hematocrit ABG Ionized Calcium ABG Glucose ABG Lactic Acid Hemoglobin Sodium Glucose POC Glucose (mg/dL) 124 H Calcium Phosphorus Magnesium Total Bilirubin AST Total Protein Albumin Arterial Blood Glucose Crossmatch 01/18/18 01/18/18 01/18/18 14:04 15:10 16:04 WBC RBC Hgb Hct Neutrophils # Lymphocytes # INR ABG pH ABG pCO2 ABG pO2 ABG HCO3 ABG Total CO2 ABG O2 Saturation ABG Hematocrit ABG Ionized Calcium ABG Glucose ABG Lactic Acid Hemoglobin Sodium Glucose POC Glucose (mg/dL) 106 H 160 H 126 H Calcium Phosphorus Magnesium Total Bilirubin AST Total Protein Albumin Arterial Blood Glucose Crossmatch 01/18/18 01/18/18 01/18/18 16:20 16:20 17:00 WBC 13.4 H RBC 2.58 L Hgb 7.7 L D Hct 23.1 L Neutrophils # 11.8 H Lymphocytes # 0.6 L INR ABG pH ABG pCO2 ABG pO2 ABG HCO3 ABG Total CO2 ABG O2 Saturation ABG Hematocrit ABG Ionized Calcium ABG Glucose ABG Lactic Acid Hemoglobin Sodium Glucose 131 H POC Glucose (mg/dL) 131 H Calcium 8.1 L Phosphorus 4.8 H Magnesium 2.7 H Total Bilirubin AST Total Protein Albumin Arterial Blood Glucose Crossmatch 01/18/18 01/18/18 01/18/18 18:02 18:56 18:57 WBC 12.0 H RBC 2.48 L Hgb 7.3 L Hct 22.0 L Neutrophils # 10.7 H Lymphocytes # 0.4 L INR ABG pH ABG pCO2 ABG pO2 ABG HCO3 ABG Total CO2 ABG O2 Saturation ABG Hematocrit ABG Ionized Calcium ABG Glucose ABG Lactic Acid Hemoglobin Sodium Glucose POC Glucose (mg/dL) 138 H 156 H Calcium Phosphorus Magnesium Total Bilirubin AST Total Protein Albumin Arterial Blood Glucose Crossmatch 01/18/18 01/18/18 01/18/18 19:45 19:47 21:11 WBC RBC Hgb Hct Neutrophils # Lymphocytes # INR ABG pH ABG pCO2 ABG pO2 73 L ABG HCO3 27 H ABG Total CO2 28 H ABG O2 Saturation ABG Hematocrit ABG Ionized Calcium ABG Glucose ABG Lactic Acid Hemoglobin Sodium Glucose POC Glucose (mg/dL) 154 H 134 H Calcium Phosphorus Magnesium Total Bilirubin AST Total Protein Albumin Arterial Blood Glucose Crossmatch 01/18/18 01/18/18 01/18/18 21:59 23:06 23:57 WBC RBC Hgb Hct Neutrophils # Lymphocytes # INR ABG pH ABG pCO2 ABG pO2 ABG HCO3 ABG Total CO2 ABG O2 Saturation ABG Hematocrit ABG Ionized Calcium ABG Glucose ABG Lactic Acid Hemoglobin Sodium Glucose POC Glucose (mg/dL) 118 H 131 H 140 H Calcium Phosphorus Magnesium Total Bilirubin AST Total Protein Albumin Arterial Blood Glucose Crossmatch 01/19/18 01/19/18 01/19/18 01:11 01:59 04:44 WBC RBC Hgb Hct Neutrophils # Lymphocytes # INR ABG pH ABG pCO2 ABG pO2 ABG HCO3 ABG Total CO2 ABG O2 Saturation ABG Hematocrit ABG Ionized Calcium ABG Glucose ABG Lactic Acid Hemoglobin Sodium Glucose POC Glucose (mg/dL) 155 H 140 H 132 H Calcium Phosphorus Magnesium Total Bilirubin AST Total Protein Albumin Arterial Blood Glucose Crossmatch 01/19/18 01/19/18 01/19/18 04:45 04:45 06:10 WBC 12.5 H RBC 2.58 L Hgb 7.7 L Hct 22.9 L Neutrophils # 10.9 H Lymphocytes # 0.5 L INR ABG pH ABG pCO2 ABG pO2 ABG HCO3 ABG Total CO2 ABG O2 Saturation ABG Hematocrit ABG Ionized Calcium ABG Glucose ABG Lactic Acid Hemoglobin Sodium 147 H Glucose 116 H POC Glucose (mg/dL) 132 H Calcium Phosphorus Magnesium 2.4 H Total Bilirubin 1.9 H AST 147 H Total Protein 5.9 L Albumin Arterial Blood Glucose Crossmatch 01/19/18 07:08 WBC RBC Hgb Hct Neutrophils # Lymphocytes # INR ABG pH ABG pCO2 ABG pO2 ABG HCO3 ABG Total CO2 ABG O2 Saturation ABG Hematocrit ABG Ionized Calcium ABG Glucose ABG Lactic Acid Hemoglobin Sodium Glucose POC Glucose (mg/dL) 140 H Calcium Phosphorus Magnesium Total Bilirubin AST Total Protein Albumin Arterial Blood Glucose Crossmatch - Diagnostic Findings Chest x-ray: image reviewed (Labs x-rays a medications are reviewed.) Assessment and Plan Assessment: Assessment Postop day #1, status post mitral valve replacement tricuspid valve repair Postoperative respiratory failure, resolved History of atrial fibrillation History of CAD History of heart failure History of COPD History of CVA/TIA Hyperlipidemia by history Hypertension by history Previous history of myocardial infarction DJD/degenerative disc disease History of pneumonia Previous history of urinary tract infection with sepsis Plan: Plan dated 01/19/2018 The patient was extubated last night. The patient's doing well. We'll continue to follow along. We recommend deep breathing coughing and clearing of secretions. Also recommend using the incentive spirometer every hour while awake. No additional recommendations are made. We'll continue to follow. Prognosis is guarded. Time with Patient: Greater than 30
--- NOTE | 2018-01-19 07:46 | XR ---
EXAMINATION TYPE: XR chest 1V portable DATE OF EXAM: 01/19/2018 CLINICAL HISTORY: Post open cardiac surgery progress study. TECHNIQUE: Single AP portable upright view of the chest is obtained. COMPARISON: Chest x-ray from one day earlier and older studies. FINDINGS: There is interval extubation with removal of endotracheal and orogastric tubes. There is stable right internal jugular Meherrin-See catheter and 2 mediastinal drainage catheters with r ight catheter projecting towards right hilum. There is cardiac valvular ring and left-sided closure d evice as well as overlying sternal wires and C shaped valvular ring all redemonstrated. Overlying inf erior pacer wires are felt present. There is persistent cardiomegaly with bibasilar opacity felt to reflect small bilateral pleural effus ions and associated bibasilar atelectasis and/or infiltrate as well as central vascular congestion al l redemonstrated. Osseous structures remain demineralized. No sizable pneumothorax is seen. IMPRESSION: Interval extubation. Cardiomegaly with central vascular congestion and small bilateral pl eural effusions with associated bibasilar atelectasis and/or infiltrate all are redemonstrated.
[2018-01-19] MEDS: ALBUMIN HUMAN 5% 250 ML in EMPTY BAG 1 BAG IVPB PRN (07:50)
[2018-01-19] MEDS: IPRATROPIUM-ALBUTEROL 3 ML NEB INHALATION PRN ×2 (07:52→17:02)
[2018-01-19 08:16] LABS: Glucose,Whole Blood 128 mg/dL (75-99)
[2018-01-19] MEDS ORDERED: FUROSEMIDE 10 MG/ML 4 ML VIAL IV STA (08:34)
[2018-01-19] MEDS ORDERED: KETOROLAC 30 MG/ML 1 ML VIAL IVP SCH (08:45)
[2018-01-19] MEDS ORDERED: PANTOPRAZOLE 40 MG/10 ML VIAL IVP SCH (09:00)
[2018-01-19] MEDS ORDERED: METOPROLOL TARTRATE 12.5 MG TAB PO SCH (09:00)
[2018-01-19 09:13] LABS: Glucose,Whole Blood 133 mg/dL (75-99)
[2018-01-19] MEDS: HEPARIN SODIUM,PORCINE 5,000 UNIT/ML 1 ML VIAL SQ SCH ×3 (09:18→23:23)
[2018-01-19] MEDS: ceFAZolin IN SWFI 2 GM/20 ML SYRINGE IVP SCH (09:18)
[2018-01-19] MEDS: ASPIRIN 325 MG TAB PO SCH (09:46)
[2018-01-19] MEDS: MUPIROCIN 2% OINT 22 GM TUBE NASAL SCH ×2 (09:46→21:04)
[2018-01-19] MEDS: ATORVASTATIN 40 MG TAB PO SCH (09:46)
[2018-01-19] MEDS: LACTATED RINGERS 1,000 ML IV SCH (09:47)
[2018-01-19 10:01] LABS: Glucose,Whole Blood 132 mg/dL (75-99)
[2018-01-19 11:21] LABS: Glucose,Whole Blood 134 mg/dL (75-99)
[2018-01-19] MEDS: IPRATROPIUM-ALBUTEROL 3 ML NEB INHALATION SCH ×3 (11:37→20:17)
[2018-01-19 12:33] LABS: Glucose,Whole Blood 133 mg/dL (75-99)
[2018-01-19] MEDS ORDERED: MAGNESIUM HYDROXIDE 2,400 MG/10 ML CUP PO PRN (12:59)
[2018-01-19] MEDS ORDERED: BISACODYL 10 MG SUPP RECTAL PRN (12:59)
[2018-01-19 13:53] LABS: Glucose,Whole Blood 148 mg/dL (75-99)
--- NOTE | 2018-01-19 14:37 | P.PN ---
Subjective Progress Note Date: 01/19/18 Principal diagnosis: Severe mitral valve stenosis, moderate to severe tricuspid valve regurgitation, long-standing persistent atrial fibrillation, COPD, history of CVA 2 with residual left-sided weakness, hypertension, hyperlipidemia, history of myocardial infarction, history of coronary artery disease, osteoarthritis, chronic low back pain, degenerative disc disease, history of ASD with closure in 2012, history of congestive heart failure, chronic tobacco dependence, history of pneumonia requiring intubation. POD #1 mitral valve replacement with a number 31-33 On-X mechanical mitral valve , tricuspid valve repair with a #32 mm MC 3 tricuspid ring, clip ligation of the left atrial appendage with a #32 x 45 mm atrial clip, intraoperative transesophageal echocardiogram. Patient is currently sitting up to the bedside chair. She is in no acute distress. She denies any complaints of shortness of breath. She is complaining of pain to her chest tube insertion sites 6 out of 10 on the pain scale. She is achieving 500 mL on her incentive spirometry with encouragement. Objective - Vital Signs Vital signs: Vital Signs Temp 98.7 F 01/19/18 08:00 Pulse 69 01/19/18 11:51 Resp 14 01/19/18 10:00 BP 92/59 01/19/18 10:00 Pulse Ox 96 01/19/18 10:00 Intake & Output 01/18/18 01/19/18 01/19/18 18:59 06:59 18:59 Intake Total 0802.414 8106.015 903.755 Output Total 3266 825 190 Balance -1731.869 419.015 713.755 Weight 71 kg 71 kg Intake: IV 597 968 546 ACETAMINOPHEN IV (For NPO 100 200 ) 1,000 mg In Empty Bag 1 bag @ 400 mls/hr IVPB Q6HR [facility] Rx#:[id number] Albumin Human 5% 250 ml 250 250 In Empty Bag 1 bag @ 250 mls/hr IVPB Q1HR PRN Rx#: [id number] CO/CI 40 60 60 Lactated Ringers 1,000 ml 150 600 200 @ 50 mls/hr IV .Q20H [facility] Rx#:[id number] Pressure Bag: Normal 27 108 36 Saline Intake, IV Titration 54.131 276.015 157.755 Amount Insulin Regular 100 unit 3.559 6.113 16.404 In Sodium Chloride 0.9% 100 ml @ Per Protocol IV .Q0M [facility] Rx#:[id number] Lactated Ringers 1,000 ml 50 @ 50 mls/hr IV .Q20H [facility] Rx#:[id number] Milrinone-D5w Pmx 20 mg 71.147 In Dextrose/Water 1 100ml .bag @ Per Protocol IV . Q0M [facility] Rx#:[id number] Norepinephrine 4 mg In 0.572 198.755 141.351 Sodium Chloride 0.9% 250 ml @ Titrate IV .Q0M [facility] Rx#:[id number] Oral 200 Blood Product 883 Ffp 24 Cpd Unit 308 [id number] Ffp 24 Cpd Unit 323 [id number] Platelet Pheresis Acda1 252 Unit [id number] Output: Chest Tube Drainage 600 290 40 Lt and Rt medistinal CT 600 290 40 Urine 1666 535 150 Estimated Blood Loss 1000 Other: Voiding Method Indwelling Catheter Indwelling Catheter Indwelling Catheter ABP, PAP, CO, CI - Last Documented Arterial Blood Pressure 96/48 Pulmonary Artery Pressure 69/29 Cardiac Output 4.9 Cardiac Index 3 - Constitutional General appearance: Present: cooperative, no acute distress - Respiratory Details: Lung sounds are essentially clear to her bilateral upper lobes, diminished her bilateral bases. Respirations are symmetrical and nonlabored. Oxygen saturation are 99% on 4 L nasal cannula. She is achieving 500 mL on her incentive spirometry. Mediastinal chest tubes without air leak, draining thin serosanguineous drainage. 200 mL output in the last 8 hours, 1150 mm output since surgery. - Cardiovascular Details: Regular rhythm and rate. S1 and S2 present, negative for S3, gallop or murmur. Sternum is stable. Bedside telemetry showing ventricular paced rhythm heart rate 60. Underlying rhythm is third degree heart block with a rate of 45. Epicardial ventricular pacemaker wires intact and to backup generator with a rate of 60. Right IJ Cordis in place with [place] catheter patent and functioning. Cardiac output is 4.2, cardiac index 2.6, PA pressures 61/22, CVP 12. Right radial arterial line in place and functioning. Knee-high ROSALIE hose and sequential compression devices in place to her bilateral lower extremities. - Gastrointestinal Gastrointestinal Comment(s): Abdomen is soft, nontender nondistended. Hypoactive bowel sounds to all 4 abdominal quadrants. Tolerating oral intake. Passing flatus. - Genitourinary Genitourinary Comment(s): Owusu catheter for accurate I&O. Draining clear zee urine. 325 mL output in the last 8 hours. - Integumentary Integumentary Comment(s): Skin is warm and dry. No clubbing or cyanosis present. Midline sternal incision clean and dry and approximated. Dermabond dressing clean and dry. - Neurologic Neurologic: Present: CNII-XII intact - Musculoskeletal Musculoskeletal: Present: gait normal, strength equal bilaterally, left sided weakness (She has a history of left-sided weakness from previous CVA.) - Psychiatric Psychiatric: Present: A&O x's 3, appropriate affect, intact judgment & insight - Allied health notes Allied health notes reviewed: nursing - Labs CBC & Chem 7: 01/19/18 04:45 01/19/18 04:45 Labs: Abnormal Lab Results - Last 24 Hours (Table) 01/12/18 01/18/18 01/18/18 Range/Units 08:44 14:04 15:10 WBC (3.8-10.6) k/uL RBC (3.80-5.40) m/uL Hgb (11.4-16.0) gm/dL Hct (34.0-46.0) % Neutrophils # (1.3-7.7) k/uL Lymphocytes # (1.0-4.8) k/uL ABG pO2 (83-108) mmHg ABG HCO3 (21-25) mmol/L ABG Total CO2 (19-24) mmol/L Sodium (137-145) mmol/L Glucose (74-99) mg/dL POC Glucose (mg/dL) 106 H 160 H (75-99) mg/dL Calcium (8.4-10.2) mg/dL Phosphorus (2.5-4.5) mg/dL Magnesium (1.6-2.3) mg/dL Total Bilirubin (0.2-1.3) mg/dL AST (14-36) U/L Total Protein (6.3-8.2) g/dL Crossmatch See Detail 01/18/18 01/18/18 01/18/18 Range/Units 16:04 16:20 16:20 WBC 13.4 H (3.8-10.6) k/uL RBC 2.58 L (3.80-5.40) m/uL Hgb 7.7 L D (11.4-16.0) gm/dL Hct 23.1 L (34.0-46.0) % Neutrophils # 11.8 H (1.3-7.7) k/uL Lymphocytes # 0.6 L (1.0-4.8) k/uL ABG pO2 (83-108) mmHg ABG HCO3 (21-25) mmol/L ABG Total CO2 (19-24) mmol/L Sodium (137-145) mmol/L Glucose 131 H (74-99) mg/dL POC Glucose (mg/dL) 126 H (75-99) mg/dL Calcium 8.1 L (8.4-10.2) mg/dL Phosphorus 4.8 H (2.5-4.5) mg/dL Magnesium 2.7 H (1.6-2.3) mg/dL Total Bilirubin (0.2-1.3) mg/dL AST (14-36) U/L Total Protein (6.3-8.2) g/dL Crossmatch 01/18/18 01/18/18 01/18/18 Range/Units 17:00 18:02 18:56 WBC (3.8-10.6) k/uL RBC (3.80-5.40) m/uL Hgb (11.4-16.0) gm/dL Hct (34.0-46.0) % Neutrophils # (1.3-7.7) k/uL Lymphocytes # (1.0-4.8) k/uL ABG pO2 (83-108) mmHg ABG HCO3 (21-25) mmol/L ABG Total CO2 (19-24) mmol/L Sodium (137-145) mmol/L Glucose (74-99) mg/dL POC Glucose (mg/dL) 131 H 138 H 156 H (75-99) mg/dL Calcium (8.4-10.2) mg/dL Phosphorus (2.5-4.5) mg/dL Magnesium (1.6-2.3) mg/dL Total Bilirubin (0.2-1.3) mg/dL AST (14-36) U/L Total Protein (6.3-8.2) g/dL Crossmatch 01/18/18 01/18/18 01/18/18 Range/Units 18:57 19:45 19:47 WBC 12.0 H (3.8-10.6) k/uL RBC 2.48 L (3.80-5.40) m/uL Hgb 7.3 L (11.4-16.0) gm/dL Hct 22.0 L (34.0-46.0) % Neutrophils # 10.7 H (1.3-7.7) k/uL Lymphocytes # 0.4 L (1.0-4.8) k/uL ABG pO2 73 L (83-108) mmHg ABG HCO3 27 H (21-25) mmol/L ABG Total CO2 28 H (19-24) mmol/L Sodium (137-145) mmol/L Glucose (74-99) mg/dL POC Glucose (mg/dL) 154 H (75-99) mg/dL Calcium (8.4-10.2) mg/dL Phosphorus (2.5-4.5) mg/dL Magnesium (1.6-2.3) mg/dL Total Bilirubin (0.2-1.3) mg/dL AST (14-36) U/L Total Protein (6.3-8.2) g/dL Crossmatch 01/18/18 01/18/18 01/18/18 Range/Units 21:11 21:59 23:06 WBC (3.8-10.6) k/uL RBC (3.80-5.40) m/uL Hgb (11.4-16.0) gm/dL Hct (34.0-46.0) % Neutrophils # (1.3-7.7) k/uL Lymphocytes # (1.0-4.8) k/uL ABG pO2 (83-108) mmHg ABG HCO3 (21-25) mmol/L ABG Total CO2 (19-24) mmol/L Sodium (137-145) mmol/L Glucose (74-99) mg/dL POC Glucose (mg/dL) 134 H 118 H 131 H (75-99) mg/dL Calcium (8.4-10.2) mg/dL Phosphorus (2.5-4.5) mg/dL Magnesium (1.6-2.3) mg/dL Total Bilirubin (0.2-1.3) mg/dL AST (14-36) U/L Total Protein (6.3-8.2) g/dL Crossmatch 01/18/18 01/19/18 01/19/18 Range/Units 23:57 01:11 01:59 WBC (3.8-10.6) k/uL RBC (3.80-5.40) m/uL Hgb (11.4-16.0) gm/dL Hct (34.0-46.0) % Neutrophils # (1.3-7.7) k/uL Lymphocytes # (1.0-4.8) k/uL ABG pO2 (83-108) mmHg ABG HCO3 (21-25) mmol/L ABG Total CO2 (19-24) mmol/L Sodium (137-145) mmol/L Glucose (74-99) mg/dL POC Glucose (mg/dL) 140 H 155 H 140 H (75-99) mg/dL Calcium (8.4-10.2) mg/dL Phosphorus (2.5-4.5) mg/dL Magnesium (1.6-2.3) mg/dL Total Bilirubin (0.2-1.3) mg/dL AST (14-36) U/L Total Protein (6.3-8.2) g/dL Crossmatch 01/19/18 01/19/18 01/19/18 Range/Units 04:44 04:45 04:45 WBC 12.5 H (3.8-10.6) k/uL RBC 2.58 L (3.80-5.40) m/uL Hgb 7.7 L (11.4-16.0) gm/dL Hct 22.9 L (34.0-46.0) % Neutrophils # 10.9 H (1.3-7.7) k/uL Lymphocytes # 0.5 L (1.0-4.8) k/uL ABG pO2 (83-108) mmHg ABG HCO3 (21-25) mmol/L ABG Total CO2 (19-24) mmol/L Sodium 147 H (137-145) mmol/L Glucose 116 H (74-99) mg/dL POC Glucose (mg/dL) 132 H (75-99) mg/dL Calcium (8.4-10.2) mg/dL Phosphorus (2.5-4.5) mg/dL Magnesium 2.4 H (1.6-2.3) mg/dL Total Bilirubin 1.9 H (0.2-1.3) mg/dL AST 147 H (14-36) U/L Total Protein 5.9 L (6.3-8.2) g/dL Crossmatch 01/19/18 01/19/18 01/19/18 Range/Units 06:10 07:08 08:15 WBC (3.8-10.6) k/uL RBC (3.80-5.40) m/uL Hgb (11.4-16.0) gm/dL Hct (34.0-46.0) % Neutrophils # (1.3-7.7) k/uL Lymphocytes # (1.0-4.8) k/uL ABG pO2 (83-108) mmHg ABG HCO3 (21-25) mmol/L ABG Total CO2 (19-24) mmol/L Sodium (137-145) mmol/L Glucose (74-99) mg/dL POC Glucose (mg/dL) 132 H 140 H 128 H (75-99) mg/dL Calcium (8.4-10.2) mg/dL Phosphorus (2.5-4.5) mg/dL Magnesium (1.6-2.3) mg/dL Total Bilirubin (0.2-1.3) mg/dL AST (14-36) U/L Total Protein (6.3-8.2) g/dL Crossmatch 01/19/18 01/19/18 01/19/18 Range/Units 09:11 09:58 11:19 WBC (3.8-10.6) k/uL RBC (3.80-5.40) m/uL Hgb (11.4-16.0) gm/dL Hct (34.0-46.0) % Neutrophils # (1.3-7.7) k/uL Lymphocytes # (1.0-4.8) k/uL ABG pO2 (83-108) mmHg ABG HCO3 (21-25) mmol/L ABG Total CO2 (19-24) mmol/L Sodium (137-145) mmol/L Glucose (74-99) mg/dL POC Glucose (mg/dL) 133 H 132 H 134 H (75-99) mg/dL Calcium (8.4-10.2) mg/dL Phosphorus (2.5-4.5) mg/dL Magnesium (1.6-2.3) mg/dL Total Bilirubin (0.2-1.3) mg/dL AST (14-36) U/L Total Protein (6.3-8.2) g/dL Crossmatch 01/19/18 01/19/18 Range/Units 12:30 13:51 WBC (3.8-10.6) k/uL RBC (3.80-5.40) m/uL Hgb (11.4-16.0) gm/dL Hct (34.0-46.0) % Neutrophils # (1.3-7.7) k/uL Lymphocytes # (1.0-4.8) k/uL ABG pO2 (83-108) mmHg ABG HCO3 (21-25) mmol/L ABG Total CO2 (19-24) mmol/L Sodium (137-145) mmol/L Glucose (74-99) mg/dL POC Glucose (mg/dL) 133 H 148 H (75-99) mg/dL Calcium (8.4-10.2) mg/dL Phosphorus (2.5-4.5) mg/dL Magnesium (1.6-2.3) mg/dL Total Bilirubin (0.2-1.3) mg/dL AST (14-36) U/L Total Protein (6.3-8.2) g/dL Crossmatch - Imaging and Cardiology Chest x-ray: report reviewed, image reviewed Assessment and Plan (1) Persistent atrial fibrillation Current Visit: Yes Status: Acute Code(s): I48.1 - PERSISTENT ATRIAL FIBRILLATION SNOMED Code(s): 154430663 (2) Nicotine dependence Current Visit: Yes Status: Acute Code(s): F17.200 - NICOTINE DEPENDENCE, UNSPECIFIED, UNCOMPLICATED SNOMED Code(s): 07513583 (3) Hypertension Current Visit: Yes Status: Acute Code(s): I10 - ESSENTIAL (PRIMARY) HYPERTENSION SNOMED Code(s): 64061635 (4) Hyperlipidemia Current Visit: Yes Status: Acute Code(s): E78.5 - HYPERLIPIDEMIA, UNSPECIFIED SNOMED Code(s): 93882555 (5) CHF (congestive heart failure) Current Visit: No Status: Acute Code(s): I50.9 - HEART FAILURE, UNSPECIFIED SNOMED Code(s): 81749330 (6) COPD (chronic obstructive pulmonary disease) Current Visit: No Status: Acute Code(s): J44.9 - CHRONIC OBSTRUCTIVE PULMONARY DISEASE, UNSPECIFIED SNOMED Code(s): 56137937 (7) Diastolic CHF, acute on chronic Current Visit: No Status: Acute Code(s): I50.33 - ACUTE ON CHRONIC DIASTOLIC (CONGESTIVE) HEART FAILURE SNOMED Code(s): 469072379 (8) History of pneumonia Current Visit: No Status: Acute Code(s): Z87.01 - PERSONAL HISTORY OF PNEUMONIA (RECURRENT) SNOMED Code(s): 331572407 (9) Mitral stenosis Current Visit: No Status: Acute Code(s): I05.0 - RHEUMATIC MITRAL STENOSIS SNOMED Code(s): 95602515 (10) Status post patch closure of ASD Current Visit: No Status: Acute Code(s): Z98.890 - OTHER SPECIFIED POSTPROCEDURAL STATES; Z87.74 - PERSONAL HISTORY OF CONGENITAL MALFORM OF HEART AND CIRC SYS SNOMED Code(s): 859937227 (11) Chronic a-fib Current Visit: No Status: Chronic Code(s): I48.2 - CHRONIC ATRIAL FIBRILLATION SNOMED Code(s): 786343389 (12) History of CVA (cerebrovascular accident) Current Visit: No Status: Chronic Code(s): Z86.73 - PRSNL HX OF TIA (TIA), AND CEREB INFRC W/O RESID DEFICITS SNOMED Code(s): 951859335 (13) Mitral valve stenosis, severe Current Visit: No Status: Chronic Code(s): I05.0 - RHEUMATIC MITRAL STENOSIS SNOMED Code(s): 65976229 (14) Noncompliance Current Visit: No Status: Chronic Code(s): Z91.19 - PATIENT'S NONCOMPLIANCE W OTH MEDICAL TREATMENT AND REGIMEN SNOMED Code(s): 3012415 Plan: 1. Continue aspirin, statin, and heparin subcu. Hold beta tay today. 2. Decrease Primacor to 0.25 mcg/kg/m. 3. Wean levothyroid as tolerated. 4. Pulmonary management per Dr. Casarez's recommendations. Encourage use of her incentive spirometry every hour while awake. 5. Increase activity as tolerated. Out of bed for all meals. Physical therapy , occupational therapy and cardiac rehab consulted. 6. Blood sugar management and medical management per primary care service. 7. Keep ventricular epicardial pacemaker wires in place, increase VVI backup mode to a heart rate of 70 bpm. 8. Lasix 40 mg IV 1 today. 9. We will add Toradol 15 mg IV every 6 hours when necessary pain. 10. GI/DVT prophylaxis. 11. We will monitor daily labs and chest x-rays. 12. Reinforced the importance of smoking cessation and continue smoking cessation education. 13. Continue chest tubes to low continuous wall suction -20 cm H2O. 14. More recommendations to follow based on the patient's clinical course. Time with Patient: Greater than 30
[2018-01-19 15:11] LABS: Glucose,Whole Blood 149 mg/dL (75-99)
[2018-01-19] MEDS ORDERED: CALCIUM GLUCONATE 1,000 MG in SODIUM CHLORIDE 0.9% 100 ML IVPB ONE (15:20)
[2018-01-19] MEDS: NITROGLYCERIN-D5W PMX 50 MG in DEXTROSE/WATER 1 250ML.BAG IV SCH (15:26)
[2018-01-19] MEDS: CLEVIDIPINE BUTYRATE 25 MG in EMPTY BAG 1 BAG IV SCH (15:26)
--- NOTE | 2018-01-19 15:47 | P.PN ---
Subjective 62-year-old female admitted for mitral valve replacement with a mechanical mitral valve. Patient is extubated clinically doing well. Comparing of some pain in the retrosternal area. Constitutional: Denied any fatigue denied any fever. Cardio vascular: denied any palpitations Gastrointestinal denied any nausea vomiting Pulmonary: Denied any shortness of breath cough Neurologic denied any new focal deficits Objective - Vital Signs Vital signs: Vital Signs Temp 98.7 F 01/19/18 08:00 Pulse 69 01/19/18 15:00 Resp 17 01/19/18 15:00 BP 85/44 01/19/18 15:00 Pulse Ox 96 01/19/18 15:00 Intake & Output 01/18/18 01/19/18 01/19/18 18:59 06:59 18:59 Intake Total 0071.101 2957.015 1821.470 Output Total 3266 825 855 Balance -1731.869 419.015 966.470 Weight 71 kg 71 kg Intake: IV 597 968 981 ACETAMINOPHEN IV (For NPO 100 200 100 ) 1,000 mg In Empty Bag 1 bag @ 400 mls/hr IVPB Q6HR [facility] A Rx#:[id number] Albumin Human 5% 250 ml 250 250 In Empty Bag 1 bag @ 250 mls/hr IVPB Q1HR PRN Rx#: [id number] CO/CI 40 60 100 Lactated Ringers 1,000 ml 150 600 450 @ 50 mls/hr IV .Q20H [facility]UAN A Rx#:[id number] Pressure Bag: Normal 27 108 81 Saline Intake, IV Titration 54.131 276.015 403.470 Amount Calcium Gluconate 1,000 100 mg In Sodium Chloride 0.9 % 100 ml @ 100 mls/hr IVPB ONCE ONE Rx#: [id number] Insulin Regular 100 unit 3.559 6.113 16.404 In Sodium Chloride 0.9% 100 ml @ Per Protocol IV .Q0M [facility] A Rx#:[id number] Lactated Ringers 1,000 ml 50 @ 50 mls/hr IV .Q20H [facility] A Rx#:[id number] Milrinone-D5w Pmx 20 mg 71.147 51.608 In Dextrose/Water 1 100ml .bag @ Per Protocol IV . Q0M [facility] A Rx#:[id number] Norepinephrine 4 mg In 0.572 198.755 235.458 Sodium Chloride 0.9% 250 ml @ Titrate IV .Q0M [facility] Rx#:[id number] Oral 437 Blood Product 883 Ffp 24 Cpd Unit 308 [id number] Ffp 24 Cpd Unit 323 [id number] Platelet Pheresis Acda1 252 Unit [id number] Output: Chest Tube Drainage 600 290 40 Lt and Rt medistinal CT 600 290 40 Urine 1666 535 815 Estimated Blood Loss 1000 Other: Voiding Method Indwelling Catheter Indwelling Catheter Indwelling Catheter ABP, PAP, CO, CI - Last Documented Arterial Blood Pressure 80/38 Pulmonary Artery Pressure 57/23 Cardiac Output 6 Cardiac Index 3.7 - Exam PHYSICAL EXAMINATION: GENERAL: Patient is extubated alert oriented [address] [place]-See in place HEENT: Pupils are round and equally reacting to light. EOMI. No scleral icterus. No conjunctival pallor. Normocephalic, atraumatic. No pharyngeal erythema. No thyromegaly. CARDIOVASCULAR: S1 and S2 present. No murmurs, rubs, or gallops. PULMONARY: Chest is clear to auscultation, no wheezing or crackles. ABDOMEN: Soft, nontender, nondistended, normoactive bowel sounds. No palpable organomegaly. MUSCULOSKELETAL: No joint swelling or deformity. EXTREMITIES: No cyanosis, clubbing, or pedal edema. NEUROLOGICAL: Gross neurological examination did not reveal any focal deficits. SKIN: No rashes. - Labs CBC & Chem 7: 01/19/18 04:45 01/19/18 04:45 Labs: Abnormal Lab Results - Last 24 Hours (Table) 01/12/18 01/18/18 01/18/18 Range/Units 08:44 16:04 16:20 WBC (3.8-10.6) k/uL RBC (3.80-5.40) m/uL Hgb (11.4-16.0) gm/dL Hct (34.0-46.0) % Neutrophils # (1.3-7.7) k/uL Lymphocytes # (1.0-4.8) k/uL ABG pO2 (83-108) mmHg ABG HCO3 (21-25) mmol/L ABG Total CO2 (19-24) mmol/L Sodium (137-145) mmol/L Glucose 131 H (74-99) mg/dL POC Glucose (mg/dL) 126 H (75-99) mg/dL Calcium 8.1 L (8.4-10.2) mg/dL Phosphorus 4.8 H (2.5-4.5) mg/dL Magnesium 2.7 H (1.6-2.3) mg/dL Total Bilirubin (0.2-1.3) mg/dL AST (14-36) U/L Total Protein (6.3-8.2) g/dL Crossmatch See Detail 01/18/18 01/18/18 01/18/18 Range/Units 16:20 17:00 18:02 WBC 13.4 H (3.8-10.6) k/uL RBC 2.58 L (3.80-5.40) m/uL Hgb 7.7 L D (11.4-16.0) gm/dL Hct 23.1 L (34.0-46.0) % Neutrophils # 11.8 H (1.3-7.7) k/uL Lymphocytes # 0.6 L (1.0-4.8) k/uL ABG pO2 (83-108) mmHg ABG HCO3 (21-25) mmol/L ABG Total CO2 (19-24) mmol/L Sodium (137-145) mmol/L Glucose (74-99) mg/dL POC Glucose (mg/dL) 131 H 138 H (75-99) mg/dL Calcium (8.4-10.2) mg/dL Phosphorus (2.5-4.5) mg/dL Magnesium (1.6-2.3) mg/dL Total Bilirubin (0.2-1.3) mg/dL AST (14-36) U/L Total Protein (6.3-8.2) g/dL Crossmatch 01/18/18 01/18/18 01/18/18 Range/Units 18:56 18:57 19:45 WBC 12.0 H (3.8-10.6) k/uL RBC 2.48 L (3.80-5.40) m/uL Hgb 7.3 L (11.4-16.0) gm/dL Hct 22.0 L (34.0-46.0) % Neutrophils # 10.7 H (1.3-7.7) k/uL Lymphocytes # 0.4 L (1.0-4.8) k/uL ABG pO2 (83-108) mmHg ABG HCO3 (21-25) mmol/L ABG Total CO2 (19-24) mmol/L Sodium (137-145) mmol/L Glucose (74-99) mg/dL POC Glucose (mg/dL) 156 H 154 H (75-99) mg/dL Calcium (8.4-10.2) mg/dL Phosphorus (2.5-4.5) mg/dL Magnesium (1.6-2.3) mg/dL Total Bilirubin (0.2-1.3) mg/dL AST (14-36) U/L Total Protein (6.3-8.2) g/dL Crossmatch 01/18/18 01/18/18 01/18/18 Range/Units 19:47 21:11 21:59 WBC (3.8-10.6) k/uL RBC (3.80-5.40) m/uL Hgb (11.4-16.0) gm/dL Hct (34.0-46.0) % Neutrophils # (1.3-7.7) k/uL Lymphocytes # (1.0-4.8) k/uL ABG pO2 73 L (83-108) mmHg ABG HCO3 27 H (21-25) mmol/L ABG Total CO2 28 H (19-24) mmol/L Sodium (137-145) mmol/L Glucose (74-99) mg/dL POC Glucose (mg/dL) 134 H 118 H (75-99) mg/dL Calcium (8.4-10.2) mg/dL Phosphorus (2.5-4.5) mg/dL Magnesium (1.6-2.3) mg/dL Total Bilirubin (0.2-1.3) mg/dL AST (14-36) U/L Total Protein (6.3-8.2) g/dL Crossmatch 01/18/18 01/18/18 01/19/18 Range/Units 23:06 23:57 01:11 WBC (3.8-10.6) k/uL RBC (3.80-5.40) m/uL Hgb (11.4-16.0) gm/dL Hct (34.0-46.0) % Neutrophils # (1.3-7.7) k/uL Lymphocytes # (1.0-4.8) k/uL ABG pO2 (83-108) mmHg ABG HCO3 (21-25) mmol/L ABG Total CO2 (19-24) mmol/L Sodium (137-145) mmol/L Glucose (74-99) mg/dL POC Glucose (mg/dL) 131 H 140 H 155 H (75-99) mg/dL Calcium (8.4-10.2) mg/dL Phosphorus (2.5-4.5) mg/dL Magnesium (1.6-2.3) mg/dL Total Bilirubin (0.2-1.3) mg/dL AST (14-36) U/L Total Protein (6.3-8.2) g/dL Crossmatch 01/19/18 01/19/18 01/19/18 Range/Units 01:59 04:44 04:45 WBC 12.5 H (3.8-10.6) k/uL RBC 2.58 L (3.80-5.40) m/uL Hgb 7.7 L (11.4-16.0) gm/dL Hct 22.9 L (34.0-46.0) % Neutrophils # 10.9 H (1.3-7.7) k/uL Lymphocytes # 0.5 L (1.0-4.8) k/uL ABG pO2 (83-108) mmHg ABG HCO3 (21-25) mmol/L ABG Total CO2 (19-24) mmol/L Sodium (137-145) mmol/L Glucose (74-99) mg/dL POC Glucose (mg/dL) 140 H 132 H (75-99) mg/dL Calcium (8.4-10.2) mg/dL Phosphorus (2.5-4.5) mg/dL Magnesium (1.6-2.3) mg/dL Total Bilirubin (0.2-1.3) mg/dL AST (14-36) U/L Total Protein (6.3-8.2) g/dL Crossmatch 01/19/18 01/19/18 01/19/18 Range/Units 04:45 06:10 07:08 WBC (3.8-10.6) k/uL RBC (3.80-5.40) m/uL Hgb (11.4-16.0) gm/dL Hct (34.0-46.0) % Neutrophils # (1.3-7.7) k/uL Lymphocytes # (1.0-4.8) k/uL ABG pO2 (83-108) mmHg ABG HCO3 (21-25) mmol/L ABG Total CO2 (19-24) mmol/L Sodium 147 H (137-145) mmol/L Glucose 116 H (74-99) mg/dL POC Glucose (mg/dL) 132 H 140 H (75-99) mg/dL Calcium (8.4-10.2) mg/dL Phosphorus (2.5-4.5) mg/dL Magnesium 2.4 H (1.6-2.3) mg/dL Total Bilirubin 1.9 H (0.2-1.3) mg/dL AST 147 H (14-36) U/L Total Protein 5.9 L (6.3-8.2) g/dL Crossmatch 01/19/18 01/19/18 01/19/18 Range/Units 08:15 09:11 09:58 WBC (3.8-10.6) k/uL RBC (3.80-5.40) m/uL Hgb (11.4-16.0) gm/dL Hct (34.0-46.0) % Neutrophils # (1.3-7.7) k/uL Lymphocytes # (1.0-4.8) k/uL ABG pO2 (83-108) mmHg ABG HCO3 (21-25) mmol/L ABG Total CO2 (19-24) mmol/L Sodium (137-145) mmol/L Glucose (74-99) mg/dL POC Glucose (mg/dL) 128 H 133 H 132 H (75-99) mg/dL Calcium (8.4-10.2) mg/dL Phosphorus (2.5-4.5) mg/dL Magnesium (1.6-2.3) mg/dL Total Bilirubin (0.2-1.3) mg/dL AST (14-36) U/L Total Protein (6.3-8.2) g/dL Crossmatch 01/19/18 01/19/18 01/19/18 Range/Units 11:19 12:30 13:51 WBC (3.8-10.6) k/uL RBC (3.80-5.40) m/uL Hgb (11.4-16.0) gm/dL Hct (34.0-46.0) % Neutrophils # (1.3-7.7) k/uL Lymphocytes # (1.0-4.8) k/uL ABG pO2 (83-108) mmHg ABG HCO3 (21-25) mmol/L ABG Total CO2 (19-24) mmol/L Sodium (137-145) mmol/L Glucose (74-99) mg/dL POC Glucose (mg/dL) 134 H 133 H 148 H (75-99) mg/dL Calcium (8.4-10.2) mg/dL Phosphorus (2.5-4.5) mg/dL Magnesium (1.6-2.3) mg/dL Total Bilirubin (0.2-1.3) mg/dL AST (14-36) U/L Total Protein (6.3-8.2) g/dL Crossmatch 01/19/18 Range/Units 15:09 WBC (3.8-10.6) k/uL RBC (3.80-5.40) m/uL Hgb (11.4-16.0) gm/dL Hct (34.0-46.0) % Neutrophils # (1.3-7.7) k/uL Lymphocytes # (1.0-4.8) k/uL ABG pO2 (83-108) mmHg ABG HCO3 (21-25) mmol/L ABG Total CO2 (19-24) mmol/L Sodium (137-145) mmol/L Glucose (74-99) mg/dL POC Glucose (mg/dL) 149 H (75-99) mg/dL Calcium (8.4-10.2) mg/dL Phosphorus (2.5-4.5) mg/dL Magnesium (1.6-2.3) mg/dL Total Bilirubin (0.2-1.3) mg/dL AST (14-36) U/L Total Protein (6.3-8.2) g/dL Crossmatch Assessment and Plan Plan: -Respiratory failure acute, hypoxic secondary to post cardiac surgery and mitral valve repair surgery postoperative day 1: Presently extubated. Patient is presently still on milrinone -COPD patient is not wheezing at this point of time no further intervention at this point of time -Congestive heart failure chronic diastolic dysfunction without any acute exacerbation patient is not receiving any IV fluids at this point of time and continue to monitor for any heart failure exacerbation -Mitral stenosis status post mitral valve replacement as mentioned above -Atrial fibrillation patient will be resumed on anticoagulation with Coumadin whenever cardio thoracic surgery team believes it's appropriate appropriate patient is presently on subcutaneous heparin -CVA/TIA in the past -Hypertension
[2018-01-19] MEDS: KETOROLAC 30 MG/ML 1 ML VIAL IVP SCH ×2 (16:02→21:03)
[2018-01-19 16:12] LABS: Glucose,Whole Blood 134 mg/dL (75-99)
[2018-01-19 16:49] LABS: Glucose,Whole Blood 137 mg/dL (75-99)
[2018-01-19 16:57] LABS: HCT 21.3 % (34.0-46.0); HGB 7.1 gm/dL (11.4-16.0); MCH 29.7 pg (25.0-35.0); MCHC 33.4 g/dL (31.0-37.0); MCV 88.9 fL (80.0-100.0); Platelet Count 161 k/uL (150-450); RDW 14.6 % (11.5-15.5); WBC 14.3 k/uL (3.8-10.6)
[2018-01-19 18:22] LABS: Glucose,Whole Blood 131 mg/dL (75-99)
[2018-01-19 19:04] LABS: Glucose,Whole Blood 131 mg/dL (75-99)
[2018-01-19 20:09] LABS: Glucose,Whole Blood 138 mg/dL (75-99)
[2018-01-19 21:02] LABS: Glucose,Whole Blood 134 mg/dL (75-99)
[2018-01-19] MEDS: SENNOSIDES-DOCUSATE SODIUM 1 EACH TAB PO SCH (21:05)
[2018-01-19 22:04] LABS: Glucose,Whole Blood 142 mg/dL (75-99)
--- NOTE | 2018-01-19 22:14 | CONS ---
CONSULTATION Mrs. Lopez is a 62-year-old female, who is seen for cardiac evaluation in the postop cardiac period. This patient is known to , has a history of a severe mitral stenosis with a past history of mitral commissurotomy, fxglciyn-om-ledavi tricuspid valve regurgitation, longstanding pulmonary hypertension, atrial fibrillation and history of prior stroke as well as history of hyperlipidemia and history of coronary artery disease. The patient underwent a mitral valve replacement with 31 x 32 On-X mechanical mitral valve as well as a tricuspid valve repair was done. There was complete ligation of the left atrial appendage and intraoperative transesophageal echocardiogram was done. The patient tolerated the overall procedure well. At present, patient is extubated and is sitting in the bedside chair without any acute distress. She is having mild generalized pain and denies any significant shortness of breath. The patient's laboratory tests as well as the past history is reviewed and the current medications are reviewed. PHYSICAL EXAMINATION: Reveal the patient's vital signs: The heart rate is 70 per minute. Patient is afebrile. Oxygen saturation is 96%. Blood pressure is 100/60 mmHg. HEENT is negative. NECK: Supple. Jugular venous pressure is difficult to assess. HEART: First and second heart sounds are heard. There is a systolic murmur noted. Lungs reveal bilateral diminished air entry. Abdomen is soft and nontender. EXTREMITIES: There is no evidence of any leg edema. The patient's electrolytes reveal sodium is 147, creatinine is 0.84. Hemoglobin is 7.7. The patient's blood sugars are fairly well controlled. PA catheter shows pulmonary hypertension with pulmonary artery systolic pressure is 60-65. End-diastolic pressure is 22 mmHg. Cardiac index is 2.5. Chest x-ray shows mild pulmonary venous congestion. The patient's urine output is about 30-40 mL/hour. Patient diuresed well with IV Lasix this morning. FINAL IMPRESSION: 1. This patient is status post mitral valve replacement and tricuspid valve repair. The patient at present in no acute respiratory distress, but at present possibly appears to be mildly fluid overloaded. 2. The patient with severe pulmonary hypertension which is secondary to underlying mitral stenosis. 3. Persistent atrial fibrillation. RECOMMENDATIONS: At present, I will recommend to continue the treatment. I think the patient will need probably Lasix 40 mg IV q.12 hourly. If the patient's condition remains stable, we can consider the patient on a small dose of Revatio, which may help the patient's pulmonary artery pressure. We will discuss with cardiovascular surgeon. BILL / FATOUMATA: [id number] /
[2018-01-19 23:03] LABS: Glucose,Whole Blood 135 mg/dL (75-99)
[2018-01-20 00:09] LABS: Glucose,Whole Blood 139 mg/dL (75-99)
[2018-01-20 00:56] LABS: Glucose,Whole Blood 144 mg/dL (75-99)
[2018-01-20 02:06] LABS: Glucose,Whole Blood 140 mg/dL (75-99)
[2018-01-20 02:54] LABS: Glucose,Whole Blood 138 mg/dL (75-99)
[2018-01-20] MEDS: KETOROLAC 30 MG/ML 1 ML VIAL IVP SCH ×4 (03:50→21:20)
[2018-01-20 03:57] LABS: Glucose,Whole Blood 135 mg/dL (75-99)
[2018-01-20] MEDS: NOREPINEPHRINE 4 MG in SODIUM CHLORIDE 0.9% 250 ML IV SCH ×2 (03:57→14:30)
[2018-01-20 04:23] LABS: Basophils % (A) 0 %; Eosinophils % (A) 0 %; HCT 21.1 % (34.0-46.0); Lymphocytes # (A) 0.7 k/uL (1.0-4.8); Lymphocytes % (A) 5 %; MCH 29.6 pg (25.0-35.0); MCV 89.7 fL (80.0-100.0); Mean Platelet Volume 9.1; Monocytes # (A) 0.8 k/uL (0-1.0); Monocytes % (A) 6 %; Neutrophils # (A) 11.4 k/uL (1.3-7.7); Neutrophils % (A) 87 %; Platelet Count 160 k/uL (150-450); RBC 2.35 m/uL (3.80-5.40); RDW 14.6 % (11.5-15.5); WBC 13.2 k/uL (3.8-10.6)
[2018-01-20 04:33] LABS: Ionized Calcium 4.7 mg/dL (4.5-5.3)
[2018-01-20 04:46] LABS: ALT 21 U/L (9-52); AST 120 U/L (14-36); Albumin 3.6 g/dL (3.5-5.0); Alkaline Phosphatase 133 U/L (38-126); Anion Gap 11 mmol/L; Blood Urea Nitrogen 17 mg/dL (7-17); Calcium 8.7 mg/dL (8.4-10.2); Carbon Dioxide 27 mmol/L (22-30); Chloride 104 mmol/L (98-107); Glucose 124 mg/dL (74-99); Magnesium 2.3 mg/dL (1.6-2.3); Potassium 3.7 mmol/L (3.5-5.1); Sodium 142 mmol/L (137-145); Total Bilirubin 2.3 mg/dL (0.2-1.3); Total Protein 5.5 g/dL (6.3-8.2)
[2018-01-20 04:54] LABS: Glucose,Whole Blood 122 mg/dL (75-99)
[2018-01-20 05:54] LABS: Glucose,Whole Blood 129 mg/dL (75-99)
[2018-01-20] MEDS: LACTATED RINGERS 1,000 ML IV SCH ×3 (05:57→13:16)
[2018-01-20] MEDS ORDERED: POTASSIUM BICARBONATE/CIT AC 20 MEQ TABLET.EFF NG-TUBE SCH (06:00)
[2018-01-20 06:49] LABS: Glucose,Whole Blood 124 mg/dL (75-99)
--- NOTE | 2018-01-20 07:13 | XR ---
EXAMINATION TYPE: XR chest 1V portable DATE OF EXAM: 01/20/2018 Comparison: 01/19/2018 Clinical History: 62-year-old female Postop cardiac surgery Findings: Right IJ [place]-See catheter redemonstrated with tip in the proximal right main pulmonary artery. Tonya loplasty ring as well as a prosthetic cardiac valve are re-demonstrated. Heart remains borderline enl arged. Diffuse interstitial prominence is similar. Continued small pleural effusions with prominent b ibasilar opacities. 2 [address] remain in place, the right-sided drain continues to project to the right hilum. Impression: 1. Continued mild pulmonary vascular congestion. 2. Similar small pleural effusions with prominent bibasilar atelectasis and/or consolidation.
[2018-01-20] MEDS ORDERED: FUROSEMIDE 10 MG/ML 4 ML VIAL IV STA (07:31)
[2018-01-20] MEDS ORDERED: CALCIUM GLUCONATE 1,000 MG in SODIUM CHLORIDE 0.9% 100 ML IVPB ONE (08:00)
[2018-01-20 08:30] LABS: Glucose,Whole Blood 174 mg/dL (75-99)
[2018-01-20] MEDS: HEPARIN SODIUM,PORCINE 5,000 UNIT/ML 1 ML VIAL SQ SCH ×3 (08:34→23:52)
[2018-01-20] MEDS: ATORVASTATIN 40 MG TAB PO SCH (08:35)
[2018-01-20] MEDS: ASPIRIN 325 MG TAB PO SCH (08:35)
[2018-01-20] MEDS: MUPIROCIN 2% OINT 22 GM TUBE NASAL SCH ×2 (08:36→21:21)
[2018-01-20] MEDS: IPRATROPIUM-ALBUTEROL 3 ML NEB INHALATION SCH ×4 (08:49→19:43)
--- NOTE | 2018-01-20 08:51 | P.PN ---
Subjective Progress Note Date: 01/20/18 Principal diagnosis: Severe mitral valve stenosis, moderate to severe tricuspid valve regurgitation, status post mitral valve replacement and tricuspid valve repair, postop day 2 Consult dated 01/19/2018 62-year-old female postop day #1 status post mitral valve replacement and tricuspid valve repair. The surgery was done by Dr. Ibrahim. Currently, the patient's on O2 at 4 L by nasal cannula. Her IVs include norepinephrine at 6 mcg/m, insulin drip at 1.5 units per hour, lactated Ringer's at 50 mL an hour and Primacor 0.375 mcg/kg/m. The patient had excellent weaning parameters and blood gas and a positive cuff leak test and she was extubated last night. She has a history of atrial fibrillation valvular heart disease CAD heart failure COPD CVA hyperlipidemia hypertension myocardial infarction DJD and pneumonia. She also suffers from degenerative disc disease and chronic back pain and urinary incontinence and number of other major medical problems. Surgically, she status post thyroidectomy cholecystectomy heart catheterization with pretty procedures and tonsillectomy. On 01/20/2018 patient seen in follow-up in the intensive care unit. She is sitting up in a recliner, she is awake alert, denies any acute distress. On 6 L per high flow nasal cannula, with O2 sat at 98%. Maintenance IV fluid is LR at 50 ML per hour, Primacor at 0.125 mcg/kg/min, and insulin at 1 unit per hour. Patient is receiving 1 unit of PRBC, for a hemoglobin of 7.0, and patient was a bit hypotensive this morning with BP of 84/55, and his decision was made per cardiothoracic surgery to transfuse the patient. PA pressures are 75/30, cardiac output and index are 4.8 and 2.9 respectively. Patient is compliant with incentive spirometry and is able to achieve 1500 on it today. Patient has a ventricular epicardial wire, and is being paced at a rate of 70 BPM. Owusu catheter is in place, and the patient is making light zee colored urine, and the urine output has been ranging from 30-125 ML per hour. Patient is tolerating a full liquid diet, her pain is controlled. There are 2 mediastinal chest tubes draining serosanguineous output. Objective - Vital Signs Vital signs: Vital Signs Temp 99.1 F 01/20/18 08:00 Pulse 69 01/20/18 08:00 Resp 18 01/20/18 08:00 BP 102/53 01/20/18 08:00 Pulse Ox 98 01/20/18 08:00 Intake & Output 01/19/18 01/20/18 01/20/18 18:59 06:59 18:59 Intake Total 2372.432 1225.814 0 Output Total 975 945 Balance 1397.432 280.814 0 Weight 71 kg 69.3 kg Intake: IV 1158 787 ACETAMINOPHEN IV (For NPO 100 ) 1,000 mg In Empty Bag 1 bag @ 400 mls/hr IVPB Q6HR JUAN A Rx#:[id number] Albumin Human 5% 250 ml 250 In Empty Bag 1 bag @ 250 mls/hr IVPB Q1HR PRN Rx#: [id number] CO/CI 100 20 Lactated Ringers 1,000 ml 600 650 @ 50 mls/hr IV .Q20H JUANA Rx#:[id number] Pressure Bag: Normal 108 117 Saline Intake, IV Titration 477.432 438.814 Amount Calcium Gluconate 1,000 100 mg In Sodium Chloride 0.9 % 100 ml @ 100 mls/hr IVPB ONCE ONE Rx#: [id number] Insulin Regular 100 unit 19.754 7.797 In Sodium Chloride 0.9% 100 ml @ Per Protocol IV .Q0M JUAN A Rx#:[id number] Milrinone-D5w Pmx 20 mg 51.608 17.441 In Dextrose/Water 1 100ml .bag @ Per Protocol IV . Q0M [facility] Rx#:[id number] Norepinephrine 4 mg In 306.070 413.576 Sodium Chloride 0.9% 250 ml @ Titrate IV .Q0M JUAN A Rx#:[id number] Oral 737 Blood Product 0 Rc As-1 Unit 0 [id number] Output: Chest Tube Drainage 40 260 Lt [address] 40 260 Urine 935 685 Other: Voiding Method Indwelling Catheter Indwelling Catheter ABP, PAP, CO, CI - Last Documented Arterial Blood Pressure 85/38 Pulmonary Artery Pressure 63/23 Cardiac Output 5.1 Cardiac Index 3.1 - Exam GENERAL EXAM: Alert, pleasant, 62-year-old white female, comfortable in no apparent distress. HEAD: Normocephalic/atraumatic. EYES: Normal reaction of pupils, equal size. Conjunctiva pink, sclera white. NOSE: Clear with pink turbinates. THROAT: No erythema or exudates. NECK: No masses, no JVD, no thyroid enlargement, no adenopathy. CHEST: No chest wall deformity. Symmetrical expansion. Midsternal incision is clean dry and intact, 2 mediastinal chest tubes are in place, connected to wall suction, there is serosanguineous output and the Pleur-evac, ventricular epicardial wires connected to an external pacemaker and the patient is being V paced at a rate of 70 BPM. Patient has a heart heart is on LUNGS: Equal air entry with no crackles, wheeze, rhonchi or dullness. CVS: Regular rate and rhythm, normal S1 and S2, no gallops, no murmurs, no rubs ABDOMEN: Soft, nontender. No hepatosplenomegaly, normal bowel sounds, no guarding or rigidity. EXTREMITIES: No clubbing, no edema, no cyanosis, 2+ pulses and upper and lower extremities. Patient has SCDs on, and antiembolism stockings MUSCULOSKELETAL: Left-sided weakness from a previous CVA SPINE: No scoliosis or deformity SKIN: No rashes CENTRAL NERVOUS SYSTEM: Alert and oriented -3. No focal deficits, tone is normal in all 4 extremities. PSYCHIATRIC: Alert and oriented -3. Appropriate affect. Intact judgment and insight. - Labs CBC & Chem 7: 01/20/18 04:00 01/20/18 04:00 Labs: Abnormal Lab Results - Last 24 Hours (Table) 01/12/18 01/19/18 01/19/18 Range/Units 08:44 09:11 09:58 WBC (3.8-10.6) k/uL RBC (3.80-5.40) m/uL Hgb (11.4-16.0) gm/dL Hct (34.0-46.0) % Neutrophils # (1.3-7.7) k/uL Lymphocytes # (1.0-4.8) k/uL Glucose (74-99) mg/dL POC Glucose (mg/dL) 133 H 132 H (75-99) mg/dL Total Bilirubin (0.2-1.3) mg/dL AST (14-36) U/L Alkaline Phosphatase (38-126) U/L Total Protein (6.3-8.2) g/dL Crossmatch See Detail 01/19/18 01/19/18 01/19/18 Range/Units 11:19 12:30 13:51 WBC (3.8-10.6) k/uL RBC (3.80-5.40) m/uL Hgb (11.4-16.0) gm/dL Hct (34.0-46.0) % Neutrophils # (1.3-7.7) k/uL Lymphocytes # (1.0-4.8) k/uL Glucose (74-99) mg/dL POC Glucose (mg/dL) 134 H 133 H 148 H (75-99) mg/dL Total Bilirubin (0.2-1.3) mg/dL AST (14-36) U/L Alkaline Phosphatase (38-126) U/L Total Protein (6.3-8.2) g/dL Crossmatch 01/19/18 01/19/18 01/19/18 Range/Units 15:09 16:07 16:45 WBC 14.3 H (3.8-10.6) k/uL RBC 2.40 L (3.80-5.40) m/uL Hgb 7.1 L (11.4-16.0) gm/dL Hct 21.3 L (34.0-46.0) % Neutrophils # (1.3-7.7) k/uL Lymphocytes # (1.0-4.8) k/uL Glucose (74-99) mg/dL POC Glucose (mg/dL) 149 H 134 H (75-99) mg/dL Total Bilirubin (0.2-1.3) mg/dL AST (14-36) U/L Alkaline Phosphatase (38-126) U/L Total Protein (6.3-8.2) g/dL Crossmatch 01/19/18 01/19/18 01/19/18 Range/Units 16:47 18:20 19:02 WBC (3.8-10.6) k/uL RBC (3.80-5.40) m/uL Hgb (11.4-16.0) gm/dL Hct (34.0-46.0) % Neutrophils # (1.3-7.7) k/uL Lymphocytes # (1.0-4.8) k/uL Glucose (74-99) mg/dL POC Glucose (mg/dL) 137 H 131 H 131 H (75-99) mg/dL Total Bilirubin (0.2-1.3) mg/dL AST (14-36) U/L Alkaline Phosphatase (38-126) U/L Total Protein (6.3-8.2) g/dL Crossmatch 01/19/18 01/19/18 01/19/18 Range/Units 20:07 21:01 22:03 WBC (3.8-10.6) k/uL RBC (3.80-5.40) m/uL Hgb (11.4-16.0) gm/dL Hct (34.0-46.0) % Neutrophils # (1.3-7.7) k/uL Lymphocytes # (1.0-4.8) k/uL Glucose (74-99) mg/dL POC Glucose (mg/dL) 138 H 134 H 142 H (75-99) mg/dL Total Bilirubin (0.2-1.3) mg/dL AST (14-36) U/L Alkaline Phosphatase (38-126) U/L Total Protein (6.3-8.2) g/dL Crossmatch 01/19/18 01/20/18 01/20/18 Range/Units 23:01 00:08 00:55 WBC (3.8-10.6) k/uL RBC (3.80-5.40) m/uL Hgb (11.4-16.0) gm/dL Hct (34.0-46.0) % Neutrophils # (1.3-7.7) k/uL Lymphocytes # (1.0-4.8) k/uL Glucose (74-99) mg/dL POC Glucose (mg/dL) 135 H 139 H 144 H (75-99) mg/dL Total Bilirubin (0.2-1.3) mg/dL AST (14-36) U/L Alkaline Phosphatase (38-126) U/L Total Protein (6.3-8.2) g/dL Crossmatch 01/20/18 01/20/18 01/20/18 Range/Units 02:04 02:52 03:56 WBC (3.8-10.6) k/uL RBC (3.80-5.40) m/uL Hgb (11.4-16.0) gm/dL Hct (34.0-46.0) % Neutrophils # (1.3-7.7) k/uL Lymphocytes # (1.0-4.8) k/uL Glucose (74-99) mg/dL POC Glucose (mg/dL) 140 H 138 H 135 H (75-99) mg/dL Total Bilirubin (0.2-1.3) mg/dL AST (14-36) U/L Alkaline Phosphatase (38-126) U/L Total Protein (6.3-8.2) g/dL Crossmatch 01/20/18 01/20/18 01/20/18 Range/Units 04:00 04:00 04:51 WBC 13.2 H (3.8-10.6) k/uL RBC 2.35 L (3.80-5.40) m/uL Hgb 7.0 L* (11.4-16.0) gm/dL Hct 21.1 L (34.0-46.0) % Neutrophils # 11.4 H (1.3-7.7) k/uL Lymphocytes # 0.7 L (1.0-4.8) k/uL Glucose 124 H (74-99) mg/dL POC Glucose (mg/dL) 122 H (75-99) mg/dL Total Bilirubin 2.3 H (0.2-1.3) mg/dL AST 120 H (14-36) U/L Alkaline Phosphatase 133 H (38-126) U/L Total Protein 5.5 L (6.3-8.2) g/dL Crossmatch 01/20/18 01/20/18 01/20/18 Range/Units 05:53 06:48 08:27 WBC (3.8-10.6) k/uL RBC (3.80-5.40) m/uL Hgb (11.4-16.0) gm/dL Hct (34.0-46.0) % Neutrophils # (1.3-7.7) k/uL Lymphocytes # (1.0-4.8) k/uL Glucose (74-99) mg/dL POC Glucose (mg/dL) 129 H 124 H 174 H (75-99) mg/dL Total Bilirubin (0.2-1.3) mg/dL AST (14-36) U/L Alkaline Phosphatase (38-126) U/L Total Protein (6.3-8.2) g/dL Crossmatch Assessment and Plan Plan: Assessment: Severe mitral stenosis and moderate to severe tricuspid regurgitation, status post mitral valve replacement tricuspid valve repair, postop day 2 Postoperative respiratory failure, resolved History of atrial fibrillation History of CAD History of heart failure History of COPD History of CVA/TIA Hyperlipidemia by history Hypertension by history Previous history of myocardial infarction DJD/degenerative disc disease History of pneumonia Previous history of urinary tract infection with sepsis Plan: Continue encouraging deep breathing and coughing, continue encouraging incentive spirometry use. Today's chest x-ray shows mild pulmonary vascular congestion, and small pleural effusions with prominent bibasilar atelectasis. Patient is receiving a unit of PRBCs, CT surgery is planning on removing the Avenel Jarrell catheter. Increase activity, continue to follow I performed a history & physical examination of the patient and discussed their management with my nurse practitioner, Noemi Donald. I reviewed the nurse practitioner's note and agree with the documented findings and plan of care. Lung sounds are clear, initially at the bases. The findings and the impression was discussed with the patient. I attest to the documentation by the nurse practitioner. Critical care time is over 30 minutes Time with Patient: Greater than 30
[2018-01-20 09:16] LABS: Glucose,Whole Blood 172 mg/dL (75-99)
[2018-01-20 10:04] LABS: Glucose,Whole Blood 140 mg/dL (75-99)
[2018-01-20 11:07] LABS: Glucose,Whole Blood 124 mg/dL (75-99)
--- NOTE | 2018-01-20 11:24 | P.PN ---
Subjective Progress Note Date: 01/20/18 Principal diagnosis: Severe mitral valve stenosis, moderate to severe tricuspid valve regurgitation, long-standing persistent atrial fibrillation, COPD, history of CVA 2 with residual left-sided weakness, hypertension, hyperlipidemia, history of myocardial infarction, history of coronary artery disease, osteoarthritis, chronic low back pain, degenerative disc disease, history of ASD with closure in 2012, history of congestive heart failure, chronic tobacco dependence, history of pneumonia requiring intubation. POD #2 mitral valve replacement with a number 31-33 On-X mechanical mitral valve , tricuspid valve repair with a #32 mm MC 3 tricuspid ring, clip ligation of the left atrial appendage with a #32 x 45 mm atrial clip, intraoperative transesophageal echocardiogram. Patient is currently sitting up to the bedside chair. She is in no acute distress. She denies any complaints of shortness of breath or pain at this time. She reports that she feels somewhat improved today and is more alert. She is coughing and deep breathing and demonstrating good use on her incentive spirometry. Objective - Vital Signs Vital signs: Vital Signs Temp 99.5 F 01/20/18 10:08 Pulse 69 01/20/18 10:08 Resp 16 01/20/18 10:08 BP 114/52 01/20/18 10:08 Pulse Ox 97 01/20/18 10:08 Intake & Output 01/19/18 01/20/18 01/20/18 18:59 06:59 18:59 Intake Total 2372.432 1225.814 820.508 Output Total 975 945 110 Balance 1397.432 280.814 710.508 Weight 71 kg 69.3 kg Intake: IV 1158 787 117 ACETAMINOPHEN IV (For NPO 100 ) 1,000 mg In Empty Bag 1 bag @ 400 mls/hr IVPB Q6HR [facility] Rx#:[id number] Albumin Human 5% 250 ml 250 In Empty Bag 1 bag @ 250 mls/hr IVPB Q1HR PRN Rx#: [id number] CO/CI 100 20 30 Lactated Ringers 1,000 ml 600 650 60 @ 20 mls/hr IV .Q24H [facility] Rx#:[id number] Pressure Bag: Normal 108 117 27 Saline Intake, IV Titration 477.432 438.814 153.508 Amount Calcium Gluconate 1,000 100 mg In Sodium Chloride 0.9 % 100 ml @ 100 mls/hr IVPB ONCE ONE Rx#: [id number] Insulin Regular 100 unit 19.754 7.797 16.602 In Sodium Chloride 0.9% 100 ml @ Per Protocol IV .Q0M [facility] Rx#:[id number] Milrinone-D5w Pmx 20 mg 51.608 17.441 In Dextrose/Water 1 100ml .bag @ Per Protocol IV . Q0M [facility] Rx#:[id number] Norepinephrine 4 mg In 306.070 413.576 136.906 Sodium Chloride 0.9% 250 ml @ Titrate IV .Q0M [facility] Rx#:[id number] Oral 737 240 Blood Product 310 Rc As-1 Unit 310 [id number] Output: Chest Tube Drainage 40 260 0 Lt and Rt medistinal CT 40 260 0 Urine 935 685 110 Other: Voiding Method Indwelling Catheter Indwelling Catheter Indwelling Catheter ABP, PAP, CO, CI - Last Documented Arterial Blood Pressure 96/45 Pulmonary Artery Pressure 78/31 Cardiac Output 4.8 Cardiac Index 3.1 - Constitutional General appearance: Present: cooperative, no acute distress, thin - Respiratory Details: Lung sounds are essentially clear to her bilateral upper lobes, few scattered crackles to her bases. Respirations are symmetrical and nonlabored. Oxygen saturation are 98% on 6 L nasal cannula. She is achieving 500 mL on her incentive spirometry. Mediastinal chest tubes without air leak, draining thin serosanguineous drainage. 180 mL output in the last 8 hours, 400 mL output in the last 24 hours. - Cardiovascular Details: Regular rhythm and rate. S1 and S2 present, negative for S3, gallop or murmur. Sternum is stable. Bedside telemetry showing ventricular paced rhythm heart rate 70. Underlying rhythm is third degree heart block with a rate of 48. Epicardial ventricular pacemaker wires intact and to backup generator with a rate of 70. Right IJ Cordis in place with [place]-See catheter patent and functioning. Cardiac output is 4.8, cardiac index 2.9, PA pressures 72/28, CVP 12. Right radial arterial line in place and functioning. Knee-high ROSALIE hose and sequential compression devices in place to her bilateral lower extremities. - Gastrointestinal Gastrointestinal Comment(s): Abdomen is soft, nontender nondistended. Hypoactive bowel sounds to all 4 abdominal quadrants. Tolerating oral intake. Passing flatus. - Genitourinary Genitourinary Comment(s): Owusu catheter for accurate I&O. Draining clear zee urine. 455 mL output in the last 8 hours. - Integumentary Integumentary Comment(s): Skin is warm and dry. No clubbing or cyanosis present. Midline sternal incision clean and dry and approximated. Dermabond dressing clean and dry. - Neurologic Neurologic: Present: CNII-XII intact - Musculoskeletal Musculoskeletal: Present: gait normal, strength equal bilaterally, left sided weakness (She is a previous history of left-sided weakness from previous stroke) - Psychiatric Psychiatric: Present: A&O x's 3, appropriate affect, intact judgment & insight - Allied health notes Allied health notes reviewed: nursing - Labs CBC & Chem 7: 01/20/18 04:00 01/20/18 04:00 Labs: Abnormal Lab Results - Last 24 Hours (Table) 01/12/18 01/19/18 01/19/18 Range/Units 08:44 11:19 12:30 WBC (3.8-10.6) k/uL RBC (3.80-5.40) m/uL Hgb (11.4-16.0) gm/dL Hct (34.0-46.0) % Neutrophils # (1.3-7.7) k/uL Lymphocytes # (1.0-4.8) k/uL Glucose (74-99) mg/dL POC Glucose (mg/dL) 134 H 133 H (75-99) mg/dL Total Bilirubin (0.2-1.3) mg/dL AST (14-36) U/L Alkaline Phosphatase (38-126) U/L Total Protein (6.3-8.2) g/dL Crossmatch See Detail 01/19/18 01/19/18 01/19/18 Range/Units 13:51 15:09 16:07 WBC (3.8-10.6) k/uL RBC (3.80-5.40) m/uL Hgb (11.4-16.0) gm/dL Hct (34.0-46.0) % Neutrophils # (1.3-7.7) k/uL Lymphocytes # (1.0-4.8) k/uL Glucose (74-99) mg/dL POC Glucose (mg/dL) 148 H 149 H 134 H (75-99) mg/dL Total Bilirubin (0.2-1.3) mg/dL AST (14-36) U/L Alkaline Phosphatase (38-126) U/L Total Protein (6.3-8.2) g/dL Crossmatch 01/19/18 01/19/18 01/19/18 Range/Units 16:45 16:47 18:20 WBC 14.3 H (3.8-10.6) k/uL RBC 2.40 L (3.80-5.40) m/uL Hgb 7.1 L (11.4-16.0) gm/dL Hct 21.3 L (34.0-46.0) % Neutrophils # (1.3-7.7) k/uL Lymphocytes # (1.0-4.8) k/uL Glucose (74-99) mg/dL POC Glucose (mg/dL) 137 H 131 H (75-99) mg/dL Total Bilirubin (0.2-1.3) mg/dL AST (14-36) U/L Alkaline Phosphatase (38-126) U/L Total Protein (6.3-8.2) g/dL Crossmatch 01/19/18 01/19/18 01/19/18 Range/Units 19:02 20:07 21:01 WBC (3.8-10.6) k/uL RBC (3.80-5.40) m/uL Hgb (11.4-16.0) gm/dL Hct (34.0-46.0) % Neutrophils # (1.3-7.7) k/uL Lymphocytes # (1.0-4.8) k/uL Glucose (74-99) mg/dL POC Glucose (mg/dL) 131 H 138 H 134 H (75-99) mg/dL Total Bilirubin (0.2-1.3) mg/dL AST (14-36) U/L Alkaline Phosphatase (38-126) U/L Total Protein (6.3-8.2) g/dL Crossmatch 01/19/18 01/19/18 01/20/18 Range/Units 22:03 23:01 00:08 WBC (3.8-10.6) k/uL RBC (3.80-5.40) m/uL Hgb (11.4-16.0) gm/dL Hct (34.0-46.0) % Neutrophils # (1.3-7.7) k/uL Lymphocytes # (1.0-4.8) k/uL Glucose (74-99) mg/dL POC Glucose (mg/dL) 142 H 135 H 139 H (75-99) mg/dL Total Bilirubin (0.2-1.3) mg/dL AST (14-36) U/L Alkaline Phosphatase (38-126) U/L Total Protein (6.3-8.2) g/dL Crossmatch 01/20/18 01/20/18 01/20/18 Range/Units 00:55 02:04 02:52 WBC (3.8-10.6) k/uL RBC (3.80-5.40) m/uL Hgb (11.4-16.0) gm/dL Hct (34.0-46.0) % Neutrophils # (1.3-7.7) k/uL Lymphocytes # (1.0-4.8) k/uL Glucose (74-99) mg/dL POC Glucose (mg/dL) 144 H 140 H 138 H (75-99) mg/dL Total Bilirubin (0.2-1.3) mg/dL AST (14-36) U/L Alkaline Phosphatase (38-126) U/L Total Protein (6.3-8.2) g/dL Crossmatch 01/20/18 01/20/18 01/20/18 Range/Units 03:56 04:00 04:00 WBC 13.2 H (3.8-10.6) k/uL RBC 2.35 L (3.80-5.40) m/uL Hgb 7.0 L* (11.4-16.0) gm/dL Hct 21.1 L (34.0-46.0) % Neutrophils # 11.4 H (1.3-7.7) k/uL Lymphocytes # 0.7 L (1.0-4.8) k/uL Glucose 124 H (74-99) mg/dL POC Glucose (mg/dL) 135 H (75-99) mg/dL Total Bilirubin 2.3 H (0.2-1.3) mg/dL AST 120 H (14-36) U/L Alkaline Phosphatase 133 H (38-126) U/L Total Protein 5.5 L (6.3-8.2) g/dL Crossmatch 01/20/18 01/20/18 01/20/18 Range/Units 04:51 05:53 06:48 WBC (3.8-10.6) k/uL RBC (3.80-5.40) m/uL Hgb (11.4-16.0) gm/dL Hct (34.0-46.0) % Neutrophils # (1.3-7.7) k/uL Lymphocytes # (1.0-4.8) k/uL Glucose (74-99) mg/dL POC Glucose (mg/dL) 122 H 129 H 124 H (75-99) mg/dL Total Bilirubin (0.2-1.3) mg/dL AST (14-36) U/L Alkaline Phosphatase (38-126) U/L Total Protein (6.3-8.2) g/dL Crossmatch 01/20/18 01/20/18 01/20/18 Range/Units 08:27 09:15 10:02 WBC (3.8-10.6) k/uL RBC (3.80-5.40) m/uL Hgb (11.4-16.0) gm/dL Hct (34.0-46.0) % Neutrophils # (1.3-7.7) k/uL Lymphocytes # (1.0-4.8) k/uL Glucose (74-99) mg/dL POC Glucose (mg/dL) 174 H 172 H 140 H (75-99) mg/dL Total Bilirubin (0.2-1.3) mg/dL AST (14-36) U/L Alkaline Phosphatase (38-126) U/L Total Protein (6.3-8.2) g/dL Crossmatch 01/20/18 Range/Units 11:04 WBC (3.8-10.6) k/uL RBC (3.80-5.40) m/uL Hgb (11.4-16.0) gm/dL Hct (34.0-46.0) % Neutrophils # (1.3-7.7) k/uL Lymphocytes # (1.0-4.8) k/uL Glucose (74-99) mg/dL POC Glucose (mg/dL) 124 H (75-99) mg/dL Total Bilirubin (0.2-1.3) mg/dL AST (14-36) U/L Alkaline Phosphatase (38-126) U/L Total Protein (6.3-8.2) g/dL Crossmatch - Imaging and Cardiology Chest x-ray: report reviewed, image reviewed Assessment and Plan (1) Persistent atrial fibrillation Current Visit: Yes Status: Acute Code(s): I48.1 - PERSISTENT ATRIAL FIBRILLATION SNOMED Code(s): 626303278 (2) Nicotine dependence Current Visit: Yes Status: Acute Code(s): F17.200 - NICOTINE DEPENDENCE, UNSPECIFIED, UNCOMPLICATED SNOMED Code(s): 98807119 (3) Hypertension Current Visit: Yes Status: Acute Code(s): I10 - ESSENTIAL (PRIMARY) HYPERTENSION SNOMED Code(s): 07269548 (4) Hyperlipidemia Current Visit: Yes Status: Acute Code(s): E78.5 - HYPERLIPIDEMIA, UNSPECIFIED SNOMED Code(s): 46230702 (5) CHF (congestive heart failure) Current Visit: No Status: Acute Code(s): I50.9 - HEART FAILURE, UNSPECIFIED SNOMED Code(s): 19705763 (6) COPD (chronic obstructive pulmonary disease) Current Visit: No Status: Acute Code(s): J44.9 - CHRONIC OBSTRUCTIVE PULMONARY DISEASE, UNSPECIFIED SNOMED Code(s): 45952224 (7) Diastolic CHF, acute on chronic Current Visit: No Status: Acute Code(s): I50.33 - ACUTE ON CHRONIC DIASTOLIC (CONGESTIVE) HEART FAILURE SNOMED Code(s): 597721515 (8) History of pneumonia Current Visit: No Status: Acute Code(s): Z87.01 - PERSONAL HISTORY OF PNEUMONIA (RECURRENT) SNOMED Code(s): 918006267 (9) Mitral stenosis Current Visit: No Status: Acute Code(s): I05.0 - RHEUMATIC MITRAL STENOSIS SNOMED Code(s): 50199451 (10) Status post patch closure of ASD Current Visit: No Status: Acute Code(s): Z98.890 - OTHER SPECIFIED POSTPROCEDURAL STATES; Z87.74 - PERSONAL HISTORY OF CONGENITAL MALFORM OF HEART AND CIRC SYS SNOMED Code(s): 466849880 (11) Chronic a-fib Current Visit: No Status: Chronic Code(s): I48.2 - CHRONIC ATRIAL FIBRILLATION SNOMED Code(s): 799320679 (12) History of CVA (cerebrovascular accident) Current Visit: No Status: Chronic Code(s): Z86.73 - PRSNL HX OF TIA (TIA), AND CEREB INFRC W/O RESID DEFICITS SNOMED Code(s): 706872862 (13) Mitral valve stenosis, severe Current Visit: No Status: Chronic Code(s): I05.0 - RHEUMATIC MITRAL STENOSIS SNOMED Code(s): 08500008 (14) Noncompliance Current Visit: No Status: Chronic Code(s): Z91.19 - PATIENT'S NONCOMPLIANCE W OTH MEDICAL TREATMENT AND REGIMEN SNOMED Code(s): 5812547 Plan: 1. Continue aspirin, statin, and heparin subcu. Continue to hold beta tay today. 2. Discontinue Primacor drip. 3. Wean norepinephrine as tolerated. 4. Pulmonary management per Dr. Casarez's recommendations. Encourage use of her incentive spirometry every hour while awake. 5. Increase activity as tolerated. Out of bed for all meals. Physical therapy , occupational therapy and cardiac rehab consulted. 6. Blood sugar management and medical management per primary care service. 7. Keep ventricular epicardial pacemaker wires in place with a VVI backup mode heart rate of 70 bpm. 8. Lasix 40 mg IV 1 today after 1 unit of PRBCs has been infused. 9. Continue Toradol 15 mg IV every 6 hours when necessary pain. 10. GI/DVT prophylaxis. 11. We will monitor daily labs and chest x-rays. 12. Reinforced the importance of smoking cessation and continue smoking cessation education. 13. Continue chest tubes to low continuous wall suction -20 cm H2O. 14. Remove [place]-See catheter we will place her right IJ cordis to continuous CVP monitoring. 15. 1 g of calcium gluconate IV piggyback 1 now 16. More recommendations to follow based on the patient's clinical course. Time with Patient: Greater than 30
[2018-01-20 12:04] LABS: Glucose,Whole Blood 129 mg/dL (75-99)
[2018-01-20 13:16] LABS: Glucose,Whole Blood 127 mg/dL (75-99)
[2018-01-20 14:03] LABS: Glucose,Whole Blood 125 mg/dL (75-99)
[2018-01-20 15:09] LABS: Glucose,Whole Blood 117 mg/dL (75-99)
[2018-01-20 15:21] LABS: Basophils % (A) 0 %; Eosinophils # (A) 0.1 k/uL (0-0.7); Eosinophils % (A) 1 %; HCT 23.9 % (34.0-46.0); HGB 8.1 gm/dL (11.4-16.0); Lymphocytes # (A) 0.6 k/uL (1.0-4.8); Lymphocytes % (A) 6 %; MCH 30.3 pg (25.0-35.0); MCV 89.1 fL (80.0-100.0); Mean Platelet Volume 8.6; Monocytes # (A) 0.5 k/uL (0-1.0); Monocytes % (A) 5 %; Neutrophils # (A) 9.6 k/uL (1.3-7.7); Neutrophils % (A) 87 %; Platelet Count 146 k/uL (150-450); RBC 2.68 m/uL (3.80-5.40); RDW 14.4 % (11.5-15.5)
[2018-01-20 16:12] LABS: Glucose,Whole Blood 110 mg/dL (75-99)
[2018-01-20 17:06] LABS: Glucose,Whole Blood 90 mg/dL (75-99)
[2018-01-20 18:05] LABS: Glucose,Whole Blood 102 mg/dL (75-99)
[2018-01-20 18:59] LABS: Glucose,Whole Blood 127 mg/dL (75-99)
[2018-01-20 19:38] LABS: Glucose,Whole Blood 123 mg/dL (75-99)
[2018-01-20 19:46] LABS: Glucose,Whole Blood 128 mg/dL (75-99)
[2018-01-20 21:06] LABS: Glucose,Whole Blood 120 mg/dL (75-99)
[2018-01-20] MEDS: SENNOSIDES-DOCUSATE SODIUM 1 EACH TAB PO SCH (21:19)
[2018-01-20] MEDS: ESCITALOPRAM 10 MG TAB PO SCH (21:19)
[2018-01-20 22:06] LABS: Glucose,Whole Blood 118 mg/dL (75-99)
[2018-01-20 23:56] LABS: Glucose,Whole Blood 102 mg/dL (75-99)
[2018-01-21 01:02] LABS: Glucose,Whole Blood 109 mg/dL (75-99)
[2018-01-21 02:25] LABS: Glucose,Whole Blood 110 mg/dL (75-99)
[2018-01-21 03:07] LABS: Glucose,Whole Blood 115 mg/dL (75-99)
[2018-01-21] MEDS: KETOROLAC 30 MG/ML 1 ML VIAL IVP SCH ×4 (03:37→20:53)
[2018-01-21 04:14] LABS: Glucose,Whole Blood 123 mg/dL (75-99)
[2018-01-21 04:44] LABS: Glucose,Whole Blood 116 mg/dL (75-99)
[2018-01-21 05:00] LABS: Basophils % (A) 0 %; Eosinophils # (A) 0.1 k/uL (0-0.7); Eosinophils % (A) 1 %; HCT 23.2 % (34.0-46.0); HGB 7.6 gm/dL (11.4-16.0); Lymphocytes # (A) 0.5 k/uL (1.0-4.8); Lymphocytes % (A) 7 %; MCH 29.5 pg (25.0-35.0); MCHC 32.8 g/dL (31.0-37.0); MCV 90.1 fL (80.0-100.0); Monocytes # (A) 0.4 k/uL (0-1.0); Monocytes % (A) 6 %; Neutrophils # (A) 6.3 k/uL (1.3-7.7); Neutrophils % (A) 85 %; Platelet Count 136 k/uL (150-450); RBC 2.58 m/uL (3.80-5.40); RDW 14.8 % (11.5-15.5); WBC 7.5 k/uL (3.8-10.6)
[2018-01-21 06:26] LABS: ALT 21 U/L (9-52); AST 97 U/L (14-36); Albumin 3.2 g/dL (3.5-5.0); Alkaline Phosphatase 203 U/L (38-126); Anion Gap 11 mmol/L; Blood Urea Nitrogen 15 mg/dL (7-17); Calcium 8.4 mg/dL (8.4-10.2); Carbon Dioxide 28 mmol/L (22-30); Chloride 105 mmol/L (98-107); Glucose 111 mg/dL (74-99); Sodium 144 mmol/L (137-145); Total Bilirubin 2.9 mg/dL (0.2-1.3); Total Protein 5.2 g/dL (6.3-8.2)
[2018-01-21 06:28] LABS: Glucose,Whole Blood 117 mg/dL (75-99)
[2018-01-21] MEDS ORDERED: FUROSEMIDE 10 MG/ML 4 ML VIAL IV STA (06:43)
[2018-01-21 07:02] LABS: Glucose,Whole Blood 118 mg/dL (75-99)
[2018-01-21] MEDS: IPRATROPIUM-ALBUTEROL 3 ML NEB INHALATION SCH ×5 (07:30→19:13)
--- NOTE | 2018-01-21 08:08 | XR ---
EXAMINATION TYPE: XR chest 1V portable DATE OF EXAM: 01/21/2018 COMPARISON: 01/20/2018 HISTORY: Postop cardiac surgery. Follow-up exam. TECHNIQUE: Single frontal view of the chest is obtained. FINDINGS: Mediastinal drains, mediastinal clips, median sternotomy wires, aortic prosthetic valve, c ardiac closure device and right-sided internal jugular central venous catheter sheath are unchanged. Removal of the [place]-See catheter. Cardiomegaly and bilateral layering small pleural effusions with associated bibasilar airspace disease are also unchanged in the interim. Osseous structures are intac t. IMPRESSION: Interval removal of the [place]-See catheter. Similar-appearing small layering pleural eff usions with associated bibasilar airspace disease, likely atelectasis.
[2018-01-21] MEDS: ATORVASTATIN 40 MG TAB PO SCH (08:27)
[2018-01-21] MEDS: HEPARIN SODIUM,PORCINE 5,000 UNIT/ML 1 ML VIAL SQ SCH ×2 (08:27→18:27)
[2018-01-21] MEDS: PANTOPRAZOLE 40 MG TABLET PO SCH (08:27)
[2018-01-21] MEDS: ASPIRIN 325 MG TAB PO SCH (08:27)
[2018-01-21] MEDS: MUPIROCIN 2% OINT 22 GM TUBE NASAL SCH ×2 (08:28→20:54)
[2018-01-21 08:42] LABS: Glucose,Whole Blood 171 mg/dL (75-99)
--- NOTE | 2018-01-21 09:14 | P.PN ---
Subjective Progress Note Date: 01/21/18 Principal diagnosis: Status post mitral valve replacement and tricuspid valve repair Progress note dated 01/21/2018 This is a 62-year-old female who is postop day #3, status post mitral valve replacement and tricuspid valve repair. Thought to 6 L nasal cannula. The patient remains on norepinephrine at 4 mics per minute insulin drip at half a unit per hour and lactated Ringer's at 20 mL an hour. The patient seemed be doing relatively well. The surgery was done by Dr. Ibrahim. The patient has a history of atrial fibrillation, valvular heart disease, CAD, heart failure, COPD , CVA, hyperlipidemia, hypertension, myocardial infarction, DJD and pneumonia. She also suffers some degenerative disc disease and chronic back pain. The patient is doing well in general. She denies chest pain or chest discomfort. No shortness of breath or difficulty breathing. No coughing wheezing or phlegm production. No nausea vomiting or diarrhea. Objective - Vital Signs Vital signs: Vital Signs Temp 98.4 F 01/21/18 08:00 Pulse 69 01/21/18 09:00 Resp 17 01/21/18 09:00 BP 90/61 01/21/18 09:00 Pulse Ox 100 01/21/18 09:00 Intake & Output 01/20/18 01/21/18 01/21/18 18:59 06:59 18:59 Intake Total 1444.172 642.659 174.267 Output Total 2075 644 275 Balance -630.828 -1.341 -100.733 Weight 68.9 kg Intake: IV 428 312 72 CO/CI 30 Calcium Gluconate 1,000 100 mg In Sodium Chloride 0.9 % 100 ml @ 100 mls/hr IVPB ONCE ONE Rx#: [id number] Lactated Ringers 1,000 ml 220 240 60 @ 20 mls/hr IV .Q24H [facility] Rx#:[id number] Pressure Bag: Normal 78 72 12 Saline Intake, IV Titration 246.172 150.659 2.267 Amount Insulin Regular 100 unit 28.177 5.308 2.267 In Sodium Chloride 0.9% 100 ml @ Per Protocol IV .Q0M [facility] Rx#:[id number] Norepinephrine 4 mg In 217.995 145.351 Sodium Chloride 0.9% 250 ml @ Titrate IV .Q0M [facility] Rx#:[id number] Oral 360 180 100 Tube Feeding 100 Blood Product 310 Rc As-1 Unit 310 [id number] Output: Chest Tube Drainage 330 299 50 Lt and Rt medistinal CT 330 299 50 Urine 1745 345 225 Other: Voiding Method Indwelling Catheter Bedside Commode Bedside Commode ABP, PAP, CO, CI - Last Documented Arterial Blood Pressure 106/57 Pulmonary Artery Pressure 64/26 Cardiac Output 4.8 Cardiac Index 3.1 - Exam No acute distress, oriented 3. Nasal O2 in place. HEENT examination is grossly unremarkable. Mucous membranes are moist. No oral lesions. Neck supple. Full range of motion. No adenopathy thyromegaly or neck vein distention. Cardiovascular examination reveals regular rhythm rate. S1-S2 normal. No S3 or S4. No discernible murmur noted. Lungs reveal a few scattered rhonchi. Some crackles are noted at the bases. Breath sounds are equal bilaterally. There was no prolongation on forced maneuver.. Abdomen soft bowel sounds are heard. No masses or tenderness. Extremities are intact. No cyanosis clubbing or edema. Skin is without rash or lesion. Neurologic examination is brief but nonfocal. - Labs CBC & Chem 7: 01/21/18 04:44 01/21/18 04:44 Labs: Abnormal Lab Results - Last 24 Hours (Table) 01/12/18 01/20/18 01/20/18 Range/Units 08:44 06:49 09:15 WBC (3.8-10.6) k/uL RBC (3.80-5.40) m/uL Hgb (11.4-16.0) gm/dL Hct (34.0-46.0) % Plt Count (150-450) k/uL Neutrophils # (1.3-7.7) k/uL Lymphocytes # (1.0-4.8) k/uL Glucose (74-99) mg/dL POC Glucose (mg/dL) 172 H (75-99) mg/dL Total Bilirubin (0.2-1.3) mg/dL AST (14-36) U/L Alkaline Phosphatase (38-126) U/L Total Protein (6.3-8.2) g/dL Albumin (3.5-5.0) g/dL Crossmatch See Detail See Detail 01/20/18 01/20/18 01/20/18 Range/Units 10:02 11:04 12:02 WBC (3.8-10.6) k/uL RBC (3.80-5.40) m/uL Hgb (11.4-16.0) gm/dL Hct (34.0-46.0) % Plt Count (150-450) k/uL Neutrophils # (1.3-7.7) k/uL Lymphocytes # (1.0-4.8) k/uL Glucose (74-99) mg/dL POC Glucose (mg/dL) 140 H 124 H 129 H (75-99) mg/dL Total Bilirubin (0.2-1.3) mg/dL AST (14-36) U/L Alkaline Phosphatase (38-126) U/L Total Protein (6.3-8.2) g/dL Albumin (3.5-5.0) g/dL Crossmatch 01/20/18 01/20/18 01/20/18 Range/Units 13:14 14:02 15:05 WBC 11.0 H (3.8-10.6) k/uL RBC 2.68 L (3.80-5.40) m/uL Hgb 8.1 L (11.4-16.0) gm/dL Hct 23.9 L (34.0-46.0) % Plt Count 146 L (150-450) k/uL Neutrophils # 9.6 H (1.3-7.7) k/uL Lymphocytes # 0.6 L (1.0-4.8) k/uL Glucose (74-99) mg/dL POC Glucose (mg/dL) 127 H 125 H (75-99) mg/dL Total Bilirubin (0.2-1.3) mg/dL AST (14-36) U/L Alkaline Phosphatase (38-126) U/L Total Protein (6.3-8.2) g/dL Albumin (3.5-5.0) g/dL Crossmatch 01/20/18 01/20/18 01/20/18 Range/Units 15:07 16:11 18:03 WBC (3.8-10.6) k/uL RBC (3.80-5.40) m/uL Hgb (11.4-16.0) gm/dL Hct (34.0-46.0) % Plt Count (150-450) k/uL Neutrophils # (1.3-7.7) k/uL Lymphocytes # (1.0-4.8) k/uL Glucose (74-99) mg/dL POC Glucose (mg/dL) 117 H 110 H 102 H (75-99) mg/dL Total Bilirubin (0.2-1.3) mg/dL AST (14-36) U/L Alkaline Phosphatase (38-126) U/L Total Protein (6.3-8.2) g/dL Albumin (3.5-5.0) g/dL Crossmatch 01/20/18 01/20/18 01/20/18 Range/Units 18:57 19:35 19:45 WBC (3.8-10.6) k/uL RBC (3.80-5.40) m/uL Hgb (11.4-16.0) gm/dL Hct (34.0-46.0) % Plt Count (150-450) k/uL Neutrophils # (1.3-7.7) k/uL Lymphocytes # (1.0-4.8) k/uL Glucose (74-99) mg/dL POC Glucose (mg/dL) 127 H 123 H 128 H (75-99) mg/dL Total Bilirubin (0.2-1.3) mg/dL AST (14-36) U/L Alkaline Phosphatase (38-126) U/L Total Protein (6.3-8.2) g/dL Albumin (3.5-5.0) g/dL Crossmatch 01/20/18 01/20/18 01/20/18 Range/Units 21:05 21:55 23:55 WBC (3.8-10.6) k/uL RBC (3.80-5.40) m/uL Hgb (11.4-16.0) gm/dL Hct (34.0-46.0) % Plt Count (150-450) k/uL Neutrophils # (1.3-7.7) k/uL Lymphocytes # (1.0-4.8) k/uL Glucose (74-99) mg/dL POC Glucose (mg/dL) 120 H 118 H 102 H (75-99) mg/dL Total Bilirubin (0.2-1.3) mg/dL AST (14-36) U/L Alkaline Phosphatase (38-126) U/L Total Protein (6.3-8.2) g/dL Albumin (3.5-5.0) g/dL Crossmatch 01/21/18 01/21/18 01/21/18 Range/Units 01:00 02:23 03:06 WBC (3.8-10.6) k/uL RBC (3.80-5.40) m/uL Hgb (11.4-16.0) gm/dL Hct (34.0-46.0) % Plt Count (150-450) k/uL Neutrophils # (1.3-7.7) k/uL Lymphocytes # (1.0-4.8) k/uL Glucose (74-99) mg/dL POC Glucose (mg/dL) 109 H 110 H 115 H (75-99) mg/dL Total Bilirubin (0.2-1.3) mg/dL AST (14-36) U/L Alkaline Phosphatase (38-126) U/L Total Protein (6.3-8.2) g/dL Albumin (3.5-5.0) g/dL Crossmatch 01/21/18 01/21/18 01/21/18 Range/Units 04:11 04:42 04:44 WBC (3.8-10.6) k/uL RBC (3.80-5.40) m/uL Hgb (11.4-16.0) gm/dL Hct (34.0-46.0) % Plt Count (150-450) k/uL Neutrophils # (1.3-7.7) k/uL Lymphocytes # (1.0-4.8) k/uL Glucose 111 H (74-99) mg/dL POC Glucose (mg/dL) 123 H 116 H (75-99) mg/dL Total Bilirubin 2.9 H (0.2-1.3) mg/dL AST 97 H (14-36) U/L Alkaline Phosphatase 203 H (38-126) U/L Total Protein 5.2 L (6.3-8.2) g/dL Albumin 3.2 L (3.5-5.0) g/dL Crossmatch 01/21/18 01/21/18 01/21/18 Range/Units 04:44 06:26 07:01 WBC (3.8-10.6) k/uL RBC 2.58 L (3.80-5.40) m/uL Hgb 7.6 L (11.4-16.0) gm/dL Hct 23.2 L (34.0-46.0) % Plt Count 136 L (150-450) k/uL Neutrophils # (1.3-7.7) k/uL Lymphocytes # 0.5 L (1.0-4.8) k/uL Glucose (74-99) mg/dL POC Glucose (mg/dL) 117 H 118 H (75-99) mg/dL Total Bilirubin (0.2-1.3) mg/dL AST (14-36) U/L Alkaline Phosphatase (38-126) U/L Total Protein (6.3-8.2) g/dL Albumin (3.5-5.0) g/dL Crossmatch 01/21/18 Range/Units 08:40 WBC (3.8-10.6) k/uL RBC (3.80-5.40) m/uL Hgb (11.4-16.0) gm/dL Hct (34.0-46.0) % Plt Count (150-450) k/uL Neutrophils # (1.3-7.7) k/uL Lymphocytes # (1.0-4.8) k/uL Glucose (74-99) mg/dL POC Glucose (mg/dL) 171 H (75-99) mg/dL Total Bilirubin (0.2-1.3) mg/dL AST (14-36) U/L Alkaline Phosphatase (38-126) U/L Total Protein (6.3-8.2) g/dL Albumin (3.5-5.0) g/dL Crossmatch Assessment and Plan Assessment: Assessment Postop day #3, status post mitral valve replacement tricuspid valve repair Postoperative respiratory failure, resolved History of atrial fibrillation History of CAD History of heart failure History of COPD History of CVA/TIA Hyperlipidemia by history Hypertension by history Previous history of myocardial infarction DJD/degenerative disc disease History of pneumonia Previous history of urinary tract infection with sepsis Plan: Plan dated 01/19/2018 The patient was extubated last night. The patient's doing well. We'll continue to follow along. We recommend deep breathing coughing and clearing of secretions. Also recommend using the incentive spirometer every hour while awake. No additional recommendations are made. We'll continue to follow. Prognosis is guarded. Plan dated 01/21/2018 The patient remains on O2 at 6 L. Also remains on a relatively smaller dose of norepinephrine at 4 mcg/m. The patient's also on an insulin drip at less than 1 unit per hour and lactated Ringer's at 20 mL an hour. Additional recommendations are made. We'll continue to follow. Prognosis is guarded. Time with Patient: Greater than 30
[2018-01-21 10:02] LABS: Glucose,Whole Blood 111 mg/dL (75-99)
[2018-01-21 11:16] LABS: Glucose,Whole Blood 106 mg/dL (75-99)
[2018-01-21] MEDS: NOREPINEPHRINE 4 MG in SODIUM CHLORIDE 0.9% 250 ML IV SCH (13:35)
--- NOTE | 2018-01-21 14:06 | PN ---
PROGRESS NOTE Patient is status post mitral valve replacement, tricuspid valve repair. Patient is resting comfortably in the chair. No respiratory distress is noted. No significant arrhythmias are noted. Patient is in the paced rhythm. She is afebrile. Blood pressure is 90/61 mmHg. Heart: S1 and S2 normal. Lungs examination reveals bilateral diminished air entry. The patient's urine output was 2700 mL yesterday and the creatinine remained stable. Patient received 1 unit of packed cells yesterday. At present, we will continue the patient on current medications. MMODL / IJN: [id number] /
--- NOTE | 2018-01-21 15:56 | P.PN ---
Subjective Progress Note Date: 01/21/18 Principal diagnosis: Severe mitral valve stenosis, moderate to severe tricuspid valve regurgitation, long-standing persistent atrial fibrillation, COPD, history of CVA 2 with residual left-sided weakness, hypertension, hyperlipidemia, history of myocardial infarction, history of coronary artery disease, osteoarthritis, chronic low back pain, degenerative disc disease, history of ASD with closure in 2012, history of congestive heart failure, chronic tobacco dependence, history of pneumonia requiring intubation. POD #3 mitral valve replacement with a number 31-33 On-X mechanical mitral valve , tricuspid valve repair with a #32 mm MC 3 tricuspid ring, clip ligation of the left atrial appendage with a #32 x 45 mm atrial clip, intraoperative transesophageal echocardiogram. Patient is currently sitting up to the bedside chair. She is in no acute distress. She denies any complaints of shortness of breath or pain at this time. She is coughing and deep breathing and demonstrating good use on her incentive spirometry, but only achieving 250 mL on her incentive spirometry. She reports she ambulated in the ICU hallway yesterday with assistance from physical therapy. She also reports that she had some urinary retention last night requiring straight catheterization. Objective - Vital Signs Vital signs: Vital Signs Temp 98.4 F 01/21/18 08:00 Pulse 69 01/21/18 13:30 Resp 20 01/21/18 13:00 BP 100/46 01/21/18 13:00 Pulse Ox 99 01/21/18 13:30 Intake & Output 01/20/18 01/21/18 01/21/18 18:59 06:59 18:59 Intake Total 1444.172 642.659 595.902 Output Total 2075 644 475 Balance -630.828 -1.341 120.902 Weight 68.9 kg 68.9 kg Intake: IV 428 312 176 CO/CI 30 Calcium Gluconate 1,000 100 mg In Sodium Chloride 0.9 % 100 ml @ 100 mls/hr IVPB ONCE ONE Rx#: [id number] Lactated Ringers 1,000 ml 220 240 140 @ 20 mls/hr IV .Q24H [facility] Rx#:[id number] Pressure Bag: Normal 78 72 36 Saline Intake, IV Titration 246.172 150.659 79.902 Amount Insulin Regular 100 unit 28.177 5.308 5.543 In Sodium Chloride 0.9% 100 ml @ Per Protocol IV .Q0M JUAN A Rx#:[id number] Norepinephrine 4 mg In 217.995 145.351 74.359 Sodium Chloride 0.9% 250 ml @ Titrate IV .Q0M JUAN A Rx#:[id number] Oral 360 180 340 Tube Feeding 100 Blood Product 310 Rc As-1 Unit 310 [id number] Output: Chest Tube Drainage 330 299 50 Lt and Rt medistinal CT 330 299 50 Urine 1745 345 425 Other: Voiding Method Indwelling Catheter Bedside Commode Bedside Commode # Bowel Movements 1 ABP, PAP, CO, CI - Last Documented Arterial Blood Pressure 107/52 Pulmonary Artery Pressure 64/26 Cardiac Output 4.8 Cardiac Index 3.1 - Constitutional General appearance: Present: cooperative, no acute distress, thin - Respiratory Details: Lung sounds with scattered rhonchi throughout. Respirations are symmetrical and nonlabored. Oxygen saturation are 98% on 4 L nasal cannula. She is achieving 250 mL on her incentive spirometry. Mediastinal chest tubes without air leak, draining thin serosanguineous drainage. 175 mL output in the last 8 hours, 680 mL output in the last 24 hours. - Cardiovascular Details: Regular rhythm and rate. S1 and S2 present, negative for S3, gallop or murmur. Sternum is stable. Bedside telemetry showing ventricular paced rhythm heart rate 70. Epicardial ventricular pacemaker wires intact and to backup generator with a rate of 70. Right IJ Cordis in place with continuous CVP monitoring CVP pressure 16 mmHg. Right radial arterial line in place and functioning. Knee- high ROSALIE hose and sequential compression devices in place to her bilateral lower extremities. Norepinephrine drip remains infusing at 4 mcg/m. - Gastrointestinal Gastrointestinal Comment(s): Abdomen is soft, nontender nondistended. Active bowel sounds all 4 abdominal quadrants. Tolerating oral intake. Bowel movement today. - Integumentary Integumentary Comment(s): Voiding clear yellow urine. - Neurologic Neurologic: Present: CNII-XII intact - Musculoskeletal Musculoskeletal: Present: gait normal, strength equal bilaterally, left sided weakness (History of left-sided weakness from previous CVA.) - Psychiatric Psychiatric: Present: A&O x's 3, appropriate affect, intact judgment & insight - Allied health notes Allied health notes reviewed: nursing - Labs CBC & Chem 7: 01/21/18 04:44 05/03/18 04:44 Labs: Abnormal Lab Results - Last 24 Hours (Table) 01/20/18 01/20/18 01/20/18 Range/Units 15:05 16:11 18:03 WBC 11.0 H (3.8-10.6) k/uL RBC 2.68 L (3.80-5.40) m/uL Hgb 8.1 L (11.4-16.0) gm/dL Hct 23.9 L (34.0-46.0) % Plt Count 146 L (150-450) k/uL Neutrophils # 9.6 H (1.3-7.7) k/uL Lymphocytes # 0.6 L (1.0-4.8) k/uL Glucose (74-99) mg/dL POC Glucose (mg/dL) 110 H 102 H (75-99) mg/dL Total Bilirubin (0.2-1.3) mg/dL AST (14-36) U/L Alkaline Phosphatase (38-126) U/L Total Protein (6.3-8.2) g/dL Albumin (3.5-5.0) g/dL 01/20/18 01/20/18 01/20/18 Range/Units 18:57 19:35 19:45 WBC (3.8-10.6) k/uL RBC (3.80-5.40) m/uL Hgb (11.4-16.0) gm/dL Hct (34.0-46.0) % Plt Count (150-450) k/uL Neutrophils # (1.3-7.7) k/uL Lymphocytes # (1.0-4.8) k/uL Glucose (74-99) mg/dL POC Glucose (mg/dL) 127 H 123 H 128 H (75-99) mg/dL Total Bilirubin (0.2-1.3) mg/dL AST (14-36) U/L Alkaline Phosphatase (38-126) U/L Total Protein (6.3-8.2) g/dL Albumin (3.5-5.0) g/dL 01/20/18 01/20/18 01/20/18 Range/Units 21:05 21:55 23:55 WBC (3.8-10.6) k/uL RBC (3.80-5.40) m/uL Hgb (11.4-16.0) gm/dL Hct (34.0-46.0) % Plt Count (150-450) k/uL Neutrophils # (1.3-7.7) k/uL Lymphocytes # (1.0-4.8) k/uL Glucose (74-99) mg/dL POC Glucose (mg/dL) 120 H 118 H 102 H (75-99) mg/dL Total Bilirubin (0.2-1.3) mg/dL AST (14-36) U/L Alkaline Phosphatase (38-126) U/L Total Protein (6.3-8.2) g/dL Albumin (3.5-5.0) g/dL 01/21/18 01/21/18 01/21/18 Range/Units 01:00 02:23 03:06 WBC (3.8-10.6) k/uL RBC (3.80-5.40) m/uL Hgb (11.4-16.0) gm/dL Hct (34.0-46.0) % Plt Count (150-450) k/uL Neutrophils # (1.3-7.7) k/uL Lymphocytes # (1.0-4.8) k/uL Glucose (74-99) mg/dL POC Glucose (mg/dL) 109 H 110 H 115 H (75-99) mg/dL Total Bilirubin (0.2-1.3) mg/dL AST (14-36) U/L Alkaline Phosphatase (38-126) U/L Total Protein (6.3-8.2) g/dL Albumin (3.5-5.0) g/dL 01/21/18 01/21/18 01/21/18 Range/Units 04:11 04:42 04:44 WBC (3.8-10.6) k/uL RBC (3.80-5.40) m/uL Hgb (11.4-16.0) gm/dL Hct (34.0-46.0) % Plt Count (150-450) k/uL Neutrophils # (1.3-7.7) k/uL Lymphocytes # (1.0-4.8) k/uL Glucose 111 H (74-99) mg/dL POC Glucose (mg/dL) 123 H 116 H (75-99) mg/dL Total Bilirubin 2.9 H (0.2-1.3) mg/dL AST 97 H (14-36) U/L Alkaline Phosphatase 203 H (38-126) U/L Total Protein 5.2 L (6.3-8.2) g/dL Albumin 3.2 L (3.5-5.0) g/dL 01/21/18 01/21/18 01/21/18 Range/Units 04:44 06:26 07:01 WBC (3.8-10.6) k/uL RBC 2.58 L (3.80-5.40) m/uL Hgb 7.6 L (11.4-16.0) gm/dL Hct 23.2 L (34.0-46.0) % Plt Count 136 L (150-450) k/uL Neutrophils # (1.3-7.7) k/uL Lymphocytes # 0.5 L (1.0-4.8) k/uL Glucose (74-99) mg/dL POC Glucose (mg/dL) 117 H 118 H (75-99) mg/dL Total Bilirubin (0.2-1.3) mg/dL AST (14-36) U/L Alkaline Phosphatase (38-126) U/L Total Protein (6.3-8.2) g/dL Albumin (3.5-5.0) g/dL 01/21/18 01/21/18 01/21/18 Range/Units 08:40 09:59 11:12 WBC (3.8-10.6) k/uL RBC (3.80-5.40) m/uL Hgb (11.4-16.0) gm/dL Hct (34.0-46.0) % Plt Count (150-450) k/uL Neutrophils # (1.3-7.7) k/uL Lymphocytes # (1.0-4.8) k/uL Glucose (74-99) mg/dL POC Glucose (mg/dL) 171 H 111 H 106 H (75-99) mg/dL Total Bilirubin (0.2-1.3) mg/dL AST (14-36) U/L Alkaline Phosphatase (38-126) U/L Total Protein (6.3-8.2) g/dL Albumin (3.5-5.0) g/dL - Imaging and Cardiology Chest x-ray: report reviewed, image reviewed Assessment and Plan (1) Persistent atrial fibrillation Current Visit: Yes Status: Acute Code(s): I48.1 - PERSISTENT ATRIAL FIBRILLATION SNOMED Code(s): 968341504 (2) Nicotine dependence Current Visit: Yes Status: Acute Code(s): F17.200 - NICOTINE DEPENDENCE, UNSPECIFIED, UNCOMPLICATED SNOMED Code(s): 89147403 (3) Hypertension Current Visit: Yes Status: Acute Code(s): I10 - ESSENTIAL (PRIMARY) HYPERTENSION SNOMED Code(s): 22634637 (4) Hyperlipidemia Current Visit: Yes Status: Acute Code(s): E78.5 - HYPERLIPIDEMIA, UNSPECIFIED SNOMED Code(s): 12736780 (5) CHF (congestive heart failure) Current Visit: No Status: Acute Code(s): I50.9 - HEART FAILURE, UNSPECIFIED SNOMED Code(s): 39225664 (6) COPD (chronic obstructive pulmonary disease) Current Visit: No Status: Acute Code(s): J44.9 - CHRONIC OBSTRUCTIVE PULMONARY DISEASE, UNSPECIFIED SNOMED Code(s): 35273487 (7) Diastolic CHF, acute on chronic Current Visit: No Status: Acute Code(s): I50.33 - ACUTE ON CHRONIC DIASTOLIC (CONGESTIVE) HEART FAILURE SNOMED Code(s): 927586345 (8) History of pneumonia Current Visit: No Status: Acute Code(s): Z87.01 - PERSONAL HISTORY OF PNEUMONIA (RECURRENT) SNOMED Code(s): 678129196 (9) Mitral stenosis Current Visit: No Status: Acute Code(s): I05.0 - RHEUMATIC MITRAL STENOSIS SNOMED Code(s): 28353193 (10) Status post patch closure of ASD Current Visit: No Status: Acute Code(s): Z98.890 - OTHER SPECIFIED POSTPROCEDURAL STATES; Z87.74 - PERSONAL HISTORY OF CONGENITAL MALFORM OF HEART AND CIRC SYS SNOMED Code(s): 953149416 (11) Chronic a-fib Current Visit: No Status: Chronic Code(s): I48.2 - CHRONIC ATRIAL FIBRILLATION SNOMED Code(s): 294817267 (12) History of CVA (cerebrovascular accident) Current Visit: No Status: Chronic Code(s): Z86.73 - PRSNL HX OF TIA (TIA), AND CEREB INFRC W/O RESID DEFICITS SNOMED Code(s): 340096997 (13) Mitral valve stenosis, severe Current Visit: No Status: Chronic Code(s): I05.0 - RHEUMATIC MITRAL STENOSIS SNOMED Code(s): 01220978 (14) Noncompliance Current Visit: No Status: Chronic Code(s): Z91.19 - PATIENT'S NONCOMPLIANCE W OTH MEDICAL TREATMENT AND REGIMEN SNOMED Code(s): 4708502 Plan: 1. Continue aspirin, statin, and heparin subcu. Continue to hold beta tay today. 2. Keep mediastinal chest tubes in place to low continuous wall suction -20 cm H2O. 3. Wean norepinephrine as tolerated. 4. Pulmonary management per Dr. Casarez's recommendations. Encourage use of her incentive spirometry every hour while awake. 5. Increase activity as tolerated. Out of bed for all meals. Physical therapy , occupational therapy and cardiac rehab consulted. 6. Blood sugar management and medical management per primary care service. 7. Keep ventricular epicardial pacemaker wires in place with a VVI backup mode heart rate of 70 bpm. 8. Lasix 40 mg IV 1 today. 9. Continue Toradol 15 mg IV every 6 hours when necessary pain. 10. GI/DVT prophylaxis. 11. We will monitor daily labs and chest x-rays. 12. Reinforced the importance of smoking cessation and continue smoking cessation education. 13. Continue right IJ cordis to continuous CVP monitoring. 15. More recommendations to follow based on the patient's clinical course. Time with Patient: Greater than 30
[2018-01-21 17:19] LABS: Glucose,Whole Blood 119 mg/dL (75-99)
[2018-01-21] MEDS: INSULIN ASPART 100 UNIT/ML 1 ML 10 ML VIAL SQ SCH ×2 (18:25→20:56)
[2018-01-21] MEDS: LACTATED RINGERS 1,000 ML IV SCH (18:27)
[2018-01-21] MEDS: SENNOSIDES-DOCUSATE SODIUM 1 EACH TAB PO SCH (20:53)
[2018-01-21] MEDS: ESCITALOPRAM 10 MG TAB PO SCH (20:54)
[2018-01-21 21:26] LABS: Glucose,Whole Blood 135 mg/dL (75-99)
[2018-01-22] MEDS: HEPARIN SODIUM,PORCINE 5,000 UNIT/ML 1 ML VIAL SQ SCH ×3 (01:54→16:18)
[2018-01-22] MEDS: INSULIN ASPART 100 UNIT/ML 1 ML 10 ML VIAL SQ SCH ×5 (01:56→21:04)
[2018-01-22 01:57] LABS: Glucose,Whole Blood 110 mg/dL (75-99)
[2018-01-22] MEDS: KETOROLAC 30 MG/ML 1 ML VIAL IVP SCH ×4 (02:00→21:03)
[2018-01-22] MEDS: IPRATROPIUM-ALBUTEROL 3 ML NEB INHALATION PRN (04:04)
[2018-01-22 04:25] LABS: ALT 19 U/L (9-52); AST 83 U/L (14-36); Albumin 3.3 g/dL (3.5-5.0); Alkaline Phosphatase 288 U/L (38-126); Anion Gap 12 mmol/L; Basophils % (A) 1 %; Blood Urea Nitrogen 19 mg/dL (7-17); Calcium 8.7 mg/dL (8.4-10.2); Carbon Dioxide 27 mmol/L (22-30); Chloride 104 mmol/L (98-107); Eosinophils # (A) 0.2 k/uL (0-0.7); Eosinophils % (A) 4 %; Glucose 124 mg/dL (74-99); HCT 23.6 % (34.0-46.0); HGB 7.7 gm/dL (11.4-16.0); Lymphocytes # (A) 0.7 k/uL (1.0-4.8); Lymphocytes % (A) 13 %; MCHC 32.8 g/dL (31.0-37.0); MCV 91.6 fL (80.0-100.0); Magnesium 2.4 mg/dL (1.6-2.3); Mean Platelet Volume 8.8; Monocytes # (A) 0.3 k/uL (0-1.0); Monocytes % (A) 6 %; Neutrophils % (A) 74 %; Phosphorus 3.3 mg/dL (2.5-4.5); Platelet Count 142 k/uL (150-450); Potassium 4.1 mmol/L (3.5-5.1); RBC 2.58 m/uL (3.80-5.40); Sodium 143 mmol/L (137-145); Total Bilirubin 1.6 mg/dL (0.2-1.3); Total Protein 5.5 g/dL (6.3-8.2); WBC 5.4 k/uL (3.8-10.6)
[2018-01-22 07:08] LABS: Glucose,Whole Blood 126 mg/dL (75-99)
--- NOTE | 2018-01-22 07:15 | XR ---
EXAMINATION TYPE: XR chest 1V portable DATE OF EXAM: 01/22/2018 COMPARISON: NONE HISTORY: SOB, Follow Up FINDINGS: Indwelling tubes and catheters are unchanged. No change in bibasilar opacities. Stable appearance of the cardio-mediastinal structures at this time. Pleural effusion unchanged. IMPRESSION: 1. Stable portable chest. Clinical correlation and follow up until resolution is recommended.
[2018-01-22] MEDS: IPRATROPIUM-ALBUTEROL 3 ML NEB INHALATION SCH ×4 (07:41→19:42)
--- NOTE | 2018-01-22 07:57 | P.PN ---
Subjective Progress Note Date: 01/22/18 Principal diagnosis: Status post mitral valve replacement and tricuspid valve repair Progress note dated 01/21/2018 This is a 62-year-old female who is postop day #3, status post mitral valve replacement and tricuspid valve repair. Thought to 6 L nasal cannula. The patient remains on norepinephrine at 4 mics per minute insulin drip at half a unit per hour and lactated Ringer's at 20 mL an hour. The patient seemed be doing relatively well. The surgery was done by Dr. Ibrahim. The patient has a history of atrial fibrillation, valvular heart disease, CAD, heart failure, COPD , CVA, hyperlipidemia, hypertension, myocardial infarction, DJD and pneumonia. She also suffers some degenerative disc disease and chronic back pain. The patient is doing well in general. She denies chest pain or chest discomfort. No shortness of breath or difficulty breathing. No coughing wheezing or phlegm production. No nausea vomiting or diarrhea. Progress note dated 01/22/2018 62-year-old female who is postop day #4 status post mitral valve replacement and tricuspid valve repair. She's currently on 2 L nasal cannula. Her norepinephrine has been weaned down to 2 mics per minute. She is getting lactated Ringer's at 20 mL an hour. Chest x-ray shows some bilateral atelectasis and small effusions. She otherwise is stable. Her surgery was done by Dr. Ibrahim. She has a history of atrial fibrillation, valvular heart disease, CAD, heart failure, COPD, CVA, hyperlipidemia, hypertension, myocardial infarction, DJD and pneumonia. She also suffers some degenerative disc disease and chronic back pain. All in all, the patient is doing relatively well. Other than the norepinephrine, hemodynamically, she is stable.. Objective - Vital Signs Vital signs: Vital Signs Temp 98.9 F 01/22/18 04:00 Pulse 69 01/22/18 07:00 Resp 18 01/22/18 07:00 BP 114/63 01/22/18 07:00 Pulse Ox 95 01/22/18 07:00 Intake & Output 01/21/18 01/22/18 01/22/18 18:59 06:59 18:59 Intake Total 1130.670 312 123.536 Output Total 1035 440 Balance 95.670 -128 123.536 Weight 68.9 kg 69.3 kg Intake: IV 306 312 26 Lactated Ringers 1,000 ml 240 240 20 @ 20 mls/hr IV .Q24H JUAN A Rx#:[id number] Pressure Bag: Normal 66 72 6 Saline Intake, IV Titration 124.670 97.536 Amount Insulin Regular 100 unit 5.543 In Sodium Chloride 0.9% 100 ml @ Per Protocol IV .Q0M JUAN A Rx#:[id number] Norepinephrine 4 mg In 119.127 97.536 Sodium Chloride 0.9% 250 ml @ Titrate IV .Q0M JUAN A Rx#:[id number] Oral 700 Output: Chest Tube Drainage 60 40 Lt and Rt medistinal CT 60 40 Urine 975 400 Other: Voiding Method Bedside Commode Bedside Commode # Bowel Movements 1 ABP, PAP, CO, CI - Last Documented Arterial Blood Pressure 95/54 Pulmonary Artery Pressure 64/26 Cardiac Output 4.8 Cardiac Index 3.1 - Exam No acute distress, oriented 3. Nasal O2 in place. HEENT examination is grossly unremarkable. Mucous membranes are moist. No oral lesions. Neck supple. Full range of motion. No adenopathy thyromegaly or neck vein distention. Cardiovascular examination reveals regular rhythm rate. S1-S2 normal. No S3 or S4. No discernible murmur noted. Lungs reveal a few scattered rhonchi. Some crackles are noted at the bases. Breath sounds are equal bilaterally. There was no prolongation on forced maneuver.. Abdomen soft bowel sounds are heard. No masses or tenderness. Extremities are intact. No cyanosis clubbing or edema. Skin is without rash or lesion. Neurologic examination is brief but nonfocal. - Labs CBC & Chem 7: 01/22/18 03:55 01/22/18 03:55 Labs: Abnormal Lab Results - Last 24 Hours (Table) 01/21/18 01/21/18 01/21/18 Range/Units 08:40 09:59 11:12 RBC (3.80-5.40) m/uL Hgb (11.4-16.0) gm/dL Hct (34.0-46.0) % Plt Count (150-450) k/uL Lymphocytes # (1.0-4.8) k/uL BUN (7-17) mg/dL Glucose (74-99) mg/dL POC Glucose (mg/dL) 171 H 111 H 106 H (75-99) mg/dL Magnesium (1.6-2.3) mg/dL Total Bilirubin (0.2-1.3) mg/dL AST (14-36) U/L Alkaline Phosphatase (38-126) U/L Total Protein (6.3-8.2) g/dL Albumin (3.5-5.0) g/dL 01/21/18 01/21/18 01/22/18 Range/Units 17:17 20:50 01:56 RBC (3.80-5.40) m/uL Hgb (11.4-16.0) gm/dL Hct (34.0-46.0) % Plt Count (150-450) k/uL Lymphocytes # (1.0-4.8) k/uL BUN (7-17) mg/dL Glucose (74-99) mg/dL POC Glucose (mg/dL) 119 H 135 H 110 H (75-99) mg/dL Magnesium (1.6-2.3) mg/dL Total Bilirubin (0.2-1.3) mg/dL AST (14-36) U/L Alkaline Phosphatase (38-126) U/L Total Protein (6.3-8.2) g/dL Albumin (3.5-5.0) g/dL 01/22/18 01/22/18 01/22/18 Range/Units 03:55 03:55 07:06 RBC 2.58 L (3.80-5.40) m/uL Hgb 7.7 L (11.4-16.0) gm/dL Hct 23.6 L (34.0-46.0) % Plt Count 142 L (150-450) k/uL Lymphocytes # 0.7 L (1.0-4.8) k/uL BUN 19 H (7-17) mg/dL Glucose 124 H (74-99) mg/dL POC Glucose (mg/dL) 126 H (75-99) mg/dL Magnesium 2.4 H (1.6-2.3) mg/dL Total Bilirubin 1.6 H (0.2-1.3) mg/dL AST 83 H (14-36) U/L Alkaline Phosphatase 288 H (38-126) U/L Total Protein 5.5 L (6.3-8.2) g/dL Albumin 3.3 L (3.5-5.0) g/dL Assessment and Plan Assessment: Assessment Postop day #4, status post mitral valve replacement tricuspid valve repair Postoperative respiratory failure, resolved History of atrial fibrillation History of CAD History of heart failure History of COPD History of CVA/TIA Hyperlipidemia by history Hypertension by history Previous history of myocardial infarction DJD/degenerative disc disease History of pneumonia Previous history of urinary tract infection with sepsis Plan: Plan dated 01/19/2018 The patient was extubated last night. The patient's doing well. We'll continue to follow along. We recommend deep breathing coughing and clearing of secretions. Also recommend using the incentive spirometer every hour while awake. No additional recommendations are made. We'll continue to follow. Prognosis is guarded. Plan dated 01/21/2018 The patient remains on O2 at 6 L. Also remains on a relatively smaller dose of norepinephrine at 4 mcg/m. The patient's also on an insulin drip at less than 1 unit per hour and lactated Ringer's at 20 mL an hour. Additional recommendations are made. We'll continue to follow. Prognosis is guarded. Plan dated 01/22/2018 The patient seemed be doing relatively well. The norepinephrine has been weaned down to 2 mcg/m. She is getting lactated Ringer's at 20 mL an hour and nasal O2 at 2 L. Chest x-ray labs and medications are all reviewed. She is postop day #4. Making nice progress. We'll continue to follow. Time with Patient: Less than 30
[2018-01-22] MEDS: ATORVASTATIN 40 MG TAB PO SCH (08:42)
[2018-01-22] MEDS: ASPIRIN 325 MG TAB PO SCH (08:42)
[2018-01-22] MEDS: PANTOPRAZOLE 40 MG TABLET PO SCH (08:43)
[2018-01-22] MEDS ORDERED: FUROSEMIDE 10 MG/ML 4 ML VIAL IV STA (11:22)
--- NOTE | 2018-01-22 11:25 | P.PN ---
Subjective Progress Note Date: 01/22/18 Principal diagnosis: Severe mitral valve stenosis, moderate to severe tricuspid valve regurgitation, long-standing persistent atrial fibrillation, COPD, history of CVA 2 with residual left-sided weakness, hypertension, hyperlipidemia, history of myocardial infarction, history of coronary artery disease, osteoarthritis, chronic low back pain, degenerative disc disease, history of ASD with closure in 2012, history of congestive heart failure, chronic tobacco dependence, history of pneumonia requiring intubation. POD #4 mitral valve replacement with a number 31-33 On-X mechanical mitral valve , tricuspid valve repair with a #32 mm MC 3 tricuspid ring, clip ligation of the left atrial appendage with a #32 x 45 mm atrial clip, intraoperative transesophageal echocardiogram. Patient is currently sitting up to the bedside chair. She is in no acute distress. She denies any complaints of shortness of breath or pain at this time. She is coughing and deep breathing and demonstrating good use on her incentive spirometry, but only achieving 250 - 500 mL on her incentive spirometry. No further complaints of urinary retention. Bedside telemetry is demonstrating a V paced rhythm heart rate 70. Objective - Vital Signs Vital signs: Vital Signs Temp 98.9 F 01/22/18 04:00 Pulse 73 01/22/18 08:33 Resp 18 01/22/18 07:00 BP 114/63 01/22/18 07:00 Pulse Ox 95 01/22/18 08:23 Intake & Output 01/21/18 01/22/18 01/22/18 18:59 06:59 18:59 Intake Total 1130.670 312 123.536 Output Total 1035 440 Balance 95.670 -128 123.536 Weight 68.9 kg 69.3 kg Intake: IV 306 312 26 Lactated Ringers 1,000 ml 240 240 20 @ 20 mls/hr IV .Q24H JUAN A Rx#:[id number] Pressure Bag: Normal 66 72 6 Saline Intake, IV Titration 124.670 97.536 Amount Insulin Regular 100 unit 5.543 In Sodium Chloride 0.9% 100 ml @ Per Protocol IV .Q0M JUAN A Rx#:[id number] Norepinephrine 4 mg In 119.127 97.536 Sodium Chloride 0.9% 250 ml @ Titrate IV .Q0M JUAN A Rx#:[id number] Oral 700 Output: Chest Tube Drainage 60 40 Lt and Rt medistinal CT 60 40 Urine 975 400 Other: Voiding Method Bedside Commode Bedside Commode # Bowel Movements 1 ABP, PAP, CO, CI - Last Documented Arterial Blood Pressure 95/54 Pulmonary Artery Pressure 64/26 Cardiac Output 4.8 Cardiac Index 3.1 - Constitutional General appearance: Present: cooperative, no acute distress, thin - Respiratory Details: Lung sounds essentially clear to her bilateral upper lobes, scattered crackles to bilateral bases. Respirations are symmetrical and nonlabored. Oxygen saturation are 95% 4 L nasal cannula. She is achieving 250-500 mL on her incentive spirometry. Mediastinal chest tubes remain in place to low continuous wall suction -20 cm H2O. No air leak present. Draining thin serosanguineous drainage. 40 mL output in the last 8 hours, 170 mL output in the last 24 hours. - Cardiovascular Details: Regular rhythm and rate. S1 and S2 present, negative for S3, gallop or murmur. Sternum is stable. Bedside telemetry showing V paced rhythm heart rate 70. Epicardial ventricular wires remain intact and connected to bedside pacemaker generator. VVI mode of 70 and ma of 10. Heart hugger is in place and she is demonstrating appropriate use. Knee-high ROSALIE hose and sequential compression devices in place to her bilateral lower extremities. No edema present. - Gastrointestinal Gastrointestinal Comment(s): Abdomen soft, nontender and nondistended. Active bowel sounds all 4 abdominal quadrants. Tolerating oral intake. Bowel movement this a.m. - Genitourinary Genitourinary Comment(s): Voiding clear yellow urine. 400 mL output in the last 8 hours. - Integumentary Integumentary Comment(s): Skin is warm and dry. Jaundiced. No clubbing or cyanosis present. Midline sternal incision clean dry and well approximated. No drainage or redness present. Dermabond dressing clean and dry. - Neurologic Neurologic: Present: CNII-XII intact - Musculoskeletal Musculoskeletal: Present: strength equal bilaterally, left sided weakness ( Shuffling gait with her left foot.) - Psychiatric Psychiatric: Present: A&O x's 3, appropriate affect, intact judgment & insight - Allied health notes Allied health notes reviewed: nursing - Labs CBC & Chem 7: 01/22/18 03:55 01/22/18 03:55 Labs: Abnormal Lab Results - Last 24 Hours (Table) 01/21/18 01/21/18 01/21/18 Range/Units 08:40 09:59 11:12 RBC (3.80-5.40) m/uL Hgb (11.4-16.0) gm/dL Hct (34.0-46.0) % Plt Count (150-450) k/uL Lymphocytes # (1.0-4.8) k/uL BUN (7-17) mg/dL Glucose (74-99) mg/dL POC Glucose (mg/dL) 171 H 111 H 106 H (75-99) mg/dL Magnesium (1.6-2.3) mg/dL Total Bilirubin (0.2-1.3) mg/dL AST (14-36) U/L Alkaline Phosphatase (38-126) U/L Total Protein (6.3-8.2) g/dL Albumin (3.5-5.0) g/dL 01/21/18 01/21/18 01/22/18 Range/Units 17:17 20:50 01:56 RBC (3.80-5.40) m/uL Hgb (11.4-16.0) gm/dL Hct (34.0-46.0) % Plt Count (150-450) k/uL Lymphocytes # (1.0-4.8) k/uL BUN (7-17) mg/dL Glucose (74-99) mg/dL POC Glucose (mg/dL) 119 H 135 H 110 H (75-99) mg/dL Magnesium (1.6-2.3) mg/dL Total Bilirubin (0.2-1.3) mg/dL AST (14-36) U/L Alkaline Phosphatase (38-126) U/L Total Protein (6.3-8.2) g/dL Albumin (3.5-5.0) g/dL 01/22/18 01/22/18 01/22/18 Range/Units 03:55 03:55 07:06 RBC 2.58 L (3.80-5.40) m/uL Hgb 7.7 L (11.4-16.0) gm/dL Hct 23.6 L (34.0-46.0) % Plt Count 142 L (150-450) k/uL Lymphocytes # 0.7 L (1.0-4.8) k/uL BUN 19 H (7-17) mg/dL Glucose 124 H (74-99) mg/dL POC Glucose (mg/dL) 126 H (75-99) mg/dL Magnesium 2.4 H (1.6-2.3) mg/dL Total Bilirubin 1.6 H (0.2-1.3) mg/dL AST 83 H (14-36) U/L Alkaline Phosphatase 288 H (38-126) U/L Total Protein 5.5 L (6.3-8.2) g/dL Albumin 3.3 L (3.5-5.0) g/dL - Imaging and Cardiology Chest x-ray: report reviewed, image reviewed Assessment and Plan (1) Persistent atrial fibrillation Current Visit: Yes Status: Acute Code(s): I48.1 - PERSISTENT ATRIAL FIBRILLATION SNOMED Code(s): 830797929 (2) Nicotine dependence Current Visit: Yes Status: Acute Code(s): F17.200 - NICOTINE DEPENDENCE, UNSPECIFIED, UNCOMPLICATED SNOMED Code(s): 36660631 (3) Hypertension Current Visit: Yes Status: Acute Code(s): I10 - ESSENTIAL (PRIMARY) HYPERTENSION SNOMED Code(s): 26885776 (4) Hyperlipidemia Current Visit: Yes Status: Acute Code(s): E78.5 - HYPERLIPIDEMIA, UNSPECIFIED SNOMED Code(s): 62763566 (5) CHF (congestive heart failure) Current Visit: No Status: Acute Code(s): I50.9 - HEART FAILURE, UNSPECIFIED SNOMED Code(s): 85466826 (6) COPD (chronic obstructive pulmonary disease) Current Visit: No Status: Acute Code(s): J44.9 - CHRONIC OBSTRUCTIVE PULMONARY DISEASE, UNSPECIFIED SNOMED Code(s): 20808204 (7) Diastolic CHF, acute on chronic Current Visit: No Status: Acute Code(s): I50.33 - ACUTE ON CHRONIC DIASTOLIC (CONGESTIVE) HEART FAILURE SNOMED Code(s): 906010623 (8) History of pneumonia Current Visit: No Status: Acute Code(s): Z87.01 - PERSONAL HISTORY OF PNEUMONIA (RECURRENT) SNOMED Code(s): 205798435 (9) Mitral stenosis Current Visit: No Status: Acute Code(s): I05.0 - RHEUMATIC MITRAL STENOSIS SNOMED Code(s): 51793950 (10) Status post patch closure of ASD Current Visit: No Status: Acute Code(s): Z98.890 - OTHER SPECIFIED POSTPROCEDURAL STATES; Z87.74 - PERSONAL HISTORY OF CONGENITAL MALFORM OF HEART AND CIRC SYS SNOMED Code(s): 941794932 (11) Chronic a-fib Current Visit: No Status: Chronic Code(s): I48.2 - CHRONIC ATRIAL FIBRILLATION SNOMED Code(s): 384544667 (12) History of CVA (cerebrovascular accident) Current Visit: No Status: Chronic Code(s): Z86.73 - PRSNL HX OF TIA (TIA), AND CEREB INFRC W/O RESID DEFICITS SNOMED Code(s): 104779887 (13) Mitral valve stenosis, severe Current Visit: No Status: Chronic Code(s): I05.0 - RHEUMATIC MITRAL STENOSIS SNOMED Code(s): 93574410 (14) Noncompliance Current Visit: No Status: Chronic Code(s): Z91.19 - PATIENT'S NONCOMPLIANCE W OTH MEDICAL TREATMENT AND REGIMEN SNOMED Code(s): 9226276 Plan: 1. Continue aspirin, statin, and heparin subcu. Continue to hold beta tay due to her bradycardia. 2. We will discontinue her mediastinal chest tubes today. 3. Wean norepinephrine off as tolerated. 4. Pulmonary management per Dr. Casarez's recommendations. Encourage use of her incentive spirometry every hour while awake. 5. Increase activity as tolerated. Out of bed for all meals. Physical therapy , occupational therapy and cardiac rehab following. 6. Blood sugar management and medical management per primary care service. 7. Keep ventricular epicardial pacemaker wires in place with a VVI mode heart rate of 50 bpm. 8. Lasix 40 mg IV 1 today. 9. Continue Toradol 15 mg IV every 6 hours when necessary pain. 10. GI/DVT prophylaxis. 11. We will monitor daily labs and chest x-rays. 12. Reinforced the importance of smoking cessation and continue smoking cessation education. 13. Discontinue right IJ cordis. 14. More recommendations to follow based on the patient's clinical course. Time with Patient: Greater than 30
[2018-01-22] MEDS: FERROUS SULFATE 325 MG TAB PO SCH (12:06)
[2018-01-22] MEDS: ASCORBIC ACID 500 MG TAB PO SCH (12:06)
[2018-01-22 12:12] LABS: Glucose,Whole Blood 117 mg/dL (75-99)
[2018-01-22] MEDS: LACTATED RINGERS 1,000 ML IV SCH (16:12)
--- NOTE | 2018-01-22 16:47 | PN ---
PROGRESS NOTE This patient is status post mitral valve replacement. Patient has been doing fairly well. The patient is comfortable sitting in the chair without any respiratory distress. Heart rate is 60 to 70 per minute, blood pressure is 114/63 mmHg. First and second heart sounds are heard. Lungs examination reveals bilateral scattered wheezes. FINAL IMPRESSION: The patient has some evidence of fluid overload. He is otherwise doing fairly well. The patient's underlying rhythm is junctional rhythm. She is currently being paced at a rate of 50 beats per minute. We would recommend to start the patient on anticoagulation as soon as possible. MMODL / IJN: [id number] /
[2018-01-22 16:56] LABS: Glucose,Whole Blood 128 mg/dL (75-99)
--- NOTE | 2018-01-22 18:46 | P.PN ---
Subjective Progress Note Date: 01/22/18 62-year-old female admitted for mitral valve replacement with a mechanical mitral valve. Patient is extubated clinically doing well. Comparing of some pain in the retrosternal area. 01/23/2018 Patient is still on 2 mics of the levo fed. No significant overnight events patient denied any complaints today Constitutional: Denied any fatigue denied any fever. Cardio vascular: denied any palpitations Gastrointestinal denied any nausea vomiting Pulmonary: Denied any shortness of breath cough Neurologic denied any new focal deficits Objective - Vital Signs Vital signs: Vital Signs Temp 98.0 F 01/22/18 17:00 Pulse 54 L 01/22/18 18:00 Resp 21 01/22/18 18:00 BP 90/46 01/22/18 18:00 Pulse Ox 99 01/22/18 18:00 Intake & Output 01/21/18 01/22/18 01/22/18 18:59 06:59 18:59 Intake Total 1130.670 312 201.536 Output Total 1035 440 250 Balance 95.670 -128 -48.464 Weight 68.9 kg 69.3 kg Intake: IV 306 312 104 Lactated Ringers 1,000 ml 240 240 80 @ 20 mls/hr IV .Q24H JUAN A Rx#:[id number] Pressure Bag: Normal 66 72 24 Saline Intake, IV Titration 124.670 97.536 Amount Insulin Regular 100 unit 5.543 In Sodium Chloride 0.9% 100 ml @ Per Protocol IV .Q0M JUAN A Rx#:[id number] Norepinephrine 4 mg In 119.127 97.536 Sodium Chloride 0.9% 250 ml @ Titrate IV .Q0M JUAN A Rx#:[id number] Oral 700 Output: Chest Tube Drainage 60 40 0 Lt and Rt medistinal CT 60 40 0 Urine 975 400 250 Other: Voiding Method Bedside Commode Bedside Commode Bedside Commode # Bowel Movements 1 1 ABP, PAP, CO, CI - Last Documented Arterial Blood Pressure 147/144 Pulmonary Artery Pressure 64/26 Cardiac Output 4.8 Cardiac Index 3.1 - Exam PHYSICAL EXAMINATION: GENERAL: Patient is extubated alert oriented [address] Harlan-See in place HEENT: Pupils are round and equally reacting to light. EOMI. No scleral icterus. No conjunctival pallor. Normocephalic, atraumatic. No pharyngeal erythema. No thyromegaly. CARDIOVASCULAR: S1 and S2 present. No murmurs, rubs, or gallops. PULMONARY: Chest is clear to auscultation, no wheezing or crackles. ABDOMEN: Soft, nontender, nondistended, normoactive bowel sounds. No palpable organomegaly. MUSCULOSKELETAL: No joint swelling or deformity. EXTREMITIES: No cyanosis, clubbing, or pedal edema. NEUROLOGICAL: Gross neurological examination did not reveal any focal deficits. SKIN: No rashes. - Labs CBC & Chem 7: 01/22/18 03:55 01/22/18 03:55 Labs: Abnormal Lab Results - Last 24 Hours (Table) 01/21/18 01/22/18 01/22/18 Range/Units 20:50 01:56 03:55 RBC 2.58 L (3.80-5.40) m/uL Hgb 7.7 L (11.4-16.0) gm/dL Hct 23.6 L (34.0-46.0) % Plt Count 142 L (150-450) k/uL Lymphocytes # 0.7 L (1.0-4.8) k/uL BUN (7-17) mg/dL Glucose (74-99) mg/dL POC Glucose (mg/dL) 135 H 110 H (75-99) mg/dL Magnesium (1.6-2.3) mg/dL Total Bilirubin (0.2-1.3) mg/dL AST (14-36) U/L Alkaline Phosphatase (38-126) U/L Total Protein (6.3-8.2) g/dL Albumin (3.5-5.0) g/dL 01/22/18 01/22/18 01/22/18 Range/Units 03:55 07:06 12:09 RBC (3.80-5.40) m/uL Hgb (11.4-16.0) gm/dL Hct (34.0-46.0) % Plt Count (150-450) k/uL Lymphocytes # (1.0-4.8) k/uL BUN 19 H (7-17) mg/dL Glucose 124 H (74-99) mg/dL POC Glucose (mg/dL) 126 H 117 H (75-99) mg/dL Magnesium 2.4 H (1.6-2.3) mg/dL Total Bilirubin 1.6 H (0.2-1.3) mg/dL AST 83 H (14-36) U/L Alkaline Phosphatase 288 H (38-126) U/L Total Protein 5.5 L (6.3-8.2) g/dL Albumin 3.3 L (3.5-5.0) g/dL 01/22/18 Range/Units 16:54 RBC (3.80-5.40) m/uL Hgb (11.4-16.0) gm/dL Hct (34.0-46.0) % Plt Count (150-450) k/uL Lymphocytes # (1.0-4.8) k/uL BUN (7-17) mg/dL Glucose (74-99) mg/dL POC Glucose (mg/dL) 128 H (75-99) mg/dL Magnesium (1.6-2.3) mg/dL Total Bilirubin (0.2-1.3) mg/dL AST (14-36) U/L Alkaline Phosphatase (38-126) U/L Total Protein (6.3-8.2) g/dL Albumin (3.5-5.0) g/dL Assessment and Plan Plan: -Respiratory failure acute, hypoxic secondary to post cardiac surgery and mitral valve repair surgery postoperative day 4: Patient is still on norepinephrine at a lower dose -COPD patient is not wheezing at this point of time no further intervention at this point of time -Congestive heart failure chronic diastolic dysfunction without any acute exacerbation patient is not receiving any IV fluids at this point of time and continue to monitor for any heart failure exacerbation -Mitral stenosis status post mitral valve replacement as mentioned above -Atrial fibrillation patient patient is not on any anti-coagulation at this time -CVA/TIA in the past -Hypertension
[2018-01-22] MEDS: SYMBICORT 160-4.5 MCG INHALER INHALATION SCH (19:42)
[2018-01-22] MEDS: SENNOSIDES-DOCUSATE SODIUM 1 EACH TAB PO SCH (21:03)
[2018-01-22] MEDS: ESCITALOPRAM 10 MG TAB PO SCH (21:04)
[2018-01-22 21:06] LABS: Glucose,Whole Blood 124 mg/dL (75-99)
[2018-01-23 02:48] LABS: Glucose,Whole Blood 129 mg/dL (75-99)
[2018-01-23] MEDS: HEPARIN SODIUM,PORCINE 5,000 UNIT/ML 1 ML VIAL SQ SCH ×2 (02:49→07:28)
[2018-01-23] MEDS: KETOROLAC 30 MG/ML 1 ML VIAL IVP SCH ×2 (02:49→08:13)
[2018-01-23] MEDS: INSULIN ASPART 100 UNIT/ML 1 ML 10 ML VIAL SQ SCH ×5 (02:49→21:41)
[2018-01-23 05:35] LABS: Basophils % (A) 1 %; Eosinophils # (A) 0.2 k/uL (0-0.7); Eosinophils % (A) 4 %; HGB 7.4 gm/dL (11.4-16.0); Lymphocytes # (A) 0.7 k/uL (1.0-4.8); Lymphocytes % (A) 14 %; MCH 29.7 pg (25.0-35.0); MCHC 32.1 g/dL (31.0-37.0); MCV 92.6 fL (80.0-100.0); Mean Platelet Volume 8.3; Monocytes # (A) 0.5 k/uL (0-1.0); Monocytes % (A) 9 %; Neutrophils # (A) 3.8 k/uL (1.3-7.7); Neutrophils % (A) 69 %; Platelet Count 163 k/uL (150-450); RBC 2.49 m/uL (3.80-5.40); RDW 14.9 % (11.5-15.5); WBC 5.4 k/uL (3.8-10.6)
[2018-01-23 05:50] LABS: ALT 16 U/L (9-52); AST 74 U/L (14-36); Albumin 3.3 g/dL (3.5-5.0); Alkaline Phosphatase 336 U/L (38-126); Anion Gap 14 mmol/L; Blood Urea Nitrogen 21 mg/dL (7-17); Calcium 8.6 mg/dL (8.4-10.2); Carbon Dioxide 26 mmol/L (22-30); Chloride 100 mmol/L (98-107); Glucose 97 mg/dL (74-99); Magnesium 2.1 mg/dL (1.6-2.3); Potassium 3.8 mmol/L (3.5-5.1); Sodium 140 mmol/L (137-145); Total Bilirubin 1.3 mg/dL (0.2-1.3); Total Protein 5.5 g/dL (6.3-8.2)
[2018-01-23] MEDS ORDERED: POTASSIUM CHLORIDE ER 20 MEQ TAB.ER PO SCH (07:00)
[2018-01-23] MEDS: HYDROcodone/APAP 5-325MG 1 EACH TAB PO PRN ×2 (07:27→18:24)
[2018-01-23] MEDS: PANTOPRAZOLE 40 MG TABLET PO SCH (07:27)
[2018-01-23] MEDS: ATORVASTATIN 40 MG TAB PO SCH (07:27)
[2018-01-23] MEDS: ASPIRIN 325 MG TAB PO SCH (07:27)
[2018-01-23] MEDS: ASCORBIC ACID 500 MG TAB PO SCH (07:28)
[2018-01-23] MEDS: FERROUS SULFATE 325 MG TAB PO SCH (07:28)
[2018-01-23] MEDS: IPRATROPIUM-ALBUTEROL 3 ML NEB INHALATION SCH ×4 (08:07→20:13)
[2018-01-23] MEDS: SYMBICORT 160-4.5 MCG INHALER INHALATION SCH ×2 (08:07→20:13)
--- NOTE | 2018-01-23 10:09 | P.PN ---
Subjective Progress Note Date: 01/23/18 Principal diagnosis: Severe mitral valve stenosis, moderate to severe tricuspid valve regurgitation, long-standing persistent atrial fibrillation, COPD, history of CVA 2 with residual left-sided weakness, hypertension, hyperlipidemia, history of myocardial infarction, history of coronary artery disease, osteoarthritis, chronic low back pain, degenerative disc disease, history of ASD with closure in 2012, history of congestive heart failure, chronic tobacco dependence, history of pneumonia requiring intubation. POD #5 mitral valve replacement with a number 31-33 On-X mechanical mitral valve , tricuspid valve repair with a #32 mm MC 3 tricuspid ring, clip ligation of the left atrial appendage with a #32 x 45 mm atrial clip, intraoperative transesophageal echocardiogram. Patient is currently sitting up to the bedside chair. She is in no acute distress. She denies any complaints of shortness of breath or pain at this time. She is coughing and deep breathing and demonstrating good use on her incentive spirometry, achieving 500 - 750 mL on her incentive spirometry. Bedside telemetry is demonstrating a V paced rhythm heart rate 50. Underlying rhythm is junctional heart rate in the 40s. Objective - Vital Signs Vital signs: Vital Signs Temp 98.5 F 01/23/18 04:00 Pulse 50 L 01/23/18 09:00 Resp 24 01/23/18 09:00 BP 93/42 01/23/18 09:00 Pulse Ox 97 01/23/18 09:00 Intake & Output 01/22/18 01/23/18 01/23/18 18:59 06:59 18:59 Intake Total 201.536 Output Total 250 600 Balance -48.464 -600 Weight 69.7 kg Intake: IV 104 Lactated Ringers 1,000 ml 80 @ 20 mls/hr IV .Q24H JUAN A Rx#:[id number] Pressure Bag: Normal 24 Saline Intake, IV Titration 97.536 Amount Norepinephrine 4 mg In 97.536 Sodium Chloride 0.9% 250 ml @ Titrate IV .Q0M JUAN A Rx#:[id number] Output: Chest Tube Drainage 0 Lt and Rt medistinal CT 0 Urine 250 600 Other: Voiding Method Bedside Commode Bedside Commode Bedside Commode # Voids 0 0 # Bowel Movements 1 ABP, PAP, CO, CI - Last Documented Arterial Blood Pressure 147/144 Pulmonary Artery Pressure 64/26 Cardiac Output 4.8 Cardiac Index 3.1 - Constitutional General appearance: Present: cooperative, no acute distress, thin - Respiratory Details: Lungs sounds essentially clear throughout, scattered crackles to bilateral bases. Respirations are symmetrical and nonlabored. Oxygen saturation is are 95% on 2 L nasal cannula. She is achieving 500-750 mL on her incentive spirometry. - Cardiovascular Details: Regular rhythm and rate. S1 and S2 present, negative for S3, gallop or murmur. Sternum is stable. Bedside telemetry showing V paced rhythm heart rate of 50. Underlying rhythm is junctional with heart rate in the 40s. Ventricular epicardial pacemaker wires intact and to backup pacemaker generator with a VVI 50. Heart hugger is in place and she is demonstrating appropriate use. Knee- high ROSALIE hose and sequential compression devices in place to bilateral lower extremities. No edema present. - Gastrointestinal Gastrointestinal Comment(s): Abdomen is soft, nontender nondistended. Active bowel sounds all 4, quadrants. Tolerating oral intake. Bowel movement yesterday 01/22/2018. - Genitourinary Genitourinary Comment(s): Voiding clear yellow urine. Adequate urine output. 500 mL output in the last 8 hours. - Integumentary Integumentary Comment(s): Skin is warm and dry. The clubbing or cyanosis present. Midline scrotal incision clean dry and approximated. No redness or drainage present. Dermabond dressing clean and dry. - Neurologic Neurologic: Present: CNII-XII intact - Musculoskeletal Musculoskeletal: Present: strength equal bilaterally, left sided weakness ( Shuffling gait.) - Psychiatric Psychiatric: Present: A&O x's 3, appropriate affect, intact judgment & insight - Allied health notes Allied health notes reviewed: nursing - Labs CBC & Chem 7: 01/23/18 05:00 01/23/18 05:00 Labs: Abnormal Lab Results - Last 24 Hours (Table) 01/22/18 01/22/18 01/22/18 Range/Units 12:09 16:54 20:58 RBC (3.80-5.40) m/uL Hgb (11.4-16.0) gm/dL Hct (34.0-46.0) % Lymphocytes # (1.0-4.8) k/uL BUN (7-17) mg/dL POC Glucose (mg/dL) 117 H 128 H 124 H (75-99) mg/dL AST (14-36) U/L Alkaline Phosphatase (38-126) U/L Total Protein (6.3-8.2) g/dL Albumin (3.5-5.0) g/dL 01/23/18 01/23/18 01/23/18 Range/Units 02:47 05:00 05:00 RBC 2.49 L (3.80-5.40) m/uL Hgb 7.4 L (11.4-16.0) gm/dL Hct 23.0 L (34.0-46.0) % Lymphocytes # 0.7 L (1.0-4.8) k/uL BUN 21 H (7-17) mg/dL POC Glucose (mg/dL) 129 H (75-99) mg/dL AST 74 H (14-36) U/L Alkaline Phosphatase 336 H (38-126) U/L Total Protein 5.5 L (6.3-8.2) g/dL Albumin 3.3 L (3.5-5.0) g/dL - Imaging and Cardiology Chest x-ray: report reviewed, image reviewed Assessment and Plan (1) Persistent atrial fibrillation Current Visit: Yes Status: Acute Code(s): I48.1 - PERSISTENT ATRIAL FIBRILLATION SNOMED Code(s): 428474241 (2) Nicotine dependence Current Visit: Yes Status: Acute Code(s): F17.200 - NICOTINE DEPENDENCE, UNSPECIFIED, UNCOMPLICATED SNOMED Code(s): 86783518 (3) Hypertension Current Visit: Yes Status: Acute Code(s): I10 - ESSENTIAL (PRIMARY) HYPERTENSION SNOMED Code(s): 70248684 (4) Hyperlipidemia Current Visit: Yes Status: Acute Code(s): E78.5 - HYPERLIPIDEMIA, UNSPECIFIED SNOMED Code(s): 39345384 (5) CHF (congestive heart failure) Current Visit: No Status: Acute Code(s): I50.9 - HEART FAILURE, UNSPECIFIED SNOMED Code(s): 44731279 (6) COPD (chronic obstructive pulmonary disease) Current Visit: No Status: Acute Code(s): J44.9 - CHRONIC OBSTRUCTIVE PULMONARY DISEASE, UNSPECIFIED SNOMED Code(s): 02711653 (7) Diastolic CHF, acute on chronic Current Visit: No Status: Acute Code(s): I50.33 - ACUTE ON CHRONIC DIASTOLIC (CONGESTIVE) HEART FAILURE SNOMED Code(s): 934603311 (8) History of pneumonia Current Visit: No Status: Acute Code(s): Z87.01 - PERSONAL HISTORY OF PNEUMONIA (RECURRENT) SNOMED Code(s): 081581909 (9) Mitral stenosis Current Visit: No Status: Acute Code(s): I05.0 - RHEUMATIC MITRAL STENOSIS SNOMED Code(s): 73856812 (10) Status post patch closure of ASD Current Visit: No Status: Acute Code(s): Z98.890 - OTHER SPECIFIED POSTPROCEDURAL STATES; Z87.74 - PERSONAL HISTORY OF CONGENITAL MALFORM OF HEART AND CIRC SYS SNOMED Code(s): 738158708 (11) Chronic a-fib Current Visit: No Status: Chronic Code(s): I48.2 - CHRONIC ATRIAL FIBRILLATION SNOMED Code(s): 827838705 (12) History of CVA (cerebrovascular accident) Current Visit: No Status: Chronic Code(s): Z86.73 - PRSNL HX OF TIA (TIA), AND CEREB INFRC W/O RESID DEFICITS SNOMED Code(s): 323255397 (13) Mitral valve stenosis, severe Current Visit: No Status: Chronic Code(s): I05.0 - RHEUMATIC MITRAL STENOSIS SNOMED Code(s): 12889937 (14) Noncompliance Current Visit: No Status: Chronic Code(s): Z91.19 - PATIENT'S NONCOMPLIANCE W OTH MEDICAL TREATMENT AND REGIMEN SNOMED Code(s): 0623763 Plan: 1. Continue aspirin, statin, and heparin subcu. Continue to hold beta tay due to her bradycardia (underlying junctional rhythm heart rate in the 40s.) 2. Discontinue Toradol 3. Keep ventricular epicardial pacemaker wires in place with a VVI mode heart rate of 50 bpm. 4. Pulmonary management per Dr. Casarez's recommendations. Encourage use of her incentive spirometry every hour while awake. 5. Increase activity as tolerated. Out of bed for all meals. Physical therapy , occupational therapy and cardiac rehab following. 6. Blood sugar management and medical management per primary care service. 7. Lasix 20 mg IV 1 today. 8. GI/DVT prophylaxis. 9. We will monitor daily labs and chest x-rays. 10. Reinforced the importance of smoking cessation and continue smoking cessation education. 11. More recommendations to follow based on the patient's clinical course. Time with Patient: Greater than 30
[2018-01-23] MEDS ORDERED: FUROSEMIDE 10 MG/ML 2 ML VIAL IV STA (10:10)
--- NOTE | 2018-01-23 10:17 | XR ---
EXAMINATION TYPE: XR chest 1V portable DATE OF EXAM: 01/23/2018 HISTORY: post cardiac surgery/ post chest tube removal. REFERENCE: Previous study dated 01/22/2018. FINDINGS: The patient's right internal jugular sheath has been removed. There has been a midline ster notomy. There continue to be bibasilar airspace disease. The heart is enlarged. There are bilateral e ffusions. There is some vascular congestion without desiree edema. IMPRESSION: CONTINUING POSTSURGICAL CHANGE.
[2018-01-23] MEDS ORDERED: HEPARIN SODIUM,PORCINE 5,000 UNIT/ML 1 ML VIAL IV PRN (10:39)
[2018-01-23] MEDS ORDERED: HEPARIN SOD,PORK IN 0.45% NACL 25,000 UNIT in 0.45% NACL 1 500ML.BAG IV SCH (10:45)
--- NOTE | 2018-01-23 11:12 | P.PN ---
Subjective Progress Note Date: 01/23/18 Principal diagnosis: Valvular heart disease, status post mitral valve replacement and tricuspid valve repair. Progress note dated 01/21/2018 This is a 62-year-old female who is postop day #3, status post mitral valve replacement and tricuspid valve repair. Thought to 6 L nasal cannula. The patient remains on norepinephrine at 4 mics per minute insulin drip at half a unit per hour and lactated Ringer's at 20 mL an hour. The patient seemed be doing relatively well. The surgery was done by Dr. Ibrahim. The patient has a history of atrial fibrillation, valvular heart disease, CAD, heart failure, COPD , CVA, hyperlipidemia, hypertension, myocardial infarction, DJD and pneumonia. She also suffers some degenerative disc disease and chronic back pain. The patient is doing well in general. She denies chest pain or chest discomfort. No shortness of breath or difficulty breathing. No coughing wheezing or phlegm production. No nausea vomiting or diarrhea. Progress note dated 01/22/2018 62-year-old female who is postop day #4 status post mitral valve replacement and tricuspid valve repair. She's currently on 2 L nasal cannula. Her norepinephrine has been weaned down to 2 mics per minute. She is getting lactated Ringer's at 20 mL an hour. Chest x-ray shows some bilateral atelectasis and small effusions. She otherwise is stable. Her surgery was done by Dr. Ibrahim. She has a history of atrial fibrillation, valvular heart disease, CAD, heart failure, COPD, CVA, hyperlipidemia, hypertension, myocardial infarction, DJD and pneumonia. She also suffers some degenerative disc disease and chronic back pain. All in all, the patient is doing relatively well. Other than the norepinephrine, hemodynamically, she is stable. Progress note dated 01/23/2018 patient is seen again today in follow-up in the intensive care unit. This is postoperative day #5 of mitral valve replacement and tricuspid valve repair. She has remained pacemaker dependent and the plan is for permanent pacemaker implantation on 01/25/2018. She is maintaining good O2 saturations in the 90s on 2 L/m per nasal cannula. Her norepinephrine spinoff 24 hours now. She remains hemodynamically stable. Chest x-ray reveals bibasilar effusions and atelectasis. There is some venous congestion as well. She did receive 1 dose of IV Lasix this morning. Currently in a negative balance. White count 5.4. Hemoglobin 7.4. Creatinine 0.80. Objective - Vital Signs Vital signs: Vital Signs Temp 98.5 F 01/23/18 04:00 Pulse 50 L 01/23/18 09:00 Resp 24 01/23/18 09:00 BP 93/42 01/23/18 09:00 Pulse Ox 97 01/23/18 09:00 Intake & Output 01/22/18 01/23/18 01/23/18 18:59 06:59 18:59 Intake Total 201.536 Output Total 250 600 Balance -48.464 -600 Weight 69.7 kg Intake: IV 104 Lactated Ringers 1,000 ml 80 @ 20 mls/hr IV .Q24H JUAN A Rx#:[id number] Pressure Bag: Normal 24 Saline Intake, IV Titration 97.536 Amount Norepinephrine 4 mg In 97.536 Sodium Chloride 0.9% 250 ml @ Titrate IV .Q0M JUAN A Rx#:[id number] Output: Chest Tube Drainage 0 Lt [address] Rt [address] CT 0 Urine 250 600 Other: Voiding Method Bedside Commode Bedside Commode Bedside Commode # Voids 0 0 # Bowel Movements 1 ABP, PAP, CO, CI - Last Documented Arterial Blood Pressure 147/144 Pulmonary Artery Pressure 64/26 Cardiac Output 4.8 Cardiac Index 3.1 - Exam No acute distress, oriented 3. Nasal O2 in place. HEENT examination is grossly unremarkable. Mucous membranes are moist. No oral lesions. Neck supple. Full range of motion. No adenopathy thyromegaly or neck vein distention. Cardiovascular examination reveals regular rhythm rate. S1-S2 normal. No S3 or S4. No discernible murmur noted. Lungs reveal a few scattered rhonchi. Some crackles are noted at the bases. Breath sounds are equal bilaterally. There was no prolongation on forced maneuver.. Abdomen soft bowel sounds are heard. No masses or tenderness. Extremities are intact. No cyanosis clubbing or edema. Skin is without rash or lesion. Neurologic examination is brief but nonfocal. - Labs CBC & Chem 7: 01/23/18 05:00 01/23/18 05:00 Labs: Abnormal Lab Results - Last 24 Hours (Table) 01/22/18 01/22/18 01/22/18 Range/Units 12:09 16:54 20:58 RBC (3.80-5.40) m/uL Hgb (11.4-16.0) gm/dL Hct (34.0-46.0) % Lymphocytes # (1.0-4.8) k/uL BUN (7-17) mg/dL POC Glucose (mg/dL) 117 H 128 H 124 H (75-99) mg/dL AST (14-36) U/L Alkaline Phosphatase (38-126) U/L Total Protein (6.3-8.2) g/dL Albumin (3.5-5.0) g/dL 01/23/18 01/23/18 01/23/18 Range/Units 02:47 05:00 05:00 RBC 2.49 L (3.80-5.40) m/uL Hgb 7.4 L (11.4-16.0) gm/dL Hct 23.0 L (34.0-46.0) % Lymphocytes # 0.7 L (1.0-4.8) k/uL BUN 21 H (7-17) mg/dL POC Glucose (mg/dL) 129 H (75-99) mg/dL AST 74 H (14-36) U/L Alkaline Phosphatase 336 H (38-126) U/L Total Protein 5.5 L (6.3-8.2) g/dL Albumin 3.3 L (3.5-5.0) g/dL Assessment and Plan Assessment: Assessment Postop day #5, status post mitral valve replacement tricuspid valve repair Postoperative respiratory failure, resolved History of atrial fibrillation History of CAD History of heart failure History of COPD History of CVA/TIA Hyperlipidemia by history Hypertension by history Previous history of myocardial infarction DJD/degenerative disc disease History of pneumonia Previous history of urinary tract infection with sepsis Plan: The patient was seen and evaluated by Dr. Casarez. Her chest x-ray and labs were reviewed. She is quite stable from the pulmonary standpoint. She has been pacemaker dependent and the plan is for permanent pacemaker implantation on 03/2018. We'll continue with her current treatment plan. Continue to encourage increased use of the incentive spirometer and cough and deep breathing exercises. Increase her activity as tolerated. We'll continue to follow and make further recommendations based on her clinical status. Critical care time 33 minutes. I, the cosigning physician, performed a history & physical examination of the patient. Lungs sounds have crackles in the bilateral posterior bases. Maintaining good O2 saturations in the 90s on 2 L/m per nasal cannula. I discussed the assessment and plan of care with my nurse practitioner, Stacie Mohamud. I attest to the above note as dictated by her.
[2018-01-23 11:36] LABS: Glucose,Whole Blood 129 mg/dL (75-99)
[2018-01-23] MEDS: LACTATED RINGERS 1,000 ML IV SCH (11:53)
[2018-01-23 12:08] LABS: Partial Thromboplastin Time 25.9 sec (22.0-30.0); Prothrombin Time 9.5 sec (9.0-12.0)
[2018-01-23 17:25] LABS: Glucose,Whole Blood 131 mg/dL (75-99)
[2018-01-23 20:45] LABS: Glucose,Whole Blood 164 mg/dL (75-99)
[2018-01-23] MEDS: SENNOSIDES-DOCUSATE SODIUM 1 EACH TAB PO SCH (21:40)
[2018-01-23] MEDS: ESCITALOPRAM 10 MG TAB PO SCH (21:41)
[2018-01-24 02:08] LABS: Glucose,Whole Blood 104 mg/dL (75-99)
[2018-01-24] MEDS: INSULIN ASPART 100 UNIT/ML 1 ML 10 ML VIAL SQ SCH ×5 (04:09→20:14)
[2018-01-24 07:12] LABS: Basophils % (A) 1 %; Eosinophils # (A) 0.3 k/uL (0-0.7); Eosinophils % (A) 5 %; HCT 25.7 % (34.0-46.0); HGB 8.2 gm/dL (11.4-16.0); Lymphocytes # (A) 0.9 k/uL (1.0-4.8); Lymphocytes % (A) 14 %; MCH 29.5 pg (25.0-35.0); MCHC 31.7 g/dL (31.0-37.0); MCV 92.8 fL (80.0-100.0); Mean Platelet Volume 9.4; Monocytes # (A) 0.5 k/uL (0-1.0); Monocytes % (A) 8 %; Neutrophils # (A) 4.2 k/uL (1.3-7.7); Neutrophils % (A) 70 %; Platelet Count 183 k/uL (150-450); RBC 2.77 m/uL (3.80-5.40); WBC 6.1 k/uL (3.8-10.6)
[2018-01-24 07:26] LABS: Anion Gap 16 mmol/L; Calcium 8.5 mg/dL (8.4-10.2); Carbon Dioxide 22 mmol/L (22-30); Chloride 99 mmol/L (98-107); Glucose 107 mg/dL (74-99); Sodium 137 mmol/L (137-145)
[2018-01-24 07:27] LABS: Glucose,Whole Blood 102 mg/dL (75-99)
[2018-01-24 07:28] LABS: Blood Urea Nitrogen 21 mg/dL (7-17); Potassium 4.8 mmol/L (3.5-5.1)
[2018-01-24] MEDS: IPRATROPIUM-ALBUTEROL 3 ML NEB INHALATION SCH ×4 (08:02→20:52)
[2018-01-24] MEDS: SYMBICORT 160-4.5 MCG INHALER INHALATION SCH ×2 (08:02→21:07)
[2018-01-24] MEDS ORDERED: FUROSEMIDE 10 MG/ML 4 ML VIAL IV STA (08:53)
[2018-01-24] MEDS: ASCORBIC ACID 500 MG TAB PO SCH (09:01)
[2018-01-24] MEDS: PANTOPRAZOLE 40 MG TABLET PO SCH (09:01)
[2018-01-24] MEDS: ATORVASTATIN 40 MG TAB PO SCH (09:02)
[2018-01-24] MEDS: FERROUS SULFATE 325 MG TAB PO SCH (09:02)
[2018-01-24] MEDS: ASPIRIN 81 MG PO SCH (09:02)
[2018-01-24] MEDS: HYDROcodone/APAP 5-325MG 1 EACH TAB PO PRN ×2 (09:07→15:46)
--- NOTE | 2018-01-24 09:21 | P.PN ---
Subjective Progress Note Date: 01/24/18 Principal diagnosis: Status post mitral valve replacement and tricuspid valve repair Progress note dated 01/21/2018 This is a 62-year-old female who is postop day #3, status post mitral valve replacement and tricuspid valve repair. Thought to 6 L nasal cannula. The patient remains on norepinephrine at 4 mics per minute insulin drip at half a unit per hour and lactated Ringer's at 20 mL an hour. The patient seemed be doing relatively well. The surgery was done by Dr. Ibrahim. The patient has a history of atrial fibrillation, valvular heart disease, CAD, heart failure, COPD , CVA, hyperlipidemia, hypertension, myocardial infarction, DJD and pneumonia. She also suffers some degenerative disc disease and chronic back pain. The patient is doing well in general. She denies chest pain or chest discomfort. No shortness of breath or difficulty breathing. No coughing wheezing or phlegm production. No nausea vomiting or diarrhea. Progress note dated 01/22/2018 62-year-old female who is postop day #4 status post mitral valve replacement and tricuspid valve repair. She's currently on 2 L nasal cannula. Her norepinephrine has been weaned down to 2 mics per minute. She is getting lactated Ringer's at 20 mL an hour. Chest x-ray shows some bilateral atelectasis and small effusions. She otherwise is stable. Her surgery was done by Dr. Ibrahim. She has a history of atrial fibrillation, valvular heart disease, CAD, heart failure, COPD, CVA, hyperlipidemia, hypertension, myocardial infarction, DJD and pneumonia. She also suffers some degenerative disc disease and chronic back pain. All in all, the patient is doing relatively well. Other than the norepinephrine, hemodynamically, she is stable.. Progress note dated 01/24/2018 62-year-old female who is postop day #6, status post mitral valve replacement and tricuspid valve repair. She still on nasal O2 at 2 L. She has been weaned off of norepinephrine. She apparently is going to be getting a permanent pacemaker early this week. Her surgery was done by Dr. Ibrahim. She has a history of atrial fibrillation and valvular heart disease CAD heart failure COPD CVA hyperlipidemia hypertension myocardial infarction DJD and pneumonia. She also has degenerative disc disease and chronic back pain. All in all, doing reasonably well. The patient denies any difficulty breathing coughing wheezing or phlegm production. Hemodynamics have been stable. Objective - Vital Signs Vital signs: Vital Signs Temp 98.3 F 01/24/18 04:00 Pulse 50 L 01/24/18 08:16 Resp 18 01/24/18 06:00 BP 117/52 01/24/18 06:00 Pulse Ox 94 L 01/24/18 06:00 Intake & Output 01/23/18 01/24/18 01/24/18 18:59 06:59 18:59 Intake Total 10 266.236 Output Total 0 750 Balance 10 -483.764 Weight 73.7 kg Intake: IV 10 140 KVO 10 140 Intake, IV Titration 126.236 Amount Heparin Sod,Pork in 0.45% 126.236 NaCl 25,000 unit In 0.45 % NaCl 1 500ml.bag @ 12 UNITS/KG/HR 16.72 mls/hr IV .Q24H JUAN A Rx#: [id number] Output: Urine 0 750 Other: Voiding Method Bedside Commode Bedside Commode # Voids 200 ABP, PAP, CO, CI - Last Documented Arterial Blood Pressure 147/144 Pulmonary Artery Pressure 64/26 Cardiac Output 4.8 Cardiac Index 3.1 - Exam No acute distress, oriented 3. Nasal O2 in place. HEENT examination is grossly unremarkable. Mucous membranes are moist. No oral lesions. Neck supple. Full range of motion. No adenopathy thyromegaly or neck vein distention. Cardiovascular examination reveals regular rhythm rate. S1-S2 normal. No S3 or S4. No discernible murmur noted. Lungs reveal a few scattered rhonchi. Some crackles are noted at the bases. Breath sounds are equal bilaterally. There was no prolongation on forced maneuver.. Abdomen soft bowel sounds are heard. No masses or tenderness. Extremities are intact. No cyanosis clubbing or edema. Skin is without rash or lesion. Neurologic examination is brief but nonfocal. - Labs CBC & Chem 7: 01/24/18 06:38 01/24/18 06:38 Labs: Abnormal Lab Results - Last 24 Hours (Table) 01/23/18 01/23/18 01/23/18 Range/Units 11:34 17:23 18:14 RBC (3.80-5.40) m/uL Hgb (11.4-16.0) gm/dL Hct (34.0-46.0) % Lymphocytes # (1.0-4.8) k/uL APTT 30.5 H (22.0-30.0) sec BUN (7-17) mg/dL Glucose (74-99) mg/dL POC Glucose (mg/dL) 129 H 131 H (75-99) mg/dL 01/23/18 01/24/18 01/24/18 Range/Units 20:43 02:06 06:38 RBC (3.80-5.40) m/uL Hgb (11.4-16.0) gm/dL Hct (34.0-46.0) % Lymphocytes # (1.0-4.8) k/uL APTT (22.0-30.0) sec BUN 21 H (7-17) mg/dL Glucose 107 H (74-99) mg/dL POC Glucose (mg/dL) 164 H 104 H (75-99) mg/dL 01/24/18 01/24/18 01/24/18 Range/Units 06:38 06:38 07:26 RBC 2.77 L (3.80-5.40) m/uL Hgb 8.2 L (11.4-16.0) gm/dL Hct 25.7 L (34.0-46.0) % Lymphocytes # 0.9 L (1.0-4.8) k/uL APTT 32.8 H (22.0-30.0) sec BUN (7-17) mg/dL Glucose (74-99) mg/dL POC Glucose (mg/dL) 102 H (75-99) mg/dL Assessment and Plan Assessment: Assessment Postop day #6, status post mitral valve replacement tricuspid valve repair Postoperative respiratory failure, resolved History of atrial fibrillation History of CAD History of heart failure History of COPD History of CVA/TIA Hyperlipidemia by history Hypertension by history Previous history of myocardial infarction DJD/degenerative disc disease History of pneumonia Previous history of urinary tract infection with sepsis Plan: Plan dated 01/19/2018 The patient was extubated last night. The patient's doing well. We'll continue to follow along. We recommend deep breathing coughing and clearing of secretions. Also recommend using the incentive spirometer every hour while awake. No additional recommendations are made. We'll continue to follow. Prognosis is guarded. Plan dated 01/21/2018 The patient remains on O2 at 6 L. Also remains on a relatively smaller dose of norepinephrine at 4 mcg/m. The patient's also on an insulin drip at less than 1 unit per hour and lactated Ringer's at 20 mL an hour. Additional recommendations are made. We'll continue to follow. Prognosis is guarded. Plan dated 01/22/2018 The patient seemed be doing relatively well. The norepinephrine has been weaned down to 2 mcg/m. She is getting lactated Ringer's at 20 mL an hour and nasal O2 at 2 L. Chest x-ray labs and medications are all reviewed. She is postop day #4. Making nice progress. We'll continue to follow. Plan dated 01/24/2018 The patient's doing well. Possible pacemaker insertion early this week. If interventional no major changes in the patient's health since she's been here. She actually progressed very nicely. Respiratory status is stable. No hemodynamic issues. Patient issues primarily related to rhythm. We'll continue to follow. The patient will stay here in the ICU pending pacemaker placement. Time with Patient: Less than 30
[2018-01-24] MEDS ORDERED: DEXTROSE IV SCH (09:45)
[2018-01-24] MEDS ORDERED: D5W PMX IV SCH (09:45)
[2018-01-24] MEDS ORDERED: HEPARIN SODIUM PORCINE IV SCH (09:45)
[2018-01-24] MEDS ORDERED: WATER IV SCH (09:45)
--- NOTE | 2018-01-24 11:11 | P.PN ---
Subjective Progress Note Date: 01/24/18 Principal diagnosis: Severe mitral valve stenosis, moderate to severe tricuspid valve regurgitation, long-standing persistent atrial fibrillation, COPD, history of CVA 2 with residual left-sided weakness, hypertension, hyperlipidemia, history of myocardial infarction, history of coronary artery disease, osteoarthritis, chronic low back pain, degenerative disc disease, history of ASD with closure in 2012, history of congestive heart failure, chronic tobacco dependence, history of pneumonia requiring intubation. POD #6 mitral valve replacement with a number 31-33 On-X mechanical mitral valve , tricuspid valve repair with a #32 mm MC 3 tricuspid ring, clip ligation of the left atrial appendage with a #32 x 45 mm atrial clip, intraoperative transesophageal echocardiogram. Patient is currently sitting up to the bedside chair. She is in no acute distress. She denies any complaints of shortness of breath or pain at this time. She is coughing and deep breathing and demonstrating good use on her incentive spirometry, achieving 500 - 750 mL on her incentive spirometry. Bedside telemetry is demonstrating a V paced rhythm heart rate 50. Underlying rhythm is junctional heart rate in the 40s. She reports she was ambulating with assistance from physical therapy in the ICU hallway yesterday 2. Objective - Vital Signs Vital signs: Vital Signs Temp 98.3 F 01/24/18 04:00 Pulse 50 L 01/24/18 08:16 Resp 18 01/24/18 06:00 BP 117/52 01/24/18 06:00 Pulse Ox 94 L 01/24/18 06:00 Intake & Output 01/23/18 01/24/18 01/24/18 18:59 06:59 18:59 Intake Total 10 266.236 283.679 Output Total 0 750 Balance 10 -483.764 283.679 Weight 73.7 kg Intake: IV 10 140 KVO 10 140 Intake, IV Titration 126.236 283.679 Amount Heparin Sod,Pork in 0.45% 126.236 283.679 NaCl 25,000 unit In 0.45 % NaCl 1 500ml.bag @ 12 UNITS/KG/HR 16.72 mls/hr IV .Q24H JUAN A Rx#: [id number] Output: Urine 0 750 Other: Voiding Method Bedside Commode Bedside Commode # Voids 200 ABP, PAP, CO, CI - Last Documented Arterial Blood Pressure 147/144 Pulmonary Artery Pressure 64/26 Cardiac Output 4.8 Cardiac Index 3.1 - Constitutional General appearance: Present: cooperative, no acute distress, thin - Respiratory Details: Lung sounds with few scattered crackles to her bilateral bases and faint expiratory wheezes heard throughout. Respirations are symmetrical and nonlabored. Oxygen saturation are 94% on 3 L nasal cannula. She is achieving 500-750 mL on her incentive spirometry. - Cardiovascular Details: Regular rhythm and bradycardic rate. S1 and S2 present. Negative for S3, gallop or murmur. Bedside telemetry showing V paced rhythm heart rate 50. Underlying rhythm is junctional heart rate in the 40s. Sternum is stable. Heart hugger is applied since she has demonstrating appropriate use. Ventricular epicardial pacemaker wires intact and to backup generator on a VVI mode of 50. Knee-high ROSALIE hose and sequential compression devices in place to her bilateral lower extremities. Trace bilateral lower extremity edema. - Gastrointestinal Gastrointestinal Comment(s): Abdomen is soft, nontender and nondistended. Active bowel sounds to all 4 abdominal quadrants. Already oral intake. Bowel movement this a.m. - Genitourinary Genitourinary Comment(s): Voiding clear yellow urine. 750 mL output in the last 8 hours. - Integumentary Integumentary Comment(s): Skin is warm and dry. No clubbing or cyanosis present. Midline sternal incision clean and dry and approximated. No drainage or redness present. Dermabond dressing clean and dry. - Neurologic Neurologic: Present: CNII-XII intact - Musculoskeletal Musculoskeletal Comment(s): Shuffling gait. Musculoskeletal: Present: generalized weakness, left sided weakness - Psychiatric Psychiatric: Present: A&O x's 3, appropriate affect, intact judgment & insight - Allied health notes Allied health notes reviewed: nursing - Labs CBC & Chem 7: 01/24/18 06:38 01/24/18 06:38 Labs: Abnormal Lab Results - Last 24 Hours (Table) 01/23/18 01/23/18 01/23/18 Range/Units 11:34 17:23 18:14 RBC (3.80-5.40) m/uL Hgb (11.4-16.0) gm/dL Hct (34.0-46.0) % Lymphocytes # (1.0-4.8) k/uL APTT 30.5 H (22.0-30.0) sec BUN (7-17) mg/dL Glucose (74-99) mg/dL POC Glucose (mg/dL) 129 H 131 H (75-99) mg/dL 18 18 01/24/18 Range/Units 20:43 02:06 06:38 RBC (3.80-5.40) m/uL Hgb (11.4-16.0) gm/dL Hct (34.0-46.0) % Lymphocytes # (1.0-4.8) k/uL APTT (22.0-30.0) sec BUN 21 H (7-17) mg/dL Glucose 107 H (74-99) mg/dL POC Glucose (mg/dL) 164 H 104 H (75-99) mg/dL 01/24/1818 01/24/18 Range/Units 06:38 06:38 07:26 RBC 2.77 L (3.80-5.40) m/uL Hgb 8.2 L (11.4-16.0) gm/dL Hct 25.7 L (34.0-46.0) % Lymphocytes # 0.9 L (1.0-4.8) k/uL APTT 32.8 H (22.0-30.0) sec BUN (7-17) mg/dL Glucose (74-99) mg/dL POC Glucose (mg/dL) 102 H (75-99) mg/dL Assessment and Plan (1) Persistent atrial fibrillation Current Visit: Yes Status: Acute Code(s): I48.1 - PERSISTENT ATRIAL FIBRILLATION SNOMED Code(s): 460753162 (2) Nicotine dependence Current Visit: Yes Status: Acute Code(s): F17.200 - NICOTINE DEPENDENCE, UNSPECIFIED, UNCOMPLICATED SNOMED Code(s): 88753218 (3) Hypertension Current Visit: Yes Status: Acute Code(s): I10 - ESSENTIAL (PRIMARY) HYPERTENSION SNOMED Code(s): 89569961 (4) Hyperlipidemia Current Visit: Yes Status: Acute Code(s): E78.5 - HYPERLIPIDEMIA, UNSPECIFIED SNOMED Code(s): 13526275 (5) CHF (congestive heart failure) Current Visit: No Status: Acute Code(s): I50.9 - HEART FAILURE, UNSPECIFIED SNOMED Code(s): 39452653 (6) COPD (chronic obstructive pulmonary disease) Current Visit: No Status: Acute Code(s): J44.9 - CHRONIC OBSTRUCTIVE PULMONARY DISEASE, UNSPECIFIED SNOMED Code(s): 15044738 (7) Diastolic CHF, acute on chronic Current Visit: No Status: Acute Code(s): I50.33 - ACUTE ON CHRONIC DIASTOLIC (CONGESTIVE) HEART FAILURE SNOMED Code(s): 530771005 (8) History of pneumonia Current Visit: No Status: Acute Code(s): Z87.01 - PERSONAL HISTORY OF PNEUMONIA (RECURRENT) SNOMED Code(s): 205910779 (9) Mitral stenosis Current Visit: No Status: Acute Code(s): I05.0 - RHEUMATIC MITRAL STENOSIS SNOMED Code(s): 39962924 (10) Status post patch closure of ASD Current Visit: No Status: Acute Code(s): Z98.890 - OTHER SPECIFIED POSTPROCEDURAL STATES; Z87.74 - PERSONAL HISTORY OF CONGENITAL MALFORM OF HEART AND CIRC SYS SNOMED Code(s): 442701506 (11) Chronic a-fib Current Visit: No Status: Chronic Code(s): I48.2 - CHRONIC ATRIAL FIBRILLATION SNOMED Code(s): 214658663 (12) History of CVA (cerebrovascular accident) Current Visit: No Status: Chronic Code(s): Z86.73 - PRSNL HX OF TIA (TIA), AND CEREB INFRC W/O RESID DEFICITS SNOMED Code(s): 876516933 (13) Mitral valve stenosis, severe Current Visit: No Status: Chronic Code(s): I05.0 - RHEUMATIC MITRAL STENOSIS SNOMED Code(s): 45783637 (14) Noncompliance Current Visit: No Status: Chronic Code(s): Z91.19 - PATIENT'S NONCOMPLIANCE W OTH MEDICAL TREATMENT AND REGIMEN SNOMED Code(s): 3249283 Plan: 1. Continue aspirin, statin, and heparin subcu. Continue to hold beta tay due to her bradycardia (underlying junctional rhythm heart rate in the 40s.) 2. Discontinue heparin drip at 4 AM on 01/25/2018 prior to permanent pacemaker placement. 3. Keep ventricular epicardial pacemaker wires in place with a VVI mode heart rate of 50 bpm. 4. Pulmonary management per Dr. Casarez's recommendations. Encourage use of her incentive spirometry every hour while awake. 5. Increase activity as tolerated. Out of bed for all meals. Physical therapy , occupational therapy and cardiac rehab following. 6. Blood sugar management and medical management per primary care service. 7. Lasix 40 mg IV 1 today. 8. GI/DVT prophylaxis. 9. We will monitor daily labs and chest x-rays. 10. Reinforced the importance of smoking cessation and continue smoking cessation education. 11. Patient is scheduled for permanent pacemaker placement on Thursday morning at 7:30 AM to be performed by Dr. Dominic Ibrahim. 12. More recommendations to follow based on the patient's clinical course. Time with Patient: Greater than 30
[2018-01-24 11:33] LABS: Glucose,Whole Blood 107 mg/dL (75-99)
[2018-01-24] MEDS: HEPARIN SODIUM,PORCINE/D5W PMX 25,000 UNIT in DEXTROSE/WATER 1 500ML.BAG IV SCH (11:36)
[2018-01-24] MEDS: LACTATED RINGERS 1,000 ML IV SCH (15:44)
[2018-01-24 17:29] LABS: Glucose,Whole Blood 160 mg/dL (75-99)
[2018-01-24 20:10] LABS: Glucose,Whole Blood 111 mg/dL (75-99)
[2018-01-24] MEDS: ESCITALOPRAM 10 MG TAB PO SCH (20:18)
[2018-01-24] MEDS: SENNOSIDES-DOCUSATE SODIUM 1 EACH TAB PO SCH (20:18)
[2018-01-25 02:47] LABS: Glucose,Whole Blood 137 mg/dL (75-99)
[2018-01-25] MEDS: INSULIN ASPART 100 UNIT/ML 1 ML 10 ML VIAL SQ SCH ×5 (02:48→22:20)
[2018-01-25 04:17] LABS: Basophils % (A) 0 %; Eosinophils # (A) 0.2 k/uL (0-0.7); Eosinophils % (A) 2 %; HCT 24.9 % (34.0-46.0); HGB 7.8 gm/dL (11.4-16.0); Hypochromasia Slight; Lymphocytes # (A) 1.1 k/uL (1.0-4.8); Lymphocytes % (A) 12 %; MCH 29.1 pg (25.0-35.0); MCHC 31.3 g/dL (31.0-37.0); Mean Platelet Volume 8.7; Monocytes % (A) 10 %; Neutrophils # (A) 7.2 k/uL (1.3-7.7); Neutrophils % (A) 74 %; Platelet Count 265 k/uL (150-450); RBC 2.68 m/uL (3.80-5.40); WBC 9.8 k/uL (3.8-10.6)
[2018-01-25 04:28] LABS: Anion Gap 15 mmol/L; Blood Urea Nitrogen 19 mg/dL (7-17); Calcium 8.6 mg/dL (8.4-10.2); Carbon Dioxide 23 mmol/L (22-30); Chloride 96 mmol/L (98-107); Glucose 112 mg/dL (74-99); Phosphorus 3.8 mg/dL (2.5-4.5); Potassium 4.6 mmol/L (3.5-5.1); Sodium 134 mmol/L (137-145)
--- NOTE | 2018-01-25 07:23 | XR ---
EXAMINATION TYPE: XR chest 1V portable DATE OF EXAM: 01/25/2018 CLINICAL HISTORY: Difficulty breathing progress study. Chest tube removal. TECHNIQUE: Single AP portable upright view of the chest is obtained. COMPARISON: Chest x-ray from 2 days earlier and older studies. FINDINGS: Overlying EKG wires are redemonstrated. Overlying sternal wires are again seen. There is m etallic mitral valvular ring and aortic valve as well as cardiac closure device left lateral aspect a ll redemonstrated. There is persistent cardiomegaly and central vascular congestion, with small bilat eral pleural effusions and associated bibasilar atelectasis and/or infiltrate all redemonstrated. Oss eous structures are intact. IMPRESSION: Overall stable findings, suspect CHF exacerbation as there is cardiomegaly with central vascular congestion and small bilateral pleural effusions all redemonstrated. Associated bibasilar a telectasis and/or infiltrate is noted.
[2018-01-25] MEDS ORDERED: ceFAZolin 1,000 MG in DEXTROSE/WATER 1 50ML.BAG IVPB ONE (07:30)
[2018-01-25 07:35] LABS: Glucose,Whole Blood 105 mg/dL (75-99)
[2018-01-25] MEDS ORDERED: LACTATED RINGERS 1,000 ML IV ONE (08:00)
[2018-01-25] MEDS: IPRATROPIUM-ALBUTEROL 3 ML NEB INHALATION SCH ×4 (08:01→19:55)
[2018-01-25] MEDS: SYMBICORT 160-4.5 MCG INHALER INHALATION SCH ×2 (08:01→19:55)
[2018-01-25] MEDS ORDERED: ceFAZolin 1,000 MG/50 ML BAG (PMX) IVPB ONE (08:23)
[2018-01-25] MEDS ORDERED: BUPIVACAINE (PF) 0.5% 30 ML VIAL SQ ONE (08:26)
--- NOTE | 2018-01-25 09:29 | FL ---
EXAMINATION TYPE: FL guided central line placemt DATE OF EXAM: 01/25/2018 CLINICAL HISTORY: Arrhythmia status post pacemaker placement. TECHNIQUE: Fluoroscopy. COMPARISON: None. FINDINGS: Fluoroscopic guidance was provided during pacemaker insertion procedure performed by cardi ologist. A total of 44 seconds of fluoroscopic time was utilized during the procedure and one spot i ntraoperative image is acquired. Single image acquired shows single lead projecting over the expected area of right ventricle. There are sternal wires and surgical valves and closure devices incidentall y seen. IMPRESSION: As Above.
[2018-01-25] MEDS: HYDROcodone/APAP 5-325MG 1 EACH TAB PO PRN ×2 (09:42→15:32)
[2018-01-25] MEDS: PANTOPRAZOLE 40 MG TABLET PO SCH (09:42)
[2018-01-25] MEDS: ATORVASTATIN 40 MG TAB PO SCH (09:42)
[2018-01-25] MEDS: ASPIRIN 81 MG PO SCH (09:43)
[2018-01-25] MEDS: ASCORBIC ACID 500 MG TAB PO SCH (09:43)
[2018-01-25] MEDS: FERROUS SULFATE 325 MG TAB PO SCH (09:43)
--- NOTE | 2018-01-25 10:27 | P.PN ---
<Noemi Donald M - Last Filed: 01/25/18 10:11> Subjective Progress Note Date: 01/25/18 Principal diagnosis: Severe mitral valve stenosis, moderate to severe tricuspid valve regurgitation, status post mitral valve replacement and tricuspid valve repair, postop day 2 Consult dated 01/19/2018 62-year-old female postop day #1 status post mitral valve replacement and tricuspid valve repair. The surgery was done by Dr. Ibrahim. Currently, the patient's on O2 at 4 L by nasal cannula. Her IVs include norepinephrine at 6 mcg/m, insulin drip at 1.5 units per hour, lactated Ringer's at 50 mL an hour and Primacor 0.375 mcg/kg/m. The patient had excellent weaning parameters and blood gas and a positive cuff leak test and she was extubated last night. She has a history of atrial fibrillation valvular heart disease CAD heart failure COPD CVA hyperlipidemia hypertension myocardial infarction DJD and pneumonia. She also suffers from degenerative disc disease and chronic back pain and urinary incontinence and number of other major medical problems. Surgically, she status post thyroidectomy cholecystectomy heart catheterization with pretty procedures and tonsillectomy. On 01/20/2018 patient seen in follow-up in the intensive care unit. She is sitting up in a recliner, she is awake alert, denies any acute distress. On 6 L per high flow nasal cannula, with O2 sat at 98%. Maintenance IV fluid is LR at 50 ML per hour, Primacor at 0.125 mcg/kg/min, and insulin at 1 unit per hour. Patient is receiving 1 unit of PRBC, for a hemoglobin of 7.0, and patient was a bit hypotensive this morning with BP of 84/55, and his decision was made per cardiothoracic surgery to transfuse the patient. PA pressures are 75/30, cardiac output and index are 4.8 and 2.9 respectively. Patient is compliant with incentive spirometry and is able to achieve 1500 on it today. Patient has a ventricular epicardial wire, and is being paced at a rate of 70 BPM. Owusu catheter is in place, and the patient is making light zee colored urine, and the urine output has been ranging from 30-125 ML per hour. Patient is tolerating a full liquid diet, her pain is controlled. There are 2 mediastinal chest tubes draining serosanguineous output. Progress note dated 01/21/2018 This is a 62-year-old female who is postop day #3, status post mitral valve replacement and tricuspid valve repair. Thought to 6 L nasal cannula. The patient remains on norepinephrine at 4 mics per minute insulin drip at half a unit per hour and lactated Ringer's at 20 mL an hour. The patient seemed be doing relatively well. The surgery was done by Dr. Ibrahim. The patient has a history of atrial fibrillation, valvular heart disease, CAD, heart failure, COPD , CVA, hyperlipidemia, hypertension, myocardial infarction, DJD and pneumonia. She also suffers some degenerative disc disease and chronic back pain. The patient is doing well in general. She denies chest pain or chest discomfort. No shortness of breath or difficulty breathing. No coughing wheezing or phlegm production. No nausea vomiting or diarrhea. Progress note dated 01/22/2018 62-year-old female who is postop day #4 status post mitral valve replacement and tricuspid valve repair. She's currently on 2 L nasal cannula. Her norepinephrine has been weaned down to 2 mics per minute. She is getting lactated Ringer's at 20 mL an hour. Chest x-ray shows some bilateral atelectasis and small effusions. She otherwise is stable. Her surgery was done by Dr. Ibrahim. She has a history of atrial fibrillation, valvular heart disease, CAD, heart failure, COPD, CVA, hyperlipidemia, hypertension, myocardial infarction, DJD and pneumonia. She also suffers some degenerative disc disease and chronic back pain. All in all, the patient is doing relatively well. Other than the norepinephrine, hemodynamically, she is stable.. Progress note dated 01/24/2018 62-year-old female who is postop day #6, status post mitral valve replacement and tricuspid valve repair. She still on nasal O2 at 2 L. She has been weaned off of norepinephrine. She apparently is going to be getting a permanent pacemaker early this week. Her surgery was done by Dr. Ibrahim. She has a history of atrial fibrillation and valvular heart disease CAD heart failure COPD CVA hyperlipidemia hypertension myocardial infarction DJD and pneumonia. She also has degenerative disc disease and chronic back pain. All in all, doing reasonably well. The patient denies any difficulty breathing coughing wheezing or phlegm production. Hemodynamics have been stable. On 01/25/2018 patient seen in follow-up. Patient is status post permanent pacemaker insertion for sick sinus syndrome today on 01/25/[address] Ibrahim. Patient has returned to the room in the intensive care in stable condition, currently she is up in the recliner, left upper chest incision where the pacemaker was inserted is covered with a surgical dressing, incision site is soft, clean dry well approximated, no evidence of hematoma noted. Patient is being ventricular paced at a rate of 60 BPM, still has epicardial wires in place until tomorrow 01/26/2018. Patient denies any pain or shortness of breath. She is compliant with her incentive spirometry, achieving 500-750 on the today. Lung sounds are positive for some scattered rales and a few scattered wheezes. Patient had her chest tubes discontinued. Owusu catheter has been discontinued and the patient is voiding. Patient is tolerating oral diet. Lab work has been reviewed, WBCs 9.8, hemoglobin is 7.8, sodium is 134, chloride is 96, BUN is 19, and creatinine 0.80. Today's chest x-ray shows overall stable findings, CHF, cardiomegaly with central vascular congestion and small bilateral pleural effusions. Objective - Vital Signs Vital signs: Vital Signs Temp 98.6 F 01/25/18 04:00 Pulse 60 01/25/18 09:05 Resp 18 01/25/18 09:05 BP 114/66 01/25/18 09:05 Pulse Ox 94 L 01/25/18 09:05 Intake & Output 01/24/18 01/25/18 01/25/18 18:59 06:59 18:59 Intake Total 360.870 330.843 200 Output Total 800 600 15 Balance -439.130 -269.157 185 Weight 74.8 kg Intake: IV 200 Intake, IV Titration 360.870 330.843 Amount Heparin Sod,Pork in 0.45% 283.679 NaCl 25,000 unit In 0.45 % NaCl 1 500ml.bag @ 12 UNITS/KG/HR 16.72 mls/hr IV .Q24H JUAN A Rx#: [id number] Heparin Sodium,Porcine/ 77.191 330.843 D5w Pmx 25,000 unit In Dextrose/Water 1 500ml. bag @ 12 UNITS/KG/HR 16. 72 mls/hr IV .Q24H JUAN A Rx #:[id number] Output: Urine 800 600 0 Estimated Blood Loss 15 Other: Voiding Method Bedside Commode Bedside Commode # Voids 1 ABP, PAP, CO, CI - Last Documented Arterial Blood Pressure 147/144 Pulmonary Artery Pressure 64/26 Cardiac Output 4.8 Cardiac Index 3.1 - Exam GENERAL EXAM: Alert, pleasant, 62-year-old white female, comfortable in no apparent distress. HEAD: Normocephalic/atraumatic. EYES: Normal reaction of pupils, equal size. Conjunctiva pink, sclera white. NOSE: Clear with pink turbinates. THROAT: No erythema or exudates. NECK: No masses, no JVD, no thyroid enlargement, no adenopathy. CHEST: No chest wall deformity. Symmetrical expansion. Midsternal incision is clean dry and intact, there has been interval change of mediastinal chest tube removal, patient has a left upper chest pacemaker insertion site incision, covered with surgical dressing, clean dry and intact, no signs of hematoma. Ventricular epicardial wires are still in place until 01/26/2018 LUNGS: Equal air entry with some scattered rales, and a few scattered wheezes CVS: Regular rate and rhythm, normal S1 and S2, no gallops, no murmurs, no rubs ABDOMEN: Soft, nontender. No hepatosplenomegaly, normal bowel sounds, no guarding or rigidity. EXTREMITIES: No clubbing, no edema, no cyanosis, 2+ pulses and upper and lower extremities. Patient has SCDs on, and antiembolism stockings MUSCULOSKELETAL: Left-sided weakness from a previous CVA SPINE: No scoliosis or deformity SKIN: No rashes CENTRAL NERVOUS SYSTEM: Alert and oriented -3. No focal deficits, tone is normal in all 4 extremities. PSYCHIATRIC: Alert and oriented -3. Appropriate affect. Intact judgment and insight. - Labs CBC & Chem 7: 01/25/18 03:37 01/25/18 03:37 Labs: Abnormal Lab Results - Last 24 Hours (Table) 01/24/18 01/24/18 01/24/18 Range/Units 11:30 14:47 17:27 RBC (3.80-5.40) m/uL Hgb (11.4-16.0) gm/dL Hct (34.0-46.0) % APTT 41.5 H (22.0-30.0) sec Sodium (137-145) mmol/L Chloride (98-107) mmol/L BUN (7-17) mg/dL Glucose (74-99) mg/dL POC Glucose (mg/dL) 107 H 160 H (75-99) mg/dL 01/24/18 01/24/18 01/25/18 Range/Units 20:08 22:00 02:45 RBC (3.80-5.40) m/uL Hgb (11.4-16.0) gm/dL Hct (34.0-46.0) % APTT 49.3 H (22.0-30.0) sec Sodium (137-145) mmol/L Chloride (98-107) mmol/L BUN (7-17) mg/dL Glucose (74-99) mg/dL POC Glucose (mg/dL) 111 H 137 H (75-99) mg/dL 01/25/1818 01/25/18 Range/Units 03:37 03:37 03:37 RBC 2.68 L (3.80-5.40) m/uL Hgb 7.8 L (11.4-16.0) gm/dL Hct 24.9 L (34.0-46.0) % APTT 46.5 H (22.0-30.0) sec Sodium 134 L (137-145) mmol/L Chloride 96 L (98-107) mmol/L BUN 19 H (7-17) mg/dL Glucose 112 H (74-99) mg/dL POC Glucose (mg/dL) (75-99) mg/dL 01/25/18 Range/Units 07:33 RBC (3.80-5.40) m/uL Hgb (11.4-16.0) gm/dL Hct (34.0-46.0) % APTT (22.0-30.0) sec Sodium (137-145) mmol/L Chloride (98-107) mmol/L BUN (7-17) mg/dL Glucose (74-99) mg/dL POC Glucose (mg/dL) 105 H (75-99) mg/dL Assessment and Plan Plan: Assessment: #1. Sick sinus syndrome, status post permanent pacemaker implantation, postop day 0 #2. Severe mitral stenosis and moderate to severe tricuspid regurgitation, status post mitral valve replacement tricuspid valve repair, postop day 7 #3. Postop blood loss anemia, an expected outcome of surgery #4. Postoperative respiratory failure, resolved #5. History of atrial fibrillation #6. History of CAD #7. History of heart failure #8. History of COPD #9. History of CVA/TIA #10 Hyperlipidemia by history #11. Hypertension by history #12. Previous history of myocardial infarction #13. DJD/degenerative disc disease #14. History of pneumonia #15. Previous history of urinary tract infection with sepsis Plan: Continue encouraging deep breathing and coughing, continue encouraging incentive spirometry use. Continue nebulized treatments, continue Symbicort. Today's chest x-ray shows mild pulmonary vascular congestion, and small pleural effusions with prominent bibasilar atelectasis. IV diuretics per CT surgery. Patient is status post implantation of a permanent pacemaker for sick sinus syndrome, doing well. Monitor vital signs, labs, EKG. Increase activity as tolerated. Will continue to follow I performed a history & physical examination of the patient and discussed their management with my nurse practitioner, Noemi Donald. I reviewed the nurse practitioner's note and agree with the documented findings and plan of care. Lung sounds are positive for a few bibasilar rhonchi and wheezes. The findings and the impression was discussed with the patient. I attest to the documentation by the nurse practitioner. Critical care time is over 30 minutes Time with Patient: Less than 30 <Katy Wiley - Last Filed: 01/25/18 10:53> Objective - Vital Signs Vital signs: Vital Signs Temp 98.6 F 01/25/18 04:00 Pulse 60 01/25/18 10:00 Resp 18 01/25/18 10:00 BP 123/63 01/25/18 10:00 Pulse Ox 92 L 01/25/18 10:00 Intake & Output 01/24/18 01/25/18 01/25/18 18:59 06:59 18:59 Intake Total 360.870 330.843 200 Output Total 800 600 15 Balance -439.130 -269.157 185 Weight 74.8 kg 74.8 kg Intake: IV 200 Intake, IV Titration 360.870 330.843 Amount Heparin Sod,Pork in 0.45% 283.679 NaCl 25,000 unit In 0.45 % NaCl 1 500ml.bag @ 12 UNITS/KG/HR 16.72 mls/hr IV .Q24H JUAN A Rx#: [id number] Heparin Sodium,Porcine/ 77.191 330.843 D5w Pmx 25,000 unit In Dextrose/Water 1 500ml. bag @ 12 UNITS/KG/HR 16. 72 mls/hr IV .Q24H JUAN A Rx #:[id number] Output: Urine 800 600 0 Estimated Blood Loss 15 Other: Voiding Method Bedside Commode Bedside Commode # Voids 1 ABP, PAP, CO, CI - Last Documented Arterial Blood Pressure 147/144 Pulmonary Artery Pressure 64/26 Cardiac Output 4.8 Cardiac Index 3.1 - Labs CBC & Chem 7: 01/25/18 03:37 01/25/18 03:37 Labs: Abnormal Lab Results - Last 24 Hours (Table) 01/24/18 01/24/18 01/24/18 Range/Units 11:30 14:47 17:27 RBC (3.80-5.40) m/uL Hgb (11.4-16.0) gm/dL Hct (34.0-46.0) % APTT 41.5 H (22.0-30.0) sec Sodium (137-145) mmol/L Chloride (98-107) mmol/L BUN (7-17) mg/dL Glucose (74-99) mg/dL POC Glucose (mg/dL) 107 H 160 H (75-99) mg/dL 01/24/18 01/24/18 01/25/18 Range/Units 20:08 22:00 02:45 RBC (3.80-5.40) m/uL Hgb (11.4-16.0) gm/dL Hct (34.0-46.0) % APTT 49.3 H (22.0-30.0) sec Sodium (137-145) mmol/L Chloride (98-107) mmol/L BUN (7-17) mg/dL Glucose (74-99) mg/dL POC Glucose (mg/dL) 111 H 137 H (75-99) mg/dL 01/25/18 01/25/18 01/25/18 Range/Units 03:37 03:37 03:37 RBC 2.68 L (3.80-5.40) m/uL Hgb 7.8 L (11.4-16.0) gm/dL Hct 24.9 L (34.0-46.0) % APTT 46.5 H (22.0-30.0) sec Sodium 134 L (137-145) mmol/L Chloride 96 L (98-107) mmol/L BUN 19 H (7-17) mg/dL Glucose 112 H (74-99) mg/dL POC Glucose (mg/dL) (75-99) mg/dL 01/25/18 Range/Units 07:33 RBC (3.80-5.40) m/uL Hgb (11.4-16.0) gm/dL Hct (34.0-46.0) % APTT (22.0-30.0) sec Sodium (137-145) mmol/L Chloride (98-107) mmol/L BUN (7-17) mg/dL Glucose (74-99) mg/dL POC Glucose (mg/dL) 105 H (75-99) mg/dL Assessment and Plan Plan: This is a joint evaluation that was done along with a nurse practitioner. The patient is postop day #7. The patient is post pacemaker insertion. Hemodynamically stable. Continue using incentive spirometer. Aggressive the medication will review with. Patient is receiving DuoNeb nebulized treatments around the clock, Symbicort as maintenance inhalers and overall pulmonate status is stable for now.
[2018-01-25 10:42] VITALS: BMI 26.6
[2018-01-25] MEDS ORDERED: FUROSEMIDE 10 MG/ML 4 ML VIAL IV STA (12:28)
[2018-01-25] MEDS: HEPARIN SODIUM,PORCINE/D5W PMX 25,000 UNIT in DEXTROSE/WATER 1 500ML.BAG IV SCH (13:05)
[2018-01-25] MEDS: LACTATED RINGERS 1,000 ML IV SCH (13:06)
[2018-01-25] MEDS: HEPARIN SODIUM,PORCINE 5,000 UNIT/ML 1 ML VIAL SQ SCH (15:32)
--- NOTE | 2018-01-25 16:47 | P.PN ---
Subjective 62-year-old female admitted for mitral valve replacement with a mechanical mitral valve. Patient is extubated clinically doing well. Comparing of some pain in the retrosternal area. 01/23/2018 Patient is still on 2 mics of the levo fed. No significant overnight events patient denied any complaints today 01/25/2018 patient had a pacemaker today for sick sinus syndrome. Owusu catheter was discontinued chest x-ray were all stable with some CHF and small bilateral pleural effusions. Constitutional: Denied any fatigue denied any fever. Cardio vascular: denied any palpitations Gastrointestinal denied any nausea vomiting Pulmonary: Denied any shortness of breath cough Neurologic denied any new focal deficits Objective - Vital Signs Vital signs: Vital Signs Temp 98.3 F 01/25/18 16:00 Pulse 61 01/25/18 16:12 Resp 11 L 01/25/18 16:00 BP 96/59 01/25/18 16:00 Pulse Ox 97 01/25/18 16:00 Intake & Output 01/24/18 01/25/18 01/25/18 18:59 06:59 18:59 Intake Total 360.870 330.843 200 Output Total 800 600 515 Balance -439.130 -269.157 -315 Weight 74.8 kg 74.8 kg Intake: IV 200 Intake, IV Titration 360.870 330.843 Amount Heparin Sod,Pork in 0.45% 283.679 NaCl 25,000 unit In 0.45 % NaCl 1 500ml.bag @ 12 UNITS/KG/HR 16.72 mls/hr IV .Q24H JUAN A Rx#: [id number] Heparin Sodium,Porcine/ 77.191 330.843 D5w Pmx 25,000 unit In Dextrose/Water 1 500ml. bag @ 12 UNITS/KG/HR 16. 72 mls/hr IV .Q24H JUAN A Rx #:[id number] Output: Urine 800 600 500 Estimated Blood Loss 15 Other: Voiding Method Bedside Commode Bedside Commode Bedside Commode # Voids 1 ABP, PAP, CO, CI - Last Documented Arterial Blood Pressure 147/144 Pulmonary Artery Pressure 64/26 Cardiac Output 4.8 Cardiac Index 3.1 - Exam PHYSICAL EXAMINATION: GENERAL: Patient is extubated alert oriented [address] Branch-See in place HEENT: Pupils are round and equally reacting to light. EOMI. No scleral icterus. No conjunctival pallor. Normocephalic, atraumatic. No pharyngeal erythema. No thyromegaly. CARDIOVASCULAR: S1 and S2 present. No murmurs, rubs, or gallops. PULMONARY: Chest is clear to auscultation, no wheezing or crackles. ABDOMEN: Soft, nontender, nondistended, normoactive bowel sounds. No palpable organomegaly. MUSCULOSKELETAL: No joint swelling or deformity. EXTREMITIES: No cyanosis, clubbing, or pedal edema. NEUROLOGICAL: Gross neurological examination did not reveal any focal deficits. SKIN: No rashes. - Labs CBC & Chem 7: 01/25/18 03:37 01/25/18 03:37 Labs: Abnormal Lab Results - Last 24 Hours (Table) 01/24/18 01/24/18 01/24/18 Range/Units 17:27 20:08 22:00 RBC (3.80-5.40) m/uL Hgb (11.4-16.0) gm/dL Hct (34.0-46.0) % APTT 49.3 H (22.0-30.0) sec Sodium (137-145) mmol/L Chloride (98-107) mmol/L BUN (7-17) mg/dL Glucose (74-99) mg/dL POC Glucose (mg/dL) 160 H 111 H (75-99) mg/dL 01/25/18 01/25/18 01/25/18 Range/Units 02:45 03:37 03:37 RBC 2.68 L (3.80-5.40) m/uL Hgb 7.8 L (11.4-16.0) gm/dL Hct 24.9 L (34.0-46.0) % APTT (22.0-30.0) sec Sodium 134 L (137-145) mmol/L Chloride 96 L (98-107) mmol/L BUN 19 H (7-17) mg/dL Glucose 112 H (74-99) mg/dL POC Glucose (mg/dL) 137 H (75-99) mg/dL 01/25/18 01/25/18 Range/Units 03:37 07:33 RBC (3.80-5.40) m/uL Hgb (11.4-16.0) gm/dL Hct (34.0-46.0) % APTT 46.5 H (22.0-30.0) sec Sodium (137-145) mmol/L Chloride (98-107) mmol/L BUN (7-17) mg/dL Glucose (74-99) mg/dL POC Glucose (mg/dL) 105 H (75-99) mg/dL Assessment and Plan Plan: 6 sinus syndrome: Patient had a pacemaker in place now and patient was started back on Coumadin. -Respiratory failure acute, hypoxic secondary to post cardiac surgery and mitral valve repair surgery postoperative day 6 -COPD patient is not wheezing at this point of time no further intervention at this point of time -Congestive heart failure chronic diastolic dysfunction without any acute exacerbation patient is on Lasix at this time -Mitral stenosis status post mitral valve replacement as mentioned above -Atrial fibrillation patient patient is not on any anti-coagulation at this time -CVA/TIA in the past -Hypertension
--- NOTE | 2018-01-25 17:05 | PN ---
PROGRESS NOTE This patient is status post mitral valve replacement. The patient underwent a permanent pacemaker placement today because of persistent bradycardia. The patient is sitting comfortably in the bed. The patient is afebrile. Blood pressure is 95/60 mmHg. First and second heart sounds are normal. Lungs are reveal diminished air entry at the bases. The patient's medications are reviewed. We will continue the current medications. Pacemaker is working normally. MMODL / IJN: [id number] /
[2018-01-25 17:12] LABS: Glucose,Whole Blood 96 mg/dL (75-99)
[2018-01-25] MEDS ORDERED: WARFARIN 5 MG TAB PO ONE (18:00)
[2018-01-25 20:23] LABS: Glucose,Whole Blood 107 mg/dL (75-99)
[2018-01-25] MEDS: SENNOSIDES-DOCUSATE SODIUM 1 EACH TAB PO SCH (22:22)
[2018-01-25] MEDS: ESCITALOPRAM 10 MG TAB PO SCH (22:22)
[2018-01-26] MEDS: HEPARIN SODIUM,PORCINE 5,000 UNIT/ML 1 ML VIAL SQ SCH ×3 (00:50→16:26)
[2018-01-26] MEDS: HYDROcodone/APAP 5-325MG 1 EACH TAB PO PRN ×4 (03:01→22:16)
[2018-01-26] MEDS: INSULIN ASPART 100 UNIT/ML 1 ML 10 ML VIAL SQ SCH ×5 (03:02→20:36)
[2018-01-26 03:04] LABS: Glucose,Whole Blood 107 mg/dL (75-99)
[2018-01-26 05:34] LABS: INR 1.1 (<1.2); Prothrombin Time 10.9 sec (9.0-12.0)
[2018-01-26 05:46] LABS: Anion Gap 14 mmol/L; Blood Urea Nitrogen 16 mg/dL (7-17); Calcium 8.3 mg/dL (8.4-10.2); Carbon Dioxide 25 mmol/L (22-30); Chloride 95 mmol/L (98-107); Glucose 98 mg/dL (74-99); Magnesium 2.1 mg/dL (1.6-2.3); Phosphorus 2.4 mg/dL (2.5-4.5); Sodium 134 mmol/L (137-145)
[2018-01-26 05:50] LABS: Basophils % (A) 0 %; Eosinophils # (A) 0.2 k/uL (0-0.7); Eosinophils % (A) 2 %; HCT 23.9 % (34.0-46.0); HGB 7.7 gm/dL (11.4-16.0); Lymphocytes # (A) 1.1 k/uL (1.0-4.8); Lymphocytes % (A) 11 %; MCH 29.7 pg (25.0-35.0); MCHC 32.3 g/dL (31.0-37.0); MCV 91.9 fL (80.0-100.0); Mean Platelet Volume 7.8; Monocytes # (A) 0.9 k/uL (0-1.0); Monocytes % (A) 9 %; Neutrophils # (A) 7.2 k/uL (1.3-7.7); Neutrophils % (A) 73 %; Platelet Count 362 k/uL (150-450); RDW 15.2 % (11.5-15.5); WBC 9.8 k/uL (3.8-10.6)
[2018-01-26 06:59] LABS: Glucose,Whole Blood 119 mg/dL (75-99)
[2018-01-26] MEDS ORDERED: SODIUM PHOSPHATE 10 MMOL in SODIUM CHLORIDE 0.9% 250 ML IVPB ONE (07:00)
[2018-01-26] MEDS ORDERED: FUROSEMIDE 10 MG/ML 4 ML VIAL IV STA (07:30)
[2018-01-26] MEDS ORDERED: fentaNYL (PF) 50 MCG/ML 2 ML AMP ONE (07:50)
[2018-01-26] MEDS ORDERED: MIDAZOLAM 2 MG/2 ML VIAL ONE (07:50)
[2018-01-26] MEDS ORDERED: PROPOFOL 10 MG/ML 20 ML VIAL IV ONE (07:50)
--- NOTE | 2018-01-26 07:57 | P.PN ---
Subjective Progress Note Date: 01/26/18 Principal diagnosis: Severe mitral valve stenosis, moderate to severe tricuspid valve regurgitation, long-standing persistent atrial fibrillation, COPD, history of CVA 2 with residual left-sided weakness, hypertension, hyperlipidemia, history of myocardial infarction, history of coronary artery disease, osteoarthritis, chronic low back pain, degenerative disc disease, history of ASD with closure in 2012, history of congestive heart failure, chronic tobacco dependence, history of pneumonia requiring intubation. POD #7 mitral valve replacement with a number 31-33 On-X mechanical mitral valve , tricuspid valve repair with a #32 mm MC 3 tricuspid ring, clip ligation of the left atrial appendage with a #32 x 45 mm atrial clip, intraoperative transesophageal echocardiogram. Postoperative sick sinus syndrome, an unexpected but potential outcome of surgery. POD #1 placement of permanent pacemaker. Patient is currently sitting up to the bedside chair. She is in no acute distress. She denies any complaints of shortness of breath or pain at this time. She is coughing and deep breathing and demonstrating good use on her incentive spirometry, achieving 500 mL on her incentive spirometry. Bedside telemetry is atrial flutter heart rate 60. Objective - Vital Signs Vital signs: Vital Signs Temp 98.8 F 01/26/18 04:00 Pulse 60 01/26/18 07:00 Resp 17 01/26/18 07:00 BP 108/48 01/26/18 07:00 Pulse Ox 96 01/26/18 07:00 Intake & Output 01/25/18 01/26/18 01/26/18 18:59 06:59 18:59 Intake Total 200 Output Total 515 1450 Balance -315 -1450 Weight 74.8 kg 74.8 kg Intake: IV 200 Output: Urine 500 1450 Estimated Blood Loss 15 Other: Voiding Method Bedside Commode Bedside Commode # Voids 1 0 ABP, PAP, CO, CI - Last Documented Arterial Blood Pressure 147/144 Pulmonary Artery Pressure 64/26 Cardiac Output 4.8 Cardiac Index 3.1 - Constitutional General appearance: Present: cooperative, no acute distress - Respiratory Details: Lung sounds with few scattered expiratory wheezes and a few scattered crackles to her bilateral bases. Respirations are symmetrical and nonlabored. Oxygen saturation are 94% on 3 L nasal cannula. She is achieving 500 mL on her incentive spirometry. - Cardiovascular Details: Regular rhythm and rate. S1 and S2 present, negative for S3, gallop or murmur. Sternum is stable. Bedside telemetry showing atrial flutter heart rate 60. Ventricular epicardial pacemaker wire intact and hooked up to backup pacemaker generator VVI 40. Heart hugger is in place and she is demonstrating appropriate use. Knee-high ROSALIE hose and sequential compression devices in place to her bilateral lower extremities. +2 edema to her bilateral lower extremities. - Gastrointestinal Gastrointestinal Comment(s): Abdomen is soft, nontender and nondistended. Active bowel sounds all 4 abdominal quadrants. Tolerating oral intake. Passing flatus. - Genitourinary Genitourinary Comment(s): Voiding clear yellow urine. 1050 mL output in the last 8 hours. - Integumentary Integumentary Comment(s): Skin is warm and dry. No clubbing or cyanosis present. Midline sternal incision clean dry and approximated. No redness or drainage present. Left subclavicular incision clean dry and approximated. No drainage or redness present. Dressing dry and intact. - Neurologic Neurologic: Present: CNII-XII intact - Musculoskeletal Musculoskeletal Comment(s): Shuffling gait. Musculoskeletal: Present: left sided weakness - Psychiatric Psychiatric: Present: A&O x's 3, appropriate affect, intact judgment & insight - Allied health notes Allied health notes reviewed: nursing - Labs CBC & Chem 7: 01/26/18 03:40 01/26/18 03:40 Labs: Abnormal Lab Results - Last 24 Hours (Table) 01/25/18 01/25/18 01/26/18 Range/Units 07:33 20:22 03:02 RBC (3.80-5.40) m/uL Hgb (11.4-16.0) gm/dL Hct (34.0-46.0) % Sodium (137-145) mmol/L Chloride (98-107) mmol/L POC Glucose (mg/dL) 105 H 107 H 107 H (75-99) mg/dL Calcium (8.4-10.2) mg/dL Phosphorus (2.5-4.5) mg/dL 01/26/18 01/26/18 01/26/18 Range/Units 03:40 03:40 06:58 RBC 2.60 L (3.80-5.40) m/uL Hgb 7.7 L (11.4-16.0) gm/dL Hct 23.9 L (34.0-46.0) % Sodium 134 L (137-145) mmol/L Chloride 95 L (98-107) mmol/L POC Glucose (mg/dL) 119 H (75-99) mg/dL Calcium 8.3 L (8.4-10.2) mg/dL Phosphorus 2.4 L (2.5-4.5) mg/dL - Imaging and Cardiology Chest x-ray: report reviewed, image reviewed Assessment and Plan (1) Persistent atrial fibrillation Current Visit: Yes Status: Acute Code(s): I48.1 - PERSISTENT ATRIAL FIBRILLATION SNOMED Code(s): 361862171 (2) Nicotine dependence Current Visit: Yes Status: Acute Code(s): F17.200 - NICOTINE DEPENDENCE, UNSPECIFIED, UNCOMPLICATED SNOMED Code(s): 82712405 (3) Hypertension Current Visit: Yes Status: Acute Code(s): I10 - ESSENTIAL (PRIMARY) HYPERTENSION SNOMED Code(s): 23456127 (4) Hyperlipidemia Current Visit: Yes Status: Acute Code(s): E78.5 - HYPERLIPIDEMIA, UNSPECIFIED SNOMED Code(s): 72588258 (5) CHF (congestive heart failure) Current Visit: No Status: Acute Code(s): I50.9 - HEART FAILURE, UNSPECIFIED SNOMED Code(s): 87796937 (6) COPD (chronic obstructive pulmonary disease) Current Visit: No Status: Acute Code(s): J44.9 - CHRONIC OBSTRUCTIVE PULMONARY DISEASE, UNSPECIFIED SNOMED Code(s): 72734010 (7) Diastolic CHF, acute on chronic Current Visit: No Status: Acute Code(s): I50.33 - ACUTE ON CHRONIC DIASTOLIC (CONGESTIVE) HEART FAILURE SNOMED Code(s): 141310243 (8) History of pneumonia Current Visit: No Status: Acute Code(s): Z87.01 - PERSONAL HISTORY OF PNEUMONIA (RECURRENT) SNOMED Code(s): 494414460 (9) Mitral stenosis Current Visit: No Status: Acute Code(s): I05.0 - RHEUMATIC MITRAL STENOSIS SNOMED Code(s): 92735614 (10) Status post patch closure of ASD Current Visit: No Status: Acute Code(s): Z98.890 - OTHER SPECIFIED POSTPROCEDURAL STATES; Z87.74 - PERSONAL HISTORY OF CONGENITAL MALFORM OF HEART AND CIRC SYS SNOMED Code(s): 880128564 (11) Chronic a-fib Current Visit: No Status: Chronic Code(s): I48.2 - CHRONIC ATRIAL FIBRILLATION SNOMED Code(s): 848604213 (12) History of CVA (cerebrovascular accident) Current Visit: No Status: Chronic Code(s): Z86.73 - PRSNL HX OF TIA (TIA), AND CEREB INFRC W/O RESID DEFICITS SNOMED Code(s): 013207421 (13) Mitral valve stenosis, severe Current Visit: No Status: Chronic Code(s): I05.0 - RHEUMATIC MITRAL STENOSIS SNOMED Code(s): 95855098 (14) Noncompliance Current Visit: No Status: Chronic Code(s): Z91.19 - PATIENT'S NONCOMPLIANCE W OTH MEDICAL TREATMENT AND REGIMEN SNOMED Code(s): 3281659 (15) SSS (sick sinus syndrome) Current Visit: Yes Status: Acute Code(s): I49.5 - SICK SINUS SYNDROME SNOMED Code(s): 61399748 Plan: 1. Continue aspirin, statin, and heparin subcu. We will start metoprolol tartrate 12.5 mg by mouth twice a day. 2. We will give Coumadin 1 mg by mouth today. We will check daily PT and INRs. 3. We will pull her epicardial pacemaker wires today. She'll be on bedrest for 1 hour post pacemaker wire removal. 4. Pulmonary management per Dr. Casarez's recommendations. Encourage use of her incentive spirometry every hour while awake. 5. Increase activity as tolerated. Out of bed for all meals. Physical therapy , occupational therapy and cardiac rehab following. 6. Blood sugar management and medical management per primary care service. 7. Lasix 40 mg IV every 12 hours 4 doses. 8. GI/DVT prophylaxis. 9. We will monitor daily labs and chest x-rays. 10. Reinforced the importance of smoking cessation and continue smoking cessation education. 11. We will transfer her to [address] [place] [address] for further monitoring and rehabilitation. 12. Consult Dr. Gutierrez for possible inpatient rehab placement. 13. More recommendations to follow based on the patient's clinical course. Time with Patient: Greater than 30
[2018-01-26] MEDS: IPRATROPIUM-ALBUTEROL 3 ML NEB INHALATION SCH ×4 (08:00→20:52)
[2018-01-26] MEDS: SYMBICORT 160-4.5 MCG INHALER INHALATION SCH ×2 (08:00→20:52)
[2018-01-26] MEDS: ASPIRIN 81 MG PO SCH (08:16)
[2018-01-26] MEDS: PANTOPRAZOLE 40 MG TABLET PO SCH (08:16)
[2018-01-26] MEDS: METOPROLOL TARTRATE 12.5 MG TAB PO SCH ×2 (08:16→20:28)
[2018-01-26] MEDS: ATORVASTATIN 40 MG TAB PO SCH (08:17)
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
--- NOTE | 2018-01-26 08:46 | XR ---
EXAMINATION TYPE: XR chest 1V portable DATE OF EXAM: 01/26/2018 Comparison: 01/25/2018 Clinical History: 62-year-old female status post CABG Findings: Interval placement of left anterior chest wall pacemaker generator with right ventricular lead. Media n sternotomy wires are present with post-CABG changes. There is a prosthetic aortic valve and additio nal annuloplasty ring. Diffuse interstitial prominence persists along with small pleural effusions an d bibasilar opacities. Relatively similar prior exam. Impression: 1. Continued mild CHF. New left-sided pacemaker generator with right ventricular lead. 2. Similar small pleural effusions with adjacent atelectasis and/or consolidation.
[2018-01-26 12:06] LABS: Glucose,Whole Blood 133 mg/dL (75-99)
[2018-01-26] MEDS: FERROUS SULFATE 325 MG TAB PO SCH (12:16)
[2018-01-26] MEDS: ASCORBIC ACID 500 MG TAB PO SCH (12:16)
--- NOTE | 2018-01-26 12:59 | P.PN ---
<Noemi Donald M - Last Filed: 01/26/18 12:53> Subjective Progress Note Date: 01/26/18 Principal diagnosis: Severe mitral valve stenosis, moderate to severe tricuspid valve regurgitation, status post mitral valve replacement and tricuspid valve repair, postop day 2 Consult dated 01/19/2018 62-year-old female postop day #1 status post mitral valve replacement and tricuspid valve repair. The surgery was done by Dr. Ibrahim. Currently, the patient's on O2 at 4 L by nasal cannula. Her IVs include norepinephrine at 6 mcg/m, insulin drip at 1.5 units per hour, lactated Ringer's at 50 mL an hour and Primacor 0.375 mcg/kg/m. The patient had excellent weaning parameters and blood gas and a positive cuff leak test and she was extubated last night. She has a history of atrial fibrillation valvular heart disease CAD heart failure COPD CVA hyperlipidemia hypertension myocardial infarction DJD and pneumonia. She also suffers from degenerative disc disease and chronic back pain and urinary incontinence and number of other major medical problems. Surgically, she status post thyroidectomy cholecystectomy heart catheterization with pretty procedures and tonsillectomy. On 01/20/2018 patient seen in follow-up in the intensive care unit. She is sitting up in a recliner, she is awake alert, denies any acute distress. On 6 L per high flow nasal cannula, with O2 sat at 98%. Maintenance IV fluid is LR at 50 ML per hour, Primacor at 0.125 mcg/kg/min, and insulin at 1 unit per hour. Patient is receiving 1 unit of PRBC, for a hemoglobin of 7.0, and patient was a bit hypotensive this morning with BP of 84/55, and his decision was made per cardiothoracic surgery to transfuse the patient. PA pressures are 75/30, cardiac output and index are 4.8 and 2.9 respectively. Patient is compliant with incentive spirometry and is able to achieve 1500 on it today. Patient has a ventricular epicardial wire, and is being paced at a rate of 70 BPM. Owusu catheter is in place, and the patient is making light zee colored urine, and the urine output has been ranging from 30-125 ML per hour. Patient is tolerating a full liquid diet, her pain is controlled. There are 2 mediastinal chest tubes draining serosanguineous output. Progress note dated 01/21/2018 This is a 62-year-old female who is postop day #3, status post mitral valve replacement and tricuspid valve repair. Thought to 6 L nasal cannula. The patient remains on norepinephrine at 4 mics per minute insulin drip at half a unit per hour and lactated Ringer's at 20 mL an hour. The patient seemed be doing relatively well. The surgery was done by Dr. Ibrahim. The patient has a history of atrial fibrillation, valvular heart disease, CAD, heart failure, COPD , CVA, hyperlipidemia, hypertension, myocardial infarction, DJD and pneumonia. She also suffers some degenerative disc disease and chronic back pain. The patient is doing well in general. She denies chest pain or chest discomfort. No shortness of breath or difficulty breathing. No coughing wheezing or phlegm production. No nausea vomiting or diarrhea. Progress note dated 01/22/2018 62-year-old female who is postop day #4 status post mitral valve replacement and tricuspid valve repair. She's currently on 2 L nasal cannula. Her norepinephrine has been weaned down to 2 mics per minute. She is getting lactated Ringer's at 20 mL an hour. Chest x-ray shows some bilateral atelectasis and small effusions. She otherwise is stable. Her surgery was done by Dr. Ibrahim. She has a history of atrial fibrillation, valvular heart disease, CAD, heart failure, COPD, CVA, hyperlipidemia, hypertension, myocardial infarction, DJD and pneumonia. She also suffers some degenerative disc disease and chronic back pain. All in all, the patient is doing relatively well. Other than the norepinephrine, hemodynamically, she is stable.. Progress note dated 01/24/2018 62-year-old female who is postop day #6, status post mitral valve replacement and tricuspid valve repair. She still on nasal O2 at 2 L. She has been weaned off of norepinephrine. She apparently is going to be getting a permanent pacemaker early this week. Her surgery was done by Dr. Ibrahim. She has a history of atrial fibrillation and valvular heart disease CAD heart failure COPD CVA hyperlipidemia hypertension myocardial infarction DJD and pneumonia. She also has degenerative disc disease and chronic back pain. All in all, doing reasonably well. The patient denies any difficulty breathing coughing wheezing or phlegm production. Hemodynamics have been stable. On 01/25/2018 patient seen in follow-up. Patient is status post permanent pacemaker insertion for sick sinus syndrome today on 01/25/[address] Ibrahim. Patient has returned to the room in the intensive care in stable condition, currently she is up in the recliner, left upper chest incision where the pacemaker was inserted is covered with a surgical dressing, incision site is soft, clean dry well approximated, no evidence of hematoma noted. Patient is being ventricular paced at a rate of 60 BPM, still has epicardial wires in place until tomorrow 01/26/2018. Patient denies any pain or shortness of breath. She is compliant with her incentive spirometry, achieving 500-750 on the today. Lung sounds are positive for some scattered rales and a few scattered wheezes. Patient had her chest tubes discontinued. Owsuu catheter has been discontinued and the patient is voiding. Patient is tolerating oral diet. Lab work has been reviewed, WBCs 9.8, hemoglobin is 7.8, sodium is 134, chloride is 96, BUN is 19, and creatinine 0.80. Today's chest x-ray shows overall stable findings, CHF, cardiomegaly with central vascular congestion and small bilateral pleural effusions. On 01/26/2018 patient seen in follow-up in intensive care unit. She is awake, alert, in no acute distress. Lungs sounds are positive for diffuse wheezes, and scattered rhonchi, today's chest x-ray shows diffuse interstitial prominence along with small pleural effusions and bibasilar opacities, related to congestive heart failure. Patient was given a dose of IV Lasix per CT surgery. She continues on nebulized bronchodilators, and Symbicort. Not producing any sputum. She is currently on 3 L per nasal cannula with O2 sat at 92%. She is hemodynamically stable, she is 100% AV paced on the monitor, status post permanent pacemaker implantation or sick sinus syndrome, postop day 1. Epicardial ventricular wire has been discontinued per CT surgery today. Patient is compliant with incentive spirometry, she is able to achieve 750-1000 ml on it today. She is maintaining negative fluid balance, she is in -1765 over the last 24 hours. Overall she is doing well, and is anticipated to be transferred out of the intensive care unit today. Objective - Vital Signs Vital signs: Vital Signs Temp 99.0 F 01/26/18 08:00 Pulse 69 01/26/18 12:00 Resp 21 01/26/18 12:00 BP 109/54 01/26/18 12:00 Pulse Ox 100 01/26/18 12:00 Intake & Output 01/25/18 01/26/18 01/26/18 18:59 06:59 18:59 Intake Total 200 490 Output Total 515 1450 500 Balance -315 -1450 -10 Weight 74.8 kg 74.8 kg Intake: IV 200 Intake, IV Titration 250 Amount Sodium Phosphate 10 mmol 250 In Sodium Chloride 0.9% 250 ml @ 125 mls/hr IVPB ONCE ONE Rx#:[id number] Oral 240 Output: Urine 500 1450 500 Estimated Blood Loss 15 Other: Voiding Method Bedside Commode Bedside Commode Bedside Commode # Voids 1 1 # Bowel Movements 1 ABP, PAP, CO, CI - Last Documented Arterial Blood Pressure 147/144 Pulmonary Artery Pressure 64/26 Cardiac Output 4.8 Cardiac Index 3.1 - Exam GENERAL EXAM: Alert, pleasant, 62-year-old white female, comfortable in no apparent distress. HEAD: Normocephalic/atraumatic. EYES: Normal reaction of pupils, equal size. Conjunctiva pink, sclera white. NOSE: Clear with pink turbinates. THROAT: No erythema or exudates. NECK: No masses, no JVD, no thyroid enlargement, no adenopathy. CHEST: No chest wall deformity. Symmetrical expansion. Midsternal incision is clean dry and intact, there has been interval change of mediastinal chest tube removal, patient has a left upper chest pacemaker insertion site incision, covered with surgical dressing, clean dry and intact, no signs of hematoma. Epicardial wires have been discontinued LUNGS: Equal air entry with some scattered rales, and a few scattered wheezes CVS: Regular rate and rhythm, normal S1 and S2, no gallops, no murmurs, no rubs ABDOMEN: Soft, nontender. No hepatosplenomegaly, normal bowel sounds, no guarding or rigidity. EXTREMITIES: No clubbing, no edema, no cyanosis, 2+ pulses and upper and lower extremities. Patient has SCDs on, and antiembolism stockings MUSCULOSKELETAL: Left-sided weakness from a previous CVA SPINE: No scoliosis or deformity SKIN: No rashes CENTRAL NERVOUS SYSTEM: Alert and oriented -3. No focal deficits, tone is normal in all 4 extremities. PSYCHIATRIC: Alert and oriented -3. Appropriate affect. Intact judgment and insight. - Labs CBC & Chem 7: 05/08/18 03:40 01/26/18 03:40 Labs: Abnormal Lab Results - Last 24 Hours (Table) 01/25/18 01/26/18 01/26/18 Range/Units 20:22 03:02 03:40 RBC 2.60 L (3.80-5.40) m/uL Hgb 7.7 L (11.4-16.0) gm/dL Hct 23.9 L (34.0-46.0) % Sodium (137-145) mmol/L Chloride (98-107) mmol/L POC Glucose (mg/dL) 107 H 107 H (75-99) mg/dL Calcium (8.4-10.2) mg/dL Phosphorus (2.5-4.5) mg/dL 01/26/18 01/26/18 01/26/18 Range/Units 03:40 06:58 12:04 RBC (3.80-5.40) m/uL Hgb (11.4-16.0) gm/dL Hct (34.0-46.0) % Sodium 134 L (137-145) mmol/L Chloride 95 L (98-107) mmol/L POC Glucose (mg/dL) 119 H 133 H (75-99) mg/dL Calcium 8.3 L (8.4-10.2) mg/dL Phosphorus 2.4 L (2.5-4.5) mg/dL Assessment and Plan Plan: Assessment: #1. Sick sinus syndrome, status post permanent pacemaker implantation, postop day 1 #2. Severe mitral stenosis and moderate to severe tricuspid regurgitation, status post mitral valve replacement tricuspid valve repair, postop day 8 #3. Postop blood loss anemia, an expected outcome of surgery #4. Postoperative respiratory failure, resolved #5. History of atrial fibrillation #6. History of CAD #7. History of heart failure #8. History of COPD #9. History of CVA/TIA #10 Hyperlipidemia by history #11. Hypertension by history #12. Previous history of myocardial infarction #13. DJD/degenerative disc disease #14. History of pneumonia #15. Previous history of urinary tract infection with sepsis Plan: Patient was given a dose of IV Lasix purchase CT surgery, today's chest x-ray shows persistent interstitial edema, small bilateral pleural effusions consistent with mild CHF. Continue encouraging incentive spirometry use, encourage ambulation. We'll continue with current plan of treatment, overall patient is doing well. Stable to transfer out of the intensive care unit today to a bed on selective care floor. Continue to follow I performed a history & physical examination of the patient and discussed their management with my nurse practitioner, Noemi Donald. I reviewed the nurse practitioner's note and agree with the documented findings and plan of care. Lung sounds are positive for a few bibasilar rhonchi and wheezes. The findings and the impression was discussed with the patient. I attest to the documentation by the nurse practitioner. Critical care time is over 30 minutes Time with Patient: Greater than 30 <Katy Wiley - Last Filed: 01/26/18 18:04> Objective - Vital Signs Vital signs: Vital Signs Temp 99.0 F 01/26/18 08:00 Pulse 69 01/26/18 16:31 Resp 21 01/26/18 12:00 BP 109/54 01/26/18 12:00 Pulse Ox 100 01/26/18 12:00 Intake & Output 01/25/18 01/26/18 01/26/18 18:59 06:59 18:59 Intake Total 200 610 Output Total 515 1450 1100 Balance -315 -1450 -490 Weight 74.8 kg 74.8 kg Intake: IV 200 Intake, IV Titration 250 Amount Sodium Phosphate 10 mmol 250 In Sodium Chloride 0.9% 250 ml @ 125 mls/hr IVPB ONCE ONE Rx#:[id number] Oral 360 Output: Urine 500 1450 1100 Estimated Blood Loss 15 Other: Voiding Method Bedside Commode Bedside Commode Bedside Commode # Voids 1 1 # Bowel Movements 1 ABP, PAP, CO, CI - Last Documented Arterial Blood Pressure 147/144 Pulmonary Artery Pressure 64/26 Cardiac Output 4.8 Cardiac Index 3.1 - Labs CBC & Chem 7: 01/26/18 03:40 01/26/18 03:40 Labs: Abnormal Lab Results - Last 24 Hours (Table) 01/25/18 01/26/18 01/26/18 Range/Units 20:22 03:02 03:40 RBC 2.60 L (3.80-5.40) m/uL Hgb 7.7 L (11.4-16.0) gm/dL Hct 23.9 L (34.0-46.0) % Sodium (137-145) mmol/L Chloride (98-107) mmol/L POC Glucose (mg/dL) 107 H 107 H (75-99) mg/dL Calcium (8.4-10.2) mg/dL Phosphorus (2.5-4.5) mg/dL 01/26/18 01/26/18 01/26/18 Range/Units 03:40 06:58 12:04 RBC (3.80-5.40) m/uL Hgb (11.4-16.0) gm/dL Hct (34.0-46.0) % Sodium 134 L (137-145) mmol/L Chloride 95 L (98-107) mmol/L POC Glucose (mg/dL) 119 H 133 H (75-99) mg/dL Calcium 8.3 L (8.4-10.2) mg/dL Phosphorus 2.4 L (2.5-4.5) mg/dL 01/26/18 Range/Units 16:52 RBC (3.80-5.40) m/uL Hgb (11.4-16.0) gm/dL Hct (34.0-46.0) % Sodium (137-145) mmol/L Chloride (98-107) mmol/L POC Glucose (mg/dL) 151 H (75-99) mg/dL Calcium (8.4-10.2) mg/dL Phosphorus (2.5-4.5) mg/dL Assessment and Plan Plan: This is a joint evaluation that was done along with a nurse practitioner. The patient was found to be microvascular congestion on today's chest x-ray. She was also found to be bronchospastic and wheezy. Agree on current Lasix IV. Monitor fluid balance. Incentive spirometer. Anticoagulation with warfarin was initiated. We'll continue to follow.
--- NOTE | 2018-01-26 16:18 | PN ---
PROGRESS NOTE This patient is status post a mitral valve replacement and permanent pacemaker. Patient is doing fairly well. She is sitting comfortably on the bed. Her respirations are not labored. Blood pressure is 109/54 mmHg. Heart rate is now 60-70 per minute, intermittent paced rhythm is noted. Lungs examination revealed a few scattered wheezes. The patient's chest x-ray does not show any evidence of significant fluid overload. We will continue the patient on the current medications. MMODL / IJN: [id number] /
[2018-01-26] MEDS: FUROSEMIDE 10 MG/ML 4 ML VIAL IV SCH (16:25)
[2018-01-26 16:54] LABS: Glucose,Whole Blood 151 mg/dL (75-99)
[2018-01-26] MEDS ORDERED: WARFARIN 1 MG TAB PO ONE (18:00)
[2018-01-26] MEDS: ESCITALOPRAM 10 MG TAB PO SCH (20:29)
[2018-01-26] MEDS: SENNOSIDES-DOCUSATE SODIUM 1 EACH TAB PO SCH (20:29)
[2018-01-26 20:37] LABS: Glucose,Whole Blood 102 mg/dL (75-99)
--- NOTE | 2018-01-26 22:06 | PN ---
PROGRESS NOTE DATE OF SERVICE: 01/26/2018. HISTORY: This 62-year-old woman was admitted for mitral valve replacement. She is being closely monitored. Patient is improving. No chest pain. No palpitations. Occasional cough is reported. EXAM: Alert and oriented. Pulse 69, blood pressure 97/50, respirations 17, temp is normal, pulse ox 94% on 3 L nasal cannula. HEENT: Normal. CARDIOVASCULAR: Breath sounds diminished in the bases. A few crackles. ABDOMEN: Soft, nontender. NERVOUS SYSTEM: No focal deficits. LABS: WBC 9.2, hemoglobin 7.2, sodium 134. ASSESSMENT: 1. Status post mitral valve replacement for mitral stenosis. 2. Sick sinus syndrome. 3. Chronic obstructive pulmonary disease. 4. History of congestive heart failure. 5. History of atrial fibrillation. 6. Cerebrovascular accident/transient ischemic attack. 7. History of hypertension. RECOMMENDATIONS AND DISCUSSION: Continue current management. Incentive spirometry. Increase ambulation. Closely follow with cardiothoracic surgery. Further recommendations to follow. MMODL / IJN: [id number] /
[2018-01-27] MEDS: HEPARIN SODIUM,PORCINE 5,000 UNIT/ML 1 ML VIAL SQ SCH ×3 (00:57→16:18)
[2018-01-27 03:04] LABS: Glucose,Whole Blood 98 mg/dL (75-99)
[2018-01-27] MEDS: INSULIN ASPART 100 UNIT/ML 1 ML 10 ML VIAL SQ SCH ×5 (03:55→22:44)
[2018-01-27] MEDS: HYDROcodone/APAP 5-325MG 1 EACH TAB PO PRN ×3 (04:17→22:38)
[2018-01-27] MEDS: FUROSEMIDE 10 MG/ML 4 ML VIAL IV SCH ×2 (04:17→16:19)
[2018-01-27 04:34] LABS: INR 1.4 (<1.2); Prothrombin Time 12.8 sec (9.0-12.0)
[2018-01-27 04:37] LABS: Basophils % (A) 1 %; Eosinophils # (A) 0.4 k/uL (0-0.7); Eosinophils % (A) 4 %; HCT 24.4 % (34.0-46.0); HGB 7.9 gm/dL (11.4-16.0); Hypochromasia Slight; Lymphocytes # (A) 1.5 k/uL (1.0-4.8); Lymphocytes % (A) 17 %; MCH 29.6 pg (25.0-35.0); MCHC 32.4 g/dL (31.0-37.0); MCV 91.2 fL (80.0-100.0); Mean Platelet Volume 8.2; Monocytes # (A) 0.8 k/uL (0-1.0); Monocytes % (A) 9 %; Neutrophils # (A) 5.7 k/uL (1.3-7.7); Neutrophils % (A) 67 %; Platelet Count 417 k/uL (150-450); RBC 2.68 m/uL (3.80-5.40); RDW 15.9 % (11.5-15.5); WBC 8.6 k/uL (3.8-10.6)
[2018-01-27 04:39] LABS: Anion Gap 10 mmol/L; Blood Urea Nitrogen 13 mg/dL (7-17); Calcium 8.6 mg/dL (8.4-10.2); Carbon Dioxide 31 mmol/L (22-30); Chloride 96 mmol/L (98-107); Glucose 89 mg/dL (74-99); Magnesium 2.1 mg/dL (1.6-2.3); Phosphorus 2.3 mg/dL (2.5-4.5); Potassium 3.8 mmol/L (3.5-5.1); Sodium 137 mmol/L (137-145)
[2018-01-27 05:30] VITALS: RESP 18
[2018-01-27] MEDS: PANTOPRAZOLE 40 MG TABLET PO SCH (07:13)
--- NOTE | 2018-01-27 07:25 | XR ---
EXAMINATION TYPE: XR chest 1V portable DATE OF EXAM: 01/27/2018 COMPARISON: 01/26/2018 HISTORY: Status post CABG. Shortness of breath. 01/26/2018 TECHNIQUE: Single frontal view of the chest is obtained. FINDINGS: Single ventricular lead left-sided cardiac device is unchanged in position with post CABG changes of the chest and cardiac valvular replacement. There are similar appearing trace layering ple ural effusions and right basilar airspace disease. Left midlung platelike atelectasis remains. Pulmon eliseo vascular congestion has resolved. There is osseous demineralization. IMPRESSION: 1. Interval resolution of the previously seen pulmonary vascular congestion. 2. Postoperative changes of the chest and unchanged trace layering pleural effusions with right basil ar airspace disease, likely atelectasis.
[2018-01-27] MEDS ORDERED: SODIUM PHOSPHATE 10 MMOL in SODIUM CHLORIDE 0.9% 250 ML IVPB ONE (07:51)
[2018-01-27] MEDS ORDERED: POTASSIUM CHLORIDE ER 20 MEQ TAB.ER PO SCH (08:00)
[2018-01-27] MEDS: ASPIRIN 81 MG PO SCH (09:01)
[2018-01-27] MEDS: FERROUS SULFATE 325 MG TAB PO SCH (09:01)
[2018-01-27] MEDS: ATORVASTATIN 40 MG TAB PO SCH (09:02)
--- NOTE | 2018-01-27 09:02 | P.PN ---
Subjective Progress Note Date: 01/27/18 Principal diagnosis: Severe mitral valve stenosis, moderate to severe tricuspid valve regurgitation, long-standing persistent atrial fibrillation, COPD, history of CVA 2 with residual left-sided weakness, hypertension, hyperlipidemia, history of myocardial infarction, history of coronary artery disease, osteoarthritis, chronic low back pain, degenerative disc disease, history of ASD with closure in 2012, history of congestive heart failure, chronic tobacco dependence, history of pneumonia requiring intubation. POD #8 mitral valve replacement with a number 31-33 On-X mechanical mitral valve , tricuspid valve repair with a #32 mm MC 3 tricuspid ring, clip ligation of the left atrial appendage with a #32 x 45 mm atrial clip, intraoperative transesophageal echocardiogram. Postoperative sick sinus syndrome, an unexpected but potential outcome of surgery. POD #2 placement of permanent pacemaker. Patient is currently sitting up to the bedside chair. She is in no acute distress. She denies any complaints of shortness of breath or pain at this time. She is coughing and deep breathing and demonstrating good use on her incentive spirometry, achieving 500 mL. remote telemetry is showing V paced rhythm with atrial flutter heart rate 70. Objective - Vital Signs Vital signs: Vital Signs Temp 97.1 F L 01/27/18 06:56 Pulse 70 01/27/18 06:56 Resp 18 01/27/18 06:56 BP 101/59 01/27/18 06:56 Pulse Ox 98 01/27/18 06:56 Intake & Output 01/26/18 01/27/18 01/27/18 18:59 06:59 18:59 Intake Total 610 240 Output Total 1700 1450 Balance -1090 -1450 240 Intake: Intake, IV Titration 250 Amount Sodium Phosphate 10 mmol 250 In Sodium Chloride 0.9% 250 ml @ 125 mls/hr IVPB ONCE ONE Rx#:[id number] Oral 360 240 Output: Urine 1700 1450 Other: Voiding Method Bedside Commode Bedside Commode Incontinent Incontinent # Voids 1 # Bowel Movements 1 ABP, PAP, CO, CI - Last Documented Arterial Blood Pressure 147/144 Pulmonary Artery Pressure 64/26 Cardiac Output 4.8 Cardiac Index 3.1 - Constitutional General appearance: Present: cooperative, no acute distress - Respiratory Details: Lung sounds with coarse rhonchi throughout, diminished her bilateral bases. Respirations are symmetrical and nonlabored. Oxygen saturation are 98% on 4 L nasal cannula. She is achieving 500 mL on her incentive spirometry. - Cardiovascular Details: Regular rhythm and rate. S1 and S2 present, negative for S3, gallop or murmur. Sternum is stable. Remote telemetry showing V paced rhythm with atrial flutter heart rate 70. Heart hugger is in place and she is demonstrating appropriate use. +2 edema present to her bilateral lower extremities. Knee- high ROSALIE hose and sequential compression devices in place to bilateral lower extremities. - Gastrointestinal Gastrointestinal Comment(s): Abdomen is soft, nontender and nondistended. Active bowel sounds all 4 abdominal quadrants. Tolerating oral intake. Bowel movement yesterday 2017. - Genitourinary Genitourinary Comment(s): Urine output adequate. Voiding clear yellow urine. One episode of incontinence this a.m. 1450 mL output in the last 8 hours. - Integumentary Integumentary Comment(s): Skin is warm and dry. No clubbing or cyanosis present. Midline sternal incision clean dry and approximated. No redness or drainage present. Dermabond dressing clean and dry. Left subclavicular incision clean dry and approximated. No drainage redness present. Dermabond dressing clean and dry. - Neurologic Neurologic: Present: CNII-XII intact - Musculoskeletal Musculoskeletal: Present: generalized weakness (Shuffling gait), left sided weakness - Psychiatric Psychiatric: Present: A&O x's 3, appropriate affect, intact judgment & insight - Allied health notes Allied health notes reviewed: nursing - Labs CBC & Chem 7: 01/27/18 03:39 01/27/18 03:39 Labs: Abnormal Lab Results - Last 24 Hours (Table) 01/26/18 01/26/18 01/26/18 Range/Units 12:04 16:52 20:35 RBC (3.80-5.40) m/uL Hgb (11.4-16.0) gm/dL Hct (34.0-46.0) % RDW (11.5-15.5) % PT (9.0-12.0) sec INR (<1.2) Chloride (98-107) mmol/L Carbon Dioxide (22-30) mmol/L POC Glucose (mg/dL) 133 H 151 H 102 H (75-99) mg/dL Phosphorus (2.5-4.5) mg/dL 01/27/18 01/27/18 01/27/18 Range/Units 03:39 03:39 03:39 RBC 2.68 L (3.80-5.40) m/uL Hgb 7.9 L (11.4-16.0) gm/dL Hct 24.4 L (34.0-46.0) % RDW 15.9 H (11.5-15.5) % PT 12.8 H (9.0-12.0) sec INR 1.4 H (<1.2) Chloride 96 L (98-107) mmol/L Carbon Dioxide 31 H (22-30) mmol/L POC Glucose (mg/dL) (75-99) mg/dL Phosphorus 2.3 L (2.5-4.5) mg/dL - Imaging and Cardiology Chest x-ray: report reviewed, image reviewed Assessment and Plan (1) Persistent atrial fibrillation Current Visit: Yes Status: Acute Code(s): I48.1 - PERSISTENT ATRIAL FIBRILLATION SNOMED Code(s): 472437909 (2) Nicotine dependence Current Visit: Yes Status: Acute Code(s): F17.200 - NICOTINE DEPENDENCE, UNSPECIFIED, UNCOMPLICATED SNOMED Code(s): 11566590 (3) Hypertension Current Visit: Yes Status: Acute Code(s): I10 - ESSENTIAL (PRIMARY) HYPERTENSION SNOMED Code(s): 94998356 (4) Hyperlipidemia Current Visit: Yes Status: Acute Code(s): E78.5 - HYPERLIPIDEMIA, UNSPECIFIED SNOMED Code(s): 85898377 (5) CHF (congestive heart failure) Current Visit: No Status: Acute Code(s): I50.9 - HEART FAILURE, UNSPECIFIED SNOMED Code(s): 58919704 (6) COPD (chronic obstructive pulmonary disease) Current Visit: No Status: Acute Code(s): J44.9 - CHRONIC OBSTRUCTIVE PULMONARY DISEASE, UNSPECIFIED SNOMED Code(s): 62150658 (7) Diastolic CHF, acute on chronic Current Visit: No Status: Acute Code(s): I50.33 - ACUTE ON CHRONIC DIASTOLIC (CONGESTIVE) HEART FAILURE SNOMED Code(s): 787539173 (8) History of pneumonia Current Visit: No Status: Acute Code(s): Z87.01 - PERSONAL HISTORY OF PNEUMONIA (RECURRENT) SNOMED Code(s): 772484227 (9) Mitral stenosis Current Visit: No Status: Acute Code(s): I05.0 - RHEUMATIC MITRAL STENOSIS SNOMED Code(s): 71244351 (10) Status post patch closure of ASD Current Visit: No Status: Acute Code(s): Z98.890 - OTHER SPECIFIED POSTPROCEDURAL STATES; Z87.74 - PERSONAL HISTORY OF CONGENITAL MALFORM OF HEART AND CIRC SYS SNOMED Code(s): 613121245 (11) Chronic a-fib Current Visit: No Status: Chronic Code(s): I48.2 - CHRONIC ATRIAL FIBRILLATION SNOMED Code(s): 866984881 (12) History of CVA (cerebrovascular accident) Current Visit: No Status: Chronic Code(s): Z86.73 - PRSNL HX OF TIA (TIA), AND CEREB INFRC W/O RESID DEFICITS SNOMED Code(s): 673441044 (13) Mitral valve stenosis, severe Current Visit: No Status: Chronic Code(s): I05.0 - RHEUMATIC MITRAL STENOSIS SNOMED Code(s): 87419247 (14) Noncompliance Current Visit: No Status: Chronic Code(s): Z91.19 - PATIENT'S NONCOMPLIANCE W OTH MEDICAL TREATMENT AND REGIMEN SNOMED Code(s): 7282895 (15) SSS (sick sinus syndrome) Current Visit: Yes Status: Acute Code(s): I49.5 - SICK SINUS SYNDROME SNOMED Code(s): 39985611 Plan: 1. Continue aspirin, statin, heparin subcu and beta tay. We will increase her metoprolol tartrate to 25 mg by mouth twice a day. 2. We will give Coumadin 2 mg by mouth today. We will check daily PT and INRs. Today's INR was 1.4. 3. Continue Lasix 40 mg IV as ordered. 4. Pulmonary management per Dr. Wiley's recommendations. Encourage use of her incentive spirometry every hour while awake. 5. Increase activity as tolerated. Out of bed for all meals. Physical therapy , occupational therapy and cardiac rehab following. 6. Blood sugar management and medical management per primary care service. 7. We will monitor daily labs and chest x-rays. 8. GI/DVT prophylaxis. 9. Reinforced the importance of smoking cessation and continue smoking cessation education. 10. Dr. Gutierrez's recommendations noted and appreciated. 11. More recommendations to follow based on the patient's clinical course. Anticipate discharge to inpatient rehab within the next 24 hours. Time with Patient: Greater than 30
[2018-01-27] MEDS: ASCORBIC ACID 500 MG TAB PO SCH (09:03)
[2018-01-27] MEDS: METOPROLOL TARTRATE 25 MG TAB PO SCH ×2 (09:05→22:40)
[2018-01-27] MEDS: SYMBICORT 160-4.5 MCG INHALER INHALATION SCH ×2 (09:10→21:01)
[2018-01-27] MEDS: IPRATROPIUM-ALBUTEROL 3 ML NEB INHALATION SCH ×4 (09:10→21:03)
[2018-01-27] MEDS: methylPREDNISolone SOD SUCCI 40 MG/ML 1 ML VIAL IV SCH ×2 (11:19→16:19)
[2018-01-27 11:57] LABS: Glucose,Whole Blood 151 mg/dL (75-99)
--- NOTE | 2018-01-27 13:28 | P.PN ---
Subjective Progress Note Date: 01/27/18 Principal diagnosis: Valvular heart disease, status post mitral valve replacement and tricuspid valve repair. 62-year-old female who is postop day #6, status post mitral valve replacement and tricuspid valve repair. She still on nasal O2 at 2 L. She has been weaned off of norepinephrine. She apparently is going to be getting a permanent pacemaker early this week. Her surgery was done by Dr. Ibrahim. She has a history of atrial fibrillation and valvular heart disease CAD heart failure COPD CVA hyperlipidemia hypertension myocardial infarction DJD and pneumonia. She also has degenerative disc disease and chronic back pain. All in all, doing reasonably well. The patient denies any difficulty breathing coughing wheezing or phlegm production. Hemodynamics have been stable. On 01/25/2018 patient seen in follow-up. Patient is status post permanent pacemaker insertion for sick sinus syndrome today on 01/25/[address] Ibrahim. Patient has returned to the room in the intensive care in stable condition, currently she is up in the recliner, left upper chest incision where the pacemaker was inserted is covered with a surgical dressing, incision site is soft, clean dry well approximated, no evidence of hematoma noted. Patient is being ventricular paced at a rate of 60 BPM, still has epicardial wires in place until tomorrow 01/26/2018. Patient denies any pain or shortness of breath. She is compliant with her incentive spirometry, achieving 500-750 on the today. Lung sounds are positive for some scattered rales and a few scattered wheezes. Patient had her chest tubes discontinued. Owusu catheter has been discontinued and the patient is voiding. Patient is tolerating oral diet. Lab work has been reviewed, WBCs 9.8, hemoglobin is 7.8, sodium is 134, chloride is 96, BUN is 19, and creatinine 0.80. Today's chest x-ray shows overall stable findings, CHF, cardiomegaly with central vascular congestion and small bilateral pleural effusions. On 01/26/2018 patient seen in follow-up in intensive care unit. She is awake, alert, in no acute distress. Lungs sounds are positive for diffuse wheezes, and scattered rhonchi, today's chest x-ray shows diffuse interstitial prominence along with small pleural effusions and bibasilar opacities, related to congestive heart failure. Patient was given a dose of IV Lasix per CT surgery. She continues on nebulized bronchodilators, and Symbicort. Not producing any sputum. She is currently on 3 L per nasal cannula with O2 sat at 92%. She is hemodynamically stable, she is 100% AV paced on the monitor, status post permanent pacemaker implantation or sick sinus syndrome, postop day 1. Epicardial ventricular wire has been discontinued per CT surgery today. Patient is compliant with incentive spirometry, she is able to achieve 750-1000 ml on it today. She is maintaining negative fluid balance, she is in -1765 over the last 24 hours. Overall she is doing well, and is anticipated to be transferred out of the intensive care unit today. The patient is seen again today 01/27/2018 in follow-up on the selective care unit. She is currently sitting up in bed. She is awake and alert in no acute distress. She denies any worsening shortness of breath, cough or congestion. She is requiring 4 L/m per nasal cannula to maintain O2 saturations in the 90s. She's been afebrile. White count 8.6. Hemoglobin 7.9. INR 1.4. Creatinine 0.70. She continues to diurese well currently and a -1450. Chest x-ray reveals interval resolution of previously seen pulmonary vascular congestion. Atelectasis in the lung bases. Is continued on Lasix 40 mg IV every 12 hours, DuoNeb inhalations and Symbicort. She is also utilizing the incentive spirometer currently pulling approximately 1 L. Objective - Vital Signs Vital signs: Vital Signs Temp 97.9 F 01/27/18 12:00 Pulse 118 H 01/27/18 12:13 Resp 18 01/27/18 12:00 BP 95/54 01/27/18 12:13 Pulse Ox 95 01/27/18 12:13 Intake & Output 01/26/18 01/27/18 01/27/18 18:59 06:59 18:59 Intake Total 610 480 Output Total 1700 1450 Balance -1090 -1450 480 Intake: Intake, IV Titration 250 Amount Sodium Phosphate 10 mmol 250 In Sodium Chloride 0.9% 250 ml @ 125 mls/hr IVPB ONCE ONE Rx#:[id number] Oral 360 480 Output: Urine 1700 1450 Other: Voiding Method Bedside Commode Bedside Commode Bedside Commode Incontinent Incontinent Incontinent # Voids 1 # Bowel Movements 1 ABP, PAP, CO, CI - Last Documented Arterial Blood Pressure 147/144 Pulmonary Artery Pressure 64/26 Cardiac Output 4.8 Cardiac Index 3.1 - Exam No acute distress, oriented 3. Nasal O2 in place. HEENT examination is grossly unremarkable. Mucous membranes are moist. No oral lesions. Neck supple. Full range of motion. No adenopathy thyromegaly or neck vein distention. Cardiovascular examination reveals regular rhythm rate. S1-S2 normal. No S3 or S4. No discernible murmur noted. Lungs reveal a few scattered rhonchi. Some crackles are noted at the bases. Breath sounds are equal bilaterally. There was no prolongation on forced maneuver.. Abdomen soft bowel sounds are heard. No masses or tenderness. Extremities are intact. No cyanosis clubbing or edema. Skin is without rash or lesion. Neurologic examination is brief but nonfocal. - Labs CBC & Chem 7: 01/27/18 03:39 01/27/18 03:39 Labs: Abnormal Lab Results - Last 24 Hours (Table) 01/26/18 01/26/18 01/27/18 Range/Units 16:52 20:35 03:39 RBC 2.68 L (3.80-5.40) m/uL Hgb 7.9 L (11.4-16.0) gm/dL Hct 24.4 L (34.0-46.0) % RDW 15.9 H (11.5-15.5) % PT (9.0-12.0) sec INR (<1.2) Chloride (98-107) mmol/L Carbon Dioxide (22-30) mmol/L POC Glucose (mg/dL) 151 H 102 H (75-99) mg/dL Phosphorus (2.5-4.5) mg/dL 01/27/18 01/27/18 01/27/18 Range/Units 03:39 03:39 11:49 RBC (3.80-5.40) m/uL Hgb (11.4-16.0) gm/dL Hct (34.0-46.0) % RDW (11.5-15.5) % PT 12.8 H (9.0-12.0) sec INR 1.4 H (<1.2) Chloride 96 L (98-107) mmol/L Carbon Dioxide 31 H (22-30) mmol/L POC Glucose (mg/dL) 151 H (75-99) mg/dL Phosphorus 2.3 L (2.5-4.5) mg/dL Assessment and Plan Assessment: Assessment Postop day #8, status post mitral valve replacement tricuspid valve repair Postoperative sick sinus syndrome requiring permanent pacemaker implantation. Postoperative day #2. History of atrial fibrillation History of CAD History of heart failure History of COPD History of CVA/TIA Hyperlipidemia by history Hypertension by history Previous history of myocardial infarction DJD/degenerative disc disease History of pneumonia Previous history of urinary tract infection with sepsis Plan: The patient was seen and evaluated by Dr. Wiley. Her chest x-ray and labs were reviewed. She is quite stable from the pulmonary standpoint. We'll continue with her current treatment plan. Continue to encourage increased use of the incentive spirometer and cough and deep breathing exercises. Increase her activity as tolerated. We'll continue to follow and make further recommendations based on her clinical status. The plan is for transfer to inpatient rehabilitation post discharge. I, the cosigning physician, performed a history & physical examination of the patient. Lungs sounds have crackles in the bilateral posterior bases. Maintaining good O2 saturations in the 90s on 4 L/m per nasal cannula. I discussed the assessment and plan of care with my nurse practitioner, Stacie Mohamud. I attest to the above note as dictated by her.
--- NOTE | 2018-01-27 15:00 | P.PN ---
Subjective Progress Note Date: 01/27/18 This is 62-year-old female who is status post mitral valve replacement and tricuspid valve repair. She was seen on the telemetry unit today, sitting up in the chair at bedside. She states that overall her breathing is stable, she continues to require 4 L of oxygen to maintain her oxygen saturations. She is reaching approximately 500 on her incentive spirometry is encouraged to continue the use of this. She has noted atelectasis and mild vascular congestion. to the lung bases on her chest x-ray. Objective - Vital Signs Vital signs: Vital Signs Temp 97.9 F 01/27/18 12:00 Pulse 72 01/27/18 13:39 Resp 18 01/27/18 12:00 BP 95/54 01/27/18 12:13 Pulse Ox 95 01/27/18 12:13 Intake & Output 01/26/18 01/27/18 01/27/18 18:59 06:59 18:59 Intake Total 610 480 Output Total 1700 1450 Balance -1090 -1450 480 Intake: Intake, IV Titration 250 Amount Sodium Phosphate 10 mmol 250 In Sodium Chloride 0.9% 250 ml @ 125 mls/hr IVPB ONCE ONE Rx#:[id number] Oral 360 480 Output: Urine 1700 1450 Other: Voiding Method Bedside Commode Bedside Commode Bedside Commode Incontinent Incontinent Incontinent # Voids 1 # Bowel Movements 1 ABP, PAP, CO, CI - Last Documented Arterial Blood Pressure 147/144 Pulmonary Artery Pressure 64/26 Cardiac Output 4.8 Cardiac Index 3.1 - Exam PHYSICAL EXAMINATION: HEENT: Head is atraumatic, normocephalic. Pupils equal, round. Neck is supple. There is no elevated jugular venous pressure. HEART EXAMINATION: Heart S1, S2 normal. No murmur or gallop heard. CHEST EXAMINATION: Lungs reveal scattered coarse rhonchi throughout with crackles to the bases bilaterally. ABDOMEN: Soft, nontender. Bowel sounds are heard. No organomegaly noted. EXTREMITIES: 2+ peripheral pulses with no evidence of peripheral edema and no calf tenderness noted. NEUROLOGIC patient is awake, alert and oriented -3. . - Labs CBC & Chem 7: 01/27/18 03:39 01/27/18 03:39 Labs: Abnormal Lab Results - Last 24 Hours (Table) 01/26/18 01/26/18 01/27/18 Range/Units 16:52 20:35 03:39 RBC 2.68 L (3.80-5.40) m/uL Hgb 7.9 L (11.4-16.0) gm/dL Hct 24.4 L (34.0-46.0) % RDW 15.9 H (11.5-15.5) % PT (9.0-12.0) sec INR (<1.2) Chloride (98-107) mmol/L Carbon Dioxide (22-30) mmol/L POC Glucose (mg/dL) 151 H 102 H (75-99) mg/dL Phosphorus (2.5-4.5) mg/dL 01/27/18 01/27/18 01/27/18 Range/Units 03:39 03:39 11:49 RBC (3.80-5.40) m/uL Hgb (11.4-16.0) gm/dL Hct (34.0-46.0) % RDW (11.5-15.5) % PT 12.8 H (9.0-12.0) sec INR 1.4 H (<1.2) Chloride 96 L (98-107) mmol/L Carbon Dioxide 31 H (22-30) mmol/L POC Glucose (mg/dL) 151 H (75-99) mg/dL Phosphorus 2.3 L (2.5-4.5) mg/dL Assessment and Plan Plan: Assessment and plan #1 Status post mitral valve replacement and tricuspid valve repair #2 postoperative sick sinus syndrome or crying permanent pacemaker implantation #3 paroxysmal atrial fibrillation #4 history of coronary artery disease #5 prior TIA #6 hypertension #7 hyperlipidemia Plan Patient's current medications have been reviewed, we will continue with her current meds. She has been encouraged regarding the continued use of her incentive spirometry. We will continue to follow. DNP note has been reviewed, I agree with a documented findings and plan of care. Patient was seen and examined.
[2018-01-27 16:25] LABS: Glucose,Whole Blood 183 mg/dL (75-99)
--- NOTE | 2018-01-27 17:34 | PN ---
PROGRESS NOTE DATE OF SERVICE: 01/27/2018. INTERVAL HISTORY: This 62-year-old woman who was admitted after right total hip replacement is improved significantly. Occasional cough is reported. No chest pain. No palpitations. No fever. PHYSICAL EXAM: Alert and oriented times three. Pulse is 72. Blood pressure 95/54, respirations 18, temperature is normal. Pulse ox 97%. Temperature 97.9, pulse ox 97% on 4 L. HEENT is conjunctivae normal. Oral mucosa moist. Neck is no jugular venous distention. No carotid bruit. No lymph node enlargement. Cardiovascular system: S1, S2. Respiratory: Breath sounds diminished in the bases. A few scattered rhonchi and crackles. ABDOMEN: Soft, nontender. Legs: No edema and no cyanosis. Central nervous system: No focal deficits. LABS: Chest x-ray interval resolution of the pulmonary vascular congestion, postoperative changes. Other labs are noted. ASSESSMENT: 1. Status post mitral valve replacement for severe mitral stenosis. 2. Sick sinus syndrome. 3. Chronic obstructive pulmonary disease. 4. History of congestive heart failure. 5. History of atrial fibrillation. 6. History of cerebrovascular accident, transient ischemic attack. 7. History of hypertension. RECOMMENDATIONS AND DISCUSSION: Continue current management and symptomatic treatment. Otherwise, at this time, we will monitor the patient closely and continue with bronchodilators and incentive spirometry. Closely follow with cardiothoracic surgery and Cardiology and pulmonology. Further recommendations to follow. BILL / FATOUMATA: [id number] /
[2018-01-27] MEDS ORDERED: WARFARIN 2 MG TAB PO ONE (18:00)
[2018-01-27 20:16] LABS: Glucose,Whole Blood 171 mg/dL (75-99)
[2018-01-27] MEDS ORDERED: TEMAZEPAM 15 MG CAP PO SCH (21:00)
[2018-01-27] MEDS: ESCITALOPRAM 10 MG TAB PO SCH (22:39)
[2018-01-27] MEDS: SENNOSIDES-DOCUSATE SODIUM 1 EACH TAB PO SCH (22:43)
[2018-01-28] MEDS: HEPARIN SODIUM,PORCINE 5,000 UNIT/ML 1 ML VIAL SQ SCH ×2 (00:15→08:54)
[2018-01-28] MEDS: methylPREDNISolone SOD SUCCI 40 MG/ML 1 ML VIAL IV SCH ×2 (00:15→08:54)
[2018-01-28 06:05] LABS: Glucose,Whole Blood 141 mg/dL (75-99)
[2018-01-28 06:19] LABS: Anisocytosis Slight; Basophils % (A) 0 %; Eosinophils % (A) 0 %; HGB 7.8 gm/dL (11.4-16.0); Hypochromasia Slight; Lymphocytes # (A) 0.9 k/uL (1.0-4.8); Lymphocytes % (A) 8 %; MCH 29.2 pg (25.0-35.0); MCHC 32.3 g/dL (31.0-37.0); MCV 90.3 fL (80.0-100.0); Mean Platelet Volume 7.4; Monocytes # (A) 0.6 k/uL (0-1.0); Monocytes % (A) 6 %; Neutrophils % (A) 84 %; Platelet Count 474 k/uL (150-450); Poikilocytosis Slight; RBC 2.66 m/uL (3.80-5.40); RDW 16.1 % (11.5-15.5); WBC 10.7 k/uL (3.8-10.6)
[2018-01-28 06:28] LABS: INR 1.7 (<1.2); Prothrombin Time 15.4 sec (9.0-12.0)
[2018-01-28 06:37] LABS: Anion Gap 10 mmol/L; Blood Urea Nitrogen 16 mg/dL (7-17); Calcium 8.6 mg/dL (8.4-10.2); Carbon Dioxide 33 mmol/L (22-30); Chloride 96 mmol/L (98-107); Glucose 126 mg/dL (74-99); Sodium 139 mmol/L (137-145)
[2018-01-28] MEDS: INSULIN ASPART 100 UNIT/ML 1 ML 10 ML VIAL SQ SCH ×3 (06:54→11:48)
[2018-01-28] MEDS: PANTOPRAZOLE 40 MG TABLET PO SCH (06:55)
--- NOTE | 2018-01-28 07:11 | XR ---
EXAMINATION TYPE: XR chest 1V portable DATE OF EXAM: 01/28/2018 CLINICAL HISTORY: Post open cardiac surgery progress study. TECHNIQUE: Single AP portable upright view of the chest is obtained. COMPARISON: Chest x-ray from one day earlier and older studies FINDINGS: Sternal wires with metallic aortic valve, metallic mitral valvular ring, and left-sided ca rdiac closure device are all redemonstrated. Persistent cardiomegaly with small bilateral pleural eff usions. There is chronic parenchymal change with patchy bibasilar atelectasis and/or infiltrate. Ther e is no new suspicious focal airspace opacity or pneumothorax seen bilaterally. Osseous structures ar e intact. IMPRESSION: Overall stable findings, cardiomegaly with small bilateral pleural effusions and associ ated bibasilar atelectasis and/or infiltrate all felt redemonstrated.
[2018-01-28] MEDS ORDERED: FUROSEMIDE 10 MG/ML 4 ML VIAL IV STA (07:58)
[2018-01-28] MEDS: SYMBICORT 160-4.5 MCG INHALER INHALATION SCH (08:36)
[2018-01-28] MEDS: IPRATROPIUM-ALBUTEROL 3 ML NEB INHALATION SCH ×3 (08:36→16:16)
[2018-01-28] MEDS: ASPIRIN 81 MG PO SCH (08:55)
[2018-01-28] MEDS: ASCORBIC ACID 500 MG TAB PO SCH (08:55)
[2018-01-28] MEDS: ATORVASTATIN 40 MG TAB PO SCH (08:55)
[2018-01-28] MEDS: METOPROLOL TARTRATE 25 MG TAB PO SCH (08:55)
[2018-01-28] MEDS: FERROUS SULFATE 325 MG TAB PO SCH (08:56)
[2018-01-28 11:48] LABS: Glucose,Whole Blood 130 mg/dL (75-99)
[2018-01-28] MEDS ORDERED: FERROUS SULFATE 325 MG TAB PO SCH (12:15)
[2018-01-28 13:15] VITALS: BP 118/70; PULSE 69; TEMP 97.3
--- NOTE | 2018-01-28 13:42 | P.PN ---
Subjective Progress Note Date: 01/28/18 This is 62-year-old female who is status post mitral valve replacement and tricuspid valve repair. She was seen on the telemetry unit today, sitting up in the chair at bedside. She states that overall her breathing is stable, she continues to require 4 L of oxygen to maintain her oxygen saturations. She is reaching approximately 500 on her incentive spirometry is encouraged to continue the use of this. She has noted atelectasis and mild vascular congestion. to the lung bases on her chest x-ray. 01/28/2018 Patient seen and examined this morning, doing much better on her incentive spirometry today. Hemodynamically stable. INR today is 1.7. We will give her 5 mg of Coumadin today, on discharge she will go home on with 2 mg of Coumadin daily, we will check a PT/INR every three days. DNP note has been reviewed, I agree with a documented findings and plan of care. Patient was seen and examined. Objective - Vital Signs Vital signs: Vital Signs Temp 97.3 F L 01/28/18 12:00 Pulse 69 01/28/18 12:00 Resp 18 01/28/18 12:00 BP 118/70 01/28/18 12:00 Pulse Ox 96 01/28/18 12:00 Intake & Output 01/27/18 01/28/18 01/28/18 18:59 06:59 18:59 Intake Total 480 720 Output Total 2 Balance 480 -2 720 Weight 70.8 kg Intake: Oral 480 720 Output: Urine 2 Other: Voiding Method Bedside Commode Toilet Toilet Incontinent Incontinent Incontinent # Voids 6 1 2 ABP, PAP, CO, CI - Last Documented Arterial Blood Pressure 147/144 Pulmonary Artery Pressure 64/26 Cardiac Output 4.8 Cardiac Index 3.1 - Labs CBC & Chem 7: 01/28/18 06:01 01/28/18 06:01 Labs: Abnormal Lab Results - Last 24 Hours (Table) 01/27/18 01/27/18 01/28/18 Range/Units 16:23 20:15 06:01 WBC 10.7 H (3.8-10.6) k/uL RBC 2.66 L (3.80-5.40) m/uL Hgb 7.8 L (11.4-16.0) gm/dL Hct 24.0 L (34.0-46.0) % RDW 16.1 H (11.5-15.5) % Plt Count 474 H (150-450) k/uL Neutrophils # 9.0 H (1.3-7.7) k/uL Lymphocytes # 0.9 L (1.0-4.8) k/uL PT (9.0-12.0) sec INR (<1.2) Chloride (98-107) mmol/L Carbon Dioxide (22-30) mmol/L Glucose (74-99) mg/dL POC Glucose (mg/dL) 183 H 171 H (75-99) mg/dL 01/28/18 01/28/18 01/28/18 Range/Units 06:01 06:01 06:03 WBC (3.8-10.6) k/uL RBC (3.80-5.40) m/uL Hgb (11.4-16.0) gm/dL Hct (34.0-46.0) % RDW (11.5-15.5) % Plt Count (150-450) k/uL Neutrophils # (1.3-7.7) k/uL Lymphocytes # (1.0-4.8) k/uL PT 15.4 H (9.0-12.0) sec INR 1.7 H (<1.2) Chloride 96 L (98-107) mmol/L Carbon Dioxide 33 H (22-30) mmol/L Glucose 126 H (74-99) mg/dL POC Glucose (mg/dL) 141 H (75-99) mg/dL 01/28/18 Range/Units 11:43 WBC (3.8-10.6) k/uL RBC (3.80-5.40) m/uL Hgb (11.4-16.0) gm/dL Hct (34.0-46.0) % RDW (11.5-15.5) % Plt Count (150-450) k/uL Neutrophils # (1.3-7.7) k/uL Lymphocytes # (1.0-4.8) k/uL PT (9.0-12.0) sec INR (<1.2) Chloride (98-107) mmol/L Carbon Dioxide (22-30) mmol/L Glucose (74-99) mg/dL POC Glucose (mg/dL) 130 H (75-99) mg/dL
--- NOTE | 2018-01-28 13:42 | P.DS ---
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 surgery Do you want consulting provider notified?: Yes Placement Type Exists?: Yes Consult Physician Routine Consulting Provider: Margarita Nichole Consult Reason/Comments: 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 Consult: post cardiac surgery Do you want consulting provider notified?: Yes Placement Type Exists?: Yes 01/26/18 06:50 Consult Physician Routine Consulting Provider: Igor Gutierrez Consult Reason/Comments: Eval for inpatient rehab Do you want consulting provider notified?: Yes Primary care physician: Stated None - Discharge Diagnosis(es) (1) Persistent atrial fibrillation Current Visit: Yes Status: Acute (2) Nicotine dependence Current Visit: Yes Status: Acute (3) Hypertension Current Visit: Yes Status: Acute (4) Hyperlipidemia Current Visit: Yes Status: Acute (5) CHF (congestive heart failure) Current Visit: No Status: Acute (6) COPD (chronic obstructive pulmonary disease) Current Visit: No Status: Acute (7) Diastolic CHF, acute on chronic Current Visit: No Status: Acute (8) History of pneumonia Current Visit: No Status: Acute (9) Mitral stenosis Current Visit: No Status: Acute (10) Status post patch closure of ASD Current Visit: No Status: Acute (11) Chronic a-fib Current Visit: No Status: Chronic (12) History of CVA (cerebrovascular accident) Current Visit: No Status: Chronic (13) Mitral valve stenosis, severe Current Visit: No Status: Chronic (14) Noncompliance Current Visit: No Status: Chronic (15) SSS (sick sinus syndrome) Current Visit: Yes Status: Acute Hospital Course: FINAL DIAGNOSIS: 1. Severe mitral valve stenosis 2. Moderate to severe tricuspid valve regurgitation 3. Long-standing chronic persistent atrial fibrillation 4. Chronic obstructive pulmonary disease 5. 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 Hypertension 7. Hyperlipidemia 8. History of myocardial infarction 9. History of coronary artery disease 10. Osteoarthritis 11. Chronic low back pain, degenerative disc disease 12. History of ASD closure in 2012 13. History of congestive heart failure 14. Chronic tobacco dependence 15. History of pneumonia requiring intubation 16. Postoperative acute blood loss anemia, and expected outcome of surgery 17. No postoperative respiratory failure, patient was extubated 7 hours in the postoperative period. 18. Postoperative sick sinus syndrome, an unexpected but potential outcome of surgery PRINCIPAL PROCEDURE: 1. Elective mitral valve replacement with a number 31-33 On-X mechanical mitral valve, tricuspid valve repair with a #32 mm MC 3 tricuspid ring. 2. Clip ligation of the left atrial appendage with a #32 x 45 mm Atriclip . 3. Intraoperative transesophageal echocardiogram 4. Placement of permanent pacemaker HISTORY OF PRESENT ILLNESS: This is a 62-year-old female patient who is followed by Dr. Raphael Egan on an outpatient basis. Chest past medical history significant for mitral valve stenosis, mitral valve valvuloplasty in 2012, history of ASD closure, chronic persistent atrial fibrillation on home Coumadin for anticoagulation, history of cerebrovascular accident 2 with some residual left-sided weakness, hypertension, hyperlipidemia, history of myocardial infarction, chronic tobacco dependence, history of pneumonia requiring intubation, noncompliance, osteoarthritis, history of congestive heart failure, and history of previous urinary tract infection with sepsis. Recently, the patient has had complaints of progressive shortness of breath with a productive cough and episodes of chest pain. She has a known history of severe mitral valve stenosis and was followed by Dr[facility] BRODIE [facility]. Subsequently due to her increase in shortness of breath she underwent a 2-D echocardiogram in June 2017 which demonstrated severe mitral valve regurgitation with a peak gradient of 28.46 mmHg and a mean gradient of 15.21 mmHg. A 2-D echocardiogram also showed severe tricuspid valve regurgitation and an overall left ventricular systolic function to be normal with an ejection fraction between 55 and 60%. Subsequently for further workup and evaluation she was referred to Dr. Ibrahim from cardiothoracic surgery for recommendations on possible surgical intervention. HOSPITAL COURSE: The patient was admitted to the hospital and after obtaining consent was taken to the operating room where Dr. Dominic Ibrahim performed an elective mitral valve replacement with a number 31-33 On-X mechanical mitral valve, tricuspid valve repair with a #32 mm MC 3 tricuspid ring, clip ligation of her left atrial appendage with a #32 x 45 mm Atriclip and an intraoperative transesophageal echocardiogram. She was subsequently transferred to the intensive care unit where she was recovered, monitored hemodynamically, and where she progressed to cardiac rehabilitation phase 1. She was extubated, all her lines, tubes and supportive drips were discontinued when appropriate and she was transferred to [address] [place] [address] for further monitoring and rehabilitation. In the postoperative period the patient had sick sinus syndrome , an unexpected but potential outcome of surgery. She subsequently underwent a permanent pacemaker placement completed by Dr. Dominic Ibrahim. Her oxygen was titrated down, she continued to work with physical and occupational therapy and was ready to be discharged to inpatient rehab a [facility] on postop day #9. She has received written and verbal instructions regarding her medications, activity restrictions, signs and symptoms requiring physician notification and her follow-up appointments. COMPLICATIONS: Postoperative period was complicated by sick sinus syndrome, an unexpected but potential outcome of surgery which was treated accordingly. CONSULTATIONS: 1.Dr. BRODIE Nichole for cardiology management. 2. Dr. Casarez for pulmonary and ventilator management. 3. Dr. Baumann for medical management. 4. Dr. Gutierrez for rehab management. DISCHARGE INSTRUCTIONS: 1. No driving for 4 weeks, or until physician gives their ok. 2. The patient should sleep in their own bed, no medical bed needed. 3. Stairs are not an issue. If the bedroom is upstairs, it is advised that the patient go up at night and down in the morning for the first week. Go slowly, using handrail and take 1 step at a time. 4. ROSALIE hose are to be worn for 30 days or until physician discontinues. 5. Heart hugger is to be worn 100% of the time until physician discontinues.( except when showering) 6. No lifting, pushing, or pulling more than 10 pounds for 12 weeks. The physician will advise of any restriction changes. 7. The patient is expected to continue the prescribed walking program. 8. Continue pain control per as needed orders. 9. Continue with incentive spirometry and splinting/heart hugger until otherwise directed by the physician. 10. Must shower daily using liquid antibacterial soap and a separate white washcloth for each individual incision. 11. Routine sternal incision care, no ointments, lotions or powders on the incisions. 12. Please notify surgeon/nurse practitioner for temperature greater than 101F or purulent drainage from incisions 13. Prescriptions for first 30 days given per cardiac surgery service. After 30 days, all prescription refills obtained through cardiology/primary care physician. 14. A red arm and has been placed on this patient it should be worn for 30 days post surgery and will be removed by the cardiothoracic surgeons. If an ER visit is necessary, please make sure the number on the red arm band is called. REHAB NURSING SERVICES TO PROVIDE: RN SKILLED HOME CARE SERVICES FOR POST-OP SURGICAL PATIENTS WITH THE FOLLOWING: Coronary Artery Bypass Surgery (CABG), Mitral Valve Replacement/ Repair ( MVR), Aortic Valve Replacement/Repair (AVR) RN TO CONTINUE EDUCATION FROM ``ROAD TO A HEALTH HEART PATIENT EDUCATION MANUAL" (GIVEN TO PATIENT IN THE HOSPITAL) MEDICATION RECONCILIATION WITH EDUCATION NEEDED ON FIRST HOME VISIT EMPHASIZE IMPORTANCE OF WEARING BREAST SUPPORT/HEART HUGGER ENCOURAGE USE OF INCENTIVE SPIROMETER 10 X EVERY HOUR WHILE AWAKE ENCOURAGE UTILIZATION OF LOWER EXTREMITY COMPRESSION STOCKINGS/ROSALIE HOSE and ELEVATE LEGS ABOVE LEVEL OF HEART WHILE AT REST. ENCOURAGE AMBULATION 3-5x/day INCREASING TOLERATES, WHILE AVOID EXTREMES IN TEMPERATURE LABORATORY: CBC, CMP TO BE DRAWN ON THE THIRD DAY HOME 01/31/2018 (RAN STAT) FAX RESULTS TO [phone]. PT and INRs to be drawn on 01/29/2018 than every 3 days thereafter with PT and INR results called to Dr. BRODIE Nichole's office at [phone] for Coumadin dosing. The goal INR for this patient will be between 2.5 and 3.0 INR. TELEHEALTH PARAMETERS: WEIGHT: NOTIFY MD OF WEIGHT GAIN OF 2 LBS IN 24 HOURS OR 5 LBS IN ONE WEEK HR: NOTIFY MD OF HR <55 BPM OR HR>100 BPM BP: NOTIFY MD IF BP <90/55 OR BP>140/100 O2 SAT: NOTIFY MD IF PO2<93% ON ROOM AIR SEND TELEHEALTH REPORT TO CHIEF LIBRARIAN CIRCULATION DEPARTMENT AND CARDIOVASCULAR SURGEON THE FIRST WEEK OF CARE AND THEN BI-WEEKLY. PLEASE ADDITIONALLY COMMUNICATE ANY ABNORMALS AND NEW FINDINGS TO THE SURGEONS OFFICE. Plan - Discharge Summary Discharge Rx Participant: Yes New Discharge Prescriptions: New Ascorbic Acid [Vitamin C] 500 mg PO DAILY@1200 tab Aspirin 81 mg PO DAILY chew Atorvastatin [Lipitor] 40 mg PO DAILY tab Bisacodyl [Dulcolax] 10 mg RECTAL DAILY PRN supp PRN Reason: Constipation Budesonide-Formot 160-4.5 Mcg [Symbicort 160-4.5 Mcg Inhaler] 2 puff INHALATION RT-BID puff Escitalopram [Lexapro] 10 mg PO HS tab Ferrous Sulfate [Iron (65 MG Elemental)] 325 mg PO BID-W/MEALS tab Insulin Aspart [NovoLOG (formulary)] 0 unit SQ ACHS vial Metoprolol Tartrate [Lopressor] 25 mg PO BID tab Pantoprazole [Protonix] 40 mg PO AC-BRKFST tablet.dr Dorantes-Docusate Sodium [Senokot-S] 2 each PO HS tab Continue Loratadine [Claritin] 10 mg PO DAILY Furosemide [Lasix] 40 mg PO DAILY Ipratropium-Albuterol Nebulize [Duoneb 0.5 mg-3 mg/3 ml Soln] 3 ml INHALATION RT-QID #120 ampul.neb Oxybutynin Xl [Ditropan XL] 5 mg PO DAILY Alendronate Sodium [Fosamax] 70 mg PO DAVIS Acetaminophen Tab [Tylenol] 500 mg PO Q6HR PRN tab PRN Reason: Fever and/ or Mild Pain Albuterol Inhaler [Ventolin Hfa Inhaler] 1 - 2 puff INHALATION RT-BID Changed Warfarin [Coumadin] 2 mg PO HS #0 tab Discontinued Digoxin [Lanoxin] 125 mcg PO DAILY Budesonide-Formot 160-4.5 Mcg [Symbicort 160-4.5 Mcg Inhaler] 2 puff INHALATION RT-BID #1 inh Pantoprazole Sodium [Protonix] 40 mg PO QAM Metoprolol Tartrate [Lopressor] 25 mg PO DAILY Escitalopram [Lexapro] 10 mg PO HS Ondansetron Odt [Zofran Odt] 8 mg PO Q12HR PRN PRN Reason: Nausea clonazePAM [Klonopin ODT Wafer] 0.25 mg PO BID Mupirocin 2% Nasal Oint [Bactroban 2% Nasal Oint] 1 applic NASAL BID Aspirin EC [Ecotrin Low Dose] 324 mg PO ONCE Discharge Medication List Loratadine [Claritin] 10 mg PO DAILY 05/22/17 [History] Furosemide [Lasix] 40 mg PO DAILY 09/01/17 [History] Ipratropium-Albuterol Nebulize [Duoneb 0.5 mg-3 mg/3 ml Soln] 3 ml INHALATION RT -QID #120 ampul.neb 09/06/17 [Rx] Alendronate Sodium [Fosamax] 70 mg PO DAVIS 09/17/17 [History] Oxybutynin Xl [Ditropan XL] 5 mg PO DAILY 09/17/17 [History] Acetaminophen Tab [Tylenol] 500 mg PO Q6HR PRN tab 09/22/17 [Rx] Albuterol Inhaler [Ventolin Hfa Inhaler] 1 - 2 puff INHALATION RT-BID 01/13/18 [ History] Ascorbic Acid [Vitamin C] 500 mg PO DAILY@1200 tab 01/28/18 [Rx] Aspirin 81 mg PO DAILY chew 01/28/18 [Rx] Atorvastatin [Lipitor] 40 mg PO DAILY tab 01/28/18 [Rx] Bisacodyl [Dulcolax] 10 mg RECTAL DAILY PRN supp 01/28/18 [Rx] Budesonide-Formot 160-4.5 Mcg [Symbicort 160-4.5 Mcg Inhaler] 2 puff INHALATION RT-BID puff 01/28/18 [Rx] Escitalopram [Lexapro] 10 mg PO HS tab 01/28/18 [Rx] Ferrous Sulfate [Iron (65 MG Elemental)] 325 mg PO BID-W/MEALS tab 01/28/18 [Rx ] Insulin Aspart [NovoLOG (formulary)] 0 unit SQ ACHS vial 01/28/18 [Rx] Metoprolol Tartrate [Lopressor] 25 mg PO BID tab 01/28/18 [Rx] Pantoprazole [Protonix] 40 mg PO AC-BRKFST tablet. 01/28/18 [Rx] Sennosides-Docusate Sodium [Senokot-S] 2 each PO HS tab 01/28/18 [Rx] Warfarin [Coumadin] 2 mg PO HS #0 tab 01/28/18 [Rx] Follow up Appointment(s)/Referral(s): Raphael Egan MD [STAFF PHYSICIAN] - 02/05/18 10:40 am () Margarita Nichole MD [STAFF PHYSICIAN] - 1 Week (Spoke with Nathaly at [facility] and Dr. Nichole's office will call with a follow-up appointment.) Vick Casarez DO [Doctor of Osteopathic Medicine] - 1 Week Dominic Ibrahim MD [STAFF PHYSICIAN] - 02/23/18 2:00 pm Ambulatory/Diagnostic Orders: Complete Blood Count w/diff [LAB.AMB] Time Frame: 01/31/18, Facility: [facility], Location: Laboratory [facility] Comprehensive Metabolic Panel [LAB.AMB] Time Frame: 01/31/18, Facility: [facility], Location: Laboratory [facility] Prothrombin Time INR [LAB.AMB] Time Frame: 01/29/18, Facility: [facility], Location: Laboratory [facility] Activity/Diet/Wound Care/Special Instructions: DISCHARGE INSTRUCTIONS: 1. No driving for 4 weeks, or until physician gives their ok. 2. The patient should sleep in their own bed, no medical bed needed. 3. Stairs are not an issue. If the bedroom is upstairs, it is advised that the patient go up at night and down in the morning for the first week. Go slowly, using handrail and take 1 step at a time. 4. ROSALIE hose are to be worn for 30 days or until physician discontinues. 5. Heart hugger is to be worn 100% of the time until physician discontinues.( except when showering) 6. No lifting, pushing, or pulling more than 10 pounds for 12 weeks. The physician will advise of any restriction changes. 7. The patient is expected to continue the prescribed walking program. 8. Continue pain control per as needed orders. 9. Continue with incentive spirometry and splinting/heart hugger until otherwise directed by the physician. 10. Must shower daily using liquid antibacterial soap and a separate white washcloth for each individual incision. 11. Routine sternal incision care, no ointments, lotions or powders on the incisions. 12. Please notify surgeon/nurse practitioner for temperature greater than 101F or purulent drainage from incisions 13. Prescriptions for first 30 days given per cardiac surgery service. After 30 days, all prescription refills obtained through cardiology/primary care physician. 14. A red arm and has been placed on this patient it should be worn for 30 days post surgery and will be removed by the cardiothoracic surgeons. If an ER visit is necessary, please make sure the number on the red arm band is called. REHAB NURSING SERVICES TO PROVIDE: RN SKILLED HOME CARE SERVICES FOR POST-OP SURGICAL PATIENTS WITH THE FOLLOWING: Coronary Artery Bypass Surgery (CABG), Mitral Valve Replacement/ Repair ( MVR), Aortic Valve Replacement/Repair (AVR) RN TO CONTINUE EDUCATION FROM ``ROAD TO A HEALTH HEART PATIENT EDUCATION MANUAL" (GIVEN TO PATIENT IN THE HOSPITAL) MEDICATION RECONCILIATION WITH EDUCATION NEEDED ON FIRST HOME VISIT EMPHASIZE IMPORTANCE OF WEARING BREAST SUPPORT/HEART HUGGER ENCOURAGE USE OF INCENTIVE SPIROMETER 10 X EVERY HOUR WHILE AWAKE ENCOURAGE UTILIZATION OF LOWER EXTREMITY COMPRESSION STOCKINGS/ROSALIE HOSE and ELEVATE LEGS ABOVE LEVEL OF HEART WHILE AT REST. ENCOURAGE AMBULATION 3-5x/day INCREASING TOLERATES, WHILE AVOID EXTREMES IN TEMPERATURE LABORATORY: CBC, CMP TO BE DRAWN ON THE THIRD DAY HOME 01/31/2018 (RAN STAT) FAX RESULTS TO [phone]. PT and INRs to be drawn on 01/29/2018 than every 3 days thereafter with PT and INR results called to Dr. BRODIE Nichole's office at for Coumadin dosing. The goal INR for this patient will be between 2.5 and 3.0 INR. TELEHEALTH PARAMETERS: WEIGHT: NOTIFY MD OF WEIGHT GAIN OF 2 LBS IN 24 HOURS OR 5 LBS IN ONE WEEK HR: NOTIFY MD OF HR <55 BPM OR HR>100 BPM BP: NOTIFY MD IF BP <90/55 OR BP>140/100 O2 SAT: NOTIFY MD IF PO2<93% ON ROOM AIR SEND TELEHEALTH REPORT TO CHIEF LIBRARIAN CIRCULATION DEPARTMENT AND CARDIOVASCULAR SURGEON THE FIRST WEEK OF CARE AND THEN BI-WEEKLY. PLEASE ADDITIONALLY COMMUNICATE ANY ABNORMALS AND NEW FINDINGS TO THE SURGEONS OFFICE. Discharge Disposition: TRANSFER TO SNF/ECF
[2018-01-28] MEDS: HYDROcodone/APAP 5-325MG 1 EACH TAB PO PRN (13:57)
--- NOTE | 2018-01-28 13:57 | P.PN ---
Subjective Progress Note Date: 01/28/18 Principal diagnosis: Severe mitral valve stenosis, moderate to severe tricuspid valve regurgitation, status post mitral valve replacement and tricuspid valve repair, postop day 2 Consult dated 01/19/2018 62-year-old female postop day #1 status post mitral valve replacement and tricuspid valve repair. The surgery was done by Dr. Ibrahim. Currently, the patient's on O2 at 4 L by nasal cannula. Her IVs include norepinephrine at 6 mcg/m, insulin drip at 1.5 units per hour, lactated Ringer's at 50 mL an hour and Primacor 0.375 mcg/kg/m. The patient had excellent weaning parameters and blood gas and a positive cuff leak test and she was extubated last night. She has a history of atrial fibrillation valvular heart disease CAD heart failure COPD CVA hyperlipidemia hypertension myocardial infarction DJD and pneumonia. She also suffers from degenerative disc disease and chronic back pain and urinary incontinence and number of other major medical problems. Surgically, she status post thyroidectomy cholecystectomy heart catheterization with pretty procedures and tonsillectomy. On 01/20/2018 patient seen in follow-up in the intensive care unit. She is sitting up in a recliner, she is awake alert, denies any acute distress. On 6 L per high flow nasal cannula, with O2 sat at 98%. Maintenance IV fluid is LR at 50 ML per hour, Primacor at 0.125 mcg/kg/min, and insulin at 1 unit per hour. Patient is receiving 1 unit of PRBC, for a hemoglobin of 7.0, and patient was a bit hypotensive this morning with BP of 84/55, and his decision was made per cardiothoracic surgery to transfuse the patient. PA pressures are 75/30, cardiac output and index are 4.8 and 2.9 respectively. Patient is compliant with incentive spirometry and is able to achieve 1500 on it today. Patient has a ventricular epicardial wire, and is being paced at a rate of 70 BPM. Owusu catheter is in place, and the patient is making light zee colored urine, and the urine output has been ranging from 30-125 ML per hour. Patient is tolerating a full liquid diet, her pain is controlled. There are 2 mediastinal chest tubes draining serosanguineous output. Progress note dated 01/21/2018 This is a 62-year-old female who is postop day #3, status post mitral valve replacement and tricuspid valve repair. Thought to 6 L nasal cannula. The patient remains on norepinephrine at 4 mics per minute insulin drip at half a unit per hour and lactated Ringer's at 20 mL an hour. The patient seemed be doing relatively well. The surgery was done by Dr. Ibrahim. The patient has a history of atrial fibrillation, valvular heart disease, CAD, heart failure, COPD , CVA, hyperlipidemia, hypertension, myocardial infarction, DJD and pneumonia. She also suffers some degenerative disc disease and chronic back pain. The patient is doing well in general. She denies chest pain or chest discomfort. No shortness of breath or difficulty breathing. No coughing wheezing or phlegm production. No nausea vomiting or diarrhea. Progress note dated 01/22/2018 62-year-old female who is postop day #4 status post mitral valve replacement and tricuspid valve repair. She's currently on 2 L nasal cannula. Her norepinephrine has been weaned down to 2 mics per minute. She is getting lactated Ringer's at 20 mL an hour. Chest x-ray shows some bilateral atelectasis and small effusions. She otherwise is stable. Her surgery was done by Dr. Ibrahim. She has a history of atrial fibrillation, valvular heart disease, CAD, heart failure, COPD, CVA, hyperlipidemia, hypertension, myocardial infarction, DJD and pneumonia. She also suffers some degenerative disc disease and chronic back pain. All in all, the patient is doing relatively well. Other than the norepinephrine, hemodynamically, she is stable.. Progress note dated 01/24/2018 62-year-old female who is postop day #6, status post mitral valve replacement and tricuspid valve repair. She still on nasal O2 at 2 L. She has been weaned off of norepinephrine. She apparently is going to be getting a permanent pacemaker early this week. Her surgery was done by Dr. Ibrahim. She has a history of atrial fibrillation and valvular heart disease CAD heart failure COPD CVA hyperlipidemia hypertension myocardial infarction DJD and pneumonia. She also has degenerative disc disease and chronic back pain. All in all, doing reasonably well. The patient denies any difficulty breathing coughing wheezing or phlegm production. Hemodynamics have been stable. On 01/25/2018 patient seen in follow-up. Patient is status post permanent pacemaker insertion for sick sinus syndrome today on 01/25/[address] Ibrahim. Patient has returned to the room in the intensive care in stable condition, currently she is up in the recliner, left upper chest incision where the pacemaker was inserted is covered with a surgical dressing, incision site is soft, clean dry well approximated, no evidence of hematoma noted. Patient is being ventricular paced at a rate of 60 BPM, still has epicardial wires in place until tomorrow 01/26/2018. Patient denies any pain or shortness of breath. She is compliant with her incentive spirometry, achieving 500-750 on the today. Lung sounds are positive for some scattered rales and a few scattered wheezes. Patient had her chest tubes discontinued. Owusu catheter has been discontinued and the patient is voiding. Patient is tolerating oral diet. Lab work has been reviewed, WBCs 9.8, hemoglobin is 7.8, sodium is 134, chloride is 96, BUN is 19, and creatinine 0.80. Today's chest x-ray shows overall stable findings, CHF, cardiomegaly with central vascular congestion and small bilateral pleural effusions. On 01/26/2018 patient seen in follow-up in intensive care unit. She is awake, alert, in no acute distress. Lungs sounds are positive for diffuse wheezes, and scattered rhonchi, today's chest x-ray shows diffuse interstitial prominence along with small pleural effusions and bibasilar opacities, related to congestive heart failure. Patient was given a dose of IV Lasix per CT surgery. She continues on nebulized bronchodilators, and Symbicort. Not producing any sputum. She is currently on 3 L per nasal cannula with O2 sat at 92%. She is hemodynamically stable, she is 100% AV paced on the monitor, status post permanent pacemaker implantation or sick sinus syndrome, postop day 1. Epicardial ventricular wire has been discontinued per CT surgery today. Patient is compliant with incentive spirometry, she is able to achieve 750-1000 ml on it today. She is maintaining negative fluid balance, she is in -1765 over the last 24 hours. Overall she is doing well, and is anticipated to be transferred out of the intensive care unit today. The patient is seen again today 01/27/2018 in follow-up on the selective care unit. She is currently sitting up in bed. She is awake and alert in no acute distress. She denies any worsening shortness of breath, cough or congestion. She is requiring 4 L/m per nasal cannula to maintain O2 saturations in the 90s. She's been afebrile. White count 8.6. Hemoglobin 7.9. INR 1.4. Creatinine 0.70. She continues to diurese well currently and a -1450. Chest x-ray reveals interval resolution of previously seen pulmonary vascular congestion. Atelectasis in the lung bases. Is continued on Lasix 40 mg IV every 12 hours, DuoNeb inhalations and Symbicort. She is also utilizing the incentive spirometer currently pulling approximately 1 L. On 01/28/2018 she seen in follow-up on selective care unit. Up in the chair, in no acute distress, currently on 2 L per nasal cannula with O2 sat 96%. Denies worsening dyspnea, patient has been ambulating in the hallway, and tolerating activity well. Today's exam there is complete resolution of wheezing , early a few scattered rales at the bases. She has responded well to a few doses of IV steroids. She did receive another dose of IV Lasix per CT surgery, and she continues on bronchodilators and Symbicort. Progressing well, and is anticipated to transfer to the [facility] rehab today. Chest x-ray shows overall stable findings, cardiomegaly with small bilateral pleural effusions and associated bibasilar atelectasis. From pulmonary standpoint patient is stable for discharge to the [facility] rehab today Objective - Vital Signs Vital signs: Vital Signs Temp 97.3 F L 01/28/18 12:00 Pulse 69 01/28/18 12:00 Resp 18 01/28/18 12:00 BP 118/70 01/28/18 12:00 Pulse Ox 96 01/28/18 12:00 Intake & Output 01/27/18 01/28/18 01/28/18 18:59 06:59 18:59 Intake Total 480 720 Output Total 2 Balance 480 -2 720 Weight 70.8 kg Intake: Oral 480 720 Output: Urine 2 Other: Voiding Method Bedside Commode Toilet Toilet Incontinent Incontinent Incontinent # Voids 6 1 2 ABP, PAP, CO, CI - Last Documented Arterial Blood Pressure 147/144 Pulmonary Artery Pressure 64/26 Cardiac Output 4.8 Cardiac Index 3.1 - Exam GENERAL EXAM: Alert, pleasant, 62-year-old white female, comfortable in no apparent distress. HEAD: Normocephalic/atraumatic. EYES: Normal reaction of pupils, equal size. Conjunctiva pink, sclera white. NOSE: Clear with pink turbinates. THROAT: No erythema or exudates. NECK: No masses, no JVD, no thyroid enlargement, no adenopathy. CHEST: No chest wall deformity. Symmetrical expansion. Midsternal incision is clean dry and intact, there has been interval change of mediastinal chest tube removal, patient has a left upper chest pacemaker insertion site incision, covered with surgical dressing, clean dry and intact, no signs of hematoma. Epicardial wires have been discontinued LUNGS: Equal air entry with some scattered rales, no wheezing noted on today's exam CVS: Regular rate and rhythm, normal S1 and S2, no gallops, no murmurs, no rubs ABDOMEN: Soft, nontender. No hepatosplenomegaly, normal bowel sounds, no guarding or rigidity. EXTREMITIES: No clubbing, no edema, no cyanosis, 2+ pulses and upper and lower extremities. Patient has SCDs on, and antiembolism stockings MUSCULOSKELETAL: Left-sided weakness from a previous CVA SPINE: No scoliosis or deformity SKIN: No rashes CENTRAL NERVOUS SYSTEM: Alert and oriented -3. No focal deficits, tone is normal in all 4 extremities. PSYCHIATRIC: Alert and oriented -3. Appropriate affect. Intact judgment and insight. - Labs CBC & Chem 7: 01/28/18 06:01 01/28/18 06:01 Labs: Abnormal Lab Results - Last 24 Hours (Table) 01/27/18 01/27/18 01/28/18 Range/Units 16:23 20:15 06:01 WBC 10.7 H (3.8-10.6) k/uL RBC 2.66 L (3.80-5.40) m/uL Hgb 7.8 L (11.4-16.0) gm/dL Hct 24.0 L (34.0-46.0) % RDW 16.1 H (11.5-15.5) % Plt Count 474 H (150-450) k/uL Neutrophils # 9.0 H (1.3-7.7) k/uL Lymphocytes # 0.9 L (1.0-4.8) k/uL PT (9.0-12.0) sec INR (<1.2) Chloride (98-107) mmol/L Carbon Dioxide (22-30) mmol/L Glucose (74-99) mg/dL POC Glucose (mg/dL) 183 H 171 H (75-99) mg/dL 01/28/18 01/28/18 01/28/18 Range/Units 06:01 06:01 06:03 WBC (3.8-10.6) k/uL RBC (3.80-5.40) m/uL Hgb (11.4-16.0) gm/dL Hct (34.0-46.0) % RDW (11.5-15.5) % Plt Count (150-450) k/uL Neutrophils # (1.3-7.7) k/uL Lymphocytes # (1.0-4.8) k/uL PT 15.4 H (9.0-12.0) sec INR 1.7 H (<1.2) Chloride 96 L (98-107) mmol/L Carbon Dioxide 33 H (22-30) mmol/L Glucose 126 H (74-99) mg/dL POC Glucose (mg/dL) 141 H (75-99) mg/dL 01/28/18 Range/Units 11:43 WBC (3.8-10.6) k/uL RBC (3.80-5.40) m/uL Hgb (11.4-16.0) gm/dL Hct (34.0-46.0) % RDW (11.5-15.5) % Plt Count (150-450) k/uL Neutrophils # (1.3-7.7) k/uL Lymphocytes # (1.0-4.8) k/uL PT (9.0-12.0) sec INR (<1.2) Chloride (98-107) mmol/L Carbon Dioxide (22-30) mmol/L Glucose (74-99) mg/dL POC Glucose (mg/dL) 130 H (75-99) mg/dL Assessment and Plan Plan: Assessment: #1. Sick sinus syndrome, status post permanent pacemaker implantation, postop day 3 #2. Severe mitral stenosis and moderate to severe tricuspid regurgitation, status post mitral valve replacement tricuspid valve repair, postop day 9 #3. Postop blood loss anemia, an expected outcome of surgery #4. Routine postoperative ventilator management #5. History of atrial fibrillation #6. History of CAD #7. History of heart failure #8. History of COPD #9. History of CVA/TIA #10 Hyperlipidemia by history #11. Hypertension by history #12. Previous history of myocardial infarction #13. DJD/degenerative disc disease #14. History of pneumonia #15. Previous history of urinary tract infection with sepsis Plan: Patient continues to improve, was given another dose of IV Lasix, chest x-ray shows chronic findings of cardiomegaly, and small bilateral pleural effusions, CHF. Clinically patient is improving, compliant with her incentive spirometry, she has been ambulating, tolerating activity well. No wheezing on today's exam , patient responded well to a few doses of IV Solu-Medrol. Denies on nebulized bronchodilators, Symbicort. From pulmonary standpoint patient is stable for discharge to the [facility] rehab today. Follow up in the office with Dr. Casarez in 1 week I performed a history & physical examination of the patient and discussed their management with my nurse practitioner, Noemi Donald. I reviewed the nurse practitioner's note and agree with the documented findings and plan of care. Lung sounds are positive for a few bibasilar rales. The findings and the impression was discussed with the patient. I attest to the documentation by the nurse practitioner. Time with Patient: Less than 30
--- NOTE | 2018-01-28 17:26 | PN ---
PROGRESS NOTE DATE OF SERVICE: 01/28/2018. INTERVAL HISTORY: This 62-year-old woman who was admitted after mitral valve replacement for severe mitral stenosis is being closely monitored. No chest pain. No palpitations. No fever. Inpatient rehab for is being considered. No chest pain, no palpitations. PHYSICAL EXAM: Alert and oriented x3. Pulse 69, blood pressure 118/70, respiration 18, temperature 97.3, pulse ox 96% on 2 L. HEENT: Conjunctivae normal. Oral mucosa moist. NECK: No jugular venous distention. No carotid bruit. No lymph node enlargement. CARDIOVASCULAR: S1, S2. No S3, no S4. RESPIRATORY: Breath sounds diminished in the bases. A few scattered rhonchi. ABDOMEN: Soft. NERVOUS SYSTEM: No focal deficits. LABS: Noted. ASSESSMENT: 1. Status post mitral valve replacement for severe mitral stenosis. 2. Sick sinus syndrome. 3. Chronic obstructive pulmonary disease. 4. History of congestive heart failure. 5. History atrial fibrillation. 6. Cerebrovascular accident, transient ischemic attack. 7. History hypertension. RECOMMENDATIONS AND DISCUSSION: I recommend to continue current medications, continue to monitor. Symptomatic treatment. Otherwise at this time, I would recommend incentive spirometer, bronchodilators. Closely follow. Inpatient rehab. Further recommendations to follow. MMODL / IJN: [id number] /
[2018-01-28] MEDS ORDERED: WARFARIN 5 MG TAB PO ONE (18:00)
[2018-01-28] MEDS ORDERED: WARFARIN 2 MG TAB PO ONE (18:00)
[2018-01-28] MEDS ORDERED: TEMAZEPAM 30 MG CAP PO SCH (21:00)
--- NOTE | 2018-01-29 09:27 | OP ---
OPERATIVE REPORT DATE OF THE OPERATION: 01/25/2018. ATTENDING SURGEON: Dr. Dominic Ibrahim. PREOPERATIVE DIAGNOSIS: Sick sinus syndrome. POSTOPERATIVE DIAGNOSIS: Sick sinus syndrome. PROCEDURE: Single-chamber VVI pacemaker insertion, transvenous under fluoroscopic vision. ANESTHESIA: Local with IV sedation. SUMMARY: Patient was brought to the operating room, placed supine position. Following administration of some IV sedation, left chest was prepped and draped in a sterile fashion using chlorhexidine paint and sterile towels. After anesthetizing with about 10 mL of 1% Xylocaine, a pocket for the pacemaker created in the left infraclavicular region. The left subclavian vein was then cannulated. Guidewire passed under fluoroscopic vision. Dilator and sheath replaced. The ventricular lead a [employer] Tendril, model #2088TC 58 cm, serial #[id number] was positioned in the apex of the right ventricle. R waves were 3.1 mV and impedance of 610 ohms with a pacing threshold of 1 V at 0.4 milliseconds. The lead was then connected to the pulse generator. A [employer] MRI [id number], serial #[id number]. The lead was placed in the header. The screw was tightened and the generator placed in the pocket, to the underlying fascia and the pocket closed in 3 layers. No complications. Patient tolerated procedure well and was taken to the ICU in stable condition. MMODL / IJN: [id number] /
--- NOTE | 2018-01-29 12:35 | CDI ---
Documentation Clarification Form Date: 01/29/18 CDS/Chief Electrician Name: Alyx Mace Yael Sargent, [employer] Hours-8:30 am & 5 pm M-F Admit Date: 01/18/18 Discharge Date: 01/28/18 ATTENTION: The Clinical Documentation Specialists (CDI) and [facility] Coding Staff appreciate your assistance in clarifying documentation. Please respond to the clarification below the line at the bottom and electronically sign. The CDI & [facility] Coding staff will review the response and follow-up if needed. Please note: Queries are made part of the Legal Health Record. If you have any questions, please contact the author of this message via ITS. Dr. Dominic Ibrahim, Atrial Flutter is documented in the 01/26 & 01/27 progress notes - atrial flutter hear rate 60 and atrial flutter heart rate 70. History/Risk factors: s/p mitral valve replacement, tricuspid valve repair and single lead pacemaker insertion In your professional opinion, in order to capture the severity of condition; can you please clarify the type of atrial flutter if known? Typical/Type I Atypical/Type II Other, please specify Unable to determine Please continue to document in your progress notes and discharge summary in order to capture severity of illness and risk of mortality. Include clinical findings that support your diagnosis. MTDD
== END 2018-01-28 14:18 | DRG 219 ==
LOC: 2ORMAIN 05:54 → 6ICU 12:32 → 6SEL 01-27 06:28
PROVIDERS: ADMIT Thoracic Surgery (Cardiothoracic Vascular Surgery); ATTEND Thoracic Surgery (Cardiothoracic Vascular Surgery)
PROC: 02UJ0JZ Supplement Tricuspid Valve with Synthetic Substitute, Open Approach (ICD-10-PCS; 2018-01-18)
PROC: 5A1221Z Performance of Cardiac Output, Continuous (ICD-10-PCS; 2018-01-18)
PROC: 02L70CK Occlusion of Left Atrial Appendage with Extraluminal Device, Open Approach (ICD-10-PCS; 2018-01-18)
PROC: B246ZZ4 Ultrasonography of Right and Left Heart, Transesophageal (ICD-10-PCS; 2018-01-18)
PROC: 30243N0 Transfusion of Autologous Red Blood Cells into Central Vein, Percutaneous Approach (ICD-10-PCS; 2018-01-18)
PROC: 30243K1 Transfusion of Nonautologous Frozen Plasma into Central Vein, Percutaneous Approach (ICD-10-PCS; 2018-01-18)
PROC: 30243R1 Transfusion of Nonautologous Platelets into Central Vein, Percutaneous Approach (ICD-10-PCS; 2018-01-18)
PROC: 02RG0JZ Replacement of Mitral Valve with Synthetic Substitute, Open Approach (ICD-10-PCS; principal; 2018-01-18 08:00)
PROC: 30243N1 Transfusion of Nonautologous Red Blood Cells into Central Vein, Percutaneous Approach (ICD-10-PCS; 2018-01-20)
PROC: 0JH604Z Insertion of Pacemaker, Single Chamber into Chest Subcutaneous Tissue and Fascia, Open Approach (ICD-10-PCS; 2018-01-25)
PROC: 02HK3JZ Insertion of Pacemaker Lead into Right Ventricle, Percutaneous Approach (ICD-10-PCS; 2018-01-25)
DX: I08.1 Rheumatic disorders of both mitral and tricuspid valves (principal); I50.33 Acute on chronic diastolic (congestive) heart failure; I69.354 Hemiplegia and hemiparesis following cerebral infarction affecting left non-dominant side; D62 Acute posthemorrhagic anemia; J98.11 Atelectasis; I48.3 Typical atrial flutter; I97.89 Other postprocedural complications and disorders of the circulatory system, not elsewhere classified; I49.5 Sick sinus syndrome; I27.22 Pulmonary hypertension due to left heart disease; I48.2 Chronic atrial fibrillation; I11.0 Hypertensive heart disease with heart failure; J43.9 Emphysema, unspecified; I95.9 Hypotension, unspecified; R32 Unspecified urinary incontinence; I25.10 Atherosclerotic heart disease of native coronary artery without angina pectoris; E89.0 Postprocedural hypothyroidism; E78.5 Hyperlipidemia, unspecified; I25.2 Old myocardial infarction; M19.91 Primary osteoarthritis, unspecified site; G89.29 Other chronic pain; Z81.8 Family history of other mental and behavioral disorders; R33.9 Retention of urine, unspecified; M54.5 Low back pain; Z71.6 Tobacco abuse counseling; F17.210 Nicotine dependence, cigarettes, uncomplicated; Z91.19 Patient's noncompliance with other medical treatment and regimen; Z79.01 Long term (current) use of anticoagulants; Z79.82 Long term (current) use of aspirin; Z79.83 Long term (current) use of bisphosphonates; Z79.51 Long term (current) use of inhaled steroids; Z79.899 Other long term (current) drug therapy; Z87.01 Personal history of pneumonia (recurrent); Z90.49 Acquired absence of other specified parts of digestive tract; Z87.440 Personal history of urinary (tract) infections; Z96.641 Presence of right artificial hip joint; Z87.74 Personal history of (corrected) congenital malformations of heart and circulatory system; Z88.1 Allergy status to other antibiotic agents; Z88.5 Allergy status to narcotic agent; Z88.2 Allergy status to sulfonamides; Z87.81 Personal history of (healed) traumatic fracture; Z82.49 Family history of ischemic heart disease and other diseases of the circulatory system
CPT/HCPCS: 71045; 77001; 80048; 80053; 80162; 82330; 82805; 83735; 84100; 84132; 85025; 85027; 85520; 85610; 85730; 86850; 86891; 86900; 86901; 86920; 88305; 88311; 94002; 94640; 94760

== ENCOUNTER 2018-02-21 14:27 | Emergency (ER) | payer OTHER, MEDICARE ==
[2018-02-21] MEDS ORDERED: MORPHINE SULFATE 2 MG/ML SYRINGE IVP STA (14:42)
[2018-02-21] MEDS ORDERED: KETOROLAC 60 MG/2 ML VIAL IVP STA (14:42)
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
[2018-02-21 14:54] LABS: ALT 7 U/L (9-52); AST 54 U/L (14-36); Albumin 3.9 g/dL (3.5-5.0); Alkaline Phosphatase 161 U/L (38-126); Anion Gap 14 mmol/L; Basophils # (A) 0.1 k/uL (0-0.2); Basophils % (A) 1 %; Blood Urea Nitrogen 12 mg/dL (7-17); Calcium 8.8 mg/dL (8.4-10.2); Carbon Dioxide 25 mmol/L (22-30); Chloride 107 mmol/L (98-107); Eosinophils # (A) 0.5 k/uL (0-0.7); Eosinophils % (A) 5 %; Glucose 94 mg/dL (74-99); HCT 36.4 % (34.0-46.0); Hypochromasia Marked; Lymphocytes # (A) 0.9 k/uL (1.0-4.8); Lymphocytes % (A) 9 %; MCH 28.4 pg (25.0-35.0); MCHC 31.5 g/dL (31.0-37.0); MCV 90.2 fL (80.0-100.0); Mean Platelet Volume 7.3; Monocytes # (A) 0.7 k/uL (0-1.0); Monocytes % (A) 7 %; Neutrophils # (A) 8.6 k/uL (1.3-7.7); Neutrophils % (A) 78 %; Platelet Count 400 k/uL (150-450); Poikilocytosis Slight; RBC 4.04 m/uL (3.80-5.40); RDW 15.4 % (11.5-15.5); Sodium 146 mmol/L (137-145); Total Bilirubin 0.8 mg/dL (0.2-1.3); Total Protein 6.9 g/dL (6.3-8.2)
[2018-02-21 14:55] LABS: HGB 11.5 gm/dL (11.4-16.0); Potassium 3.8 mmol/L (3.5-5.1)
[2018-02-21 15:01] VITALS: TEMP 98.8
[2018-02-21 15:09] LABS: Creatine Kinase MB 0.9 ng/mL (0.0-2.4); Troponin I 0.032 ng/mL (0.000-0.034)
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
[2018-02-21 16:32] VITALS: BP 94/56; PULSE 69; RESP 18
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
== END 2018-02-21 17:00 | disposition home or self-care (01) ==
LOC: EC 14:27
DX: S20.219A Contusion of unspecified front wall of thorax, initial encounter (principal); S40.211A Abrasion of right shoulder, initial encounter; I48.91 Unspecified atrial fibrillation; I25.10 Atherosclerotic heart disease of native coronary artery without angina pectoris; I11.0 Hypertensive heart disease with heart failure; I50.9 Heart failure, unspecified; J44.9 Chronic obstructive pulmonary disease, unspecified; I05.0 Rheumatic mitral stenosis; Z86.73 Personal history of transient ischemic attack (TIA), and cerebral infarction without residual deficits; Z95.2 Presence of prosthetic heart valve; Z95.818 Presence of other cardiac implants and grafts; Z87.891 Personal history of nicotine dependence; Z79.899 Other long term (current) drug therapy; Z88.1 Allergy status to other antibiotic agents; Z88.2 Allergy status to sulfonamides; Z88.6 Allergy status to analgesic agent; V43.62XA Car passenger injured in collision with other type car in traffic accident, initial encounter; Y92.410 Unspecified street and highway as the place of occurrence of the external cause
CPT/HCPCS: 99285; 96374; 96375; 36415; 93005; 80053; 82550; 82553; 84484; 85025; 71046; 71250; J1885; J2270

== ENCOUNTER → 2018-03-12 | Outpatient (CLI) | payer MEDICARE, OTHER ==
[2018-03-12 17:09] LABS: HCT 40.4 % (34.0-46.0); Hypochromasia Slight; MCH 28.1 pg (25.0-35.0); MCHC 32.1 g/dL (31.0-37.0); MCV 87.6 fL (80.0-100.0); Mean Platelet Volume 7.5; Platelet Count 356 k/uL (150-450); RBC 4.61 m/uL (3.80-5.40); RDW 15.2 % (11.5-15.5)
[2018-03-12 17:19] LABS: Prothrombin Time 74.5 sec (9.0-12.0)
[2018-03-12 18:30] LABS: INR 8.1 (<1.2)
== END | disposition home or self-care (01) ==
LOC: LABWHC1 16:29
PROVIDERS: ATTEND Internal Medicine Interventional Cardiology
DX: I48.91 Unspecified atrial fibrillation (principal); Z79.01 Long term (current) use of anticoagulants
CPT/HCPCS: 36415; 85027; 85610

== ENCOUNTER → 2018-03-26 | Outpatient (CLI) | payer MEDICARE ==
[2018-03-26 09:36] VITALS: BP 99/69; PULSE 79; BMI 20.5
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
--- NOTE | 2018-03-29 09:10 | USB ---
Reason for exam: clinical finding. History: Patient is postmenopausal. Took hormonal contraceptives for 1 year beginning at age 20. Physical Findings: Nurse did not find any significant physical abnormalities on exam. US Breast LT Technologist: Radha Zhu, RT (R)(M) Left complete breast ultrasound includes all four quadrants, the retroareolar region and axilla. Finding demonstrates a 14 x 8 x 7mm complex area at 2 o'clock, questionable resolving hematoma. These results were verbally communicated with the patient and result sheet given to the patient on 03/26/18. ASSESSMENT: Probably benign, BI-RAD 3 RECOMMENDATION: Ultrasound of the left breast in 3 months. Manage patient on a clinical basis.
== END | disposition home or self-care (01) ==
LOC: WWCWWP 09:24
PROVIDERS: ATTEND Surgery
DX: N63.20 Unspecified lump in the left breast, unspecified quadrant (principal)

== ENCOUNTER → 2025-01-18 | Outpatient (CLI) | payer MEDICARE ==
--- NOTE | 2025-01-18 10:34 | MM ---
Reason for Exam: Screening (asymptomatic). Last mammogram was performed 2 year(s) and 6 month(s) ago. Patient History: Menarche at age 11. First Full-Term at age 24. Postmenopausal. Hormonal Contraceptives, starting at age 20 for 1 year. Risk Values: Elo 5 year model risk: 1.7%. NCI Lifetime model risk: 5.2%. Prior Study Comparison: 03/08/2013 Bilateral Screening Mammogram, [facility]. 04/02/2016 Bilateral Screening Mammogram, [facility]. 05/29/2017 Bilateral Screening Mammogram, [facility]. Tissue Density: The breasts are heterogeneously dense, which may obscure small masses. Findings: Analyzed By CAD. There are small benign-appearing round calcifications bilaterally redemonstrated. Some benign-appearing vascular calcifications in the right breast is again seen. There is no suspicious group of microcalcifications or new suspicious mass in either breast. Overall Assessment: Benign, BI-RAD 2 Management: Screening Mammogram of both breasts in 1 year. Some advise annual bilateral breast ultrasound surveillance in patients with background dense tissue. Patient should continue monthly self-breast exams. A clinical breast exam by your physician is recommended on an annual basis. This exam should not preclude additional follow-up of suspicious palpable abnormalities. Note on Elo scores and lifetime risk: 1. A Elo score greater than 3% is considered moderate risk. If this is the case, consider specialist referral to assess eligibility for a risk reducing agent. 2. If overall lifetime risk for the development of breast cancer is 20% or higher, the patient may qualify for future screening with alternating mammogram and breast MRI. [facility], , 01/18/2025 10:31 AM. Electronically signed and approved by: Greg Tejada M.D.
== END | disposition home or self-care (01) ==
LOC: RADMAMWWP 08:51
PROVIDERS: ATTEND Family Medicine
DX: Z12.31 Encounter for screening mammogram for malignant neoplasm of breast (principal); R92.333 Mammographic heterogeneous density, bilateral breasts; R92.1 Mammographic calcification found on diagnostic imaging of breast; Z78.0 Asymptomatic menopausal state; Z92.0 Personal history of contraception
CPT/HCPCS: 77063; 77067

== ENCOUNTER 2025-03-02 15:25 | Emergency (ER) | payer MEDICARE ==
[2025-03-02 15:33] VITALS: TEMP 98.4
--- NOTE | 2025-03-02 16:37 | ED ---
General Adult HPI - General Source: patient, EMS, RN notes reviewed, old records reviewed Mode of arrival: EMS <Tammy Gu - Last Filed: 03/02/25 20:42> <Song Agarwal - Last Filed: 03/02/25 21:35> - General Chief complaint: Shortness of Breath Stated complaint: SOB - History of Present Illness Initial comments: 69-year-old female with a past medical history of pacemaker placements, aortic valve replacement, COPD presents with complaints of shortness of breath. Reports for the last couple days she has been feeling increased shortness of breath, has also had a cough productive initially of white sputum but then turned to yellow sputum. States she is also been having some burning sensation with urination. Reports she smokes about a half a pack of cigarettes a day, and has been to the hospital before when she was in [place] for COPD exacerbations d enies headache, chest pain, palpitations, nausea, vomiting, diarrhea, constipation, lower extremity edema, and fevers. (Tammy Gu) - Related Data Home Medications Medication Instructions Recorded Confirmed Loratadine [Claritin] 10 mg PO DAILY 05/22/17 03/26/18 Furosemide [Lasix] 40 mg PO DAILY 09/01/17 03/26/18 Alendronate Sodium [Fosamax] 70 mg PO DAVIS 09/17/17 03/26/18 Oxybutynin Xl [Ditropan XL] 5 mg PO DAILY 09/17/17 03/26/18 Albuterol Inhaler [Ventolin Hfa 1 - 2 puff INHALATION RT-BID 01/13/18 03/26/18 Inhaler] Previous Rx's Medication Instructions Recorded Ipratropium-Albuterol Nebulize 3 ml INHALATION RT-QID #120 09/06/17 [Duoneb 0.5 mg-3 mg/3 ml Soln] ampul.neb Acetaminophen Tab [Tylenol] 500 mg PO Q6HR PRN tab 09/22/17 Ascorbic Acid [Vitamin C] 500 mg PO DAILY@1200 tab 01/28/18 Aspirin 81 mg PO DAILY chew 01/28/18 Atorvastatin [Lipitor] 40 mg PO DAILY tab 01/28/18 Budesonide-Formot 160-4.5 Mcg 2 puff INHALATION RT-BID puff 01/28/18 [Symbicort 160-4.5 Mcg Inhaler] Escitalopram [Lexapro] 10 mg PO HS tab 01/28/18 Ferrous Sulfate [Iron (65 MG 325 mg PO BID-W/MEALS tab 01/28/18 Elemental)] Metoprolol Tartrate [Lopressor] 25 mg PO BID tab 01/28/18 Pantoprazole [Protonix] 40 mg PO AC-BRKFST tablet. 01/28/18 Warfarin [Coumadin] 2 mg PO HS #0 tab 01/28/18 bisacodyL [Dulcolax] 10 mg RECTAL DAILY PRN supp 01/28/18 Ketorolac [Toradol] 10 mg PO Q6HR #20 tab 03/02/25 Allergies Allergy/AdvReac Type Severity Reaction Status Date / Time ciprofloxacin [From Cipro] Allergy Rash/Hives Verified 03/02/25 15:37 Sulfa (Sulfonamide Allergy Rash/Hives Verified 03/02/25 15:37 Antibiotics) tramadol [From Ultram] AdvReac Rash/Hives Verified 03/02/25 15:37 Review of Systems ROS Other: All systems not noted in ROS Statement are negative. <Tammy Gu - Last Filed: 03/02/25 20:42> ROS Other: All systems not noted in ROS Statement are negative. <Song Agarwal - Last Filed: 03/02/25 21:35> ROS Statement: Those systems with pertinent positive or pertinent negative responses have been documented in the HPI. Past Medical History Past Medical History: Atrial Fibrillation, Coronary Artery Disease (CAD), Heart Failure, COPD, CVA/TIA, Hyperlipidemia, Hypertension, Osteoarthritis (OA), Pneumonia Additional Past Medical History / Comment(s): DDD,chronic back pain, urinary incontience, pne multiple times and once being sepsic and on vent for 4 months at [place], incont of urine/wears breif. emphysema, bronchits,,per pt's daughter- issue w/ shuffling gait won't life her feet when she walk, uses cane when up, mitral valve heart disease-valve stenosis/regurg/previous valvuloplasty 2012/asd closure Last Myocardial Infarction Date:: History of Any Multi-Drug Resistant Organisms: None Reported Past Surgical History: Adenoidectomy, Cholecystectomy, Heart Catheterization, Orthopedic Surgery, Tonsillectomy Additional Past Surgical History / Comment(s): bilateral hands, ankle, D and C d/t miscarriage,previously charted- mitral valvuloplasty/asd closure, orif rt ankle, micheal carpal tunnel Past Anesthesia/Blood Transfusion Reactions: No Reported Reaction Past Psychological History: Depression Past Alcohol Use History: None Reported Past Drug Use History: None Reported - Past Family History Mother Family Medical History: Dementia Father Family Medical History: Congestive Heart Failure (CHF), Myocardial Infarction (MS) Sister(s) Family Medical History: No Reported History <Tammy Gu - Last Filed: 03/02/25 20:42> General Exam <Tammy Gu - Last Filed: 03/02/25 20:42> - General Exam Comments Initial Comments: GENERAL: In no apparent distress at the time of examination. Pleasant and cooperative. HEENT: Head is atraumatic, normocephalic. Pupils are equal, round, and reactive to light. Sclerae anicteric. Conjunctivae are clear. Mucus membranes of the mout h are moist. Neck is supple. RESPIRATORY: Diminished lung sounds and wheezing auscultated throughout bilateral lung cuadra, no use of accessory muscles. Patient maintaining oxygen saturation greater than 92%. No chest wall tenderness is noted on palpation or with deep breathing. CARDIOVASCULAR: Regular rate and rhythm. S1 and S2 noted. No systolic or diastolic murmur auscultated. No JVD noted. No S3 or S4 noted. GASTROINTESTINAL: No distention noted. Abdomen soft and round. Normal active b owel sounds auscultated x 4 quadrants. No pain or tenderness noted upon palpation. INTEGUMENTARY: No cyanosis. No jaundice. No rashes noted. No cellulitis noted. EXTREMITIES: 2+ peripheral pulses. No evidence of peripheral edema. No calf tenderness noted. PSYCHIATRIC: Awake, alert, and oriented X 3. Appropriate affect. Intact judgement and insight. (Tammy Gu) Course <Tammy Gu - Last Filed: 03/02/25 20:42> Vital Signs 03/02/25 03/02/25 03/02/25 15:26 15:45 15:57 Temperature 98.4 F Pulse Rate 70 70 Respiratory 20 20 20 Rate Blood Pressure 101/66 120/75 O2 Sat by Pulse 96 96 Oximetry 03/02/25 03/02/2525 17:42 17:52 20:28 Temperature Pulse Rate 72 75 70 Respiratory 17 Rate Blood Pressure 104/56 O2 Sat by Pulse 100 Oximetry 03/02/25 20:50 Temperature 98.4 F Pulse Rate Respiratory Rate Blood Pressure O2 Sat by Pulse Oximetry - Reevaluation(s) Reevaluation #1: 03/02/25 19:56 Patient resting comfortably in bed eating a sandwich. After receiving breathing treatments she no longer has complaints of cough or shortness of breath. Pending urine (to workup complaints of dysuria) as patient has tried to give sample but has not been able to yet. (Tammy Gu) Medical Decision Making - Lab Data Result diagrams: 03/02/25 16:53 03/02/25 16:53 <Tammy Gu - Last Filed: 03/02/25 20:42> - Lab Data Result diagrams: 03/02/25 16:53 03/02/25 16:53 <Song Agarwal - Last Filed: 03/02/25 21:35> - Medical Decision Making Was pt. sent in by a medical professional or institution (, PA, DIPLOMATIC COURIER, urgent care, hospital, or intermediate...) When possible be specific @ -No Did you speak to anyone other than the patient for history (EMS, parent, family, police, friend...)? What history was obtained from this source @ -No Did you review nursing and triage notes (agree or disagree)? Why? @ -I reviewed and agree with nursing and triage notes Were old charts reviewed (outside hosp., previous admission, EMS record, old EKG, old radiological studies, urgent care reports/EKG's, intermediate records)? Report findings @ -No old charts were reviewed Differential Diagnosis? @ -Differential Dyspnea: Coronary syndrome, arrhythmia, tamponade, asthma, COPD, pulmonary embolism, pneumonia, pneumothorax, pulmonary effusion, anaphylaxis, diabetic ketoacidosis, flailed chest, pulmonary contusion, diaphragmatic rupture, anemia, neuromuscular, this is not meant to be an all-inclusive list. EKG interpreted by me (3pts min.). @ -EKG interpreted, electronic ventricular pacemaker, significant artifact X-rays interpreted by me (1pt min.). @ -No acute cardiopulmonary process, COPD changes appreciated CT interpreted by me (1pt min.). @ -None done U/S interpreted by me (1pt. min.). @ -None done What testing was considered but not performed or refused? (CT, X-rays, U/S, labs)? Why? @ -None What meds were considered but not given or refused? Why? @ -None Did you discuss the management of the patient with other professionals (professionals i.e. DrAurea, PA, DIPLOMATIC COURIER, lab, RT, psych nurse, social science professor, machine adjuster leader, teacher, chief procurement officer, case advocate)? Give summary @ -No Was smoking cessation discussed for >3mins.? @ -No Was critical care preformed (if so, how long)? @ -No Were there social determinants of health that impacted care today? How? (Homele ssness, low income, unemployed, alcoholism, drug addiction, transportation, low edu. Level, literacy, decrease access to med. care, long term, rehab)? @ -No Was there de-escalation of care discussed even if they declined (Discuss DNR or withdrawal of care, Hospice)? DNR status @ -No What co-morbidities impacted this encounter? (DM, HTN, Smoking, COPD, CAD, Cancer, CVA, ARF, Chemo, Hep., AIDS, mental health diagnosis, sleep apnea, morbid obesity)? @ -None Was patient admitted / discharged? Hospital course, mention meds given and route, prescriptions, significant lab abnormalities, going to OR and other pertinent info. @ -Discharged, 69-year-old female presenting with complaints of shortness of mraion ath and cough. Chest x-ray showed no acute cardiopulmonary process with COPD changes. Lab work was within normal limits. Patient received breathing treatment with resolution of symptoms. Patient also had complaints of pain and frequency of urination, but during her entire 5-hour stay in the ED sample. Patient states she was fine going without giving a sample. Upon final evaluation patient was resting comfortably in bed eating a sandwich and ready to go home. Undiagnosed new problem with uncertain prognosis? @ -No Drug Therapy requiring intensive monitoring for toxicity (Heparin, Nitro, I nsulin, Cardizem)? @ -No Were any procedures done? @ -No Diagnosis/symptom? @ -Minor COPD exacerbation Acute, or Chronic, or Acute on Chronic? @ -Acute on chronic Uncomplicated (without systemic symptoms) or Complicated (systemic symptoms)? @ -Default Side effects of treatment? @ -No Exacerbation, Progression, or Severe Exacerbation? @ -No Poses a threat to life or bodily function? How? (Chest pain, USA, MS, pneumonia, PE, COPD, DKA, ARF, appy, cholecystitis, CVA, Diverticulitis, Homicidal, Suic idal, threat to staff... and all critical care pts) @ -No (Tammy Gu) I personally saw the patient and performed the critical portion of the service. I discussed the patient care with the resident. I directed management, care planning and final disposition of the patient. This includes, but not limited to, review of all lab work, radiological studies, EKG's, consultations, vital signs, and nursing notes. EKG interpreted by me (3pts min.) @As above X-Rays interpreted by me (1 pt min.) @Chest x-ray shows no acute abnormality some chronic COPD changes noted CT interpreted by me ( 1pt min.) @None U/S interpreted by me (1 pt min.) @None Critical care time of 0 minutes excluding separately billable procedures was spent in conjunction with critical care activities provided by the Resident and Attending simultaneously. I was present during no procedures for all critical portions of the procedure and as immediately available to furnish service during the entire procedure. (Song Agarwal) - Lab Data Lab Results 03/02/25 03/02/25 Range/Units 16:53 16:53 WBC 5.28 (4.50-10.00) 10*3/uL RBC 3.85 L (4.10-5.20) 10*6/uL Hgb 11.8 L (12.0-15.0) g/dL Hct 35.4 L (37.2-46.3) % MCV 91.9 (80.0-97.0) fL MCH 30.6 (27.0-32.0) pg MCHC 33.3 (32.0-37.0) g/dL Plt Count 320 (140-440) 10*3/uL MPV 10.2 (9.5-12.2) fL Immature Gran % (Auto) 0.2 % Neutrophils % 58.9 % Lymphocytes % 24.6 % Monocytes % 12.3 % Eosinophils % 2.5 % Basophils % 1.5 % Immature Gran # 0.01 (0.00-0.04) 10*3/uL Neutrophils # 3.11 (1.80-7.70) 10*3/uL Lymphocytes # 1.30 (0.90-5.00) 10*3/uL Monocytes # 0.65 (0.20-1.00) 10*3/uL Eosinophils # 0.13 (0.04-0.35) 10*3/uL Basophils # 0.08 (0.00-0.10) 10*3/uL Sodium 138 (137-145) mmol/L Potassium 3.7 (3.5-5.1) mmol/L Chloride 104 (98-107) mmol/L Carbon Dioxide 24 (22-30) mmol/L Anion Gap 10 mmol/L BUN 20 H (7-17) mg/dL Creatinine 0.89 (0.52-1.04) mg/dL Est GFR (CKD-EPI)AfAm 77 (>60 ml/min/1.73 sqM) Est GFR (CKD-EPI)NonAf 66 (>60 ml/min/1.73 sqM) Glucose 98 (74-99) mg/dL Calcium 9.2 (8.4-10.2) mg/dL Total Bilirubin 0.4 (0.2-1.3) mg/dL AST 30 (14-36) U/L ALT 12 (4-34) U/L Alkaline Phosphatase 125 (38-126) U/L Total Protein 7.0 (6.3-8.2) g/dL Albumin 4.2 (3.5-5.0) g/dL Disposition Is patient prescribed a controlled substance at d/c from ED?: No <Tammy Gu - Last Filed: 03/02/25 20:42> <Song Agarwal - Last Filed: 03/02/25 21:35> Clinical Impression: Shortness of breath, COPD (chronic obstructive pulmonary disease) Disposition: HOME SELF-CARE Instructions (If sedation given, give patient instructions): Emphysema (ED) Prescriptions: Ketorolac [Toradol] 10 mg PO Q6HR #20 tab Referrals: Raphael Egan MD [Primary Care Provider] - 1-2 days
[2025-03-02] MEDS: KETOROLAC 15 MG/ML 1 ML VIAL IVP STA (16:41)
[2025-03-02 17:01] LABS: Basophils # (A) 0.08 10*3/uL (0.00-0.10); Basophils % (A) 1.5 %; Eosinophils # (A) 0.13 10*3/uL (0.04-0.35); Eosinophils % (A) 2.5 %; HCT 35.4 % (37.2-46.3); HGB 11.8 g/dL (12.0-15.0); Lymphocytes % (A) 24.6 %; MCH 30.6 pg (27.0-32.0); MCHC 33.3 g/dL (32.0-37.0); MCV 91.9 fL (80.0-97.0); Mean Platelet Volume 10.2 fL (9.5-12.2); Monocytes # (A) 0.65 10*3/uL (0.20-1.00); Monocytes % (A) 12.3 %; Neutrophils # (A) 3.11 10*3/uL (1.80-7.70); Neutrophils % (A) 58.9 %; Platelet Count 320 10*3/uL (140-440); RBC 3.85 10*6/uL (4.10-5.20); RDW 15.1 % (11.5-14.5); WBC 5.28 10*3/uL (4.50-10.00)
[2025-03-02] MEDS: IPRATROPIUM-ALBUTEROL 3 ML NEB INHALATION STA (17:42)
[2025-03-02 17:48] LABS: ALT 12 U/L (4-34); AST 30 U/L (14-36); African American GFR (CKD) 77 (>60 ml/min/1.73 sqM); Albumin 4.2 g/dL (3.5-5.0); Alkaline Phosphatase 125 U/L (38-126); Anion Gap 10 mmol/L; Blood Urea Nitrogen 20 mg/dL (7-17); Calcium 9.2 mg/dL (8.4-10.2); Carbon Dioxide 24 mmol/L (22-30); Chloride 104 mmol/L (98-107); Glucose 98 mg/dL (74-99); Non-African American GFR(CKD) 66 (>60 ml/min/1.73 sqM); Potassium 3.7 mmol/L (3.5-5.1); Sodium 138 mmol/L (137-145); Total Bilirubin 0.4 mg/dL (0.2-1.3)
--- NOTE | 2025-03-02 19:24 | XR ---
EXAMINATION TYPE: XR chest 2V DATE OF EXAM: 03/02/2025 7:07 PM COMPARISON: 02/21/2018. CLINICAL INDICATION: Female, 69 years old with history of difficulty breathing; TECHNIQUE: XR chest 2V Frontal and lateral views of the chest. FINDINGS: Lungs/Pleura: There is flattening of the diaphragm with increased lucency of the lungs. No evidence o f pneumothorax, pleural effusion or focal consolidation. Pulmonary vascularity: Unremarkable. Heart/mediastinum: Cardiomediastinal silhouette is unremarkable. Post aortic valve repair changes. L eft atrial appendage occlusion device is present. Single-lead cardiac conduction device overlying the left hemithorax with lead projecting over the right ventricle. Musculoskeletal: No acute osseous pathology. Other findings: None IMPRESSION: 1. No acute cardiopulmonary disease process. 2. COPD changes. [facility], , 03/02/2025 7:22 PM
[2025-03-02 20:36] VITALS: BP 104/56; PULSE 70; RESP 17
== END 2025-03-02 21:00 | disposition home or self-care (01) ==
LOC: EC 15:25
DX: J44.1 Chronic obstructive pulmonary disease with (acute) exacerbation (principal); F17.210 Nicotine dependence, cigarettes, uncomplicated; Z88.1 Allergy status to other antibiotic agents; Z88.2 Allergy status to sulfonamides; Z88.5 Allergy status to narcotic agent
CPT/HCPCS: 36415; 94640; 93005; 80053; 85025; 84145; 71046; 99285; 96374; J1885

== ENCOUNTER 2025-03-11 09:26 | Inpatient (IN) | payer MEDICARE ==
--- NOTE | 2025-03-11 10:07 | ED ---
General Adult HPI - General Chief complaint: Neck Pain/Injury Stated complaint: Neck pain Time Seen by Provider: 03/11/25 09:30 Source: patient, EMS, RN notes reviewed Mode of arrival: EMS Limitations: physical limitation - History of Present Illness Initial comments: 69-year-old female presents emergency department via EMS chief complaint of left-sided neck pain and swelling. Patient states she has had a sore throat for last few days was seen by PCP yesterday was placed on oral antibiotics. Patient states she woke up with swelling today increasing pain denies any difficulty swallowing states just sore patient states she had no trauma but there is bruising noted and she is unsure why but she states she bruises very easily secondary to being on Coumadin she states she is on Coumadin from prior strokes, mechanical aortic valve. - Related Data Home Medications Medication Instructions Recorded Confirmed Loratadine [Claritin] 10 mg PO DAILY 05/22/17 03/26/18 Furosemide [Lasix] 40 mg PO DAILY 09/01/17 03/26/18 Alendronate Sodium [Fosamax] 70 mg PO DAVIS 09/17/17 03/26/18 Oxybutynin Xl [Ditropan XL] 5 mg PO DAILY 09/17/17 03/26/18 Albuterol Inhaler [Ventolin Hfa 1 - 2 puff INHALATION RT-BID 01/13/18 03/26/18 Inhaler] Previous Rx's Medication Instructions Recorded Ipratropium-Albuterol Nebulize 3 ml INHALATION RT-QID #120 09/06/17 [Duoneb 0.5 mg-3 mg/3 ml Soln] ampul.neb Acetaminophen Tab [Tylenol] 500 mg PO Q6HR PRN tab 09/22/17 Ascorbic Acid [Vitamin C] 500 mg PO DAILY@1200 tab 01/28/18 Aspirin 81 mg PO DAILY chew 01/28/18 Atorvastatin [Lipitor] 40 mg PO DAILY tab 01/28/18 Budesonide-Formot 160-4.5 Mcg 2 puff INHALATION RT-BID puff 01/28/18 [Symbicort 160-4.5 Mcg Inhaler] Escitalopram [Lexapro] 10 mg PO HS tab 01/28/18 Ferrous Sulfate [Iron (65 MG 325 mg PO BID-W/MEALS tab 01/28/18 Elemental)] Metoprolol Tartrate [Lopressor] 25 mg PO BID tab 01/28/18 Pantoprazole [Protonix] 40 mg PO AC-BRKFST tablet. 01/28/18 Warfarin [Coumadin] 2 mg PO HS #0 tab 01/28/18 bisacodyL [Dulcolax] 10 mg RECTAL DAILY PRN supp 01/28/18 Ketorolac [Toradol] 10 mg PO Q6HR #20 tab 03/02/25 Allergies Allergy/AdvReac Type Severity Reaction Status Date / Time ciprofloxacin [From Cipro] Allergy Rash/Hives Verified 03/11/25 09:36 Sulfa (Sulfonamide Allergy Rash/Hives Verified 03/11/25 09:36 Antibiotics) tramadol [From Ultram] AdvReac Rash/Hives Verified 03/11/25 09:36 Review of Systems ROS Statement: Those systems with pertinent positive or pertinent negative responses have been documented in the HPI. ROS Other: All systems not noted in ROS Statement are negative. Past Medical History Past Medical History: Atrial Fibrillation, Coronary Artery Disease (CAD), Heart Failure, COPD, CVA/TIA, Hyperlipidemia, Hypertension, Osteoarthritis (OA), Pneumonia Additional Past Medical History / Comment(s): DDD,chronic back pain, urinary incontience, pne multiple times and once being sepsic and on vent for 4 months at [place], incont of urine/wears breif. emphysema, bronchits,,per pt's daughter- issue w/ shuffling gait won't life her feet when she walk, uses cane when up, mitral valve heart disease-valve stenosis/regurg/previous valvuloplasty 2012/asd closure Last Myocardial Infarction Date:: History of Any Multi-Drug Resistant Organisms: None Reported Past Surgical History: Adenoidectomy, Cholecystectomy, Heart Catheterization, Orthopedic Surgery, Tonsillectomy Additional Past Surgical History / Comment(s): bilateral hands, ankle, D and C d/t miscarriage,previously charted- mitral valvuloplasty/asd closure, orif rt ankle, micheal carpal tunnel Past Anesthesia/Blood Transfusion Reactions: No Reported Reaction Past Psychological History: Depression Smoking Status: Current some day smoker Past Alcohol Use History: None Reported Past Drug Use History: None Reported - Past Family History Mother Family Medical History: Dementia Father Family Medical History: Congestive Heart Failure (CHF), Myocardial Infarction (LA) Sister(s) Family Medical History: No Reported History General Exam Limitations: no limitations General appearance: alert, in no apparent distress Head exam: Present: atraumatic, normocephalic, normal inspection Eye exam: Present: normal appearance, PERRL, EOMI. Absent: scleral icterus, conjunctival injection, periorbital swelling ENT exam: Present: mucous membranes moist, TM's normal bilaterally, normal external ear exam. Absent: normal exam, normal oropharynx (Large hematoma left side of the neck) Neck exam: Present: tenderness, full ROM. Absent: normal inspection (Ecchymosis, swelling left submandibular and left side of the neck), meningismus, lymphadenopathy Respiratory exam: Present: normal lung sounds bilaterally. Absent: respiratory distress, wheezes, rales, rhonchi, stridor Cardiovascular Exam: Present: regular rate, normal rhythm, normal heart sounds. Absent: systolic murmur, diastolic murmur, rubs, gallop, clicks GI/Abdominal exam: Present: soft, normal bowel sounds. Absent: distended, tenderness, guarding, rebound, rigid Course Vital Signs 03/11/25 03/11/25 09:28 11:00 Temperature 99.4 F 99.1 F Pulse Rate 70 70 Respiratory 14 18 Rate Blood Pressure 113/65 110/70 O2 Sat by Pulse 98 96 Oximetry Medical Decision Making - Medical Decision Making Was pt. sent in by a medical professional or institution ([facility], MANAGER CARE, urgent care, hospital, or half-way...) When possible be specific @ -No Did you speak to anyone other than the patient for history (EMS, parent, family, police, friend...)? What history was obtained from this source @ -No Did you review nursing and triage notes (agree or disagree)? Why? @ -I reviewed and agree with nursing and triage notes Were old charts reviewed (outside hosp., previous admission, EMS record, old EKG, old radiological studies, urgent care reports/EKG's, half-way records)? Report findings @ -No old charts were reviewed Differential Diagnosis (chest pain, altered mental status, abdominal pain women, abdominal pain men, vaginal bleeding, weakness, fever, dyspnea, syncope, headache, dizziness, GI bleed, back pain, seizure, CVA, palpatations, mental health, musculoskeletal)? @ -Hematoma, mono, strep pharyngitis, abscess, EKG interpreted by me (3pts min.). @ -None X-rays interpreted by me (1pt min.). @ -None done CT interpreted by me (1pt min.). @ -CT soft tissue neck showing diffuse swelling, no localized or focal abscess cannot rule out malignant process. U/S interpreted by me (1pt. min.). @ -None done What testing was considered but not performed or refused? (CT, X-rays, U/S, labs)? Why? @ -None What meds were considered but not given or refused? Why? @ -None Did you discuss the management of the patient with other professionals (professionals i.e. , PA, MANAGER CARE, lab, RT, psych nurse, nursing home social worker, surveying teacher, te acher, digital marketing officer, caser)? Give summary @[facility] for admission Was smoking cessation discussed for >3mins.? @ -No Was critical care preformed (if so, how long)? @ -No Were there social determinants of health that impacted care today? How? (Homelessness, low income, unemployed, alcoholism, drug addiction, transportation, low edu. Level, literacy, decrease access to med. care, [place] [facility], rehab)? @ -No Was there de-escalation of care discussed even if they declined (Discuss DNR or withdrawal of care, Hospice)? DNR status @ -No What co-morbidities impacted this encounter? (DM, HTN, Smoking, COPD, CAD, Cancer, CVA, ARF, Chemo, Hep., AIDS, mental health diagnosis, sleep apnea, morbid obesity)? @ -None Was patient admitted / discharged? Hospital course, mention meds given and route, prescriptions, significant lab abnormalities, going to OR and other pertinent info. @ -Admitted patient is found to have INR greater than 10 induced by Coumadin. Patient was given vitamin K 10 mg secondary to hematoma she has no other active sites of bleeding. Patient CT showed diffuse swelling more likely to be hematoma there is no compromised airway and she is in no sign stress without any significant rapidly changing symptoms patient will be observed with repeat INR, CBC Undiagnosed new problem with uncertain prognosis? @ -No Drug Therapy requiring intensive monitoring for toxicity (Heparin, Nitro, Insulin, Cardizem)? @ -No Were any procedures done? @ -No Diagnosis/symptom? @ -[Neck hematoma, warfarin induced hypercoagulopathy Acute, or Chronic, or Acute on Chronic? @ -Acute Uncomplicated (without systemic symptoms) or Complicated (systemic symptoms)? @ -complicated Side effects of treatment? @ -No Exacerbation, Progression, or Severe Exacerbation? @ -No Poses a threat to life or bodily function? How? (Chest pain, USA, LA, pneumonia, PE, COPD, DKA, ARF, appy, cholecystitis, CVA, Diverticulitis, Homicidal, Suicidal, threat to staff... and all critical care pts) @ -[Yes hypercoagulopathy from Coumadin causing bleeding - Lab Data Result diagrams: 03/11/25 10:00 03/11/25 10:00 Lab Results 03/11/25 03/11/25 03/11/25 Range/Units 10:00 10:00 10:00 WBC 7.79 (4.50-10.00) 10*3/uL RBC 3.35 L (4.10-5.20) 10*6/uL Hgb 10.2 L (12.0-15.0) g/dL Hct 31.2 L (37.2-46.3) % MCV 93.1 (80.0-97.0) fL MCH 30.4 (27.0-32.0) pg MCHC 32.7 (32.0-37.0) g/dL Plt Count 388 (140-440) 10*3/uL MPV 9.8 (9.5-12.2) fL Immature Gran % (Auto) 0.1 % Neutrophils % 74.7 % Lymphocytes % 9.5 % Monocytes % 13.2 % Eosinophils % 1.5 % Basophils % 1.0 % Immature Gran # 0.01 (0.00-0.04) 10*3/uL Neutrophils # 5.81 (1.80-7.70) 10*3/uL Lymphocytes # 0.74 L (0.90-5.00) 10*3/uL Monocytes # 1.03 H (0.20-1.00) 10*3/uL Eosinophils # 0.12 (0.04-0.35) 10*3/uL Basophils # 0.08 (0.00-0.10) 10*3/uL PT 107.7 H (10.0-12.5) sec INR >10.0 H* (<1.2) APTT 81.9 H (22.0-30.0) sec Sodium (137-145) mmol/L Potassium (3.5-5.1) mmol/L Chloride (98-107) mmol/L Carbon Dioxide (22-30) mmol/L Anion Gap mmol/L BUN (7-17) mg/dL Creatinine (0.52-1.04) mg/dL Est GFR (CKD-EPI)AfAm (>60 ml/min/1.73 sqM) Est GFR (CKD-EPI)NonAf (>60 ml/min/1.73 sqM) Glucose (74-99) mg/dL Calcium (8.4-10.2) mg/dL Total Bilirubin (0.2-1.3) mg/dL AST (14-36) U/L ALT (4-34) U/L Alkaline Phosphatase (38-126) U/L Total Protein (6.3-8.2) g/dL Albumin (3.5-5.0) g/dL Heterophile Antibody Negative (Negative) 03/11/25 Range/Units 10:00 WBC (4.50-10.00) 10*3/uL RBC (4.10-5.20) 10*6/uL Hgb (12.0-15.0) g/dL Hct (37.2-46.3) % MCV (80.0-97.0) fL MCH (27.0-32.0) pg MCHC (32.0-37.0) g/dL Plt Count (140-440) 10*3/uL MPV (9.5-12.2) fL Immature Gran % (Auto) % Neutrophils % % Lymphocytes % % Monocytes % % Eosinophils % % Basophils % % Immature Gran # (0.00-0.04) 10*3/uL Neutrophils # (1.80-7.70) 10*3/uL Lymphocytes # (0.90-5.00) 10*3/uL Monocytes # (0.20-1.00) 10*3/uL Eosinophils # (0.04-0.35) 10*3/uL Basophils # (0.00-0.10) 10*3/uL PT (10.0-12.5) sec INR (<1.2) APTT (22.0-30.0) sec Sodium 137 (137-145) mmol/L Potassium 4.7 (3.5-5.1) mmol/L Chloride 104 (98-107) mmol/L Carbon Dioxide 23 (22-30) mmol/L Anion Gap 10 mmol/L BUN 12 (7-17) mg/dL Creatinine 0.62 (0.52-1.04) mg/dL Est GFR (CKD-EPI)AfAm >90 (>60 ml/min/1.73 sqM) Est GFR (CKD-EPI)NonAf >90 (>60 ml/min/1.73 sqM) Glucose 120 H (74-99) mg/dL Calcium 9.1 (8.4-10.2) mg/dL Total Bilirubin 1.8 H (0.2-1.3) mg/dL AST 55 H (14-36) U/L ALT 17 (4-34) U/L Alkaline Phosphatase 186 H (38-126) U/L Total Protein 7.1 (6.3-8.2) g/dL Albumin 4.2 (3.5-5.0) g/dL Heterophile Antibody (Negative) Disposition Clinical Impression: Warfarin-induced coagulopathy, Hematoma of neck Disposition: ADMITTED IP TO THIS HOSP Condition: Poor Referrals: Raphael Egan MD [Primary Care Provider] - 1-2 days Time of Disposition: 12:50
[2025-03-11 10:13] LABS: Basophils # (A) 0.08 10*3/uL (0.00-0.10); Eosinophils # (A) 0.12 10*3/uL (0.04-0.35); Eosinophils % (A) 1.5 %; HCT 31.2 % (37.2-46.3); HGB 10.2 g/dL (12.0-15.0); Lymphocytes # (A) 0.74 10*3/uL (0.90-5.00); Lymphocytes % (A) 9.5 %; MCH 30.4 pg (27.0-32.0); MCHC 32.7 g/dL (32.0-37.0); MCV 93.1 fL (80.0-97.0); Mean Platelet Volume 9.8 fL (9.5-12.2); Monocytes # (A) 1.03 10*3/uL (0.20-1.00); Monocytes % (A) 13.2 %; Neutrophils # (A) 5.81 10*3/uL (1.80-7.70); Neutrophils % (A) 74.7 %; Platelet Count 388 10*3/uL (140-440); RBC 3.35 10*6/uL (4.10-5.20); RDW 15.3 % (11.5-14.5); WBC 7.79 10*3/uL (4.50-10.00)
[2025-03-11 10:28] LABS: Prothrombin Time 107.7 sec (10.0-12.5)
[2025-03-11] MEDS: HYDROmorphone 0.5 MG/0.5 ML SYRINGE IVP STA (10:28)
[2025-03-11 10:34] LABS: INR >10.0 (<1.2); Partial Thromboplastin Time 81.9 sec (22.0-30.0)
[2025-03-11 11:03] LABS: ALT 17 U/L (4-34); African American GFR (CKD) >90 (>60 ml/min/1.73 sqM); Anion Gap 10 mmol/L; Blood Urea Nitrogen 12 mg/dL (7-17); Calcium 9.1 mg/dL (8.4-10.2); Carbon Dioxide 23 mmol/L (22-30); Chloride 104 mmol/L (98-107); Glucose 120 mg/dL (74-99); Non-African American GFR(CKD) >90 (>60 ml/min/1.73 sqM); Sodium 137 mmol/L (137-145)
[2025-03-11 11:05] LABS: AST 55 U/L (14-36); Albumin 4.2 g/dL (3.5-5.0); Alkaline Phosphatase 186 U/L (38-126); Potassium 4.7 mmol/L (3.5-5.1); Total Bilirubin 1.8 mg/dL (0.2-1.3); Total Protein 7.1 g/dL (6.3-8.2)
[2025-03-11] MEDS: PHYTONADIONE ORAL 5 MG/5 ML ORAL.SYRG PO ONE (11:38)
--- NOTE | 2025-03-11 11:52 | CT ---
EXAMINATION TYPE: CT soft tissue neck w con DATE OF EXAM: 03/11/2025 11:35 AM COMPARISON: None CLINICAL INDICATION: Female, 69 years old with history of left side neck swelling, ecchymosis; PHH, l eft side neck swelling, ecchymosis TECHNIQUE: CT scan of the neck is performed following with IV Contrast, patient injected with 100 ml mL of Isovu e 300. Axial images are obtained, coronal and sagittal reformatted images are reviewed. CT DLP: 160.[address] CTDI: mGy Automated exposure control for dose reduction was used. FINDINGS: There are no supraclavicular lymph nodes. There is no thyroid mass or gross enlargement. The larynx including the cricoid, arytenoid and thyroid cartilages as well as the vocal cords are nor mal and symmetric. There is asymmetric enlargement/swelling of the left inferior aspect of the sternocleidomastoid muscl e. There is amorphous soft tissue density involving the left tongue base, left aryepiglottic fold and left frontal. There is no discrete abscess or discrete enhancing mass. There is marked mass effect o n the left piriform sinus and left vallecula. The parotid and submandibular glands are normal and symmetric without focal mass or gross enlargement . The great vessels of the neck are normal. There is no adenopathy. Visualized paranasal sinuses and mastoid air cells are well aerated. IMPRESSION: 1. Amorphous swelling or soft tissue mass involving the left tongue base, left aryepiglottic fold and left palatine tonsils with swelling of the inferior aspect of the left sternocleidomastoid muscle. T here is no discrete abscess and no discrete enhancing mass. . Findings consistent with either diffuse inflammatory process without abscess with neoplasm not excluded. 2. No evidence of adenopathy in the neck. [facility], , 03/11/2025 11:50 AM
[2025-03-11] MEDS ORDERED: NALOXONE 0.4 MG/ML 1 ML VIAL IV PRN (12:50)
[2025-03-11] MEDS: ACETAMINOPHEN TAB 325 MG TAB PO PRN (14:52)
[2025-03-11] MEDS ORDERED: hydrOXYzine HCL 25 MG TAB PO PRN (16:16)
--- NOTE | 2025-03-11 17:05 | P.HPIM ---
History of Present Illness H&P Date: 03/11/25 Chief Complaint: Neck pain 69-year-old female presents emergency department via EMS chief complaint of left-sided neck pain and swelling. Patient states she has had a sore throat for last few days was seen by PCP yesterday was placed on oral antibiotics. Patient states she woke up with swelling today increasing pain denies any difficulty swallowing states just sore patient states she had no trauma but there is bruising noted and she is unsure why but she states she bruises very easily secondary to being on Coumadin she states she is on Coumadin from prior strokes, mechanical aortic valve. Blood work completed in ED reveals a WBC of 7.7, hemoglobin 10.2 and platelet count of 388, sodium 137, potassium 4.7, BUN/creatinine of 12/0.62 and blood glucose of 120, PT of 107.7 with INR greater than 10 and PTT of 81.9, total bilirubin elevated at 1.8, AST of 55 and alkaline phosphatase of 186 -CT soft tissue neck showing diffuse swelling, no localized or focal abscess cannot rule out malignant process. Patient received vitamin K in ED and is being admitted for further evaluation and treatment Review of Systems REVIEW OF SYSTEMS: CONSTITUTIONAL: No fever, no malaise, no fatigue. HEENT: No recent visual problems or hearing problems. Denied any sore throat. CARDIOVASCULAR: No chest pain, orthopnea, PND, no palpitations, no syncope. PULMONARY: No shortness of breath, no cough, no hemoptysis. GASTROINTESTINAL: No diarrhea, no nausea, no vomiting, no abdominal pain. NEUROLOGICAL: No headaches, no weakness, no numbness. HEMATOLOGICAL: Denies any bleeding or petechiae. GENITOURINARY: Denies any burning micturition, frequency, or urgency. MUSCULOSKELETAL/RHEUMATOLOGICAL: Denies any joint pain, swelling, or any muscle pain. ENDOCRINE: Denies any polyuria or polydipsia. The rest of the 14-point review of systems is negative. Past Medical History Past Medical History: Atrial Fibrillation, Coronary Artery Disease (CAD), Heart Failure, COPD, CVA/TIA, Hyperlipidemia, Hypertension, Osteoarthritis (OA), Pneumonia Additional Past Medical History / Comment(s): DDD,chronic back pain, urinary incontience, pne multiple times and once being sepsic and on vent for 4 months at [place], incont of urine/wears breif. emphysema, bronchits,,per pt's daughter- issue w/ shuffling gait won't life her feet when she walk, uses cane when up, mitral valve heart disease-valve stenosis/regurg/previous valvuloplasty 2012/asd closure Last Myocardial Infarction Date:: History of Any Multi-Drug Resistant Organisms: None Reported Past Surgical History: Adenoidectomy, Cholecystectomy, Heart Catheterization, Orthopedic Surgery, Tonsillectomy Additional Past Surgical History / Comment(s): bilateral hands, ankle, D and C d/t miscarriage,previously charted- mitral valvuloplasty/asd closure, orif rt ankle, micheal carpal tunnel Past Anesthesia/Blood Transfusion Reactions: No Reported Reaction Past Psychological History: Depression Smoking Status: Current some day smoker Past Alcohol Use History: None Reported Past Drug Use History: None Reported - Past Family History Mother Family Medical History: Dementia Father Family Medical History: Congestive Heart Failure (CHF), Myocardial Infarction (MD) Sister(s) Family Medical History: No Reported History Medications and Allergies Home Medications Medication Instructions Recorded Confirmed Type Alendronate Sodium [Fosamax] 70 mg PO DAVIS 09/17/17 03/11/25 History Atorvastatin [Lipitor] 40 mg PO DAILY tab 01/28/18 03/11/25 Rx Metoprolol Tartrate [Lopressor] 25 mg PO BID tab 01/28/18 03/11/25 Rx Azelastine HCl [Astelin Nasal 2 spray EA NOSTRIL BID 03/11/25 03/11/25 History [place]] Cephalexin [Keflex] 500 mg PO Q8H 03/11/25 03/11/25 History Escitalopram [Lexapro] 10 mg PO DAILY 03/11/25 03/11/25 History Fosinopril Sodium [Monopril] 20 mg PO DAILY@89903/11/25 03/11/25 History Furosemide [Lasix] 20 mg PO DAILY@89903/11/25 03/11/25 History Metoclopramide [Reglan] 10 mg PO BID PRN 03/11/25 03/11/25 History Pantoprazole [Protonix] 40 mg PO DAILY 03/11/25 03/11/25 History Pramipexole [Mirapex] 0.25 mg PO HS 03/11/25 03/11/25 History Warfarin [Coumadin] 2 mg PO MOWEFR@0900 03/11/25 03/11/25 History Warfarin [Coumadin] 4 mg PO SUTUTHSA@0900 03/11/25 03/11/25 History hydrOXYzine HCL [Atarax] 25 mg PO TID PRN 03/11/25 03/11/25 History methocarbamoL [Robaxin] 500 mg PO Q12H 03/11/25 03/11/25 History oxyBUTYnin chloride [Ditropan] 5 mg PO BID 03/11/25 03/11/25 History oxyCODONE HCL [oxyCODONE HCL (IR)] 10 mg PO TID 03/11/25 03/11/25 History Allergies Allergy/AdvReac Type Severity Reaction Status Date / Time ciprofloxacin [From Cipro] Allergy Rash/Hives Verified 03/11/25 15:04 Sulfa (Sulfonamide Allergy Rash/Hives Verified 03/11/25 15:04 Antibiotics) tramadol [From Ultram] AdvReac Rash/Hives Verified 03/11/25 15:04 Physical Exam Vitals: Vital Signs Temp Pulse Resp BP Pulse Ox 03/11/25 14:50 71 19 152/70 97 03/11/25 13:00 70 18 98/54 98 03/11/25 12:00 72 18 98 03/11/25 11:00 99.1 F 70 18 110/70 96 03/11/25 09:28 99.4 F 70 14 113/65 98 Intake and Output 03/11/25 03/11/25 03/11/25 06:59 14:59 22:59 Other: Weight 43.091 kg General appearance: alert, in no apparent distress Head exam: Present: atraumatic, normocephalic, normal inspection Eye exam: Present: normal appearance, PERRL, EOMI. Absent: scleral icterus, conjunctival injection, periorbital swelling ENT exam: Present: mucous membranes moist, TM's normal bilaterally, normal external ear exam. Absent: normal exam, normal oropharynx (Large hematoma left side of the neck) Neck exam: Present: tenderness, full ROM. Absent: normal inspection (Ecchymosis, swelling left submandibular and left side of the neck), meningismus, lymphadenopathy Respiratory exam: Present: normal lung sounds bilaterally. Absent: respiratory distress, wheezes, rales, rhonchi, stridor Cardiovascular Exam: Present: regular rate, normal rhythm, normal heart sounds. Absent: systolic murmur, diastolic murmur, rubs, gallop, clicks GI/Abdominal exam: Present: soft, normal bowel sounds. Absent: distended, tenderness, guarding, rebound, rigid Results CBC & Chem 7: 03/11/25 10:00 03/11/25 10:00 Labs: Abnormal Lab Results - Last 24 Hours (Table) 03/11/25 03/11/25 03/11/25 Range/Units 10:00 10:00 10:00 RBC 3.35 L (4.10-5.20) 10*6/uL Hgb 10.2 L (12.0-15.0) g/dL Hct 31.2 L (37.2-46.3) % Lymphocytes # 0.74 L (0.90-5.00) 10*3/uL Monocytes # 1.03 H (0.20-1.00) 10*3/uL PT 107.7 H (10.0-12.5) sec INR >10.0 H* (<1.2) APTT 81.9 H (22.0-30.0) sec Glucose 120 H (74-99) mg/dL Total Bilirubin 1.8 H (0.2-1.3) mg/dL AST 55 H (14-36) U/L Alkaline Phosphatase 186 H (38-126) U/L Assessment and Plan Assessment: 1. Coumadin induced coagulopathy - Patient takes Coumadin for mechanical aortic valve and history of prior CVA - Patient received vitamin K in ED; will monitor PT/INR closely - Coumadin has been placed on hold - Consult cardiology for recommendations on anticoagulation 2. Neck hematoma; related to Coumadin toxicity; no signs of compression or respiratory distress; will continue to monitor 3. Acute blood loss anemia; monitor H&H every 6 hours; we will transfuse if hemoglobin is less than 7 4. Elevated liver enzymes; will repeat liver enzymes with plans to order hepatic ultrasound if liver enzymes continue to trend up 5. Hypertension; lisinopril 20 mg daily; metoprolol 25 mg twice daily 6. Hyperlipidemia; Lipitor 40 mg p.o. nightly 7. CAD/CHF; stable; continue with lisinopril, metoprolol, statin therapy; continue with home dose of Lasix 8. History of atrial fibrillation; patient takes metoprolol and Coumadin; Coumadin placed on hold due to coagulopathy and hematoma 9. Anxiety/depression; Lexapro 10 mg daily DVT prophylaxis; SCDs only given coagulopathy CODE STATUS; full code
[2025-03-11 19:14] LABS: INR 3.9 (<1.2)
[2025-03-11 19:15] LABS: Prothrombin Time 38.6 sec (10.0-12.5)
[2025-03-11] MEDS: METOPROLOL TARTRATE 25 MG TAB PO SCH (21:00)
[2025-03-11] MEDS: PRAMIPEXOLE 0.25 MG TAB PO SCH (21:02)
[2025-03-11] MEDS: oxyBUTYnin chloride 5 MG TAB PO SCH (21:02)
[2025-03-11] MEDS: methocarbamoL 500 MG TAB PO SCH (21:03)
[2025-03-12] MEDS: PANTOPRAZOLE 40 MG TABLET PO SCH (04:04)
[2025-03-12 08:10] LABS: Basophils # (A) 0.09 10*3/uL (0.00-0.10); Basophils % (A) 1.4 %; Eosinophils # (A) 0.24 10*3/uL (0.04-0.35); Eosinophils % (A) 3.6 %; HCT 29.4 % (37.2-46.3); HGB 9.4 g/dL (12.0-15.0); Lymphocytes % (A) 18.1 %; MCH 30.6 pg (27.0-32.0); MCV 95.8 fL (80.0-97.0); Mean Platelet Volume 10.1 fL (9.5-12.2); Monocytes # (A) 0.79 10*3/uL (0.20-1.00); Monocytes % (A) 11.9 %; Neutrophils # (A) 4.29 10*3/uL (1.80-7.70); Neutrophils % (A) 64.8 %; Platelet Count 361 10*3/uL (140-440); RBC 3.07 10*6/uL (4.10-5.20); RDW 15.6 % (11.5-14.5); WBC 6.62 10*3/uL (4.50-10.00)
[2025-03-12 08:18] LABS: INR 1.2 (<1.2); Prothrombin Time 12.8 sec (10.0-12.5)
[2025-03-12 08:28] LABS: ALT 13 U/L (4-34); AST 27 U/L (14-36); African American GFR (CKD) >90 (>60 ml/min/1.73 sqM); Albumin 3.5 g/dL (3.5-5.0); Albumin/Globulin Ratio 1.3; Alkaline Phosphatase 156 U/L (38-126); Anion Gap 7 mmol/L; Blood Urea Nitrogen 11 mg/dL (7-17); Calcium 9.2 mg/dL (8.4-10.2); Carbon Dioxide 27 mmol/L (22-30); Chloride 106 mmol/L (98-107); Globulin 2.6 g/dL; Glucose 100 mg/dL (74-99); Non-African American GFR(CKD) >90 (>60 ml/min/1.73 sqM); Sodium 140 mmol/L (137-145); Total Bilirubin 1.2 mg/dL (0.2-1.3); Total Protein 6.1 g/dL (6.3-8.2)
[2025-03-12] MEDS: FUROSEMIDE 20 MG TAB PO SCH (09:37)
[2025-03-12] MEDS: ATORVASTATIN 40 MG TAB PO SCH (09:37)
[2025-03-12] MEDS: lisinopriL 20 MG TAB PO SCH (09:37)
[2025-03-12] MEDS: ESCITALOPRAM 10 MG TAB PO SCH (09:56)
[2025-03-12 11:35] LABS: Basophils % (A) 1.4 %; Eosinophils # (A) 0.23 10*3/uL (0.04-0.35); Eosinophils % (A) 3.1 %; HCT 30.5 % (37.2-46.3); HGB 9.8 g/dL (12.0-15.0); Lymphocytes # (A) 0.87 10*3/uL (0.90-5.00); Lymphocytes % (A) 11.9 %; MCH 30.5 pg (27.0-32.0); MCHC 32.1 g/dL (32.0-37.0); Mean Platelet Volume 9.8 fL (9.5-12.2); Monocytes # (A) 0.85 10*3/uL (0.20-1.00); Monocytes % (A) 11.6 %; Neutrophils # (A) 5.24 10*3/uL (1.80-7.70); Neutrophils % (A) 71.6 %; Platelet Count 365 10*3/uL (140-440); RBC 3.21 10*6/uL (4.10-5.20); RDW 15.6 % (11.5-14.5); WBC 7.32 10*3/uL (4.50-10.00)
[2025-03-12] MEDS: HEPARIN SOD,PORK IN 0.45% NACL 25,000 UNIT in 0.45% NACL 1 250ML.BAG IV SCH (16:23)
[2025-03-12 17:00] LABS: Basophils # (A) 0.08 10*3/uL (0.00-0.10); Basophils # (A) 0.09 10*3/uL (0.00-0.10); Basophils % (A) 1.2 %; Basophils % (A) 1.3 %; Eosinophils # (A) 0.22 10*3/uL (0.04-0.35); Eosinophils % (A) 3.2 %; HCT 29.7 % (37.2-46.3); HCT 30.1 % (37.2-46.3); HGB 9.5 g/dL (12.0-15.0); HGB 9.6 g/dL (12.0-15.0); Lymphocytes # (A) 1.03 10*3/uL (0.90-5.00); Lymphocytes # (A) 1.07 10*3/uL (0.90-5.00); Lymphocytes % (A) 15.5 %; MCH 30.6 pg (27.0-32.0); MCH 30.7 pg (27.0-32.0); MCHC 31.9 g/dL (32.0-37.0); MCV 95.8 fL (80.0-97.0); MCV 96.2 fL (80.0-97.0); Mean Platelet Volume 10.2 fL (9.5-12.2); Mean Platelet Volume 9.7 fL (9.5-12.2); Monocytes % (A) 10.1 %; Monocytes % (A) 10.2 %; Neutrophils % (A) 69.6 %; Neutrophils % (A) 69.9 %; Platelet Count 358 10*3/uL (140-440); Platelet Count 380 10*3/uL (140-440); RBC 3.13 10*6/uL (4.10-5.20); RDW 15.6 % (11.5-14.5); RDW 15.7 % (11.5-14.5); WBC 6.87 10*3/uL (4.50-10.00)
[2025-03-12 17:18] LABS: INR 1.1 (<1.2); Partial Thromboplastin Time 27.9 sec (22.0-30.0); Prothrombin Time 11.6 sec (10.0-12.5)
--- NOTE | 2025-03-12 18:08 | XR ---
EXAMINATION TYPE: XR chest 2V DATE OF EXAM: 03/12/2025 5:57 PM COMPARISON: Chest 03/02/2025. CLINICAL INDICATION: Female, 69 years old with history of pneumonia; LOCATED [facility]IN [facility] TECHNIQUE: XR chest 2V Frontal and lateral views of the chest. FINDINGS: Lungs/Pleura: There is no evidence of pleural effusion, focal consolidation, or pneumothorax. Pulmonary vascularity: Unremarkable. Heart/mediastinum: Cardiomediastinal silhouette is unremarkable. Musculoskeletal: No acute osseous pathology. Other findings: None Lines/Tubes: Prior valvoplasty procedures. Left chest wall cardiac pacemaker device. Left atrial appendage occlusi on device. Median sternotomy wires. IMPRESSION: No acute cardiopulmonary disease/process. [facility], , 03/12/2025 6:06 PM
--- NOTE | 2025-03-12 18:14 | P.PN ---
Subjective Progress Note Date: 03/12/25 69-year-old female presents emergency department via EMS chief complaint of left-sided neck pain and swelling. Patient states she has had a sore throat for last few days was seen by PCP yesterday was placed on oral antibiotics. Patient states she woke up with swelling today increasing pain denies any difficulty swallowing states just sore patient states she had no trauma but there is bruising noted and she is unsure why but she states she bruises very easily secondary to being on Coumadin she states she is on Coumadin from prior strokes, mechanical aortic valve. Blood work completed in ED reveals a WBC of 7.7, hemoglobin 10.2 and platelet count of 388, sodium 137, potassium 4.7, BUN/creatinine of 12/0.62 and blood glucose of 120, PT of 107.7 with INR greater than 10 and PTT of 81.9, total bili farley elevated at 1.8, AST of 55 and alkaline phosphatase of 186 -CT soft tissue neck showing diffuse swelling, no localized or focal abscess cannot rule out malignant process. Patient received vitamin K in ED and is being admitted for further evaluation and treatment --INR at 1.2 this morning; globin remains stable; patient remains off of Coumadin - Will continue to monitor H&H closely for every 24 hours - Await cardiology evaluation and recommendations on anticoagulation Objective - Vital Signs Vital signs: Vital Signs Temp 98.1 F 03/12/25 07:16 Pulse 67 03/12/25 07:16 Resp 17 03/12/25 07:16 BP 99/63 03/12/25 07:16 Pulse Ox 97 03/12/25 07:16 FiO2 Intake & Output 03/11/25 03/12/25 03/12/25 18:59 06:59 18:59 Weight 43.091 kg 43.091 kg Other: # Voids 1 - Exam General appearance: alert, in no apparent distress Head exam: Present: atraumatic, normocephalic, normal inspection Eye exam: Present: normal appearance, PERRL, EOMI. Absent: scleral icterus, conjunctival injection, periorbital swelling ENT exam: Present: mucous membranes moist, TM's normal bilaterally, normal external ear exam. Absent: normal exam, normal oropharynx (Large hematoma left side of the neck) Neck exam: Present: tenderness, full ROM. Absent: normal inspection (Ecchymosis, swelling left submandibular and left side of the neck), m eningismus, lymphadenopathy Respiratory exam: Present: normal lung sounds bilaterally. Absent: respiratory distress, wheezes, rales, rhonchi, stridor Cardiovascular Exam: Present: regular rate, normal rhythm, normal heart sounds. Absent: systolic murmur, diastolic murmur, rubs, gallop, clicks GI/Abdominal exam: Present: soft, normal bowel sounds. Absent: distended, tenderness, guarding, rebound, rigid - Labs CBC & Chem 7: 03/12/25 16:35 03/12/25 07:35 Labs: Abnormal Lab Results - Last 24 Hours (Table) 03/11/25 03/12/25 03/12/25 Range/Units 17:59 07:35 07:35 RBC (4.10-5.20) 10*6/uL Hgb (12.0-15.0) g/dL Hct (37.2-46.3) % RDW (11.5-14.5) % Lymphocytes # (0.90-5.00) 10*3/uL PT 38.6 H 12.8 H (10.0-12.5) sec INR 3.9 H 1.2 H (<1.2) Glucose 100 H (74-99) mg/dL Alkaline Phosphatase 156 H (38-126) U/L Total Protein 6.1 L (6.3-8.2) g/dL 03/12/25 03/12/25 Range/Units 07:35 11:13 RBC 3.07 L 3.21 L (4.10-5.20) 10*6/uL Hgb 9.4 L 9.8 L (12.0-15.0) g/dL Hct 29.4 L 30.5 L (37.2-46.3) % RDW 15.6 H 15.6 H (11.5-14.5) % Lymphocytes # 0.87 L (0.90-5.00) 10*3/uL PT (10.0-12.5) sec INR (<1.2) Glucose (74-99) mg/dL Alkaline Phosphatase (38-126) U/L Total Protein (6.3-8.2) g/dL Assessment and Plan Assessment: 1. Coumadin induced coagulopathy - Patient takes Coumadin for mechanical aortic valve and history of prior CVA - Patient received vitamin K in ED; will monitor PT/INR closely - Coumadin has been placed on hold - Consult cardiology for recommendations on anticoagulation 2. Neck hematoma; related to Coumadin toxicity; no signs of compression or respiratory distress; will continue to monitor 3. Acute blood loss anemia; monitor H&H every 6 hours; we will transfuse if hemoglobin is less than 7 4. Elevated liver enzymes; will repeat liver enzymes with plans to order hepatic ultrasound if liver enzymes continue to trend up 5. Hypertension; lisinopril 20 mg daily; metoprolol 25 mg twice daily 6. Hyperlipidemia; Lipitor 40 mg p.o. nightly 7. CAD/CHF; stable; continue with lisinopril, metoprolol, statin therapy; continue with home dose of Lasix 8. History of atrial fibrillation; patient takes metoprolol and Coumadin; Coumadin placed on hold due to coagulopathy and hematoma 9. Anxiety/depression; Lexapro 10 mg daily DVT prophylaxis; SCDs only given coagulopathy CODE STATUS; full code
--- NOTE | 2025-03-12 19:39 | P.CRDCN ---
History of Present Illness Consult date: 03/12/25 History of present illness: HISTORY OF PRESENTING ILLNESS: 69-year-old presented because of left leg hematoma and swelling. Patient reports that she woke up with the swelling with increased pain but denied any difficulty swallowing. Patient does report that couple days ago she was complaining of some sore throat for which she got antibiotics from PCP. Recently she also had UTI for which she was treated with antibiotics. She does have a history of mechanical aortic valve for which she is on warfarin therapy. On admission she was noted to have supratherapeutic INR with INR of more than 10 along with concerns of spontaneous hematoma in left neck. CT head showed blood collection inferior aspect of left scalp no Cleta mastoid muscle. It did not appear to affect deeper structures. Chest x-ray did not show any congestion or consolidation. REVIEW OF SYSTEMS: 14 point review of system is negative except what is mentioned above in HPI. PHYSICAL EXAMINATION: Neck: 1 noticed on left neck, soft to touch. Lungs: Clear to auscultation. Heart: Regular rate and rhythm, crisp mechanical S2, mild systolic murmur Abdomen: Soft nontender, positive bowel sounds. Extremities: No edema, intact distal pulses. Neuro: Alert, oritented, no focal deficits. Detailed neuro exam was not performed. ASSESSMENT: # Supratherapeutic INR likely because of recent antibiotic use for UTI # Spontaneous left neck hematoma from supratherapeutic INR, currently resolving # History of mechanical aortic valve # Hypertension, dyslipidemia # History of PPM PLAN: Hold warfarin. Start IV heparin drip. If no worsening hematoma on IV heparin drip and no further drop in hemoglobin, start warfarin tomorrow Obtain updated echocardiogram to look at aortic valve Continue Lipitor, metoprolol 25 twice daily, lisinopril 20 Review cardiology office note on Thursday Vj Tijerina MD, FACC, RPVI Thank you for allowing [facility] to participate in this patient's care. Feel free to reach out in case of any followup questions. Past Medical History Past Medical History: Atrial Fibrillation, Coronary Artery Disease (CAD), Heart Failure, COPD, CVA/TIA, Hyperlipidemia, Hypertension, Osteoarthritis (OA), Pneumonia Additional Past Medical History / Comment(s): DDD,chronic back pain, urinary incontience, pne multiple times and once being sepsic and on vent for 4 months at [facility], incont of urine/wears breif. emphysema, bronchits,,per pt's daughter- issue w/ shuffling gait won't life her feet when she walk, uses cane and walker when up, mitral valve heart disease-valve stenosis/regurg/previous valvuloplasty 2012/asd closure Last Myocardial Infarction Date:: History of Any Multi-Drug Resistant Organisms: None Reported Past Surgical History: Adenoidectomy, Cholecystectomy, Heart Catheterization, Orthopedic Surgery, Pacemaker, Tonsillectomy Additional Past Surgical History / Comment(s): bilateral hands, ankle, D and C d/t miscarriage,previously charted- mitral valvuloplasty/asd closure, orif rt ankle, micheal carpal tunnel Past Anesthesia/Blood Transfusion Reactions: No Reported Reaction Type of Cardiac Device: Permanent Pacemaker Device Placement Date:: 2018 Past Psychological History: Depression Additional Psychological History / Comment(s): has had some depression since her son . Smoking Status: Current some day smoker Past Alcohol Use History: Occasional Additional Past Alcohol Use History / Comment(s): started smoking 1971, smokes 1.5 packs /day. Past Drug Use History: None Reported - Past Family History Mother Family Medical History: Dementia Father Family Medical History: Congestive Heart Failure (CHF), Myocardial Infarction ([place]) Sister(s) Family Medical History: No Reported History Medications and Allergies Home Medications Medication Instructions Recorded Confirmed Type Alendronate Sodium [Fosamax] 70 mg PO DAVIS 09/17/17 03/11/25 History Atorvastatin [Lipitor] 40 mg PO DAILY tab 01/28/18 03/11/25 Rx Metoprolol Tartrate [Lopressor] 25 mg PO BID tab 01/28/18 03/11/25 Rx Azelastine HCl [Astelin Nasal 2 spray EA NOSTRIL BID 03/11/25 03/11/25 History [place]] Cephalexin [Keflex] 500 mg PO Q8H 03/11/25 03/11/25 History Escitalopram [Lexapro] 10 mg PO DAILY 03/11/25 03/11/25 History Fosinopril Sodium [Monopril] 20 mg PO DAILY@89903/11/25 03/11/25 History Furosemide [Lasix] 20 mg PO DAILY@89903/11/25 03/11/25 History Metoclopramide [Reglan] 10 mg PO BID PRN 03/11/25 03/11/25 History Pantoprazole [Protonix] 40 mg PO DAILY 03/11/25 03/11/25 History Pramipexole [Mirapex] 0.25 mg PO HS 03/11/25 03/11/25 History Warfarin [Coumadin] 2 mg PO MOWEFR@0900 03/11/25 03/11/25 History Warfarin [Coumadin] 4 mg PO SUTUTHSA@0903/11/25 03/11/25 History hydrOXYzine HCL [Atarax] 25 mg PO TID PRN 03/11/25 03/11/25 History methocarbamoL [Robaxin] 500 mg PO Q12H 03/11/25 03/11/25 History oxyBUTYnin chloride [Ditropan] 5 mg PO BID 03/11/25 03/11/25 History oxyCODONE HCL [oxyCODONE HCL (IR)] 10 mg PO TID 03/11/25 03/11/25 History Allergies Allergy/AdvReac Type Severity Reaction Status Date / Time ciprofloxacin [From Cipro] Allergy Rash/Hives Verified 03/11/25 15:04 Sulfa (Sulfonamide Allergy Rash/Hives Verified 03/11/25 15:04 Antibiotics) tramadol [From Ultram] AdvReac Rash/Hives Verified 03/11/25 15:04 Physical Exam Vitals: Vital Signs Temp Pulse Pulse Resp BP BP Pulse Ox 03/12/25 14:53 98.1 F 70 17 94/62 96 03/12/25 07:16 98.1 F 67 17 99/63 97 03/12/25 01:55 83 03/12/25 01:31 98.1 F 83 17 100/69 95 03/11/25 23:19 97.8 F 75 18 103/65 94 L 03/11/25 22:46 98.9 F 70 18 143/45 97 03/11/25 21:03 99.0 F 76 20 136/70 96 Intake and Output 03/12/25 03/12/25 03/12/25 06:59 14:59 22:59 Other: # Voids 1 3 Weight 43.091 kg Results 03/12/25 16:35 03/12/25 07:35 Cardiac Enzymes 03/12/25 Range/Units 07:35 AST 27 (14-36) U/L Coagulation 03/12/25 03/12/25 Range/Units 07:35 16:35 PT 12.8 H 11.6 (10.0-12.5) sec APTT 27.9 (22.0-30.0) sec CBC 03/12/25 03/12/25 03/12/25 Range/Units 07:35 11:13 16:35 WBC 6.62 7.32 6.87 (4.50-10.00) 10*3/uL RBC 3.07 L 3.21 L 3.13 L (4.10-5.20) 10*6/uL Hgb 9.4 L 9.8 L 9.6 L (12.0-15.0) g/dL Hct 29.4 L 30.5 L 30.1 L (37.2-46.3) % Plt Count 361 365 380 (140-440) 10*3/uL 03/12/25 Range/Units 16:35 WBC 6.90 (4.50-10.00) 10*3/uL RBC 3.10 L (4.10-5.20) 10*6/uL Hgb 9.5 L (12.0-15.0) g/dL Hct 29.7 L (37.2-46.3) % Plt Count 358 (140-440) 10*3/uL Comprehensive Metabolic Panel 03/12/25 Range/Units 07:35 Sodium 140 (137-145) mmol/L Potassium 4.0 (3.5-5.1) mmol/L Chloride 106 (98-107) mmol/L Carbon Dioxide 27 (22-30) mmol/L BUN 11 (7-17) mg/dL Creatinine 0.65 (0.52-1.04) mg/dL Glucose 100 H (74-99) mg/dL Calcium 9.2 (8.4-10.2) mg/dL Unconjugated Bilirubin 1.0 (0.0-1.1) mg/dL AST 27 (14-36) U/L ALT 13 (4-34) U/L Alkaline Phosphatase 156 H (38-126) U/L Total Protein 6.1 L (6.3-8.2) g/dL Albumin 3.5 (3.5-5.0) g/dL Current Medications Generic Name Dose Route Start Last Admin Trade Name Freq PRN Reason Stop Dose Admin Acetaminophen 650 mg 03/11/25 12:50 03/11/25 14:52 Acetaminophen Tab 325 Mg Tab PO 650 mg Q6HR PRN Administration Mild Pain or Fever > 100.5 Atorvastatin Calcium 40 mg 03/12/25 09:00 03/12/25 09:37 Atorvastatin 40 Mg Tab PO 40 mg DAILY JUAN A Administration Escitalopram Oxalate 10 mg 03/12/25 09:00 03/12/25 09:56 Escitalopram 10 Mg Tab PO 10 mg DAILY JUAN A Administration Furosemide 20 mg 03/12/25 09:00 03/12/25 09:37 Furosemide 20 Mg Tab PO 20 mg DAILY@0900 JUAN A Administration Heparin Sodium (Porcine) 0 unit 03/12/25 15:34 Heparin Sodium 1,000 Un/Ml (10ml Vl) IV PER PROTOCOL PRN Low PTT Protocol Hydroxyzine HCl 25 mg 03/11/25 16:16 Hydroxyzine Hcl 25 Mg Tab PO TID PRN Itching Heparin Sodium/Sodium Chloride 250 mls @ 5.171 mls/hr 03/12/25 15:45 03/12/25 16:23 25,000 unit/ Sodium Chloride IV 12 units/kg/hr .Q24H JUAN A 5.171 mls/hr Administration Protocol 12 UNITS/KG/HR Lisinopril 20 mg 03/12/25 09:00 03/12/25 09:37 Lisinopril 20 Mg Tab PO 20 mg DAILY@0900 JUAN A Administration Methocarbamol 500 mg 03/11/25 21:00 03/12/25 09:37 Methocarbamol 500 Mg Tab PO 500 mg Q12HR JUAN A Administration Metoprolol Tartrate 25 mg 03/11/25 21:00 03/12/25 09:37 Metoprolol Tartrate 25 Mg Tab PO 25 mg BID JUAN A Administration Naloxone HCl 0.2 mg 03/11/25 12:50 Naloxone 0.4 Mg/Ml 1 Ml Vial IV Q2M PRN Opioid Reversal Oxybutynin Chloride 5 mg 03/11/25 21:00 03/12/25 09:38 Oxybutynin Chloride 5 Mg Tab PO 5 mg BID JUAN A Administration Oxycodone HCl 10 mg 03/11/25 22:00 03/12/25 11:39 Oxycodone Hcl 5 Mg Tab PO 10 mg TID JUAN A Administration Pantoprazole Sodium 40 mg 03/12/25 07:30 03/12/25 04:04 Pantoprazole 40 Mg Tablet PO 40 mg [id number] JUAN A Administration Pramipexole Dihydrochloride 0.25 mg 03/11/25 21:00 03/11/25 21:02 Pramipexole 0.25 Mg Tab PO 0.25 mg HS JUAN A Administration Intake and Output 03/12/25 03/12/25 03/12/25 06:59 14:59 22:59 Other: # Voids 1 3 Weight 43.091 kg 03/12/25 16:35 03/12/25 07:35
[2025-03-12] MEDS: NICOTINE 21MG/24HR PATCH TRANSDERM SCH (23:19)
[2025-03-12] MEDS: HEPARIN SODIUM 1,000 UN/ML (10ML VL) IV PRN (23:42)
[2025-03-13 07:17] LABS: Partial Thromboplastin Time 32.6 sec (22.0-30.0); Prothrombin Time 11.2 sec (10.0-12.5)
[2025-03-13 10:18] LABS: Basophils % (A) 1.2 %; Eosinophils # (A) 0.37 X 10*3/uL (0.04-0.35); Eosinophils % (A) 4.5 %; HCT 31.4 % (37.2-46.3); HGB 9.8 g/dL (12.0-15.0); Lymphocytes # (A) 1.67 X 10*3/uL (0.90-5.00); Lymphocytes % (A) 20.2 %; MCH 30.2 pg (27.0-32.0); MCHC 31.2 g/dL (32.0-37.0); MCV 96.6 FL (80.0-97.0); Mean Platelet Volume 10.7 FL (9.5-12.2); Monocytes # (A) 0.96 X 10*3/uL (0.20-1.00); Monocytes % (A) 11.6 %; NRBC Per 100 WBC 0 X 10*3/uL (0.00-0.01); Neutrophils # (A) 5.13 X 10*3/uL (1.80-7.70); Neutrophils % (A) 62.1 %; Platelet Count 427 X 10*3/uL (140-440); RBC 3.25 X 10*6/uL (4.10-5.20); RDW 15.6 % (11.5-14.5); WBC 8.26 X 10*3/uL (4.50-10.00)
--- NOTE | 2025-03-13 10:58 | P.PN ---
Subjective HISTORY OF PRESENTING ILLNESS: 69-year-old presented because of left leg hematoma and swelling. Patient reports that she woke up with the swelling with increased pain but denied any difficulty swallowing. Patient does report that couple days ago she was complaining of some sore throat for which she got antibiotics from PCP. Recently she also had UTI for which she was treated with antibiotics. She does have a history of mechanical aortic valve for which she is on warfarin therapy. On admission she was noted to have supratherapeutic INR with INR of more than 10 along with concerns of spontaneous hematoma in left neck. CT head showed blood collection inferior aspect of left scalp no Cleta mastoid muscle. It did not appear to affect deeper structures. Chest x-ray did not show any congestion or consolidation. 03/13/2025 Patient seen and examined resting comfortably in bed in no acute distress. Blood pressure 83/55 heart rate 70 afebrile maintaining oxygen saturation on room air. Laboratory data reviewed, hemoglobin 9.8, platelets 427, INR 1. PHYSICAL EXAMINATION: Neck: Left neck soft tissue swelling Lungs: Clear to auscultation. Heart: Regular rate and rhythm, crisp mechanical S2, mild systolic murmur Abdomen: Soft nontender, positive bowel sounds. Extremities: No edema, intact distal pulses. Neuro: Alert, oritented, no focal deficits. Detailed neuro exam was not performed. ASSESSMENT: Supratherapeutic INR likely because of recent antibiotic use for UTI Spontaneous left neck hematoma from supratherapeutic INR, currently resolving History of mechanical mitral valve and tricuspid valve repair Hypertension Dyslipidemia History of PPM PLAN: Resume warfarin 3 mg daily starting today, continue heparin infusion until INR is therapeutic. Discontinue lisinopril for now her secondary to hypotension. Parameters added to metoprolol. Echocardiogram has been ordered and will be reviewed. Medical management of abnormal CT. Further recommendations to follow based upon clinical course. Nurse Practitioner note has been reviewed, I agree with a documented findings and plan of care. Patient was seen and examined. Objective - Vital Signs Vital signs: Vital Signs Temp 98.4 F 03/13/25 05:45 Pulse 70 03/13/25 09:00 Resp 18 03/13/25 05:45 BP 83/55 03/13/25 09:00 Pulse Ox 94 L 03/13/25 05:45 FiO2 Intake & Output 03/12/25 03/13/25 03/13/25 18:59 06:59 18:59 Intake Total 38.265 76.535 Balance 38.265 76.535 Intake: Intake, IV Titration 38.265 76.535 Amount Heparin Sod,Pork in 0.45% 38.265 76.535 NaCl 25,000 unit In 0.45 % NaCl 1 250ml.bag @ 12 UNITS/KG/HR 5.171 mls/hr IV .Q24H JUAN A Rx#: [id number] Other: # Voids 3 2 - Labs CBC & Chem 7: 03/13/25 06:47 03/12/25 07:35 Labs: Abnormal Lab Results - Last 24 Hours (Table) 03/12/25 03/12/25 03/12/25 Range/Units 11:13 16:35 16:35 RBC 3.21 L 3.13 L 3.10 L (4.10-5.20) 10*6/uL Hgb 9.8 L 9.6 L 9.5 L (12.0-15.0) g/dL Hct 30.5 L 30.1 L 29.7 L (37.2-46.3) % MCHC 31.9 L (32.0-37.0) g/dL RDW 15.6 H 15.7 H 15.6 H (11.5-14.5) % Lymphocytes # 0.87 L (0.90-5.00) 10*3/uL Eosinophils # (0.04-0.35) X 10*3/uL APTT (22.0-30.0) sec 03/13/25 03/13/25 Range/Units 06:47 06:47 RBC 3.25 L (4.10-5.20) 10*6/uL Hgb 9.8 L (12.0-15.0) g/dL Hct 31.4 L (37.2-46.3) % MCHC 31.2 L (32.0-37.0) g/dL RDW 15.6 H (11.5-14.5) % Lymphocytes # (0.90-5.00) 10*3/uL Eosinophils # 0.37 H (0.04-0.35) X 10*3/uL APTT 32.6 H (22.0-30.0) sec
[2025-03-13] MEDS: WARFARIN 3 MG TAB PO SCH (12:15)
[2025-03-13 16:11] VITALS: BMI 14.8
--- NOTE | 2025-03-14 00:03 | P.PN ---
Subjective 69-year-old female presents emergency department via EMS chief complaint of left-sided neck pain and swelling. Patient states she has had a sore throat for last few days was seen by PCP yesterday was placed on oral antibiotics. Patient states she woke up with swelling today increasing pain denies any difficulty swallowing states just sore patient states she had no trauma but there is bruising noted and she is unsure why but she states she bruises very easily secondary to being on Coumadin she states she is on Coumadin from prior strokes, mechanical aortic valve. Blood work completed in ED reveals a WBC of 7.7, hemoglobin 10.2 and platelet count of 388, sodium 137, potassium 4.7, BUN/creatinine of 12/0.62 and blood glucose of 120, PT of 107.7 with INR greater than 10 and PTT of 81.9, total bilirubin elevated at 1.8, AST of 55 and alkaline phosphatase of 186 -CT soft tissue neck showing diffuse swelling, no localized or focal abscess cannot rule out malignant process. Patient received vitamin K in ED and is being admitted for further evaluation and treatment --INR at 1.2 this morning; globin remains stable; patient remains off of Coumadin - Will continue to monitor H&H closely for every 24 hours - Await cardiology evaluation and recommendations on anticoagulation 03/13 Patient complains from neck pain about 6/10 in severity. Swelling on the left side Also from right hip pain about 9/10 in severity. She has severe osteoarthritis and plan to undergo arthroplasty with her orthopedic surgeon on the of the March Patient states that her swelling in her left leg decreased by about 80% Patient states that all started with some food stuck in her left tonsil area she has to use her finger to dislodge it, she succeeded but she describes her buccal cavity this is followed by infection, she followed up with her PCP Dr. Egan who prescribed her antibiotics for both suspected infected in the tonsillar area and UTI. Her infection improved but there was drug-drug interaction and warfarin martyr than 10 and she replied and her left tonsillar area following her trauma as above. Patient currently placed on heparin drip as blood thinner challenge and if remains stable may resume warfarin. INR is 1.1 today. Received 3 mg of Coumadin tonight Patient echocardiogram is pending Objective - Vital Signs Vital signs: Vital Signs Temp 98.9 F 03/13/25 19:02 Pulse 80 03/13/25 19:02 Resp 17 03/13/25 19:02 BP 96/60 03/13/25 19:02 Pulse Ox 96 03/13/25 19:02 FiO2 Intake & Output 03/13/25 03/13/25 03/14/25 06:59 18:59 06:59 Intake Total 38.265 260.619 64.579 Balance 38.265 260.619 64.579 Weight 43.091 kg Intake: Intake, IV Titration 38.265 142.619 64.579 Amount Heparin Sod,Pork in 0.45% 38.265 142.619 64.579 NaCl 25,000 unit In 0.45 % NaCl 1 250ml.bag @ 12 UNITS/KG/HR 5.171 mls/hr IV .Q24H [facility] Rx#: [id number] Oral 118 Other: Voiding Method Toilet # Voids 2 2 2 # Bowel Movements 1 - Exam GENERAL: The patient is alert and oriented x3, not in any acute distress. Well developed, well nourished. HEENT: Pupils are round and equally reacting to light. EOMI. No scleral icterus. No conjunctival pallor. Normocephalic, atraumatic. No pharyngeal erythema. No thyromegaly. - Mild left swelling around and below the left angle of the mandible CARDIOVASCULAR: S1 and S2 present. No murmurs, rubs, or gallops. PULMONARY: Chest is clear to auscultation, no wheezing , no crackles. ABDOMEN: Soft, nontender, nondistended, normoactive bowel sounds. No palpable organomegaly. MUSCULOSKELETAL: No joint swelling or deformity. EXTREMITIES: No cyanosis, clubbing, or pedal edema. NEUROLOGICAL: Gross neurological examination did not reveal any focal deficits. SKIN: No rashes. no petechiae. - Labs CBC & Chem 7: 03/13/25 06:47 03/12/25 07:35 Labs: Abnormal Lab Results - Last 24 Hours (Table) 03/13/25 03/13/25 03/13/25 Range/Units 06:47 06:47 15:08 RBC 3.25 L (4.10-5.20) X 10*6/uL Hgb 9.8 L (12.0-15.0) g/dL Hct 31.4 L (37.2-46.3) % MCHC 31.2 L (32.0-37.0) g/dL RDW 15.6 H (11.5-14.5) % Eosinophils # 0.37 H (0.04-0.35) X 10*3/uL APTT 32.6 H 40.9 H (22.0-30.0) sec Assessment and Plan Assessment: 1. Coumadin induced coagulopathy - Patient takes Coumadin for mechanical aortic valve and history of prior CVA - Patient received vitamin K in ED; will monitor PT/INR closely - Coumadin has been placed on hold - Consult cardiology for recommendations on anticoagulation 2. Neck hematoma; related to Coumadin toxicity; no signs of compression or respiratory distress; will continue to monitor 3. Acute blood loss anemia; monitor H&H every 6 hours; we will transfuse if hemoglobin is less than 7 4. Elevated liver enzymes; will repeat liver enzymes with plans to order hepatic ultrasound if liver enzymes continue to trend up 5. Hypertension; lisinopril 20 mg daily; metoprolol 25 mg twice daily 6. Hyperlipidemia; Lipitor 40 mg p.o. nightly 7. CAD/CHF; stable; continue with lisinopril, metoprolol, statin therapy; continue with home dose of Lasix 8. History of atrial fibrillation; patient takes metoprolol and Coumadin; Coumadin placed on hold due to coagulopathy and hematoma 9. Anxiety/depression; Lexapro 10 mg daily DVT prophylaxis; SCDs only given coagulopathy CODE STATUS; full code
[2025-03-14 08:26] LABS: INR 1.2 (<1.2); Partial Thromboplastin Time 33.5 sec (22.0-30.0); Prothrombin Time 12.8 sec (10.0-12.5)
--- NOTE | 2025-03-14 10:56 | CA ---
Transthoracic Echo Report Name: Vinicio Lopez Age: 69 Gender: F : 1955 Exam Date: 03/13/2025 13:08 Exam Location: [facility] Ht (in): 67 Wt (lb): 95 Ordering Physician: Vj Tijerina MD ([id number]) Attending/Referring Phys: Industrial Engineering Technologist Aline Jacobsen, [id number] Procedure CPT: Indications: mechanical aortic valve Cardiac Hx: MVR, MA, A-fib, COPD, CVA/TIA, HTN, Pacemaker Technical Quality: Good Contrast 1: Total Dose (mL): Contrast 2: Total Dose (mL): MEASUREMENTS (Male / Female) Normal Values 2D ECHO LV Diastolic Diameter PLAX 4.7 cm 4.2 - 5.9 / 3.9 - 5.3 cm LV Systolic Diameter PLAX 3.8 cm IVS Diastolic Thickness 1.0 cm 0.6 - 1.0 / 0.6 - 0.9 cm LVPW Diastolic Thickness 0.9 cm 0.6 - 1.0 / 0.6 - 0.9 cm LV Relative Wall Thickness 0.4 RV Internal Dim ED PLAX 3.0 cm LVOT Diameter 1.3 cm LA Systolic Diameter LX 5.7 cm 3.0 - 4.0 / 2.7 - 3.8 cm LV Diastolic Volume MOD BP 110.0 cm??? 67 - 155 / 56 - 104 cm??? LV Systolic Volume MOD BP 61.5 cm??? 22 - 58 / 19 - 49 cm??? LV Ejection Fraction MOD BP 44.1 % >= 55 % LV Cardiac Index MOD BP 2480.7 cm???/min???m??? LV Diastolic Volume MOD 4C 107.6 cm??? LV Systolic Volume MOD 4C 57.6 cm??? LV Ejection Fraction MOD 4C 46.4 % LV Cardiac Index MOD 4C 2556.2 cm???/min???m??? LV Diastolic Length 4C 6.2 cm LV Systolic Length 4C 5.8 cm LV Diastolic Volume MOD 2C 106.6 cm??? LV Systolic Volume MOD 2C 60.0 cm??? LV Ejection Fraction MOD 2C 43.7 % LV Cardiac Index MOD 2C 2386.6 cm???/min???m??? LV Diastolic Length 2C 6.5 cm LV Systolic Length 2C 6.4 cm LA Volume 120.5 cm??? 18 - 58 / 22 - 52 cm??? LA Volume Index 85.6 cm???/m??? 16 - 28 cm???/m??? DOPPLER AI Peak Velocity 338.5 cm/s AI Peak Gradient 45.8 mmHg AI Pressure Half Time 367.4 ms LVOT Peak Velocity 151.8 cm/s LVOT Peak Gradient 9.2 mmHg LVOT Velocity Time Integral 32.5 cm LVOT Stroke Volume 41.5 cm??? LVOT Stroke Volume Index 28.1 ml/m??? LVOT Cardiac Index 2121.6 cm???/min???m??? MV Peak Velocity 177.1 cm/s MV Peak Gradient 12.5 mmHg MV Mean Velocity 84.9 cm/s MV Mean Gradient 3.9 mmHg MV Velocity Time Integral 37.3 cm MV Area PHT 3.2 cm??? MV Deceleration Time 258.6 ms TR Peak Velocity 254.5 cm/s TR Peak Gradient 25.9 mmHg Right Atrial Pressure 15.0 mmHg Pulmonary Artery Systolic Pressu 40.9 mmHg Right Ventricular Systolic Press 40.9 mmHg FINDINGS Left Ventricle Left ventricular ejection fraction is estimated at 50 %. No obvious regional wall motion abnormalities.left ventricular cavity size normal. Moderately increased left ventricular systolic volume. Mildly decreased left ventricular ejection fraction. Right Ventricle Normal right ventricular size. Reduced right ventricular global systolic function. Mild pulmonary hypertension. Right ventricular systolic pressure estimated at 41 mm hg. Right Atrium Mild right atrial dilatation. Left Atrium Severely increased left atrial diameter. Severely increased left atrial volume. Moderately increased left atrial area. Mitral Valve Mechanical mitral valve with mean gradient of 5 mmHg. Mitral regurgitation cannot be accurately assessed. Aortic Valve Trileaflet aortic valve. Diffuse thickening (sclerosis) of the aortic valve cusps without reduced excursion. Moderate aortic regurgitation. No aortic stenosis. Calcified aortic valve leaflets without significant restriction Tricuspid Valve Tricuspid valve not well visualized. No tricuspid stenosis. Mild tricuspid regurgitation. Pulmonic Valve Structurally normal pulmonic valve. No pulmonic stenosis. Trace pulmonic regurgitation. Pericardium No pericardial effusion. Aorta Aortic annulus normal. CONCLUSIONS Left ventricle size and systolic function is fairly well-preserved. Mechanical stable mitral valve. Cannot assess regurgitation no significant gradient. Tricuspid valve repair noted. Aortic valve calcified leaflets but no significant restriction no stenosis. No pericardial effusion mild pulmonary hypertension Previewed by: Dr. Margarita Nichole MD (Electronically Signed) Final Date: 14 March 2025 10:56
--- NOTE | 2025-03-14 11:00 | P.PN ---
Subjective HISTORY OF PRESENTING ILLNESS: 69-year-old presented because of left leg hematoma and swelling. Patient reports that she woke up with the swelling with increased pain but denied any difficulty swallowing. Patient does report that couple days ago she was complaining of some sore throat for which she got antibiotics from PCP. Recently she also had UTI for which she was treated with antibiotics. She does have a history of mechanical aortic valve for which she is on warfarin therapy. On admission she was noted to have supratherapeutic INR with INR of more than 10 along with concerns of spontaneous hematoma in left neck. CT head showed blood collection inferior aspect of left scalp no Cleta mastoid muscle. It did not appear to affect deeper structures. Chest x-ray did not show any congestion or consolidation. 03/13/2025 Patient seen and examined resting comfortably in bed in no acute distress. Blood pressure 83/55 heart rate 70 afebrile maintaining oxygen saturation on room air. Laboratory data reviewed, hemoglobin 9.8, platelets 427, INR 1. 03/14/2025 Patient seen and examined resting comfortably in bed in no acute distress. Echocardiogram reveals preserved LV systolic function with ejection fraction 50%, mechanical mitral valve with a mean gradient of 5, moderate aortic regurgitation, mild tricuspid regurgitation RVSP 40. Laboratory data reviewed, INR 1.2. Blood pressure 113/73 heart rate 69. PHYSICAL EXAMINATION: Neck: Left neck soft tissue swelling Lungs: Clear to auscultation. Heart: Regular rate and rhythm, crisp mechanical S2, mild systolic murmur Abdomen: Soft nontender, positive bowel sounds. Extremities: No edema, intact distal pulses. Neuro: Alert, oriented, no focal deficits. Detailed neuro exam was not performed. ASSESSMENT: Supratherapeutic INR likely because of recent antibiotic use for UTI Spontaneous left neck hematoma from supratherapeutic INR, currently resolving History of mechanical mitral valve and tricuspid valve repair Hypertension Dyslipidemia History of PPM PLAN: Continue heparin and warfarin. Repeat PT/INR in the AM. We will wait for INR to get above 1.7 to safely d/c heparin. Nurse Practitioner note has been reviewed, I agree with a documented findings and plan of care. Patient was seen and examined. Objective - Vital Signs Vital signs: Vital Signs Temp 98.5 F 03/14/25 07:14 Pulse 69 03/14/25 07:14 Resp 18 03/14/25 07:14 BP 113/73 03/14/25 07:14 Pulse Ox 96 03/14/25 07:14 FiO2 Intake & Output 03/13/25 03/14/25 03/14/25 18:59 06:59 18:59 Intake Total 260.619 64.579 83.395 Balance 260.619 64.579 83.395 Weight 43.091 kg Intake: Intake, IV Titration 142.619 64.579 83.395 Amount Heparin Sod,Pork in 0.45% 142.619 64.579 83.395 NaCl 25,000 unit In 0.45 % NaCl 1 250ml.bag @ 12 UNITS/KG/HR 5.171 mls/hr IV .Q24H [facility] Rx#: [id number] Oral 118 Other: Voiding Method Toilet # Voids 2 1 # Bowel Movements 1 - Labs CBC & Chem 7: 03/13/25 06:47 03/12/25 07:35 Labs: Abnormal Lab Results - Last 24 Hours (Table) 03/13/25 03/14/25 Range/Units 15:08 05:38 PT 12.8 H (10.0-12.5) sec INR 1.2 H (<1.2) APTT 40.9 H 33.5 H (22.0-30.0) sec
--- NOTE | 2025-03-15 06:24 | P.PN ---
Subjective 69-year-old female presents emergency department via EMS chief complaint of left-sided neck pain and swelling. Patient states she has had a sore throat for last few days was seen by PCP yesterday was placed on oral antibiotics. Patient states she woke up with swelling today increasing pain denies any difficulty swallowing states just sore patient states she had no trauma but there is bruising noted and she is unsure why but she states she bruises very easily secondary to being on Coumadin she states she is on Coumadin from prior strokes, mechanical aortic valve. Blood work completed in ED reveals a WBC of 7.7, hemoglobin 10.2 and platelet count of 388, sodium 137, potassium 4.7, BUN/creatinine of 12/0.62 and blood glucose of 120, PT of 107.7 with INR greater than 10 and PTT of 81.9, total bilirubin elevated at 1.8, AST of 55 and alkaline phosphatase of 186 -CT soft tissue neck showing diffuse swelling, no localized or focal abscess cannot rule out malignant process. Patient received vitamin K in ED and is being admitted for further evaluation and treatment --INR at 1.2 this morning; globin remains stable; patient remains off of Coumadin - Will continue to monitor H&H closely for every 24 hours - Await cardiology evaluation and recommendations on anticoagulation 03/13 Patient complains from neck pain about 6/10 in severity. Swelling on the left side Also from right hip pain about 9/10 in severity. She has severe osteoarthritis and plan to undergo arthroplasty with her orthopedic surgeon on the of the March Patient states that her swelling in her left leg decreased by about 80% Patient states that all started with some food stuck in her left tonsil area she has to use her finger to dislodge it, she succeeded but she describes her buccal cavity this is followed by infection, she followed up with her PCP Dr. Egan who prescribed her antibiotics for both suspected infected in the tonsillar area and UTI. Her infection improved but there was drug-drug interaction and warfarin martyr than 10 and she replied and her left tonsillar area following her trauma as above. Patient currently placed on heparin drip as blood thinner challenge and if remains stable may resume warfarin. INR is 1.1 today. Received 3 mg of Coumadin tonight Patient echocardiogram is pending 03/14 Patient left-sided neck swelling almost disappeared She denies any other new complaint Her INR 1.2 today she remains on bridging with heparin drip. Cardiology recommended to continue anticoagulation for his mechanical aortic valve We will consult ENT for her neck swelling although it is improving otherwise patient can follow-up as an outpatient Objective - Vital Signs Vital signs: Vital Signs Temp 98.5 F 03/14/25 07:14 Pulse 69 03/14/25 07:14 Resp 18 03/14/25 07:14 BP 113/73 03/14/25 07:14 Pulse Ox 96 03/14/25 07:14 FiO2 Intake & Output 03/13/25 03/14/25 03/14/25 18:59 06:59 18:59 Intake Total 260.619 64.579 83.395 Balance 260.619 64.579 83.395 Weight 43.091 kg Intake: Intake, IV Titration 142.619 64.579 83.395 Amount Heparin Sod,Pork in 0.45% 142.619 64.579 83.395 NaCl 25,000 unit In 0.45 % NaCl 1 250ml.bag @ 12 UNITS/KG/HR 5.171 mls/hr IV .Q24H [facility] Rx#: [id number] Oral 118 Other: Voiding Method Toilet # Voids 2 1 # Bowel Movements 1 - Exam GENERAL: The patient is alert and oriented x3, not in any acute distress. Well developed, well nourished. HEENT: Pupils are round and equally reacting to light. EOMI. No scleral icterus. No conjunctival pallor. Normocephalic, atraumatic. No pharyngeal erythema. No thyromegaly. - Mild left swelling around and below the left angle of the mandible CARDIOVASCULAR: S1 and S2 present. No murmurs, rubs, or gallops. PULMONARY: Chest is clear to auscultation, no wheezing , no crackles. ABDOMEN: Soft, nontender, nondistended, normoactive bowel sounds. No palpable organomegaly. MUSCULOSKELETAL: No joint swelling or deformity. EXTREMITIES: No cyanosis, clubbing, or pedal edema. NEUROLOGICAL: Gross neurological examination did not reveal any focal deficits. SKIN: No rashes. no petechiae. - Labs CBC & Chem 7: 03/13/25 06:47 03/12/25 07:35 Labs: Abnormal Lab Results - Last 24 Hours (Table) 06/23/25 06/24/25 Range/Units 15:08 05:38 PT 12.8 H (10.0-12.5) sec INR 1.2 H (<1.2) APTT 40.9 H 33.5 H (22.0-30.0) sec Assessment and Plan Assessment: 1. Coumadin induced coagulopathy - Patient takes Coumadin for mechanical aortic valve and history of prior CVA - Patient received vitamin K in ED; will monitor PT/INR closely - Coumadin has been placed on hold - Consult cardiology for recommendations on anticoagulation 2. Neck hematoma; related to Coumadin toxicity; no signs of compression or respiratory distress; will continue to monitor 3. Acute blood loss anemia; monitor H&H every 6 hours; we will transfuse if hemoglobin is less than 7 4. Elevated liver enzymes; will repeat liver enzymes with plans to order hepatic ultrasound if liver enzymes continue to trend up 5. Hypertension; lisinopril 20 mg daily; metoprolol 25 mg twice daily 6. Hyperlipidemia; Lipitor 40 mg p.o. nightly 7. CAD/CHF; stable; continue with lisinopril, metoprolol, statin therapy; continue with home dose of Lasix 8. History of atrial fibrillation; patient takes metoprolol and Coumadin; Coumadin placed on hold due to coagulopathy and hematoma 9. Anxiety/depression; Lexapro 10 mg daily DVT prophylaxis; SCDs only given coagulopathy CODE STATUS; full code
[2025-03-15 06:34] LABS: INR 1.7 (<1.2); Prothrombin Time 17.1 sec (10.0-12.5)
[2025-03-15 06:35] LABS: Partial Thromboplastin Time 60.9 sec (22.0-30.0)
--- NOTE | 2025-03-15 11:53 | P.PN ---
Subjective HISTORY OF PRESENTING ILLNESS: 69-year-old presented because of left leg hematoma and swelling. Patient reports that she woke up with the swelling with increased pain but denied any difficulty swallowing. Patient does report that couple days ago she was complaining of some sore throat for which she got antibiotics from PCP. Recently she also had UTI for which she was treated with antibiotics. She does have a history of mechanical aortic valve for which she is on warfarin therapy. On admission she was noted to have supratherapeutic INR with INR of more than 10 along with concerns of spontaneous hematoma in left neck. CT head showed blood collection inferior aspect of left scalp no Cleta mastoid muscle. It did not appear to affect deeper structures. Chest x-ray did not show any congestion or consolidation. 03/13/2025 Patient seen and examined resting comfortably in bed in no acute distress. Blood pressure 83/55 heart rate 70 afebrile maintaining oxygen saturation on room air. Laboratory data reviewed, hemoglobin 9.8, platelets 427, INR 1. 03/14/2025 Patient seen and examined resting comfortably in bed in no acute distress. Echocardiogram reveals preserved LV systolic function with ejection fraction 50%, mechanical mitral valve with a mean gradient of 5, moderate aortic regurgitation, mild tricuspid regurgitation RVSP 40. Laboratory data reviewed, INR 1.2. Blood pressure 113/73 heart rate 69. 03/15/2025 Patient seen and examined resting comfortably in bed in no acute distress. Blood pressure 117/68 heart rate 72 afebrile maintaining oxygen saturation on room air. INR today is 1.7. PHYSICAL EXAMINATION: Neck: Left neck soft tissue swelling Lungs: Clear to auscultation. Heart: Regular rate and rhythm, crisp mechanical S2, mild systolic murmur Abdomen: Soft nontender, positive bowel sounds. Extremities: No edema, intact distal pulses. Neuro: Alert, oriented, no focal deficits. Detailed neuro exam was not performed. ASSESSMENT: Supratherapeutic INR likely because of recent antibiotic use for UTI Spontaneous left neck hematoma from supratherapeutic INR, currently resolving History of mechanical mitral valve and tricuspid valve repair Hypertension Dyslipidemia History of PPM PLAN: Continue heparin and warfarin. Repeat PT/INR in the AM. Once INR is greater than 1.7 x 2 days she can be discharged home. Goal INR with a mechanical valve is 2.5-3.5. Nurse Practitioner note has been reviewed, I agree with a documented findings and plan of care. Patient was seen and examined. Objective - Vital Signs Vital signs: Vital Signs Temp 98.1 F 03/15/25 07:00 Pulse 72 03/15/25 07:00 Resp 16 03/15/25 07:00 BP 117/68 03/15/25 07:00 Pulse Ox 99 03/15/25 07:00 FiO2 Intake & Output 03/14/25 03/15/25 03/15/25 18:59 06:59 18:59 Intake Total 389.520 151.544 118 Balance 389.520 151.544 118 Intake: Intake, IV Titration 149.520 151.544 Amount Heparin Sod,Pork in 0.45% 149.520 151.544 NaCl 25,000 unit In 0.45 % NaCl 1 250ml.bag @ 12 UNITS/KG/HR 5.171 mls/hr IV .Q24H [facility] Rx#: [id number] Oral 240 118 Other: Voiding Method Toilet Toilet Toilet Bedside Commode Bedside Commode Bedside Commode # Voids 3 3 - Labs CBC & Chem 7: 03/13/25 06:47 03/12/25 07:35 Labs: Abnormal Lab Results - Last 24 Hours (Table) 03/14/25 03/15/25 Range/Units 14:52 05:55 PT 17.1 H (10.0-12.5) sec INR 1.7 H (<1.2) APTT 44.6 H 60.9 H (22.0-30.0) sec
[2025-03-15] MEDS: HYDROmorphone 0.5 MG/0.5 ML SYRINGE IVP STA (14:56)
[2025-03-15] MEDS: CAPSAICIN 0.025% CREAM 60 GM TUBE TOPICAL SCH (15:22)
--- NOTE | 2025-03-15 23:32 | P.PN ---
Subjective 69-year-old female presents emergency department via EMS chief complaint of left-sided neck pain and swelling. Patient states she has had a sore throat for last few days was seen by PCP yesterday was placed on oral antibiotics. Patient states she woke up with swelling today increasing pain denies any difficulty swallowing states just sore patient states she had no trauma but there is bruising noted and she is unsure why but she states she bruises very easily secondary to being on Coumadin she states she is on Coumadin from prior strokes, mechanical aortic valve. Blood work completed in ED reveals a WBC of 7.7, hemoglobin 10.2 and platelet count of 388, sodium 137, potassium 4.7, BUN/creatinine of 12/0.62 and blood glucose of 120, PT of 107.7 with INR greater than 10 and PTT of 81.9, total bilirubin elevated at 1.8, AST of 55 and alkaline phosphatase of 186 -CT soft tissue neck showing diffuse swelling, no localized or focal abscess cannot rule out malignant process. Patient received vitamin K in ED and is being admitted for further evaluation and treatment --INR at 1.2 this morning; globin remains stable; patient remains off of Coumadin - Will continue to monitor H&H closely for every 24 hours - Await cardiology evaluation and recommendations on anticoagulation 03/13 Patient complains from neck pain about 6/10 in severity. Swelling on the left side Also from right hip pain about 9/10 in severity. She has severe osteoarthritis and plan to undergo arthroplasty with her orthopedic surgeon on the of the March Patient states that her swelling in her left leg decreased by about 80% Patient states that all started with some food stuck in her left tonsil area she has to use her finger to dislodge it, she succeeded but she describes her buccal cavity this is followed by infection, she followed up with her PCP Dr. Egan who prescribed her antibiotics for both suspected infected in the tonsillar area and UTI. Her infection improved but there was drug-drug interaction and warfarin martyr than 10 and she replied and her left tonsillar area following her trauma as above. Patient currently placed on heparin drip as blood thinner challenge and if remains stable may resume warfarin. INR is 1.1 today. Received 3 mg of Coumadin tonight Patient echocardiogram is pending 03/14 Patient left-sided neck swelling almost disappeared She denies any other new complaint Her INR 1.2 today she remains on bridging with heparin drip. Cardiology recommended to continue anticoagulation for his mechanical aortic valve We will consult ENT for her neck swelling although it is improving otherwise patient can follow-up as an outpatient 03/15 Patient is awake and alert Her left neck mass almost disappeared She remains on heparin drip for her A-fib and mechanical aortic valve her INR today is 1.7. Continue with Coumadin Also patient has advanced right hip osteoarthritis per History with the plan to undergo 2 for recent surgical joint replacement. Add more pain medication Objective - Vital Signs Vital signs: Vital Signs Temp 97.4 F L 03/15/25 13:59 Pulse 69 03/15/25 13:59 Resp 17 03/15/25 13:59 BP 99/61 03/15/25 13:59 Pulse Ox 99 03/15/25 13:59 FiO2 Intake & Output 03/15/25 03/15/25 03/16/25 06:59 18:59 06:59 Intake Total 151.544 236 Balance 151.544 236 Intake: Intake, IV Titration 151.544 Amount Heparin Sod,Pork in 0.45% 151.544 NaCl 25,000 unit In 0.45 % NaCl 1 250ml.bag @ 12 UNITS/KG/HR 5.171 mls/hr IV .Q24H [facility] Rx#: [id number] Oral 236 Other: Voiding Method Toilet Toilet Bedside Commode Bedside Commode # Voids 3 1 - Exam GENERAL: The patient is alert and oriented x3, not in any acute distress. Well developed, well nourished. HEENT: Pupils are round and equally reacting to light. EOMI. No scleral icterus. No conjunctival pallor. Normocephalic, atraumatic. No pharyngeal erythema. No thyromegaly. - Mild left swelling around and below the left angle of the mandible CARDIOVASCULAR: S1 and S2 present. No murmurs, rubs, or gallops. PULMONARY: Chest is clear to auscultation, no wheezing , no crackles. ABDOMEN: Soft, nontender, nondistended, normoactive bowel sounds. No palpable organomegaly. MUSCULOSKELETAL: No joint swelling or deformity. EXTREMITIES: No cyanosis, clubbing, or pedal edema. NEUROLOGICAL: Gross neurological examination did not reveal any focal deficits. SKIN: No rashes. no petechiae. - Labs CBC & Chem 7: 03/13/25 06:47 03/12/25 07:35 Labs: Abnormal Lab Results - Last 24 Hours (Table) 03/15/25 Range/Units 05:55 PT 17.1 H (10.0-12.5) sec INR 1.7 H (<1.2) APTT 60.9 H (22.0-30.0) sec Assessment and Plan Assessment: 1. Coumadin induced coagulopathy - Patient takes Coumadin for mechanical aortic valve and history of prior CVA - Patient received vitamin K in ED; will monitor PT/INR closely - Coumadin has been placed on hold - Consult cardiology for recommendations on anticoagulation 2. Neck hematoma; related to Coumadin toxicity; no signs of compression or respiratory distress; will continue to monitor 3. Acute blood loss anemia; monitor H&H every 6 hours; we will transfuse if hemoglobin is less than 7 4. Elevated liver enzymes; will repeat liver enzymes with plans to order hepatic ultrasound if liver enzymes continue to trend up 5. Hypertension; lisinopril 20 mg daily; metoprolol 25 mg twice daily 6. Hyperlipidemia; Lipitor 40 mg p.o. nightly 7. CAD/CHF; stable; continue with lisinopril, metoprolol, statin therapy; continue with home dose of Lasix 8. History of atrial fibrillation; patient takes metoprolol and Coumadin; Coumadin placed on hold due to coagulopathy and hematoma 9. Anxiety/depression; Lexapro 10 mg daily DVT prophylaxis; SCDs only given coagulopathy CODE STATUS; full code
[2025-03-16 03:55] LABS: Appearance,Urine Cloudy (Clear); Bacteria,Urine Moderate /hpf; Bilirubin,Urine Negative (Negative); Blood,Urine Negative (Negative); Budding Yeast,Urine Rare /hpf; Color,Urine Colorless; Glucose,Urine (UA) Negative (Negative); Ketones,Urine Negative (Negative); Leukocyte Esterase,Urine Large (Negative); Nitrite,Urine Negative (Negative); Protein,Urine Negative (Negative); RBC,Urine 2 /hpf (0-5); Specific Gravity,Urine 1.007 (1.001-1.035); Squamous Epithelial Cell,Urine 1 /hpf (0-4); Urobilinogen,Urine <2.0 mg/dL (<2.0); WBC,Urine 58 /hpf (0-5)
[2025-03-16 06:33] LABS: INR 2.3 (<1.2); Partial Thromboplastin Time 86.2 sec (22.0-30.0); Prothrombin Time 22.7 sec (10.0-12.5)
[2025-03-16 09:11] VITALS: TEMP 98.6
--- NOTE | 2025-03-16 11:49 | P.PN ---
Subjective Progress Note Date: 03/16/25 HISTORY OF PRESENTING ILLNESS: 69-year-old presented because of left leg hematoma and swelling. Patient r eports that she woke up with the swelling with increased pain but denied any difficulty swallowing. Patient does report that couple days ago she was complaining of some sore throat for which she got antibiotics from PCP. Recently she also had UTI for which she was treated with antibiotics. She does have a history of mechanical aortic valve for which she is on warfarin therapy. On admission she was noted to have supratherapeutic INR with INR of more than 10 along with concerns of spontaneous hematoma in left neck. CT head showed blood collection inferior aspect of left scalp no Cleta mastoid muscle. It did not appear to affect deeper structures. Chest x-ray did not show any congestion or consolidation. 03/13/2025 Patient seen and examined resting comfortably in bed in no acute distress. Blood pressure 83/55 heart rate 70 afebrile maintaining oxygen saturation on room air. Laboratory data reviewed, hemoglobin 9.8, platelets 427, INR 1. 03/14/2025 Patient seen and examined resting comfortably in bed in no acute distress. Echocardiogram reveals preserved LV systolic function with ejection fraction 50%, mechanical mitral valve with a mean gradient of 5, moderate aortic regur gitation, mild tricuspid regurgitation RVSP 40. Laboratory data reviewed, INR 1.2. Blood pressure 113/73 heart rate 69. 03/15/2025 Patient seen and examined resting comfortably in bed in no acute distress. Blood pressure 117/68 heart rate 72 afebrile maintaining oxygen saturation on room air. INR today is 1.7. 03/16/2025 INR is 2.3 today. Hemodynamic stable. No new concerns of hematoma or bleeding. Cardiovascularly stable. PHYSICAL EXAMINATION: Neck: Left neck soft tissue swelling Lungs: Clear to auscultation. Heart: Regular rate and rhythm, crisp mechanical S2, mild systolic murmur Abdomen: Soft nontender, positive bowel sounds. Extremities: No edema, intact distal pulses. Neuro: Alert, oriented, no focal deficits. Detailed neuro exam was not performed. 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 Objective - Vital Signs Vital signs: Vital Signs Temp 98.6 F 03/16/25 07:20 Pulse 70 03/16/25 07:20 Resp 18 03/16/25 07:20 BP 91/58 03/16/25 07:20 Pulse Ox 97 03/16/25 07:20 FiO2 Intake & Output 03/15/25 03/16/25 03/16/25 18:59 06:59 18:59 Intake Total 236 237.620 Balance 236 237.620 Intake: Intake, IV Titration 237.620 Amount Heparin Sod,Pork in 0.45% 237.620 NaCl 25,000 unit In 0.45 % NaCl 1 250ml.bag @ 12 UNITS/KG/HR 5.171 mls/hr IV .Q24H [facility] Rx#: [id number] Oral 236 Other: Voiding Method Toilet Toilet Toilet Bedside Commode Bedside Commode Bedside Commode # Voids 1 2 - Labs CBC & Chem 7: 03/13/25 06:47 03/12/25 07:35 Labs: Abnormal Lab Results - Last 24 Hours (Table) 03/16/25 03/16/25 Range/Units 03:34 05:39 PT 22.7 H (10.0-12.5) sec INR 2.3 H (<1.2) APTT 86.2 H (22.0-30.0) sec Urine Appearance Cloudy H (Clear) Ur Leukocyte Esterase Large H (Negative) Urine WBC 58 H (0-5) /hpf Urine WBC Clumps Occasional H (None) /hpf Urine Bacteria Moderate H (None) /hpf Urine Yeast (Budding) Rare H (None) /hpf
[2025-03-16 14:30] VITALS: BP 100/56; PULSE 69; RESP 17
--- NOTE | 2025-03-20 16:55 | CDI ---
Documentation Clarification Form Date: 03/20/25 From: LIBRA Marion Admit Date: 03/11/2025 01:50:00 PM Patient Name: Vinicio Lopez Visit Number: [id number] Discharge Date: 03/16/2025 05:50:00 PM ATTENTION: The Clinical Documentation Specialists (CDI) and [facility] Coding Staff appreciate your assistance in clarifying documentation. Please respond to the clarification below the line at the bottom and electronically sign. The CDI & [facility] Coding staff will review the response and follow-up if needed. Please note: Queries are made part of the Legal Health Record. If you have any questions, please contact the author of this message via ITS. Doctor/Provider: Vj Tijerina Your patient has the documented diagnosis of unspecified CHF on the H&P, progress notes and cardiology consult. Additional information regarding the type and acutiy of CHF is requested. History/Risk Factors: Ms Lopez was admitted with left sided neck pain and swelling. Patient has a known history of CHF, CAD, atrial fibrillation and a prior mechanical aortic valve placement. She also has a pacemaker in situ. VS on admission: T 99.4, Pulse 70, RR 14, BP 113/65 BNP: not evaluated Echocardiogram Results (03/13): EF at 50% Chest X Ray: unremarkable Treatment: 40mg PO of Lasix in the ED, home dose 20mg PO daily given the remaining days In your professional opinion, can you please clarify the type and acuity of CHF if known? [ ] Acute Systolic Heart Failure (reduced EF) [ ] Chronic Systolic Heart Failure (reduced EF) [ ] Acute on Chronic Systolic Heart Failure (reduced EF) [ ] Acute Diastolic Heart Failure (preserved EF) [ ] Chronic Diastolic Heart Failure (preserved EF) [ ] Acute on Chronic Diastolic Heart Failure (preserved EF) [ ] Acute Systolic & Diastolic Heart Failure [ ] Chronic Systolic & Diastolic Heart Failure [ ] Acute on Chronic Heart Failure Systolic & Diastolic Heart Failure [ ] Other, please specify [ ] Unable to determine MTDD
--- NOTE | 2025-03-28 13:07 | CDI ---
Documentation Clarification Form Date: 03/28/25 From: LIBRA Marion Admit Date: 03/11/2025 01:50:00 PM Patient Name: Vinicio Lopez Visit Number: [id number] Discharge Date: 03/16/2025 05:50:00 PM ATTENTION: The Clinical Documentation Specialists (CDI) and [facility] Coding Staff appreciate your assistance in clarifying documentation. Please respond to the clarification below the line at the bottom and electronically sign. The CDI & [facility] Coding staff will review the response and follow-up if needed. Please note: Queries are made part of the Legal Health Record. If you have any questions, please contact the author of this message via ITS. Doctor/Provider: Vj Tijerina Your patient has the documented diagnosis of unspecified CHF in the history section of the H&P, progress notes and cardiology consult. Additional information regarding the type of CHF is requested. History/Risk Factors:Ms Lopez was admitted with left sided neck pain and swelling. Patient has a known history of CHF, CAD, atrial fibrillation and a prior mechanical aortic valve placement. She also has a pacemaker in situ. VS on admission: T 99.4, Pulse 70, RR 14, BP 113/65 BNP: not evaluated Echocardiogram Results (03/13): EF at 50% Chest X Ray: unremarkable Treatment: 40mg PO of Lasix in the ED, home dose 20mg daily given the remaining days In your professional opinion, can you please clarify the type of CHF if known? [ ] Chronic Systolic Heart Failure (reduced EF) [ X ] Chronic Diastolic Heart Failure (preserved EF) [ ] Chronic Systolic & Diastolic Heart Failure [ ] Other, please specify [ ] Unable to determine (Template Last Revised: October 2020) MTDD
== END 2025-03-16 17:50 | disposition home health service (06) | DRG 813 ==
LOC: EC 09:26 → 6NMEDSUR 13:49 → OBSVTOIN 13:50 → 6NMEDSUR 17:59
PROVIDERS: ADMIT Internal Medicine; ATTEND Internal Medicine
DX: D68.32 Hemorrhagic disorder due to extrinsic circulating anticoagulants (principal); I50.32 Chronic diastolic (congestive) heart failure; D62 Acute posthemorrhagic anemia; I11.0 Hypertensive heart disease with heart failure; J43.9 Emphysema, unspecified; Z95.2 Presence of prosthetic heart valve; F32.A Depression, unspecified; I48.91 Unspecified atrial fibrillation; M16.11 Unilateral primary osteoarthritis, right hip; M79.81 Nontraumatic hematoma of soft tissue; I35.1 Nonrheumatic aortic (valve) insufficiency; F41.9 Anxiety disorder, unspecified; I25.10 Atherosclerotic heart disease of native coronary artery without angina pectoris; E78.5 Hyperlipidemia, unspecified; F17.210 Nicotine dependence, cigarettes, uncomplicated; T45.515A Adverse effect of anticoagulants, initial encounter; Z79.01 Long term (current) use of anticoagulants; Z86.73 Personal history of transient ischemic attack (TIA), and cerebral infarction without residual deficits; Z79.51 Long term (current) use of inhaled steroids; Z79.82 Long term (current) use of aspirin; Z79.83 Long term (current) use of bisphosphonates; Z79.899 Other long term (current) drug therapy; Z82.49 Family history of ischemic heart disease and other diseases of the circulatory system; I25.2 Old myocardial infarction
CPT/HCPCS: 36415; 70491; 71046; 80048; 80053; 80076; 81001; 84145; 85025; 85610; 85730; 86308; 87077; 87086; 87186; 93306; 96374; 99285

== ENCOUNTER → 2025-04-06 | Outpatient (CLI) | payer MEDICARE ==
[2025-04-06 12:10] LABS: Partial Thromboplastin Time 24.2 sec (22.0-30.0)
[2025-04-06 15:13] LABS: ALT 14 U/L (8-44); AST 33 U/L (13-35); Albumin 4.3 g/dL (3.8-4.9); Albumin/Globulin Ratio 1.48 Ratio (1.60-3.17); Alkaline Phosphatase 184 U/L (41-126); Anion Gap 12.60 mmol/L (4.00-12.00); BUN/Creat Ratio 14.00 Ratio (12.00-20.00); Blood Urea Nitrogen 11.2 mg/dL (9.0-27.0); Calcium 9.6 mg/dL (8.7-10.3); Carbon Dioxide 24.4 mmol/L (21.6-31.8); Chloride 102 mmol/L (96-109); Globulin 2.9 g/dL (1.6-3.3); Glucose 97 mg/dL (70-110); Potassium 4.6 mmol/L (3.5-5.5); Sodium 139 mmol/L (135-145); Total Protein 7.2 g/dL (6.2-8.2)
[2025-04-06 15:43] LABS: HCT 36.6 % (37.2-46.3); HGB 11.3 g/dL (12.0-15.0); MCH 30.2 pg (27.0-32.0); MCHC 30.9 g/dL (32.0-37.0); MCV 97.9 FL (80.0-97.0); NRBC Per 100 WBC 0 X 10*3/uL (0.00-0.01); Platelet Count 357 X 10*3/uL (140-440); RBC 3.74 X 10*6/uL (4.10-5.20); RDW 15.0 % (11.5-14.5); WBC 6.64 X 10*3/uL (4.50-10.00)
[2025-04-06 22:03] LABS: INR 1.0 (<1.2); Prothrombin Time 10.9 sec (10.0-12.5)
== END | disposition home or self-care (01) ==
LOC: LABPAT 10:51
PROVIDERS: ATTEND Orthopaedic Surgery Hand Surgery
DX: Z01.812 Encounter for preprocedural laboratory examination (principal); M16.11 Unilateral primary osteoarthritis, right hip; Z22.322 Carrier or suspected carrier of Methicillin resistant Staphylococcus aureus
CPT/HCPCS: 80053; 85027; 85610; 85730; 86850; 86900; 86901; 87070